=== PATIENT | female | born 1945 | race Caucasian/White ===

== ENCOUNTER 2018-12-14 07:03 | Day surgery (SDC) | payer MEDICARE, SELFPAY ==
--- NOTE | 2018-12-14 | BUN_PTH ---
PATIENT: TREY CALVERT LOC[place] [facility] [place][id number] AGE/SX: 73/F ROOM: RE12/14/[address]: Dr. Marcelo Ragland DPM : 1945 BED: DIS: 12/14/2018 SPEC #: [id number] RECD: 12/14/18 14:23 STATUS: RACQUEL YIN #: [id number] TONY: 12/14/18 00:[address]: Marcelo Ragland DEPT: SURGICAL PATHOLOGY RECD BY: Temo Dickinson ENTERED: 12/14/18 14:23 SP TYPE: BUNION OTHR DR: Dr. Marcelo Borges MD Tissues: Bony tissue, NOS Procedures: Decalcification bone/plaque Surgery Specimen Level IV HEADER OPERATION: Bunionectomy/amputation second toe, left PRE-OP DIAGNOSIS: Hallux valgus bunion, second digit hammertoe TISSUE SUBMITTED: Bunion from great toe and second toe MICROSCOPIC DIAGNOSIS Bunion great toe and second toe, amputation second toe and bunionectomy: Pieces of bone and portion of toe with reactive changes, clinically bunion great toe and second toe. SJ:antonella 12/19/18 MICROSCOPIC DESCRIPTION Slides are reviewed. GROSS DESCRIPTION Received in fixative is one container labeled with the patient's name and designated bunion left great toe, second toe of left foot. The specimen consists of a toe received in an almost near L-shaped configuration measuring 3.5 cm in length and approximately 1.5 cm in diameter. Also present in the specimen container are four discoid fragments of bone measuring in aggregate 3.5 x 2.5 x 0.3 cm. Vamp Cut Out Worker sections are submitted in three cassettes after decalcification as follows: 1 - veterans contact representative section of bone free in container, 2 & 3 - longitudinal section of toe. / AM:antonella 12/14/18 TC:5 CPT: 71353, 23558
[2018-12-14 07:25] VITALS: BP 151/75; PULSE 65; RESP 16; TEMP 36.7; O2SAT 95; BMI 36.9
--- NOTE | 2018-12-14 08:40 | RAD_ITS ---
STUDY: X-RAY LEFT FOOT, RIGHT TOE REASON FOR EXAM: Female, 73 years old. Bunionectomy. Amputation of the second toe. TECHNIQUE: 3 coned-down intraoperative view(s) of the toe were obtained. COMPARISON: None. FINDINGS: Intraoperative imaging demonstrates bunionectomy and resection of the second toe. RAD/Toe(s) Min 2 Views IMPRESSION: Intraoperative imaging provided for bunionectomy and resection of the second toe. Electronically Signed: Saad Vaca MD at 13:22 EST , Service support ,
[2018-12-14] MEDS: Bupivacaine Mpf 0.5% 30 ML VIAL (09:32)
--- NOTE | 2018-12-14 09:45 | RAD_ITS ---
STUDY: X-RAY - LEFT FOOT CLINICAL: Female, 73 years old. Status post bunionectomy and resection of the second toe. TECHNIQUE: 2 view(s) of the foot. COMPARISON: None. FINDINGS: There is a plantar calcaneal spur. Normal visualized subtalar, talonavicular, calcaneocuboid, tarsal and tarsometatarsal articulations. Normal metatarsi. The patient is status post bunionectomy. Normal tibial and fibular sesamoid bones. Normal interphalangeal joint of the great toe. Normal phalanges of the great toe. Normal second through fifth metatarsophalangeal joints. Status post resection of the phalanges of the second toe. Soft tissue swelling. RAD/Foot 2 Views IMPRESSION: Postoperative changes secondary to a bunionectomy and resection of the second toe. Electronically Signed: Saad Vaca MD at 11:41 EST , Service support ,
[2018-12-14 09:46] VITALS: BP 147/68; BP 151/75; PULSE 75; RESP 16; TEMP 36.1; O2SAT 95
--- NOTE | 2018-12-14 09:47 | DCINST_ITS ---
Discharge Diet: Light diet - advance as tolerated Discharge Activity: May Not Drive, Use Walker Weight Bearing Status: Partial weight bearing - Ok to put weight only on left heel with use of walker, no weight on toes of the left foot Keep extremity elevated above heart level: Left Leg - Keep foot elevated for at least 50 minutes of every hour using pillows Call your doctor if your incision/area has: Continuous Slow Oozing, Sudden Increased Bleeding, Foul Smelling Discharge Call your doctor if you observe: Fever of 101 or Higher, Shortness of breath, Chest pain, Calf discomfort, Uncontrolled pain Cleanse incision/area with: Do not get Incision Wet, Keep Dressing Clean & Dry Allergies/Adverse Reactions: Allergies meperidine HCl [From Demerol] Allergy (Severe, Verified 12/07/18 10:47) Swelling poison adelaide extract [Poison Adelaide Extract] Allergy (Verified 12/07/18 10:47) Rash atorvastatin calcium [From Lipitor] Adverse Reaction (Verified 12/07/18 10:47) Upset Stomach cefaclor [From Ceclor] Adverse Reaction (Verified 12/07/18 10:47) Other doxycycline Adverse Reaction (Verified 12/07/18 10:47) Upset Stomach hydrocodone Adverse Reaction (Verified 12/07/18 10:47) Upset Stomach Medications to take at Discharge Aspirin E.C. [Ecotrin] 81 mg PO DAILY@0800 09/14/14 Hydrochlorothiazide 25 mg PO DAILY 09/14/14 Lansoprazole [Prevacid] 30 mg PO DAILY 09/14/14 Potassium Chloride [K-Dur] 20 meq PO DAILY 09/14/14 Rosuvastatin Calcium [Crestor] 40 mg PO DAILY 09/14/14 Diltiazem HCl [Diltiazem 24Hr ER] 120 mg PO DAILY 11/16/15 Escitalopram Oxalate [Lexapro] 5 mg PO QHS 11/17/15 Alendronate Sodium [Fosamax] 70 mg PO Q7D@0700 12/14/16 traMADol [Ultram (G)] 50 mg PO DAILY 09/02/17 Pramipexole Di-HCl [Mirapex] 0.5 mg PO BID 12/07/18 Oxycodone HCl/Acetaminophen [Percocet 5/325] 1 tab PO Q6H PRN PRN 3 Days #25 tab 12/14/18 The following prescriptions were given: Oxycodone HCl/Acetaminophen [Percocet 5/325] 1 tab PO Q6H PRN PRN 3 Days #25 tab PRN Reason: Pain Primary Care Physician: Marcelo Borges MD [Primary Care Provider] - Test Results: Test results from this visit will be discussed in further detail at your follow- up appointment, if applicable. Please Follow Up With: Marcelo Ragland DPM When: within 1 week, sooner if needed
--- NOTE | 2018-12-14 09:48 | OP.PCM_ITS ---
Report of Operation Date of Procedure: 12/14/18 Pre-Operative Diagnosis: Hallux valgus and 2nd digit hammer toe, left foot Post-Operative Diagnosis: Same Surgery/Procedure Performed:: Bunionectomy left foot and 2nd toe amputation left foot insurance associate: yes - Dr. Herminio Kaufman Type of Anesthesia:: Local MAC Specimen's removed: Bunion left foot and 2nd toe left foot Estimated Blood Loss (mL): 1mL Description of Procedure: INDICATIONS: This is a 73-year-old female with severe contracture of the toes in the left foot with the second toe the worst, and severe hallux valgus. There is significant hallux valgus bunion and the 2nd toe is severely contracted, hammered and medially deviated overriding the hallux. There is hallux valgus deformity with hallux abutting into the third toe with the second toe dorsally contracted over the hallux. There was instability of the second metatarsophalangeal joint, and osteoarthritis present. The bunion 1st metatarsal head and the dorsal second toe rubs and irritates on the dorsal aspect when she is wearing shoes. We discussed reconstruction versus simple bunionectomy with 2nd toe amputation given the deformity, this was discussed with her in detail. Advise reconstruction would be quite extensive, given the hallux valgus and contracture of the hallux and bunion present as well as severe contracture of the second toe with deviation. She does have a history of peripheral arterial disease. She was sent to Dr. Campoverde and Dr. Saha (sorting grapple operator) for further evaluation. He did an angiogram, he felt the patient would heal from the second toe amputation; however, advised against reconstruction given her vascular disease. We agreed not to proceed forward with reconstruction due to the risks. So the options of monitoring, nonsurgical management versus amputation were discussed with her. She already had tried other extensive conservative management changes in shoegear, padding, offloading, however, symptoms persist. She elected to proceed forward with amputation of the second toe. This was discussed with her in great detail and again the rationale of this was reviewed with her in great detail. All other goals, expectations and possible benefits were reviewed with her. All the risks and potential complications were discussed with her in great detail. She exp ressed understanding and agreement, wanted to proceed forward with surgical intervention of amputation of second toe. The consent form was reviewed with her and she freely signed them. OPERATIVE PROCEDURE: The patient was brought back into the operating room, was placed on to the operating table in supine position. She was carefully secured to the operating table with safety belt around her waist. A well-padded pneumatic tourniquet was applied around her left ankle. A timeout was performed. The patient was properly identified and surgical plan was confirmed. The patient did receive antibiotic prophylaxis, 900 mg of clindamycin intravenous. The patient received MAC anesthesia per the anesthesiologist. A local nerve block was completed to the first and second ray on the left foot using 10 mL of 0.5% bupivacaine plain, after the overlying skin was cleansed with 70% isopropyl alcohol. The left foot was scrubbed, prepped and draped in the usual aseptic fashion. Further attention was directed to the left foot and again there was noted to be severe contracture of the second toe overriding the hallux and rigidly contracted. There was osteoarthritis present to the toe and the foot as well. There was a significant medial eminence to the 1st metatarsal head bunion. There as noted to be significant limited range of motion present, with grinding consistent with hallux rigidus and osteoarthritis. There was dorsal jamming present with crepitus consistent with osteoarthritis hallux limitus/rigidus. A linear longitudinal skin incision was made overlying the dorsal medial 1st MTPJ, medial to the Extensor Hallucis Longus tendon using a 15 scalpel blade. Careful dissection was completed down through the subcutaneous tissue layer, down to the 1st MTPJ capsule, which was incised with a 15 scalpel blade. The 1st MTPJ capsule was partially reflected exposing the dorsal and medial aspect of the 1st metatarsal head. The cartilage was visualized and there were significant degenerative changes to the 1st metatarsal phalangeal joint. There was noted to be a very large medial and dorsal eminence which were resected using a powered sagittal saw. This was resected and sent to pathology as specimen. The site was decompressed which was the goal of this procedure. The site was flushed out with copious amounts of normal saline solution. The joint capsule was reapproximated in neutral position using 3-0 Vicryl, the subcutaneous tissue layer was reapproximated using 3-0 Vicryl, the skin was reapproximated using 4-0 Nylon. Next attention was directed to the second toe where a racket shaped incision was made around the base of the second toe, preserving a flap for closure. This was made down to bone. The second metatarsophalangeal joint and extensor and flexor tendons were incised resecting the toe and disarticulating the toe at the second metatarsophalangeal joint. The toe was passed from the surgical site and sent to pathology for further evaluation. The second metatarsal was visualized, it was noted to be healthy and viable. All remaining tissues appeared to be healthy and viable as well. There was no evidence of infection present. The site was flushed out with copious amounts of normal saline solution. The subcutaneous tissue layer was carefully reapproximated using 3-0 Vicryl and skin was carefully reapproximated using 3-0 Nylon. Intraoperative fluoroscopy confirmed resection of the second toe at the second metatarsophalangeal joint. Image was saved and placed in the patient's chart. The patient tolerated the above procedure well and anesthesia well with no complications. She was transported from the operating room to the recovery room with vital signs stable and in good condition. Postoperative orders were placed, postoperative x-rays were obtained, 3 views left foot, which confirmed resection of the second toe at the second metatarsophalangeal joint and simple bunionectomy. Otherwise, no acute findings were present. She is to remain partial weightbearing to the left foot (only put weight on the heel if needed) with no weight to the forefoot, must use of walker with any ambulation. She was dispensed a surgical shoe to keep the foot protected while in transit and she is to keep the foot elevated. She was dispensed prescription for pain control, Percocet 5mg/325mg (she relates she can take with no adverse reactions and tolerates well) 1 tab by mouth every 6 hours as needed for pain. She is to keep the dressing clean, dry and intact and follow up with me within 1 week or sooner if needed. Grafts/Implants Used: None - Complications None
[2018-12-14 10:00] VITALS: BP 150/70; BP 151/75; PULSE 63; RESP 16; O2SAT 96
[2018-12-14 10:15] VITALS: BP 148/86; BP 151/75; PULSE 65; RESP 16; TEMP 36.1; O2SAT 95
[2018-12-14 11:26] VITALS: BP 146/84; BP 151/75; PULSE 72; RESP 16; TEMP 36.2; O2SAT 95
== END 2018-12-14 11:28 | disposition home or self-care (01) ==
LOC: SDC 07:04 → AC 07:06
PROVIDERS: Family Provider Family Medicine; PCP Family Medicine; Referring Provider Podiatrist; Visit Provider Podiatrist
PROC: (CPT 28292; principal; 2018-12-14 08:15)
DX: M20.12 Hallux valgus (acquired), left foot (principal); M20.42 Other hammer toe(s) (acquired), left foot; M21.612 Bunion of left foot; I73.9 Peripheral vascular disease, unspecified; Z79.899 Other long term (current) drug therapy; Z79.82 Long term (current) use of aspirin; K21.9 Gastro-esophageal reflux disease without esophagitis; Z86.718 Personal history of other venous thrombosis and embolism; F32.9 Major depressive disorder, single episode, unspecified; I10 Essential (primary) hypertension; Z87.891 Personal history of nicotine dependence; G25.81 Restless legs syndrome; E78.2 Mixed hyperlipidemia
CPT/HCPCS: 01480; 28292; 28820; 73620; 73660; 76000; 88305; 88311; J7120; J2405

== ENCOUNTER → 2019-02-19 | Outpatient (CLI) | payer MEDICARE, SELFPAY ==
--- NOTE | 2019-02-19 10:57 | US_ITS ---
STUDY: SUPERFICIAL ULTRASOUND - LEFT UPPER POSTERIOR ARM. REASON FOR EXAM: Female, 74 years old. Palpable abnormality. TECHNIQUE: A superficial ultrasound was performed with real-time and static avila-scale imaging. COMPARISON: None. FINDINGS: The palpable abnormality corresponds to a 1.2 cm x 0.4 cm x 0.5 cm echogenic nodule suggestive of a lipoma. US/Ext Non Vasc Limited/Soft Tiss IMPRESSION: The palpable abnormality corresponds to a 1.2 cm x 0.4 cm x 0.5 cm lipoma. Electronically Signed: Saad Vaca, at 11:21 EDT , Service support ,
== END | disposition home or self-care (01) ==
LOC: OPUS 10:53
PROVIDERS: Family Provider Family Medicine; PCP Family Medicine; Referring Provider Nurse Practitioner Family; Visit Provider Nurse Practitioner Family
DX: D17.22 Benign lipomatous neoplasm of skin and subcutaneous tissue of left arm (principal)
CPT/HCPCS: 76882

== ENCOUNTER → 2019-03-27 | Outpatient (CLI) | payer MEDICARE, SELFPAY | END | disposition home or self-care (01) | PROVIDERS: Family Provider Family Medicine; PCP Family Medicine; Referring Provider Urology; Visit Provider Urology | DX: R30.0 Dysuria (principal) | CPT/HCPCS: 36415; 87086; 87088 ==

== ENCOUNTER → 2019-10-21 17:14 | Outpatient (CLI) | payer MEDICARE, SELFPAY | PROVIDERS: Family Provider Family Medicine; PCP Family Medicine | DX: N39.0 Urinary tract infection, site not specified (principal) | CPT/HCPCS: 87086; 87088 ==

== ENCOUNTER → 2020-07-13 14:00 | Outpatient (CLI) | payer MEDICARE, SELFPAY ==
--- NOTE | 2020-07-09 08:53 | RAD_ITS ---
STUDY: X-RAY CHEST REASON FOR EXAM: Female, 75 years old. PRE OP HIP SURGERY, NO CURRENT CHEST COMPLAINTS TECHNIQUE: PA and lateral views of the chest. COMPARISON: Comparison is made with prior study dated 11/16/2015. FINDINGS: Mild degree of increased markings at the lung bases suggest mild scarring with mild atelectasis. There is no demonstrated pleural abnormality. Normal size heart. Normal mediastinum and jay. Normal visualized pulmonary arteries. There is atherosclerotic calcification of the aortic arch with tortuosity. There are diffuse degenerative changes of the visualized thoracic spine. Healed bilateral humeral neck fractures. There is no demonstrated abnormality of the visualized soft tissue structures of the upper abdomen. RAD/Chest PA and Lateral IMPRESSION: Mild degree of increased markings at the lung bases suggestive of probably atelectasis superimposed on scarring. Electronically Signed: Saad Vaca, at 10:16 EDT , Service support ,
--- NOTE | 2020-07-09 08:55 | EKG12_ITS ---
Test Reason : PRE OP Blood Pressure : / mmHG Vent. Rate : 070 BPM Atrial Rate : 070 BPM P-R Int : 140 ms QRS Dur : 078 ms QT Int : 390 ms P-R-T Axes : 073 057 051 degrees QTc Int : 421 ms Normal sinus rhythm Normal ECG Confirmed by ROSE MARIE CHASE, JENNIFER ([id number]), medical editor ZIYAD CASAS ([id number]) on 07/10/2020 11:36:23 A M Referred By: Rosey Nieto Confirmed By:MORALES TROTTER MD
[2020-07-09 09:13] LABS: Hematocrit 46.4 % (37-47); Hemoglobin 15.1 g/dL (12.0-15.0); Mean Corp Hgb Conc 32.5 g/dL (32-36); Mean Corpuscular Volume 95.3 fL (81-99); Mean Platelet Vol. 9.8 fl (6.2-12.0); Platelet Count 166 K/mm3 (150-450); RBC Distribution Width CV 12.8 % (11.6-14.6); RBC Distribution Width SD 45.1 fl (35.1-43.9); Red Blood Count 4.87 M/mm3 (4.2-5.4); White Blood Count 6.2 K/mm3 (4.4-11.0)
[2020-07-09 09:33] LABS: Anion Gap 3 (5-15); BUN 20 mg/dL (7-18); BUN/Creat Ratio 24.5 RATIO (10-20); Calcium,Total 9.3 mg/dL (8.5-10.1); Chloride 107 mmol/L (98-107); Creatinine, Serum 0.82 mg/dL (0.55-1.02); EST Glomerular Filtration Rate 73 mL/min (>60); Est Glom Filt Rate - Afr Amer 88 mL/min (>60); Glucose 93 mg/dL (74-106); Sodium Level 144 mmol/L (136-145)
== END ==
LOC: PAT 08-20 13:29
PROVIDERS: Anesthesiology; PCP Family Medicine; Referring Provider Physician Assistant; Visit Provider Orthopaedic Surgery
DX: Z01.811 Encounter for preprocedural respiratory examination (principal); Z01.810 Encounter for preprocedural cardiovascular examination; U07.1 COVID-19
CPT/HCPCS: 71046; 80048; 83735; 85027; 87081; 87635; 93005; C9803; U0003

== ENCOUNTER 2020-08-17 13:49 | Observation (INO) | payer MEDICARE, SELFPAY ==
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
[2020-08-17] VITALS (12 sets, daily range): BP systolic 114–152; BP diastolic 47–84; PULSE 59–84; RESP 16–18; TEMP 36.1–36.7; O2SAT 93–100; BMI 36.5
[2020-08-17] MEDS: Lactated Ringers 1,000 ML 100 ML IV (11:56)
[2020-08-17] MEDS: Scopolamine 1mg/72hr Patch 1 PATCH TRANSDERM. (12:17)
[2020-08-17] MEDS: Acetaminophen 500 MG Tablet 1000 MG PO ×2 (12:22→20:09)
[2020-08-17] MEDS: Celecoxib 200 MG Capsule 400 MG PO (12:22)
[2020-08-17] MEDS: Gabapentin 600 MG Tablet PO (12:22)
[2020-08-17 12:36] LABS: Bedside Glucose 124 mg/dL (70-110)
[2020-08-17] MEDS: Cefazolin 2 GM in 0.9% Normal Saline 100 ML IV (13:44)
--- NOTE | 2020-08-17 15:07 | PRO.PCM_ITS ---
Procedure Report Date of Procedure: 08/17/20 Preoperative diagnosis: Right hip primary osteoarthritis Postoperative diagnosis: Same Operation: Right total hip replacement surgery Surgeon: Dr. Steve Delarosa MD Chipper: Gil Metz PA-C Second assistant in nursing Carmen Russ Anesthesia: Spinal Anesthesiologist; Dr. Melendez Complications: None EBL: 250 cc Special medications: IV [Ancef], IV Tranexamic acid wash Indications for surgery : Patient is a 75 -year-old [female] with a long- standing history of right severe hip pain that has failed adequate nonoperative treatment. Due to persistent pain and disability, they decided to proceed with hip replacement surgery. Appropriate informed consent was obtained and signed. Appropriate medical workup was performed preoperatively and patient was deemed safe for surgery by the anesthesia department assistant to the president, physician assistant in nursing, was utilized throughout the entire procedure. They were vital in helping with patient positioning, holding of retractors, exposing the tissues adequately for safe completion of the procedure including cutting of the bone, helping paddock judge appropriate alignment and sizing of the components, implantation of the components, as well as wound closure, bandage application, and safe patient transfer. Without instructor adjunct surgical technician, physician assistant in nursing, surgical time would have been significantly increased, and surgical outcome would have been less optimal. Operative findings: Patient had severe arthritis of the involved hip joint. They underwent a small posterior approach to the hip. We utilized a size [3 press-fit Accolade II stem 127 degree neck angle, a press fit acetabular component size 52 trident cluster, Trident X3 10? hooded polyethylene liner with a 36 mm inner diameter, a Biolox ceramic femoral head size [36] with a +0 neck length. This reproduced there anatomy nicely. Clinically good leg lengths were noted. Good hip stability through range of motion with no undue pistoning. Standard wound closure in layers, followed by savanna, followed by Mepilex dressing Details of procedure: Patient was taken to the operating room and transferred to the operating table. Given appropriate anesthetic agent by that department. Patient was then rolled into a lateral decubitus position with the involved painful hip up in the air. Appropriate timeouts had been performed. Hip had been appropriately marked with my initials. Padded anterior and posterior position was utilized. Axillary roll placed. CRISTELA hose and SCDs on the nonoperative limb utilized throughout the procedure. Operative lower extremity was prepped padded and draped in the usual orthopedic sterile fashion for the procedure. I injected the pain relieving solution in the standard sterile technique of the soft tissues of the hip carefully. Incision was made curving over the tip of the greater trochanter posteriorly. Full thickness skin flaps are raised down on the fascia guido. Fascia guido was opened in length with our incision. Charnley self-retaining hip retractor was carefully placed by the surgeon. Leg was appropriately rotated by the assistant in nursing. Retractor was used to lift the abductors anteriorly to visualize the piriformis tendon and external rotators. Piriformis tendon and external rotators released off the greater trochanter with the Bovie. Tagging suture was placed in each of these separately. We then split the tissue superior to the piriformis tendon through capsule and onto the pelvis. Acetabular labrum was also divided. With traction and manipulation arthritic femoral head was dislocated from the pelvis. Retractors were carefully placed around the femoral neck. Cutting guide was utilized to map out the proposed cut approximately 1 fingerbreadth above the lesser trochanter. This femoral neck cut was carried out with a saw. Arthritic femoral head removed and measured and inspected. Inferior acetabular retractor was placed by the surgeon, held by the assistant in nursing. Bone hook utilized to pull the proximal femur anteriorly. Labrum removed from about the acetabulum a long knife. Tissue removed from the depth of the acetabulum with the Bovie. Arthritic acetabulum was noted. We began reaming with the appropriate sized reamer based on the measurement of the femoral head. Reaming was done with 45? of abduction, 20? of anteversion, reproducing there anatomy. Reaming was done incrementally up to the appropriate size creating a smooth cylindrical acetabulum was done down to healthy bone. Trial acetabular component 1 millimeters smaller than the largest reamer was utilized with the outrigger device. Appropriate abduction and anteversion confirmed as well as size and position of cup. We irrigated with bulb syringe saline. Appropriate acetabular opponent was opened and hammered into position with the outrigger device, with 45? of abduction and 20 degrees of anteversion. We could see through the hole in thrb cup it was adequately down onto the bone in the pelvis. Good stability was noted. Trial liner with a 10? melvin was appropriately positioned. Any anterior and/ or posterior osteophytes removed with an osteotome, rongure. Acetabular retractors removed. A proximal femoral elevator utilized. Held by the assistant in nursing. We used a sharp awl entering down inside the bone of the prox imal femur. Utilized the keith cutting osteotome the proximal lateral greater trochanteric region. The fragment removed. Broaching was then done from the smallest broach, upto the appropriate size. Good stability was confirmed. We then trialed the construct with a standard neck length and appropriate sized femoral head on 127? angle neck. We were happy with the construct. Good stability to flexion, rotation. At this point trials removed. Now placed the appropriate polyethylene acetabular liner into a clean dry previously placed shell. This was hammered into position. Suction device was used to confirm its stability. #3 Accolade 2 stem was hammered into position, seated down to the same position the trial had been. We now again trialed and appropriate neck length decided upon. It was then opened. Now impacted the appropriate sized femoral head, neck construct onto the clean dried trunion. Was noted to be stable. Hip was inspected, and joint was reduced for a final time. Good hip stability and leg lengths noted. This was then irrigated with saline and cleaned. Next the remainder of the pain relieving solution was injected carefully throughout the soft tissues of the hip joint. Closure was carried out with a combination of #1 Vicryl, running #2 strata fix in the fascia guido, followed by mid layer #1 Vicryl with #1 strata fix running. Next running 0 strata fix, followed by skin savanna, Mepilex dressing. We placed CRISTELA hose and SCD on the operative leg. Patient awoken from the anesthetic and transferred back to room bed in recovery room in satisfactory condition. Patient will be observation status for pain management, IV antibiotics, medication for DVT prevention. . Hopeful discharge to home in 1 days Patient was interviewed and examined preoperatively. Her history and physical exam was updated and reviewed. There were no significant changes noted. We will plan Xarelto 10 mg daily for DVT prevention postoperatively. Ancef 2 g IV was given preoperatively. This note was generated with [employer] dictation software. It may contain incorrect words, spelling, and punctuation that were not noted in checking the note before signing.
--- NOTE | 2020-08-17 15:45 | RAD_ITS ---
STUDY: X-RAY - PELVIS AND RIGHT HIP REASON FOR EXAM: Female, 75 years old. Postop. TECHNIQUE: 2 views of the pelvis and hip. COMPARISON: None. FINDINGS: There is a non-specific bowel gas pattern. Normal visualized soft tissue structures. Normal bilateral iliac wings, sacroiliac joints and visualized sacrum. Normal bilateral superior and inferior pubic rami. Normal pubic symphysis. Normal bilateral ischial tuberosities. There are marked degenerative changes of the left hip. There is a right total hip arthroplasty. The prosthetic components are intact and articulate normally with each other. There is no fracture or loosening from the underlying bone. Air is seen surrounding soft tissues with lateral skin clips. RAD/Hip Min 2 Views (Portable) IMPRESSION: Status post left total hip arthroplasty. Electronically Signed: Yosef Murray DO at 16:16 EDT Tel [phone], Service support ,
[2020-08-17] MEDS: Lactated Ringers 1,000 ML 125 ML IV ×2 (15:57→21:57)
[2020-08-17] MEDS: Cefazolin 1 GM/50 ML BAG IV (20:03)
[2020-08-17] MEDS: Escitalopram Oxalate 10 MG Tablet 5 MG PO (21:55)
[2020-08-17] MEDS: Pramipexole Di-HCl 0.5 MG Tablet PO (21:55)
[2020-08-17] MEDS: Rosuvastatin 20 MG Tablet 40 MG PO (21:55)
[2020-08-17] MEDS: Senna/Docusate Sodium 1 Tablet 2 TABLET PO (21:56)
[2020-08-18] MEDS: Cefazolin 1 GM/50 ML BAG IV ×2 (01:44→07:29)
[2020-08-18 01:46] VITALS: BP 147/44; PULSE 84; RESP 20; TEMP 36.9; O2SAT 97
[2020-08-18] MEDS: Acetaminophen 500 MG Tablet 1000 MG PO ×2 (05:22→12:10)
[2020-08-18] MEDS: Rivaroxaban 10 MG Tablet PO (05:23)
[2020-08-18 05:26] VITALS: BP 143/60; PULSE 88; RESP 18; TEMP 36.9; O2SAT 93
[2020-08-18 05:41] LABS: Hematocrit 40.4 % (37-47); Hemoglobin 13.3 g/dL (12.0-15.0); Mean Corp Hgb Conc 32.9 g/dL (32-36); Mean Corpuscular Volume 91.2 fL (81-99); Mean Platelet Vol. 9.3 fl (6.2-12.0); Platelet Count 142 K/mm3 (150-450); RBC Distribution Width CV 12.1 % (11.6-14.6); Red Blood Count 4.43 M/mm3 (4.2-5.4); White Blood Count 12.1 K/mm3 (4.4-11.0)
[2020-08-18 06:00] LABS: Anion Gap 6 (5-15); BUN 16 mg/dL (7-18); BUN/Creat Ratio 19.6 RATIO (10-20); Calcium,Total 8.9 mg/dL (8.5-10.1); Chloride 104 mmol/L (98-107); Creatinine, Serum 0.82 mg/dL (0.55-1.02); EST Glomerular Filtration Rate 73 mL/min (>60); Est Glom Filt Rate - Afr Amer 88 mL/min (>60); Estimated Creatinine Clearance 71.68 ml/min; Glucose 156 mg/dL (74-106); Potassium 3.6 mmol/L (3.5-5.1); Sodium Level 140 mmol/L (136-145)
--- NOTE | 2020-08-18 07:41 | PN.ORTHO_ITS ---
Subjective: Patient sitting at bedside eating breakfast. Patient's pain is very well managed. Patient denies chest pain, shortness of breath, calf pain, nausea vomiting. No other complaints ready for discharge home today. Objective: Dressing is clean dry intact. Negative signs or symptoms of DVT. Vital signs and labs reviewed noted medical record. Patient no respiratory distress, speaking in full sentences. - Physical Exam Vitals/I&O's: Vital Signs Temp Pulse Resp BP Pulse Ox 98.4 F 88 18 143/60 H 93 08/18/20 05:26 08/18/20 05:26 08/18/20 05:26 08/18/20 05:26 08/18/20 05:26 Oxygen Flow Rate (L/min) 6 Oxygen Delivery Method Room Air Weight: 76.6 kg Body Mass Index (BMI) 36.5 Intake and Output for Last 24 Hours 08/16/20 08/17/20 08/18/20 23:59 23:59 23:59 Intake Total 2192.83 / 2662.83 1122.75 / 1122.75 Balance 2192.83 / 2662.83 1122.75 / 1122.75 General: Alert, Oriented x3, Cooperative HEENT: PERRLA Oral: Moist Mucosa Neurological: Cranial nerves II-XII grossly intact Psych/Mental Status: Normal Affect, Alert and oriented to time, place, person, mood and affect Laboratory Results 08/17/20 11:39: POC Glucose 124 H 08/18/20 05:35: WBC 12.1 H, RBC 4.43, Hgb 13.3, Hct 40.4, MCV 91.2, MCH 30.0, MCHC 32.9, RDW Std Deviation 41.0, RDW Coeff of Davidson 12.1, Plt Count 142 L, MPV 9.3 08/18/20 05:35: Sodium 140, Potassium 3.6, Chloride 104, Carbon Dioxide 30.0, Anion Gap 6, BUN 16, Creatinine 0.82, Estim Creat Clear Calc 71.68, Est GFR (MDRD) Af Amer 88, Est GFR (MDRD) Non-Af 73, BUN/Creatinine Ratio 19.6, Glucose 156 H, Calcium 8.9 Current Medications Acetaminophen (Tylenol) 1,000 mg PO Q8H LETA Last Admin: 08/18/20 05:22 Dose: 1,000 mg Documented by: Alendronate Sodium (Fosamax) 70 mg PO Q7D@0700 [facility] Diltiazem HCl (Cardizem Cd) 120 mg PO DAILY [facility] Escitalopram Oxalate (Lexapro) 5 mg PO QHS [facility] Last Admin: 08/17/20 21:55 Dose: 5 mg Documented by: Hydrochlorothiazide (Hctz) 25 mg PO DAILY [facility] Cefazolin Sodium () 1 gm in 50 mls @ 150 mls/hr IV Q6H [facility] Stop: 08/18/20 08:04 Last Admin: 08/18/20 07:29 Dose: 150 mls/hr Documented by: Insulin Human Lispro (Humalog Kwikpen (Bkc)) 1 - 6 unit SC Q4H PRN PRN; Protocol PRN Reason: BG>/= 180, SEE PROTOCOL Morphine Sulfate () 2 - 4 mg IV Q2H PRN PRN PRN Reason: Pain Score 4-10/10 Ondansetron HCl (Zofran) 4 mg IV Q8H PRN PRN PRN Reason: NAUSEA Oxycodone HCl (Oxyir) 5 - 10 mg PO Q4H PRN PRN PRN Reason: Pain Score 4-10/10 Pantoprazole Sodium (Protonix) 40 mg PO DAILY [facility] Potassium Chloride (K-Dur) 20 meq PO DAILY@0800 [facility] Last Admin: 08/18/20 07:37 Dose: 20 meq Documented by: Pramipexole Dihydrochloride (Mirapex) 0.5 mg PO BID [facility] Last Admin: 08/17/20 21:55 Dose: 0.5 mg Documented by: Rivaroxaban (Xarelto) 10 mg PO DAILY@0600 [facility] Last Admin: 08/18/20 05:23 Dose: 10 mg Documented by: Rosuvastatin Calcium (Crestor) 40 mg PO QHS [facility] Last Admin: 08/17/20 21:55 Dose: 40 mg Documented by: Senna/Docusate Sodium (Senokot-S, Velma-Colace) 2 tablet PO BID [facility] Last Admin: 08/17/20 21:56 Dose: 2 tablet Documented by: Sodium Chloride () 10 - 40 ml IV UD PRN PRN Reason: SALINE FLUSH Medical Necessity - Tobacco Use Smoking Status: Former smoker Assessment/Plan Status post right total hip arthroplasty Plan 1. Continue all pain medications as prescribed 2. Continue physical therapy, weight-bear as tolerated with walker. 3. Xarelto 10 mg 1 p.o. x7 days for postop DVT prophylaxis, then patient will be converted to aspirin 81 mg 1 p.o. daily for 23 days 4. Encourage incentive spirometry 5. Continue outpatient therapy at [facility] 6. Follow-up with Dr. Steve Delarosa as scheduled 7. Discharge home today after p.m. therapy
--- NOTE | 2020-08-18 07:52 | PCM.DC.THR ---
Discharge Diet: No Restrictions Discharge Activity: May Not Drive, May Shower, Use Walker May shower in (days): 3 - only if incision is dry and without drainage. Do NOT soak/submerge in tub/pool/garcia/stream/hot tub. May resume sexual activity in: No Restrictions Ice area for (Minutes): 20 - every hour while awake Weight Bearing Status: Weight bearing as tolerated Lifting Restrictions: 20 pounds Elevate: Operative Extremity Call your doctor if your incision/area has: Continuous Slow Oozing, Sudden Increased Bleeding, Increased Pain/ Swelling, Increased Redness, Foul Smelling Discharge Call your doctor if you observe: Fever of 101 or Higher, Inability to urinate, Inability to have a bowel movement, Shortness of breath, Fainting spells, Chest pain, Increased palpitations (irregular heartbeat), Calf discomfort, Uncontrolled pain Change Dressing in (Days):: 0 - Change daily and as needed. Remove Dressing in (days):: 8 Cleanse incision/area with: Soap & Water Allergies/Adverse Reactions: Allergies meperidine HCl [From Demerol] Allergy (Severe, Verified 07/13/20 13:56) Swelling poison adelaide extract [Poison Adelaide Extract] Allergy (Verified 07/13/20 13:56) Rash atorvastatin calcium [From Lipitor] Adverse Reaction (Verified 07/13/20 13:56) Upset Stomach cefaclor [From Ceclor] Adverse Reaction (Verified 08/17/20 11:47) PALPITATIONS, CHEST PRESSURE, SHORT OF BREATH doxycycline Adverse Reaction (Verified 07/13/20 13:56) Upset Stomach hydrocodone Adverse Reaction (Verified 07/13/20 13:56) Upset Stomach Medications to take at Discharge Hydrochlorothiazide 25 mg PO DAILY 09/14/14 Lansoprazole [Prevacid] 30 mg PO DAILY 09/14/14 Potassium Chloride [K-Dur] 20 meq PO DAILY 09/14/14 Rosuvastatin Calcium [Crestor] 40 mg PO QHS 09/14/14 Diltiazem HCl [Diltiazem 24Hr ER] 120 mg PO DAILY 11/16/15 Escitalopram Oxalate [Lexapro] 5 mg PO QHS 11/17/15 Alendronate Sodium [Fosamax] 70 mg PO Q7D@0700 12/14/16 Pramipexole Di-HCl [Mirapex] 0.5 mg PO BID 12/07/18 Celecoxib [Celebrex] 200 mg PO BID 07/13/20 Acetaminophen [Tylenol] 1,000 mg PO Q8H #90 tab 08/18/20 Aspirin E.C. [Ecotrin] 81 mg PO DAILY@0800 30 Days #30 tab 08/18/20 Oxycodone [Oxyir] 5 - 10 mg PO Q4H PRN PRN 7 Days #84 tab 08/18/20 Rivaroxaban [Xarelto] 10 mg PO DAILY@0600 #6 tab 08/18/20 Senna/Docusate Sodium [Senokot-S] 2 tab PO BID tab 08/18/20 The following prescriptions were given: Aspirin E.C. [Ecotrin] 81 mg PO DAILY@0800 30 Days #30 tab Transmission Status: Received by [facility] [place] [address] Oxycodone [Oxyir] 5 - 10 mg PO Q4H PRN PRN 7 Days #84 tab PRN Reason: Pain Score 4-10/10 [facility] [address] Acetaminophen [Tylenol] 1,000 mg PO Q8H #90 tab Transmission Status: Received by [address] Rivaroxaban [Xarelto] 10 mg PO DAILY@0600 #6 tab Transmission Status: Received by [address] Primary Care Physician: Marcelo Borges MD [Primary Care Provider] - Test Results: Test results from this visit will be discussed in further detail at your follow-up appointment, if applicable. Please Follow Up With: Rosey Nieto PA When: as scheduled
[2020-08-18 09:24] VITALS: BP 157/87; PULSE 85; RESP 18; TEMP 37.2; O2SAT 97
[2020-08-18] MEDS: hydroCHLOROthiazide 25 MG Tablet PO (09:59)
[2020-08-18] MEDS: Senna/Docusate Sodium 1 Tablet 2 TABLET PO (09:59)
[2020-08-18] MEDS: dilTIAZem CD 120 MG Capsule PO (09:59)
[2020-08-18] MEDS: Pantoprazole Sodium 40 MG Tablet PO (09:59)
[2020-08-18] MEDS: Pramipexole Di-HCl 0.5 MG Tablet PO (10:00)
[2020-08-18 10:08] VITALS: RESP 18
--- NOTE | 2020-08-18 14:06 | NURSING ---
RN CM Assessment Introduced role of RN CM to patient. Patient is alert, oriented and able to participate in RN CM Assessment. Care providers, pharmacy, and demographics verified. Admit Dx: Rt Total Hip Arthroplasty Re-Admit: No Barriers/Issues: None PCP: Marcelo Borges Specialists: Darrick Delarosa Preferred [facility]acy: [facility] Insurance: MMO [facility] Rx Benefit: Yes LNOK: Burton Hurst LW/HPOA: Patient states has both completed and here with her, attempted to find them in her belongings and unable to at this time. Aware if found and provided, will make a copy to place on file. Living Arrangements: Lives with her in a [place] home, 3 steps to enter home ADL?s: Independent with ambulation and ADLs Transportation: Both patient and drive. will transport upon DC. DME: Nikita RECIO, extended tub bench HHC: None in past/current SNF: None in past/current. Patient states has been to [facility] Rehab unit in past. Goal: Home with outpatient PT, states already established with [facility], first appt scheduled . Denies any RNCM needs or concerns with DC planning at this time. Aware RNCM remains available for any emerging needs. DC PLAN: Home with Outpatient PT. MARK Garcias
[2020-08-18 14:48] VITALS: BP 151/62; PULSE 81; RESP 18; TEMP 37.2; O2SAT 98
--- NOTE | 2020-08-18 14:52 | PHA.DC.MC ---
Pharmacy Service has performed discharge medication reconciliation and counseling for this patient. 1. ASPIRIN 81MG PO DAILY (AFTER FINISHED TAKING XARELTO) 2. ACETAMINOPHEN 1000MG PO Q8H 3. OXYCODONE 5-10MG PO Q4H PRN PAIN 4-08/22 4. SENNA/DOCUSATE 2T PO BID 5. RIVAROXABAN 10MG PO DAILY The patient's discharge medication list was reviewed for discrepancies and discrepancies were resolved. Home Medications Hydrochlorothiazide 25 mg PO DAILY 09/14/14 Lansoprazole [Prevacid] 30 mg PO DAILY 09/14/14 Potassium Chloride [K-Dur] 20 meq PO DAILY 09/14/14 Rosuvastatin Calcium [Crestor] 40 mg PO QHS 09/14/14 Diltiazem HCl [Diltiazem 24Hr ER] 120 mg PO DAILY 11/16/15 Escitalopram Oxalate [Lexapro] 5 mg PO QHS 11/17/15 Alendronate Sodium [Fosamax] 70 mg PO Q7D@0700 12/14/16 Pramipexole Di-HCl [Mirapex] 0.5 mg PO BID 12/07/18 Celecoxib [Celebrex] 200 mg PO BID 07/13/20 Acetaminophen [Tylenol] 1,000 mg PO Q8H #90 tab 08/18/20 Aspirin E.C. [Ecotrin] 81 mg PO DAILY@0800 30 Days #30 tab 08/18/20 Oxycodone [Oxyir] 5 - 10 mg PO Q4H PRN PRN 7 Days #84 tab 08/18/20 Rivaroxaban [Xarelto] 10 mg PO DAILY@0600 #6 tab 08/18/20 Senna/Docusate Sodium [Senokot-S] 2 tab PO BID tab 08/18/20 The patient was counseled on the following discharge medications and changes in medications for homegoing were reviewed. The Reason for Use, instructions for use, and potential side effects were reviewed for all new medications. The patient's questions regarding all of their medications were answered. The patient was able to verbally demonstrate an understanding of their discharge medications.
== END 2020-08-18 16:14 | disposition home or self-care (01) ==
LOC: MS3 20:43 → SDC 08-18 13:56
PROVIDERS: Admitting Provider Orthopaedic Surgery; PCP Family Medicine; Referring Provider Orthopaedic Surgery; Visit Provider Orthopaedic Surgery
PROC: 0SR90JZ Replacement of Right Hip Joint with Synthetic Substitute, Open Approach (ICD-10-PCS; CPT 27130; principal; 2020-08-17 12:35)
DX: M16.11 Unilateral primary osteoarthritis, right hip (principal); Z86.718 Personal history of other venous thrombosis and embolism; E78.00 Pure hypercholesterolemia, unspecified; I25.10 Atherosclerotic heart disease of native coronary artery without angina pectoris; I10 Essential (primary) hypertension; Z79.899 Other long term (current) drug therapy; Z79.82 Long term (current) use of aspirin; Z87.891 Personal history of nicotine dependence; K21.9 Gastro-esophageal reflux disease without esophagitis; F32.9 Major depressive disorder, single episode, unspecified
CPT/HCPCS: 27130; 73502; 80048; 82962; 85027; 96361; 96365; 96366; 97110; 97116; 97162; 97166; 97530; 97535; 99218; 99251; C1776; J7120; G0378; G0379; G0463

== ENCOUNTER → 2020-12-09 06:20 | Outpatient (CLI) | payer MEDICARE, SELFPAY ==
[2020-08-17 17:47] VITALS: BMI 36.5
--- NOTE | 2020-12-09 11:01 | NEURO_ITS ---
NCS and/or EMG Patient Report Ordering Doctor: Marcelo Ragland DATE OF SERVICE: 12/09/20 Joyce Hurst presents for electrodiagnostic testing of the lower limbs. She reports numbness and burning pain in both feet. She reports symptoms are worse following hip replacement in August 2020. Electrodiagnostic findings: Right peroneal motor nerve demonstrates normal distal latency with reduced amplitude and normal conduction velocity. Left peroneal motor nerve demonstrates normal amplitude, distal latency and conducti on velocity. Normal tibial motor response bilaterally. Prolonged sural latency is noted bilaterally. Normal superficial peroneal and plantar responses. Tibial and peroneal F waves are normal. On needle EMG, all muscles tested in the lower limb showed no evidence of denervation with normal motor unit action potentials. Electrodiagnostic impression: This is an abnormal study in the lower limbs. 1. 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 There is no electrodiagnostic evidence for sciatic neuropathy. 3. No electrodiagnostic evidence is noted for lumbosacral radiculopathy. 4. There is no electrodiagnostic evidence noted for tarsal tunnel syndrome. If there are any further questions, please do not hesitate to contact me
== END ==
PROVIDERS: PCP Family Medicine; Referring Provider Podiatrist; Visit Provider Podiatrist
DX: G62.9 Polyneuropathy, unspecified (principal); R20.0 Anesthesia of skin
CPT/HCPCS: 95886; 95912; 95913

== ENCOUNTER → 2020-12-11 07:22 | Outpatient (CLI) | payer MEDICARE, SELFPAY ==
[2020-08-17 17:47] VITALS: BMI 36.5
[2020-12-11 08:31] LABS: Erythrocyte Sedimentation Rate 32 mm/hr (0-30)
[2020-12-11 08:39] LABS: Absolute Lymphocyte Count 1.63 X10^3/uL (0.83-4.51); Absolute Neutrophil Count 4.3 X10^3/uL (2.0-7.7); Basophil# 0.04 X10^3/uL; Basophil% 0.6 % (0-1); Eosinophil# 0.17 X10^3/uL; Eosinophils% 2.6 % (0-5); Hematocrit 49.2 % (37-47); Hemoglobin 15.4 g/dL (12.0-15.0); Lymphocyte # 1.63 X10^3/ul (4.0); Lymphocyte % 24.7 % (19-41); Mean Corp Hgb Conc 31.3 g/dL (32-36); Mean Corpuscular Hgb 28.5 pg (27.0-32.0); Mean Corpuscular Volume 90.9 fL (81-99); Mean Platelet Vol. 10.1 fl (6.2-12.0); Monocyte# 0.42 X10^3/uL; Monocyte% 6.4 % (0-10); NRBC Flagged by Analyzer 0 % (0-5); Neutrophil # 4.32 X10^3/uL (2.7-7.7); Neutrophil % 65.5 % (47-70); Platelet Count 197 K/mm3 (150-450); RBC Distribution Width CV 13.3 % (11.6-14.6); RBC Distribution Width SD 44.5 fl (35.1-43.9); Red Blood Count 5.41 M/mm3 (4.2-5.4); White Blood Count 6.6 K/mm3 (4.4-11.0)
[2020-12-11 08:46] LABS: Hemoglobin A1c 5.7 % (3.8-5.6)
[2020-12-11 08:49] LABS: Vitamin B12 > 2000 pg/mL (211-911); Vitamin D,25 Hydroxy 63.2 ng/mL
[2020-12-11 13:04] LABS: AST(SGOT) 30 U/L (15-37); Alanine Aminotransfer ALT/SGPT 22 U/L (13-56); Albumin, Serum 3.7 g/dL (3.2-5.0); Alkaline Phosphatase 99 U/L (45-117); Anion Gap 5 (5-15); BUN 21 mg/dL (7-18); BUN/Creat Ratio 25.6 RATIO (10-20); CRP 5.22 mg/L (0.0-3.0); Calcium,Total 9.6 mg/dL (8.5-10.1); Chloride 108 mmol/L (98-107); Creatinine, Serum 0.82 mg/dL (0.55-1.02); EST Glomerular Filtration Rate 72 mL/min (>60); Est Glom Filt Rate - Afr Amer 87 mL/min (>60); Globulin 3.8 g/dL (2.2-4.2); Glucose 102 mg/dL (74-106); Potassium 3.9 mmol/L (3.5-5.1); Protein, Total 7.5 g/dL (6.4-8.2); Rheumatoid Factor < 10.0 IU/mL (<15); Sodium Level 141 mmol/L (136-145); Uric Acid 4.4 mg/dL (2.6-6.0)
[2020-12-14 02:03] LABS: ANTINUCLEAR ANTIBODIES DIRECT Negative (Negative)
[2020-12-23 20:16] LABS: VITAMIN B6 3.9 ug/L (2.0-32.8)
--- NOTE | 2021-03-09 17:15 | PCM.DC ---
Discharge Instructions Follow Up Care Test Results: Test results from this visit will be discussed in further detail at your follow-up appointment, if applicable. Discharge Plan Admission Attending Provider: Marcelo Ragland Primary Care Provider: Marcelo Borges Discharge Orders/Prescriptions Prescriptions: No Action diltiazem HCl [Cartia XT] 180 mg capsule,extended release 24hr 180 mg PO DAILY RF: 0 tramadol 50 mg tablet 50 mg PO DAILY RF: 0 csrcyvcr-oychleegf-DG 3.5-10,000-1 mg/mL-unit/mL-% solution 3 drp OTIC DAILY PRNRF: 0 C-pain cream TOPICAL TID PRN (Reason: pain) RF: 0 duloxetine 30 mg capsule,delayed release(DR/EC) 30 mg PO QAM Qty: 30 RF: 1 potassium chloride 20 MEQ tablet 20 meq PO DAILY RF: 0 lansoprazole 30 MG capsule 30 mg PO DAILY RF: 0 hydrochlorothiazide 12.5 MG capsule 25 mg PO DAILY RF: 0 rosuvastatin 20 MG tablet 40 mg PO QHS RF: 0 alendronate 70 MG tablet 70 mg PO Q7D@0700 RF: 0 pramipexole 0.5 MG tablet 0.5 mg PO BID RF: 0 celecoxib 200 MG capsule 200 mg PO BID RF: 0 acetaminophen 500 MG tablet 1,000 mg PO Q8H Qty: 90 RF: 0 aspirin 81 MG tablet 81 mg PO DAILY@0800 30 Days Qty: 30 RF: 0 Referrals: Marcelo Borges MD [Primary Care Provider] -
== END ==
PROVIDERS: PCP Family Medicine; Referring Provider Podiatrist; Visit Provider Podiatrist
DX: G62.9 Polyneuropathy, unspecified (principal)
CPT/HCPCS: 36415; 80053; 82306; 82607; 82746; 83036; 84207; 84550; 85025; 85652; 86038; 86140; 86431

== ENCOUNTER → 2021-02-08 09:42 | Outpatient (CLI) | payer MEDICARE, SELFPAY ==
[2021-02-08 08:59] VITALS: BMI 37.4
[2021-02-08 11:05] LABS: Thyroid Stim Hormone (TSH) 1.47 uIU/mL (0.358-3.74)
[2021-02-09 16:08] LABS: Free Kappa Light Chains 24.9 mg/L (3.3-19.4); Free Lambda Light Chains 32.1 mg/L (5.7-26.3)
== END ==
PROVIDERS: PCP Family Medicine; Referring Provider Psychiatry & Neurology Neurology; Visit Provider Psychiatry & Neurology Neurology
DX: I10 Essential (primary) hypertension (principal); G62.9 Polyneuropathy, unspecified
CPT/HCPCS: 36415; 83883; 84443

== ENCOUNTER → 2021-03-10 09:35 | Outpatient (CLI) | payer MEDICARE, SELFPAY ==
[2021-02-08 08:59] VITALS: BMI 37.4
[2021-03-12 14:08] LABS: Albumin 3.8 g/dL (2.9-4.4); Alpha-1-Globulins 0.3 g/dL (0.0-0.4); Alpha-2-Globulins 0.8 g/dL (0.4-1.0); Gamma Globulin 0.9 g/dL (0.4-1.8); Immunoglobulin A 175 mg/dL (64-422); Immunoglobulin G 830 mg/dL (586-1602); Immunoglobulin M 261 mg/dL (26-217); PROEL- TOTAL PROTEIN 6.9 g/dL (6.0-8.5)
== END ==
PROVIDERS: PCP Family Medicine; Visit Provider Nurse Practitioner Family
DX: G62.9 Polyneuropathy, unspecified (principal)
CPT/HCPCS: 36415; 82784; 84165; 86334; 86335

== ENCOUNTER 2021-06-30 12:26 | Inpatient (IN) | payer MEDICARE, SELFPAY ==
[2021-06-30] VITALS (13 sets, daily range): BP systolic 138–168; BP diastolic 59–104; PULSE 81–108; RESP 18–31; TEMP 36.5–37.6; O2SAT 84–97; BMI 34.0; BMI 34.6
--- NOTE | 2021-06-30 13:01 | CT_ITS ---
STUDY: CTA CHEST REASON FOR EXAM: Female, 76 years old. Pulmonary embolism. Shortness of breath. Covid positive. RADIATION DOSAGE (If Supplied By Facility): CTDIvol = ( 14.92 ) mGy, DLP = ( 416.37 ) mGycm TECHNIQUE: The examination was performed with the intravenous administration of IV 100mL Isovue-370. Post-processing of the angiographic images was performed, with multiplanar reformation and 3D reconstruction. Individualized dose optimization techniques were used for this CT. COMPARISON: Comparison is made with prior chest radiograph done earlier in the day. FINDINGS: There is a 1 cm x 1.2 cm hypodense nodule in the left lobe of the thyroid. Small benign-appearing bilateral axillary lymph nodes. There is a 2.4 cm x 2.3 cm partially calcified and soft tissue mass in the inferior lateral aspect of the right breast. Normal enhancement of the main pulmonary artery and right and left pulmonary arteries. Normal enhancement of the bilateral peripheral pulmonary arteries. There is no demonstrated pulmonary embolism. Normal thoracic aorta and visualized great vessels. There is no demonstrated aortic dissection. There are calcifications of the coronary arteries. There are visualized mediastinal lymph nodes, which are within normal size limits, and with normal morphology. Normal hilar regions. Normal visualized trachea and bronchi. The lungs are well expanded. There or multiple foci of airspace disease involving both upper and lower lobes worse in the lower lobes with a preferential peripheral distribution . This is suggestive of a Covid pneumonitis. Normal pleura. Normal chest wall structures. There are degenerative changes of thoracic spine. Normal visualized upper abdomen. CT/CTA Chest W/WO Contrast IMPRESSION: Multiple bilateral focal areas of airspace disease and a preferential peripheral distribution suggestive of Covid pneumonitis. No evidence of pulmonary embolism. Electronically Signed: Saad Vaca MD at 14:46 EDT , Service support ,
--- NOTE | 2021-06-30 13:01 | EKG12_ITS ---
Test Reason : SOB Blood Pressure : / mmHG Vent. Rate : 091 BPM Atrial Rate : 091 BPM P-R Int : 142 ms QRS Dur : 078 ms QT Int : 364 ms P-R-T Axes : 057 023 051 degrees QTc Int : 447 ms Normal sinus rhythm Normal ECG Confirmed by DELONTE CHASE, SANDRA ([id number]), makeup editor ZIYAD CASAS ([id number]) on 07/05/2021 8:35:10 AM Referred By: ANT Confirmed By:SANDRA MARTEL MD
--- NOTE | 2021-06-30 13:02 | EX.ED.DYSGE1 ---
HPI History of Present Illness Chief Complaint: Shortness of Breath Informant: patient Narrative Narrative: 76-year-old female presents the emergency department with shortness of breath and COVID-19. Patient states that she received her vaccinations in January. She recently traveled to [place] and when she returned home 2 weeks ago she developed a cough. She was seen at urgent care and tested positive for coronavirus. She states that the past 2 weeks she has had continued symptoms of cough shortness of breath loose stools headaches body aches. She states that her breathing has progressively worsened. She has no known lung conditions. She does note a history of hypertension and hyperlipidemia as well as peripheral vascular disease. [facility] Medical History (Updated 06/30/21 @ 14:[address] Aashish Alonzo, ) Arthritis High cholesterol History of blood clots Osteoarthritis Home Medications lansoprazole 30 mg PO DAILY 09/14/14 [History Last Taken 06/29/21] potassium chloride 20 meq PO DAILY 09/14/14 [History Last Taken 06/29/21] alendronate 70 mg PO FR 12/14/16 [History Last Taken 06/25/21] pramipexole 0.5 mg PO BID 12/07/18 [History Last Taken 06/29/21] celecoxib 200 mg PO BID 07/13/20 [History Last Taken 06/29/21] aspirin 81 mg PO DAILY@0800 30 Days #30 tab 08/18/20 [Rx Last Taken 06/29/21] diltiazem HCl 180 mg capsule,extended release 24 hr 180 mg PO DAILY 02/03/21 [History Last Taken 06/29/21] duloxetine 60 mg capsule,delayed release 60 mg PO QHS #90 cap 04/21/21 [Rx Last Taken 06/29/21] hydrochlorothiazide 25 mg PO DAILY 06/30/21 [History Last Taken 06/29/21] rosuvastatin 40 mg PO QHS 06/30/21 [History Last Taken 06/29/21] Allergy/AdvReac Type Severity Reaction Status Date / Time meperidine HCl [From Demerol] Allergy Severe Swelling Verified 06/30/21 12:31 poison adelaide extract Allergy Rash Verified 06/30/21 12:31 [Poison Adelaide Extract] atorvastatin calcium AdvReac Upset Verified 06/30/21 12:31 [From Lipitor] Stomach cefaclor [From Ceclor] AdvReac PALPITATIONS, Verified 06/30/21 12:31 CHEST PRESSURE, SHORT OF BREATH doxycycline AdvReac Upset Verified 06/30/21 12:31 Stomach hydrocodone AdvReac Upset Verified 06/30/21 12:31 Stomach Family History Mother Arthritis CVA (cerebral vascular accident) Father Myocardial infarction Heart disease Hypertension High cholesterol Surgical History History of glufj-smgvc-edgagay bypass History of carotid endarterectomy History of cataract surgery History of extraction of renal calculus History of hip replacement History of knee replacement History of renal stent History of toe surgery Social History Smoking Status: Former smoker Tobacco: How many years used: 40 Electronic Cigarette Use: not used how long ago did patient quit smokin years ago second hand exposure: No alcohol intake: current alcohol intake frequency: holidays/special occasions only substance use type: does not use ROS ROS ED Constitutional Constitutional ED: Denies chills or weight loss Eyes Eyes: Denies change in vision or diplopia ENT ENT ED: Reports rhinorrhea; Denies ear pain or sore throat Cardiovascular Cardiovascular: Denies chest pain, orthopnea, palpitations or racing heartbeat Respiratory/Chest Respiratory/Chest: Reports cough, dyspnea and dyspnea on exertion; Denies orthopnea Gastrointestinal Gastrointestinal: Reports diarrhea; Denies abdominal pain, nausea or vomiting Genitourinary Genitourinary ED: Denies dysuria, hematuria or urinary frequency Musculoskeletal Musculoskeletal: Reports myalgias; Denies arthralgias Integumentary Denies abscess or rash Neurologic Neurologic: Reports headache(s); Denies weakness Psychiatric Psychiatric: Denies anxiety, depression, suicidal ideation or suicidal thoughts Endocrine Endocrinology: Denies polydipsia, polyphagia or polyuria Allergic/Immunologic Allergic/Immunologic ED: Denies mouth swelling, tongue swelling or urticaria EXAM Physical Exam Narrative Exam Narrative: With the patient changing her close in the bed she desaturates into the 70s on room air. Const Vital Signs: 06/30/21 12:27 06/30/21 12:53 08/18/21 12:54 Temperature 97.8 F 97.8 F Temperature Source Temporal Temporal Pulse Rate 108 H 98 Respiratory Rate 22 H 18 Respiratory Effort Short of Breath Respiratory Depth Deep Respiratory Pattern Normal Blood Pressure 164/104 H 146/64 H Blood Pressure Mean 124 91 Pulse Ox 84 93 Oxygen Delivery Method Room Air Nasal Cannula Nasal Cannula Oxygen Flow Rate (L/min) 4 4 06/30/21 13:29 06/30/21 13:30 06/30/21 14:09 Temperature 97.8 F 97.8 F Temperature Source Temporal Temporal Pulse Rate 92 92 89 Respiratory Rate 25 H 25 H 22 H Respiratory Effort Respiratory Depth Respiratory Pattern Blood Pressure 138/60 H 138/60 H 139/59 H Blood Pressure Mean 86 86 85 Pulse Ox 93 93 96 Oxygen Delivery Method Nasal Cannula Nasal Cannula Nasal Cannula Oxygen Flow Rate (L/min) 4 4 4 Positive well nourished and well developed General Appearance ED: well developed HEENT Reports normocephalic, head/scalp atraumatic and moist mucous membranes Eyes PERRL and EOMs intact bilaterally Neck no lymphadenopathy, supple and no JVD Resp normal respiratory effort and clear to auscultation bilaterally Cardio regular rate, regular rhythm and no murmurs GI normal to inspection, nondistended, normoactive bowel sounds and non-tender Palpation: soft Back/Spine no CVA tenderness and normal ROM Extremity normal to inspection General Extremety ED: Negative for edema General Extremity: Negative for edema Neuro oriented x3 and CN's II-XII intact bilaterally Sensorium / Orientation: alert Motor Exam: strength 5/5 throughout Psych mental status grossly normal Mood & Affect: Negative for depressed or tearful Skin no rashes or lesions noted and no wounds MDM MDM MDM Narrative Medical decision making narrative: Patient is requiring 4 L nasal cannula to keep her sats greater than 92. CTA of the chest does not demonstrate any pulmonary embolism. Multiple areas of pneumonitis noted. Potassium low at 3.1. She received 40 mEq p.o. I was able to obtain a copy of her positive Covid test which is placed on the chart. Patient received Decadron. Plan will be admission into the hospital Lab Data Attestation: I reviewed the patient's lab results. Labs: Laboratory Results - last 24 hr 06/30/21 06/30/21 13:24 13:24 WBC 6.8 RBC 4.57 Hgb 13.8 Hct 41.6 MCV 91.0 MCH 30.2 MCHC 33.2 RDW Std Deviation 44.4 H RDW Coeff of Davidson 13.2 Plt Count 197 MPV 9.9 Immature Gran % (Auto) 0.600 Neut % (Auto) 73.7 H Lymph % (Auto) 15.8 L [place] % (Auto) 9.1 Eos % (Auto) 0.7 Baso % (Auto) 0.1 Absolute Neuts (auto) 5.0 Absolute Lymphs (auto) 1.08 Nucleated RBC % 0 Sodium 140 Potassium 3.1 L Chloride 101 Carbon Dioxide 31.0 Anion Gap 8 BUN 15 Creatinine 0.72 Estim Creat Clear Calc 55.91 Est GFR (MDRD) Af Amer 102 Est GFR (MDRD) Non-Af 84 BUN/Creatinine Ratio 20.9 H Glucose 110 H Calcium 9.0 Total Bilirubin 0.70 AST 70 H ALT 37 Alkaline Phosphatase 88 Troponin I High Sens 8 Total Protein 7.2 Albumin 2.5 L Globulin 4.7 H Albumin/Globulin Ratio 0.5 L Radiography Diagnostic Testing: Radiology Impression Chest CTA 06/30/21 13:01 IMPRESSION: Multiple bilateral focal areas of airspace disease and a preferential peripheral distribution suggestive of Covid pneumonitis. No evidence of pulmonary embolism. Electronically Signed: Saad Vaca MD at 14:46 EDT , Service support , Discharge Plan Dx/Rx/DC Orders Clinical Impression: COVID-19, Acute hypoxemic respiratory failure due to COVID-19, Acute hypokalemia Disposition Disposition: Acute Care [facility]
[2021-06-30 13:47] LABS: Absolute Lymphocyte Count 1.08 X10^3/uL (0.83-4.51); Basophil# 0.01 X10^3/uL; Basophil% 0.1 % (0-1); Eosinophil# 0.05 X10^3/uL; Eosinophils% 0.7 % (0-5); Hematocrit 41.6 % (37-47); Hemoglobin 13.8 g/dL (12.0-15.0); Lymphocyte # 1.08 X10^3/ul (0.83-4.51); Lymphocyte % 15.8 % (19-41); Mean Corp Hgb Conc 33.2 g/dL (32-36); Mean Corpuscular Hgb 30.2 pg (27.0-32.0); Mean Platelet Vol. 9.9 fl (6.2-12.0); Monocyte# 0.62 X10^3/uL; Monocyte% 9.1 % (0-10); NRBC Flagged by Analyzer 0 % (0-5); Neutrophil # 5.03 X10^3/uL (2.7-7.7); Neutrophil % 73.7 % (47-70); Platelet Count 197 K/mm3 (150-450); RBC Distribution Width CV 13.2 % (11.6-14.6); RBC Distribution Width SD 44.4 fl (35.1-43.9); Red Blood Count 4.57 M/mm3 (4.2-5.4); White Blood Count 6.8 K/mm3 (4.4-11.0)
[2021-06-30 14:06] LABS: ALB/GLOB Ratio 0.5 RATIO (0.9-2.4); AST(SGOT) 70 U/L (15-37); Alanine Aminotransfer ALT/SGPT 37 U/L (13-56); Albumin, Serum 2.5 g/dL (3.2-5.0); Alkaline Phosphatase 88 U/L (45-117); Anion Gap 8 (5-15); BUN 15 mg/dL (7-18); BUN/Creat Ratio 20.9 RATIO (10-20); Chloride 101 mmol/L (98-107); Creatinine, Serum 0.72 mg/dL (0.55-1.02); EST Glomerular Filtration Rate 84 mL/min (>60); Est Glom Filt Rate - Afr Amer 102 mL/min (>60); Estimated Creatinine Clearance 55.91 ml/min; Globulin 4.7 g/dL (2.2-4.2); Glucose 110 mg/dL (74-106); Potassium 3.1 mmol/L (3.5-5.1); Protein, Total 7.2 g/dL (6.4-8.2); Sodium Level 140 mmol/L (136-145); Troponin-I HS 8 pg/mL (3.0-54.0)
[2021-06-30] MEDS: Potassium Chloride Oral Tablet 20 MEQ 40 MEQ PO (14:47)
--- NOTE | 2021-06-30 15:31 | HP.PCM.HOS_ITS ---
HPI - General General Date of Admission: 06/30/21 Date of Service: 06/30/21 Chief Complaint: Cough, shortness of breath, generalized weakness -2 weeks HPI Narrative TREY CALVERT, is a 76 F who presents the above ongoing for 2 weeks. Patient stated that she was vaccinated and was recently vacationing in [place]. She was not wearing a mask. Her and her daughter also positive for Covid. Her got sick but he is better. She persistently felt unwell. She denied any fevers. She denied any sense of loss of smell of taste. Her vitals in the ED were stable except for patient being on [address] of the chest was suggestive of Covid pneumonitis. Her CBCD was unremarkable. CMP was positive for hypokalemia 3.1 [facility] Medical History Arthritis Former smoker GERD (gastroesophageal reflux disease) High cholesterol History of blood clots Osteoarthritis Home Medications lansoprazole 30 mg PO DAILY 09/14/14 [History Last Taken 06/29/21] potassium chloride 20 meq PO DAILY 09/14/14 [History Last Taken 06/29/21] alendronate 70 mg PO FR 12/14/16 [History Last Taken 06/25/21] pramipexole 0.5 mg PO BID 12/07/18 [History Last Taken 06/29/21] celecoxib 200 mg PO BID 07/13/20 [History Last Taken 06/29/21] aspirin 81 mg PO DAILY@0800 30 Days #30 tab 08/18/20 [Rx Last Taken 06/29/21] diltiazem HCl 180 mg capsule,extended release 24 hr 180 mg PO DAILY 02/03/21 [History Last Taken 06/29/21] duloxetine 60 mg capsule,delayed release 60 mg PO QHS #90 cap 04/21/21 [Rx Last Taken 06/29/21] hydrochlorothiazide 25 mg PO DAILY 06/30/21 [History Last Taken 06/29/21] rosuvastatin 40 mg PO QHS 06/30/21 [History Last Taken 06/29/21] Allergy/AdvReac Type Severity Reaction Status Date / Time meperidine HCl [From Demerol] Allergy Severe Swelling Verified 06/30/21 12:31 poison adelaide extract Allergy Rash Verified 06/30/21 12:31 [Poison Adelaide Extract] atorvastatin calcium AdvReac Upset Verified 06/30/21 12:31 [From Lipitor] Stomach cefaclor [From Ceclor] AdvReac PALPITATIONS, Verified 06/30/21 12:31 CHEST PRESSURE, SHORT OF BREATH doxycycline AdvReac Upset Verified 06/30/21 12:31 Stomach hydrocodone AdvReac Upset Verified 06/30/21 12:31 Stomach Family History Mother Arthritis CVA (cerebral vascular accident) Father Myocardial infarction Heart disease Hypertension High cholesterol Surgical History History of imzjp-emhjb-spagvfw bypass History of carotid endarterectomy History of cataract surgery History of extraction of renal calculus History of hip replacement History of knee replacement History of renal stent History of toe surgery Social History Smoking Status: Former smoker Tobacco: How many years used: 40 Electronic Cigarette Use: not used how long ago did patient quit smokin years ago second hand exposure: No alcohol intake: current alcohol intake frequency: holidays/special occasions only substance use type: does not use ROS ROS Narrative Constitutional: Reports: Malaise, Weakness, Fatigue. Denies: Anorexia, Chills, Fever, Night Sweats, Weight Change Eyes: Denies: Blurred vision, Cataracts, Conjunctivae Inflammation, Pain, Redness, Vision Change HEENT: Denies: Difficulty Hearing, Difficulty Swallowing, Head Aches, Hearing Changes, Sinus Congestion, Sinus Drainage Cardiovascular: Denies: Chest Pain, Orthopnea, Palpitations Respiratory: Admits to: cough, Shortness of breath at rest, Denies: Sputum production Gastrointestinal: Denies: Abdominal Pain, Nausea, Vomiting Genitourinary: Denies: Dysuria Musculoskeletal: Denies: Joint Pain, Joint stiffness, Joint swelling, Joint Tenderness Skin: Denies: Rash, Wounds Neurological: Denies: Numbness, Tingling, Focal weakness Vital Signs Vital Signs Vital Signs: 06/30/21 12:27 06/30/21 12:53 06/30/21 12:54 Temperature 97.8 F 97.8 F Temperature Source Temporal Temporal Pulse Rate 108 H 98 Respiratory Rate 22 H 18 Respiratory Effort Short of Breath Respiratory Depth Deep Respiratory Pattern Normal Blood Pressure 164/104 H 146/64 H Blood Pressure Mean 124 91 Pulse Ox 84 93 Oxygen Delivery Method Room Air Nasal Cannula Nasal Cannula Oxygen Flow Rate (L/min) 4 4 06/30/21 13:29 06/30/21 13:30 06/30/21 14:09 Temperature 97.8 F 97.8 F Temperature Source Temporal Temporal Pulse Rate 92 92 89 Respiratory Rate 25 H 25 H 22 H Respiratory Effort Respiratory Depth Respiratory Pattern Blood Pressure 138/60 H 138/60 H 139/59 H Blood Pressure Mean 86 86 85 Pulse Ox 93 93 96 Oxygen Delivery Method Nasal Cannula Nasal Cannula Nasal Cannula Oxygen Flow Rate (L/min) 4 4 4 Weight Weight: 74 kg Body Mass Index (BMI) 34.0 Physical Exam Narrative Physical exam: General: Alert, Oriented x3, Cooperative, No apparent distress, Well developed HEENT: Atraumatic Oral: Moist Mucosa Neck: Supple Lungs: Clear to auscultation Cardiovascular: HS I+II, regular, no murmurs Abdomen: Bowel Sounds Present, Soft, Non Tender Extremities: No edema Skin: No rashes, No breakdown Neurological: Grossly intact Psych/Mental Status: Appropriate Results Lab / Micro Data Result Diagrams: 06/30/21 13:24 06/30/21 13:24 Labs: Laboratory Results - last 24 hr 06/30/21 13:24: WBC 6.8, RBC 4.57, Hgb 13.8, Hct 41.6, MCV 91.0, MCH 30.2, MCHC 33.2, RDW Std Deviation 44.4 H, RDW Coeff of Davidson 13.2, Plt Count 197, MPV 9.9, Immature Gran % (Auto) 0.600, Neut % (Auto) 73.7 H, Lymph % (Auto) 15.8 L, [place] % (Auto) 9.1, Eos % (Auto) 0.7, Baso % (Auto) 0.1, Absolute Neuts (auto) 5.0, Absolute Lymphs (auto) 1.08, Nucleated RBC % 0 06/30/21 13:24: Sodium 140, Potassium 3.1 L, Chloride 101, Carbon Dioxide 31.0, Anion Gap 8, BUN 15, Creatinine 0.72, Estim Creat Clear Calc 55.91, Est GFR (MDRD) Af Amer 102, Est GFR (MDRD) Non-Af 84, BUN/Creatinine Ratio 20.9 H, Glucose 110 H, Calcium 9.0, Total Bilirubin 0.70, AST 70 H, ALT 37, Alkaline Phosphatase 88, Troponin I High Sens 8, Total Protein 7.2, Albumin 2.5 L, Globulin 4.7 H, Albumin/Globulin Ratio 0.5 L Radiology Impression Chest CTA 06/30/21 13:01 IMPRESSION: Multiple bilateral focal areas of airspace disease and a preferential peripheral distribution suggestive of Covid pneumonitis. No evidence of pulmonary embolism. Electronically Signed: Saad Vaca MD at 14:46 EDT , Service support , Assessment & Plan Assessment/Plan (1) Acute hypokalemia: (2) Hypoxia: PLAN: 1. Acute Covid 19 pneumonia with hypoxia Patient is on 4 L of oxygen Patient had been vaccinated in December Symptoms have been ongoing for about 2 weeks Continue with breathing treatments, po steroids, encourage use of incentive spirometer. Wean off oxygen for SPO2 more than 94% 2. Hypokalemia, potassium was 3.1, replaced, check magnesium level 3. Rest of her chronic medical conditions including hypertension, hyperlipidemia, GERD remained stable Home meds reviewed I discussed and explained in details the various types of CODE STATUS-full code, DNR CCA, DNR CC. Patient chose full code Time spent discussing CODE STATUS 16 minutes Charges/Coding Visit Charges Inpatient E&M: 06051 Init Hosp L3 Procedures Hospitalists Procedures: 37239 Advncd Care Plan 30 Min
[2021-06-30 16:35] LABS: Lactic Acid 1.4 mmol/L (0.4-1.9)
[2021-06-30 16:39] LABS: BNP,B-Type NATRIURETIC PEPTIDE 18.1 pg/mL (0-100)
--- NOTE | 2021-06-30 17:13 | PCS.PANDOC ---
PANDEMIC DOCUMENTATION INITIATED: Date: 06/28/2021 Time: 190
[2021-06-30] MEDS: DULoxetine Hcl 60 MG Capsule PO (22:28)
[2021-06-30] MEDS: Pramipexole Di-HCl 0.5 MG Tablet PO (22:28)
[2021-06-30] MEDS: Atorvastatin Calcium 80 MG Tablet PO (22:28)
[2021-06-30] MEDS: Enoxaparin 30 MG/0.3 ML Syringe SC (22:29)
[2021-06-30] MEDS: Furosemide 20 MG/2 ML VIAL IV (22:45)
[2021-07-01] VITALS (8 sets, daily range): BP systolic 137–152; BP diastolic 72–83; PULSE 72–89; RESP 18; TEMP 36.9–37.3; O2SAT 84–93
[2021-07-01 06:44] LABS: Absolute Lymphocyte Count 1.23 X10^3/uL (0.83-4.51); Absolute Neutrophil Count 5.6 X10^3/uL (2.0-7.7); Basophil# 0.02 X10^3/uL; Basophil% 0.3 % (0-1); Eosinophils% 1.3 % (0-5); Hematocrit 43.4 % (37-47); Hemoglobin 14.4 g/dL (12.0-15.0); Lymphocyte # 1.23 X10^3/ul (0.83-4.51); Lymphocyte % 16.1 % (19-41); Mean Corp Hgb Conc 33.2 g/dL (32-36); Mean Corpuscular Hgb 30.6 pg (27.0-32.0); Mean Corpuscular Volume 92.1 fL (81-99); Mean Platelet Vol. 9.9 fl (6.2-12.0); Monocyte# 0.66 X10^3/uL; Monocyte% 8.6 % (0-10); NRBC Flagged by Analyzer 0 % (0-5); Neutrophil % 73.3 % (47-70); Platelet Count 196 K/mm3 (150-450); RBC Distribution Width CV 13.2 % (11.6-14.6); RBC Distribution Width SD 44.6 fl (35.1-43.9); Red Blood Count 4.71 M/mm3 (4.2-5.4); White Blood Count 7.6 K/mm3 (4.4-11.0)
[2021-07-01 07:12] LABS: ALB/GLOB Ratio 0.5 RATIO (0.9-2.4); AST(SGOT) 69 U/L (15-37); Alanine Aminotransfer ALT/SGPT 42 U/L (13-56); Albumin, Serum 2.6 g/dL (3.2-5.0); Alkaline Phosphatase 92 U/L (45-117); Anion Gap 8 (5-15); BUN 18 mg/dL (7-18); BUN/Creat Ratio 21.4 RATIO (10-20); Calcium,Total 9.3 mg/dL (8.5-10.1); Chloride 99 mmol/L (98-107); Creatinine, Serum 0.84 mg/dL (0.55-1.02); EST Glomerular Filtration Rate 70 mL/min (>60); Est Glom Filt Rate - Afr Amer 84 mL/min (>60); Estimated Creatinine Clearance 67.01 ml/min; Glucose 110 mg/dL (74-106); Potassium 3.2 mmol/L (3.5-5.1); Protein, Total 7.6 g/dL (6.4-8.2); Sodium Level 136 mmol/L (136-145)
[2021-07-01] MEDS: Potassium Chloride Oral Tablet 20 MEQ 60 MEQ PO (08:48)
[2021-07-01] MEDS: Enoxaparin 30 MG/0.3 ML Syringe SC (08:48)
[2021-07-01] MEDS: Pramipexole Di-HCl 0.5 MG Tablet PO (08:49)
[2021-07-01] MEDS: Aspirin E.C. 81 MG Tablet PO (08:49)
[2021-07-01] MEDS: Pantoprazole Sodium 40 MG Tablet PO (08:49)
[2021-07-01] MEDS: hydroCHLOROthiazide 25 MG Tablet PO (08:49)
[2021-07-01] MEDS: dexAMETHasone 4 MG Tablet 6 MG PO (08:49)
[2021-07-01] MEDS: dilTIAZem CD 180 MG Capsule PO (08:50)
--- NOTE | 2021-07-01 12:47 | CHAPLAIN ---
Type of Pastoral Visit ___ Initial Visit ___ Follow-up Visit ___ On-call Visit ___ General Patient Visit ___ Spiritual Assessment ___ Family Conference ___ Bereavement ___ Rapid Response ___ Code Blue ___ Other (describe below) Pastoral Care Referral From ___ Patient ___ Family ___ Nurse ___ Physician ___ Maritime Officer ___ Senior Staff Accountant ___ Other (describe below) Sacrament/Intervention ___ Active listening ___ Anointing ___ Yazdanism ___ Bereavement ___ Communion ___ Mishel exploration ___ ___ Life review ___ Prayer ___ Reconciliation ___ Sacrament of Sick ___ Supportive presence ___ Wedding ___ Other (describe below) Pastoral Comments attempted phone call into isolation room; no answer
--- NOTE | 2021-07-01 15:26 | CASEMGMT ---
OSMEL ANGEL Assessment: Face to Face with patient for initial transition planning/care coordination assessment. RN JEANNE introduced self and role at [facility], pt voices understanding and consents to assessment. Pt is sitting up in bed in no distress on 2L. Pt is A/Ox4 and answers all questions appropriately. Care providers, pharmacy, and demographics verified. Presentation: Pt states COVID +, tired, SOB-84% on room air Admitting dx: Hypoxia, COVID 19 pneumonitis PCP: Katerina Specialists: Rufina; juan ramon Ragland Preferred Pharmacy: [facility] Insurance: [employer] Prescription Benefit: [employer] Living Will/HPOA: Pt has LW/HPOA and is aware that it's on file at [facility]. Pt states her , Burton Hurst, is HPOA. LNOK: Burton Hurst, Living Arrangements: Pt lives with in 1 story home with 3 steps in and states no concerns at home. Pt states is independent with ADL's. Transportation: Pt states drives self and states no transportation concerns. DME/HHC: Pt states has a cane, walker, extended tub bench at home and does qualify for home oxygen 2L w/ exertion. Referral faxed to [facility] and Leonela at [facility] updated on referral/pt discharge today, voices understanding. Pt states no preference on DME company once verbal list provided. Pt has been to [facility] rehab in the past but has not had HHC. Pt states no concerns with going home at time of discharge. Pt is retired. Pt states does not smoke cigarettes or drink ETOH. Pt states no further concerns/needs. CM to follow for any further discharge planning/needs. Advised pt to ask for CM if any further questions/concerns/needs arise, voices understanding. Pt Goal: Home Plan: Home w/ home oxygen [place] OSMEL ANGEL
--- NOTE | 2021-07-01 15:37 | DS.PCM_ITS ---
Providers Date of Admission: 06/30/21 Date of Discharge: 07/01/21 Primary Care Physician: Dr. Marcelo Borges MD Reason For Visit: HYPOXIA/COVID-19 PNEUMONITIS Diagnosis Discharge Diagnosis (1) Acute hypokalemia: Status: Acute Code(s): E87.6 - Hypokalemia (2) COVID-19: Status: Acute Code(s): U07.1 - COVID-19 (3) Acute respiratory failure: Status: Acute Code(s): J96.00 - Acute respiratory failure, unspecified whether with hypoxia or hypercapnia Medications at Discharge Home Medications lansoprazole 30 mg PO DAILY 09/14/14 alendronate 70 mg PO FR 12/14/16 pramipexole 0.5 mg PO BID 12/07/18 aspirin 81 mg PO DAILY@0800 30 Days #30 tab 08/18/20 diltiazem HCl 180 mg capsule,extended release 24 hr 180 mg PO DAILY 02/03/21 duloxetine 60 mg capsule,delayed release 60 mg PO QHS #90 cap 04/21/21 hydrochlorothiazide 25 mg PO DAILY 06/30/21 rosuvastatin 40 mg PO QHS 06/30/21 albuterol sulfate 2.5 mg INHALATION Q4H PRN 14 Days #1 ml 07/01/21 aspirin 81 mg PO DAILY 30 Days #30 cap 07/01/21 dexamethasone 6 mg PO DAILY 8 Days #12 tab 07/01/21 potassium chloride 40 meq PO DAILY #0 tab 07/01/21 Hospital Course Operations None Procedures None Summary of Care Provided Minutes Spent on Discharge: 45 Hospital Course: 76 F who presents the above ongoing for 2 weeks. Patient stated that she was vaccinated and was recently vacationing in [place]. She was not wearing a mask. Her and her daughter also positive for Covid. Her got sick but he is better. She persistently felt unwell. She denied any fevers. She denied any sense of loss of smell of taste. Her vitals in the ED were stable except for patient being on [address] of the chest was suggestive of Covid pneumonitis. Her CBCD was unremarkable. CMP was positive for hypokalemia 3.1 Patient was admitted to the PCU, she was maintained on Decadron, breathing treatments, her potassium was replaced. Patient continued to do well. Her oxygen requirements came down to 2 L. She denied any new complaints. She felt improved. She was discharged to complete 10 days of Decadron. She was asked to complete 20 days of quarantine. She will follow up with her primary care doctor after her quarantine to evaluate for continued oxygen use. Patient was discharged earlier than anticipated. She was discharged on 2 L of oxygen. She was evaluated and qualified for home oxygen. Physical Exam Narrative Physical exam: General: Alert, Oriented x3, Cooperative, No apparent distress, Well developed HEENT: Atraumatic Oral: Moist Mucosa Neck: Supple Lungs: Clear to auscultation Cardiovascular: HS I+II, regular, no murmurs Abdomen: Bowel Sounds Present, Soft, Non Tender Extremities: No edema Skin: No rashes, No breakdown Neurological: Grossly intact Psych/Mental Status: Appropriate Weight / BMI Weight Weight: 74.5 kg Body Mass Index (BMI) 34.6 ABG / Lab / Microbiology Data Result Diagrams: 07/01/21 06:35 07/01/21 06:35 Laboratory: Laboratory Results - last 24 hr 06/30/21 13:24: Lactic Acid 1.4 06/30/21 13:24: B-Natriuretic Peptide 18.1 06/30/21 13:24: Magnesium 2.0 07/01/21 06:35: WBC 7.6, RBC 4.71, Hgb 14.4, Hct 43.4, MCV 92.1, MCH 30.6, MCHC 33.2, RDW Std Deviation 44.6 H, RDW Coeff of Davidson 13.2, Plt Count 196, MPV 9.9, Immature Gran % (Auto) 0.400, Neut % (Auto) 73.3 H, Lymph % (Auto) 16.1 L, [place] % (Auto) 8.6, Eos % (Auto) 1.3, Baso % (Auto) 0.3, Absolute Neuts (auto) 5.6, Absolute Lymphs (auto) 1.23, Nucleated RBC % 0 07/01/21 06:35: Sodium 136, Potassium 3.2 L, Chloride 99, Carbon Dioxide 29.0, Anion Gap 8, BUN 18, Creatinine 0.84, Estim Creat Clear Calc 67.01, Est GFR (MDRD) Af Amer 84, Est GFR (MDRD) Non-Af 70, BUN/Creatinine Ratio 21.4 H, Gluco se 110 H, Calcium 9.3, Total Bilirubin 1.00, AST 69 H, ALT 42, Alkaline Phosphatase 92, Total Protein 7.6, Albumin 2.6 L, Globulin 5.0 H, Albumin/Globulin Ratio 0.5 L D/C Instructions Discharge Diet: Low fat / Low cholesterol and 2000 mg Sodium Diet Meaningful Use Info Meaningful Use Diagnoses (Choose all that apply): None applicable Discharge Plan Admission Admit Date/Time: 06/30/21 15:30 Primary Reason for Your Visit: Acute COVID-19 pneumonia Attending Provider: Niecy Araiza Primary Care Provider: Marcelo Borges Instructions Additional Instructions / Restrictions: You are being discharged with oxygen. Continue to use your oxygen all the time. Continue to use your incentive spirometer. Continue to remain active and eat healthy. Let your doctor know if you develop fever >101.3F or have progressive worsening shortness of breath. Follow-up with your primary care doctor and also with pulmonology to have your continued oxygen use reevaluated. Be careful of going near open flames whilst on oxygen. Complete your Decadron as prescribed. Continue to use your inhaler as needed for shortness of breath. Continue to quarantine for 20 [address] the [address] art of your symptoms. Discharge Orders/Prescriptions Prescriptions: New albuterol sulfate 2.5 mg /3 mL (0.083 %) Solution For Nebulization 2.5 mg inhalation Q4H PRN (Reason: SOB &/OR WHEEZING) 14 Days Qty: 1 RF: 0 dexamethasone 4 mg Tablet 6 mg PO DAILY 8 Days Qty: 12 RF: 0 aspirin 81 mg capsule 81 mg PO DAILY 30 Days Qty: 30 RF: 0 Continued diltiazem HCl [Cartia XT] 180 mg capsule,extended release 24hr 180 mg PO DAILY RF: 0 duloxetine 60 mg capsule,delayed release(DR/EC) 60 mg PO QHS Qty: 90 RF: 1 lansoprazole 30 MG capsule 30 mg PO DAILY RF: 0 alendronate 70 MG tablet 70 mg PO FR RF: 0 pramipexole 0.5 MG tablet 0.5 mg PO BID RF: 0 aspirin 81 MG tablet 81 mg PO DAILY@0800 30 Days Qty: 30 RF: 0 hydrochlorothiazide 25 mg tablet 25 mg PO DAILY RF: 0 rosuvastatin 40 mg tablet 40 mg PO QHS RF: 0 Changed potassium chloride 20 MEQ tablet 40 meq PO DAILY Qty: 0 RF: 0 Discontinued celecoxib 200 MG capsule 200 mg PO BID RF: 0 Referrals / Follow Up: Marcelo Borges MD [Primary Care Provider] - Within 2 Weeks Disposition Disposition (needs filled in before D/C Order can be placed): Home, Self Care Charges/Coding Visit Charges Inpatient E&M: 19132 Disch Hosp
--- NOTE | 2021-07-01 15:44 | PHA.DC.MR ---
Pharmacy Service has performed discharge medication reconciliation for this patient. patient in COVID precautions, did not enter room to preserve PPE. Home Medications lansoprazole 30 mg PO DAILY 09/14/14 alendronate 70 mg PO FR 12/14/16 pramipexole 0.5 mg PO BID 12/07/18 aspirin 81 mg PO DAILY@0800 30 Days #30 tab 08/18/20 diltiazem HCl 180 mg capsule,extended release 24 hr 180 mg PO DAILY 02/03/21 duloxetine 60 mg capsule,delayed release 60 mg PO QHS #90 cap 04/21/21 hydrochlorothiazide 25 mg PO DAILY 06/30/21 rosuvastatin 40 mg PO QHS 06/30/21 albuterol sulfate 2.5 mg INHALATION Q4H PRN 14 Days #1 ml 07/01/21 aspirin 81 mg PO DAILY 30 Days #30 cap 07/01/21 dexamethasone 6 mg PO DAILY 8 Days #12 tab 07/01/21 potassium chloride 40 meq PO DAILY #0 tab 07/01/21 The patient's discharge medication list was reviewed for discrepancies and discrepancies were resolved.
--- NOTE | 2021-07-02 14:32 | CASEMGMT ---
OSMEL ANGEL Discharge Follow-up Phone Call: NELDinesh: Myra Strata: 2 Call Date: 07/02/21 Discharge Date: 07/01/21 Time of Call: 1430 Duration: 3 min Admitting Diagnosis: Covid OSMEL ANGEL completed follow-up phone call after recent hospitalization. Patient states she is doing well. Patient states she has no questions regarding discharge instructions. Patient was able to fill prescriptions without any issues. Patient states her oxygen was delivered without any difficulty. Patient had no further questions or concerns at this time.
== END 2021-07-01 18:02 | disposition home or self-care (01) | DRG 177 ==
LOC: ED 15:45 → PCU 16:22
PROVIDERS: Admitting Provider Internal Medicine; Emergency Provider Emergency Medicine; PCP Family Medicine; Visit Provider Internal Medicine
DX: U07.1 COVID-19 (principal); J12.82 Pneumonia due to coronavirus disease 2019; J96.01 Acute respiratory failure with hypoxia; E87.6 Hypokalemia; I10 Essential (primary) hypertension; E78.00 Pure hypercholesterolemia, unspecified; E78.5 Hyperlipidemia, unspecified; I73.9 Peripheral vascular disease, unspecified; K21.9 Gastro-esophageal reflux disease without esophagitis; M19.90 Unspecified osteoarthritis, unspecified site; Z86.718 Personal history of other venous thrombosis and embolism; Z87.442 Personal history of urinary calculi; Z79.82 Long term (current) use of aspirin; Z79.899 Other long term (current) drug therapy; Z87.891 Personal history of nicotine dependence
CPT/HCPCS: 36415; 71275; 80053; 83605; 83735; 83880; 84484; 85025; 87040; 93005; 99285; Q9967; A4216; J1940

== ENCOUNTER 2021-07-21 10:16 | Inpatient (IN) | payer MEDICARE, SELFPAY ==
[2021-07-21] VITALS (9 sets, daily range): BP systolic 116–132; BP diastolic 48–99; PULSE 68–99; RESP 16–26; TEMP 36.5–37.4; O2SAT 81–98; BMI 55.1; BMI 35.1
--- NOTE | 2021-07-21 10:32 | EKG12_ITS ---
Test Reason : SOB Blood Pressure : / mmHG Vent. Rate : 092 BPM Atrial Rate : 092 BPM P-R Int : 130 ms QRS Dur : 076 ms QT Int : 338 ms P-R-T Axes : 050 033 039 degrees QTc Int : 417 ms Normal sinus rhythm Normal ECG Confirmed by MIRZA CHASE, RERE ([id number]), acquisitions editor ZIYAD CASAS ([id number]) on 07/26/2021 12:54:44 PM Referred By: DEVIN/CARLOTA Confirmed By:RERE BLUE MD
--- NOTE | 2021-07-21 10:35 | ED.VIS.DYS ---
HPI History of Present Illness Chief Complaint: Shortness of Breath Informant: patient and spouse/S.O. Onset/Context/Timing Onset: Month(s) (Covid test + June 22 symptoms started a couple days prior) Context: sudden Timing: Continuous and Waxes and wanes Quality: Positive for Dyspnea on exertion; Negative for Orthopnea and PND Current Severity: Mild Maximum Severity: Severe Worsened by: Exertion (Patient states she gets short of breath walking from the examination room to the nurses station.) Relieved by: Nothing Associated Symptoms cough, rhinorrhea, fever, sore throat and chills; Negative for clear sputum, white sputum, yellow sputum or green sputum Chest Pain: Positive for None Narrative Narrative: Patient presents because pulse ox read 81% today. She had problems with low pulse ox over the past several days. She is Covid positive. She has no known history of asthma or lung problems. She denies history of coronary disease. She denies orthopnea or PND. She denies history of PE or DVT. She denies chest pain of any type including pleuritic. She denies leg pain, swelling discoloration. PE Risk Factors: Negative for Cancer, OCP + Smoking + > 35, Prior DVT or PE, Recent immobilization, Recent surgery and Recent travel Prior similar symptoms: Yes Recent Illness/[facility]ospital[facility]: [facility] Medical History Arthritis Former smoker GERD (gastroesophageal reflux disease) High cholesterol History of blood clots Osteoarthritis Home Medications lansoprazole 30 mg PO DAILY 09/14/14 [History Last Taken 06/29/21] alendronate 70 mg PO FR 12/14/16 [History Last Taken 06/25/21] pramipexole 0.5 mg PO BID 12/07/18 [History Last Taken 06/29/21] aspirin 81 mg PO DAILY@0800 30 Days #30 tab 08/18/20 [Rx Last Taken 06/29/21] diltiazem HCl 180 mg capsule,extended release 24 hr 180 mg PO DAILY 02/03/21 [History Last Taken 06/29/21] duloxetine 60 mg capsule,delayed release 60 mg PO QHS #90 cap 04/21/21 [Rx Last Taken 06/29/21] hydrochlorothiazide 25 mg PO DAILY 06/30/21 [History Last Taken 06/29/21] rosuvastatin 40 mg PO QHS 06/30/21 [History Last Taken 06/29/21] albuterol sulfate 2.5 mg INHALATION Q4H PRN 14 Days #1 ml 07/01/21 [Rx Last Taken Unknown] aspirin 81 mg PO DAILY 30 Days #30 cap 07/01/21 [Rx Last Taken Unknown] dexamethasone 6 mg PO DAILY 8 Days #12 tab 07/01/21 [Rx Last Taken Unknown] potassium chloride 40 meq PO DAILY #0 tab 07/01/21 [Rx Last Taken 06/29/21] Allergy/AdvReac Type Severity Reaction Status Date / Time meperidine HCl [From Demerol] Allergy Severe Swelling Verified 07/21/21 10:20 poison [place]elaide extract Allergy Rash Verified 07/21/21 10:20 [Poison [place] Extract] atorvastatin calcium AdvReac Upset Verified 07/21/21 10:20 [From Lipitor] Stomach cefaclor [From Ceclor] AdvReac PALPITATIONS, Verified 07/21/21 10:20 CHEST PRESSURE, SHORT OF BREATH doxycycline AdvReac Upset Verified 07/21/21 10:20 Stomach hydrocodone AdvReac Upset Verified 07/21/21 10:20 Stomach Family History Mother Arthritis CVA (cerebral vascular accident) Father Myocardial infarction Heart disease Hypertension High cholesterol Surgical History History of [id number]-aibldcd bypass History of carotid endarterectomy History of cataract surgery History of extraction of renal calculus History of hip replacement History of knee replacement History of renal stent History of toe surgery Social History Smoking Status: Former smoker Tobacco: How many years used: 40 Electronic Cigarette Use: not used how long ago did patient quit smokin years ago second hand exposure: No alcohol intake: current alcohol intake frequency: holidays/special occasions only substance use type: does not use ROS ROS ED Constitutional Constitutional ED: Reports fever(s) and sweats; Denies chills or weight loss Eyes Eyes: Denies blurry vision, change in vision or diplopia ENT ENT ED: Reports rhinorrhea and sore throat; Denies ear pain Cardiovascular Cardiovascular: Denies chest pain, orthopnea, palpitations, paroxysmal nocturnal dyspnea or racing heartbeat Respiratory/Chest Respiratory/Chest: Reports cough, dyspnea and dyspnea on exertion; Denies orthopnea, paroxysmal nocturnal dyspnea or sputum Gastrointestinal Gastrointestinal: Reports abdominal pain, diarrhea and nausea; Denies vomiting Genitourinary Genitourinary ED: Denies dysuria, hematuria or urinary frequency Musculoskeletal Musculoskeletal: Reports arthralgias and myalgias; Denies back pain or neck pain Integumentary Denies rash Neurologic Neurologic: Reports headache(s) and weakness; Denies paresthesias Endocrine Endocrinology: Denies polydipsia, polyphagia or polyuria Hematologic/Lymphatic Hematologic/Lymphatic: Denies easy bleeding or easy bruising EXAM Physical Exam Const Vital Signs: 07/21/21 10:17 07/21/21 10:48 07/21/21 11:41 Temperature 99.4 F H 98.2 F Temperature Source Temporal Temporal Pulse Rate 99 89 94 Respiratory Rate 18 26 H 18 Respiratory Effort Short of Breath Labored Accessory Muscle Use Respiratory Depth Normal Respiratory Pattern Tachypnea Tachypnea Blood Pressure 116/99 H 132/84 H Blood Pressure Mean 104 100 Pulse Ox 90 92 81 Oxygen Delivery Method Room Air Room Air Nasal Cannula Oxygen Flow Rate (L/min) 4 Positive well nourished, well developed and obese General Appearance ED: well developed Nutritional Appearance: obese HEENT Reports moist mucous membranes atraumatic and tenderness Eyes PERRL and EOMs intact bilaterally General Eye ED: Negative for pale conjunctiva or scleral icterus Neck no lymphadenopathy, supple, no meningeal signs and no JVD Resp normal respiratory effort and No clear to auscultation bilaterally Auscultation: rales bilateral mid and lower and diminished lung sounds Cardio regular rate, regular rhythm, S1 normal heart sound, S2 normal heart sound and no murmurs GI non-tender, non-distended and no masses Auscultation: normoactive bowel sounds Palpation: soft Back/Spine no CVA tenderness Extremity normal to inspection General Extremety ED: Negative for edema or tenderness General Extremity: Negative for edema Neuro oriented x3, CN's II-XII intact bilaterally and no sensory deficits noted Sensorium / Orientation: alert Motor Exam: strength 5/5 throughout Psych mental status grossly normal Thought Process: normal thought process Skin no wounds Lesions: no lesions Rashes: no rashes MDM MDM MDM Narrative Medical decision making narrative: Clinically patient has pneumonia concerned this is Covid pneumonia. Work-up was initiated. Will have nurse perform ambulatory pulse ox. Since patient has bilateral infiltrates and is 1 month out from diagnosis of Covid need to consider healthcare acquired pneumonia. Blood cultures not obtained since lactate is normal and there is no evidence of endorgan dysfunction. After discussion with Dr. Stephenson, the hospitalist, a CTA was ordered. She asked that I order a troponin and BNP. If CTA is positive for PE patient will be admitted to PCU per hospital protocol otherwise admit to [facility]Sur. Per my review of the CTA there is no evidence of pulmonary embolus. There is significant multi lobar bilateral infiltrates noted. Therefore plan is to admit to MedSurg. Lab Data Attestation: I reviewed the patient's lab results. Labs: Laboratory Results - last 24 hr 07/21/21 07/21/21 07/21/21 11:10 11:10 11:10 WBC 6.4 RBC 4.19 L Hgb 12.9 Hct 38.4 MCV 91.6 MCH 30.8 MCHC 33.6 RDW Std Deviation 47.6 H RDW Coeff of [place] 14.2 Plt Count 112 L MPV 10.7 Immature Gran % (Auto) 0.300 Neut % (Auto) 71.1 H Lymph % (Auto) 19.0 [place] % (Auto) 6.4 Eos % (Auto) 2.7 Baso % (Auto) 0.5 Absolute Neuts (auto) 4.5 Absolute Lymphs (auto) 1.21 Nucleated RBC % 0 Sodium 134 L Potassium 3.5 Chloride 99 Carbon Dioxide 30.0 Anion Gap 5 BUN 12 Creatinine 0.79 Estim Creat Clear Calc 87.39 Est GFR (MDRD) Af Amer 91 Est GFR (MDRD) Non-Af 75 BUN/Creatinine Ratio 15.2 Glucose 98 Lactic Acid 1.5 Calcium 8.9 Total Bilirubin 1.10 H AST 85 H ALT 90 H Alkaline Phosphatase 92 Total Protein 7.2 Albumin 2.3 L Globulin 4.9 H Albumin/Globulin Ratio 0.5 L Radiography Chest X-Ray - ED: 1 View (Single view chest x-ray reveals bilateral interstitial infiltrates consistent with Covid.), Read by ED Physician, Normal, Heart, Bony Structures, Right Infiltrate and Left Infiltrate Diagnostic Testing: Radiology Impression Chest X-Ray 07/21/21 11:00 IMPRESSION: Patchy infiltrates at the lung bases more prominent on the right side. Electronically Signed: Saad Vaca MD at 11:38 EDT , Service support , EKG Initial EKG: Interpretation: Sinus Rhythm (Normal sinus rhythm rate of 92. VA interval 130 ms. QS duration 76 ms. QT interval 338 ms. [place] is normal. EKG is normal.) Critical Care Time Critical Care Time: Yes Critical care time (excluding procedures): 30-74 minutes (26 minutes), Including time spent: (History, physical, documentation, review of prior records), Discussing w/Patient &/or Family/Gettering Operator, Discussing w/Consultants and Arranging Admission or Transfer Discharge Plan Triage Chief Complaint: Shortness of Breath ED Provider: Sergey Cornejo Dx/Rx/DC Orders Clinical Impression: Acute on chronic respiratory failure with hypoxemia, Bilateral pulmonary infiltrates on chest x-ray Prescriptions: No Action diltiazem HCl [Cartia XT] 180 mg capsule,extended release 24hr 180 mg PO DAILY RF: 0 duloxetine 60 mg capsule,delayed release(DR/EC) 60 mg PO QHS Qty: 90 RF: 1 lansoprazole 30 MG capsule 30 mg PO DAILY RF: 0 alendronate 70 MG tablet 70 mg PO FR RF: 0 pramipexole 0.5 MG tablet 0.5 mg PO BID RF: 0 aspirin 81 MG tablet 81 mg PO DAILY@0800 30 Days Qty: 30 RF: 0 hydrochlorothiazide 25 mg tablet 25 mg PO DAILY RF: 0 rosuvastatin 40 mg tablet 40 mg PO QHS RF: 0 albuterol sulfate 2.5 mg /3 mL (0.083 %) Solution For Nebulization 2.5 mg inhalation Q4H PRN (Reason: SOB &/OR WHEEZING) 14 Days Qty: 1 RF: 0 dexamethasone 4 mg Tablet 6 mg PO DAILY 8 Days Qty: 12 RF: 0 potassium chloride 20 MEQ tablet 40 meq PO DAILY Qty: 0 RF: 0 aspirin 81 mg capsule 81 mg PO DAILY 30 Days Qty: 30 RF: 0 Primary Care Provider: Marcelo Borges Referrals: Marcelo Borges MD [Primary Care Provider] - Disposition Disposition: Acute Care Hospital [facility]
[2021-07-21] MEDS: Albuterol 2.5 MG/3 ML VIAL.NEB. INHALATION (10:45)
--- NOTE | 2021-07-21 11:00 | RAD_ITS ---
STUDY: X-RAY CHEST REASON FOR EXAM: 76-year-old female patient with history of cough and shortness of breath. History of colon. TECHNIQUE: Single AP portable view of the chest. COMPARISON: Comparison is made with prior study dated 07/09/2020. FINDINGS: Since prior study, there is evidence of patchy infiltrates at both lung bases more prominent on the right side. There is no demonstrated pleural abnormality. Normal size heart. Normal mediastinum and jay. Normal visualized pulmonary arteries. There is atherosclerotic calcification of the aortic arch with tortuosity. There are diffuse degenerative changes of the visualized thoracic spine. There is degenerative osteoarthritis of the bilateral shoulders. Healed bilateral proximal humeral fractures. There is no demonstrated abnormality of the visualized soft tissue structures of the upper abdomen. RAD/Chest 1 View (Portable) IMPRESSION: Patchy infiltrates at the lung bases more prominent on the right side. Electronically Signed: Saad Vaca MD at 11:38 EDT , Service support ,
[2021-07-21 11:22] LABS: Absolute Lymphocyte Count 1.21 X10^3/uL (0.83-4.51); Absolute Neutrophil Count 4.5 X10^3/uL (2.0-7.7); Basophil# 0.03 X10^3/uL; Basophil% 0.5 % (0-1); Eosinophil# 0.17 X10^3/uL; Eosinophils% 2.7 % (0-5); Hematocrit 38.4 % (37-47); Hemoglobin 12.9 g/dL (12.0-15.0); Lymphocyte # 1.21 X10^3/ul (0.83-4.51); Mean Corp Hgb Conc 33.6 g/dL (32-36); Mean Corpuscular Hgb 30.8 pg (27.0-32.0); Mean Corpuscular Volume 91.6 fL (81-99); Mean Platelet Vol. 10.7 fl (6.2-12.0); Monocyte# 0.41 X10^3/uL; Monocyte% 6.4 % (0-10); NRBC Flagged by Analyzer 0 % (0-5); Neutrophil # 4.54 X10^3/uL (2.7-7.7); Neutrophil % 71.1 % (47-70); Platelet Count 112 K/mm3 (150-450); RBC Distribution Width CV 14.2 % (11.6-14.6); RBC Distribution Width SD 47.6 fl (35.1-43.9); Red Blood Count 4.19 M/mm3 (4.2-5.4); White Blood Count 6.4 K/mm3 (4.4-11.0)
[2021-07-21 11:38] LABS: ALB/GLOB Ratio 0.5 RATIO (0.9-2.4); AST(SGOT) 85 U/L (15-37); Alanine Aminotransfer ALT/SGPT 90 U/L (13-56); Albumin, Serum 2.3 g/dL (3.2-5.0); Alkaline Phosphatase 92 U/L (45-117); Anion Gap 5 (5-15); BUN 12 mg/dL (7-18); BUN/Creat Ratio 15.2 RATIO (10-20); Calcium,Total 8.9 mg/dL (8.5-10.1); Chloride 99 mmol/L (98-107); Creatinine, Serum 0.79 mg/dL (0.55-1.02); EST Glomerular Filtration Rate 75 mL/min (>60); Est Glom Filt Rate - Afr Amer 91 mL/min (>60); Estimated Creatinine Clearance 87.39 ml/min; Globulin 4.9 g/dL (2.2-4.2); Glucose 98 mg/dL (74-106); Potassium 3.5 mmol/L (3.5-5.1); Protein, Total 7.2 g/dL (6.4-8.2); Sodium Level 134 mmol/L (136-145)
[2021-07-21] MEDS: dexAMETHasone 10 MG/ML Vial IV (11:47)
[2021-07-21 11:48] LABS: Lactic Acid 1.5 mmol/L (0.4-1.9)
--- NOTE | 2021-07-21 12:38 | CT_ITS ---
STUDY: CTA CHEST REASON FOR EXAM: Female, 76 years old. Hypoxia. Recent history of Covid. RADIATION DOSAGE (If Supplied By Facility): CTDIvol = ( 11.46 ) mGy, DLP = ( 447.74 ) mGycm TECHNIQUE: The examination was performed with the intravenous administration of IV 100mL Isovue-370. Post-processing of the angiographic images was performed, with multiplanar reformation and 3D reconstruction. Individualized dose optimization techniques were used for this CT. COMPARISON: Comparison is made with prior study 06/30/2021. FINDINGS: Stable 1 cm x 1.2 cm hypodense nodule in the left lobe of the thyroid. Stable small benign-appearing bilateral axillary lymph nodes. Normal enhancement of the main pulmonary artery and right and left pulmonary arteries. Normal enhancement of the bilateral peripheral pulmonary arteries. There is no demonstrated pulmonary embolism. There is atherosclerotic calcification of the aortic arch with tortuosity. There is no demonstrated aortic dissection. There are valvular calcifications. Normal mediastinum. Normal hilar regions. Normal visualized trachea and bronchi. The lungs are well expanded. Since prior study, there has been a minor degree of improved aeration of both lungs. Residual patchy bilateral infiltrates are seen. Normal pleura. Normal chest wall structures. There are degenerative changes of thoracic spine. Normal visualized upper abdomen. CT/CTA Chest W/WO Contrast IMPRESSION: Mild degree of residual bilateral pulmonary infiltrates although there has been a moderate degree of improvement. No evidence of pulmonary embolism. Electronically Signed: Saad Vaca MD at 13:45 EDT , Service support ,
[2021-07-21 14:01] LABS: BNP,B-Type NATRIURETIC PEPTIDE 36.5 pg/mL (0-100)
[2021-07-21 14:02] LABS: Troponin-I HS 14 pg/mL (3.0-54.0)
--- NOTE | 2021-07-21 15:55 | HP.PCM.HOS_ITS ---
[facility] - General General Date of Admission: 07/21/21 Date of Service: 07/21/21 Chief Complaint: Shortness of breath HPI Narrative TREY CALVERT, is a 76 F who presented to the emergency department at [facility] on 07/21/2021 with a chief complaint of progressively worsening shortness of breath. The patient reports that she had Covid that was diagnosed with a positive test on June 222020. She states she had symptoms a couple days prior to that. She had a short hospitalization here from 06/30 to 07/01/2021 at which time she was discharged on 2 L of oxygen via nasal cannula. She has been on 2 L since that point in time. She was discharged with Decadron and has completed that course. She is also completed quarantine of 20 days since that point time. She has been assessing her pulse oximetry at home and it was noted to be 81% on her supplemental oxygen at home. She indicated she had issues with low pulse oximetry over the last couple days that she has been checking this frequently with her recent Covid diagnosis. She has a history of smoking remotely but no history of known lung disease. She denies any current fever, chills, nausea, vomiting, diarrhea, constipation, edema, myalgias, arthralgias, or change in smell or taste. She states she has had symptoms of this previously but those have all resolved at this time. She denies any current chest pain, travel, immobilization or surgeries. The patient indicates that she still fatigued and has considerable weakness but both of these symptoms have improved since her initial diagnosis of COVID-19. She does not have any pleuritic chest pain on exam. Her T-max in the emergency department was 99.4 her blood pressure and respiratory rate were stable although she was mildly tachypneic with a rate of 20. On room air she desatted to 81% and was 94% on 4 L nasal cannula. Again her home requirement has been 2 L. Her CBC was fairly unremarkable other than a mild thrombocytopenia with a platelet count of 112. Her white count is not elevated and she does not have a significant left shift. Her BMP shows mild hyponatremia with a sodium of 135, her LFTs are elevated with an ALT of 90 and an AST of 85. Given the clinical picture I asked that a troponin be assessed and it was normal at 14 and a BNP was 36.5. Her chest x-ray showed bilateral infiltrates consistent with multifocal lobular pneumonia. I did obtain a CTA given her recent Covid history and it shows resolving bilateral pulmonary infiltrates with a moderate degree of improvement and no evidence of PE. She was given antibiotics in the emergency department in the form of Rocephin and azithromycin; given her recent hospitalization I will convert these to vancomycin and Zosyn on admission. At this time I am unclear the exact etiology of her hypoxemia other than Covid but will initially treat her for HCAP given her recent hospitalization. [facility] Medical History Arthritis Former smoker GERD (gastroesophageal reflux disease) High cholesterol History of blood clots Osteoarthritis Home Medications lansoprazole 30 mg PO DAILY 09/14/14 [History Last Taken 07/21/21] alendronate 70 mg PO FR 12/14/16 [History Last Taken 07/16/21] pramipexole 0.5 mg PO BID 12/07/18 [History Last Taken 07/21/21] aspirin 81 mg PO DAILY@0800 30 Days #30 tab 08/18/20 [Rx Last Taken 07/21/21] diltiazem HCl 180 mg capsule,extended release 24 hr 180 mg PO DAILY 02/03/21 [History Last Taken 07/21/21] duloxetine 60 mg capsule,delayed release 60 mg PO QHS #90 cap 04/21/21 [Rx Last Taken 07/20/21] hydrochlorothiazide 25 mg PO DAILY 06/30/21 [History Last Taken 07/21/21] rosuvastatin 40 mg PO QHS 06/30/21 [History Last Taken 07/20/21] albuterol sulfate 2.5 mg INHALATION Q4H PRN 14 Days #1 ml 07/01/21 [Rx Last Taken 07/21/21] dexamethasone 6 mg PO DAILY 8 Days #12 tab 07/01/21 [Rx Last Taken 07/21/21] potassium chloride 40 meq PO DAILY #0 tab 07/01/21 [Rx Last Taken 07/21/21] menthol [Biofreeze (menthol)] 1 applic TOPICAL DAILY 07/21/21 [History Last Taken Unknown] Allergy/AdvReac Type Severity Reaction Status Date / Time meperidine HCl [From Demerol] Allergy Severe Swelling Verified 07/21/21 10:20 poison adelaide extract Allergy Rash Verified 07/21/21 10:20 [Poison Adelaide Extract] atorvastatin calcium AdvReac Upset Verified 07/21/21 10:20 [From Lipitor] Stomach cefaclor [From Ceclor] AdvReac PALPITATIONS, Verified 07/21/21 10:20 CHEST PRESSURE, SHORT OF BREATH doxycycline AdvReac Upset Verified 07/21/21 10:20 Stomach hydrocodone AdvReac Upset Verified 07/21/21 10:20 Stomach Family History Mother Arthritis CVA (cerebral vascular accident) Father Myocardial infarction Heart disease Hypertension High cholesterol Surgical History History of [id number] bypass History of carotid endarterectomy History of cataract surgery History of extraction of renal calculus History of hip replacement History of knee replacement History of renal stent History of toe surgery Social History Smoking Status: Former smoker Tobacco: How many years used: 40 Electronic Cigarette Use: not used how long ago did patient quit smokin years ago second hand exposure: No alcohol intake: current alcohol intake frequency: holidays/special occasions only substance use type: does not use ROS Constitutional Constitutional: Reports fatigue and weakness; Denies anorexia, change in weight, chills, fever(s), malaise, night sweats or other Eyes Eyes: Denies blurry vision, change in eye color, change in vision, discharge from eye(s), double vision, erythema, eye pain, loss of vision or other ENT HEENT: Denies abnormal hearing, dysphagia, ear pain, epistaxis, headache(s), hearing loss, nasal congestion, nasal discharge, post nasal drip, sinus pressure, sore throat or other Cardiovascular Cardiovascular: Reports dyspnea on exertion; Denies chest pain, claudication, edema, lightheadedness, orthopnea, palpitations, paroxysmal nocturnal dyspnea, rapid heart rate, syncope or other Respiratory/Chest Respiratory/Chest: Reports cough, dyspnea, shortness of breath at rest and shortness of breath with exertion; Denies excessive phlegm production, hemoptysis, productive cough, wheezing or other Gastrointestinal Gastrointestinal: Denies abdominal pain, coffee ground emesis, constipation, diarrhea, dyspepsia, hematemesis, hematochezia, loose stools, melena, nausea, vomiting or other Genitourinary Genitourinary: Denies burning urination, difficulty urinating, dysuria, hematuria, nocturia, urinary frequency, urinary hesitancy, urinary incontinence, urinary urgency or other Musculoskeletal Musculoskeletal: Denies arthralgias, back pain, joint pain, joint stiffness, joint swelling, myalgias, neck pain or other Neurologic Neurologic: Denies abnormal gait, abnormal speech, confusion, disequilibrium, dizziness, focal weakness, headache(s), numbness, paresthesias, seizure-like activity, seizures, syncope, tingling, tremor(s) or other Psychiatric Psychiatric: Denies anxiety, depression, homicidal ideation, suicidal ideation or other Endocrine Endocrinology: Denies change in body appearance, cold intolerance, excessive sweating, heat intolerance, polydipsia, polyuria or other Hematologic/Lymphatic Hematologic/Lymphatic: Denies anemia, easy bleeding, easy bruising, lymphadenopathy or other Allergic/Immunologic Allergic/Immunologic: Denies rhinitis, hives, eczemia, asthma or other Vital Signs Vital Signs Vital Signs: 07/21/21 10:17 07/21/21 10:48 07/21/21 11:41 Temperature 99.4 F H 98.2 F Temperature Source Temporal Temporal Pulse Rate 99 89 94 Respiratory Rate 18 26 H 18 Respiratory Effort Short of Breath Labored Accessory Muscle Use Respiratory Depth Normal Respiratory Pattern Tachypnea Tachypnea Blood Pressure 116/99 H 132/84 H Blood Pressure Mean 104 100 Pulse Ox 90 92 81 Oxygen Delivery Method Room Air Room Air Nasal Cannula Oxygen Flow Rate (L/min) 4 07/21/21 14:17 Temperature 99 F Temperature Source Temporal Pulse Rate 75 Respiratory Rate 20 H Respiratory Effort Respiratory Depth Respiratory Pattern Blood Pressure 132/58 H Blood Pressure Mean 82 Pulse Ox 94 Oxygen Delivery Method Nasal Cannula Oxygen Flow Rate (L/min) Weight Weight: 115.666 kg Body Mass Index (BMI) 55.1 Physical Exam Const alert, oriented x3 and no apparent distress Constitutional Narrative: Older white female who appears a bit younger than stated age, sitting up in bed, at bedside, appears comfortable and nontoxic, currently on 4 L nasal cannula General Appearance: cooperative HEENT normocephalic, head/scalp atraumatic, hearing grossly normal bilaterally, moist oral mucous membranes and oropharynx normal HEENT Narrative: Dentures in place, Mallampati 2-3, no thrush noted Mouth: oral and palatal mucosa normal Eyes PERRL, EOMs intact bilaterally and conjunctivae normal Neck no lymphadenopathy, supple, no JVD and no carotid bruits Neck Narrative: Trachea midline, no thyroid enlargement noted Resp normal respiratory effort, no retractions, no use of accessory muscles and clear to auscultation bilaterally Auscultation: Negative for crackles, rales, rhonchi or wheezes Cardio regular rate, regular rhythm, S1 normal heart sound, S2 normal heart sound, no murmurs, no rub, no gallops, no clicks and no JVD GI normal to inspection, nondistended, normoactive bowel sounds, soft to palpation, non-tender and non-distended Extremity no clubbing, cyanosis or edema Peripheral Pulses: Yes pulses 2+ throughout Skin no rashes or lesions noted, no wounds, skin turgor normal, no jaundice, no petechiae and no mottling Neuro oriented x3, CN's II-XII intact bilaterally and moves all extremities Neuro Narrative: Mild generalized weakness proximal greater than distal Sensorium / Orientation: awake, alert, oriented to person and oriented to place Speech: speech normal Psych affect normal Results Medical Records Data Attestation: I reviewed the patient's medical records Lab / Micro Data Result Diagrams: 07/21/21 11:10 07/21/21 11:10 Labs: Laboratory Results - last 24 hr 07/21/21 11:10: WBC 6.4, RBC 4.19 L, Hgb 12.9, Hct 38.4, MCV 91.6, MCH 30.8, MCHC 33.6, RDW Std Deviation 47.6 H, RDW Coeff of Davidson 14.2, Plt Count 112 L, MPV 10.7, Immature Gran % (Auto) 0.300, Neut % (Auto) 71.1 H, Lymph % (Auto) 19.0, Cooper % (Auto) 6.4, Eos % (Auto) 2.7, Baso % (Auto) 0.5, Absolute Neuts (auto) 4.5, Absolute Lymphs (auto) 1.21, Nucleated RBC % 0 07/21/21 11:10: Sodium 134 L, Potassium 3.5, Chloride 99, Carbon Dioxide 30.0, Anion Gap 5, BUN 12, Creatinine 0.79, Estim Creat Clear Calc 87.39, Est GFR (MDRD) Af Amer 91, Est GFR (MDRD) Non-Af 75, BUN/Creatinine Ratio 15.2, Glucose 98, Calcium 8.9, Total Bilirubin 1.10 H, AST 85 H, ALT 90 H, Alkaline Phosphatase 92, Total Protein 7.2, Albumin 2.3 L, Globulin 4.9 H, Albumin/ Globulin Ratio 0.5 L 07/21/21 11:10: Lactic Acid 1.5 07/21/21 11:10: Troponin I High Sens 14 07/21/21 11:10: B-Natriuretic Peptide 36.5 Radiology Impression Chest X-Ray 07/21/21 11:00 IMPRESSION: Patchy infiltrates at the lung bases more prominent on the right side. Electronically Signed: Saad Vaca MD at 11:38 EDT , Service support , Chest CTA 07/21/21 12:38 IMPRESSION: Mild degree of residual bilateral pulmonary infiltrates although there has been a moderate degree of improvement. No evidence of pulmonary embolism. Electronically Signed: Saad Vaca MD at 13:45 EDT , Service support , Assessment & Plan Assessment/Plan (1) Acute on chronic respiratory failure with hypoxemia: (2) Bilateral pulmonary infiltrates on chest x-ray: (3) Transaminitis: PLAN: Acute on chronic hypoxic respiratory failure secondary to recent COVID-19 infection/possible gram-negative/positive pneumonia -We will initiate Vanco and Zosyn with recent hospitalization -CT shows improved infiltrates that when compared to previous CAT scan which suggest resolving Covid -Patient has completed Decadron -COVID-19 PCR is negative -Viral respiratory panel -Check MRSA PCR -Blood cultures are pending -Check sputum culture -CTA is negative for PE -No signs of cardiac compromise contributing to hypoxia -Continue aggressive pulmonary toilet -Incentive spirometer and Acapella -Patient will need pulmonary follow-up as an outpatient -If patient persistently hypoxic may need pulmonary consultation -Patient had been on 2 L at home with nasal cannula after her COVID-19 infection it is possible that she may just need slightly more oxygen at this time until her lungs heal from her viral pneumonia -If no sign of bacterial pneumonia can be found would discontinue antibiotics Transaminitis -Suspect may be related to recent COVID-19 infection -We will trend -If do not improve consider further work-up -Alk phos is within normal limits History of hypertension -Continue diltiazem 180 mg daily -Continue hydrochlorothiazide 25 mg daily Hyperlipidemia -Continue rosuvastatin Osteoporosis -We will hold alendronate -Restart medications on discharge Restless leg syndrome -Continue Requip GERD -Continue PPI History of tobacco abuse -No documentation of COPD -Patient does have as needed albuterol at home--> unclear on when this was prescribed -I do not see that PFTs have ever been done -She quit in 2005 and smoked 1 pack/day -Would recommend outpatient PFTs and follow-up with pulmonary Bilateral carotid artery stenosis -Follows at [facility] for this Depression -Continue Cymbalta DVT prophylaxis -Lovenox 40 mg daily CODE STATUS -Full code Charges/Coding Visit Charges Inpatient E&M: 78032 Init Hosp L3
--- NOTE | 2021-07-21 16:21 | PCM.RX.CS ---
Consult Pharmacy has been consulted to manage selected antiobiotic: Vancomycin Type of Consult: New start Suspected Infection: Pneumonia Labs: Sodium 134 mmol/L (136-145) L 07/21/21 11:10 Potassium 3.5 mmol/L (3.5-5.1) 07/21/21 11:10 Chloride 99 mmol/L (98-107) 07/21/21 11:10 Carbon Dioxide 30.0 mmol/L (21.0-32.0) 07/21/21 11:10 Anion Gap 5 (5-15) 07/21/21 11:10 BUN 12 mg/dL (7-18) 07/21/21 11:10 Creatinine 0.79 mg/dL (0.55-1.02) 07/21/21 11:10 Est GFR (MDRD) Af Amer 91 mL/min (>60) 07/21/21 11:10 Est GFR (MDRD) Non-Af 75 mL/min (>60) 07/21/21 11:10 BUN/Creatinine Ratio 15.2 RATIO (10-20) 07/21/21 11:10 Glucose 98 mg/dL (74-106) 07/21/21 11:10 Pharmacy Plan for Drug Dosing: NEW START IV VANCOMYCIN Consulting Physician: SACHIN Indication: PNEUMONIA Goal Trough: 15-20 MG/DL SrCr: 0.79 MG/DL CrCl: 51.7 ML/MIN (USING ADJ BW OF 54.1 KG) Comments: ER DOSE OF 2000MG GIVEN @ 1159 Vancomycin Dose: WILL START 750MG Q12H PER POLICY AND GET A TROUGH PRIOR TO THE 4TH TOTAL DOSE. Pending Level: 07/23/21 @ 0130 Pharmacy Service will continue to monitor and adjust dosing as required.
--- NOTE | 2021-07-21 18:11 | PCS.PANDOC ---
PANDEMIC DOCUMENTATION INITIATED: Date: 06/28/2021 Time: 190
[2021-07-21] MEDS: Ipratropium/Albuterol Sulfate 3 ML AMPUL.NEB INHALATION (18:37)
[2021-07-21 21:04] LABS: M R Staph aureus DNA By PCR Negative (Negative); Probe Check PASS; Specimen Processing Control PASS
[2021-07-21] MEDS: ROSUVASTATIN CALCIUM 40 MG TABLET PO (21:07)
[2021-07-21] MEDS: Pramipexole Di-HCl 0.5 MG Tablet PO (21:07)
[2021-07-21] MEDS: DULoxetine Hcl 60 MG Capsule PO (21:07)
[2021-07-22 03:20] VITALS: BP 135/48; PULSE 73; RESP 20; TEMP 36.5; O2SAT 93
[2021-07-22 06:55] LABS: Absolute Lymphocyte Count 0.93 X10^3/uL (0.83-4.51); Absolute Neutrophil Count 5.6 X10^3/uL (2.0-7.7); Basophil# 0.01 X10^3/uL; Basophil% 0.1 % (0-1); Hematocrit 39.9 % (37-47); Hemoglobin 12.9 g/dL (12.0-15.0); Lymphocyte # 0.93 X10^3/ul (0.83-4.51); Lymphocyte % 13.9 % (19-41); Mean Corp Hgb Conc 32.3 g/dL (32-36); Mean Corpuscular Hgb 30.5 pg (27.0-32.0); Mean Corpuscular Volume 94.3 fL (81-99); Monocyte# 0.14 X10^3/uL; Monocyte% 2.1 % (0-10); NRBC Flagged by Analyzer 0 % (0-5); Neutrophil # 5.58 X10^3/uL (2.7-7.7); Neutrophil % 83.6 % (47-70); Platelet Count 120 K/mm3 (150-450); RBC Distribution Width CV 14.1 % (11.6-14.6); RBC Distribution Width SD 47.9 fl (35.1-43.9); Red Blood Count 4.23 M/mm3 (4.2-5.4); White Blood Count 6.7 K/mm3 (4.4-11.0)
[2021-07-22 07:09] VITALS: PULSE 72; RESP 18; O2SAT 94
[2021-07-22] MEDS: Ipratropium/Albuterol Sulfate 3 ML AMPUL.NEB INHALATION (07:09)
[2021-07-22 07:21] LABS: ALB/GLOB Ratio 0.4 RATIO (0.9-2.4); AST(SGOT) 61 U/L (15-37); Alanine Aminotransfer ALT/SGPT 83 U/L (13-56); Albumin, Serum 2.1 g/dL (3.2-5.0); Alkaline Phosphatase 92 U/L (45-117); Anion Gap 7 (5-15); BUN 18 mg/dL (7-18); BUN/Creat Ratio 22.5 RATIO (10-20); Calcium,Total 8.5 mg/dL (8.5-10.1); Chloride 104 mmol/L (98-107); EST Glomerular Filtration Rate 74 mL/min (>60); Est Glom Filt Rate - Afr Amer 89 mL/min (>60); Estimated Creatinine Clearance 69.56 ml/min; Glucose 128 mg/dL (74-106); Magnesium 2.1 mg/dL (1.6-2.6); Phosphorus 2.9 mg/dL (2.5-4.9); Potassium 3.3 mmol/L (3.5-5.1); Protein, Total 7.1 g/dL (6.4-8.2); Sodium Level 136 mmol/L (136-145)
[2021-07-22] MEDS: dilTIAZem CD 180 MG Capsule PO (09:47)
[2021-07-22] MEDS: Pramipexole Di-HCl 0.5 MG Tablet PO (09:47)
[2021-07-22] MEDS: Aspirin E.C. 81 MG Tablet PO (09:47)
[2021-07-22] MEDS: Potassium Chloride Oral Tablet 20 MEQ 60 MEQ PO (09:47)
[2021-07-22] MEDS: hydroCHLOROthiazide 25 MG Tablet PO (09:47)
[2021-07-22] MEDS: Enoxaparin 40 MG/0.4 ML Syringe SC (09:48)
[2021-07-22 09:54] VITALS: BP 144/57; PULSE 84; RESP 18; TEMP 36.4; O2SAT 84; O2SAT 87; O2SAT 90; O2SAT 94
--- NOTE | 2021-07-22 10:00 | DS.PCM_ITS ---
Providers Date of Admission: 07/21/21 Primary Care Physician: Dr. Marcelo Borges MD Reason For Visit: HYPOXIA Diagnosis Discharge Diagnosis (1) Acute on chronic respiratory failure with hypoxemia: Status: Chronic Code(s): J96.21 - Acute and chronic respiratory failure with hypoxia (2) Bilateral pulmonary infiltrates on chest x-ray: Status: Acute Code(s): R91.8 - Other nonspecific abnormal finding of lung field (3) Transaminitis: Status: Acute Code(s): R74.01 - Elevation of levels of liver transaminase levels Medications at Discharge Home Medications lansoprazole 30 mg PO DAILY 09/14/14 alendronate 70 mg PO FR 12/14/16 pramipexole 0.5 mg PO BID 12/07/18 aspirin 81 mg PO DAILY@0800 30 Days #30 tab 08/18/20 diltiazem HCl 180 mg capsule,extended release 24 hr 180 mg PO DAILY 02/03/21 duloxetine 60 mg capsule,delayed release 60 mg PO QHS #90 cap 04/21/21 hydrochlorothiazide 25 mg PO DAILY 06/30/21 rosuvastatin 40 mg PO QHS 06/30/21 albuterol sulfate 2.5 mg INHALATION Q4H PRN 14 Days #1 ml 07/01/21 potassium chloride 40 meq PO DAILY #0 tab 07/01/21 Biofreeze (menthol) 1 applic TOPICAL DAILY 07/21/21 Hospital Course Operations None Procedures None Summary of Care Provided Minutes Spent on Discharge: 39 Hospital Course: TREY CALVERT, is a 76 F who presented to the emergency department at [facility] on 07/21/2021 with a chief complaint of progressively worsening shortness of breath. The patient reports that she had Covid that was diagnosed with a positive test on June 222020. She stated she had symptoms a couple days prior to that. She had a short hospitalization here from 06/30 to 07/01/2021 at which time she was discharged on 2 L of oxygen via nasal cannula. She has been on 2 L since that point in time. She was discharged with Decadron and has completed that course. She is also completed quarantine of 20 days since that point time. She has been assessing her pulse oximetry at home and it was noted to be 81% on her supplemental oxygen at home and she was noticing that she had been lower for some time. She indicated she had issues with low pulse oximetry over the last couple days that were more significant and that she has been checking this frequently with her recent Covid diagnosis. She has a history of smoking remotely but no history of known lung disease. She denied any current fever, chills, nausea, vomiting, diarrhea, constipation, edema, myalgias, arthralgias, or change in smell or taste. She stated she has had symptoms of this previously but those have all resolved at this time. She denied any current chest pain, travel, immobilization or surgeries. The patient indicated that she still fatigued and has considerable weakness but both of these symptoms have improved since her initial diagnosis of COVID-19. She does not have any pleuritic chest pain. She was afebrile in the emergency department, her blood pressure and respiratory rate were stable although she was mildly tachypneic with a rate of 20. On room air she desatted to 81% and was 94% on 4 L nasal cannula. Again her home requirement has been 2 L. Her CBC was fairly unremarkable other than a mild thrombocytopenia with a pl atelet count of 112. Her white count is not elevated and she does not have a significant left shift. Her BMP shows mild hyponatremia with a sodium of 135, her LFTs are elevated with an ALT of 90 and an AST of 85. Given the clinical picture I asked that a troponin be assessed and it was normal at 14 and a BNP was 36.5. Her chest x-ray showed bilateral infiltrates consistent with multifocal lobular pneumonia. I did obtain a CTA given her recent Covid history and it shows resolving bilateral pulmonary infiltrates with a moderate degree of improvement and no evidence of PE. She was given antibiotics in the emergency department in the form of Rocephin and azithromycin. We did admit her and initiated antibiotics but the patient persistently had no signs of infection, a CT that showed improving infiltrates, and she was asymptomatic other than hypoxia. She had negative Legionella and strep pneumo urine antigens. A viral PCR was negative as well. I suspect that her oxygen requirements increased during her Covid infection after discharge and that she will require increased amounts of oxygen. She was reevaluated for home O2 and needs 4 L while exerting herself and only 2 L while at rest. She was discharged with a change in home oxygen requirements with a new prescription and instructed to follow-up with her PCP in 1 week. She was also instructed to follow-up with pulmonary as an outpatient. She does have a tobacco history so I suspect that she possibly has some underlying COPD. He was discharged home in stable condition Discharge diagnoses: Acute hypoxic respiratory failure secondary to recent COVID-19 infection Transaminitis Hypertension Hyperlipidemia Osteoporosis Restless leg syndrome GERD History of tobacco abuse Bilateral carotid artery stenosis Depression Physical Exam Const alert, oriented x3 and no apparent distress Constitutional Narrative: Older white female who appears a bit younger than stated age, sitting up in bed, currently on 3 L nasal cannula at rest. Appears comfortable, nontoxic, eating breakfast at this time General Appearance: cooperative, comfortable, well kempt and well developed Exam Limitations: no limitations Nutritional Appearance: obese HEENT normocephalic, head/scalp atraumatic, hearing grossly normal bilaterally, moist oral mucous membranes and oropharynx normal HEENT Narrative: No thrush, dentures in place, Mallampati 2 Eyes PERRL, EOMs intact bilaterally and conjunctivae normal Neck no lymphadenopathy, supple, no JVD and no carotid bruits Neck Narrative: Trachea midline, no thyroid enlargement noted Resp normal respiratory effort, no retractions, no use of accessory muscles and clear to auscultation bilaterally Auscultation: Negative for crackles, rales, rhonchi or wheezes Cardio regular rate, regular rhythm, S1 normal heart sound, S2 normal heart sound, no murmurs, no rub, no gallops, no clicks and no JVD GI normal to inspection, nondistended, normoactive bowel sounds, soft to palpation, non-tender and non-distended Extremity no clubbing, cyanosis or edema Skin no rashes or lesions noted, no wounds, skin turgor normal, no jaundice, no petechiae and no mottling Neuro oriented x3, CN's II-XII intact bilaterally and moves all extremities Neuro Narrative: Mild generalized weakness proximal greater than distal Sensorium / Orientation: awake, alert, oriented to person and oriented to place Speech: speech normal Psych affect normal Weight / BMI Weight Weight: 73.652 kg Body Mass Index (BMI) 35.1 ABG / Lab / Microbiology Data Result Diagrams: 07/22/21 05:56 07/22/21 05:56 Laboratory: Laboratory Results - last 24 hr 07/21/21 11:10: WBC 6.4, RBC 4.19 L, Hgb 12.9, Hct 38.4, MCV 91.6, MCH 30.8, MCHC 33.6, RDW Std Deviation 47.6 H, RDW Coeff of Davidson 14.2, Plt Count 112 L, MPV 10.7, Immature Gran % (Auto) 0.300, Neut % (Auto) 71.1 H, Lymph % (Auto) 19.0, Hopkins % (Auto) 6.4, Eos % (Auto) 2.7, Baso % (Auto) 0.5, Absolute Neuts (auto) 4.5, Absolute Lymphs (auto) 1.21, Nucleated RBC % 0 07/21/21 11:10: Sodium 134 L, Potassium 3.5, Chloride 99, Carbon Dioxide 30.0, Anion Gap 5, BUN 12, Creatinine 0.79, Estim Creat Clear Calc 87.39, Est GFR (MDRD) Af Amer 91, Est GFR (MDRD) Non-Af 75, BUN/Creatinine Ratio 15.2, Glucose 98, Calcium 8.9, Total Bilirubin 1.10 H, AST 85 H, ALT 90 H, Alkaline Phosphatase 92, Total Protein 7.2, Albumin 2.3 L, Globulin 4.9 H, Al bumin/Globulin Ratio 0.5 L 07/21/21 11:10: Lactic Acid 1.5 07/21/21 11:10: Troponin I High Sens 14 07/21/21 11:10: B-Natriuretic Peptide 36.5 07/21/21 13:25: COVID-19 (JORGE) Not Detected 07/21/21 18:33: MRSA (PCR) Negative 07/22/21 05:56: WBC 6.7, RBC 4.23, Hgb 12.9, Hct 39.9, MCV 94.3, MCH 30.5, MCHC 32.3, RDW Std Deviation 47.9 H, RDW Coeff of Davidson 14.1, Plt Count 120 L, MPV 11.0, Immature Gran % (Auto) 0.300, Neut % (Auto) 83.6 H, Lymph % (Auto) 13.9 L, Hopkins % (Auto) 2.1, Eos % (Auto) 0.0, Baso % (Auto) 0.1, Absolute Neuts (auto) 5.6, Absolute Lymphs (auto) 0.93, Nucleated RBC % 0 09/09/21 05:56: Sodium 136, Potassium 3.3 L, Chloride 104, Carbon Dioxide 25.0, Anion Gap 7, BUN 18, Creatinine 0.80, Estim Creat Clear Calc 69.56, Est GFR (MDRD) Af Amer 89, Est GFR (MDRD) Non-Af 74, BUN/Creatinine Ratio 22.5 H, Glucose 128 H, Calcium 8.5, Phosphorus 2.9, Magnesium 2.1, Total Bilirubin 0.70, AST 61 H, ALT 83 H, Alkaline Phosphatase 92, Total Protein 7.1, Albumin 2.1 L, Globulin 5.0 H, Albumin/Globulin Ratio 0.4 L Microbiology: Microbiology 07/21/21 18:34 Mucosa - Nose Respiratory Panel (PCR) - Final Radiography Diagnostic Testing: Radiology Impression Chest X-Ray 07/21/21 11:00 IMPRESSION: Patchy infiltrates at the lung bases more prominent on the right side. Electronically Signed: Saad Vaca MD at 11:38 EDT , Service support , Chest CTA 07/21/21 12:38 IMPRESSION: Mild degree of residual bilateral pulmonary infiltrates although there has been a moderate degree of improvement. No evidence of pulmonary embolism. Electronically Signed: Saad Vaca MD at 13:45 EDT , Service support , D/C Instructions Discharge Diet: Low fat / Low cholesterol Discharge Activity: Return to Normal Activity Meaningful Use Info Meaningful Use Diagnoses (Choose all that apply): None applicable Discharge Plan Admission Admit Date/Time: 07/21/21 14:14 Primary Reason for Your Visit: Shortness of Breath Attending Provider: Magy Stephenson Primary Care Provider: Marcelo Borges Instructions Additional Instructions / Restrictions: 1. Please call and make an appointment with the pulmonology physician listed below in the next 24 to 48 hours 2. Please use oxygen as directed at discharge until instructed otherwise by physician Discharge Orders/Prescriptions Prescriptions: Continued diltiazem HCl [Cartia XT] 180 mg capsule,extended release 24hr 180 mg PO DAILY RF: 0 duloxetine 60 mg capsule,delayed release(DR/EC) 60 mg PO QHS Qty: 90 RF: 1 lansoprazole 30 MG capsule 30 mg PO DAILY RF: 0 alendronate 70 MG tablet 70 mg PO FR RF: 0 pramipexole 0.5 MG tablet 0.5 mg PO BID RF: 0 aspirin 81 MG tablet 81 mg PO DAILY@0800 30 Days Qty: 30 RF: 0 hydrochlorothiazide 25 mg tablet 25 mg PO DAILY RF: 0 rosuvastatin 40 mg tablet 40 mg PO QHS RF: 0 albuterol sulfate 2.5 mg /3 mL (0.083 %) Solution For Nebulization 2.5 mg inhalation Q4H PRN (Reason: SOB &/OR WHEEZING) 14 Days Qty: 1 RF: 0 potassium chloride 20 MEQ tablet 40 meq PO DAILY Qty: 0 RF: 0 Biofreeze (menthol) 4 % Gel 1 applic TOPICAL DAILY RF: 0 Discontinued dexamethasone 4 mg Tablet 6 mg PO DAILY 8 Days Qty: 12 RF: 0 Referrals / Follow Up: Colt Marquez MD [STAFF PHYSICIAN] - 10/26/21 7:45 am (put pt on the wait list cant squeeze her in any sooner) Marcelo Borges MD [Primary Care Provider] - 07/26/21 9:00 am (virtual apt) Disposition Disposition (needs filled in before D/C Order can be placed): Home, Self Care Charges/Coding Visit Charges Inpatient E&M: 83131 Disch Hosp
--- NOTE | 2021-07-22 11:45 | CASEMGMT ---
OSMEL ANGEL chart review: Patient was admitted 06/30-07/01/21 for covid pneumonia. See OSMEL ANGEL assessment from 07/01/21. Patient was discharged to home with home oxygen at 2 lpm through [employer]. Patient returned 07/21 to [facility] ED for SOB and hypoxic on home oxygen. Patient states she had follow-up appt with PCP, wearing oxygen as prescribed, and taking medications as prescribed. Patient discharging home today, patient is now requiring 3 LPM. Updated script received for home oxygen and faxed to [employer]. Patient states she has portable tank at home and will bring tank with him when he picks her up. Disposition Plan: Patient to discharge home with updated oxygen, family support, and follow-up plans in place.
--- NOTE | 2021-07-22 13:15 | PCM.DC ---
Discharge Instructions Diet Discharge Diet: Low fat / Low cholesterol Follow Up Care Test Results: Test results from this visit will be discussed in further detail at your follow-up appointment, if applicable. Discharge Plan Admission Admit Date/Time: 07/21/21 14:14 Primary Reason for Your Visit: Shortness of Breath Attending Provider: Magy Stephenson Primary Care Provider: Marcelo Borges Instructions Additional Instructions / Restrictions: 1. Please call and make an appointment with the pulmonology physician listed below in the next 24 to 48 hours 2. Please use oxygen as directed at discharge until instructed otherwise by physician Discharge Orders/Prescriptions Prescriptions: Continued diltiazem HCl [Cartia XT] 180 mg capsule,extended release 24hr 180 mg PO DAILY RF: 0 duloxetine 60 mg capsule,delayed release(DR/EC) 60 mg PO QHS Qty: 90 RF: 1 lansoprazole 30 MG capsule 30 mg PO DAILY RF: 0 alendronate 70 MG tablet 70 mg PO FR RF: 0 pramipexole 0.5 MG tablet 0.5 mg PO BID RF: 0 aspirin 81 MG tablet 81 mg PO DAILY@0800 30 Days Qty: 30 RF: 0 hydrochlorothiazide 25 mg tablet 25 mg PO DAILY RF: 0 rosuvastatin 40 mg tablet 40 mg PO QHS RF: 0 albuterol sulfate 2.5 mg /3 mL (0.083 %) Solution For Nebulization 2.5 mg inhalation Q4H PRN (Reason: SOB &/OR WHEEZING) 14 Days Qty: 1 RF: 0 potassium chloride 20 MEQ tablet 40 meq PO DAILY Qty: 0 RF: 0 Biofreeze (menthol) 4 % Gel 1 applic TOPICAL DAILY RF: 0 Discontinued dexamethasone 4 mg Tablet 6 mg PO DAILY 8 Days Qty: 12 RF: 0 Referrals / Follow Up: Colt Marquez MD [STAFF PHYSICIAN] - Within 2 Weeks Marcelo Borges MD [Primary Care Provider] - 07/26/21 9:00 am (virtual apt) Disposition Disposition (needs filled in before D/C Order can be placed): Home, Self Care
[2021-07-22 13:20] VITALS: BP 126/56; PULSE 80; RESP 18; TEMP 36.6; O2SAT 94
--- NOTE | 2021-07-23 15:21 | CASEMGMT ---
Pt RN CM Discharge Follow Up Phone Call: LUCRETIA: Kiley Strata: 3 Call Date: 07/23/21 Discharge Date: 07/22/21 Time of Call:1520 Duration:2 min Admitting Dx:hypoxia RN CM completed follow up phone call after recent hospitalization. Pt states she is doing really well. She states she is using her O2 and her nebulizer treatments and they are working for her. Pt states she cannot get into the pulm until October but her PCP will help her wean off of the O2. She has a virtual appt with on the . Pt denies any questions regarding her dc instructions or medications.
== END 2021-07-22 13:44 | disposition home or self-care (01) | DRG 189 ==
LOC: ED 14:21 → MS3 14:45
PROVIDERS: Admitting Provider Internal Medicine; Emergency Provider Emergency Medicine; PCP Family Medicine; Visit Provider Internal Medicine
DX: J96.21 Acute and chronic respiratory failure with hypoxia (principal); E87.1 Hypo-osmolality and hyponatremia; Z68.43 Body mass index [BMI] 50.0-59.9, adult; R91.8 Other nonspecific abnormal finding of lung field; R74.01 Elevation of levels of liver transaminase levels; D69.6 Thrombocytopenia, unspecified; E66.9 Obesity, unspecified; I10 Essential (primary) hypertension; E78.00 Pure hypercholesterolemia, unspecified; E78.5 Hyperlipidemia, unspecified; F32.9 Major depressive disorder, single episode, unspecified; G25.81 Restless legs syndrome; I65.23 Occlusion and stenosis of bilateral carotid arteries; K21.9 Gastro-esophageal reflux disease without esophagitis; M19.90 Unspecified osteoarthritis, unspecified site; M81.0 Age-related osteoporosis without current pathological fracture; Z86.16 Personal history of COVID-19; Z87.01 Personal history of pneumonia (recurrent); Z86.718 Personal history of other venous thrombosis and embolism; Z87.442 Personal history of urinary calculi; Z99.81 Dependence on supplemental oxygen; Z79.82 Long term (current) use of aspirin; Z79.899 Other long term (current) drug therapy; Z87.891 Personal history of nicotine dependence
CPT/HCPCS: 36415; 71045; 71275; 80053; 83605; 83735; 83880; 84100; 84484; 85025; 87040; 87633; 87635; 87641; 93005; 94640; 94667; 94668; 99251; 99285; J7030; J7040; J7050; Q9967; U0005; A4216; G0463; U0003

== ENCOUNTER → 2021-08-10 09:53 | Outpatient (CLI) | payer MEDICARE, SELFPAY ==
[2021-08-12 14:09] LABS: Free Kappa Light Chains 60.2 mg/L (3.3-19.4); Free Lambda Light Chains 87.1 mg/L (5.7-26.3)
[2021-08-12 14:32] LABS: Immunofixation Urine Comment: (.)
== END ==
PROVIDERS: PCP Family Medicine; Referring Provider Nurse Practitioner Family; Visit Provider Nurse Practitioner Family
DX: G62.9 Polyneuropathy, unspecified (principal)
CPT/HCPCS: 36415; 83883; 86335

== ENCOUNTER 2021-09-21 07:27 | Day surgery (SDC) | payer MEDICARE, SELFPAY ==
[2021-09-21] VITALS (7 sets, daily range): BP systolic 106–152; BP diastolic 50–83; PULSE 63–69; RESP 16; TEMP 36.1–36.3; O2SAT 95–98; BMI 34.2
--- NOTE | 2021-09-21 07:58 | HP.PCM_ITS ---
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 Ironer Required: No Is patient in pain?: No Allergies meperidine HCl [From Demerol] Allergy (Severe, Verified 09/15/21 09:00) Swelling poison adelaide extract [Poison Adelaide Extract] Allergy (Verified 09/15/21 09:00) Rash atorvastatin calcium [From Lipitor] Adverse Reaction (Verified 09/15/21 09:00) Upset Stomach cefaclor [From Ceclor] Adverse Reaction (Verified 09/15/21 09:00) PALPITATIONS, CHEST PRESSURE, SHORT OF BREATH doxycycline Adverse Reaction (Verified 09/15/21 09:00) Upset Stomach hydrocodone Adverse Reaction (Verified 09/15/21 09:00) Upset Stomach Medications lansoprazole 30 mg PO DAILY 09/14/14 [History Confirmed 09/15/21] alendronate 70 mg PO FR 12/14/16 [History Confirmed 09/15/21] pramipexole 0.5 mg PO BID 12/07/18 [History Confirmed 09/15/21] aspirin 81 mg PO DAILY@0800 30 Days #30 tab 08/18/20 [Rx Confirmed 09/15/21] diltiazem HCl 180 mg capsule,extended release 24 hr 180 mg PO DAILY 02/03/21 [History Confirmed 09/15/21] hydrochlorothiazide 25 mg PO DAILY 06/30/21 [History Confirmed 09/15/21] rosuvastatin 40 mg PO QHS 06/30/21 [History Confirmed 09/15/21] albuterol sulfate 2.5 mg INHALATION Q4H PRN 14 Days #1 ml 07/01/21 [Rx Confirmed 09/15/21] potassium chloride 40 meq PO DAILY #0 tab 07/01/21 [Rx Confirmed 09/15/21] Biofreeze (menthol) 1 applic TOPICAL DAILY 07/21/21 [History Confirmed 09/15/21] duloxetine 60 mg capsule,delayed release 60 mg PO QHS #90 cap 08/10/21 [Rx Confirmed 09/15/21] Is last menstrual period known: No Post menopausal: Yes Patient : No PFSH Medical History Arthritis Former smoker GERD (gastroesophageal reflux disease) High cholesterol History of blood clots Osteoarthritis Surgical History History of cwldt-opsmn-czfvove bypass History of carotid endarterectomy History of cataract surgery History of extraction of renal calculus History of hip replacement History of knee replacement History of renal stent History of toe surgery Family History Mother Arthritis CVA (cerebral vascular accident) Father Myocardial infarction Heart disease Hypertension High cholesterol Social History Smoking Status: Former smoker Tobacco: How many years used: 40 Electronic Cigarette Use: not used how long ago did patient quit smokin years ago second hand exposure: No alcohol intake: current alcohol intake frequency: holidays/special occasions only substance use type: does not use HPI HPI HPI: TREY CALVERT, is a 76 F who presents to the office today for an update history and physical for a screening colonoscopy. Patient was scheduled in June for a screneing colonoscopy. Patient did develop COVID despite being vaccinated and had to cancel her procedure. Patient notes she was in and out of the hospital multiple times for shortness of breath. She has continued to work with Dr. Callahan to come completely off of oxygen. She only uses oxygen at night time. She only notes shortness of breath walking up an incline. She denies chest pain. She has had multiple previous colonoscopies with no concerns or complications. She denies family history of colon cancer. She denies any change in bowel habits. Patient's previous history per Dr. Campoverde: TREY CALVERT, is a 76 F who presents to the office today for surgical consul tation regarding a screening colonoscopy. The patient is referred by Dr. Marcelo Borges and a written copy my surgical consult recommendations were returned to him. My most recent interaction with her was December 15, 2016 where I performed a right lower extremity arteriogram but because of her aortic bypass graft I did not have access to attempt any intervention. The images were performed to assist with evaluation prior to a toe amputation. On this presentation she is very pleased with herself because she has been off of tobacco now for multiple years. She is very pleased with herself. She has had a history of at least 3 previous colonoscopies. On the first 2 colonoscopies she states polyps were removed. On the most recent one 10 years ago 2010 she did not have any polyps. She denies any family history of colon cancer. She otherwise however is enjoying a very high quality of life. No bright red blood per rectum no melena. She has not had COVID-19. She has received the vaccinations. ROS General General: Yes fatigue; No weight change, appetite, colon cancer, breast cancer or weakness HEENT HEENT: No difficulty swallowing, eye injury, eye surgery, swollen glands or maria antonia rseness Endo Endocrine: No thyroid disease, diabetes mellitus, thyroid cancer, Hair loss, heat intolerance or cold intolerance Skin Skin: No rash or changing moles Musc Musculoskeletal: Yes back problems and arthritis; No rheumatoid arthritis, gout or joint pain Cardio Cardiovascular: Yes high blood pressure; No murmur, pacemaker, heart disease, atrial fibrillation, heart attack, heart stent, palpitations, shortness of breat with exertion or chest pain Psych Psychiatric: No depression, anxiety or hearing voices Resp Respiratory: No shortness of breath, No sleep apnea, No cough, No COPD, No ast hma, No emphysema and No wheezing Gastro Gastrointestinal: No abdominal pain, No nausea or vomiting, No diarrhea, No constipation, No blood in stool, Yes acid reflux, No hemorrhoids, No ulcers, No gallbladder problem and No black,tarry stools Travis Hematologic: Yes blood thinners, No blood disorders, No bleeding, No anemia and No blood clots Neuro Neurologic: No weakness Exam Const General: cooperative, healthy appearing and comfortable [facility] Head: normal to inspection Eyes General: appearance normal, both eyes and all related structures Neck Neck: normal visual inspection Neck mass: No Resp Effort & Inspection: normal respiratory effort Auscultation: clear to auscultation bilaterally Cardio Rate: regular rate Rhythm: regular rhythm GI Inspection: normal to inspection Palpation: soft Auscultation: normal bowel sounds Skin General: no rashes or lesions noted Neuro General: no focal motor deficits and CN's II-XI intact bilaterally Extrem General: normal to inspection Psych Appearance: grossly normal Affect: normal affect COVID (Procedure Consent) Procedure Criteria Procedure Criteria: Yes Elective The surgeon/proceduralist and patient have discussed in detail the risk of exposure to and/or potential harm posed by the COVID-19 virus with having a surgery/procedure at this time versus the risk of delaying the surgery/procedure. It is not possible to know either the risk of delaying the surgery or procedure or chance of getting an infection with perfect accuracy, but a joint decision was made between the patient and the surgeon/proceduralist to proceed at this time with the scheduled surgery/procedure as indicated on the consent form. Assessment and Plan Assessment and Plan (1) Personal history of colonic polyps: Status: Acute Plan - Thelma HO, PAKushC: Dr. Campoverde will plan to perform a colonoscopy with possible biopsy or polypectomy. Procedure details, risks and benefits have been explained. Patient has had the opportunity to ask and have questions answered. Patient verbally understands and agrees with the plan. Patient will hold her aspirin 5 days prior to the procedure. Plan for MAC anesthesia. I have re-examined the patient. There are no clinical changes since date of exam. Eric Campoverde M.D., F.A.C.S.
[2021-09-21] MEDS: Lactated Ringers 1,000 ML 100 ML IV (08:15)
--- NOTE | 2021-09-21 09:22 | OP.COLON_ITS ---
Patient Name: Joyce Hurst Procedure Date: 09/21/2021 8:44 AM Date of : 1945 Age: 76 Procedure: Colonoscopy Indications: High risk colon cancer surveillance: Personal history of colonic polyps Providers: Eric Campoverde MD Medicines: See the Anesthesia note for documentation of the administered medications Patient Profile: Last Colonoscopy: 2010. Complications: No immediate complications. Procedure: Pre-Anesthesia Assessment: - Prior to the procedure, a History and Physical was performed, and patient medications and allergies were reviewed. The patient's tolerance of previous anesthesia was also reviewed. The risks and benefits of the procedure and the sedation options and risks were discussed with the patient. All questions were answered, and informed consent was obtained. Prior Anticoagulants: The patient has taken no previous anticoagulant or antiplatelet agents. ASA Grade Assessment: III - A patient with severe systemic disease. After reviewing the risks and benefits, the patient was deemed in satisfactory condition to undergo the procedure. After I obtained informed consent, the scope was passed under direct vision. Throughout the procedure, the patient's blood pressure, pulse, and oxygen saturations were monitored continuously. The Colonoscope was introduced through the anus and advanced to the cecum, identified by appendiceal orifice and ileocecal valve. The colonoscopy was performed with moderate difficulty due to a tortuous colon. Successful completion of the procedure was aided by applying abdominal pressure. The patient tolerated the procedure well. The quality of the bowel preparation was fair. The ileocecal valve and the appendiceal orifice were photographed. Scope In: 8:55:54 AM Scope Withdrawal Time 0 hours 7 minutes 39 seconds Scope Out: 9:16:41 AM Total Procedure Duration Time 0 hours 20 minutes 47 seconds Findings: The digital rectal exam findings include non-thrombosed external hemorrhoids, non-thrombosed internal hemorrhoids and internal hemorrhoids that prolapse with straining, but spontaneously regress to the resting position (Grade II). Multiple diverticula were found in the sigmoid colon and descending colon. The colon (entire examined portion) was moderately tortuous. Advancing the scope required changing the patient to a supine position and using manual pressure. Impression: - Preparation of the colon was fair. - Non-thrombosed external hemorrhoids, non-thrombosed internal hemorrhoids and internal hemorrhoids that prolapse with straining, but spontaneously regress to the resting position (Grade II) found on digital rectal exam. - Diverticulosis in the sigmoid colon and in the descending colon. - Tortuous colon. - No specimens collected. Recommendation: - Discharge patient to home. - Resume previous diet. - Continue present medications. - Repeat colonoscopy is not recommended due to current age (66 years or older) for screening purposes. Procedure Code(s): --- Professional --- 06484, Colonoscopy, flexible; diagnostic, including collection of specimen(s) by brushing or washing, when performed (separate procedure) Diagnosis Code(s): --- Professional --- Z86.010, Personal history of colonic polyps K64.1, Second degree hemorrhoids K64.4, Residual hemorrhoidal skin tags K57.30, Diverticulosis of large intestine without perforation or abscess without bleeding Q43.8, Other specified congenital malformations of intestine CPT copyright 2017 [employer]. All rights reserved. The codes documented in this report are preliminary and upon air quality manager review may be revised to meet current compliance requirements. Eric Campoverde MD 09/21/2021 9:21:38 AM This report has been signed electronically. Number of Addenda: 0 Note Initiated On: 09/21/2021 8:44 AM
--- NOTE | 2021-09-21 09:23 | OP.CCLET_ITS ---
09/21/2021 Marcelo Borges MD Re : Colonoscopy procedure for Joyce Hurst Dear Dr. Borges This procedure was performed on Tuesday, September 21, 2021. My impressions and recommendations are as follows: Impressions : - Preparation of the colon was fair. - Non-thrombosed external hemorrhoids, non-thrombosed internal hemorrhoids and internal hemorrhoids that prolapse with straining, but spontaneously regress to the resting position (Grade II) found on digital rectal exam. - Diverticulosis in the sigmoid colon and in the descending colon. - Tortuous colon. - No specimens collected. Recommendations : - Discharge patient to home. - Resume previous diet. - Continue present medications. - Repeat colonoscopy is not recommended due to current age (66 years or older) for screening purposes. My findings are described in the full procedure note, which is enclosed. If I can be of further assistance, please feel free to contact me at Doctor phone number(s): Work: . Sincerely, Eric Campoverde MD 09/21/2021 9:21:38 AM This report has been signed electronically.
== END 2021-09-21 10:28 ==
LOC: EN 07:28 → AC 07:30
PROVIDERS: PCP Family Medicine; Referring Provider Family Medicine; Visit Provider Surgery
PROC: 0DJD8ZZ Inspection of Lower Intestinal Tract, Via Natural or Artificial Opening Endoscopic (ICD-10-PCS; CPT 45378; principal; 2021-09-21 08:25)
DX: K57.30 Diverticulosis of large intestine without perforation or abscess without bleeding (principal); K64.1 Second degree hemorrhoids; K64.4 Residual hemorrhoidal skin tags; Z86.010 Personal history of colon polyps; Q43.8 Other specified congenital malformations of intestine; I10 Essential (primary) hypertension; M19.90 Unspecified osteoarthritis, unspecified site; K21.9 Gastro-esophageal reflux disease without esophagitis; E78.00 Pure hypercholesterolemia, unspecified; Z87.442 Personal history of urinary calculi; Z86.718 Personal history of other venous thrombosis and embolism; Z79.82 Long term (current) use of aspirin; Z79.899 Other long term (current) drug therapy; Z87.891 Personal history of nicotine dependence
CPT/HCPCS: 45378; J7120; J2405

== ENCOUNTER 2021-12-07 09:34 | Outpatient (CLI) | payer MEDICARE, SELFPAY ==
[2021-12-09 14:10] LABS: Albumin 3.7 g/dL (2.9-4.4); Alpha-1-Globulins 0.3 g/dL (0.0-0.4); Alpha-2-Globulins 0.9 g/dL (0.4-1.0); Gamma Globulin 1.1 g/dL (0.4-1.8); Immunoglobulin A 178 mg/dL (64-422); Immunoglobulin G 862 mg/dL (586-1602); Immunoglobulin M 311 mg/dL (26-217); PROEL- TOTAL PROTEIN 7.2 g/dL (6.0-8.5)
[2021-12-09 21:44] LABS: Immunofixation Urine Comment: (.)
== END 2021-12-07 23:59 | disposition short-term general hospital (02) ==
LOC: MTLAB 09:36
PROVIDERS: PCP Family Medicine; Referring Provider Nurse Practitioner Family; Visit Provider Nurse Practitioner Family
DX: G62.9 Polyneuropathy, unspecified (principal)
CPT/HCPCS: 36415; 82784; 84165; 86334; 86335

== ENCOUNTER → 2022-10-20 | Outpatient (CLI) | payer MEDICARE, SELFPAY | END | disposition home or self-care (01) | LOC: LAB 11:40 | PROVIDERS: PCP Family Medicine; Visit Provider Psychiatry & Neurology Neurology | DX: G62.9 Polyneuropathy, unspecified (principal) | CPT/HCPCS: 36415; 82784; 84165; 86334; 86335 ==

== ENCOUNTER → 2023-03-28 | Outpatient (CLI) | payer MEDICARE, SELFPAY ==
[2023-03-30 15:09] LABS: Albumin 3.2 g/dL (2.9-4.4); Alpha-1-Globulins 0.3 g/dL (0.0-0.4); Gamma Globulin 1.1 g/dL (0.4-1.8); IMMUNOFIXATION RESULT,S Comment: (.); Immunoglobulin A 193 mg/dL (64-422); Immunoglobulin G 861 mg/dL (586-1602); Immunoglobulin M 267 mg/dL (26-217); PROEL- TOTAL PROTEIN 6.8 g/dL (6.0-8.5)
== END | disposition home or self-care (01) ==
LOC: MTLAB 08:57
PROVIDERS: PCP Family Medicine; Referring Provider Psychiatry & Neurology Neurology; Visit Provider Psychiatry & Neurology Neurology
DX: G62.9 Polyneuropathy, unspecified (principal)
CPT/HCPCS: 36415; 82784; 84165; 86334; 86335

== ENCOUNTER → 2023-09-25 | Outpatient (CLI) | payer MEDICARE, SELFPAY ==
[2023-09-25 11:00] LABS: Hemoglobin A1c 5.4 % (3.8-5.6)
[2023-09-26 15:08] LABS: Albumin 3.7 g/dL (2.9-4.4); Alpha-1-Globulins 0.3 g/dL (0.0-0.4); Alpha-2-Globulins 0.9 g/dL (0.4-1.0); Free Lambda Light Chains 28.6 mg/L (5.7-26.3); Immunoglobulin A 240 mg/dL (64-422); Immunoglobulin G 831 mg/dL (586-1602); Immunoglobulin M 260 mg/dL (26-217); PROEL- TOTAL PROTEIN 7.1 g/dL (6.0-8.5)
== END | disposition home or self-care (01) ==
LOC: MTLAB 08:46
PROVIDERS: PCP Family Medicine; Referring Provider Psychiatry & Neurology Neurology; Visit Provider Psychiatry & Neurology Neurology
DX: G62.9 Polyneuropathy, unspecified (principal); R73.9 Hyperglycemia, unspecified
CPT/HCPCS: 36415; 82784; 83036; 83883; 84165; 86334

== ENCOUNTER 2023-11-09 13:56 | Emergency (ER) | payer MEDICARE, SELFPAY ==
[2023-11-09 13:58] VITALS: BP 154/93; PULSE 79; RESP 14; TEMP 36.8; O2SAT 96; BMI 35.9
--- OUTSIDE RECORDS SUMMARY | 2023-11-09 16:39 | XMS RPT_ITS | CCD ---
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 Name Role Phone Kaelyn Meneses LPN Unavailable Unavailab Kaelyn Cook LPN Unavailable Unavailab atul Acosta MD, Marcelo Soto Primary Care Provider Ellyn CHASE, Marcelo S Unavailable Marcelo Acosta MD Primary Care Provider Ellyn CHASE, Marcelo S Unavailable Karla CHASE, Marcelo A Primary Care Provider Ellyn CHASE, Marcelo S Unavailable Karla CHASE, Marcelo A Primary Care Provider Ellyn CHASE, Marcelo S Unavailable Ellyn CHASE, Marcelo S Unavailable MARCELO ACOSTA Primary Care Unavailable MARCELO ACOSTA Attending Unavailable KARLA, MARCELO A Primary Care Unavailable KARLA, MARCELO A Referring Unavailable LYDEN, KETAN P Attending Unavailable KARLA, MARCELO A Primary Care Unavailable LYDEN, KETAN P Referring Unavailable KARLA, MARCELO A Primary Care Unavailable LYDEN, KETAN P Referring Unavailable KARLA, MARCELO A Primary Care Unavailable KARLA, MARCELO A Primary Care Unavailable MAUREEN WEATHERS Attending Unavailable MAUREEN WEATHERS Referring Unavailable MAUREEN WEATHERS Referring Unavailable KARLA, MARCELO A Primary Care Unavailable KARLA, MARCELO A Primary Care Unavailable TAYLOR CHAVEZ Attending Unavailable TAYLOR CHAVEZ Referring Unavailable KARLA, MARCELO A Primary Care Unavailable TAYLOR CHAVEZ Referring Unavailable KARLA, MARCELO A Primary Care Unavailable MARCELO ACOSTA Referring Unavailable MARCELO ACOSTA Referring Unavailable MARCELO ACOSTA Primary Care Unavailable BRIANNA PATEL Referring Unavailable MARCELO ACOSTA Primary Care Unavailable MARCELO ACOSTA Attending Unavailable MARCELO ACOSTA Referring Unavailable MARCELO ACOSTA Primary Care Unavailable BRIANNA PATEL Attending Unavailable MARCELO ACOSTA Primary Care Unavailable Allergies Allergy Classification Reported Allergen(s) Allergy Type Date of Onset Reaction(s) Facility (20 sources) atorvastatin; Translations: [ATORVASTATIN CALCIUM] Drug Allergy 09-06-2005 Intolerance, GI Upset [facility] Work Phone: (20 sources) Cefaclor; Translations: [CEFACLOR] Drug Allergy 07-12-2005 Other: See Comments [facility] Work Phone: (20 sources) Doxycycline; Translations: [DOXYCYCLINE] Drug Allergy 09-14-2011 GI Upset [facility] Work Phone: (20 sources) Grass pollen; Translations: [GRASS POLLEN] Drug Allergy 10-07-2013 Itching [facility] Work Phone: (20 sources) Meperidine; Translations: [MEPERIDINE (PF)] Drug Allergy 06-29-2007 Swelling [facility] Work Phone: (20 sources) POISON ADELAIDE EXTRACT; Translations: [POISON ADELAIDE] Drug Allergy 07-12-2005 Hives [facility] Work Phone: (20 sources) Lisinopril; Translations: [LISINOPRIL] Drug Allergy 10-03-2022 GI [facility] Work Phone: Medications Current Medications Medication Drug Class(es) Dates Sig (Normalized) Sig (Original) amoxicillin 875 mg / clavulanate 125 mg oral tablet (7 sources) Penicillin-class Antibacterial Start: 12-30-2022 End: 01-06-2023 take 1 tablet by mouth twice daily amoxicillin-clav ulanic acid (AUGMENTIN) 875-125 mg per tablet Indications: Bacterial sinusitis Take 1 tablet by mouth twice daily for 7 days. 14 tablet 0 12/30/2022 01/06/2023 Active Completed/Discontinued Medications Medication Drug Class(es) Dates Sig (Normalized) Sig (Original) albuterol 0.83 mg/ml inhalation solution (20 sources) beta2-Adrenergic Agonist Start: 08-27-2021 albuterol (PROVENTIL) 2.5 mg /3 mL (0.083 %) nebulizer solution Indications: Shortness of breath , Oxygen dependent , Post-COVID syndrome , Pneumonia due to COVID-19 virus , Dyspnea on exertion Use 3 mL via nebulizer every 4 hours as needed for wheezing/shortness of breath. Use over 5-15minutes. 100 mL 2 08/27/2021 Active Problems Active Problems Problem Classification Problem Date Documented Date Episodic/Chronic Deficiency and other anemia (1 source) Increased hemoglobin; Translations: [Other hemoglobinopathies] Chronic Disorders of lipid metabolism (20 sources) Mixed hyperlipidemia; Translations: [Mixed hyperlipidemia] Onset: 09-30-2015 09-30-2015 Chronic Esophageal disorders (20 sources) Gastroesophageal reflux disease without esophagitis; Translations: [Gastro-esophageal reflux disease without esophagitis] Onset: 07-03-2015 07-03-2015 Chronic Essential hypertension (20 sources) Essential hypertension; Translations: [Essential (primary) hypertension] Onset: 02-25-2016 02-25-2016 Chronic Fluid and electrolyte disorders (8 sources) Hypokalemia; Translations: [Hypokalemia] Episodic Gastritis and duodenitis (1 source) Acute gastritis; Translations: [Acute gastritis without bleeding] Episodic Immunizations and screening for infectious disease (2 sources) Vaccination needed; Translations: [Encounter for immunization] Episodic Mood disorders (20 sources) Depressive disorder; Translations: [Depression] Onset: 02-25-2016 02-25-2016 Chronic Occlusion or stenosis of precerebral arteries (20 sources) Bilateral stenosis of carotid arteries; Translations: [Occlusion and stenosis of bilateral carotid arteries] Onset: 12-09-2019 06-17-2020 Chronic Osteoarthritis (20 sources) Degenerative joint disease involving multiple joints; Translations: [Polyosteoarthritis, unspecified] Onset: 11-02-2012 08-26-2016 Chronic Other and unspecified benign neoplasm (20 sources) History of polyp of colon; Translations: [Personal history of colonic polyps] 11-09-2021 Episodic Other bone disease and musculoskeletal deformities (1 source) Other specified disorders of bone density and structure, unspecified site; Translations: [Osteopenia, unspecified location] Onset: 08-30-2023 Episodic Other ear and sense organ disorders (1 source) Acute otitis externa of right ear; Translations: [Unspecified acute noninfective otitis externa, right ear] Episodic Other ear and sense organ disorders (1 source) Otalgia, right ear; Translations: [Otalgia, unspecified] Episodic Other ear and sense organ disorders (1 source) Impacted cerumen in right ear; Translations: [Impacted cerumen, right ear] Episodic Other hereditary and degenerative nervous system conditions (20 sources) Restless legs; Translations: [Restless legs syndrome] Onset: 03-01-2013 03-06-2015 Chronic Other infections; including parasitic (2 sources) Post-viral disorder; 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 Other injuries and conditions due to external causes (1 source) Muscle strain; Translations: [Other injury of unspecified body region, initial encounter] Episodic Other lower respiratory disease (2 sources) Multiple nodules of lung; Translations: [Other nonspecific abnormal finding of lung field] Episodic Other lower respiratory disease (1 source) Other nonspecific abnormal finding of lung field; Translations: [Lung nodules] Onset: 11-07-2023 Episodic Other nervous system disorders (20 sources) Polyneuropathy; Translations: [Polyneuropathy, unspecified] Onset: 12-17-2020 02-09-2021 Chronic Other non-traumatic joint disorders (1 source) Arthralgia of the upper arm; Translations: [Pain in right elbow] Episodic Other nutritional; endocrine; and metabolic disorders (20 sources) Obesity; Translations: [Obesity, unspecified] Onset: 03-17-2014 03-06-2015 Chronic Other nutritional; endocrine; and metabolic disorders (1 source) Hypercalcemia; Translations: [Hypercalcemia] Chronic Other nutritional; endocrine; and metabolic disorders (1 source) Obesity caused by energy imbalance; Translations: [Other obesity due to excess calories] 08-30-2023 Chronic Other screening for suspected conditions (not mental disorders or infectious disease) (2 sources) Encounter for screening mammogram for malignant neoplasm of breast; Translations: [Encounter for screening mammogram for malignant neoplasm of breast] Onset: 10-03-2023 Episodic Other skin disorders (1 source) Inflamed seborrheic keratosis; Translations: [Inflamed seborrheic keratosis] Episodic Other upper respiratory disease (1 source) Pain in throat; Translations: [Pain in throat] Episodic Other upper respiratory infections (1 source) Bacterial sinusitis; Translations: [Chronic sinusitis, unspecified] Chronic Other upper respiratory infections (5 sources) Acute sinusitis; Translations: [Sinusitis] Onset: 04-17-2017 04-17-2017 Episodic Otitis media and related conditions (1 source) Acute right otitis media; Translations: [Otitis media, unspecified, right ear] Episodic Peripheral and visceral atherosclerosis (20 sources) Peripheral vascular disease; Translations: [Peripheral vascular disease, unspecified] Onset: 10-17-2016 09-22-2017 Chronic Respiratory failure; insufficiency; arrest (adult) (20 sources) 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 oxygen therapy; Translations: [Dependence on supplemental oxygen] Onset: 02-23-2022 Chronic Spondylosis; intervertebral disc disorders; other back problems (20 sources) Lumbar arthritis; Translations: [Spondylosis without myelopathy or radiculopathy, lumbar region] Onset: 06-04-2018 06-04-2018 Chronic Unclassified (1 source) APPOINTMENT CANCELLED Past or Other Problems Problem Classification Problem Date Documented Date Episodic/Chronic Calculus of urinary tract (20 sources) Kidney stone; Translations: [Calculus of kidney] Onset: 10-07-2013 12-30-2020 Episodic Diabetes mellitus without complication (20 sources) High hemoglobin A1c level; Translations: [Other abnormal glucose] Onset: 12-30-2020 02-09-2021 Episodic Genitourinary symptoms and ill-defined conditions (20 sources) Proteinuria; Translations: [Proteinuria, unspecified] Onset: 08-18-2016 08-18-2016 Episodic Other acquired deformities (20 sources) Acquired deformity of ankle AND/OR foot; Translations: [Unspecified acquired deformity of unspecified lower leg] Onset: 09-10-2009 08-26-2016 Episodic Other aftercare (20 sources) Drug therapy finding; Translations: [Other intermediate card tender (current) drug therapy] Onset: 03-27-2017 09-22-2017 Episodic Other aftercare (20 sources) Patient encounter status; Translations: [Other intermediate card tender (current) drug therapy] Onset: 06-17-2020 06-17-2020 Episodic Other aftercare (1 source) Other intermediate card tender (current) drug therapy; Translations: [Medication management] Onset: 06-17-2020 Episodic Other bone disease and musculoskeletal deformities (20 sources) Osteopenia; Translations: [Other specified disorders of bone density and structure, unspecified site] Onset: 09-14-2010 09-29-2017 Episodic Other connective tissue disease (20 sources) History of polymyalgia rheumatica; Translations: [Personal history of other diseases of the musculoskeletal system and connective tissue] Onset: 03-21-2011 06-17-2020 Episodic Other hematologic conditions (20 sources) Secondary polycythemia; Translations: [Secondary polycythemia] Onset: 03-14-2012 03-06-2015 Episodic Other hematologic conditions (1 source) Secondary polycythemia; Translations: [Polycythemia, secondary] Onset: 02-28-2023 Episodic Other infections; including parasitic (20 sources) Personal history of other infectious and parasitic diseases; Translations: [History of 2019 novel coronavirus disease (COVID-19)] Onset: 07-22-2020 07-22-2020 Episodic Other skin disorders (20 sources) Nail deformity; Translations: [Other nail disorders] Onset: 02-23-2022 Episodic Residual codes; unclassified (20 sources) Active advance directive (copy within chart) ; Translations: [Other specified health status] Onset: 02-23-2022 Episodic Residual codes; unclassified (20 sources) Active living will ; Translations: [Other specified health status] Onset: 01-08-2023 01-08-2023 Episodic Screening and history of mental health and substance abuse codes (20 sources) Ex-smoker; Translations: [Personal history of nicotine dependence] Onset: 07-07-2006 11-08-2021 Episodic Spondylosis; intervertebral disc disorders; other back problems (20 sources) Chronic low back pain; Translations: [Lumbago with sciatica, left side] Onset: 06-18-2018 12-04-2018 Episodic Urinary tract infections (20 sources) Recurrent urinary tract infection; Translations: [Urinary tract infection, site not specified] Onset: 12-30-2020 12-30-2020 Episodic Viral infection (20 sources) Disease caused by 2019-nCoV; Translations: [COVID-19] Onset: 07-21-2021 07-21-2021 Episodic Results Test Name Value Interpretation Reference Range Facil ity Vital Signs Date Time Vital Sign Value Performing Clinician Faci lity 10-03-2023 16:02-0500 Body height 142.2 cm Taylor Chavez APRN.COMPUTED TOMOGRAPHY TECHNOLOGIST Work Phone: [facility] 10-03-2023 16:02-0500 Body weight 74.21 kg Taylor Chavez APRN.COMPUTED TOMOGRAPHY TECHNOLOGIST Work Phone: [facility] 10-03-2023 16:02-0500 Diastolic blood pressure 76 mm[Hg] Taylor Chavez APRN.COMPUTED TOMOGRAPHY TECHNOLOGIST Work Phone: [facility] 10-03-2023 16:02-0500 Systolic blood pressure 128 mm[Hg] Taylor Chavez APRN.COMPUTED TOMOGRAPHY TECHNOLOGIST Work Phone: [facility] 08-30-2023 09:52-0400 Body weight 73.48 kg Marcelo Acosta MD Work Phone: [facility] 08-30-2023 09:52-0400 Diastolic blood pressure 74 mm[Hg] Marcelo Acosta MD Work Phone: [facility] 08-30-2023 09:52-0400 Heart rate 64 /min Marcelo Acosta MD Work Phone: [facility] 08-30-2023 09:52-0400 Respiratory rate 18 /min Marcelo Acosta MD Work Phone: [facility] 08-30-2023 09:52-0400 Systolic blood pressure 136 mm[Hg] Marcelo Acosta MD Work Phone: [facility] 02-27-2023 09:06-0400 Body height 142 cm Brianna Patel PA-C Work Phone: [facility] 02-27-2023 09:06-0400 Body temperature 98.6 [degF] Brianna Patel PA-C Work Phone: [facility] 02-27-2023 09:06-0400 Body weight 73.03 kg Brianna Patel PA-C Work Phone: [facility] 02-27-2023 09:06-0400 Diastolic blood pressure 70 mm[Hg] Brianna Patel PA-C Work Phone: [facility] 02-27-2023 09:06-0400 Heart rate 74 /min Brianna Patel PA-C Work Phone: [facility] 02-27-2023 09:06-0400 Respiratory rate 18 /min Brianna Patel PA-C Work Phone: [facility] 02-27-2023 09:06-0400 Systolic blood pressure 120 mm[Hg] Brianna Patel PA-C Work Phone: [facility] 12-30-2022 10:50-0500 Body temperature 98.1 [degF] Boy Ronnie SIDE PULLER.COMPUTED TOMOGRAPHY TECHNOLOGIST Work Phone: [facility] 12-30-2022 10:50-0500 Body weight 73.75 kg Boy Trujillo SIDE PULLER.COMPUTED TOMOGRAPHY TECHNOLOGIST Work Phone: [facility] 12-30-2022 10:50-0500 Diastolic blood pressure 70 mm[Hg] Boy Trujillo SIDE PULLER.COMPUTED TOMOGRAPHY TECHNOLOGIST Work Phone: [facility] 12-30-2022 10:50-0500 Heart rate 88 /min Boy Ronnie SIDE PULLER.COMPUTED TOMOGRAPHY TECHNOLOGIST Work Phone: [facility] 12-30-2022 10:50-0500 Respiratory rate 16 /min Boy Trujillo SIDE PULLER.COMPUTED TOMOGRAPHY TECHNOLOGIST Work Phone: [facility] 12-30-2022 10:50-0500 SaO2% (BldA) [Mass fraction] 97 % Boy Trujillo SIDE PULLER.COMPUTED TOMOGRAPHY TECHNOLOGIST Work Phone: [facility] 12-30-2022 10:50-0500 Systolic blood pressure 146 mm[Hg] Boy Ronnie SIDE PULLER.COMPUTED TOMOGRAPHY TECHNOLOGIST Work Phone: [facility] 12-26-2022 14:16-0500 Diastolic blood pressure 62 mm[Hg] Ketan Saha MD Work Phone: [facility] 12-26-2022 14:16-0500 Heart rate 63 /min Ketan Saha MD Work Phone: [facility] 12-26-2022 14:16-0500 Systolic blood pressure 152 mm[Hg] Ketan Saha MD Work Phone: [facility] 11-10-2022 09:02-0500 Body height 144.8 cm Maureen Marco PA-C Work Phone: [facility] 11-10-2022 09:02-0500 Body temperature 97.11 [degF] Maureen Marco PA-C Work Phone: [facility] 11-10-2022 09:02-0500 Body weight 74.39 kg Maureen Marco PA-C Work Phone: [facility] 11-10-2022 09:02-0500 Diastolic blood pressure 74 mm[Hg] Maureen Marco PA-C Work Phone: [facility] 11-10-2022 09:02-0500 Heart rate 74 /min Maureen Marco PA-C Work Phone: [facility] 11-10-2022 09:02-0500 Respiratory rate 16 /min Maureen Marco PA-C Work Phone: [facility] 11-10-2022 09:02-0500 SaO2% (BldA) [Mass fraction] 97 % Maureen Marco PA-C Work Phone: [facility] 11-10-2022 09:02-0500 Systolic blood pressure 142 mm[Hg] Maureen Marco PA-C Work Phone: [facility] 10-31-2022 10:23-0500 Body temperature 100.99 [degF] Radha Jett APRN.COMPUTED TOMOGRAPHY TECHNOLOGIST Work Phone: [facility] 10-31-2022 10:23-0500 Body weight 74.84 kg Radha Jett APRN.COMPUTED TOMOGRAPHY TECHNOLOGIST Work Phone: [facility] 10-31-2022 10:23-0500 Diastolic blood pressure 78 mm[Hg] Radha Jett APRN.COMPUTED TOMOGRAPHY TECHNOLOGIST Work Phone: [facility] 10-31-2022 10:23-0500 Heart rate 97 /min Radha Jett SIDE PULLER.COMPUTED TOMOGRAPHY TECHNOLOGIST Work Phone: [facility] 10-31-2022 10:23-0500 Respiratory rate 16 /min Radha Jett SIDE PULLER.COMPUTED TOMOGRAPHY TECHNOLOGIST Work Phone: [facility] 10-31-2022 10:23-0500 SaO2% (BldA) [Mass fraction] 96 % Radha Jett SIDE PULLER.COMPUTED TOMOGRAPHY TECHNOLOGIST Work Phone: [facility] 10-31-2022 10:23-0500 Systolic blood pressure 140 mm[Hg] Radha Jett SIDE PULLER.COMPUTED TOMOGRAPHY TECHNOLOGIST Work Phone: [facility] 10-10-2022 11:12-0500 Body temperature 98.1 [degF] Orlando Galvan MD Work Phone: [facility] 10-10-2022 11:12-0500 Body weight 74.84 kg Orlando Galvan MD Work Phone: [facility] 10-10-2022 11:12-0500 Diastolic blood pressure 80 mm[Hg] Orlando Galvan MD Work Phone: [facility] 10-10-2022 11:12-0500 Heart rate 88 /min Orlando Galvan MD Work Phone: [facility] 10-10-2022 11:12-0500 Respiratory rate 16 /min Orlando Galvan MD Work Phone: [facility] 10-10-2022 11:12-0500 SaO2% (BldA) [Mass fraction] 96 % Orlando Galvan MD Work Phone: [facility] 10-10-2022 11:12-0500 Systolic blood pressure 144 mm[Hg] Orlando Galvan MD Work Phone: [facility] 10-03-2022 07:53-0500 Body temperature 97.59 [degF] Brianna Patel PA-C Work Phone: [facility] 10-03-2022 07:53-0500 Body weight 74.84 kg Brianna Patel PA-C Work Phone: [facility] 10-03-2022 07:53-0500 Diastolic blood pressure 68 mm[Hg] Brianna HO-C Work Phone: [facility] 10-03-2022 07:53-0500 Heart rate 72 /min Brianna Patel PA-C Work Phone: [facility] 10-03-2022 07:53-0500 Respiratory rate 18 /min Brianna Patel PA-C Work Phone: [facility] 10-03-2022 07:53-0500 Systolic blood pressure 130 mm[Hg] Brianna Patel PA-C Work Phone: [facility] 09-08-2022 10:56-0400 Body height 139.7 cm Radha Zursusan SIDE PULLER.COMPUTED TOMOGRAPHY TECHNOLOGIST Work Phone: [facility] 09-08-2022 10:56-0400 Body weight 76.2 kg Radha Zursusan SIDE PULLER.COMPUTED TOMOGRAPHY TECHNOLOGIST Work Phone: [facility] 09-08-2022 10:56-0400 Diastolic blood pressure 64 mm[Hg] Radha Zurawick SIDE PULLER.COMPUTED TOMOGRAPHY TECHNOLOGIST Work Phone: [facility] 09-08-2022 10:56-0400 Heart rate 79 /min Radha Fozia SIDE PULLER.COMPUTED TOMOGRAPHY TECHNOLOGIST Work Phone: [facility] 09-08-2022 10:56-0400 SaO2% (BldA) [Mass fraction] 96 % Radha Zurawick SIDE PULLER.COMPUTED TOMOGRAPHY TECHNOLOGIST Work Phone: [facility] 09-08-2022 10:56-0400 Systolic blood pressure 154 mm[Hg] Radha Zurawick SIDE PULLER.COMPUTED TOMOGRAPHY TECHNOLOGIST Work Phone: [facility] 05-23-2022 15:38-0400 Body temperature 98.6 [degF] Jodie Shine PA-C Work Phone: [facility] 05-23-2022 15:38-0400 Body weight 76.66 kg Jodie Athy PA-C Work Phone: [facility] 05-23-2022 15:38-0400 Diastolic blood pressure 74 mm[Hg] Jodie Athy PA-C Work Phone: [facility] 05-23-2022 15:38-0400 Heart rate 100 /min Jodie Athy PA-C Work Phone: [facility] 05-23-2022 15:38-0400 Respiratory rate 18 /min Jodie Athy PA-C Work Phone: [facility] 05-23-2022 15:38-0400 SaO2% (BldA) [Mass fraction] 97 % Jodie Athy PA-C Work Phone: [facility] 05-23-2022 15:38-0400 Systolic blood pressure 122 mm[Hg] Jodie Athy PA-C Work Phone: [facility] 04-18-2022 10:21-0400 Body weight 76.39 kg Mitesh Perez MD Work Phone: [facility] 04-18-2022 10:21-0400 Diastolic blood pressure 64 mm[Hg] Mitesh Perez MD Work Phone: [facility] 04-18-2022 10:21-0400 Heart rate 90 /min Mitesh Perez MD Work Phone: [facility] 04-18-2022 10:21-0400 Respiratory rate 16 /min Mitesh Perez MD Work Phone: [facility] 04-18-2022 10:21-0400 SaO2% (BldA) [Mass fraction] 92 % Mitesh Perez MD Work Phone: [facility] 04-18-2022 10:21-0400 Systolic blood pressure 128 mm[Hg] Mitesh Perez MD Work Phone: [facility] 04-09-2022 14:15-0400 Body temperature 98.6 [degF] Boy Trujillo APRN.CNP Work Phone: [facility] 04-09-2022 14:15-0400 Body weight 77.66 kg Boy Trujillo SIDE PULLER.COMPUTED TOMOGRAPHY TECHNOLOGIST Work Phone: [facility] 04-09-2022 14:15-0400 Diastolic blood pressure 66 mm[Hg] Boy Trujillo SIDE PULLER.COMPUTED TOMOGRAPHY TECHNOLOGIST Work Phone: [facility] 04-09-2022 14:15-0400 Heart rate 80 /min Boy Trujillo SIDE PULLER.COMPUTED TOMOGRAPHY TECHNOLOGIST Work Phone: [facility] 04-09-2022 14:15-0400 Respiratory rate 20 /min Boy Trujillo SIDE PULLER.COMPUTED TOMOGRAPHY TECHNOLOGIST Work Phone: [facility] 04-09-2022 14:15-0400 SaO2% (BldA) [Mass fraction] 96 % Boy Trujillo SIDE PULLER.COMPUTED TOMOGRAPHY TECHNOLOGIST Work Phone: [facility] 04-09-2022 14:15-0400 Systolic blood pressure 142 mm[Hg] Boy Trujillo SIDE PULLER.COMPUTED TOMOGRAPHY TECHNOLOGIST Work Phone: [facility] 03-31-2022 10:24-0400 Body temperature 98.4 [degF] Jodie Athy PA-C Work Phone: [facility] 03-31-2022 10:24-0400 Body weight 76.84 kg Jodie Athy PA-C Work Phone: [facility] 03-31-2022 10:24-0400 Diastolic blood pressure 80 mm[Hg] Jodie Athy PA-C Work Phone: [facility] 03-31-2022 10:24-0400 Heart rate 72 /min Jodie Athy PA-C Work Phone: [facility] 03-31-2022 10:24-0400 Respiratory rate 18 /min Jodie Athy PA-C Work Phone: [facility] 03-31-2022 10:24-0400 SaO2% (BldA) [Mass fraction] 97 % Jodie Athy PA-C Work Phone: [facility] 03-31-2022 10:24-0400 Systolic blood pressure 152 mm[Hg] Jodie Shine PA-C Work Phone: [facility] 02-23-2022 11:51-0400 Body height 142 cm Brianna Patel PA-C Work Phone: [facility] 02-23-2022 11:51-0400 Body temperature 98.4 [degF] Brianna Patel PA-C Work Phone: [facility] 02-23-2022 11:51-0400 Body weight 76.2 kg Brianna Patel PA-C Work Phone: [facility] 02-23-2022 11:51-0400 Diastolic blood pressure 80 mm[Hg] Brianna Patel PA-C Work Phone: [facility] 02-23-2022 11:51-0400 Heart rate 76 /min Brianna Patel PA-C Work Phone: [facility] 02-23-2022 11:51-0400 Respiratory rate 18 /min Brianna Patel PA-C Work Phone: [facility] 02-23-2022 11:51-0400 Systolic blood pressure 122 mm[Hg] Brianna Patel PA-C Work Phone: [facility] 04-17-2017 17:03-0400 BMI (Body Mass Index) 35.48 kg/m2 Kaelyn Meneses LPN [facility] Work Phone: 04-17-2017 17:03-0400 Body Temperature 98.9 [degF] Kaelyn Meneses LPN [facility] Work Phone: 04-17-2017 17:03-0400 Body weight 77.02 kg Kaelyn Meneses LPN [facility] [facility] Work Phone: 04-17-2017 17:03-0400 BP Diastolic 80 mm[Hg] Kaelyn Meneses LPN [facility] Work Phone: 04-17-2017 17:03-0400 BP Systolic 142 mm[Hg] Kaelyn Meneses LPN [facility] Work Phone: 04-17-2017 17:03-0400 Height 147.32 cm Kaelyn Meneses LPN [facility] Work Phone: 04-17-2017 17:03-0400 Pulse (Heart Rate) 96 /min Kaelyn Meneses LPN [facility] Work Phone: 04-17-2017 17:03-0400 Pulse Oximetry 95 % Kaelyn Meneses LPN [facility] Work Phone: 04-17-2017 17:03-0400 Respiratory Rate 16 /min Kaelyn Meneses LPN [facility] Work Phone: 04-17-2017 17:03-0400 Weight 77.02 kg Kaelyn Meneses LPN [facility] Work Phone: Encounters Encounter Date Encounter Type Care Provider Facility Start: 11-07-2023 End: 11-07-2023 ambulatory MAUREEN WEATHERS Facility:[facility] Start: 10-13-2023 Refill Brianna Bowling on PA-C Work Phone: [facility] [place] Procedures Date Procedure Procedure Detail Performing Clinician Start: 12-30-2022 ADE A MOLECULAR (POC) Ryanne Tobar APRN.COMPUTED TOMOGRAPHY TECHNOLOGIST Work Phone: Start: 11-03-2022 Ct thorax w/o contra st material Maureen MATOSC Work Phone: Start: 10-26-2022 PFIZER-BIONTECH COVI D-19 BIVALENT BOOSTER VACCINE, AGE 12+ YR Marcelo Acosta MD Work Phone: Start: 09-02-2022 Screening mammograph y bi 2-view breast inc cad Taylor Chavez APRN.COMPUTED TOMOGRAPHY TECHNOLOGIST Work Phone: Start: 04-17-2017 End: 04-17-2017 Documentation of current medications Kaelyn Meneses LPN Plan of Treatment Date Care Activity Detail Author Start: 02-27-2026 DIABETES SCREEN DIABETES SCREEN [facility] Start: 02-27-2026 Diabetes Screening Diabetes Screenin g [facility] Start: 08-25-2025 DIABETES SCREEN DIABETES SCREEN [facility] Start: 02-21-2025 DIABETES SCREEN DIABETES SCREEN [facility] Start: 10-03-2024 BP Controlled (<130/80) BP Con trolled (<130/80) [facility] Start: 08-30-2024 Annual PCP Team Residential Youth Counselor elizabeth Disease Visit Annual PCP Team Chronic Disease Visit [facility] Start: 07-29-2024 DIABETES SCREEN DIABETES SCREEN [facility] Start: 02-28-2024 ANNUAL PCP TEAM FRONT SIGHT ATTACHER ELIZABETH DISEASE VISIT ANNUAL PCP TEAM CHRONIC DISEASE VISIT [facility] Start: 02-28-2024 BP CONTROLLED (<130/80) BP CON TROLLED (<130/80) [facility] Start: 02-16-2024 End: 05-17-2024 CBC W Auto Differential panel - Blood CBC + DIFF Lab Routine Polycythemia, secondary Expected: 02/16/2024, Expires: 05/17/2024 [facility] Work Phone: Immunizations Immunization Date Immunization Notes Care Provider Fa [facility] 07-12-2023 respiratory syncytia l virus (RSV) vaccine, bivalent (ABRYSVO) Marcelo Acosta MD Work Phone: [facility] 07-03-2023 pneumococcal (PCV20) vaccine, 20 valent (PREVNAR 20) Marcelo Acosta MD Work Phone: [facility] 10-26-2022 COVID-19 booster vaccine, age 12+ yr, bivalent (PFIZER-BIONTECH) De Nurse Work Phone: [facility] 08-25-2022 influenza, high-dose , quadrivalent vaccine (FLUZONE HIGH DOSE QUADRIVALENT) Marcelo Acosta MD Work Phone: [facility] 08-25-2022 influenza virus vacc ine, unspecified formulation Marcelo Acosta MD Work Phone: [facility] 03-31-2022 COVID-19 original vaccine, age 12+ yr, monovalent (PFIZER-BIONTECH - JUDGE TOP) Brianna Patel PA-C Work Phone: [facility] 03-31-2022 COVID-19 vaccine, ag e 12+ yr (Responsys-Mister [employer] - [facility]) Brianna Patel PA-C Work Phone: [facility] 03-31-2022 pneumococcal polysaccharide vaccine, 23 valent Brianna Patel PA-C Work Phone: [facility] 08-27-2021 influenza, high-dose , quadrivalent vaccine (FLUZONE HIGH DOSE QUADRIVALENT) Goowy Work Phone: [facility] Work Phone: 12-30-2020 COVID-19 vaccine, ag e 12+ yr (Responsys-[employer] - [facility]) Boxeverleonardo Work Phone: [facility] Work Phone: 08-01-2020 zoster vaccine recombinant Brianna Patel PA-C Work Phone: [facility] 05-26-2020 zoster vaccine recombinant Cedrick R[employer] Lawyerlanie Work Phone: [facility] Work Phone: 04-27-2020 zoster vaccine recombinant Brianna Patel PA-C Work Phone: [facility] 08-27-2019 influenza, high dose seasonal, preservative-free Cedrick [employer] Work Phone: [facility] 09-06-2018 influenza, high dose seasonal, preservative-free Cedrick TestAlwaysFashionke Work Phone: [facility] 07-13-2017 influenza, high dose seasonal, preservative-free Cedrick Testrake Work Phone: [facility] 08-17-2016 influenza virus vacc ine, unspecified formulation Cedrick C-nario Work Phone: [facility] Work Phone: 03-06-2015 pneumococcal conjuga te vaccine, 13 valent Goowy Work Phone: [facility] Work Phone: 08-03-2014 influenza virus vacc ine, whole virus Cedrick Testrake Work Phone: [facility] 08-03-2014 indonesian encephaliti s vaccine MAVIS Patel PA-C Work Phone: [facility] 03-14-2013 pneumococcal polysaccharide vaccine, 23 valent Goowy Work Phone: [facility] 12-20-2011 zoster vaccine, live Cedrick C-nario Work Phone: [facility] 09-14-2010 influenza virus vacc ine, unspecified formulation Goowy Work Phone: [facility] Work Phone: 03-16-2010 pneumococcal polysaccharide vaccine, 23 valent Goowy Work Phone: [facility] 08-28-2009 influenza virus vacc ine, unspecified formulation Goowy Work Phone: [facility] 09-11-2008 influenza virus vacc ine, unspecified formulation Goowy Work Phone: [facility] 10-01-2007 influenza virus vacc ine, unspecified formulation Goowy Work Phone: [facility] Work Phone: 10-04-2006 influenza virus vacc ine, unspecified formulation Goowy Work Phone: [facility] Work Phone: 12-28-2004 tetanus and diphther ia toxoids, adsorbed, preservative free, for adult use (2 Lf of tetanus toxoid and 2 Lf of diphtheria toxoid) [employer]clin Work Phone: [facility] Work Phone: 01-16-1976 typhoid vaccine, unspecified formulation Goowy Work Phone: [facility] Work Phone: 10-21-1964 tetanus and diphther ia toxoids, adsorbed, preservative free, for adult use (2 Lf of tetanus toxoid and 2 Lf of diphtheria toxoid) Goowy Work Phone: [facility] Work Phone: Payers Date Payer Category Payer Medicare MMO MEDICARE MMO MEDADVANTAGE PPO [id number] 2021-Present [phone] [address] [place] [address] PPO [id number] 2021 Medicare MMO MEDICARE MMO MEDADVANTAGE PPO [id number] 2021-Present [phone] [address] [place] [address] PPO [id number] 2021 Unknown [id number] Social History Date Type Detail Facility Start: 07-29-2021 End: 07-06-2022 Tobacco smoking status NHIS Ex-smoker [facility] Work Phone: Start: 1963 End: 08-14-2006 History of tobacco use Current smoker [facility] Work Phone: Start: 1963 End: 08-14-2006 History of tobacco use Cigarette Smoker [facility] Work Phone: Start: 12-20-2021 End: 10-03-2023 Alcohol intake Current drinker of alcohol (finding) [facility] Start: 08-27-2020 End: 01-03-2023 History SDOH Alcohol Frequency 2 [facility] Start: 08-27-2020 End: 01-03-2023 History SDOH Alcohol Std Drinks 98 [facility] Start: 09-10-2009 History SDOH Alcohol Comment rarely [facility] Start: 08-27-2020 End: 01-03-2023 History SDOH Social Connections Phone 5 [facility] Start: 08-27-2020 End: 01-03-2023 History SDOH Social Connections Get Together 1 [facility] Start: 08-27-2020 End: 01-03-2023 History SDOH Social Connections Living 3 [facility] Start: 08-27-2020 History SDOH Physical Activity DPW 7 [facility] Start: 06-13-2020 Education 21 [facility] Start: 07-29-2021 End: 07-06-2022 Tobacco Comment Parents smoked in childhood home. Spouse ex-smoker, did smoke early in marriage. [facility] Start: 1945 Sex Assigned At Female [facility] Start: 02-13-2022 End: 10-10-2022 Exposure to SARS-CoV-2 (event) Not sure [facility] Start: 07-29-2021 End: 08-30-2023 Cigarettes smoked current (pack per day) - Reported 1 [facility] Start: 07-29-2021 End: 07-06-2022 Tobacco use and exposure Smokeless tobacco non-user [facility] Work Phone: Start: 07-02-2022 End: 01-03-2023 History SDOH Alcohol Std Drinks 0 [facility] Start: 07-02-2022 End: 01-03-2023 History SDOH Physical Activity DPW 4 [facility] Start: 07-02-2022 History SDOH Physical Activity MPS 6 [facility] Start: 06-26-2022 End: 07-06-2022 Exposure to SARS-CoV-2 (event) Yes [facility] Start: 01-03-2023 End: 08-30-2023 Social connection and isolation panel [facility] How often do you get together with friends or relatives? Patient refused [facility] Do you belong to any clubs or organizations such as buddhist groups, unions, fraternal or athletic groups, or school groups? No [facility] Are you now , , , , never or living with a partner? [facility] How often to you hav e a drink containing alcohol? Never [facility] Do you feel stress - tense, restless, nervous, or anxious, or unable to sleep at night because your mind is troubled all the time - these days [OSQ] Only a little [facility] (I/We) worried wheth er (my/our) food would run out before (I/we) got money to buy more. Never true [facility] Start: 02-15-2019 Gender identity Identifies as female gender (finding) [facility] Start: 02-15-2019 Sexual orientation Heterosexual (finding) [facility] How often to you hav e a drink containing alcohol? Monthly or less [facility] How hard is it for y ou to pay for the very basics like food, housing, medical care, and heating Not very hard [facility] Do you feel stress - tense, restless, nervous, or anxious, or unable to sleep at night because your mind is troubled all the time - these days [OSQ] Not at all [facility] Clinical Notes 12-04-2018 to 11-07-2023 Telephone Encounter - Marcelo Acosta MD - 10/14/2023 10:53 AM ESTTelephone Encounter - Natalie Bonds MA - 10/14/2023 8:44 AM Tomeka Jarrell RT(R) - 10/03/2023 3:40 PM EST Note Date & Type Note Facility 11-07-2023 Note HNO ID: [id number] Author: Chloe Lewis RT(R) Service: ? Author Type: Transport Specialist Type: Progress Notes Filed: 11/07/2023 2:25 PM Note Text: Radiology Service Progress Note PATIENT NAME: Joyce Hurst DATE OF SERVICE: November 07, 2023 TIME: 2:24 PM PATIENT IDENTITY VERIFICATION COMPLETED USING TWO (2) IDENTIFIERS: Name and Date of confirmed by patient verbally. FALL SCREENING: Has the patient had 2 falls in the last year or 1 fall with injury or currently using an Ambulatory Assistive Device (Walker, Cane, Wheelchair, Crutches, etc.)? No PATIENT GENDER DATA: Female. status: : No status: NO. PATIENT RELEVANT IMPLANT DATA REVIEWED: Yes RADIOLOGY DEPARTMENT: CT; Exam(s) Completed: Chest PERIPHERAL IV DATA: Not applicable SIGNED BY: RT Marivel(R) November 07, 2023 2:24 PM [facility] 10-14-2023 Miscellaneous Notes The following approved medication requests have been transmitted electronically. Requested Prescriptions Signed Prescriptions Disp Refills dilTIAZem CR (TIAZAC, TAZTIA XT) 180 mg 24 hr capsule 90 capsule 1 Sig: Take 1 capsule by mouth once daily. Authorizing Provider: MARCELO ACOSTA lansoprazole (PREVACID) 30 mg capsule 90 capsule 1 Sig: Take 1 capsule by mouth once daily. Authorizing Provider: MARCELO ACOSTA rosuvastatin (CRESTOR) 40 mg tablet 90 tablet 1 Sig: Take 1 tablet by mouth every evening. Authorizing Provider: MARCELO ACOSTA MD Patient has been identified by name and date of : Yes Requested Prescriptions Pending Prescriptions Disp Refills dilTIAZem CR (TIAZAC, TAZTIA XT) 180 mg 24 hr capsule 90 capsule 1 Sig: Take 1 capsule by mouth once daily. lansoprazole (PREVACID) 30 mg capsule 90 capsule 1 Sig: Take 1 capsule by mouth once daily. rosuvastatin (CRESTOR) 40 mg tablet 90 tablet 1 Sig: Take 1 tablet by mouth every evening. RX INSTRUCTIONS: Patient aware RX will be sent to pharmacy. No need to notify patient. Natalie Bonds MA [facility] 08/2023 Nov 02/29/2024 Last refill: 07/2023 documented in this encounter [facility] 10-03-2023 Note HNO ID: [id number] Author: Tomeka Mark RT(Litzy) Service: ? Author Type: Technologist Type: Progress Notes Filed: 10/03/2023 3:36 PM Note Text: Radiology Service Progress Note PATIENT NAME: Joyce Hurst DATE OF SERVICE: October 03, 2023 TIME: 3:36 PM PATIENT IDENTITY VERIFICATION COMPLETED USING TWO (2) IDENTIFIERS: Name and Date of confirmed by patient verbally. FALL SCREENING: Has the patient had 2 falls in the last year or 1 fall with injury or currently using an Ambulatory Assistive Device (Walker, Cane, Wheelchair, Crutches, etc.)? No PATIENT GENDER DATA: Female. status: : No status: NO. PATIENT RELEVANT IMPLANT DATA REVIEWED: Not Applicable RADIOLOGY DEPARTMENT: Mammography PERIPHERAL IV DATA: Not applicable SIGNED BY: NATHANIEL BourneR) October 03, 2023 3:36 PM [facility] 10-03-2023 Note HNO ID: [id number] Author: Taylor Chavez APRN.COMPUTED TOMOGRAPHY TECHNOLOGIST Service: ? Author Type: Nurse Practitioner Type: Progress Notes Filed: 10/03/2023 4:36 PM Note Text: Silverware Assembler offered: Patient declinesDaniel Cook is a 78 year old who presents for an annual gynecologic exam without complaints. Postmenopausal: Yes since age 43 HRT use: Yes, How lon year. Last Pap: 2010 normal History of abnormal pap: No HPV: 2010 negative Last mammogram: today, pending History of abnormal mammogram: Yes further imaging normal. Breast reduction in 2014 , scar tissue right breast being monitoring with mammography Sexually active: No Documentation from previous visit of 08/31/2021 was copied and pasted, documentation has been reviewed and edited as necessary for today's visit. 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) 10/16/2017 Bilateral carotid artery stenosis 12/09/2019 Seeing Vascular: US 12/2019 Rt 20-40%, Lt 60-80% Chronic left-sided low back pain with left-sided sciatica 06/18/2018 COVID-19 virus infection 07/21/202106/2021 DDD (degenerative disc disease), cervical 08/30/2023 Seeing [facility] Degeneration of lumbar or lumbosacral intervertebral disc 04/01/2020 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 oxygen therapy 02/23/2022 See Pulmonary Depression 02/25/2016 Elevated hemoglobin A1c 12/30/2020 Essential hypertension with goal blood pressure less than 140/90 02/25/2016 Ex-smoker 07/07/2006 Started at 18 up to 1 PPD a day quit 2005 Gastroesophageal reflux disease without esophagitis 07/03/2015 Generalized osteoarthrosis, involving multiple sites History of 2019 novel coronavirus disease (COVID-19) 07/22/2020 Positive test 07/21/2020 History of polymyalgia rheumatica 03/21/2011 Kidney stones 10/07/2013 Living will on file at physician's office 01/08/2023 DPA: Burton Hurst (). 2nd- Berta (both daughters) Lumbosacral radiculopathy 04/01/2020 Mixed hyperlipidemia 09/30/2015 Neuropathy 12/17/2020 Lower extremities, NCS/EMG from 12/09/2020 Obesity 03/17/2014 Osteoarthritis of spine with radiculopathy, lumbosacral region 04/01/2020 Osteoarthritis, hand 11/02/2012 Osteopenia 09/14/2010 Personal history of colonic polyps Colon polyps Polycythemia, secondary 03/14/2012 PVD (peripheral vascular disease) (HCC) 10/17/2016 Restless legs 03/01/2013 Right shoulder pain 06/29/2018 Toenail deformity 02/23/[address] Ragland routinely. Unspecified deformity of ankle and foot, acquired 09/10/2009 PAST SURGICAL HISTORY Procedure Laterality Date APPENDECTOMY age 9 ARTHRP ACETBLR/PROX FEM PROSTC AGRFT/ALGRFT Right 08/17/2020 Dr. Steve Delarosa ARTHRP KNE CONDYLEANDPLATU MEDIALANDLAT COMPARTMENTS 03/2013 Knee replacement, total, left ARTL CATHJ/CANNULJ MNTR/TRANSFUSION SPX PRQ 09/07/2006 BALLN ANGIOPLASTY PERC,ILIAC 05/01/2007 ILIAC COLONOSCOPY FLX DX W/COLLJ SPEC WHEN PFRMD 2001 Colonoscopy COLONOSCOPY FLX DX W/COLLJ SPEC WHEN PFRMD 2006 Colonoscopy COLONOSCOPY FLX DX W/COLLJ SPEC WHEN PFRMD 05/13/2011 repeat in 10 yrs. COLONOSCOPY SCREENING 09/21/2021 Dr. Campoverde EGD TRANSORAL BIOPSY SINGLE/MULTIPLE 08/12/2011 ESOPHAGOGASTRODUODENOSCOPY TRANSORAL DIAGNOSTIC 2001 EGD FECAL OCCULT BLOOD TEST 10/11/2017 negative INTRO OF NEEDLE OR INTRACATHETER UPR/LXTR ARTERY 05/02/2007 RIGHT CRYSTAL FINISHER INTRO OF NEEDLE OR INTRACATHETER UPR/LXTR ARTERY 05/02/2007 LEFT CRYSTAL FINISHER INTRO OF NEEDLE OR INTRACATHETER UPR/LXTR ARTERY Right 12/15/2016 sfa INTRODUCTION CATHETER AORTA 05/01/2007 INTRODUCTION CATHETER AORTA 05/02/2007 MAJOR JOINT INJECTION (SHOULDER,HIP,KNEE) Left 02/21/2023 shoulder- Dr. Wilson at [facility] PAST SURGICAL HISTORY OF 07/19/2002 aorto- to left external iliac and to right common femoral artery PAST SURGICAL HISTORY OF 04/2007 Thrombolysis to L Limb of graft, followed by angioplasty and stenting PAST SURGICAL HISTORY OF Right 02/2017 2nd toe amputated d/t hammer toe PAST SURGICAL HISTORY OF Left 12/14/2018 Bunionectomy an 2nd toe amputation PRIM PRQ TRLUML MCHNL THRMBC N-COR N-ICRA 1ST 05/01/2007 REDUCTION OF LARGE BREAST 09/02/2014 SLCTV CATHJ 1ST 2ND ORD THRC/BRCH/CPHLC BRNC 09/07/2006 RIGHT SLCTV CATHJ 1ST 2ND ORD THRC/BRCH/CPHLC BRNC 09/07/2006 LEFT STEREOTACTIC CORE BIOPSY 09/20/2007 LEFT STEREOTACTIC CORE BIOPSY LEFT BREAST TEAEC W/PATCH GRF CAROTID VERTB SUBCLAV NECK INC 09/07/2006 L C (more content not included)... [facility] 10-03-2023 History of Presen t illness Narrative Radiology Service Progress Note PATIENT NAME: Joyce Hurst DATE OF SERVICE: October 03, 2023 TIME: 3:36 PM PATIENT IDENTITY VERIFICATION COMPLETED USING TWO (2) IDENTIFIERS: Name and Date of confirmed by patient verbally. FALL SCREENING: Has the patient had 2 falls in the last year or 1 fall with injury or currently using an Ambulatory Assistive Device (Walker, Cane, Wheelchair, Crutches, etc.)? No PATIENT GENDER DATA: Female. status: : No status: NO. 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 Joyce is a 78 year old who presents for an annual gynecologic exam without complaints. Postmenopausal: Yes since age 43 HRT use: Yes, How lon year. Last Pap: 2010 normal History of abnormal pap: No HPV: 2010 negative Last mammogram: today, pending History of abnormal mammogram: Yes further imaging normal. Breast reduction in 2014 , scar tissue right breast being monitoring with mammography Sexually active: No Documentation from previous visit of 08/31/2021 was copied and pasted, documentation has been reviewed and edited as necessary for today's visit. 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) 10/16/2017 Bilateral carotid artery stenosis 12/09/2019 Seeing Vascular: US 12/2019 Rt 20-40%, Lt 60-80% Chronic left-sided low back pain with left-sided sciatica 06/18/2018 COVID-19 virus infection 07/21/202106/2021 DDD (degenerative disc disease), cervical 08/30/2023 Seeing [facility] Degeneration of lumbar or lumbosacral intervertebral disc 04/01/2020 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 oxygen therapy 02/23/2022 See Pulmonary Depression 02/25/2016 Elevated hemoglobin A1c 12/30/2020 Essential hypertension with goal blood pressure less than 140/90 02/25/2016 Ex-smoker 07/07/2006 Started at 18 up to 1 PPD a day quit 2005 Gastroesophageal reflux disease without esophagitis 07/03/2015 Generalized osteoarthrosis, involving multiple sites History of 2019 novel coronavirus disease (COVID-19) 07/22/2020 Positive test 07/21/2020 History of polymyalgia rheumatica 03/21/2011 Kidney stones 10/07/2013 Living will on file at physician's office 01/08/2023 DPA: Burton Hurst (). 2nd- Maureen and Gabbi (both daughters) Lumbosacral radiculopathy 04/01/2020 Mixed hyperlipidemia 09/30/2015 Neuropathy 12/17/2020 Lower extremities, NCS/EMG from 12/09/2020 Obesity 03/17/2014 Osteoarthritis of spine with radiculopathy, lumbosacral region 04/01/2020 Osteoarthritis, hand 11/02/2012 Osteopenia 09/14/2010 Personal history of colonic polyps Colon polyps Polycythemia, secondary 03/14/2012 PVD (peripheral vascular disease) ([facility]) 10/17/2016 Restless legs 03/01/2013 Right shoulder pain 06/29/2018 Toenail deformity 02/23/[address] Ragland routinely. Unspecified deformity of ankle and foot, acquired 09/10/2009 PAST SURGICAL HISTORY Procedure Laterality Date APPENDECTOMY age 9 ARTHRP ACETBLR/PROX FEM PROSTC AGRFT/ALGRFT Right 08/17/2020 Dr. Steve Delarosa ARTHRP KNE CONDYLE&PLATU MEDIAL&LAT COMPARTMENTS 03/2013 Knee replacement, total, left ARTL CATHJ/CANNULJ MNTR/TRANSFUSION SPX PRQ 09/07/2006 BALLN ANGIOPLASTY PERC,ILIAC 05/01/2007 ILIAC COLONOSCOPY FLX DX W/COLLJ SPEC WHEN PFRMD 2001 Colonoscopy COLONOSCOPY FLX DX W/COLLJ SPEC WHEN PFRMD 2006 Colonoscopy COLONOSCOPY FLX DX W/COLLJ SPEC WHEN PFRMD 05/13/2011 repeat in 10 yrs. COLONOSCOPY SCREENING 09/21/2021 Dr. Campoverde EGD TRANSORAL BIOPSY SINGLE/MULTIPLE 08/12/2011 ESOPHAGOGASTRODUODENOSCOPY TRANSORAL DIAGNOSTIC 2001 EGD FECAL OCCULT BLOOD TEST 10/11/2017 negative INTRO OF NEEDLE OR INTRACATHETER UPR/LXTR ARTERY 05/02/2007 RIGHT CRYSTAL FINISHER INTRO OF NEEDLE OR INTRACATHETER UPR/LXTR ARTERY 05/02/2007 LEFT CRYSTAL FINISHER INTRO OF NEEDLE OR INTRACATHETER UPR/LXTR ARTERY Right 12/15/2016 sfa INTRODUCTION CATHETER AORTA 05/01/2007 INTRODUCTION CATHETER AORTA 05/02/2007 MAJOR JOINT INJECTION (SHOULDER,HIP,KNEE) Left 02/21/2023 shoulder- Dr. Wilson at [facility] PAST SURGICAL HISTORY OF 07/19/2002 aorto- to left external iliac and to right common femoral artery PAST SURGICAL HISTORY OF 04/2007 Thrombolysis to L Limb of graft, followed by angioplasty and stenting PAST SURGICAL HISTORY OF Right 02/2017 2nd toe amputated d/t hammer toe PAST SURGICAL HISTORY OF Left 12/14/2018 Bunionectomy an 2nd toe amputation PRIM PRQ TRLUML MCHNL THRMBC N-COR N-ICRA 1ST 05/01/2007 REDUCTION OF LARGE BREAST 09/02/2014 SLCTV CATHJ 1ST 2ND ORD [facility] 09/07/2006 RIGHT SLCTV CATHJ 1ST 2ND ORD [facility] 09/07/2006 LEFT STEREOTACTIC CORE BIOPSY 09/20/2007 LEFT STEREOTACTIC CORE BIOPSY LEFT BREAST TEAEC W/PATCH GRF CAROTID VERTB SUBCLAV NECK INC 09/07/2006 L CEA TEAEC W/PATCH GRF CAROTID VERTB SUBCLAV NECK INC Endarterectomy, carotid, left TEMPORAL ARTERY BIOSPY 2010 negative TONSILLECTOMY PRIMARY/SECONDARY <AGE 12 Tonsillectomy TRANSCATH STENT INIT VESSEL,PERCUT 05/01/2007 TUBAL LIGATION, FAMILY HISTORY Problem Relation Age of Onset Coronary Artery Disease Mother Hypertension Mother Coronary Artery Disease Father Cancer Father lung ca. Hypertension Sister SOCIAL HISTORY Social History Tobacco Use Smoking status: Former Packs/day: 1.00 Years: 43.00 Additional pack years: 0.00 Total pack years: 43.00 Types: Cigarettes Start date: 1963 Quit date: 08/14/2006 Years since quittin.1 Smokeless tobacco: Never Tobacco comments: Parents smoked in childhood home. Spouse ex-smoker, did smoke early in marriage. Vaping Use Vaping Use: Never used Substance Use Topics Alcohol use: Yes Comment: rarely Drug use: No REVIEW OF SYSTEMS Abdomen: No abdominal pain, nausea, vomiting, diarrhea, or constipation. No bloating, early satiety, indigestion, or increased flatulence. Bladder: No dysuria, gross hematuria, urinary frequency, urinary urgency, or incontinence. Gets up 3-4 times to void during night - drinks in evening and during the night. Breast: No breast lumps, nipple d/c, overlying skin changes, redness or skin retraction Allergies and current medication updated:Yes EXAM: BP 128/76 Ht 4' 8 (1.42m) Wt 163 lb 9.6 oz (74.2kg) BMI 36.70 kg/(m^2). GENERAL: pleasant, female in no apparent distress HEENT: Normocephalic, atraumatic, mucus membranes moist, and no lesions NECK: Supple, full range of motion, no adenopathy, and thyroid normal DERMATOLOGY: Normal, without lesions, non-icteric, and non-hirsute BREAST: soft, non-tender, symmetric, normal nipple-areolar complex, no lymphadenopathy, no nipple discharge. Firm mass right breast 9-12 o'clock - calcified scar tissue being monitored by mammograms. CHEST: Normal inspiratory effort ABDOMEN: soft, non-tender, and no masses PELVIC: external genitalia normal, normal Bartholin's glands, urethra, [place]'s glands, no vulvar lesions, no cervical lesions, physiologic discharge present, normal appearing perineal body and perianal region. + atrophy BIMANUAL: uterus normal size, shape and consistency, no adnexal masses, and non-tender RECTOVAGINAL: deferred. NEURO: alert and oriented x3,exam grossly non-focal EXTREMITIES: normal ASSESSMENT/PLAN: 1) Health maintenance: Pap/HPV screening no longer needed Mammogram ordered Mammogram up to date Nutrition, exercise and routine health maintenance exams reviewed. Calcium/Vitamin D supplementation information provided. Colon cancer screenin - no more recommended by Dr Campoverde. BMD: up to date, yesterday and pending 2) Follow up one year or sooner as needed Taylor Chavez APRN.COMPUTED TOMOGRAPHY TECHNOLOGIST documented in this encounter [facility] 10-02-2023 Miscellaneous Notes See [employer] message. documented in this encounter [facility] 10-02-2023 Note HNO ID: [id number] Author: Shayne Shelby RT(R) Service: ? Author Type: Technologist Type: Progress Notes Filed: 10/02/2023 8:39 AM Note Text: Radiology Service Progress Note PATIENT NAME: Joyce Hurst DATE OF SERVICE: October 02, 2023 TIME: 8:30 AM PATIENT IDENTITY VERIFICATION COMPLETED USING TWO (2) IDENTIFIERS: Name and Date of confirmed by patient verbally. FALL SCREENING: Has the patient had 2 falls in the last year or 1 fall with injury or currently using an Ambulatory Assistive Device (Walker, Cane, Wheelchair, Crutches, etc.)? No PATIENT GENDER DATA: Female. status: : No status: NO. PATIENT RELEVANT IMPLANT DATA REVIEWED: Not Applicable RADIOLOGY DEPARTMENT: Bone Density PERIPHERAL IV DATA: Not applicable SIGNED BY: RT Antoinette(R) October 02, 2023 8:30 AM [facility] 10-02-2023 History of Presen t illness Narrative Radiology Service Progress Note PATIENT NAME: Joyce Hurst DATE OF SERVICE: October 02, 2023 TIME: 8:30 AM PATIENT IDENTITY VERIFICATION COMPLETED USING TWO (2) IDENTIFIERS: Name and Date of confirmed by patient verbally. FALL SCREENING: Has the patient had 2 falls in the last year or 1 fall with injury or currently using an Ambulatory Assistive Device (Walker, Cane, Wheelchair, Crutches, etc.)? No PATIENT GENDER DATA: Female. status: : No status: NO. PATIENT RELEVANT IMPLANT DATA REVIEWED: Not Applicable RADIOLOGY DEPARTMENT: Bone Density PERIPHERAL IV DATA: Not applicable SIGNED BY: RT Antoinette(R) October 02, 2023 8:30 AM documented in this encounter [facility] 08-30-2023 Note HNO ID: [id number] Author: Marcelo Acosta MD Service: ? Author Type: Physician Type: Progress Notes Filed: 08/31/2023 4:04 PM Note Text: Chief Complaint Patient presents with: F/U 6 months HPI Joyce Hurst is a 78 year old female who presents here today for 6 month follow up. Patient with hx of HTN, PVD, carotid stenosis, OA, RLS, neuropathy, GERD, elevated a1c, OA, obesity, and those as below. Patient overall doing well. Denies concerns. Requip helps but not as well as it had been. The cymbalta continues to help manage her depression. Has been seeing [facility] for arm pain which they feel is coming from her neck. Still seeing vascular once a year. Past medical history, appointments, medications, allergies reviewed. 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-sided sciatica 06/18/2018 COVID-19 virus infection 07/21/202106/2021 Degeneration of lumbar or lumbosacral intervertebral disc 04/01/2020 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 oxygen therapy 02/23/2022 See Pulmonary Depression 02/25/2016 Elevated hemoglobin A1c 12/30/2020 Essential hypertension with goal blood pressure less than 140/90 02/25/2016 Ex-smoker 07/07/2006 Started at 18 up to 1 PPD a day quit 2005 Gastroesophageal reflux disease without esophagitis 07/03/2015 Generalized osteoarthrosis, involving multiple sites History of 2019 novel coronavirus disease (COVID-19) 07/22/2020 Positive test 07/21/2020 History of polymyalgia rheumatica 03/21/2011 Kidney stones 10/07/2013 Living will on file at physician's office 01/08/2023 DPA: Burton Hurst (). 2nd- Maureen and Gabbi (both daughters) Lumbosacral radiculopathy 04/01/2020 Mixed hyperlipidemia 09/30/2015 Neuropathy 12/17/2020 Lower extremities, NCS/EMG from 12/09/2020 Obesity 03/17/2014 Osteoarthritis of spine with radiculopathy, lumbosacral region 04/01/2020 Osteoarthritis, hand 11/02/2012 Osteopenia 09/14/2010 Personal history of colonic polyps Colon polyps Polycythemia, secondary 03/14/2012 PVD (peripheral vascular disease) ([facility]) 10/17/2016 Restless legs 03/01/2013 Right shoulder pain 06/29/2018 Unspecified deformity of ankle and foot, acquired 09/10/2009 Previous Surgical History PAST SURGICAL HISTORY Procedure Laterality Date APPENDECTOMY age 9 ARTHRP ACETBLR/PROX FEM PROSTC AGRFT/ALGRFT Right 08/17/2020 Dr. Steve Delarosa ARTHRP KNE CONDYLEANDPLATU MEDIALANDLAT COMPARTMENTS 03/2013 Knee replacement, total, left ARTL CATHJ/CANNULJ MNTR/TRANSFUSION SPX PRQ 09/07/2006 BALLN ANGIOPLASTY PERC,ILIAC 05/01/2007 ILIAC COLONOSCOPY FLX DX W/COLLJ SPEC WHEN PFRMD 2001 Colonoscopy COLONOSCOPY FLX DX W/COLLJ SPEC WHEN PFRMD 2006 Colonoscopy COLONOSCOPY FLX DX W/COLLJ SPEC WHEN PFRMD 05/13/2011 repeat in 10 yrs. COLONOSCOPY SCREENING 09/21/2021 Dr. Campoverde EGD TRANSORAL BIOPSY SINGLE/MULTIPLE 08/12/2011 ESOPHAGOGASTRODUODENOSCOPY TRANSORAL DIAGNOSTIC 2001 EGD FECAL OCCULT BLOOD TEST 10/11/2017 negative INTRO OF NEEDLE OR INTRACATHETER UPR/LXTR ARTERY 05/02/2007 RIGHT CRYSTAL FINISHER INTRO OF NEEDLE OR INTRACATHETER UPR/LXTR ARTERY 05/02/2007 LEFT CRYSTAL FINISHER INTRO OF NEEDLE OR INTRACATHETER UPR/LXTR ARTERY Right 12/15/2016 sfa INTRODUCTION CATHETER AORTA 05/01/2007 INTRODUCTION CATHETER AORTA 05/02/2007 LIG/TRNSXJ FLP TUBE ABDL/VAG APPR UNI/BI Tubal ligation MAJOR JOINT INJECTION (SHOULDER,HIP,KNEE) Left 02/21/2023 shoulder- Dr. Wilson at [facility] PAST SURGICAL HISTORY OF 07/19/2002 aorto- to left external iliac and to right common femoral artery PAST SURGICAL HISTORY OF 04/2007 Thrombolysis to L Limb of graft, followed by angioplasty and stenting PAST SURGICAL HISTORY OF Right 02/2017 2nd toe amputated d/t hammer toe PAST SURGICAL HISTORY OF Left 12/14/2018 Bunionectomy an 2nd toe amputation PRIM [facility] 05/01/2007 REDUCTION OF LARGE BREAST 09/02/2014 SLCTV CATHJ 1ST 2ND ORD [facility]RC/[facility] BR[facility] 09/07/2006 RIGHT SLCTV CATHJ 1ST 2ND ORD [facility]/BR[facility]LC BR[facility] 09/07/2006 LEFT STEREOTACTIC CORE BIOPSY 09/20/2007 LEFT STEREOTACTIC CORE BIOPSY LEFT BREAST TEAEC W/PATCH GRF CAROTID VERTB SUBCLAV NECK INC 09/07/2006 L CEA TEAEC W/PATCH GRF CAROTID VERTB SUBCLAV NECK INC Endarterectomy, carotid, left TEMPORAL ARTERY BIOSPY 2010 negative TONSILLECTOMY PRIMARY/SECONDARY Tonsillectomy TRANSCATH STENT INIT VESSEL,PERCUT 05/01/2007 TUBAL LIGATION, Family History FAMILY HISTORY Problem Relation Age of Onset Coronary Artery Disease Mother Hypertens (more content not included)... [facility] 08-30-2023 Instructions Marcelo Acosta MD - 08/30/2023 10:18 AM EDT Stop taking the Alendronate 70 mg once a week Make sure you are getting calcium much as a tums 600 mg twice a day and vit D 2000 international unit(s) a day. I have increased the pramipexole for the restless legs to 1 mg twice a day. Use up the 0.5 mg tabs by taking two in the morning and one in the evening for a week and then two twice a day till finished., Please get labs and urine test done on or after 02/15/2023 prior to your next visit. documented in this encounter [facility] 08-30-2023 History of Presen t illness Narrative Chief Complaint Patient presents with: F/U 6 months HPI Joyce Hurst is a 78 year old female who presents here today for 6 month follow up. Patient with hx of HTN, PVD, carotid stenosis, OA, RLS, neuropathy, GERD, elevated a1c, OA, obesity, and those as below. Patient overall doing well. Denies concerns. Requip helps but not as well as it had been. The cymbalta continues to help manage her depression. Has been seeing [facility] for arm pain which they feel is coming from her neck. Still seeing vascular once a year. Past medical history, appointments, medications, allergies reviewed. 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-sided sciatica 06/18/2018 COVID-19 virus infection 07/21/202106/2021 Degeneration of lumbar or lumbosacral intervertebral disc 04/01/2020 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 oxygen therapy 02/23/2022 See Pulmonary Depression 02/25/2016 Elevated hemoglobin A1c 12/30/2020 Essential hypertension with goal blood pressure less than 140/90 02/25/2016 Ex-smoker 07/07/2006 Started at 18 up to 1 PPD a day quit 2005 Gastroesophageal reflux disease without esophagitis 07/03/2015 Generalized osteoarthrosis, involving multiple sites History of 2019 novel coronavirus disease (COVID-19) 07/22/2020 Positive test 07/21/2020 History of polymyalgia rheumatica 03/21/2011 Kidney stones 10/07/2013 Living will on file at physician's office 01/08/2023 DPA: Burton Hurst (). 2nd- Maureen and Gabbi (both daughters) Lumbosacral radiculopathy 04/01/2020 Mixed hyperlipidemia 09/30/2015 Neuropathy 12/17/2020 Lower extremities, NCS/EMG from 12/09/2020 Obesity 03/17/2014 Osteoarthritis of spine with radiculopathy, lumbosacral region 04/01/2020 Osteoarthritis, hand 11/02/2012 Osteopenia 09/14/2010 Personal history of colonic polyps Colon polyps Polycythemia, secondary 03/14/2012 PVD (peripheral vascular disease) (HCC) 10/17/2016 Restless legs 03/01/2013 Right shoulder pain 06/29/2018 Unspecified deformity of ankle and foot, acquired 09/10/2009 Previous Surgical History PAST SURGICAL HISTORY Procedure Laterality Date APPENDECTOMY age 9 ARTHRP ACETBLR/PROX FEM PROSTC AGRFT/ALGRFT Right 08/17/2020 Dr. Steve Delarosa ARTHRP KNE CONDYLE&PLATU MEDIAL&LAT COMPARTMENTS 03/2013 Knee replacement, total, left ARTL CATHJ/CANNULJ MNTR/TRANSFUSION SPX PRQ 09/07/2006 BALLN ANGIOPLASTY PERC,ILIAC 05/01/2007 ILIAC COLONOSCOPY FLX DX W/COLLJ SPEC WHEN PFRMD 2001 Colonoscopy COLONOSCOPY FLX DX W/COLLJ SPEC WHEN PFRMD 2006 Colonoscopy COLONOSCOPY FLX DX W/COLLJ SPEC WHEN PFRMD 05/13/2011 repeat in 10 yrs. COLONOSCOPY SCREENING 09/21/2021 Dr. Campoverde EGD TRANSORAL BIOPSY SINGLE/MULTIPLE 08/12/2011 ESOPHAGOGASTRODUODENOSCOPY TRANSORAL DIAGNOSTIC 2001 EGD FECAL OCCULT BLOOD TEST 10/11/2017 negative INTRO OF NEEDLE OR INTRACATHETER UPR/LXTR ARTERY 05/02/2007 RIGHT CRYSTAL FINISHER INTRO OF NEEDLE OR INTRACATHETER UPR/LXTR ARTERY 05/02/2007 LEFT CRYSTAL FINISHER INTRO OF NEEDLE OR INTRACATHETER UPR/LXTR ARTERY Right 12/15/2016 sfa INTRODUCTION CATHETER AORTA 05/01/2007 INTRODUCTION CATHETER AORTA 05/02/2007 LIG/TRNSXJ FLP TUBE ABDL/VAG APPR UNI/BI Tubal ligation MAJOR JOINT INJECTION (SHOULDER,HIP,KNEE) Left 02/21/2023 shoulder- Dr. Wilson at [facility] PAST SURGICAL HISTORY OF 07/19/2002 aorto- to left external iliac and to right common femoral artery PAST SURGICAL HISTORY OF 04/2007 Thrombolysis to L Limb of graft, followed by angioplasty and stenting PAST SURGICAL HISTORY OF Right 02/2017 2nd toe amputated d/t hammer toe PAST SURGICAL HISTORY OF Left 12/14/2018 Bunionectomy an 2nd toe amputation PRIM PRQ TRLUML MCHNL [facility] N-COR N-ICRA 1ST 05/01/2007 REDUCTION OF LARGE BREAST 09/02/2014 SLCTV CATHJ 1ST 2ND ORD THRC/BRCH/CPHLC BRNC 09/07/2006 RIGHT SLCTV CATHJ 1ST 2ND ORD THRC/BRCH/CPHLC BR[facility] 09/07/2006 LEFT STEREOTACTIC CORE BIOPSY 09/20/2007 LEFT STEREOTACTIC CORE BIOPSY LEFT BREAST TEAEC W/PATCH GRF CAROTID VERTB SUBCLAV NECK INC 09/07/2006 L CEA TEAEC W/PATCH GRF CAROTID VERTB SUBCLAV NECK INC Endarterectomy, carotid, left TEMPORAL ARTERY BIOSPY 2010 negative TONSILLECTOMY PRIMARY/SECONDARY <AGE 12 Tonsillectomy TRANSCATH STENT INIT VESSEL,PERCUT 05/01/2007 TUBAL LIGATION, Family History FAMILY HISTORY Problem Relation Age of Onset Coronary Artery Disease Mother Hypertension Mother Coronary Artery Disease Father Cancer Father lung ca. Hypertension Sister Patient Allergies ALLERGIES Allergen Reactions Demerol [Meperidine* Swelling tongue swelled Lisinopril GI Upset Ceclor [Cefaclor] Other: See Comments heart palpitations Doxycycline GI Upset Grass Pollen Itching Lipitor [Atorvastat* Intolerance, GI Upset Nauseated. Like I had the flu all the time Poison [place] Hives Current Medications Current Outpatient Medications on File Prior to Visit Medication Sig pramipexole (MIRAPEX) 0.5 mg tablet Take 1 tablet by mouth twice daily. hydroCHLOROthiazide 25 mg tablet Take 1 tablet by mouth once daily. potassium chloride ER (KLOR-CON) 20 mEq tablet Take 1 tablet by mouth twice daily. lansoprazole (PREVACID) 30 mg capsule Take 1 capsule by mouth once daily. rosuvastatin (CRESTOR) 40 mg tablet Take 1 tablet by mouth every evening. DULoxetine (CYMBALTA) 30 mg capsule Take 1 capsule by mouth once daily. In the AM dilTIAZem CR (TIAZAC, TAZTIA XT) 180 mg 24 hr capsule Take 1 capsule by mouth once daily. alendronate (FOSAMAX) 70 mg tablet Take 1 tablet by mouth one time a week. Take with a full glass of water, on an empty stomach; do NOT lie down for 30minutes. celecoxib (CELEBREX) 200 mg capsule Take 1 capsule by mouth twice daily. DULoxetine (CYMBALTA) 60 mg capsule Take 1 capsule by mouth once daily. In the evening Blood Pressure Test Kit-Large (QUICK RESPONSE BP MONITOR) 1 Each once daily. albuterol (PROVENTIL) 2.5 mg /3 mL (0.083 %) nebulizer solution Use 3 mL via nebulizer every 4 hours as needed for wheezing/shortness of breath. Use over 5-15minutes. albuterol HFA (PROAIR HFA) 90 mcg/actuation inhaler Inhale 2 Puffs as instructed every 4 hours as needed for wheezing/shortness of breath. aspirin, enteric coated (ASPIRIN, ENTERIC COATED) 81 mg EC tablet Take 1 tablet by mouth once daily. No current facility-administered medications on file prior to visit. Social History Social History Tobacco Use Smoking status: Former Packs/day: 1.00 Years: 43.00 Additional pack years: 0.00 Total pack years: 43.00 Types: Cigarettes Start date: 1963 Quit date: 08/14/2006 Years since quittin.0 Smokeless tobacco: Never Tobacco comments: Parents smoked in childhood home. Spouse ex-smoker, did smoke early in marriage. Vaping Use Vaping Use: Never used Substance Use Topics Alcohol use: Yes Comment: rarely Drug use: No Review of Symptoms REVIEW OF SYSTEMS GENERAL: No weight loss, malaise or fevers NECK: Negative for lumps, goiter, pain and significant neck swelling RESPIRATORY: Negative for cough, hemoptysis, increased wheezing, COPD, dyspnea or shortness of breath CARDIOVASCULAR: Negative for chest pain, leg swelling, hypertension, CHF or palpitations GI: No nausea, vomiting, or diarrhea and No heartburn or reflux symptoms : No history of dysuria, blood PSYCH: See HPI ENDOCRINE: Negative for cold or heat intolerance, polyuria, polydipsia and goiter NEURO: No history of headaches, syncope, paralysis, seizures or tremors EXAM: BP 136/74 (BP Site: Right Arm, BP Position: Sitting, BP Cuff Size: Large Adult) Pulse 64 Resp 18 Wt 73.5 kg (162 lb) BMI 36.44 kg/m Last 5 Encounter Wt Readings: Date: Wt: 08/30/2023 73.5 kg (162 lb) 02/27/2023 73 kg (161 lb) 12/30/2022 73.8 kg (162 lb 9.6 oz) 11/10/2022 74.4 kg (164 lb) 10/31/2022 74.8 kg (165 lb) General Appearance: Well appearing, alert, in no acute distress, well-hydrated, well nourished.. Neck: Supple, no adenopathy; thyroid symmetric, normal size, no bruits. Lungs: Lungs clear to auscultation. No wheezing, rhonchi, rales.. Heart: RRR without murmur, gallop, or rubs. No ectopy. Abdomen: Normal abdominal exam, Abdomen soft, non-tender. Bowel sounds normal. No masses, organomegaly. Extremities: edema, skin discoloration, clubbing or capillary refill. Has sever bunions on both feet.. Peripheral Pulses: Normal. Health Maintenance List DTaP,Tdap,Td Vaccine(1 - Tdap) due on 12/29/2004 Covid-19 Vaccine(2022- season) due on 08/28/2023 Annual PCP Team Chronic Disease Visit due on 02/28/2024 BP Controlled (<130/80) due on 02/28/2024 Diabetes Screening due on 02/27/2026 Bone Density Screening Completed Influenza Vaccine Completed Advance Directive Discussion Completed RSV Vaccine Completed Hepatitis C Screening Completed Shingrix Vaccine Completed Pneumococcal Vaccine: 65+ Completed Colorectal Cancer Screening Discontinued Data reviewed Component Latest Ref Rng & Units 02/27/2023 WBC 3.70 - 11.00 k/uL 11.07 (H) RBC 3.90 - 5.20 m/uL 5.45 (H) Hemoglobin 11.5 - 15.5 g/dL 16.3 (H) Hematocrit 36.0 - 46.0 % 49.5 (H) MCV 80.0 - 100.0 fL 90.8 MCH 26.0 - 34.0 pg 29.9 MCHC 30.5 - 36.0 g/dL 32.9 RDW-CV 11.5 - 15.0 % 13.7 Platelet Count 150 - 400 k/uL 153 MPV 9.0 - 12.7 fL 12.5 Neut% % 68.0 Abs Neut (ANC) 1.45 - 7.50 k/uL 7.53 (H) Lymph% % 23.8 Abs Lymph 1.00 - 4.00 k/uL 2.64 [place]% % 5.6 Abs [place] <0.87 k/uL 0.62 Eosin% % 2.0 Abs Eosin <0.46 k/uL 0.22 Baso% % 0.4 Abs Baso <0.11 k/uL 0.04 Immature Gran % % 0.2 IMMATURE GRANS (ABS) <0.10 k/uL <0.03 NRBC /100 WBC 0.0 Absolute nRBC <0.01 k/uL <0.01 DTYPE Auto Color Yellow Yellow Clarity Clear Cloudy (A) Glucose, Urine Trace, Negative Negative Bilirubin, Urine Negative Negative Ketones, Urine Trace, Negative Negative Specific [place], Ur 1.005 - 1.030 1.017 Hemoglobin/Blood,Ur Negative, Trace 3+ (A) pH, Urine 5.0 - 8.0 6.5 Protein, Urine Trace, Negative 1+ (A) Urobilinogen Negative Negative Nitrites Negative Negative Leukest Negative, 25 Hiwot/uL 500 Hiwot/uL (A) WBC, Urine 0-5 /HPF >25 /HPF (A) RBC, Urine 0-3 /HPF >25 /HPF (A) Bacteria None Seen /HPF Many (A) Epithelial Cells /HPF Few Hyaline Cast 0 /LPF 4-10 /LPF (A) Protein, Total 6.3 - 8.0 g/dL 7.3 Albumin 3.9 - 4.9 g/dL 4.1 Calcium 8.5 - 10.2 mg/dL 9.4 Bilirubin, Total 0.2 - 1.3 mg/dL 0.6 Alkaline Phosphatase 34 - 123 U/L 98 AST 13 - 35 U/L 24 ALT 7 - 38 U/L 14 Glucose 74 - 99 mg/dL 119 (H) BUN 7 - 21 mg/dL 21 Creatinine 0.58 - 0.96 mg/dL 0.88 Sodium 136 - 144 mmol/L 139 Potassium 3.7 - 5.1 mmol/L 4.0 Chloride 97 - 105 mmol/L 101 CO2 22 - 30 mmol/L 27 Anion Gap 9 - 18 mmol/L 11 eGFR >=60 mL/min/1.73m 67 Total Cholesterol, Nonfasting <200 mg/dL 186 Triglycerides, Nonfasting <150 mg/dL 109 HDL Cholesterol, Nonfasting >39 mg/dL 67 LDL Cholesterol, Nonfasting <100 mg/dL 97 Non HDL Cholesterol, Nonfasting <130 mg/dL 119 VLDL Cholesterol, Nonfasting <30 mg/dL 22 Total Chol/HDL Ratio, Nonfasting <5.10 mg/dL 2.78 LDL/HDL Ratio, Nonfasting <2.54 mg/dL 1.45 Hemoglobin A1C 4.3 - 5.6 % 5.4 Estimated Average Glucose mg/dL 108 Vitamin B12 232 - 1,245 pg/mL 417 Magnesium 1.7 - 2.3 mg/dL 2.1 A/P ASSESSMENT/PLAN: 1. Essential hypertension with goal blood pressure less than 140/90 - ICD9: 401.9, ICD10: I10 (primary diagnosis) - Controlled - Continue current medications - Recommend home blood pressure monitoring, to bring results to next visit - Encouraged sodium restriction, DASH or Mediterranean diet - Recommend regular aerobic exercise 2. Mixed hyperlipidemia - ICD9: 272.2, ICD10: E78.2 - Controlled - Continue current medications - Counseled on healthy diet and regular exercise 3. Elevated hemoglobin A1c - ICD9: 790.29, ICD10: R73.09 - well controlled with life style changes. 4. Gastroesophageal reflux disease without esophagitis - ICD9: 530.81, ICD10: K21.9 - Continue treatment with Prevacid 30 mg QD 5. Depression, unspecified depression type - ICD9: 311, ICD10: F32.A - controlled with cymbalta. 6. Bilateral carotid artery stenosis - ICD9: 433.10, 433.30, ICD10: I65.23 - management per Vascular 7. Atherosclerosis of [place] artery of both lower extremities with intermittent claudication (HCC) - ICD9: 440.21, ICD10: I70.213 - as per #6 8. PVD (peripheral vascular disease) (HCC) - ICD9: 443.9, ICD10: I73.9 - as per #6 9. Polyneuropathy - ICD9: 356.9, ICD10: G62.9 - stable no changes. 10. Restless legs - ICD9: 333.94, ICD10: G25.81 - will titrate up the Mirapex to 1 mg in AM and 0.5 mg in evening for a week and then 1 mg twice a day. 11. Polycythemia, secondary - ICD9: 289.0, ICD10: D75.1 Check - CBC + DIFF 12. Class 2 obesity due to excess calories without serious comorbidity with body mass index (BMI) of 36.0 to 36.9 in adult - ICD9: 278.00, V85.36, ICD10: E66.09, Z68.36 Stable - Behavioral intervention 13. Osteopenia, unspecified location - ICD9: 733.90, ICD10: M85.80 - Reviewed the need for Calcium and Vitamin D supplements and weight bearing exercise as tolerated - will stop the Fosamax since she has been on it for over 5 years. In Sep 2023 check - DXA-AXIAL SKELETON 14. DDD (degenerative disc disease), cervical - ICD9: 722.4, ICD10: M50.30 - seeing [facility] Requested Prescriptions Signed Prescriptions Disp Refills pramipexole (MIRAPEX) 1 mg tablet 180 tablet 0 Sig: Take 1 tablet by mouth two times a day. F/u 6 months extensive check CMP, lipid, UA, A1c, CBC, B12, Mg prior Patient was asked at end of visit if they had any questions or input regarding the plan of care we had discussed. Marcelo Acosta MD documented in this encounter [facility] 07-31-2023 Miscellaneous Notes Patient phones requesting refills as follows: Requested Prescriptions Pending Prescriptions Disp Refills pramipexole (MIRAPEX) 0.5 mg tablet 180 tablet 1 Sig: Take 1 tablet by mouth twice daily. IVÁN 4/17/23 RR NOV 08/30/23 KELLY Please review and advise. Clay Knox LPN documented in this encounter [facility] 07-24-2023 Miscellaneous Notes Being addressed in another encounter. Mikayla Pruett LPN documented in this encounter [facility] 07-24-2023 Miscellaneous Notes Last refill Cymbalta 30 mg 12/20/22 Qty: 90 with 1 refill Last refill Crestor 04/12/23 Qty: 90 with 1 refill Last refill diltiazem 02/27/23 Qty: 90 with 1 refill IVÁN 02/27/23 NOV 08/30/23 Mikayla Pruett LPN documented in this encounter [facility] 06-21-2023 Miscellaneous Notes Nocturnal Oximetry, RA, 06/16/2023. Recording interval: 8:50:20 High pulse: 94 Low pulse: 52 Highest spO2: 100% Lowest spO2: 84% Time with spO2 < 88%: 0.7 minutes Recommendation: Based on above results, patient is not requiring supplemental oxygen at night. I have received and reviewed the outside records noted above. Maureen Weathers PA-C [facility] [place] documented in this encounter [facility] 05-04-2023 Miscellaneous Notes Rx refilled 05/01/23 Qty: 90 with 1 refill. Sent to [facility] should have refills left. Mikayla Pruett LPN documented in this encounter [facility] 04-28-2023 Miscellaneous Notes Last office visit: 02/27/23 F/u scheduled: 08/30/23 Magy Morton Ma documented in this encounter [facility] 04-12-2023 Miscellaneous Notes Last refill 12/20/22 Qty: 90 with 1 refill IVÁN 02/27/23 NOV 08/30/23 Mikayla Pruett LPN documented in this encounter [facility] 03-31-2023 Note HNO ID: [id number] Author: Natalie Bonds MA Service: ? Author Type: Wood Preserving Plant Laborer Type: Progress Notes Filed: 04/03/2023 3:58 PM Note Text: Scan on 03/28/2023 8:24 AM by External Provider, PA-C: Consultation - Orthopedics Scan on 03/30/2023 9:36 PM by External Provider, PA-C: Miscellaneous Lab Natalie Bonds MA [facility] 03-22-2023 Miscellaneous Notes Patient has been identified by name and date of : Pharmacy phones for refill(s): Requested Prescriptions Pending Prescriptions Disp Refills alendronate (FOSAMAX) 70 mg tablet 12 tablet 3 Sig: Take 1 tablet by mouth one time a week. Take with a full glass of water, on an empty stomach; do NOT lie down for 30minutes. Date of last office visit in primary care: 02/27/2023, has appt 08/30/2023 Last 2 Encounter Wt Readings: Date: Wt: 02/27/2023 73 kg (161 lb) 12/30/2022 73.8 kg (162 lb 9.6 oz) Previous labs/tests for medication: Not applicable Please advise. Thank you. Tiana Shaikh LPN documented in this encounter [facility] 03-14-2023 Miscellaneous Notes Last refills 12/20/22 Qty: x 6 months IVÁN 02/27/23 NOV 08/30/23 Mikayla Pruett LPN documented in this encounter [facility] 02-28-2023 Miscellaneous Notes Pt advised rx was sent to pharm. Mikayla Pruett LPN The following approved medication requests have been transmitted electronically. Requested Prescriptions Signed Prescriptions Disp Refills nitrofurantoin monohydrate and macrocrystal (MACROBID) 100 mg capsule 14 capsule 0 Sig: Take 1 capsule by mouth twice daily with meals for 7 days. Authorizing Provider: BRIANNA PATEL PA-C Patient returned call and given provider's message below with verbalized understanding. Patient reports she is having UTI s/s for 5 days: pain with urination, pressure, urgency, frequency. Asking provider to please send Rx to [facility]. Patient was left message to call office back Maria Esther Medina Ma See if patient having any UTI symptoms? If so will need treated. CBC shows stable elevated Hemoglobin and will continue to monitor. Magnesium, Lipid panel, A1c, B12, electrolytes, liver and kidney functions were all ok. documented in this encounter [facility] 02-27-2023 Note HNO ID: [id number] Author: Brianna Patel PA-C Service: ? Author Type: Physician Cut Out Press Operator Type: Progress Notes Filed: 02/27/2023 9:53 AM Note Text: Medicare Yearly Visit Medical B eligibilty date n/a Date of last exam 02/23/22 PAST MEDICAL HISTORY Diagnosis Date Abnormal mammogram, unspecified 2009 LEFT BREAST LESION biopsy neg Arthritis of knee 03/01/2013 Arthritis, lumbar spine 06/04/2018 Atherosclerosis of [place] arteries of extremity with intermittent claudication (HCC) 10/16/2017 Bilateral carotid artery stenosis 12/09/2019 Seeing Vascular: US 12/2019 Rt 20-40%, Lt 60-80% Chronic left-sided low back pain with left-sided sciatica 06/18/2018 COVID-19 virus infection 07/21/202106/2021 Degeneration of lumbar or lumbosacral intervertebral disc 04/01/2020 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 oxygen therapy 02/23/2022 See Pulmonary Depression 02/25/2016 Elevated hemoglobin A1c 12/30/2020 Essential hypertension with goal blood pressure less than 140/90 02/25/2016 Ex-smoker 07/07/2006 Started at 18 up to 1 PPD a day quit 2005 Gastroesophageal reflux disease without esophagitis 07/03/2015 Generalized osteoarthrosis, involving multiple sites History of 2019 novel coronavirus disease (COVID-19) 07/22/2020 Positive test 07/21/2020 History of polymyalgia rheumatica 03/21/2011 Kidney stones 10/07/2013 Living will on file at physician's office 01/08/2023 DPA: Burton Hurst (). 2nd- Maureen and Gabbi (both daughters) Lumbosacral radiculopathy 04/01/2020 Mixed hyperlipidemia 09/30/2015 Neuropathy 12/17/2020 Lower extremities, NCS/EMG from 12/09/2020 Obesity 03/17/2014 Osteoarthritis of spine with radiculopathy, lumbosacral region 04/01/2020 Osteoarthritis, hand 11/02/2012 Osteopenia 09/14/2010 Personal history of colonic polyps Colon polyps Polycythemia, secondary 03/14/2012 PVD (peripheral vascular disease) (HCC) 10/17/2016 Restless legs 03/01/2013 Right shoulder pain 06/29/2018 Unspecified deformity of ankle and foot, acquired 09/10/2009 PAST SURGICAL HISTORY Procedure Laterality Date APPENDECTOMY age 9 ARTHRP ACETBLR/PROX FEM PROSTC AGRFT/ALGRFT Right 08/17/2020 Dr. Steve Delarosa ARTHRP KNE CONDYLEANDPLATU MEDIALANDLAT COMPARTMENTS 03/2013 Knee replacement, total, left ARTL CATHJ/CANNULJ MNTR/TRANSFUSION SPX PRQ 09/07/2006 BALLN ANGIOPLASTY PERC,ILIAC 05/01/2007 ILIAC COLONOSCOPY FLX DX W/COLLJ SPEC WHEN PFRMD 2001 Colonoscopy COLONOSCOPY FLX DX W/COLLJ SPEC WHEN PFRMD 2006 Colonoscopy COLONOSCOPY FLX DX W/COLLJ SPEC WHEN PFRMD 05/13/2011 repeat in 10 yrs. COLONOSCOPY SCREENING 09/21/2021 Dr. Campoverde EGD TRANSORAL BIOPSY SINGLE/MULTIPLE 08/12/2011 ESOPHAGOGASTRODUODENOSCOPY TRANSORAL DIAGNOSTIC 2001 EGD FECAL OCCULT BLOOD TEST 10/11/2017 negative INTRO OF NEEDLE OR INTRACATHETER UPR/LXTR ARTERY 05/02/2007 RIGHT CRYSTAL FINISHER INTRO OF NEEDLE OR INTRACATHETER UPR/LXTR ARTERY 05/02/2007 LEFT CRYSTAL FINISHER INTRO OF NEEDLE OR INTRACATHETER UPR/LXTR ARTERY Right 12/15/2016 sfa INTRODUCTION CATHETER AORTA 05/01/2007 INTRODUCTION CATHETER AORTA 05/02/2007 LIG/TRNSXJ FLP TUBE ABDL/VAG APPR UNI/BI Tubal ligation MAJOR JOINT INJECTION (SHOULDER,HIP,KNEE) Left 02/21/2023 shoulder- Dr. Wilson at [facility] PAST SURGICAL HISTORY OF 07/19/2002 aorto- to left external iliac and to right common femoral artery PAST SURGICAL HISTORY OF 04/2007 Thrombolysis to L Limb of graft, followed by angioplasty and stenting PAST SURGICAL HISTORY OF Right 02/2017 2nd toe amputated d/t hammer toe PAST SURGICAL HISTORY OF Left 12/14/2018 Bunionectomy an 2nd toe amputation PRIM PRQ TRLUML MCHNL THRMBC N-COR N-ICRA 1ST 05/01/2007 REDUCTION OF LARGE BREAST 09/02/2014 SLCTV CATHJ 1ST 2ND ORD THRC/BRCH/CPHLC BRNCH 09/07/2006 RIGHT SLCTV CATHJ 1ST 2ND ORD THRC/BRCH/CPHLC BRNCH 09/07/2006 LEFT STEREOTACTIC CORE BIOPSY 09/20/2007 LEFT STEREOTACTIC CORE BIOPSY LEFT BREAST TEAEC W/PATCH GRF CAROTID VERTB SUBCLAV NECK INC 09/07/2006 L CEA TEAEC W/PATCH GRF CAROTID VERTB SUBCLAV NECK INC Endarterectomy, carotid, left TEMPORAL ARTERY BIOSPY 2010 negative TONSILLECTOMY PRIMARY/SECONDARY Tonsillectomy TRANSCATH STENT INIT VESSEL,PERCUT 05/01/2007 TUBAL LIGATION, ALLERGIES: Demerol [Meperidine (Pf)], Lisinopril, Ceclor [Cefaclor], Doxycycline, Grass Pollen, Lipitor [Atorvastatin Calcium], and Poison [place] Medications reviewed: Yes FAMILY HISTORY Problem Relation Age of Onset Coronary Artery Disease Mother Hypertension Mother Coronary Artery Disease Father Cancer Father lung ca. Hypertension Sister SOCIAL HISTORY: Social History Tobacco Use Smoking status: Former Packs/day: 1.00 Years: 43.00 Pack years: 43.00 Types: Cigarettes Start date: 1963 Quit date: 08/14/2006 Years since quittin.5 Smokeless tobacco: Never Tobacco comments: Parents smoked in childhood home. Spouse ex-smoker, did smoke e (more content not included)... 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-sided sciatica 06/18/2018 COVID-19 virus infection 07/21/202106/2021 Degeneration of lumbar or lumbosacral intervertebral disc 04/01/2020 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 oxygen therapy 02/23/2022 See Pulmonary Depression 02/25/2016 Elevated hemoglobin A1c 12/30/2020 Essential hypertension with goal blood pressure less than 140/90 02/25/2016 Ex-smoker 07/07/2006 Started at 18 up to 1 PPD a day quit 2005 Gastroesophageal reflux disease without esophagitis 07/03/2015 Generalized osteoarthrosis, involving multiple sites History of 2019 novel coronavirus disease (COVID-19) 07/22/2020 Positive test 07/21/2020 History of polymyalgia rheumatica 03/21/2011 Kidney stones 10/07/2013 Living will on file at physician's office 01/08/2023 DPA: Burton Hurst (). 2nd- Berta (both daughters) Lumbosacral radiculopathy 04/01/2020 Mixed hyperlipidemia 09/30/2015 Neuropathy 12/17/2020 Lower extremities, NCS/EMG from 12/09/2020 Obesity 03/17/2014 Osteoarthritis of spine with radiculopathy, lumbosacral region 04/01/2020 Osteoarthritis, hand 11/02/2012 Osteopenia 09/14/2010 Personal history of colonic polyps Colon polyps Polycythemia, secondary 03/14/2012 PVD (peripheral vascular disease) ([facility]) 10/17/2016 Restless legs 03/01/2013 Right shoulder pain 06/29/2018 Unspecified deformity of ankle and foot, acquired 09/10/2009 PAST SURGICAL HISTORY Procedure Laterality Date APPENDECTOMY age 9 ARTHRP ACETBLR/PROX FEM PROSTC AGRFT/ALGRFT Right 08/17/2020 Dr. Steve Delarosa ARTHRP KNE CONDYLE&PLATU MEDIAL&LAT COMPARTMENTS 03/2013 Knee replacement, total, left ARTL CATHJ/CANNULJ MNTR/TRANSFUSION SPX PRQ 09/07/2006 BALLN ANGIOPLASTY PERC,ILIAC 05/01/2007 ILIAC COLONOSCOPY FLX DX W/COLLJ SPEC WHEN PFRMD 2001 Colonoscopy COLONOSCOPY FLX DX W/COLLJ SPEC WHEN PFRMD 2006 Colonoscopy COLONOSCOPY FLX DX W/COLLJ SPEC WHEN PFRMD 05/13/2011 repeat in 10 yrs. COLONOSCOPY SCREENING 09/21/2021 Dr. Campoverde EGD TRANSORAL BIOPSY SINGLE/MULTIPLE 08/12/2011 ESOPHAGOGASTRODUODENOSCOPY TRANSORAL DIAGNOSTIC 2001 EGD FECAL OCCULT BLOOD TEST 10/11/2017 negative INTRO OF NEEDLE OR INTRACATHETER UPR/LXTR ARTERY 05/02/2007 RIGHT CRYSTAL FINISHER INTRO OF NEEDLE OR INTRACATHETER UPR/LXTR ARTERY 05/02/2007 LEFT CRYSTAL FINISHER INTRO OF NEEDLE OR INTRACATHETER UPR/LXTR ARTERY Right 12/15/2016 sfa INTRODUCTION CATHETER AORTA 05/01/2007 INTRODUCTION CATHETER AORTA 05/02/2007 LIG/TRNSXJ FLP TUBE ABDL/VAG APPR UNI/BI Tubal ligation MAJOR JOINT INJECTION (SHOULDER,HIP,KNEE) Left 02/21/2023 shoulder- Dr. Wilson at [facility] PAST SURGICAL HISTORY OF 07/19/2002 aorto- to left external iliac and to right common femoral artery PAST SURGICAL HISTORY OF 04/2007 Thrombolysis to L Limb of graft, followed by angioplasty and stenting PAST SURGICAL HISTORY OF Right 02/2017 2nd toe amputated d/t hammer toe PAST SURGICAL HISTORY OF Left 12/14/2018 Bunionectomy an 2nd toe amputation PRIM PRQ TRLUML MCHNL THRMBC N-COR N-ICRA 1ST 05/01/2007 REDUCTION OF LARGE BREAST 09/02/2014 SLCTV CATHJ 1ST 2ND ORD THRC/BRCH/CPHLC BRNCH 09/07/2006 RIGHT SLCTV CATHJ 1ST 2ND ORD THRC/BRCH/CPHLC BRNC 09/07/2006 LEFT STEREOTACTIC CORE BIOPSY 09/20/2007 LEFT STEREOTACTIC CORE BIOPSY LEFT BREAST TEAEC W/PATCH GRF CAROTID VERTB SUBCLAV NECK INC 09/07/2006 L CEA TEAEC W/PATCH GRF CAROTID VERTB SUBCLAV NECK INC Endarterectomy, carotid, left TEMPORAL ARTERY BIOSPY 2010 negative TONSILLECTOMY PRIMARY/SECONDARY <AGE 12 Tonsillectomy TRANSCATH STENT INIT VESSEL,PERCUT 05/01/2007 TUBAL LIGATION, ALLERGIES: Demerol [Meperidine (Pf)], Lisinopril, Ceclor [Cefaclor], Doxycycline, Grass Pollen, Lipitor [Atorvastatin Calcium], and Poison [place] Medications reviewed: Yes FAMILY HISTORY Problem Relation Age of Onset Coronary Artery Disease Mother Hypertension Mother Coronary Artery Disease Father Cancer Father lung ca. Hypertension Sister SOCIAL HISTORY: Social History Tobacco Use Smoking status: Former Packs/day: 1.00 Years: 43.00 Pack years: 43.00 Types: Cigarettes Start date: 1963 Quit date: 08/14/2006 Years since quittin.5 Smokeless tobacco: Never Tobacco comments: Parents smoked in childhood home. Spouse ex-smoker, did smoke early in marriage. Vaping Use Vaping Use: Never used Substance Use Topics Alcohol use: Yes Comment: rarely Drug use: No Joyce likes to exercise by walking. She watches her diet for sodium, low fat and low cholesterol most of the time. List of current specialists seen: Neuro Pulm Vascular Ortho Podiatry End of Live Planning discussed including patients advanced directive wishes: Yes I am willing to follow Joyce's advanced directives. PHQ-2 / Depression screen She in the past two weeks denies having felt down, depressed, hopeless, or with little interest or pleasure in doing things. Functional Ability/Safety Screen 1. Was the patient's timed Up and Go test unsteady or longer than 30 seconds? No 2. Does the patient need help with the phone, transportation, shopping,preparing meals, housework, laundry, medications or managing money? No 3. Does your home have rugs in the hallway (Y), lack of grab bars in the bathroom, lack of handrails on the stairs or have poor lighting? No Hearing Evaluation: hard of hearing and wears hearing aids PHYSICAL EXAM BP 120/70 (BP Site: Right Arm, BP Position: Sitting, BP Cuff Size: Large Adult) Pulse 74 Temp 37 C (98.6 F) Resp 18 Ht 142 cm (4' 7.91 ) Wt 73 kg (161 lb) BMI 36.22 kg/m Alert and oriented X 3: YES Body mass index is 36.22 kg/m . Visual acuity: sees Ophthalmology ASSESSMENT/PLAN: 78 year old female The following prevention plan was discussed during the office visit and provided to the patient: See below Brianna Patel PA-C Chief Complaint Patient presents with: Medicare Wellness Exam HPI Joyce Hurst is a 78 year old female who presents here today for extensive exam. Patient with hx of HTN, PVD, carotid stenosis, OA, RLS, neuropathy, GERD, elevated a1c, OA, obesity, and those as below. Patient overall doing well. Denies concerns. Past medical history, appointments, medications, allergies reviewed. 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-sided sciatica 06/18/2018 COVID-19 virus infection 07/21/202106/2021 Degeneration of lumbar or lumbosacral intervertebral disc 04/01/2020 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 oxygen therapy 02/23/2022 See Pulmonary Depression 02/25/2016 Elevated hemoglobin A1c 12/30/2020 Essential hypertension with goal blood pressure less than 140/90 02/25/2016 Ex-smoker 07/07/2006 Started at 18 up to 1 PPD a day quit 2005 Gastroesophageal reflux disease without esophagitis 07/03/2015 Generalized osteoarthrosis, involving multiple sites History of 2019 novel coronavirus disease (COVID-19) 07/22/2020 Positive test 07/21/2020 History of polymyalgia rheumatica 03/21/2011 Kidney stones 10/07/2013 Living will on file at physician's office 01/08/2023 DPA: Burton Hurst (). 2nd- Maureen and Gabbi (both daughters) Lumbosacral radiculopathy 04/01/2020 Mixed hyperlipidemia 09/30/2015 Neuropathy 12/17/2020 Lower extremities, NCS/EMG from 12/09/2020 Obesity 03/17/2014 Osteoarthritis of spine with radiculopathy, lumbosacral region 04/01/2020 Osteoarthritis, hand 11/02/2012 Osteopenia 09/14/2010 Personal history of colonic polyps Colon polyps Polycythemia, secondary 03/14/2012 PVD (peripheral vascular disease) (HCC) 10/17/2016 Restless legs 03/01/2013 Right shoulder pain 06/29/2018 Unspecified deformity of ankle and foot, acquired 09/10/2009 Previous Surgical History PAST SURGICAL HISTORY Procedure Laterality Date APPENDECTOMY age 9 ARTHRP ACETBLR/PROX FEM PROSTC AGRFT/ALGRFT Right 08/17/2020 Dr. Steve Delarosa ARTHRP KNE CONDYLE&PLATU MEDIAL&LAT COMPARTMENTS 03/2013 Knee replacement, total, left ARTL CATHJ/CANNULJ MNTR/TRANSFUSION SPX PRQ 09/07/2006 BALLN ANGIOPLASTY PERC,ILIAC 05/01/2007 ILIAC COLONOSCOPY FLX DX W/COLLJ SPEC WHEN PFRMD 2001 Colonoscopy COLONOSCOPY FLX DX W/COLLJ SPEC WHEN PFRMD 2006 Colonoscopy COLONOSCOPY FLX DX W/COLLJ SPEC WHEN PFRMD 05/13/2011 repeat in 10 yrs. COLONOSCOPY SCREENING 09/21/2021 Dr. Campoverde EGD TRANSORAL BIOPSY SINGLE/MULTIPLE 08/12/2011 ESOPHAGOGASTRODUODENOSCOPY TRANSORAL DIAGNOSTIC 2001 EGD FECAL OCCULT BLOOD TEST 10/11/2017 negative INTRO OF NEEDLE OR INTRACATHETER UPR/LXTR ARTERY 05/02/2007 RIGHT CRYSTAL FINISHER INTRO OF NEEDLE OR INTRACATHETER UPR/LXTR ARTERY 05/02/2007 LEFT CRYSTAL FINISHER INTRO OF NEEDLE OR INTRACATHETER UPR/LXTR ARTERY Right 12/15/2016 sfa INTRODUCTION CATHETER AORTA 05/01/2007 INTRODUCTION CATHETER AORTA 05/02/2007 LIG/TRNSXJ FLP TUBE ABDL/VAG APPR UNI/BI Tubal ligation MAJOR JOINT INJECTION (SHOULDER,HIP,KNEE) Left 02/21/2023 shoulder- Dr. Wilson at [facility] PAST SURGICAL HISTORY OF 07/19/2002 aorto- to left external iliac and to right common femoral artery PAST SURGICAL HISTORY OF 04/2007 Thrombolysis to L Limb of graft, followed by angioplasty and stenting PAST SURGICAL HISTORY OF Right 02/2017 2nd toe amputated d/t hammer toe PAST SURGICAL HISTORY OF Left 12/14/2018 Bunionectomy an 2nd toe amputation PRIM PRQ TRLUML MCHNL THRMBC N-COR N-ICRA 1ST 05/01/2007 REDUCTION OF LARGE BREAST 09/02/2014 SLCTV CATHJ 1ST 2ND ORD THRC/BRCH/CPHLC BRNC 09/07/2006 RIGHT SLCTV CATHJ 1ST 2ND ORD THRC/BRCH/CPHLC BRNCH 09/07/2006 LEFT STEREOTACTIC CORE BIOPSY 09/20/2007 LEFT STEREOTACTIC CORE BIOPSY LEFT BREAST TEAEC W/PATCH GRF CAROTID VERTB SUBCLAV NECK INC 09/07/2006 L CEA TEAEC W/PATCH GRF CAROTID VERTB SUBCLAV NECK INC Endarterectomy, carotid, left TEMPORAL ARTERY BIOSPY 2010 negative TONSILLECTOMY PRIMARY/SECONDARY <AGE 12 Tonsillectomy TRANSCATH STENT INIT VESSEL,PERCUT 05/01/2007 TUBAL LIGATION, Family History FAMILY HISTORY Problem Relation Age of Onset Coronary Artery Disease Mother Hypertension Mother Coronary Artery Disease Father Cancer Father lung ca. Hypertension Sister Patient Allergies ALLERGIES Allergen Reactions Demerol [Meperidine* Swelling tongue swelled Lisinopril GI Upset Ceclor [Cefaclor] Other: See Comments heart palpitations Doxycycline GI Upset Grass Pollen Itching Lipitor [Atorvastat* Intolerance, GI Upset Nauseated. Like I had the flu all the time Poison Adelaide Hives Current Medications Current Outpatient Medications on File Prior to Visit Medication Sig potassium chloride ER (KLOR-CON) 20 mEq tablet Take 1 tablet by mouth twice daily. lansoprazole (PREVACID) 30 mg capsule Take 1 capsule by mouth once daily. pramipexole (MIRAPEX) 0.5 mg tablet Take 1 tablet by mouth twice daily. celecoxib (CELEBREX) 200 mg capsule Take 1 capsule by mouth twice daily. rosuvastatin (CRESTOR) 40 mg tablet Take 1 tablet by mouth every evening. DULoxetine (CYMBALTA) 30 mg capsule Take 1 capsule by mouth once daily. In the AM DULoxetine (CYMBALTA) 60 mg capsule Take 1 capsule by mouth once daily. In the evening dilTIAZem CR (TIAZAC, TAZTIA XT) 180 mg 24 hr capsule Take 1 capsule by mouth once daily. Blood Pressure Test Kit-Large (QUICK RESPONSE BP MONITOR) 1 Each once daily. alendronate (FOSAMAX) 70 mg tablet Take 1 tablet by mouth one time a week. Take with a full glass of water, on an empty stomach; do NOT lie down for 30minutes. albuterol (PROVENTIL) 2.5 mg /3 mL (0.083 %) nebulizer solution Use 3 mL via nebulizer every 4 hours as needed for wheezing/shortness of breath. Use over 5-15minutes. albuterol HFA (PROAIR HFA) 90 mcg/actuation inhaler Inhale 2 Puffs as instructed every 4 hours as needed for wheezing/shortness of breath. aspirin, enteric coated (ASPIRIN, ENTERIC COATED) 81 mg EC tablet Take 1 tablet by mouth once daily. hydroCHLOROthiazide (HYDRODIURIL, ESIDRIX) 25 mg tablet Take 1 tablet by mouth once daily. cyclobenzaprine (FLEXERIL) 5 mg tablet Take 1 tablet by mouth three times daily as needed for muscle spasm. No current facility-administered medications on file prior to visit. Social History Social History Tobacco Use Smoking status: Former Packs/day: 1.00 Years: 43.00 Pack years: 43.00 Types: Cigarettes Start date: 1963 Quit date: 08/14/2006 Years since quittin.5 Smokeless tobacco: Never Tobacco comments: Parents smoked in childhood home. Spouse ex-smoker, did smoke early in marriage. Vaping Use Vaping Use: Never used Substance Use Topics Alcohol use: Yes Comment: rarely Drug use: No Review of Symptoms REVIEW OF SYSTEMS GENERAL: No weight loss, malaise or fevers HEENT: No changes in hearing or vision, no nose bleeds or other nasal problems NECK: Negative for lumps, goiter, pain and significant neck swelling RESPIRATORY: Negative for cough, hemoptysis, wheezing, COPD, dyspnea or shortness of breath CARDIOVASCULAR: Negative for chest pain, leg swelling, CHF or palpitations GI: Negative for abdominal discomfort, blood in stools or black stools, change in bowel habit, heart burn, nausea, vomiting : No history of dysuria, frequency or incontinence MUSCULOSKELETAL: chronic arthritis in multiple joints SKIN: Negative for lesions, rash, and itching PSYCH: Negative for sleep disturbance, mood disorder and recent psychosocial stressors HEMATOLOGY/LYMPHOLOGY: Negative for prolonged bleeding, bruising easily or swollen nodes ENDOCRINE: Negative for cold or heat intolerance, polyuria, polydipsia and goiter NEURO: No history of headaches, syncope, paralysis, seizures or tremors EXAM: BP 120/70 (BP Site: Right Arm, BP Position: Sitting, BP Cuff Size: Large Adult) Pulse 74 Temp 37 C (98.6 F) Resp 18 Ht 142 cm (4' 7.91 ) Wt 73 kg (161 lb) BMI 36.22 kg/m General Appearance: Well appearing, alert, in no acute distress, well-hydrated, well nourished.. Skin: sun damaged skin on chest, arms, legs and face. Skin color, texture, turgor normal, no suspicious rashes or lesions. Head: Normocephalic, no masses, lesions, tenderness or abnormalities. Eyes: Anicteric sclera. Pupils are equally round and reactive to light. Extraocular movements are intact. . Ears: External ears normal, canals clear, TMs pearly judge. Neck: Supple, no adenopathy; thyroid symmetric, normal size,. Bruits noted L>R Lungs: Lungs clear to auscultation. No wheezing, rhonchi, rales.. Heart: RRR without murmur, gallop, or rubs. No ectopy. Abdomen: Normal abdominal exam, Abdomen soft, non-tender. Bowel sounds normal. No masses, organomegaly. Extremities: No deformities, edema, skin discoloration, clubbing or cyanosis. Good capillary refill. . Peripheral Pulses: radial pulses wnl. Diminished dorsalis pedis pulses Neurologic: Gait normal. Reflexes normal and symmetric. Sensation grossly intact.. Health Maintenance List DTAP,TDAP,TD(1 - Tdap) due on 12/29/2004 ADVANCE DIRECTIVE DISCUSSION due on 11/13/2022 BP CONTROLLED (<130/80) due on 02/23/2023 ANNUAL PCP TEAM CHRONIC DISEASE VISIT due on 01/04/2024 DIABETES SCREEN due on 08/25/2025 BONE DENSITY Completed INFLUENZA Completed HEPATITIS C SCREENING Completed SHINGRIX VACCINE Completed COVID-19 VACCINE Completed PNEUMOCOCCAL: 65+ Completed Data reviewed N/a ASSESSMENT/PLAN: 1. Medicare annual wellness visit, subsequent - ICD9: V70.0, ICD10: Z00.00 (primary diagnosis) - Counseled on healthy diet and regular exercise - Calcium intake with supplements or by diet of 1000 mg/day for under 50, 3104-6267 mg/day for 50+ 2. Advance directive in chart - ICD9: V49.89, ICD10: Z78.9 In chart 3. Essential hypertension with goal blood pressure less than 140/90 - ICD9: 401.9, ICD10: I10 - good control - Continue current medication(s) - Recommended regular aerobic exercise. - Recommend home blood pressure monitoring, to bring results in on next visit - Goal of BP <130/80 4. Mixed hyperlipidemia - ICD9: 272.2, ICD10: E78.2 - to be determined upon return of lab results - Encouraged following a low carbohydrate, healthy oil intake diet. - Continue current therapy. 5. Elevated hemoglobin A1c - ICD9: 790.29, ICD10: R73.09 Await labs 6. PVD (peripheral vascular disease) (HCC) - ICD9: 443.9, ICD10: I73.9 Cont with vasc 7. Atherosclerosis of [place] artery of both lower extremities with intermittent claudication (HCC) - ICD9: 440.21, ICD10: I70.213 Cont with vasc 8. Bilateral carotid artery stenosis - ICD9: 433.10, 433.30, ICD10: I65.23 Cont with vasc 9. Depression, unspecified depression type - ICD9: 311, ICD10: F32.A Stable on current medications 10. Class 2 obesity due to excess calories without serious comorbidity with body mass index (BMI) of 36.0 to 36.9 in adult - ICD9: 278.00, V85.36, ICD10: E66.09, Z68.36 Stable - Behavioral intervention 11. Osteoarthritis of spine with radiculopathy, lumbosacral region - ICD9: 721.3, ICD10: M47.27 Cont with ortho 12. Polyneuropathy - ICD9: 356.9, ICD10: G62.9 Cont wth neuro 13. Restless legs - ICD9: 333.94, ICD10: G25.81 Cont with neuro. Brianna Patel PA-C documented in this encounter [facility] 02-06-2023 Miscellaneous Notes The following approved medication requests have been transmitted electronically. Requested Prescriptions Signed Prescriptions Disp Refills potassium chloride ER (KLOR-CON) 20 mEq tablet 180 tablet 3 Sig: Take 1 tablet by mouth twice daily. Authorizing Provider: MARCELO ACOSTA lansoprazole (PREVACID) 30 mg capsule 90 capsule 1 Sig: Take 1 capsule by mouth once daily. Authorizing Provider: MARCELO ACOSTA pramipexole (MIRAPEX) 0.5 mg tablet 180 tablet 1 Sig: Take 1 tablet by mouth twice daily. Authorizing Provider: MARCELO ACOSTA MD Patient has been identified by name and date of : Yes Requested Prescriptions Pending Prescriptions Disp Refills potassium chloride ER (KLOR-CON) 20 mEq tablet 180 tablet 3 Sig: Take 1 tablet by mouth twice daily. lansoprazole (PREVACID) 30 mg capsule 90 capsule 1 Sig: Take 1 capsule by mouth once daily. pramipexole (MIRAPEX) 0.5 mg tablet 180 tablet 1 Sig: Take 1 tablet by mouth twice daily. RX INSTRUCTIONS: Patient aware RX will be sent to pharmacy. No need to notify patient. Natalie Bonds MA Iván: 09/2022 Nov: 02/2023 Last refill: 10/2022 documented in this encounter [facility] 01-05-2023 Note HNO ID: [id number] Author: Maureen Weathers PA-C Service: ? Author Type: Physician Cut Out Press Operator Type: Progress Notes Filed: 01/05/2023 1:42 PM Note Text: Nocturnal Oximetry, RA, 12/28/2022. Recording interval: 07:16:48 High pulse: 104 Low pulse: 68 Highest spO2: 97% Lowest spO2: 82% Time with spO2 < 88%: 19.2 minutes Recommendation: Based on above results, patient is still requiring supplemental oxygen at night. I have received and reviewed the outside records noted above. Maureen Weathers PA-C [facility] [place] [facility] 01-04-2023 Note HNO ID: [id number] Author: Natalie Bonds MA Service: ? Author Type: Wood Preserving Plant Laborer Type: Progress Notes Filed: 01/04/2023 9:33 PM Note Text: Patient came to office to have copies make of her living will/power of disability attorney. Patient did not need to be seen by physician. Natalie Bonds MA [facility] 01-04-2023 History of Presen t illness Narrative Patient came to office to have copies make of her living will/power of disability attorney. Patient did not need to be seen by physician. Natalie Bonds MA documented in this encounter [facility] 12-30-2022 Note HNO ID: [id number] Author: Boy Trujillo APRN.THELMA Service: ? Author Type: Nurse Practitioner Type: Progress Notes Filed: 12/30/2022 11:09 AM Note Text: Subjective HPI HPI Joyce Hurst is a 77 year old female who presents today for CC of sinus pressure, cough, st. This started 1.5 weeks ago/worsening s/s. Has tried otc medication without relief. Symptoms are worsened by nothing. Risk factors remote smoker. .Patient presents with: Sore Throat: Pt reported redness, pain, cough, bilateral ear decreased hearing, x1.5 wks. PAST MEDICAL HISTORY Diagnosis Date Abnormal mammogram, unspecified 2009 LEFT BREAST LESION biopsy neg Arthritis of knee 03/01/2013 Arthritis, lumbar spine 06/04/2018 Atherosclerosis of [place] arteries of extremity with intermittent claudication (HCC) 10/16/2017 Bilateral carotid artery stenosis 12/09/2019 Seeing Vascular: US 12/2019 Rt 20-40%, Lt 60-80% Chronic left-sided low back pain with left-sided sciatica 06/18/2018 COVID-19 virus infection 07/21/202106/2021 Degeneration of lumbar or lumbosacral intervertebral disc 04/01/2020 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 oxygen therapy 02/23/2022 See Pulmonary Depression 02/25/2016 Elevated hemoglobin A1c 12/30/2020 Essential hypertension with goal blood pressure less than 140/90 02/25/2016 Ex-smoker 07/07/2006 Started at 18 up to 1 PPD a day quit 2005 Gastroesophageal reflux disease without esophagitis 07/03/2015 Generalized osteoarthrosis, involving multiple sites History of 2019 novel coronavirus disease (COVID-19) 07/22/2020 Positive test 07/21/2020 History of polymyalgia rheumatica 03/21/2011 Kidney stones 10/07/2013 Lumbosacral radiculopathy 04/01/2020 Mixed hyperlipidemia 09/30/2015 Neuropathy 12/17/2020 Lower extremities, NCS/EMG from 12/09/2020 Obesity 03/17/2014 Osteoarthritis of spine with radiculopathy, lumbosacral region 04/01/2020 Osteoarthritis, hand 11/02/2012 Osteopenia 09/14/2010 Personal history of colonic polyps Colon polyps Polycythemia, secondary 03/14/2012 PVD (peripheral vascular disease) ([facility]) 10/17/2016 Restless legs 03/01/2013 Right shoulder pain 06/29/2018 Unspecified deformity of ankle and foot, acquired 09/10/2009 PAST SURGICAL HISTORY Procedure Laterality Date APPENDECTOMY age 9 ARTHRP ACETBLR/PROX FEM PROSTC AGRFT/ALGRFT Right 08/17/2020 Dr. Steve Delarosa ARTHRP KNE CONDYLEANDPLATU MEDIALANDLAT COMPARTMENTS 03/2013 Knee replacement, total, left ARTL CATHJ/CANNULJ MNTR/TRANSFUSION SPX PRQ 09/07/2006 BALLN ANGIOPLASTY PERC,ILIAC 05/01/2007 ILIAC COLONOSCOPY FLX DX W/COLLJ SPEC WHEN PFRMD 2001 Colonoscopy COLONOSCOPY FLX DX W/COLLJ SPEC WHEN PFRMD 2006 Colonoscopy COLONOSCOPY FLX DX W/COLLJ SPEC WHEN PFRMD 05/13/2011 repeat in 10 yrs. COLONOSCOPY SCREENING 09/21/2021 Dr. Campoverde EGD TRANSORAL BIOPSY SINGLE/MULTIPLE 08/12/2011 ESOPHAGOGASTRODUODENOSCOPY TRANSORAL DIAGNOSTIC 2001 EGD FECAL OCCULT BLOOD TEST 10/11/2017 negative INTRO OF NEEDLE OR INTRACATHETER UPR/LXTR ARTERY 05/02/2007 RIGHT CRYSTAL FINISHER INTRO OF NEEDLE OR INTRACATHETER UPR/LXTR ARTERY 05/02/2007 LEFT CRYSTAL FINISHER INTRO OF NEEDLE OR INTRACATHETER UPR/LXTR ARTERY Right 12/15/2016 s[facility] INTRODUCTION CATHETER AORTA 05/01/2007 INTRODUCTION CATHETER AORTA 05/02/2007 LIG/TRNSXJ FLP TUBE ABDL/VAG APPR UNI/BI Tubal ligation PAST SURGICAL HISTORY OF 07/19/2002 aorto- to left external iliac and to right common femoral artery PAST SURGICAL HISTORY OF 04/2007 Thrombolysis to L Limb of graft, followed by angioplasty and stenting PAST SURGICAL HISTORY OF Right 02/2017 2nd toe amputated d/t hammer toe PAST SURGICAL HISTORY OF Left 12/14/2018 Bunionectomy an 2nd toe amputation PRIM PRQ TRLUML MCHNL THRMBC N-COR N-ICRA 1ST 05/01/2007 REDUCTION OF LARGE BREAST 09/02/2014 SLCTV CATHJ 1ST 2ND ORD THRC/BR[facility] 09/07/2006 RIGHT SLCTV CATHJ 1ST 2ND ORD THRC/BRCH/CPHLC BRNC 09/07/2006 LEFT STEREOTACTIC CORE BIOPSY 09/20/2007 LEFT STEREOTACTIC CORE BIOPSY LEFT BREAST TEAEC W/PATCH GRF CAROTID VERTB SUBCLAV NECK INC 09/07/2006 L CEA TEAEC W/PATCH GRF CAROTID VERTB SUBCLAV NECK INC Endarterectomy, carotid, left TEMPORAL ARTERY BIOSPY 2010 negative TONSILLECTOMY PRIMARY/SECONDARY Tonsillectomy TRANSCATH STENT INIT VESSEL,PERCUT 05/01/2007 TUBAL LIGATION, ALLERGIES Demerol [Meperidine (Pf)], Lisinopril, Ceclor [Cefaclor], Doxycycline, Grass Pollen, Lipitor [Atorvastatin Calcium], and Poison [place] MEDICATIONS celecoxib (CELEBREX) 200 mg capsule Take 1 capsule by mouth twice daily. hydroCHLOROthiazide (HYDRODIURIL, ESIDRIX) 25 mg tablet Take 1 tablet by mouth once daily. rosuvastatin (CRESTOR) 40 mg tablet Take 1 tablet by mouth every evening. pramipexole (MIRAPEX) 0.5 mg tablet Take 1 tablet by mouth twice daily. DULoxetine (CYMBALTA) 30 mg capsule Take 1 capsule by mouth once daily. In the AM potassium chloride ER (K-DUR, KLOR-CON) 20 mEq tabl (more content not included)... [facility] 12-30-2022 History of Presen t illness Narrative Subjective HPI HPI Joyce Hurst is a 77 year old female who presents today for CC of sinus pressure, cough, st. This started 1.5 weeks ago/worsening s/s. Has tried otc medication without relief. Symptoms are worsened by nothing. Risk factors remote smoker. .Patient presents with: Sore Throat: Pt reported redness, pain, cough, bilateral ear decreased hearing, x1.5 wks. PAST MEDICAL HISTORY Diagnosis Date Abnormal mammogram, unspecified 2009 LEFT BREAST LESION biopsy neg Arthritis of knee 03/01/2013 Arthritis, lumbar spine 06/04/2018 Atherosclerosis of [place] arteries of extremity with intermittent claudication (HCC) 10/16/2017 Bilateral carotid artery stenosis 12/09/2019 Seeing Vascular: US 12/2019 Rt 20-40%, Lt 60-80% Chronic left-sided low back pain with left-sided sciatica 06/18/2018 COVID-19 virus infection 07/21/202106/2021 Degeneration of lumbar or lumbosacral intervertebral disc 04/01/2020 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 oxygen therapy 02/23/2022 See Pulmonary Depression 02/25/2016 Elevated hemoglobin A1c 12/30/2020 Essential hypertension with goal blood pressure less than 140/90 02/25/2016 Ex-smoker 07/07/2006 Started at 18 up to 1 PPD a day quit 2005 Gastroesophageal reflux disease without esophagitis 07/03/2015 Generalized osteoarthrosis, involving multiple sites History of 2019 novel coronavirus disease (COVID-19) 07/22/2020 Positive test 07/21/2020 History of polymyalgia rheumatica 03/21/2011 Kidney stones 10/07/2013 Lumbosacral radiculopathy 04/01/2020 Mixed hyperlipidemia 09/30/2015 Neuropathy 12/17/2020 Lower extremities, NCS/EMG from 12/09/2020 Obesity 03/17/2014 Osteoarthritis of spine with radiculopathy, lumbosacral region 04/01/2020 Osteoarthritis, hand 11/02/2012 Osteopenia 09/14/2010 Personal history of colonic polyps Colon polyps Polycythemia, secondary 03/14/2012 PVD (peripheral vascular disease) ([facility]) 10/17/2016 Restless legs 03/01/2013 Right shoulder pain 06/29/2018 Unspecified deformity of ankle and foot, acquired 09/10/2009 PAST SURGICAL HISTORY Procedure Laterality Date APPENDECTOMY age 9 ARTHRP ACETBLR/PROX FEM PROSTC AGRFT/ALGRFT Right 08/17/2020 Dr. Steve Delarosa ARTHRP KNE CONDYLE&PLATU MEDIAL&LAT COMPARTMENTS 03/2013 Knee replacement, total, left ARTL CATHJ/CANNULJ MNTR/TRANSFUSION SPX PRQ 09/07/2006 BALLN ANGIOPLASTY PERC,ILIAC 05/01/2007 ILIAC COLONOSCOPY FLX DX W/COLLJ SPEC WHEN PFRMD 2001 Colonoscopy COLONOSCOPY FLX DX W/COLLJ SPEC WHEN PFRMD 2006 Colonoscopy COLONOSCOPY FLX DX W/COLLJ SPEC WHEN PFRMD 05/13/2011 repeat in 10 yrs. COLONOSCOPY SCREENING 09/21/2021 Dr. Campoverde EGD TRANSORAL BIOPSY SINGLE/MULTIPLE 08/12/2011 ESOPHAGOGASTRODUODENOSCOPY TRANSORAL DIAGNOSTIC 2001 EGD FECAL OCCULT BLOOD TEST 10/11/2017 negative INTRO OF NEEDLE OR INTRACATHETER UPR/LXTR ARTERY 05/02/2007 RIGHT CRYSTAL FINISHER INTRO OF NEEDLE OR INTRACATHETER UPR/LXTR ARTERY 05/02/2007 LEFT CRYSTAL FINISHER INTRO OF NEEDLE OR INTRACATHETER UPR/LXTR ARTERY Right 12/15/2016 sfa INTRODUCTION CATHETER AORTA 05/01/2007 INTRODUCTION CATHETER AORTA 05/02/2007 LIG/TRNSXJ FLP TUBE ABDL/VAG APPR UNI/BI Tubal ligation PAST SURGICAL HISTORY OF 07/19/2002 aorto- to left external iliac and to right common femoral artery PAST SURGICAL HISTORY OF 04/2007 Thrombolysis to L Limb of graft, followed by angioplasty and stenting PAST SURGICAL HISTORY OF Right 02/2017 2nd toe amputated d/t hammer toe PAST SURGICAL HISTORY OF Left 12/14/2018 Bunionectomy an 2nd toe amputation PRIM PRQ TRLUML MCHNL THRMBC N-COR N-ICRA 1ST 05/01/2007 REDUCTION OF LARGE BREAST 09/02/2014 SLCTV CATHJ 1ST 2ND ORD THRC/BRCH/CPHLC BRNCH 09/07/2006 RIGHT SLCTV CATHJ 1ST 2ND ORD THRC/BRCH/CPHLC BRNCH 09/07/2006 LEFT STEREOTACTIC CORE BIOPSY 09/20/2007 LEFT STEREOTACTIC CORE BIOPSY LEFT BREAST TEAEC W/PATCH GRF CAROTID VERTB SUBCLAV NECK INC 09/07/2006 L CEA TEAEC W/PATCH GRF CAROTID VERTB SUBCLAV NECK INC Endarterectomy, carotid, left TEMPORAL ARTERY BIOSPY 2010 negative TONSILLECTOMY PRIMARY/SECONDARY <AGE 12 Tonsillectomy TRANSCATH STENT INIT VESSEL,PERCUT 05/01/2007 TUBAL LIGATION, ALLERGIES Demerol [Meperidine (Pf)], Lisinopril, Ceclor [Cefaclor], Doxycycline, Grass Pollen, Lipitor [Atorvastatin Calcium], and Poison [place] MEDICATIONS celecoxib (CELEBREX) 200 mg capsule Take 1 capsule by mouth twice daily. hydroCHLOROthiazide (HYDRODIURIL, ESIDRIX) 25 mg tablet Take 1 tablet by mouth once daily. rosuvastatin (CRESTOR) 40 mg tablet Take 1 tablet by mouth every evening. pramipexole (MIRAPEX) 0.5 mg tablet Take 1 tablet by mouth twice daily. DULoxetine (CYMBALTA) 30 mg capsule Take 1 capsule by mouth once daily. In the AM potassium chloride ER (K-DUR, KLOR-CON) 20 mEq tablet Take 1 tablet by mouth twice daily. lansoprazole (PREVACID) 30 mg capsule Take 1 capsule by mouth once daily. DULoxetine (CYMBALTA) 60 mg capsule Take 1 capsule by mouth once daily. In the evening dilTIAZem CR (TIAZAC, TAZTIA XT) 180 mg 24 hr capsule Take 1 capsule by mouth once daily. Blood Pressure Test Kit-Large (QUICK RESPONSE BP MONITOR) 1 Each once daily. cyclobenzaprine (FLEXERIL) 5 mg tablet Take 1 tablet by mouth three times daily as needed for muscle spasm. alendronate (FOSAMAX) 70 mg tablet Take 1 tablet by mouth one time a week. Take with a full glass of water, on an empty stomach; do NOT lie down for 30minutes. albuterol (PROVENTIL) 2.5 mg /3 mL (0.083 %) nebulizer solution Use 3 mL via nebulizer every 4 hours as needed for wheezing/shortness of breath. Use over 5-15minutes. albuterol HFA (PROAIR HFA) 90 mcg/actuation inhaler Inhale 2 Puffs as instructed every 4 hours as needed for wheezing/shortness of breath. aspirin, enteric coated (ASPIRIN, ENTERIC COATED) 81 mg EC tablet Take 1 tablet by mouth once daily. FAMILY HISTORY Problem Relation Age of Onset Coronary Artery Disease Mother Hypertension Mother Coronary Artery Disease Father Cancer Father lung ca. Hypertension Sister Social History Tobacco Use Smoking status: Former Packs/day: 1.00 Years: 43.00 Pack years: 43.00 Types: Cigarettes Start date: 1963 Quit date: 08/14/2006 Years since quittin.3 Smokeless tobacco: Never Tobacco comments: Parents smoked in childhood home. Spouse ex-smoker, did smoke early in marriage. Vaping Use Vaping Use: Never used Substance Use Topics Alcohol use: Yes Comment: rarely Drug use: No Review of Systems Constitutional: Negative for fever. HENT: Positive for congestion, ear pain, sinus pain and sore throat. Negative for ear discharge and nosebleeds. Respiratory: Positive for cough. Negative for shortness of breath and wheezing. Cardiovascular: Negative for chest pain. Gastrointestinal: Negative for diarrhea and vomiting. Musculoskeletal: Negative for neck pain. Skin: Negative for itching and rash. Objective Blood pressure 146/70, pulse 88, temperature 36.7 C (98.1 F), temperature source Tympanic, resp. rate 16, weight 73.8 kg (162 lb 9.6 oz), SpO2 97 %. Component Latest Ref Rng & Units 02/21/2022 Protein, Total 6.3 - 8.0 g/dL 7.4 Albumin 3.9 - 4.9 g/dL 4.3 Calcium 8.5 - 10.2 mg/dL 10.3 (H) Bilirubin, Total 0.2 - 1.3 mg/dL 0.4 Alkaline Phosphatase 34 - 123 U/L 94 AST 13 - 35 U/L 23 ALT 7 - 38 U/L 14 Glucose 74 - 99 mg/dL 100 (H) BUN 7 - 21 mg/dL 26 (H) Creatinine 0.58 - 0.96 mg/dL 0.80 Sodium 136 - 144 mmol/L 145 (H) Potassium 3.7 - 5.1 mmol/L 4.3 Chloride 97 - 105 mmol/L 104 CO2 22 - 30 mmol/L 29 Anion Gap 9 - 18 mmol/L 12 eGFR >=60 mL/min/1.73m 76 Physical Exam Constitutional: General: She is not in acute distress. Appearance: She is not toxic-appearing or diaphoretic. HENT: Head: Normocephalic and atraumatic. Right Ear: Hearing, tympanic membrane, ear canal and external ear normal. Left Ear: Hearing, tympanic membrane, ear canal and external ear normal. Nose: Right Sinus: Maxillary sinus tenderness and frontal sinus tenderness present. Left Sinus: Maxillary sinus tenderness and frontal sinus tenderness present. Mouth/Throat: Pharynx: Uvula midline. No pharyngeal swelling, oropharyngeal exudate, posterior oropharyngeal erythema or uvula swelling. Eyes: General: Lids are normal. No scleral icterus. Right eye: No discharge. Left eye: No discharge. Conjunctiva/sclera: Conjunctivae normal. Pupils: Pupils are equal, round, and reactive to light. Neck: Trachea: Trachea normal. Cardiovascular: Rate and Rhythm: Normal rate and regular rhythm. Heart sounds: Normal heart sounds. Pulmonary: Effort: Pulmonary effort is normal. Breath sounds: Rhonchi (scattered, clear with cough.) present. No decreased breath sounds, wheezing or rales. Musculoskeletal: Cervical back: Normal range of motion and neck supple. Lymphadenopathy: Cervical: No cervical adenopathy. Right cervical: No superficial cervical adenopathy. Left cervical: No superficial cervical adenopathy. Skin: Findings: No rash. Neurological: Mental Status: She is alert and oriented to person, place, and time. ASSESSMENT/PLAN: 1. Bacterial sinusitis - ICD9: 473.9, 041.9, ICD10: J32.9, B96.89 (primary diagnosis) - Will begin treatment with as per antibiotic as written, see orders - Supportive care with plenty of fluids, rest, and analgesia prn. - Follow up in 3-5 days if symptoms persist or worsen. - AMOXICILLIN 875 MG-POTASSIUM CLAVULANATE 125 MG TABLET 2. Throat pain - ICD9: 784.1, ICD10: R07.0 Strep negative - STREP A MOLECULAR (POC) Boy Trujillo APRN.COMPUTED TOMOGRAPHY TECHNOLOGIST documented in this encounter [facility] 12-28-2022 Miscellaneous Notes Images from the original note were not included. PA is covered by drug plan Maria Esther Medina Ma Prior Authorization has been completed online at [employer] for Celebrex, will await response. SERRANO- [id number] Please keep encounter open until final decision has been received and documented from insurance company. Maria Esther Medina MA documented in this encounter [facility] 12-26-2022 Note HNO ID: [id number] Author: Ketan Saha MD Service: ? Author Type: Physician Type: Progress Notes Filed: 12/26/2022 2:20 PM Note Text: Here for f/u of recurent LICA stenosis and mild pvd. She has undergone a left carotid endarterectomy with dacron patch angioplasty in 2005. Her ABIs were 74% of normal on the right and 76% on the left. Her left carotid is still 60-79% with some disease in the bulb around 50-99%. The right carotid is 40-59%. [facility] , V[facility] [place] DEPARTMENT OF VASCULAR SURGERY OUTPATIENT VISIT DATE December 26, 2022 OUTPATIENT VISIT TYPE ESTABLISHED SERVICE DATE: 12/26/2022 SERVICE TIME: 1:11 PM PRIMARY CARE PHYSICIAN: Marcelo Acosta MD HISTORY OF PRESENT ILLNESS: Ms. Hurst is a 77 year old female who presents today for a vascular surgery follow-up visit. PAST MEDICAL HISTORY Diagnosis Date Abnormal mammogram, unspecified 2009 LEFT BREAST LESION biopsy neg Arthritis of knee 03/01/2013 Arthritis, lumbar spine 06/04/2018 Atherosclerosis of [place] arteries of extremity with intermittent claudication (HCC) 10/16/2017 Bilateral carotid artery stenosis 12/09/2019 Seeing Vascular: US 12/2019 Rt 20-40%, Lt 60-80% Chronic left-sided low back pain with left-sided sciatica 06/18/2018 COVID-19 virus infection 07/21/202106/2021 Degeneration of lumbar or lumbosacral intervertebral disc 04/01/2020 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 oxygen therapy 02/23/2022 See Pulmonary Depression 02/25/2016 Elevated hemoglobin A1c 12/30/2020 Essential hypertension with goal blood pressure less than 140/90 02/25/2016 Ex-smoker 07/07/2006 Started at 18 up to 1 PPD a day quit 2005 Gastroesophageal reflux disease without esophagitis 07/03/2015 Generalized osteoarthrosis, involving multiple sites History of 2019 novel coronavirus disease (COVID-19) 07/22/2020 Positive test 07/21/2020 History of polymyalgia rheumatica 03/21/2011 Kidney stones 10/07/2013 Lumbosacral radiculopathy 04/01/2020 Mixed hyperlipidemia 09/30/2015 Neuropathy 12/17/2020 Lower extremities, NCS/EMG from 12/09/2020 Obesity 03/17/2014 Osteoarthritis of spine with radiculopathy, lumbosacral region 04/01/2020 Osteoarthritis, hand 11/02/2012 Osteopenia 09/14/2010 Personal history of colonic polyps Colon polyps Polycythemia, secondary 03/14/2012 PVD (peripheral vascular disease) ([facility]) 10/17/2016 Restless legs 03/01/2013 Right shoulder pain 06/29/2018 Unspecified deformity of ankle and foot, acquired 09/10/2009 PAST SURGICAL HISTORY Procedure Laterality Date APPENDECTOMY age 9 ARTHRP ACETBLR/PROX FEM PROSTC AGRFT/ALGRFT Right 08/17/2020 Dr. Steve Delarosa ARTHRP KNE CONDYLEANDPLATU MEDIALANDLAT COMPARTMENTS 03/2013 Knee replacement, total, left ARTL CATHJ/CANNULJ MNTR/TRANSFUSION SPX PRQ 09/07/2006 BALLN ANGIOPLASTY PERC,ILIAC 05/01/2007 ILIAC COLONOSCOPY FLX DX W/COLLJ SPEC WHEN PFRMD 2001 Colonoscopy COLONOSCOPY FLX DX W/COLLJ SPEC WHEN PFRMD 2006 Colonoscopy COLONOSCOPY FLX DX W/COLLJ SPEC WHEN PFRMD 05/13/2011 repeat in 10 yrs. COLONOSCOPY SCREENING 09/21/2021 Dr. Campoverde EGD TRANSORAL BIOPSY SINGLE/MULTIPLE 08/12/2011 ESOPHAGOGASTRODUODENOSCOPY TRANSORAL DIAGNOSTIC 2001 EGD FECAL OCCULT BLOOD TEST 10/11/2017 negative INTRO OF NEEDLE OR INTRACATHETER UPR/LXTR ARTERY 05/02/2007 RIGHT CRYSTAL FINISHER INTRO OF NEEDLE OR INTRACATHETER UPR/LXTR ARTERY 05/02/2007 LEFT CRYSTAL FINISHER INTRO OF NEEDLE OR INTRACATHETER UPR/LXTR ARTERY Right 12/15/2016 sfa INTRODUCTION CATHETER AORTA 05/01/2007 INTRODUCTION CATHETER AORTA 05/02/2007 LIG/TRNSXJ FLP TUBE ABDL/VAG APPR UNI/BI Tubal ligation PAST SURGICAL HISTORY OF 07/19/2002 aorto- to left external iliac and to right common femoral artery PAST SURGICAL HISTORY OF 04/2007 Thrombolysis to L Limb of graft, followed by angioplasty and stenting PAST SURGICAL HISTORY OF Right 02/2017 2nd toe amputated d/t hammer toe PAST SURGICAL HISTORY OF Left 12/14/2018 Bunionectomy an 2nd toe amputation PRIM PRQ TRLUML MCHNL THRMBC N-COR N-ICRA 1ST 05/01/2007 REDUCTION OF LARGE BREAST 09/02/2014 SLCTV CATHJ 1ST 2ND ORD THRC/BR[facility] 09/07/2006 RIGHT SLCTV CATHJ 1ST 2ND ORD THRC/BRCH/CPHLC BRNC 09/07/2006 LEFT STEREOTACTIC CORE BIOPSY 09/20/2007 LEFT STEREOTACTIC CORE BIOPSY LEFT BREAST TEAEC W/PATCH GRF CAROTID VERTB SUBCLAV NECK INC 09/07/2006 L CEA TEAEC W/PATCH GRF CAROTID VERTB SUBCLAV NECK INC Endarterectomy, carotid, left TEMPORAL ARTERY BIOSPY 2010 negative TONSILLECTOMY PRIMARY/SECONDARY Tonsillectomy TRANSCATH STENT INIT VESSEL,PERCUT 05/01/2007 TUBAL LIGATION, SOCIAL HISTORY Social History Tobacco Use Smoking status: Former Packs/day: 1.00 Years: 43.00 Pack years: 43.00 Types: Cigarettes Start date: 1963 Quit date: 08/14/2006 Years since quittin.3 Smokeless tobacco: Never Tobacco comments: Parents smoked in childhood home. Spouse ex-smoker, did smok (more content not included)... [facility] 12-26-2022 Note HNO ID: [id number] Author: Rivka Mitchell Service: ? Author Type: ? Type: Progress Notes Filed: 12/26/2022 2:13 PM Note Text: Summary: NANCY RESEARCH DOCUMENTATION OF INFORMED CONSENT Study TItle: Risk Assessment of Stroke Using Non-Invasive Ultrasonic Backscatter from Carotid Plaque ([facility]) IRB#: [id number] PI: Lashae Francis, PhD Phone#: [phone] COORDINATOR/Research Nurse/Mold Sheet Cleaner: Be Vidal, PhD Pager: [phone] Discussed above research protocol with the subject. (Consent form had been previously mailed to patient and it was reviewed prior to visit). The research purpose, requirements and follow up procedures were reviewed and the importance of follow up compliance was stressed. The risks, benefits, alternatives, privacy, confidentiality and costs were discussed. Subject has read and understands the study procedures and requirements. Subject demonstrated understanding of the research study and their questions were addressed and answered. Subject has AGREED to proceed with trial participation. Copy of the signed consent was provided to the subject. Inclusion and Exclusion Criteria for CEA Group: Inclusion Criteria A patient is eligible for the study if all of the following criteria are met: - Age greater than or equal to 40years - 40% or greater carotid stenosis as determined by duplex ultrasound - Evidence of carotid plaque Exclusion Criteria and Contraindications A patient is not eligible for the study if any one of the following is present: - Prior surgery or intervention involving the carotid artery (including CEA and CHANTELLE) - Non-atherosclerotic vascular disease (e.g. fibromuscular dysplasia or systemic vasculitis) - Unable to provide informed consent - Unable to understand Chinese language. Research Ultrasound performed following standard of care ultrasound. Rivka Mitchell [facility] 12-26-2022 History of Presen t illness Narrative Images from the original note were not included. Here for f/u of recurent LICA stenosis and mild pvd. She has undergone a left carotid endarterectomy with dacron patch angioplasty in 2005. Her ABIs were 74% of normal on the right and 76% on the left. Her left carotid is still 60-79% with some disease in the bulb around 50-99%. The right carotid is 40-59%. [facility] [place] DEPARTMENT OF VASCULAR SURGERY OUTPATIENT VISIT DATE December 26, 2022 OUTPATIENT VISIT TYPE ESTABLISHED SERVICE DATE: 12/26/2022 SERVICE TIME: 1:11 PM PRIMARY CARE PHYSICIAN: Marcelo Acosta MD HISTORY OF PRESENT ILLNESS: Ms. Hurst is a 77 year old female who presents today for a vascular surgery follow-up visit. PAST MEDICAL HISTORY Diagnosis Date Abnormal mammogram, unspecified 2009 LEFT BREAST LESION biopsy neg Arthritis of knee 03/01/2013 Arthritis, lumbar spine 06/04/2018 Atherosclerosis of [place] arteries of extremity with intermittent claudication (HCC) 10/16/2017 Bilateral carotid artery stenosis 12/09/2019 Seeing Vascular: US 12/2019 Rt 20-40%, Lt 60-80% Chronic left-sided low back pain with left-sided sciatica 06/18/2018 COVID-19 virus infection 07/21/202106/2021 Degeneration of lumbar or lumbosacral intervertebral disc 04/01/2020 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 oxygen therapy 02/23/2022 See Pulmonary Depression 02/25/2016 Elevated hemoglobin A1c 12/30/2020 Essential hypertension with goal blood pressure less than 140/90 02/25/2016 Ex-smoker 07/07/2006 Started at 18 up to 1 PPD a day quit 2005 Gastroesophageal reflux disease without esophagitis 07/03/2015 Generalized osteoarthrosis, involving multiple sites History of 2019 novel coronavirus disease (COVID-19) 07/22/2020 Positive test 07/21/2020 History of polymyalgia rheumatica 03/21/2011 Kidney stones 10/07/2013 Lumbosacral radiculopathy 04/01/2020 Mixed hyperlipidemia 09/30/2015 Neuropathy 12/17/2020 Lower extremities, NCS/EMG from 12/09/2020 Obesity 03/17/2014 Osteoarthritis of spine with radiculopathy, lumbosacral region 04/01/2020 Osteoarthritis, hand 11/02/2012 Osteopenia 09/14/2010 Personal history of colonic polyps Colon polyps Polycythemia, secondary 03/14/2012 PVD (peripheral vascular disease) (HCC) 10/17/2016 Restless legs 03/01/2013 Right shoulder pain 06/29/2018 Unspecified deformity of ankle and foot, acquired 09/10/2009 PAST SURGICAL HISTORY Procedure Laterality Date APPENDECTOMY age 9 ARTHRP ACETBLR/PROX FEM PROSTC AGRFT/ALGRFT Right 08/17/2020 Dr. Steve Delarosa ARTHRP KNE CONDYLE&PLATU MEDIAL&LAT COMPARTMENTS 03/2013 Knee replacement, total, left ARTL CATHJ/CANNULJ MNTR/TRANSFUSION SPX PRQ 09/07/2006 BALLN ANGIOPLASTY PERC,ILIAC 05/01/2007 ILIAC COLONOSCOPY FLX DX W/COLLJ SPEC WHEN PFRMD 2001 Colonoscopy COLONOSCOPY FLX DX W/COLLJ SPEC WHEN PFRMD 2006 Colonoscopy COLONOSCOPY FLX DX W/COLLJ SPEC WHEN PFRMD 05/13/2011 repeat in 10 yrs. COLONOSCOPY SCREENING 09/21/2021 Dr. Campoverde EGD TRANSORAL BIOPSY SINGLE/MULTIPLE 08/12/2011 ESOPHAGOGASTRODUODENOSCOPY TRANSORAL DIAGNOSTIC 2001 EGD FECAL OCCULT BLOOD TEST 10/11/2017 negative INTRO OF NEEDLE OR INTRACATHETER UPR/LXTR ARTERY 05/02/2007 RIGHT CRYSTAL FINISHER INTRO OF NEEDLE OR INTRACATHETER UPR/LXTR ARTERY 05/02/2007 LEFT CRYSTAL FINISHER INTRO OF NEEDLE OR INTRACATHETER UPR/LXTR ARTERY Right 12/15/2016 sfa INTRODUCTION CATHETER AORTA 05/01/2007 INTRODUCTION CATHETER AORTA 05/02/2007 LIG/TRNSXJ FLP TUBE ABDL/VAG APPR UNI/BI Tubal ligation PAST SURGICAL HISTORY OF 07/19/2002 aorto- to left external iliac and to right common femoral artery PAST SURGICAL HISTORY OF 04/2007 Thrombolysis to L Limb of graft, followed by angioplasty and stenting PAST SURGICAL HISTORY OF Right 02/2017 2nd toe amputated d/t hammer toe PAST SURGICAL HISTORY OF Left 12/14/2018 Bunionectomy an 2nd toe amputation PRIM PRQ TRLUML MCHNL THRMBC N-COR N-ICRA 1ST 05/01/2007 REDUCTION OF LARGE BREAST 09/02/2014 SLCTV CATHJ 1ST 2ND ORD THRC/BRCH/CPHLC BRNCH 09/07/2006 RIGHT SLCTV CATHJ 1ST 2ND ORD THRC/BRCH/CPHLC BRNCH 09/07/2006 LEFT STEREOTACTIC CORE BIOPSY 09/20/2007 LEFT STEREOTACTIC CORE BIOPSY LEFT BREAST TEAEC W/PATCH GRF CAROTID VERTB SUBCLAV NECK INC 09/07/2006 L CEA TEAEC W/PATCH GRF CAROTID VERTB SUBCLAV NECK INC Endarterectomy, carotid, left TEMPORAL ARTERY BIOSPY 2011 negative TONSILLECTOMY PRIMARY/SECONDARY <AGE 12 Tonsillectomy TRANSCATH STENT INIT VESSEL,PERCUT 05/01/2007 TUBAL LIGATION, SOCIAL HISTORY Social History Tobacco Use Smoking status: Former Packs/day: 1.00 Years: 43.00 Pack years: 43.00 Types: Cigarettes Start date: 1963 Quit date: 08/14/2006 Years since quittin.3 Smokeless tobacco: Never Tobacco comments: Parents smoked in childhood home. Spouse ex-smoker, did smoke early in marriage. Vaping Use Vaping Use: Never used Substance Use Topics Alcohol use: Yes Comment: rarely Drug use: No MEDICATIONS: celecoxib (CELEBREX) 200 mg capsule Take 1 capsule by mouth twice daily. hydroCHLOROthiazide (HYDRODIURIL, ESIDRIX) 25 mg tablet Take 1 tablet by mouth once daily. rosuvastatin (CRESTOR) 40 mg tablet Take 1 tablet by mouth every evening. pramipexole (MIRAPEX) 0.5 mg tablet Take 1 tablet by mouth twice daily. DULoxetine (CYMBALTA) 30 mg capsule Take 1 capsule by mouth once daily. In the AM potassium chloride ER (K-DUR, KLOR-CON) 20 mEq tablet Take 1 tablet by mouth twice daily. lansoprazole (PREVACID) 30 mg capsule Take 1 capsule by mouth once daily. DULoxetine (CYMBALTA) 60 mg capsule Take 1 capsule by mouth once daily. In the evening dilTIAZem CR (TIAZAC, TAZTIA XT) 180 mg 24 hr capsule Take 1 capsule by mouth once daily. Blood Pressure Test Kit-Large (QUICK RESPONSE BP MONITOR) 1 Each once daily. cyclobenzaprine (FLEXERIL) 5 mg tablet Take 1 tablet by mouth three times daily as needed for muscle spasm. alendronate (FOSAMAX) 70 mg tablet Take 1 tablet by mouth one time a week. Take with a full glass of water, on an empty stomach; do NOT lie down for 30minutes. albuterol (PROVENTIL) 2.5 mg /3 mL (0.083 %) nebulizer solution Use 3 mL via nebulizer every 4 hours as needed for wheezing/shortness of breath. Use over 5-15minutes. albuterol HFA (PROAIR HFA) 90 mcg/actuation inhaler Inhale 2 Puffs as instructed every 4 hours as needed for wheezing/shortness of breath. aspirin, enteric coated (ASPIRIN, ENTERIC COATED) 81 mg EC tablet Take 1 tablet by mouth once daily. ALLERGIES: ALLERGIES Allergen Reactions Demerol [Meperidine* Swelling tongue swelled Lisinopril GI Upset Ceclor [Cefaclor] Other: See Comments heart palpitations Doxycycline GI Upset Grass Pollen Itching Lipitor [Atorvastat* Intolerance, GI Upset Nauseated. Like I had the flu all the time Poison Adelaide Hives Diagnostic tests reviewed for today's visit: Most recent imaging JAYLEEN stable R 0.71 L 0.74 carotid stable reimage in one year IMPRESSION and PLAN: This office note has been dictated. STAFF PHYSICIAN: Ketan Saha MD DATE OF SERVICE: December 26, 2022 TIME OF SERVICE: 1:11 PM documented in this encounter [facility] 12-26-2022 Note HNO ID: [id number] Author: Ketan Saha MD Service: Vascular Surgery Author Type: Physician Type: Progress Notes Filed: 12/27/2022 2:16 PM Note Text: NAME: JOYCE HURST [facility] NO: [id number] DATE OF SERVICE: 12/26/2022 DATE OF : 1945 She has had no strokes, ministrokes or amaurosis fugax. She has had no other new events. Her labs and imaging are stable. Impression/Plan: We will plan on rechecking her with a carotid duplex and ABIs again in one year's time. Ketan Saha M.D. SPL/089 Audio #: [id number] Date Dictated: 12/26/2022 14:19:52 Date Typed: 12/27/2022 10:46:16 Date Revised: [facility] 12-22-2022 Miscellaneous Notes Detailed message left for patient re: same. Sumaya Moran LPN Called [employer], the machine was returned with no data. They have attempted to contact the patient to retest and have not been able to reach her. Will attempt again today. Sumaya Moran LPN Result request sent to [facility]. Sumaya Moran LPN Pt calling for results of recent sleep study completed beginning of Nov. Please review and advise. Thank you. Jodee Wilhelm RN documented in this encounter [facility] 12-20-2022 Miscellaneous Notes The following approved medication requests have been transmitted electronically. Requested Prescriptions Signed Prescriptions Disp Refills celecoxib (CELEBREX) 200 mg capsule 180 capsule 1 Sig: Take 1 capsule by mouth twice daily. Authorizing Provider: MARCELO ACOSTA hydroCHLOROthiazide (HYDRODIURIL, ESIDRIX) 25 mg tablet 90 tablet 1 Sig: Take 1 tablet by mouth once daily. Authorizing Provider: MARCELO ACOSTA rosuvastatin (CRESTOR) 40 mg tablet 90 tablet 1 Sig: Take 1 tablet by mouth every evening. Authorizing Provider: MARCELO ACOSTA pramipexole (MIRAPEX) 0.5 mg tablet 180 tablet 1 Sig: Take 1 tablet by mouth twice daily. Authorizing Provider: MARCELO ACOSTA DULoxetine (CYMBALTA) 30 mg capsule 90 capsule 1 Sig: Take 1 capsule by mouth once daily. In the AM Authorizing Provider: MARCELO ACSOTA MD Last office visit: 10/31/22 F/u scheduled: 01/04/23 Magy Morton Ma documented in this encounter [facility] 11-22-2022 Miscellaneous Notes Order for nocturnal oximetry was faxed to [facility] on date of appointment (11/10). Likely DME has not had a unit available to send to patient/patient is on waiting list for next available unit. She could certainly reach out to [facility] to confirm\ wait time. Detailed message left for patient re: same. Sumaya Moran LPN Patient calls office, states she has not received equipment from [facility] to do nocturnal oximetry study. Asking what to do? Was order sent? documented in this encounter [facility] 11-10-2022 Note HNO ID: [id number] Author: Maureen Weathers PA-C Service: ? Author Type: Physician Cut Out Press Operator Type: Progress Notes Filed: 11/10/2022 9:32 AM Note Text: Patient: Joyce Hurst PCP: Marcelo Acosta MD CC: Post Covid syndrome/lung nodules HPI: Joyce Hurst 77 year old female former smoker, 43 pack years (quitting 2005) with PMH significant for bilateral carotid artery stenosis, HTN, GERD, OA, hyperlipidemia, PAD, PVD, and Covid 19 pneumonia requiring hospitalization at [facility] in June 2021. Treated with dexamethasone and discharged home on supplemental oxygen. Today, patient states she is almost back to pre-Covid baseline. I am back to 95%. Occasional non-productive cough. No hemoptysis. Infrequent wheezing. No dyspnea at rest. Exertional dyspnea has not changed. Currently wearing 2 L supplemental oxygen at night. DME: [facility] PAST MEDICAL HISTORY Diagnosis Date Abnormal mammogram, unspecified 2009 LEFT BREAST LESION biopsy neg Arthritis of knee 03/01/2013 Arthritis, lumbar spine 06/04/2018 Atherosclerosis of [place] arteries of extremity with intermittent claudication (HCC) 10/16/2017 Bilateral carotid artery stenosis 12/09/2019 Seeing Vascular: US 12/2019 Rt 20-40%, Lt 60-80% Chronic left-sided low back pain with left-sided sciatica 06/18/2018 COVID-19 virus infection 07/21/202106/2021 Degeneration of lumbar or lumbosacral intervertebral disc 04/01/2020 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 oxygen therapy 02/23/2022 See Pulmonary Depression 02/25/2016 Elevated hemoglobin A1c 12/30/2020 Essential hypertension with goal blood pressure less than 140/90 02/25/2016 Ex-smoker 07/07/2006 Started at 18 up to 1 PPD a day quit 2005 Gastroesophageal reflux disease without esophagitis 07/03/2015 Generalized osteoarthrosis, involving multiple sites History of 2019 novel coronavirus disease (COVID-19) 07/22/2020 Positive test 07/21/2020 History of polymyalgia rheumatica 03/21/2011 Kidney stones 10/07/2013 Lumbosacral radiculopathy 04/01/2020 Mixed hyperlipidemia 09/30/2015 Neuropathy 12/17/2020 Lower extremities, NCS/EMG from 12/09/2020 Obesity 03/17/2014 Osteoarthritis of spine with radiculopathy, lumbosacral region 04/01/2020 Osteoarthritis, hand 11/02/2012 Osteopenia 09/14/2010 Personal history of colonic polyps Colon polyps Polycythemia, secondary 03/14/2012 PVD (peripheral vascular disease) ([facility]) 10/17/2016 Restless legs 03/01/2013 Right shoulder pain 06/29/2018 Unspecified deformity of ankle and foot, acquired 09/10/2009 Allergies: Demerol [Meperidine* Swelling Comment:tongue swelled Lisinopril GI Upset Ceclor [Cefaclor] Other: See Comments Comment:heart palpitations Doxycycline GI Upset Grass Pollen Itching Lipitor [Atorvastat* Intolerance, GI Upset Comment: Nauseated. Like I had the flu all the time Poison Adelaide Hives potassium chloride ER (K-DUR, KLOR-CON) 20 mEq tablet Take 1 tablet by mouth twice daily. lansoprazole (PREVACID) 30 mg capsule Take 1 capsule by mouth once daily. DULoxetine (CYMBALTA) 30 mg capsule Take 1 capsule by mouth once daily. In the AM DULoxetine (CYMBALTA) 60 mg capsule Take 1 capsule by mouth once daily. In the evening dilTIAZem CR (TIAZAC, TAZTIA XT) 180 mg 24 hr capsule Take 1 capsule by mouth once daily. Blood Pressure Test Kit-Large (QUICK RESPONSE BP MONITOR) 1 Each once daily. celecoxib (CELEBREX) 200 mg capsule Take 1 capsule by mouth twice daily. hydroCHLOROthiazide (HYDRODIURIL, ESIDRIX) 25 mg tablet Take 1 tablet by mouth once daily. rosuvastatin (CRESTOR) 40 mg tablet Take 1 tablet by mouth every evening. pramipexole (MIRAPEX) 0.5 mg tablet Take 1 tablet by mouth twice daily. cyclobenzaprine (FLEXERIL) 5 mg tablet Take 1 tablet by mouth three times daily as needed for muscle spasm. alendronate (FOSAMAX) 70 mg tablet Take 1 tablet by mouth one time a week. Take with a full glass of water, on an empty stomach; do NOT lie down for 30minutes. albuterol (PROVENTIL) 2.5 mg /3 mL (0.083 %) nebulizer solution Use 3 mL via nebulizer every 4 hours as needed for wheezing/shortness of breath. Use over 5-15minutes. albuterol HFA (PROAIR HFA) 90 mcg/actuation inhaler Inhale 2 Puffs as instructed every 4 hours as needed for wheezing/shortness of breath. aspirin, enteric coated (ASPIRIN, ENTERIC COATED) 81 mg EC tablet Take 1 tablet by mouth once daily. Social History Tobacco Use Smoking status: Former Packs/day: 1.00 Years: 43.00 Pack years: 43.00 Types: Cigarettes Start date: 1963 Quit date: 08/14/2006 Years since quittin.2 Smokeless tobacco: Never Tobacco comments: Parents smoked in childhood home. Spouse ex-smoker, did smoke early in marriage. Vaping Use Vaping Use: Never used Substance Use Topics Alcohol use: Yes Comment: rarely Drug use: No Family History Problem Relation Age of Onset Coronary Artery Disease Mother Hypertension M (more content not included)... [facility] 11-10-2022 History of Presen t illness Narrative Patient: Joyce Hurst PCP: Marcelo Acosta MD CC: Post Covid syndrome/lung nodules HPI: Joyce Hurst 77 year old female former smoker, 43 pack years (quitting 2005) with PMH significant for bilateral carotid artery stenosis, HTN, GERD, OA, hyperlipidemia, PAD, PVD, and Covid 19 pneumonia requiring hospitalization at [facility] in June 2021. Treated with dexamethasone and discharged home on supplemental oxygen. Today, patient states she is almost back to pre-Covid baseline. I am back to 95%. Occasional non-productive cough. No hemoptysis. Infrequent wheezing. No dyspnea at rest. Exertional dyspnea has not changed. Currently wearing 2 L supplemental oxygen at night. DME: [employer] PAST MEDICAL HISTORY Diagnosis Date Abnormal mammogram, unspecified 2009 LEFT BREAST LESION biopsy neg Arthritis of knee 03/01/2013 Arthritis, lumbar spine 06/04/2018 Atherosclerosis of [place] arteries of extremity with intermittent claudication (HCC) 10/16/2017 Bilateral carotid artery stenosis 12/09/2019 Seeing Vascular: US 12/2019 Rt 20-40%, Lt 60-80% Chronic left-sided low back pain with left-sided sciatica 06/18/2018 COVID-19 virus infection 07/21/202106/2021 Degeneration of lumbar or lumbosacral intervertebral disc 04/01/2020 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 oxygen therapy 02/23/2022 See Pulmonary Depression 02/25/2016 Elevated hemoglobin A1c 12/30/2020 Essential hypertension with goal blood pressure less than 140/90 02/25/2016 Ex-smoker 07/07/2006 Started at 18 up to 1 PPD a day quit 2005 Gastroesophageal reflux disease without esophagitis 07/03/2015 Generalized osteoarthrosis, involving multiple sites History of 2019 novel coronavirus disease (COVID-19) 07/22/2020 Positive test 07/21/2020 History of polymyalgia rheumatica 03/21/2011 Kidney stones 10/07/2013 Lumbosacral radiculopathy 04/01/2020 Mixed hyperlipidemia 09/30/2015 Neuropathy 12/17/2020 Lower extremities, NCS/EMG from 12/09/2020 Obesity 03/17/2014 Osteoarthritis of spine with radiculopathy, lumbosacral region 04/01/2020 Osteoarthritis, hand 11/02/2012 Osteopenia 09/14/2010 Personal history of colonic polyps Colon polyps Polycythemia, secondary 03/14/2012 PVD (peripheral vascular disease) (HCC) 10/17/2016 Restless legs 03/01/2013 Right shoulder pain 06/29/2018 Unspecified deformity of ankle and foot, acquired 09/10/2009 Allergies: Demerol [Meperidine* Swelling Comment:tongue swelled Lisinopril GI Upset Ceclor [Cefaclor] Other: See Comments Comment:heart palpitations Doxycycline GI Upset Grass Pollen Itching Lipitor [Atorvastat* Intolerance, GI Upset Comment: Nauseated. Like I had the flu all the time Poison Adelaide Hives potassium chloride ER (K-DUR, KLOR-CON) 20 mEq tablet Take 1 tablet by mouth twice daily. lansoprazole (PREVACID) 30 mg capsule Take 1 capsule by mouth once daily. DULoxetine (CYMBALTA) 30 mg capsule Take 1 capsule by mouth once daily. In the AM DULoxetine (CYMBALTA) 60 mg capsule Take 1 capsule by mouth once daily. In the evening dilTIAZem CR (TIAZAC, TAZTIA XT) 180 mg 24 hr capsule Take 1 capsule by mouth once daily. Blood Pressure Test Kit-Large (QUICK RESPONSE BP MONITOR) 1 Each once daily. celecoxib (CELEBREX) 200 mg capsule Take 1 capsule by mouth twice daily. hydroCHLOROthiazide (HYDRODIURIL, ESIDRIX) 25 mg tablet Take 1 tablet by mouth once daily. rosuvastatin (CRESTOR) 40 mg tablet Take 1 tablet by mouth every evening. pramipexole (MIRAPEX) 0.5 mg tablet Take 1 tablet by mouth twice daily. cyclobenzaprine (FLEXERIL) 5 mg tablet Take 1 tablet by mouth three times daily as needed for muscle spasm. alendronate (FOSAMAX) 70 mg tablet Take 1 tablet by mouth one time a week. Take with a full glass of water, on an empty stomach; do NOT lie down for 30minutes. albuterol (PROVENTIL) 2.5 mg /3 mL (0.083 %) nebulizer solution Use 3 mL via nebulizer every 4 hours as needed for wheezing/shortness of breath. Use over 5-15minutes. albuterol HFA (PROAIR HFA) 90 mcg/actuation inhaler Inhale 2 Puffs as instructed every 4 hours as needed for wheezing/shortness of breath. aspirin, enteric coated (ASPIRIN, ENTERIC COATED) 81 mg EC tablet Take 1 tablet by mouth once daily. Social History Tobacco Use Smoking status: Former Packs/day: 1.00 Years: 43.00 Pack years: 43.00 Types: Cigarettes Start date: 1963 Quit date: 08/14/2006 Years since quittin.2 Smokeless tobacco: Never Tobacco comments: Parents smoked in childhood home. Spouse ex-smoker, did smoke early in marriage. Vaping Use Vaping Use: Never used Substance Use Topics Alcohol use: Yes Comment: rarely Drug use: No Family History Problem Relation Age of Onset Coronary Artery Disease Mother Hypertension Mother Coronary Artery Disease Father Cancer Father lung ca. Hypertension Sister PAST SURGICAL HISTORY Procedure Laterality Date APPENDECTOMY age 9 ARTHRP ACETBLR/PROX FEM PROSTC AGRFT/ALGRFT Right 08/17/2020 Dr. Steve Delarosa ARTHRP KNE CONDYLE&PLATU MEDIAL&LAT COMPARTMENTS 03/2013 Knee replacement, total, left ARTL CATHJ/CANNULJ MNTR/TRANSFUSION SPX PRQ 09/07/2006 BALLN ANGIOPLASTY PERC,ILIAC 05/01/2007 ILIAC COLONOSCOPY FLX DX W/COLLJ SPEC WHEN PFRMD 2001 Colonoscopy COLONOSCOPY FLX DX W/COLLJ SPEC WHEN PFRMD 2006 Colonoscopy COLONOSCOPY FLX DX W/COLLJ SPEC WHEN PFRMD 05/13/2011 repeat in 10 yrs. COLONOSCOPY SCREENING 09/21/2021 Dr. Campoverde EGD TRANSORAL BIOPSY SINGLE/MULTIPLE 08/12/2011 ESOPHAGOGASTRODUODENOSCOPY TRANSORAL DIAGNOSTIC 2001 EGD FECAL OCCULT BLOOD TEST 10/11/2017 negative INTRO OF NEEDLE OR INTRACATHETER UPR/LXTR ARTERY 05/02/2007 RIGHT CRYSTAL FINISHER INTRO OF NEEDLE OR INTRACATHETER UPR/LXTR ARTERY 05/02/2007 LEFT CRYSTAL FINISHER INTRO OF NEEDLE OR INTRACATHETER UPR/LXTR ARTERY Right 12/15/2016 sfa INTRODUCTION CATHETER AORTA 05/01/2007 INTRODUCTION CATHETER AORTA 05/02/2007 LIG/TRNSXJ FLP TUBE ABDL/VAG APPR UNI/BI Tubal ligation PAST SURGICAL HISTORY OF 07/19/2002 aorto- to left external iliac and to right common femoral artery PAST SURGICAL HISTORY OF 04/2007 Thrombolysis to L Limb of graft, followed by angioplasty and stenting PAST SURGICAL HISTORY OF Right 02/2017 2nd toe amputated d/t hammer toe PAST SURGICAL HISTORY OF Left 12/14/2018 Bunionectomy an 2nd toe amputation PRIM PRQ TRLUML MCHNL THRMBC N-COR N-ICRA 1ST 05/01/2007 REDUCTION OF LARGE BREAST 09/02/2014 SLCTV CATHJ 1ST 2ND ORD THRC/BRCH/CPHLC BRNCH 09/07/2006 RIGHT SLCTV CATHJ 1ST 2ND ORD THRC/BRCH/CPHLC [facility] 09/07/2006 LEFT STEREOTACTIC CORE BIOPSY 09/20/2007 LEFT STEREOTACTIC CORE BIOPSY LEFT BREAST TEAEC W/PATCH GRF CAROTID VERTB SUBCLAV NECK INC 09/07/2006 L CEA TEAEC W/PATCH GRF CAROTID VERTB SUBCLAV NECK INC Endarterectomy, carotid, left TEMPORAL ARTERY BIOSPY 2010 negative TONSILLECTOMY PRIMARY/SECONDARY <AGE 12 Tonsillectomy TRANSCATH STENT INIT VESSEL,PERCUT 05/01/2007 TUBAL LIGATION, I reviewed the past medical history, family history, social history and surgical history with changes noted above and updated in EMR. IMMUNIZATIONS Prevnar - 03/06/2015 Pneumovax - 03/31/2022, 03/14/2013, 03/16/2010 Influenza - 08/25/2022 COVID-19 - 10/26/2022, 03/31/2022, 10/20/2021, 01/20/2021, 12/30/2020 ROS: General: Generally feels well. Appetite good. Eyes, Ears, nose, throat: No post nasal drip, rhinorrhea, purulent nasal discharge, epistaxis. No hoarseness. Vision stable. Cardiac: No angina, edema, orthopnea. Resp: See HPI. GI: No heartburn, dysphagia. No diarrhea. Musculoskeletal: No pain. Neuro: No headache, focal weakness, tremor. Skin: No rash. Otherwise negative. PHYSICAL EXAMINATION: BP 142/74 (BP Site: Right Arm, BP Position: Sitting, BP Cuff Size: Regular Adult) Pulse 74 Temp 36.2 C (97.1 F) (Temporal) Resp 16 Ht 144.8 cm (4' 9 ) Wt 74.4 kg (164 lb) SpO2 97% BMI 35.49 kg/m Gen: No acute distress. Cooperative with examination. HEENT: Normocephalic. Sclera, conjunctiva clear. Oral hygeine and dentition good. Pharynx clear. Resp: No stridor, accessory respiratory muscle use, supra-sternal or intercostal retractions. No wheezes, crackles. CV: Regular rythm. Heart tones normal. Radial pulses normal. Abd: Non distended. MSK: No kyphoscoliosis. Ext: Warm and well perfused. No clubbing, cyanosis, edema. Skin: No rash, ecchymoses. Neuro: Mental status normal. Affect normal. No tremor. DATA: PFT, 08/27/2021 IMPRESSION: Spirometry shows no obstruction. The vital capacity, FEV1 and FEV1/FVC ratio are normal. The diffusing capacity is mildly reduced. The presence of a reduced lung diffusion capacity - that normalizes when measured independent of alveolar volume (kCO) is consistent with a nonparenchymal disorder but does not rule out parenchymal or pulmonary vascular disorder. The diffusing capacity independent of alveolar volume (kCO), is normal. Electronically Signed On 08-27-2021 12:25:19 EDT by Yimi Casey Nocturnal Oximetry, , 01/03/2022 Recording interval: 11:17:20 High pulse: 103 Low pulse: 58 Highest spO2: 97% Lowest spO2: 84% Time with spO2 < 88%: 10.[address] chest, 11/03/2022 IMPRESSION: Numerous bilateral lung nodules measuring up to 4 mm. No definite new nodules seen. Stable borderline enlarged prevascular lymph node. Abdominal findings as described above. Comparison: CT chest on 12/01/2021 RESULT: Limitations: None. Lines, tubes, and devices: None. Lung parenchyma and airways: The central airways are patent. There are numerous bilateral lung nodules. For example, there are nodules in the left lung measuring up to 4 mm, series 6 images 56, 75, 91, 98, 117, 152, and 139. There are nodules in the right lung measuring up to 4 mm, series 6 images 40, 74, 77, 85, 101, 113, 136 and 139. These nodules are better visualized on the current study. No definite new nodules seen. No masses. There are atelectatic changes in the right lower lobe, likely associated with right sided Bochdalek hernia. Pleural space: No pleural effusion. No pleural thickening. Lower neck, lymph nodes, and mediastinum: The imaged thyroid gland is normal. No supraclavicular or axillary lymphadenopathy. There is a stable borderline enlarged prevascular lymph node. No progressive lymphadenopathy. A small hiatal hernia is present. Right-sided Bochdalek hernia as described above. Heart, pericardium, and thoracic vessels: Stable cardiac chambers, thoracic aorta and central pulmonary arteries. There are atherosclerotic calcifications in the thoracic aorta and coronary circulations. No pleural effusion/thickening. Bones and soft tissues: Stable calcified lesion in the right breast. The spine shows degenerative changes with multilevel disc space narrowing. No destructive osseous lesions appreciated. Upper abdomen: Limited study through the upper abdomen demonstrates distended gallbladder, only partially visualized. There appears to be a left renal calculus, only partially visualized. General Merchandise Manager (topogram) images: No additional findings. ASSESSMENT/PLAN: 1. 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 Will check nocturnal oximetry on RA. - OXIMETRY - NOCTURNAL 2. Oxygen dependent - ICD9: V46.2, ICD10: Z99.81 See #1. - OXIMETRY - NOCTURNAL 3. Lung nodules - ICD9: 793.19, ICD10: R91.8 <6 mm nodules stable since 08/2021. Next CT chest in 1 year. Goal is 2 years stability. - CT CHEST WO IVCON Maureen Weathers PA-C documented in this encounter [facility] 11-03-2022 History of Presen t illness Narrative Radiology Service Progress Note PATIENT NAME: Joyce Hurst DATE OF SERVICE: November 03, 2022 TIME: 9:40 AM PATIENT IDENTITY VERIFICATION COMPLETED USING TWO (2) IDENTIFIERS: Name and Date of confirmed by patient verbally. FALL SCREENING: Has the patient had 2 falls in the last year or 1 fall with injury or currently using an Ambulatory Assistive Device (Walker, Cane, Wheelchair, Crutches, etc.)? No PATIENT GENDER DATA: Female. status: : No status: NO. PATIENT RELEVANT IMPLANT DATA REVIEWED: Yes RADIOLOGY DEPARTMENT: CT; Exam(s) Completed: Chest PERIPHERAL IV DATA: Not applicable SIGNED BY: RT Marivel(R) November 03, 2022 9:40 AM documented in this encounter [facility] 10-31-2022 Instructions Radha Jett APRN.CNP - 10/31/2022 10:45 AM EST Drink plenty of fluids Continue tylenol for fever management 3. BLAND DIET If you are experiencing nausea or vomiting, you may want to try to eat some of the following foods. You May Eat: Well-cooked soft cereals Mashed potatoes Plain toast or bread, crackers Soup Plain Spaghetti Rice Macaroni (with cheese) Cottage Cheese Puddings Lowfat yogurts Lowfat Milk Vanilla ice milk Canned fruit (except pineapple) Very ripe bananas Apples without peels Plain meats (chicken, lean beef, turkey, fish-not fried) Cooked Vegetables (avoid gas formers like cabbage, beans and broccoli) Avoid dairy products if you are having diarrhea Do Not Eat: Chocolate Mustard Celery Peppermint Hot dogs Cabbage Pickles Hamburgers Fried foods Pastries Lunch meat Pizza Lettuce Potato chips, etc. Nuts, candies (or other concentrated sweets) Spicy or highly seasoned foods, i.e., Pepper, paprika, chili, tacos, garlic, onions documented in this encounter [facility] 10-31-2022 History of Presen t illness Narrative Chief Complaint Patient presents with: Shortness of Breath Fatigue HPI Joyce Hurst is a 77 year old female who presents here today for Above Complaints.. Patient presents for nausea and vomiting and headache. Patient reports that she last threw up on Monday and has had a headache since. Patient reports that she is staying hydrated, able to eat soup. Tolerating bland diet well. Patient reports that she had sharp abdominal pain on the left side during emesis but this has since resolved. Patient reports normal bowel movements, urinating normally, no abdominal pain currently. Patient noted to be febrile however states that she is improved from how she felt over the weekend. Past medical history, appointments, medications, allergies reviewed. 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-sided sciatica 06/18/2018 COVID-19 virus infection 07/21/202106/2021 Degeneration of lumbar or lumbosacral intervertebral disc 04/01/2020 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 oxygen therapy 02/23/2022 See Pulmonary Depression 02/25/2016 Elevated hemoglobin A1c 12/30/2020 Essential hypertension with goal blood pressure less than 140/90 02/25/2016 Ex-smoker 07/07/2006 Started at 18 up to 1 PPD a day quit 2005 Gastroesophageal reflux disease without esophagitis 07/03/2015 Generalized osteoarthrosis, involving multiple sites History of 2019 novel coronavirus disease (COVID-19) 07/22/2020 Positive test 07/21/2020 History of polymyalgia rheumatica 03/21/2011 Kidney stones 10/07/2013 Lumbosacral radiculopathy 04/01/2020 Mixed hyperlipidemia 09/30/2015 Neuropathy 12/17/2020 Lower extremities, NCS/EMG from 12/09/2020 Obesity 03/17/2014 Osteoarthritis of spine with radiculopathy, lumbosacral region 04/01/2020 Osteoarthritis, hand 11/02/2012 Osteopenia 09/14/2010 Personal history of colonic polyps Colon polyps Polycythemia, secondary 03/14/2012 PVD (peripheral vascular disease) ([facility]) 10/17/2016 Restless legs 03/01/2013 Right shoulder pain 06/29/2018 Unspecified deformity of ankle and foot, acquired 09/10/2009 Previous Surgical History PAST SURGICAL HISTORY Procedure Laterality Date APPENDECTOMY age 9 ARTHRP ACETBLR/PROX FEM PROSTC AGRFT/ALGRFT Right 08/17/2020 Dr. Steve Delarosa ARTHRP KNE CONDYLE&PLATU MEDIAL&LAT COMPARTMENTS 03/2013 Knee replacement, total, left ARTL CATHJ/CANNULJ MNTR/TRANSFUSION SPX PRQ 09/07/2006 BALLN ANGIOPLASTY PERC,ILIAC 05/01/2007 ILIAC COLONOSCOPY FLX DX W/COLLJ SPEC WHEN PFRMD 2001 Colonoscopy COLONOSCOPY FLX DX W/COLLJ SPEC WHEN PFRMD 2006 Colonoscopy COLONOSCOPY FLX DX W/COLLJ SPEC WHEN PFRMD 05/13/2011 repeat in 10 yrs. COLONOSCOPY SCREENING 09/21/2021 Dr. Campoverde EGD TRANSORAL BIOPSY SINGLE/MULTIPLE 08/12/2011 ESOPHAGOGASTRODUODENOSCOPY TRANSORAL DIAGNOSTIC 2001 EGD FECAL OCCULT BLOOD TEST 10/11/2017 negative INTRO OF NEEDLE OR INTRACATHETER UPR/LXTR ARTERY 05/02/2007 RIGHT CRYSTAL FINISHER INTRO OF NEEDLE OR INTRACATHETER UPR/LXTR ARTERY 05/02/2007 LEFT CRYSTAL FINISHER INTRO OF NEEDLE OR INTRACATHETER UPR/LXTR ARTERY Right 12/15/2016 [facility] INTRODUCTION CATHETER AORTA 05/01/2007 INTRODUCTION CATHETER AORTA 05/02/2007 LIG/TRNSXJ FLP TUBE ABDL/VAG APPR UNI/BI Tubal ligation PAST SURGICAL HISTORY OF 07/19/2002 aorto- to left external iliac and to right common femoral artery PAST SURGICAL HISTORY OF 04/2007 Thrombolysis to L Limb of graft, followed by angioplasty and stenting PAST SURGICAL HISTORY OF Right 02/2017 2nd toe amputated d/t hammer toe PAST SURGICAL HISTORY OF Left 12/14/2018 Bunionectomy an 2nd toe amputation PRIM PRQ TRLUML MCHNL THRMBC N-COR N-ICRA 1ST 05/01/2007 REDUCTION OF LARGE BREAST 09/02/2014 SLCTV CATHJ 1ST 2ND ORD THRC/BR[facility] 09/07/2006 RIGHT SLCTV CATHJ 1ST 2ND ORD THRC/BRCH/CP[facility]LC [facility] 09/07/2006 LEFT STEREOTACTIC CORE BIOPSY 09/20/2007 LEFT STEREOTACTIC CORE BIOPSY LEFT BREAST TEAEC W/PATCH GRF CAROTID VERTB SUBCLAV NECK INC 09/07/2006 L CEA TEAEC W/PATCH GRF CAROTID VERTB SUBCLAV NECK INC Endarterectomy, carotid, left TEMPORAL ARTERY BIOSPY 2010 negative TONSILLECTOMY PRIMARY/SECONDARY <AGE 12 Tonsillectomy TRANSCATH STENT INIT VESSEL,PERCUT 05/01/2007 TUBAL LIGATION, Family History FAMILY HISTORY Problem Relation Age of Onset Coronary Artery Disease Mother Hypertension Mother Coronary Artery Disease Father Cancer Father lung ca. Hypertension Sister Patient Allergies ALLERGIES Allergen Reactions Demerol [Meperidine* Swelling tongue swelled Lisinopril GI Upset Ceclor [Cefaclor] Other: See Comments heart palpitations Doxycycline GI Upset Grass Pollen Itching Lipitor [Atorvastat* Intolerance, GI Upset Nauseated. Like I had the flu all the time Poison Adelaide Child Current Medications Current Outpatient Medications on File Prior to Visit Medication Sig potassium chloride ER (K-DUR, KLOR-CON) 20 mEq tablet Take 1 tablet by mouth twice daily. lansoprazole (PREVACID) 30 mg capsule Take 1 capsule by mouth once daily. DULoxetine (CYMBALTA) 30 mg capsule Take 1 capsule by mouth once daily. In the AM DULoxetine (CYMBALTA) 60 mg capsule Take 1 capsule by mouth once daily. In the evening dilTIAZem CR (TIAZAC, TAZTIA XT) 180 mg 24 hr capsule Take 1 capsule by mouth once daily. Blood Pressure Test Kit-Large (QUICK RESPONSE BP MONITOR) 1 Each once daily. celecoxib (CELEBREX) 200 mg capsule Take 1 capsule by mouth twice daily. hydroCHLOROthiazide (HYDRODIURIL, ESIDRIX) 25 mg tablet Take 1 tablet by mouth once daily. rosuvastatin (CRESTOR) 40 mg tablet Take 1 tablet by mouth every evening. pramipexole (MIRAPEX) 0.5 mg tablet Take 1 tablet by mouth twice daily. cyclobenzaprine (FLEXERIL) 5 mg tablet Take 1 tablet by mouth three times daily as needed for muscle spasm. alendronate (FOSAMAX) 70 mg tablet Take 1 tablet by mouth one time a week. Take with a full glass of water, on an empty stomach; do NOT lie down for 30minutes. albuterol (PROVENTIL) 2.5 mg /3 mL (0.083 %) nebulizer solution Use 3 mL via nebulizer every 4 hours as needed for wheezing/shortness of breath. Use over 5-15minutes. albuterol HFA (PROAIR HFA) 90 mcg/actuation inhaler Inhale 2 Puffs as instructed every 4 hours as needed for wheezing/shortness of breath. aspirin, enteric coated (ASPIRIN, ENTERIC COATED) 81 mg EC tablet Take 1 tablet by mouth once daily. No current facility-administered medications on file prior to visit. Social History Social History Tobacco Use Smoking status: Former Packs/day: 1.00 Years: 43.00 Pack years: 43.00 Types: Cigarettes Start date: 1963 Quit date: 08/14/2006 Years since quittin.2 Smokeless tobacco: Never Tobacco comments: Parents smoked in childhood home. Spouse ex-smoker, did smoke early in marriage. Vaping Use Vaping Use: Never used Substance Use Topics Alcohol use: Yes Comment: rarely Drug use: No Review of Symptoms REVIEW OF SYSTEMS SEE HPI EXAM: BP 140/78 Pulse 97 Temp (!) 38.3 C (101 F) Resp 16 Wt 74.8 kg (165 lb) SpO2 96% BMI 38.35 kg/m General Appearance: Well appearing, alert, in no acute distress, well-hydrated, well nourished.. Lungs: Lungs clear to auscultation. No wheezing, rhonchi, rales.. Heart: RRR without murmur, gallop, or rubs. No ectopy. Abdomen: Normal abdominal exam, Abdomen soft, non-tender. Bowel sounds normal. No masses, organomegaly. Health Maintenance List DTAP,TDAP,TD(1 - Tdap) due on 12/29/2004 BP CONTROLLED (<130/80) due on 02/23/2023 ANNUAL PCP TEAM CHRONIC DISEASE VISIT due on 10/03/2023 DIABETES SCREEN due on 08/25/2025 BONE DENSITY Completed INFLUENZA Completed ADVANCE DIRECTIVE DISCUSSION Completed HEPATITIS C SCREENING Completed SHINGRIX VACCINE Completed COVID-19 VACCINE Completed PNEUMOCOCCAL: 65+ Completed ASSESSMENT/PLAN: 1. Acute gastritis without hemorrhage, unspecified gastritis type - ICD9: 535.00, ICD10: K29.00 -Continue use of tylenol for fever management -Continue bland diet and progress as tolerated -Drink plenty of fluids Radha Jett APRN.THELMA documented in this encounter [facility] 10-27-2022 Miscellaneous Notes Reason for call: Ms Hurst called and she would like to schedule an appointment with DR Saha f/u Home and cell number [phone] Diagnosis Atherosclerosis of [place] artery of both lower extremities with intermittent claudication Kind Regards Tamica documented in this encounter [facility] 10-26-2022 Miscellaneous Notes Documented. Natalie Bonds MA done Please place order for COVID. Natalie Bonds MA documented in this encounter [facility] 10-24-2022 Miscellaneous Notes The following approved medication requests have been transmitted electronically. Requested Prescriptions Signed Prescriptions Disp Refills potassium chloride ER (K-DUR, KLOR-CON) 20 mEq tablet 180 tablet 3 Sig: Take 1 tablet by mouth twice daily. Authorizing Provider: MARCELO ACOSTA lansoprazole (PREVACID) 30 mg capsule 90 capsule 1 Sig: Take 1 capsule by mouth once daily. Authorizing Provider: MARCELO ACOSTA MD Patient has been identified by name and date of : Yes Requested Prescriptions Pending Prescriptions Disp Refills potassium chloride ER (K-DUR, KLOR-CON) 20 mEq tablet 180 tablet 3 Sig: Take 1 tablet by mouth twice daily. lansoprazole (PREVACID) 30 mg capsule 90 capsule 1 Sig: Take 1 capsule by mouth once daily. RX INSTRUCTIONS: Patient aware RX will be sent to pharmacy. No need to notify patient. Natalie Bonds MA Iván; 09/2022 Nov: 02/2023 Last refill: 05/2022 documented in this encounter [facility] 10-24-2022 Miscellaneous Notes Patient should have 1 additional refill. Natalie Bonds MA documented in this encounter [facility] 10-10-2022 Nurse Note Ambulatory Ear Lavage Pre-treatment: Ear Canal/Tympanic membrane assessed by LIP Dr. Galvan Treatment: Right ear Equipment and Irrigation solution and Volume used: Single use syringe with single use irrigation tip Return flow appearance: Debris Patient tolerated procedure: yes Post-treatment: Post Irrigation Post-treatment: Ear Canal/Tympanic membrane assessed by LIP Dr. Galvan documented in this encounter [facility] 10-10-2022 History of Presen t illness Narrative Patient presents with: Ear Problem: right ear worse-pressure x 10 days HPI: Feeling ears (R>L) are clogged for 10 days. Positive symptoms: dry Cough, Earache, Rhinorrhea, decreased hearing, Sinus pressure, Negative symptoms: Shortness of breath, Sore throat, Fever, OTC: OTC drops for ear pain. MEDICATIONS: Current Outpatient Medications Medication Sig DULoxetine (CYMBALTA) 30 mg capsule Take 1 capsule by mouth once daily. In the AM DULoxetine (CYMBALTA) 60 mg capsule Take 1 capsule by mouth once daily. In the evening dilTIAZem CR (TIAZAC, TAZTIA XT) 180 mg 24 hr capsule Take 1 capsule by mouth once daily. Blood Pressure Test Kit-Large (QUICK RESPONSE BP MONITOR) 1 Each once daily. celecoxib (CELEBREX) 200 mg capsule Take 1 capsule by mouth twice daily. hydroCHLOROthiazide (HYDRODIURIL, ESIDRIX) 25 mg tablet Take 1 tablet by mouth once daily. rosuvastatin (CRESTOR) 40 mg tablet Take 1 tablet by mouth every evening. pramipexole (MIRAPEX) 0.5 mg tablet Take 1 tablet by mouth twice daily. lansoprazole (PREVACID) 30 mg capsule Take 1 capsule by mouth once daily. potassium chloride ER (K-DUR, KLOR-CON) 20 mEq tablet Take 1 tablet by mouth twice daily. cyclobenzaprine (FLEXERIL) 5 mg tablet Take 1 tablet by mouth three times daily as needed for muscle spasm. alendronate (FOSAMAX) 70 mg tablet Take 1 tablet by mouth one time a week. Take with a full glass of water, on an empty stomach; do NOT lie down for 30minutes. albuterol (PROVENTIL) 2.5 mg /3 mL (0.083 %) nebulizer solution Use 3 mL via nebulizer every 4 hours as needed for wheezing/shortness of breath. Use over 5-15minutes. albuterol HFA (PROAIR HFA) 90 mcg/actuation inhaler Inhale 2 Puffs as instructed every 4 hours as needed for wheezing/shortness of breath. aspirin, enteric coated (ASPIRIN, ENTERIC COATED) 81 mg EC tablet Take 1 tablet by mouth once daily. No current facility-administered medications for this visit. ALLERGIES: ALLERGIES Allergen Reactions Demerol [Meperidine* Swelling tongue swelled Lisinopril GI Upset Ceclor [Cefaclor] Other: See Comments heart palpitations Doxycycline GI Upset Grass Pollen Itching Lipitor [Atorvastat* Intolerance, GI Upset Nauseated. Like I had the flu all the time Poison Adelaide Hives VITALS: BP 144/80 Pulse 88 Temp 36.7 C (98.1 F) Resp 16 Wt 74.8 kg (165 lb) SpO2 96% BMI 38.35 kg/m PHYSICAL EXAM: GEN: Pleasant, in no acute distress. HEENT: PERRL, EOMI, conjunctiva clear Ears: left canal clear. Left otosclerosis but TM without erythema, bulge, or effusion Right canal with moist proximal debris. RTM with erythema and purulent effusion after ear lavage Sinuses: non-tender frontal sinus, tender maxillary sinuses Throat: moist mucous membranes, no erythema, no exudate Neck: supple, no thyromegaly, no lymphadenopathy HEART: regular rate and rhythm, no murmurs LUNGS: clear to auscultation, no wheezes or crackles, no increased WOB ASSESSMENT/PLAN: 1. Acute otitis media, right - ICD9: 382.9, ICD10: H66.91 (primary diagnosis) - AMOXICILLIN 875 MG-POTASSIUM CLAVULANATE 125 MG TABLET 2. Impacted cerumen of right ear - ICD9: 380.4, ICD10: H61.21 Successful staff removal by water lavage. - AMBULATORY EAR LAVAGE/IRRIGATION Orlando Galvan MD documented in this encounter [facility] 10-03-2022 History of Presen t illness Narrative Chief Complaint Patient presents with: Recheck HPI Joyce Hurst is a 77 year old female who presents here today for BP recheck. Patient with hx as below. Has had a couple elevated blood pressures recently. Was started on lisinopril but did not tolerate the medication and so it was stopped. Home readings range from 115-150/70-90. Last 3 Encounter BP Readings: Date: BP: 10/03/2022 130/68 09/08/2022 154/64 08/25/2022 154/69[True BP average[ Past medical history, appointments, medications, allergies reviewed. 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-sided sciatica 06/18/2018 COVID-19 virus infection 07/21/202106/2021 Degeneration of lumbar or lumbosacral intervertebral disc 04/01/2020 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 oxygen therapy 02/23/2022 See Pulmonary Depression 02/25/2016 Elevated hemoglobin A1c 12/30/2020 Essential hypertension with goal blood pressure less than 140/90 02/25/2016 Ex-smoker 07/07/2006 Started at 18 up to 1 PPD a day quit 2005 Gastroesophageal reflux disease without esophagitis 07/03/2015 Generalized osteoarthrosis, involving multiple sites History of 2019 novel coronavirus disease (COVID-19) 07/22/2020 Positive test 07/21/2020 History of polymyalgia rheumatica 03/21/2011 Kidney stones 10/07/2013 Lumbosacral radiculopathy 04/01/2020 Mixed hyperlipidemia 09/30/2015 Neuropathy 12/17/2020 Lower extremities, NCS/EMG from 12/09/2020 Obesity 03/17/2014 Osteoarthritis of spine with radiculopathy, lumbosacral region 04/01/2020 Osteoarthritis, hand 11/02/2012 Osteopenia 09/14/2010 Personal history of colonic polyps Colon polyps Polycythemia, secondary 03/14/2012 PVD (peripheral vascular disease) (HCC) 10/17/2016 Restless legs 03/01/2013 Right shoulder pain 06/29/2018 Unspecified deformity of ankle and foot, acquired 09/10/2009 Previous Surgical History PAST SURGICAL HISTORY Procedure Laterality Date APPENDECTOMY age 9 ARTHRP ACETBLR/PROX FEM PROSTC AGRFT/ALGRFT Right 08/17/2020 Dr. Steve Delarosa ARTHRP KNE CONDYLE&PLATU MEDIAL&LAT COMPARTMENTS 03/2013 Knee replacement, total, left ARTL CATHJ/CANNULJ MNTR/TRANSFUSION SPX PRQ 09/07/2006 BALLN ANGIOPLASTY PERC,ILIAC 05/01/2007 ILIAC COLONOSCOPY FLX DX W/COLLJ SPEC WHEN PFRMD 2001 Colonoscopy COLONOSCOPY FLX DX W/COLLJ SPEC WHEN PFRMD 2006 Colonoscopy COLONOSCOPY FLX DX W/COLLJ SPEC WHEN PFRMD 05/13/2011 repeat in 10 yrs. COLONOSCOPY SCREENING 09/21/2021 Dr. Campoverde EGD TRANSORAL BIOPSY SINGLE/MULTIPLE 08/12/2011 ESOPHAGOGASTRODUODENOSCOPY TRANSORAL DIAGNOSTIC 2001 EGD FECAL OCCULT BLOOD TEST 10/11/2017 negative INTRO OF NEEDLE OR INTRACATHETER UPR/LXTR ARTERY 05/02/2007 RIGHT CRYSTAL FINISHER INTRO OF NEEDLE OR INTRACATHETER UPR/LXTR ARTERY 05/02/2007 LEFT CRYSTAL FINISHER INTRO OF NEEDLE OR INTRACATHETER UPR/LXTR ARTERY Right 12/15/2016 [facility] INTRODUCTION CATHETER AORTA 05/01/2007 INTRODUCTION CATHETER AORTA 05/02/2007 LIG/TRNSXJ FLP TUBE ABDL/VAG APPR UNI/BI Tubal ligation PAST SURGICAL HISTORY OF 07/19/2002 aorto- to left external iliac and to right common femoral artery PAST SURGICAL HISTORY OF 04/2007 Thrombolysis to L Limb of graft, followed by angioplasty and stenting PAST SURGICAL HISTORY OF Right 02/2017 2nd toe amputated d/t hammer toe PAST SURGICAL HISTORY OF Left 12/14/2018 Bunionectomy an 2nd toe amputation PRIM PRQ TRLUML MCHNL THRMBC N-COR N-ICRA 1ST 05/01/2007 REDUCTION OF LARGE BREAST 09/02/2014 SLCTV CATHJ 1ST 2ND ORD THRC/BRCH/[facility]HLC [facility] 09/07/2006 RIGHT SLCTV CATHJ 1ST 2ND ORD THRC/BRCH/[facility]LC [facility] 09/07/2006 LEFT STEREOTACTIC CORE BIOPSY 09/20/2007 LEFT STEREOTACTIC CORE BIOPSY LEFT BREAST TEAEC W/PATCH GRF CAROTID VERTB SUBCLAV NECK INC 09/07/2006 L CEA TEAEC W/PATCH GRF CAROTID VERTB SUBCLAV NECK INC Endarterectomy, carotid, left TEMPORAL ARTERY BIOSPY 2011 negative TONSILLECTOMY PRIMARY/SECONDARY <AGE 12 Tonsillectomy TRANSCATH STENT INIT VESSEL,PERCUT 05/01/2007 TUBAL LIGATION, Family History FAMILY HISTORY Problem Relation Age of Onset Coronary Artery Disease Mother Hypertension Mother Coronary Artery Disease Father Cancer Father lung ca. Hypertension Sister Patient Allergies ALLERGIES Allergen Reactions Demerol [Meperidine* Swelling tongue swelled Lisinopril GI Upset Ceclor [Cefaclor] Other: See Comments heart palpitations Doxycycline GI Upset Grass Pollen Itching Lipitor [Atorvastat* Intolerance, GI Upset Nauseated. Like I had the flu all the time Poison Adelaide Hives Current Medications Current Outpatient Medications on File Prior to Visit Medication Sig DULoxetine (CYMBALTA) 60 mg capsule Take 1 capsule by mouth once daily. In the evening dilTIAZem CR (TIAZAC, TAZTIA XT) 180 mg 24 hr capsule Take 1 capsule by mouth once daily. Blood Pressure Test Kit-Large (QUICK RESPONSE BP MONITOR) 1 Each once daily. celecoxib (CELEBREX) 200 mg capsule Take 1 capsule by mouth twice daily. hydroCHLOROthiazide (HYDRODIURIL, ESIDRIX) 25 mg tablet Take 1 tablet by mouth once daily. rosuvastatin (CRESTOR) 40 mg tablet Take 1 tablet by mouth every evening. pramipexole (MIRAPEX) 0.5 mg tablet Take 1 tablet by mouth twice daily. lansoprazole (PREVACID) 30 mg capsule Take 1 capsule by mouth once daily. potassium chloride ER (K-DUR, KLOR-CON) 20 mEq tablet Take 1 tablet by mouth twice daily. cyclobenzaprine (FLEXERIL) 5 mg tablet Take 1 tablet by mouth three times daily as needed for muscle spasm. DULoxetine (CYMBALTA) 30 mg capsule Take 1 capsule by mouth once daily. In the AM alendronate (FOSAMAX) 70 mg tablet Take 1 tablet by mouth one time a week. Take with a full glass of water, on an empty stomach; do NOT lie down for 30minutes. albuterol (PROVENTIL) 2.5 mg /3 mL (0.083 %) nebulizer solution Use 3 mL via nebulizer every 4 hours as needed for wheezing/shortness of breath. Use over 5-15minutes. albuterol HFA (PROAIR HFA) 90 mcg/actuation inhaler Inhale 2 Puffs as instructed every 4 hours as needed for wheezing/shortness of breath. aspirin, enteric coated (ASPIRIN, ENTERIC COATED) 81 mg EC tablet Take 1 tablet by mouth once daily. lisinopril (ZESTRIL, PRINIVIL) 5 mg tablet Take 1 tablet by mouth once daily. No current facility-administered medications on file prior to visit. Social History Social History Tobacco Use Smoking status: Former Packs/day: 1.00 Years: 43.00 Pack years: 43.00 Types: Cigarettes Start date: 1963 Quit date: 08/14/2006 Years since quittin.1 Smokeless tobacco: Never Tobacco comments: Parents smoked in childhood home. Spouse ex-smoker, did smoke early in marriage. Vaping Use Vaping Use: Never used Substance Use Topics Alcohol use: Yes Comment: rarely Drug use: No Review of Symptoms REVIEW OF SYSTEMS GENERAL: No weight loss, malaise or fevers All other negative or noncontributory EXAM: BP 130/68 (BP Site: Right Arm, BP Position: Sitting, BP Cuff Size: Large Adult) Pulse 72 Temp 36.4 C (97.6 F) Resp 18 Wt 74.8 kg (165 lb) BMI 38.35 kg/m General Appearance: Well appearing, alert, in no acute distress, well-hydrated, well nourished.. Health Maintenance List DTAP,TDAP,TD(1 - Tdap) due on 12/29/2004 BP CONTROLLED (<130/80) due on 02/23/2023 ANNUAL PCP TEAM CHRONIC DISEASE VISIT due on 09/08/2023 DIABETES SCREEN due on 08/25/2025 BONE DENSITY Completed INFLUENZA Completed ADVANCE DIRECTIVE DISCUSSION Completed HEPATITIS C SCREENING Completed SHINGRIX VACCINE Completed COVID-19 VACCINE Completed PNEUMOCOCCAL: 65+ Completed Data reviewed ASSESSMENT/PLAN: 1. Essential hypertension with goal blood pressure less than 140/90 - ICD9: 401.9, ICD10: I10 - fair control - Continue current medication(s) - Recommended regular aerobic exercise. - Recommend home blood pressure monitoring, to bring results in on next visit - today's BP was wnl and majority of home readings have been in acceptable range. We did discuss low dose losartan to see if we can keep BP more consistent but patient elects to work on her diet, focusing on decreasing salt as she tends to add salt to her meals. She will continue to monitor at home and let us know if trending up. Otherwise follow up as scheduled. - Goal of BP <140/90 Brianna Patel PA-C documented in this encounter [facility] 09-23-2022 Miscellaneous Notes The following approved medication requests have been transmitted electronically. Requested Prescriptions Signed Prescriptions Disp Refills DULoxetine (CYMBALTA) 60 mg capsule 90 capsule 1 Sig: Take 1 capsule by mouth once daily. In the evening Authorizing Provider: MARCELO ACOSTA dilTIAZem CR (TIAZAC, TAZTIA XT) 180 mg 24 hr capsule 90 capsule 1 Sig: Take 1 capsule by mouth once daily. Authorizing Provider: MARCELO ACOSTA MD Patient has been identified by name and date of : Yes Requested Prescriptions Pending Prescriptions Disp Refills DULoxetine (CYMBALTA) 60 mg capsule 90 capsule 1 Sig: Take 1 capsule by mouth once daily. In the evening dilTIAZem CR (TIAZAC, TAZTIA XT) 180 mg 24 hr capsule 90 capsule 1 Sig: Take 1 capsule by mouth once daily. RX INSTRUCTIONS: Patient aware RX will be sent to pharmacy. No need to notify patient. Natalie Bonds MA Iván: 08/2022 Nov: 09/2022 & 02/2023 Last refill: 03/2022 documented in this encounter [facility] 09-08-2022 History of Presen t illness Narrative Chief Complaint Patient presents with: Blood Pressure: 2wk follow up BP check HPI Joyce Hurst is a 77 year old female who presents here today for Above Complaints. Joyce is an established patient of Dr. Karla MD. Joyce is a new patient to me today. Concerns today.. HTN -- On HCTZ 25 mg daily. Been on this regimen for years. At recent visit with Dr. Acosta on 08/25, BP was elevated mildly. Here today for 2 week BP check. She states compliant with current blood pressure medication. She does not check BP at home.She agrees to getting BP cuff and to start checking at home. She denies chest pain, shortness of breath, palpitations, dizziness, leg edema, headaches, or vision changes. Last 14 Encounter BP Readings: Date: BP: 09/08/2022 154/64 08/25/2022 154/69[True BP average[ 07/06/2022 146/76 05/23/2022 122/74 04/18/2022 128/64 04/09/2022 142/66 03/31/2022 152/80 02/23/2022 122/80 12/20/2021 166/79 12/13/2021 150/92 12/09/2021 148/64 10/17/2021 146/80 09/19/2021 162/96 09/13/2021 140/92 No other concerns or complaints. Past medical history, appointments, medications, allergies reviewed. 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-sided sciatica 06/18/2018 COVID-19 virus infection 07/21/202106/2021 Degeneration of lumbar or lumbosacral intervertebral disc 04/01/2020 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 oxygen therapy 02/23/2022 See Pulmonary Depression 02/25/2016 Elevated hemoglobin A1c 12/30/2020 Essential hypertension with goal blood pressure less than 140/90 02/25/2016 Ex-smoker 07/07/2006 Started at 18 up to 1 PPD a day quit 2005 Gastroesophageal reflux disease without esophagitis 07/03/2015 Generalized osteoarthrosis, involving multiple sites History of 2019 novel coronavirus disease (COVID-19) 07/22/2020 Positive test 07/21/2020 History of polymyalgia rheumatica 03/21/2011 Kidney stones 10/07/2013 Lumbosacral radiculopathy 04/01/2020 Mixed hyperlipidemia 09/30/2015 Neuropathy 12/17/2020 Lower extremities, NCS/EMG from 12/09/2020 Obesity 03/17/2014 Osteoarthritis of spine with radiculopathy, lumbosacral region 04/01/2020 Osteoarthritis, hand 11/02/2012 Osteopenia 09/14/2010 Personal history of colonic polyps Colon polyps Polycythemia, secondary 03/14/2012 PVD (peripheral vascular disease) ([facility]) 10/17/2016 Restless legs 03/01/2013 Right shoulder pain 06/29/2018 Unspecified deformity of ankle and foot, acquired 09/10/2009 Previous Surgical History PAST SURGICAL HISTORY Procedure Laterality Date APPENDECTOMY age 9 ARTHRP ACETBLR/PROX FEM PROSTC AGRFT/ALGRFT Right 08/17/2020 Dr. Steve Delarosa ARTHRP KNE CONDYLE&PLATU MEDIAL&LAT COMPARTMENTS 03/2013 Knee replacement, total, left ARTL CATHJ/CANNULJ MNTR/TRANSFUSION SPX PRQ 09/07/2006 BALLN ANGIOPLASTY PERC,ILIAC 05/01/2007 ILIAC COLONOSCOPY FLX DX W/COLLJ SPEC WHEN PFRMD 2001 Colonoscopy COLONOSCOPY FLX DX W/COLLJ SPEC WHEN PFRMD 2006 Colonoscopy COLONOSCOPY FLX DX W/COLLJ SPEC WHEN PFRMD 05/13/2011 repeat in 10 yrs. COLONOSCOPY SCREENING 09/21/2021 Dr. Campoverde EGD TRANSORAL BIOPSY SINGLE/MULTIPLE 08/12/2011 ESOPHAGOGASTRODUODENOSCOPY TRANSORAL DIAGNOSTIC 2001 EGD FECAL OCCULT BLOOD TEST 10/11/2017 negative INTRO OF NEEDLE OR INTRACATHETER UPR/LXTR ARTERY 05/02/2007 RIGHT CRYSTAL FINISHER INTRO OF NEEDLE OR INTRACATHETER UPR/LXTR ARTERY 05/02/2007 LEFT CRYSTAL FINISHER INTRO OF NEEDLE OR INTRACATHETER UPR/LXTR ARTERY Right 12/15/2016 sfa INTRODUCTION CATHETER AORTA 05/01/2007 INTRODUCTION CATHETER AORTA 05/02/2007 LIG/TRNSXJ FLP TUBE ABDL/VAG APPR UNI/BI Tubal ligation PAST SURGICAL HISTORY OF 07/19/2002 aorto- to left external iliac and to right common femoral artery PAST SURGICAL HISTORY OF 04/2007 Thrombolysis to L Limb of graft, followed by angioplasty and stenting PAST SURGICAL HISTORY OF Right 02/2017 2nd toe amputated d/t hammer toe PAST SURGICAL HISTORY OF Left 12/14/2018 Bunionectomy an 2nd toe amputation PRIM PRQ TRLUML MCHNL THRMBC N-COR N-ICRA 1ST 05/01/2007 REDUCTION OF LARGE BREAST 09/02/2014 SLCTV CATHJ 1ST 2ND ORD [facility] 09/07/2006 RIGHT SLCTV CATHJ 1ST 2ND ORD [facility] 09/07/2006 LEFT STEREOTACTIC CORE BIOPSY 09/20/2007 LEFT STEREOTACTIC CORE BIOPSY LEFT BREAST TEAEC W/PATCH GRF CAROTID VERTB SUBCLAV NECK INC 09/07/2006 L CEA TEAEC W/PATCH GRF CAROTID VERTB SUBCLAV NECK INC Endarterectomy, carotid, left TEMPORAL ARTERY BIOSPY 2010 negative TONSILLECTOMY PRIMARY/SECONDARY <AGE 12 Tonsillectomy TRANSCATH STENT INIT VESSEL,PERCUT 05/01/2007 TUBAL LIGATION, Family History FAMILY HISTORY Problem Relation Age of Onset Coronary Artery Disease Mother Hypertension Mother Coronary Artery Disease Father Cancer Father lung ca. Hypertension Sister Patient Allergies ALLERGIES Allergen Reactions Demerol [Meperidine* Swelling tongue swelled Ceclor [Cefaclor] Other: See Comments heart palpitations Doxycycline GI Upset Grass Pollen Itching Lipitor [Atorvastat* Intolerance, GI Upset Nauseated. Like I had the flu all the time Poison Adelaide Hives Current Medications Current Outpatient Medications on File Prior to Visit Medication Sig celecoxib (CELEBREX) 200 mg capsule Take 1 capsule by mouth twice daily. hydroCHLOROthiazide (HYDRODIURIL, ESIDRIX) 25 mg tablet Take 1 tablet by mouth once daily. rosuvastatin (CRESTOR) 40 mg tablet Take 1 tablet by mouth every evening. pramipexole (MIRAPEX) 0.5 mg tablet Take 1 tablet by mouth twice daily. lansoprazole (PREVACID) 30 mg capsule Take 1 capsule by mouth once daily. dilTIAZem CR (TIAZAC, TAZTIA XT) 180 mg 24 hr capsule Take 1 capsule by mouth once daily. potassium chloride ER (K-DUR, KLOR-CON) 20 mEq tablet Take 1 tablet by mouth twice daily. cyclobenzaprine (FLEXERIL) 5 mg tablet Take 1 tablet by mouth three times daily as needed for muscle spasm. DULoxetine (CYMBALTA) 60 mg capsule Take 1 capsule by mouth once daily. In the evening DULoxetine (CYMBALTA) 30 mg capsule Take 1 capsule by mouth once daily. In the AM alendronate (FOSAMAX) 70 mg tablet Take 1 tablet by mouth one time a week. Take with a full glass of water, on an empty stomach; do NOT lie down for 30minutes. albuterol (PROVENTIL) 2.5 mg /3 mL (0.083 %) nebulizer solution Use 3 mL via nebulizer every 4 hours as needed for wheezing/shortness of breath. Use over 5-15minutes. albuterol HFA (PROAIR HFA) 90 mcg/actuation inhaler Inhale 2 Puffs as instructed every 4 hours as needed for wheezing/shortness of breath. aspirin, enteric coated (ASPIRIN, ENTERIC COATED) 81 mg EC tablet Take 1 tablet by mouth once daily. No current facility-administered medications on file prior to visit. Social History Social History Tobacco Use Smoking status: Former Packs/day: 1.00 Years: 43.00 Pack years: 43.00 Types: Cigarettes Start date: 1963 Quit date: 08/14/2006 Years since quittin.0 Smokeless tobacco: Never Tobacco comments: Parents smoked in childhood home. Spouse ex-smoker, did smoke early in marriage. Vaping Use Vaping Use: Never used Substance Use Topics Alcohol use: Yes Comment: rarely Drug use: No REVIEW OF SYSTEMS: as above Reviewed relevant PMHx, PSHx, Social Hx, current medications and allergies. Review of Symptoms REVIEW OF SYSTEMS See HPI. All other systems are negative. EXAM: BP 154/64 Pulse 79 Ht 139.7 cm (4' 7 ) Wt 76.2 kg (168 lb) SpO2 96% BMI 39.05 kg/m General Appearance: Well appearing, alert, in no acute distress, well-hydrated, well nourished.. Skin: Skin color, texture, turgor normal, no suspicious rashes or lesions. Head: Normocephalic, no masses, lesions, tenderness or abnormalities. Lungs: Lungs clear to auscultation. No wheezing, rhonchi, rales.. Heart: RRR without murmur, gallop, or rubs. No ectopy. Health Maintenance List DTAP,TDAP,TD(1 - Tdap) due on 09/21/2022 BP CONTROLLED (<130/80) due on 02/23/2023 ANNUAL PCP TEAM CHRONIC DISEASE VISIT due on 08/25/2023 DIABETES SCREEN due on 08/25/2025 BONE DENSITY Completed INFLUENZA Completed ADVANCE DIRECTIVE DISCUSSION Completed HEPATITIS C SCREENING Completed SHINGRIX VACCINE Completed COVID-19 VACCINE Completed PNEUMOCOCCAL: 65+ Completed ASSESSMENT/PLAN: 1. Essential hypertension with goal blood pressure less than 140/90 - ICD9: 401.9, ICD10: I10 - suboptimal control - Continue current medication(s) - Add lisinopril (Zestril/Prinivil) 5 mg daily. - Encouraged dietary sodium restriction/DASH diet - Recommended regular aerobic exercise. - Recommend home blood pressure monitoring, to bring results in on next visit. Gave prescription for BP cuff. - Recheck in 2-4 weeks, sooner should new symptoms or problems arise. - Goal of BP <140/90 - Recommend home or pharmacy blood pressure monitoring - Recommended no refined sugar, low refined starch, healthy oil intake (olive oil), healthy protein (fish) along the lines of the Mediterranean diet. - BLOOD PRESSURE TEST KIT-LARGE CUFF - LISINOPRIL 5 MG TABLET RTO in 2-4 weeks, sooner if needed. Prescription instructions reviewed with patient as applicable. Potential red flag symptoms discussed with the patient. Reviewed appropriate action plan to take if red flag symptoms occur. Patient agreeable to treatment plan. Radha Marcelo APRN.CNP [address] [place] [address] documented in this encounter [facility] 09-02-2022 Miscellaneous Notes September 02, 2022 PID: [id number] Joyce Hurst [id number] [place] [address] Dear Ms. Hurst, We are pleased to inform you that the results of your recent breast imaging exam on 09/02/2022 are normal. Early detection of cancer is very important. We also understand recommendations regarding breast cancer screening are controversial. Please discuss with your primary care provider which strategy is best for you and whether a mammogram is right for you. Your imaging studies and report will be kept on file at [facility] as part of your permanent medical record and are available for your continuing care. Thank you for allowing us to help in meeting your health care needs. Sincerely, Dr. Stokes Interpreting Radiologist [facility] (Normal over 40) documented in this encounter [facility] 08-25-2022 Miscellaneous Notes Patient has been identified by name and date of : Yes Requested Prescriptions Pending Prescriptions Disp Refills celecoxib (CELEBREX) 200 mg capsule 180 capsule 1 Sig: Take 1 capsule by mouth twice daily. RX INSTRUCTIONS: Patient aware RX will be sent to pharmacy. No need to notify patient. Natalie Bonds MA Iván: 08/25/2022 Last refill; 05/2022 documented in this encounter [facility] 07-25-2022 Miscellaneous Notes The following approved medication requests have been transmitted electronically. Requested Prescriptions Signed Prescriptions Disp Refills lansoprazole (PREVACID) 30 mg capsule 90 capsule 1 Sig: Take 1 capsule by mouth once daily. Authorizing Provider: MARCELO ACOSTA MD Patient has been identified by name and date of : Yes Requested Prescriptions Pending Prescriptions Disp Refills lansoprazole (PREVACID) 30 mg capsule 90 capsule 1 Sig: Take 1 capsule by mouth once daily. RX INSTRUCTIONS: Patient aware RX will be sent to pharmacy. No need to notify patient. Natalie Bonds MA Iván: 02/2022 Nov: 08/2022 Last refill: 04/2022. She should have started her last refill. documented in this encounter [facility] 07-06-2022 Miscellaneous Notes Opened in error. Natalie Bonds MA documented in this encounter [facility] 07-01-2022 Miscellaneous Notes Call placed to patient to let know that medication is not routine as she previously requested to have on hand. Detailed message left on secure line that if patient is having trouble with ear pain to contact office and ask to speak to a triage nurse. Charla Torre RN This is not a routine prescription. Brianna Patel PA-C Patient has been identified by name and date of : Yes Patient phones for refill(s): Requested Prescriptions Pending Prescriptions Disp Refills switailr-oogfoajns-igjozssqnhurx e (CORTISPORIN) 3.5-10,000-1 mg/mL-unit/mL-% otic suspension 10 mL 0 Sig: Use 3 Drops in the right ear four times daily for 7 days. Date of last office visit with pcp: 04/18/2022 Future appt: 08/25/2022 Last 2 Encounter Wt Readings: Date: Wt: 05/23/2022 76.7 kg (169 lb) 04/18/2022 76.4 kg (168 lb 6.4 oz) Previous labs/tests for medication: Blood Pressure: BUN (mg/dL) Date Value 02/21/2022 26 07/29/2021 16 Sodium (mmol/L) Date Value 03/24/2022 142 08/04/2021 143 Last 1 Encounter BP Readings: Date: BP: 05/23/2022 122/74 Liver Function: ALT (U/L) Date Value 02/21/2022 14 07/29/2021 28 AST (U/L) Date Value 02/21/2022 23 07/29/2021 32 Please advise. Thank you. Charla Torre RN documented in this encounter [facility] 06-22-2022 Miscellaneous Notes The following approved medication requests have been transmitted electronically. Requested Prescriptions Signed Prescriptions Disp Refills dilTIAZem CR (TIAZAC, TAZTIA XT) 180 mg 24 hr capsule 90 capsule 1 Sig: Take 1 capsule by mouth once daily. Authorizing Provider: MARCELO ACOSTA MD Last office visit: 04/18/22 F/u scheduled: 08/25/22 Magy Morton Ma documented in this encounter [facility] 06-02-2022 Miscellaneous Notes rx request is being addressed in another refill request. Mikayla Pruett LPN documented in this encounter [facility] 06-02-2022 Miscellaneous Notes IVÁN 04/18/22 NOV 08/25/22 Mikayla Pruett LPN documented in this encounter [facility] 05-29-2022 Miscellaneous Notes Left detailed message on a secured voicemail. Lili Siu ----- Message from Ryanne Tobar APRN.COMPUTED TOMOGRAPHY TECHNOLOGIST sent at 05/29/2022 8:19 AM EDT ----- Please advise patient the fungal screen was negative after 5 days. documented in this encounter [facility] 05-23-2022 History of Presen t illness Narrative This note was created using Codexister. Subjective Joyce Hurst is a 77 year old female. HPI Patient presents with right ear pain over the past 3 or 4 days. She states she gets swimmer's ear frequently and had used Cortisporin drops the past couple days but does not seem to be improving. She also put some biqb-nqy-fxxcvpa drops in there. She denies any congestion or cough. No fever. No drainage out of the ear. Denies history of earwax issues. She feels like her hearing might be a little bit muffled. No recent swimming. Review of Systems Constitutional: Negative. HENT: Positive for ear pain. Negative for ear discharge, postnasal drip and sinus pain. Respiratory: Negative for cough, shortness of breath and wheezing. Cardiovascular: Negative. Gastrointestinal: Negative. Genitourinary: Negative. Musculoskeletal: Negative. All other systems reviewed and are negative. PAST MEDICAL HISTORY Diagnosis Date Abnormal mammogram, unspecified 2009 LEFT BREAST LESION biopsy neg Arthritis of knee 03/01/2013 Arthritis, lumbar spine 06/04/2018 Atherosclerosis of [place] arteries of extremity with intermittent claudication (HCC) 10/16/2017 Bilateral carotid artery stenosis 12/09/2019 Seeing Vascular: US 12/2019 Rt 20-40%, Lt 60-80% Chronic left-sided low back pain with left-sided sciatica 06/18/2018 COVID-19 virus infection 07/21/202106/2021 Current use of proton pump inhibitor 03/27/2017 Mg check 09/2017 Degeneration of lumbar or lumbosacral intervertebral disc 04/01/2020 Depression 02/25/2016 Elevated hemoglobin A1c 12/30/2020 Essential hypertension with goal blood pressure less than 140/90 02/25/2016 Ex-smoker 07/07/2006 Started at 18 up to 1 PPD a day quit 2005 Gastroesophageal reflux disease without esophagitis 07/03/2015 Generalized osteoarthrosis, involving multiple sites History of 2019 novel coronavirus disease (COVID-19) 07/22/2020 Positive test 07/21/2020 History of polymyalgia rheumatica 03/21/2011 Kidney stones 10/07/2013 Lumbosacral radiculopathy 04/01/2020 Mixed hyperlipidemia 09/30/2015 Neuropathy 12/17/2020 Lower extremities, NCS/EMG from 12/09/2020 Obesity 03/17/2014 Osteoarthritis of spine with radiculopathy, lumbosacral region 04/01/2020 Osteoarthritis, hand 11/02/2012 Osteopenia 09/14/2010 PAD (peripheral artery disease) ([facility]) Personal history of colonic polyps Colon polyps Polycythemia, secondary 03/14/2012 PVD (peripheral vascular disease) ([facility]) 10/17/2016 Restless legs 03/01/2013 Right shoulder pain 06/29/2018 Unspecified deformity of ankle and foot, acquired 09/10/2009 Current Outpatient Medications Medication Sig Dispense Refill celecoxib (CELEBREX) 200 mg capsule Take 1 capsule by mouth twice daily. 180 capsule 1 potassium chloride ER (K-DUR, KLOR-CON) 20 mEq tablet Take 1 tablet by mouth twice daily. 180 tablet 3 lansoprazole (PREVACID) 30 mg capsule Take 1 capsule by mouth once daily. 90 capsule 1 cyclobenzaprine (FLEXERIL) 5 mg tablet Take 1 tablet by mouth three times daily as needed for muscle spasm. 15 tablet 0 dilTIAZem CR (TIAZAC, TAZTIA XT) 180 mg 24 hr capsule Take 1 capsule by mouth once daily. 90 capsule 1 DULoxetine (CYMBALTA) 60 mg capsule Take 1 capsule by mouth once daily. In the evening 90 capsule 1 DULoxetine (CYMBALTA) 30 mg capsule Take 1 capsule by mouth once daily. In the AM hydroCHLOROthiazide (HYDRODIURIL, ESIDRIX) 25 mg tablet Take 1 tablet by mouth once daily. 90 tablet 1 alendronate (FOSAMAX) 70 mg tablet Take 1 tablet by mouth one time a week. Take with a full glass of water, on an empty stomach; do NOT lie down for 30minutes. 12 tablet 3 rosuvastatin (CRESTOR) 40 mg tablet Take 1 tablet by mouth every evening. 90 tablet 1 pramipexole (MIRAPEX) 0.5 mg tablet Take 1 tablet by mouth twice daily. 180 tablet 1 albuterol HFA (PROAIR HFA) 90 mcg/actuation inhaler Inhale 2 Puffs as instructed every 4 hours as needed for wheezing/shortness of breath. 1 Each 1 aspirin, enteric coated (ADULT LOW DOSE ASPIRIN) 81 mg EC tablet Take 1 tablet by mouth once daily. 0 ofloxacin (FLOXIN) 0.3 % otic solution Use 10 Drops in the right ear once daily for 7 days. 4 mL 0 albuterol (PROVENTIL) 2.5 mg /3 mL (0.083 %) nebulizer solution Use 3 mL via nebulizer every 4 hours as needed for wheezing/shortness of breath. Use over 5-15minutes. 100 mL 2 No current facility-administered medications for this visit. PAST SURGICAL HISTORY Procedure Laterality Date APPENDECTOMY age 9 ARTHRP ACETBLR/PROX FEM PROSTC AGRFT/ALGRFT Right 08/17/2020 Dr. Steve Delarosa ARTHRP KNE CONDYLE&PLATU MEDIAL&LAT COMPARTMENTS 03/2013 Knee replacement, total, left ARTL CATHJ/CANNULJ MNTR/TRANSFUSION SPX PRQ 09/07/2006 BALLN ANGIOPLASTY PERC,ILIAC 05/01/2007 ILIAC COLONOSCOPY FLX DX W/COLLJ SPEC WHEN PFRMD 2001 Colonoscopy COLONOSCOPY FLX DX W/COLLJ SPEC WHEN PFRMD 2006 Colonoscopy COLONOSCOPY FLX DX W/COLLJ SPEC WHEN PFRMD 05/13/2011 repeat in 10 yrs. COLONOSCOPY SCREENING 09/21/2021 Dr. Campoverde EGD TRANSORAL BIOPSY SINGLE/MULTIPLE 08/12/2011 ESOPHAGOGASTRODUODENOSCOPY TRANSORAL DIAGNOSTIC 2001 EGD FECAL OCCULT BLOOD TEST 10/11/2017 negative INTRO OF NEEDLE OR INTRACATHETER UPR/LXTR ARTERY 05/02/2007 RIGHT CRYSTAL FINISHER INTRO OF NEEDLE OR INTRACATHETER UPR/LXTR ARTERY 05/02/2007 LEFT CRYSTAL FINISHER INTRO OF NEEDLE OR INTRACATHETER UPR/LXTR ARTERY Right 12/15/2016 [facility]fa INTRODUCTION CATHETER AORTA 05/01/2007 INTRODUCTION CATHETER AORTA 05/02/2007 LIG/TRNSXJ FLP TUBE ABDL/VAG APPR UNI/BI Tubal ligation PAST SURGICAL HISTORY OF 07/19/2002 aorto- to left external iliac and to right common femoral artery PAST SURGICAL HISTORY OF 04/2007 Thrombolysis to L Limb of graft, followed by angioplasty and stenting PAST SURGICAL HISTORY OF Right 02/2017 2nd toe amputated d/t hammer toe PAST SURGICAL HISTORY OF Left 12/14/2018 Bunionectomy an 2nd toe amputation PRIM PRQ TRLUML MCHNL THRMBC N-COR N-ICRA 1ST 05/01/2007 REDUCTION OF LARGE BREAST 09/02/2014 SLCTV CATHJ 1ST 2ND ORD THRC/BRCH/CPHLC BRNCH 09/07/2006 RIGHT SLCTV CATHJ 1ST 2ND ORD THRC/BRCH/CPHLC [facility] 09/07/2006 LEFT STEREOTACTIC CORE BIOPSY 09/20/2007 LEFT STEREOTACTIC CORE BIOPSY LEFT BREAST TEAEC W/PATCH GRF CAROTID VERTB SUBCLAV NECK INC 09/07/2006 L CEA TEAEC W/PATCH GRF CAROTID VERTB SUBCLAV NECK INC Endarterectomy, carotid, left TEMPORAL ARTERY BIOSPY 2010 negative TONSILLECTOMY PRIMARY/SECONDARY <AGE 12 Tonsillectomy TRANSCATH STENT INIT VESSEL,PERCUT 05/01/2007 TUBAL LIGATION, FAMILY HISTORY Problem Relation Age of Onset Coronary Artery Disease Mother Hypertension Mother Coronary Artery Disease Father Cancer Father lung ca. Hypertension Sister Social History Tobacco Use Smoking status: Former Smoker Packs/day: 1.00 Years: 43.00 Pack years: 43.00 Types: Cigarettes Start date: 1963 Quit date: 08/14/2006 Years since quittin.7 Smokeless tobacco: Never Used Tobacco comment: Parents smoked in childhood home. Spouse ex-smoker, did smoke early in marriage. Vaping Use Vaping Use: Never used Substance Use Topics Alcohol use: Yes Comment: rarely Drug use: No Objective BP 122/74 Pulse 100 Temp 37 C (98.6 F) Resp 18 Wt 76.7 kg (169 lb) SpO2 97% BMI 38.02 kg/m Physical Exam Vitals reviewed. Constitutional: Appearance: Normal appearance. HENT: Head: Normocephalic and atraumatic. Ears: Comments: Patient has erythema and some discharge of the external auditory canal on the right. TM intact and normal. Left ear unremarkable. Nose: Nose normal. Mouth/Throat: Lips: [place]. Mouth: Mucous membranes are dry. Cardiovascular: Rate and Rhythm: Normal rate and regular rhythm. Heart sounds: Normal heart sounds. Pulmonary: Effort: Pulmonary effort is normal. Breath sounds: Normal breath sounds. Musculoskeletal: Cervical back: Neck supple. Skin: General: Skin is warm and dry. Neurological: Mental Status: She is alert. Assessment and Plan ASSESSMENT/PLAN: 1. Acute otitis externa of right ear, unspecified type - ICD9: 380.10, ICD10: H60.501 Patient did fail Cortisporin so I did swab at the ear canal. I we will switch her to ofloxacin and discussed if not improving to follow-up with ENT. - WOUND CULTURE AND GRAM STAIN - FUNGAL SCREEN Jodie Shine PA-C documented in this encounter [facility] 05-13-2022 Miscellaneous Notes The following approved medication requests have been transmitted electronically. Signed Prescriptions Disp Refills celecoxib (CELEBREX) 200 mg capsule 180 capsule 1 Sig: Take 1 capsule by mouth twice daily. CHERI: No Authorizing Provider: MARCELO ACOSTA potassium chloride ER (K-DUR, KLOR-CON) 20 mEq tablet 180 tablet 3 Sig: Take 1 tablet by mouth twice daily. CHERI: No Authorizing Provider: MARCELO ACOSTA MD Patient has been identified by name and date of : Yes Pending Prescriptions Disp Refills CELECOXIB 200 MG CAPSULE 180 capsule 1 Sig: Take 1 capsule by mouth twice daily. CHERI: No POTASSIUM CHLORIDE ER 20 MEQ TABLET,EXTENDED RELEASE(PART/CRYST) 180 tablet 3 Sig: Take 1 tablet by mouth twice daily. CHERI: No RX INSTRUCTIONS: Patient aware RX will be sent to pharmacy. No need to notify patient. Natalie Bonds MA Iván: 02/2022 Nov: 08/2022 Last refill: 02/2022 documented in this encounter [facility] 04-27-2022 Miscellaneous Notes Last refill 01/05/22 Qty: 90 with 1 refill Pt had appointment with Dr Perez 04/18/22 NOV 08/25/22 Mikayla Pruett LPN documented in this encounter [facility] 04-18-2022 History of Presen t illness Narrative Chief Complaint Patient presents with: Pain: right arm-completed prednisone but didn't resolve HPI Joyce Hurst is a 77 year old female who presents here today for Above Complaints.. Patient evaluated at on 04/09 for complaint of right Upper arm pain diagnosed as muscle strain/overuse. Treated with steroid taper x 9 days and advised to follow up with PCP if not improving. Today, patient is complaining of continued pain over her right bicep described as intermittent sharp pain. Up to 06/22, with radiation to her shoulder and wrist occasionally. Started after she was gardening. Patient is right handed. Exacerbated with bending her elbow. Finished her steroid taper without any improvement in symptoms. Is also on Celebrex BID. Not treating with OTC analgesics or ice. Has tried heat which does help temporarily. Denies fall/injury, bruising, swelling, erythema. Past medical history, appointments, medications, allergies reviewed. 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-sided sciatica 06/18/2018 COVID-19 virus infection 07/21/202106/2021 Current use of proton pump inhibitor 03/27/2017 Mg check 09/2017 Degeneration of lumbar or lumbosacral intervertebral disc 04/01/2020 Depression 02/25/2016 Elevated hemoglobin A1c 12/30/2020 Essential hypertension with goal blood pressure less than 140/90 02/25/2016 Ex-smoker 07/07/2006 Started at 18 up to 1 PPD a day quit 2005 Gastroesophageal reflux disease without esophagitis 07/03/2015 Generalized osteoarthrosis, involving multiple sites History of 2019 novel coronavirus disease (COVID-19) 07/22/2020 Positive test 07/21/2020 History of polymyalgia rheumatica 03/21/2011 Kidney stones 10/07/2013 Lumbosacral radiculopathy 04/01/2020 Mixed hyperlipidemia 09/30/2015 Neuropathy 12/17/2020 Lower extremities, NCS/EMG from 12/09/2020 Obesity 03/17/2014 Osteoarthritis of spine with radiculopathy, lumbosacral region 04/01/2020 Osteoarthritis, hand 11/02/2012 Osteopenia 09/14/2010 PAD (peripheral artery disease) ([facility]) Personal history of colonic polyps Colon polyps Polycythemia, secondary 03/14/2012 PVD (peripheral vascular disease) ([facility]) 10/17/2016 Restless legs 03/01/2013 Right shoulder pain 06/29/2018 Unspecified deformity of ankle and foot, acquired 09/10/2009 Previous Surgical History PAST SURGICAL HISTORY Procedure Laterality Date APPENDECTOMY age 9 ARTHRP ACETBLR/PROX FEM PROSTC AGRFT/ALGRFT Right 08/17/2020 Dr. Steve Delarosa ARTHRP KNE CONDYLE&PLATU MEDIAL&LAT COMPARTMENTS 03/2013 Knee replacement, total, left ARTL CATHJ/CANNULJ MNTR/TRANSFUSION SPX PRQ 09/07/2006 BALLN ANGIOPLASTY PERC,ILIAC 05/01/2007 ILIAC COLONOSCOPY FLX DX W/COLLJ SPEC WHEN PFRMD 2001 Colonoscopy COLONOSCOPY FLX DX W/COLLJ SPEC WHEN PFRMD 2006 Colonoscopy COLONOSCOPY FLX DX W/COLLJ SPEC WHEN PFRMD 05/13/2011 repeat in 10 yrs. COLONOSCOPY SCREENING 09/21/2021 Dr. Campoverde EGD TRANSORAL BIOPSY SINGLE/MULTIPLE 08/12/2011 ESOPHAGOGASTRODUODENOSCOPY TRANSORAL DIAGNOSTIC 2001 EGD FECAL OCCULT BLOOD TEST 10/11/2017 negative INTRO OF NEEDLE OR INTRACATHETER UPR/LXTR ARTERY 05/02/2007 RIGHT CRYSTAL FINISHER INTRO OF NEEDLE OR INTRACATHETER UPR/LXTR ARTERY 05/02/2007 LEFT CRYSTAL FINISHER INTRO OF NEEDLE OR INTRACATHETER UPR/LXTR ARTERY Right 12/15/2016 [facility] INTRODUCTION CATHETER AORTA 05/01/2007 INTRODUCTION CATHETER AORTA 05/02/2007 LIG/TRNSXJ FLP TUBE ABDL/VAG APPR UNI/BI Tubal ligation PAST SURGICAL HISTORY OF 07/19/2002 aorto- to left external iliac and to right common femoral artery PAST SURGICAL HISTORY OF 04/2007 Thrombolysis to L Limb of graft, followed by angioplasty and stenting PAST SURGICAL HISTORY OF Right 02/2017 2nd toe amputated d/t hammer toe PAST SURGICAL HISTORY OF Left 12/14/2018 Bunionectomy an 2nd toe amputation PRIM PRQ TRLUML MCHNL THRMBC N-COR N-ICRA 1ST 05/01/2007 REDUCTION OF LARGE BREAST 09/02/2014 SLCTV CATHJ 1ST 2ND ORD THRC/BRCH/CPHLC BRNCH 09/07/2006 RIGHT SLCTV CATHJ 1ST 2ND ORD THRC/BRCH/CPHLC BRNCH 09/07/2006 LEFT STEREOTACTIC CORE BIOPSY 09/20/2007 LEFT STEREOTACTIC CORE BIOPSY LEFT BREAST TEAEC W/PATCH GRF CAROTID VERTB SUBCLAV NECK INC 09/07/2006 L CEA TEAEC W/PATCH GRF CAROTID VERTB SUBCLAV NECK INC Endarterectomy, carotid, left TEMPORAL ARTERY BIOSPY 2010 negative TONSILLECTOMY PRIMARY/SECONDARY <AGE 12 Tonsillectomy TRANSCATH STENT INIT VESSEL,PERCUT 05/01/2007 TUBAL LIGATION, Family History FAMILY HISTORY Problem Relation Age of Onset Coronary Artery Disease Mother Hypertension Mother Coronary Artery Disease Father Cancer Father lung ca. Hypertension Sister Patient Allergies ALLERGIES Allergen Reactions Demerol [Meperidine* Swelling tongue swelled Ceclor [Cefaclor] Other: See Comments heart palpitations Doxycycline GI Upset Grass Pollen Itching Lipitor [Atorvastat* Intolerance, GI Upset Nauseated. Like I had the flu all the time Poison Adelaide Hives Current Medications Current Outpatient Medications on File Prior to Visit Medication Sig dilTIAZem CR (TIAZAC, TAZTIA XT) 180 mg 24 hr capsule Take 1 capsule by mouth once daily. DULoxetine (CYMBALTA) 60 mg capsule Take 1 capsule by mouth once daily. In the evening DULoxetine (CYMBALTA) 30 mg capsule Take 1 capsule by mouth once daily. In the AM hydroCHLOROthiazide (HYDRODIURIL, ESIDRIX) 25 mg tablet Take 1 tablet by mouth once daily. celecoxib (CELEBREX) 200 mg capsule Take 1 capsule by mouth twice daily. potassium chloride ER (K-DUR, KLOR-CON) 20 mEq tablet Take 1 tablet by mouth twice daily. alendronate (FOSAMAX) 70 mg tablet Take 1 tablet by mouth one time a week. Take with a full glass of water, on an empty stomach; do NOT lie down for 30minutes. rosuvastatin (CRESTOR) 40 mg tablet Take 1 tablet by mouth every evening. lansoprazole (PREVACID) 30 mg capsule Take 1 capsule by mouth once daily. pramipexole (MIRAPEX) 0.5 mg tablet Take 1 tablet by mouth twice daily. albuterol HFA (PROAIR HFA) 90 mcg/actuation inhaler Inhale 2 Puffs as instructed every 4 hours as needed for wheezing/shortness of breath. aspirin, enteric coated (ADULT LOW DOSE ASPIRIN) 81 mg EC tablet Take 1 tablet by mouth once daily. predniSONE (DELTASONE) 10 mg tablet Take 4 tabs daily for 3 days, then 2 tabs daily for 3 days, then 1 tab daily for 3 days with food. (Patient not taking: Reported on 04/18/2022 ) cyclobenzaprine (FLEXERIL) 5 mg tablet Take 1 tablet by mouth three times daily as needed for muscle spasm. albuterol (PROVENTIL) 2.5 mg /3 mL (0.083 %) nebulizer solution Use 3 mL via nebulizer every 4 hours as needed for wheezing/shortness of breath. Use over 5-15minutes. No current facility-administered medications on file prior to visit. Social History Social History Tobacco Use Smoking status: Former Smoker Packs/day: 1.00 Years: 43.00 Pack years: 43.00 Types: Cigarettes Start date: 1963 Quit date: 08/14/2006 Years since quittin.6 Smokeless tobacco: Never Used Tobacco comment: Parents smoked in childhood home. Spouse ex-smoker, did smoke early in marriage. Vaping Use Vaping Use: Never used Substance Use Topics Alcohol use: Yes Comment: rarely Drug use: No Review of Symptoms REVIEW OF SYSTEMS See HPI EXAM: BP 128/64 Pulse 90 Resp 16 Wt 76.4 kg (168 lb 6.4 oz) SpO2 92% BMI 37.88 kg/m General Appearance: Well appearing, alert, in no acute distress, well-hydrated, well nourished.. Skin: Skin color, texture, turgor normal, no suspicious rashes or lesions. Musculoskeletal: No joint swelling, deformity, or tenderness. Normal ROM of right arm/bicep. 5/5 strength with flexion/extension at elbow. No deformity with bicep flexion. Health Maintenance List DTAP,TDAP,TD(1 - Tdap) due on 09/21/2022 ANNUAL PCP TEAM CHRONIC DISEASE VISIT due on 02/23/2023 BP CONTROLLED (<130/80) due on 02/23/2023 DIABETES SCREEN due on 02/21/2025 BONE DENSITY Completed INFLUENZA Completed ADVANCE DIRECTIVE DISCUSSION Completed HEPATITIS C SCREENING Completed SHINGRIX VACCINE Completed COVID-19 VACCINE Completed PNEUMOCOCCAL: 65+ Completed ASSESSMENT/PLAN: 1. Upper arm joint pain, right - ICD9: 719.42, ICD10: M25.521 (primary diagnosis) Normal exam today. Seems improved. Discussed likely overuse injury and will give refill on flexeril for PRN use. Advised ice/heat and rest. Cautioned against using ibuprofen/aleve while on Celebrex. F/u PRN. - CYCLOBENZAPRINE 5 MG TABLET Mitesh Perez MD documented in this encounter [facility] 04-09-2022 History of Presen t illness Narrative Subjective HPI HPI Joyce Hurst is a 77 year old female who presents today for CC of right upper arm pain. This started few days ago, started mildly now much worse. Has tried otc medication for relief. Symptoms are worsened by rom of arm. Reports hx of this from time to time. Denies injury. Intermittent tingling of right arm. .Patient presents with: Arm Pain: R upper arm pain x1 day PAST MEDICAL HISTORY Diagnosis Date Abnormal mammogram, unspecified 2009 LEFT BREAST LESION biopsy neg Arthritis of knee 03/01/2013 Arthritis, lumbar spine 06/04/2018 Atherosclerosis of [place] arteries of extremity with intermittent claudication (HCC) 10/16/2017 Bilateral carotid artery stenosis 12/09/2019 Seeing Vascular: US 12/2019 Rt 20-40%, Lt 60-80% Chronic left-sided low back pain with left-sided sciatica 06/18/2018 COVID-19 virus infection 07/21/202106/2021 Current use of proton pump inhibitor 03/27/2017 Mg check 09/2017 Degeneration of lumbar or lumbosacral intervertebral disc 04/01/2020 Depression 02/25/2016 Elevated hemoglobin A1c 12/30/2020 Essential hypertension with goal blood pressure less than 140/90 02/25/2016 Ex-smoker 07/07/2006 Started at 18 up to 1 PPD a day quit 2005 Gastroesophageal reflux disease without esophagitis 07/03/2015 Generalized osteoarthrosis, involving multiple sites History of 2019 novel coronavirus disease (COVID-19) 07/22/2020 Positive test 07/21/2020 History of polymyalgia rheumatica 03/21/2011 Kidney stones 10/07/2013 Lumbosacral radiculopathy 04/01/2020 Mixed hyperlipidemia 09/30/2015 Neuropathy 12/17/2020 Lower extremities, NCS/EMG from 12/09/2020 Obesity 03/17/2014 Osteoarthritis of spine with radiculopathy, lumbosacral region 04/01/2020 Osteoarthritis, hand 11/02/2012 Osteopenia 09/14/2010 PAD (peripheral artery disease) ([facility]) Personal history of colonic polyps Colon polyps Polycythemia, secondary 03/14/2012 PVD (peripheral vascular disease) ([facility]) 10/17/2016 Restless legs 03/01/2013 Right shoulder pain 06/29/2018 Unspecified deformity of ankle and foot, acquired 09/10/2009 PAST SURGICAL HISTORY Procedure Laterality Date APPENDECTOMY age 9 ARTHRP ACETBLR/PROX FEM PROSTC AGRFT/ALGRFT Right 08/17/2020 Dr. Steve Delarosa ARTHRP KNE CONDYLE&PLATU MEDIAL&LAT COMPARTMENTS 03/2013 Knee replacement, total, left ARTL CATHJ/CANNULJ MNTR/TRANSFUSION SPX PRQ 09/07/2006 BALLN ANGIOPLASTY PERC,ILIAC 05/01/2007 ILIAC COLONOSCOPY FLX DX W/COLLJ SPEC WHEN PFRMD 2001 Colonoscopy COLONOSCOPY FLX DX W/COLLJ SPEC WHEN PFRMD 2006 Colonoscopy COLONOSCOPY FLX DX W/COLLJ SPEC WHEN PFRMD 05/13/2011 repeat in 10 yrs. COLONOSCOPY SCREENING 09/21/2021 Dr. Campoverde EGD TRANSORAL BIOPSY SINGLE/MULTIPLE 08/12/2011 ESOPHAGOGASTRODUODENOSCOPY TRANSORAL DIAGNOSTIC 2001 EGD FECAL OCCULT BLOOD TEST 10/11/2017 negative INTRO OF NEEDLE OR INTRACATHETER UPR/LXTR ARTERY 05/02/2007 RIGHT CRYSTAL FINISHER INTRO OF NEEDLE OR INTRACATHETER UPR/LXTR ARTERY 05/02/2007 LEFT CRYSTAL FINISHER INTRO OF NEEDLE OR INTRACATHETER UPR/LXTR ARTERY Right 12/15/2016 sfa INTRODUCTION CATHETER AORTA 05/01/2007 INTRODUCTION CATHETER AORTA 05/02/2007 LIG/TRNSXJ FLP TUBE ABDL/VAG APPR UNI/BI Tubal ligation PAST SURGICAL HISTORY OF 07/19/2002 aorto- to left external iliac and to right common femoral artery PAST SURGICAL HISTORY OF 04/2007 Thrombolysis to L Limb of graft, followed by angioplasty and stenting PAST SURGICAL HISTORY OF Right 02/2017 2nd toe amputated d/t hammer toe PAST SURGICAL HISTORY OF Left 12/14/2018 Bunionectomy an 2nd toe amputation PRIM PRQ TRLUML MCHNL [facility] N-COR N-ICRA 1ST 05/01/2007 REDUCTION OF LARGE BREAST 09/02/2014 SLCTV CATHJ 1ST 2ND ORD [facility] 09/07/2006 RIGHT SLCTV CATHJ 1ST 2ND ORD THR/[facility] 09/07/2006 LEFT STEREOTACTIC CORE BIOPSY 09/20/2007 LEFT STEREOTACTIC CORE BIOPSY LEFT BREAST TEAEC W/PATCH GRF CAROTID VERTB SUBCLAV NECK INC 09/07/2006 L CEA TEAEC W/PATCH GRF CAROTID VERTB SUBCLAV NECK INC Endarterectomy, carotid, left TEMPORAL ARTERY BIOSPY 2010 negative TONSILLECTOMY PRIMARY/SECONDARY <AGE 12 Tonsillectomy TRANSCATH STENT INIT VESSEL,PERCUT 05/01/2007 TUBAL LIGATION, ALLERGIES Demerol [Meperidine (Pf)], Ceclor [Cefaclor], Doxycycline, Grass Pollen, Lipitor [Atorvastatin Calcium], and Poison [place] MEDICATIONS predniSONE (DELTASONE) 10 mg tablet Take 4 tabs daily for 3 days, then 2 tabs daily for 3 days, then 1 tab daily for 3 days with food. dilTIAZem CR (TIAZAC, TAZTIA XT) 180 mg 24 hr capsule Take 1 capsule by mouth once daily. DULoxetine (CYMBALTA) 60 mg capsule Take 1 capsule by mouth once daily. In the evening DULoxetine (CYMBALTA) 30 mg capsule Take 1 capsule by mouth once daily. In the AM hydroCHLOROthiazide (HYDRODIURIL, ESIDRIX) 25 mg tablet Take 1 tablet by mouth once daily. celecoxib (CELEBREX) 200 mg capsule Take 1 capsule by mouth twice daily. potassium chloride ER (K-DUR, KLOR-CON) 20 mEq tablet Take 1 tablet by mouth twice daily. alendronate (FOSAMAX) 70 mg tablet Take 1 tablet by mouth one time a week. Take with a full glass of water, on an empty stomach; do NOT lie down for 30minutes. rosuvastatin (CRESTOR) 40 mg tablet Take 1 tablet by mouth every evening. lansoprazole (PREVACID) 30 mg capsule Take 1 capsule by mouth once daily. pramipexole (MIRAPEX) 0.5 mg tablet Take 1 tablet by mouth twice daily. cyclobenzaprine (FLEXERIL) 5 mg tablet Take 1 tablet by mouth three times daily as needed for muscle spasm. albuterol (PROVENTIL) 2.5 mg /3 mL (0.083 %) nebulizer solution Use 3 mL via nebulizer every 4 hours as needed for wheezing/shortness of breath. Use over 5-15minutes. albuterol HFA (PROAIR HFA) 90 mcg/actuation inhaler Inhale 2 Puffs as instructed every 4 hours as needed for wheezing/shortness of breath. aspirin, enteric coated (ADULT LOW DOSE ASPIRIN) 81 mg EC tablet Take 1 tablet by mouth once daily. FAMILY HISTORY Problem Relation Age of Onset Coronary Artery Disease Mother Hypertension Mother Coronary Artery Disease Father Cancer Father lung ca. Hypertension Sister Social History Tobacco Use Smoking status: Former Smoker Packs/day: 1.00 Years: 43.00 Pack years: 43.00 Types: Cigarettes Start date: 1963 Quit date: 08/14/2006 Years since quittin.6 Smokeless tobacco: Never Used Tobacco comment: Parents smoked in childhood home. Spouse ex-smoker, did smoke early in marriage. Vaping Use Vaping Use: Never used Substance Use Topics Alcohol use: Yes Comment: rarely Drug use: No ROS Objective Blood pressure 142/66, pulse 80, temperature 37 C (98.6 F), resp. rate 20, weight 77.7 kg (171 lb 3.2 oz), SpO2 96 %. Physical Exam Constitutional: General: She is not in acute distress. Appearance: She is not toxic-appearing or diaphoretic. HENT: Head: Normocephalic and atraumatic. Cardiovascular: Pulses: Radial pulses are 2+ on the right side. Pulmonary: Effort: Pulmonary effort is normal. No accessory muscle usage or respiratory distress. Musculoskeletal: Right shoulder: Normal. Right upper arm: Tenderness (anteriorp/posterior) present. No swelling, edema, deformity, lacerations or bony tenderness. Right elbow: Normal. Neurological: Mental Status: She is alert and oriented to person, place, and time. Deep Tendon Reflexes: Reflex Scores: Bicep reflexes are 2+ on the right side and 2+ on the left side. ASSESSMENT/PLAN: 1. Muscle strain - ICD9: 848.9, ICD10: T14.8XXA Suspect overuse tendonitis Will cover with prednisone F/u in 5-7 days for continued s/s. Urgent f/u for severe/worsening s/s. - PREDNISONE 10 MG TABLET Agrees to plan Boy Trujillo APRN.THELMA documented in this encounter [facility] 04-04-2022 Miscellaneous Notes Patient has been identified by name and date of : Yes Pending Prescriptions Disp Refills DILTIAZEM CR 180 MG CAP 90 capsule 1 Sig: Take 1 capsule by mouth once daily. CHERI: No RX INSTRUCTIONS: Patient aware RX will be sent to pharmacy. No need to notify patient. Natalie Bonds MA Iván: 02/2022 Nov: 08/2022 Last refill; 11/2021 90 capsule 1 refills documented in this encounter [facility] 03-31-2022 History of Presen t illness Narrative This note was created using [employer]. Subjective Joyce Hurst is a 77 year old female. HPI Patient presents with cough and congestion over the past 2 weeks. She states the cough has gotten better but she still left with the sinus congestion. She did have COVID in July 2021 and was hospitalized and still uses nocturnal oxygen. She was a smoker for 43 years but quit in 2005. She denies a known history of COPD. No vomiting or diarrhea. No chest pain or shortness of breath. Denies loss of smell or taste. Review of Systems Constitutional: Negative for fatigue and fever. HENT: Positive for congestion, ear pain, sinus pressure, sinus pain and sore throat. Respiratory: Positive for cough. Cardiovascular: Negative. Gastrointestinal: Negative. Genitourinary: Negative. Musculoskeletal: Negative. All other systems reviewed and are negative. PAST MEDICAL HISTORY Diagnosis Date Abnormal mammogram, unspecified 2009 LEFT BREAST LESION biopsy neg Arthritis of knee 03/01/2013 Arthritis, lumbar spine 06/04/2018 Atherosclerosis of [place] arteries of extremity with intermittent claudication (HCC) 10/16/2017 Bilateral carotid artery stenosis 12/09/2019 Seeing Vascular: US 12/2019 Rt 20-40%, Lt 60-80% Chronic left-sided low back pain with left-sided sciatica 06/18/2018 COVID-19 virus infection 07/21/202106/2021 Current use of proton pump inhibitor 03/27/2017 Mg check 09/2017 Degeneration of lumbar or lumbosacral intervertebral disc 04/01/2020 Depression 02/25/2016 Elevated hemoglobin A1c 12/30/2020 Essential hypertension with goal blood pressure less than 140/90 02/25/2016 Ex-smoker 07/07/2006 Started at 18 up to 1 PPD a day quit 2005 Gastroesophageal reflux disease without esophagitis 07/03/2015 Generalized osteoarthrosis, involving multiple sites History of 2019 novel coronavirus disease (COVID-19) 07/22/2020 Positive test 07/21/2020 History of polymyalgia rheumatica 03/21/2011 Kidney stones 10/07/2013 Lumbosacral radiculopathy 04/01/2020 Mixed hyperlipidemia 09/30/2015 Neuropathy 12/17/2020 Lower extremities, NCS/EMG from 12/09/2020 Obesity 03/17/2014 Osteoarthritis of spine with radiculopathy, lumbosacral region 04/01/2020 Osteoarthritis, hand 11/02/2012 Osteopenia 09/14/2010 PAD (peripheral artery disease) ([facility]) Personal history of colonic polyps Colon polyps Polycythemia, secondary 03/14/2012 PVD (peripheral vascular disease) ([facility]) 10/17/2016 Restless legs 03/01/2013 Right shoulder pain 06/29/2018 Unspecified deformity of ankle and foot, acquired 09/10/2009 Current Outpatient Medications Medication Sig Dispense Refill DULoxetine (CYMBALTA) 60 mg capsule Take 1 capsule by mouth once daily. In the evening 90 capsule 1 DULoxetine (CYMBALTA) 30 mg capsule Take 1 capsule by mouth once daily. In the AM hydroCHLOROthiazide (HYDRODIURIL, ESIDRIX) 25 mg tablet Take 1 tablet by mouth once daily. 90 tablet 1 celecoxib (CELEBREX) 200 mg capsule Take 1 capsule by mouth twice daily. 180 capsule 1 potassium chloride ER (K-DUR, KLOR-CON) 20 mEq tablet Take 1 tablet by mouth twice daily. 180 tablet 3 alendronate (FOSAMAX) 70 mg tablet Take 1 tablet by mouth one time a week. Take with a full glass of water, on an empty stomach; do NOT lie down for 30minutes. 12 tablet 3 rosuvastatin (CRESTOR) 40 mg tablet Take 1 tablet by mouth every evening. 90 tablet 1 lansoprazole (PREVACID) 30 mg capsule Take 1 capsule by mouth once daily. 90 capsule 1 pramipexole (MIRAPEX) 0.5 mg tablet Take 1 tablet by mouth twice daily. 180 tablet 1 dilTIAZem CR (TIAZAC, TAZTIA XT) 180 mg 24 hr capsule Take 1 capsule by mouth once daily. 90 capsule 1 albuterol HFA (PROAIR HFA) 90 mcg/actuation inhaler Inhale 2 Puffs as instructed every 4 hours as needed for wheezing/shortness of breath. 1 Each 1 aspirin, enteric coated (ADULT LOW DOSE ASPIRIN) 81 mg EC tablet Take 1 tablet by mouth once daily. 0 amoxicillin-clavulanic acid (AUGMENTIN) 875-125 mg per tablet Take 1 tablet by mouth twice daily for 5 days. 10 tablet 0 cyclobenzaprine (FLEXERIL) 5 mg tablet Take 1 tablet by mouth three times daily as needed for muscle spasm. 15 tablet 0 albuterol (PROVENTIL) 2.5 mg /3 mL (0.083 %) nebulizer solution Use 3 mL via nebulizer every 4 hours as needed for wheezing/shortness of breath. Use over 5-15minutes. 100 mL 2 No current facility-administered medications for this visit. PAST SURGICAL HISTORY Procedure Laterality Date APPENDECTOMY age 9 ARTHRP ACETBLR/PROX FEM PROSTC AGRFT/ALGRFT Right 08/17/2020 Dr. Steve Delarosa ARTHRP KNE CONDYLE&PLATU MEDIAL&LAT COMPARTMENTS 03/2013 Knee replacement, total, left ARTL CATHJ/CANNULJ MNTR/TRANSFUSION SPX PRQ 09/07/2006 BALLN ANGIOPLASTY PERC,ILIAC 05/01/2007 ILIAC COLONOSCOPY FLX DX W/COLLJ SPEC WHEN PFRMD 2001 Colonoscopy COLONOSCOPY FLX DX W/COLLJ SPEC WHEN PFRMD 2006 Colonoscopy COLONOSCOPY FLX DX W/COLLJ SPEC WHEN PFRMD 05/13/2011 repeat in 10 yrs. COLONOSCOPY SCREENING 09/21/2021 Dr. Campoverde EGD TRANSORAL BIOPSY SINGLE/MULTIPLE 08/12/2011 ESOPHAGOGASTRODUODENOSCOPY TRANSORAL DIAGNOSTIC 2001 EGD FECAL OCCULT BLOOD TEST 10/11/2017 negative INTRO OF NEEDLE OR INTRACATHETER UPR/LXTR ARTERY 05/02/2007 RIGHT CRYSTAL FINISHER INTRO OF NEEDLE OR INTRACATHETER UPR/LXTR ARTERY 05/02/2007 LEFT CRYSTAL FINISHER INTRO OF NEEDLE OR INTRACATHETER UPR/LXTR ARTERY Right 12/15/2016 sfa INTRODUCTION CATHETER AORTA 05/01/2007 INTRODUCTION CATHETER AORTA 05/02/2007 LIG/TRNSXJ FLP TUBE ABDL/VAG APPR UNI/BI Tubal ligation PAST SURGICAL HISTORY OF 07/19/2002 aorto- to left external iliac and to right common femoral artery PAST SURGICAL HISTORY OF 04/2007 Thrombolysis to L Limb of graft, followed by angioplasty and stenting PAST SURGICAL HISTORY OF Right 02/2017 2nd toe amputated d/t hammer toe PAST SURGICAL HISTORY OF Left 12/14/2018 Bunionectomy an 2nd toe amputation PRIM PRQ TRLUML MCHNL THRMBC N-COR N-ICRA 1ST 05/01/2007 REDUCTION OF LARGE BREAST 09/02/2014 SLCTV CATHJ 1ST 2ND ORD THRC/BR[facility] 09/07/2006 RIGHT SLCTV CATHJ 1ST 2ND ORD THRC/BRCH/CPHLC BRNC 09/07/2006 LEFT STEREOTACTIC CORE BIOPSY 09/20/2007 LEFT STEREOTACTIC CORE BIOPSY LEFT BREAST TEAEC W/PATCH GRF CAROTID VERTB SUBCLAV NECK INC 09/07/2006 L CEA TEAEC W/PATCH GRF CAROTID VERTB SUBCLAV NECK INC Endarterectomy, carotid, left TEMPORAL ARTERY BIOSPY 2010 negative TONSILLECTOMY PRIMARY/SECONDARY <AGE 12 Tonsillectomy TRANSCATH STENT INIT VESSEL,PERCUT 05/01/2007 TUBAL LIGATION, FAMILY HISTORY Problem Relation Age of Onset Coronary Artery Disease Mother Hypertension Mother Coronary Artery Disease Father Cancer Father lung ca. Hypertension Sister Social History Tobacco Use Smoking status: Former Smoker Packs/day: 1.00 Years: 43.00 Pack years: 43.00 Types: Cigarettes Start date: 1963 Quit date: 08/14/2006 Years since quittin.6 Smokeless tobacco: Never Used Tobacco comment: Parents smoked in childhood home. Spouse ex-smoker, did smoke early in marriage. Vaping Use Vaping Use: Never used Substance Use Topics Alcohol use: Yes Comment: rarely Drug use: No Objective BP 152/80 Pulse 72 Temp 36.9 C (98.4 F) (Tympanic) Resp 18 Wt 76.8 kg (169 lb 6.4 oz) SpO2 97% BMI 38.11 kg/m Physical Exam Vitals reviewed. Constitutional: Appearance: Normal appearance. HENT: Head: Normocephalic and atraumatic. Right Ear: Tympanic membrane, ear canal and external ear normal. Left Ear: Tympanic membrane, ear canal and external ear normal. Nose: Congestion present. Right Sinus: Maxillary sinus tenderness and frontal sinus tenderness present. Left Sinus: Maxillary sinus tenderness and frontal sinus tenderness present. Mouth/Throat: Lips: Pettibone. Mouth: Mucous membranes are moist. Pharynx: Oropharynx is clear. Uvula midline. Cardiovascular: Rate and Rhythm: Normal rate and regular rhythm. Heart sounds: Normal heart sounds. Pulmonary: Effort: Pulmonary effort is normal. Breath sounds: Normal breath sounds. Musculoskeletal: Cervical back: Neck supple. Lymphadenopathy: Cervical: No cervical adenopathy. Skin: General: Skin is warm and dry. Findings: No rash. Neurological: Mental Status: She is alert. Assessment and Plan ASSESSMENT/PLAN: 1. Acute pansinusitis, recurrence not specified - ICD9: 461.8, ICD10: J01.40 - Will begin treatment with Augmentin 875 mg PO BID for 5 days - Supportive care with plenty of fluids, rest, and analgesia prn. - Follow up in 3-5 days if symptoms persist or worsen. - COVID WITH FLUA+B, ROUTINE Jodie Shine PA-C documented in this encounter [facility] 03-25-2022 Miscellaneous Notes Patient was notified Maria Esther Medina Ma Let patient know that her repeat labs are all normal. Brianna Patel PA-C documented in this encounter [facility] 03-15-2022 History of Presen t illness Narrative Scan on 03/14/2022 5:39 PM by External Provider: Consultation - Neurology documented in this encounter [facility] 03-10-2022 Miscellaneous Notes Form will be faxed back informing them that patient does not have the diagnosis of diabetes or neuropathy. Received form for completion from [facility] requesting form completion for Medicare compliance for pt's diabetic shoes. Form on your desk. Mikayla Pruett LPN documented in this encounter [facility] 02-26-2022 Miscellaneous Notes The following approved medication requests have been transmitted electronically. Signed Prescriptions Disp Refills hydroCHLOROthiazide (HYDRODIURIL, ESIDRIX) 25 mg tablet 90 tablet 1 Sig: Take 1 tablet by mouth once daily. CHERI: No Authorizing Provider: MARCELO ACOSTA celecoxib (CELEBREX) 200 mg capsule 180 capsule 1 Sig: Take 1 capsule by mouth twice daily. CHERI: No Authorizing Provider: MARCELO ACOSTA DULoxetine (CYMBALTA) 60 mg capsule 90 capsule 1 Sig: Take 1 capsule by mouth once daily. CHERI: No Authorizing Provider: MARCELO ACOSTA potassium chloride ER (K-DUR, KLOR-CON) 20 mEq tablet 180 tablet 3 Sig: Take 1 tablet by mouth twice daily. CHERI: No Authorizing Provider: MARCELO ACOSTA MD Pt had appt 02/23/22 Pt has appt 08/25/22 Mikayla Pruett LPN documented in this encounter [facility] 02-26-2022 Miscellaneous Notes Patient notified and verbalizes understanding. Left message for pt to contact office. Mikayla Pruett LPN Urine culture shows contamination during collection process. Can we get repeat UA and culture when she is able. I would like to make sure no more blood and/or confirm no infection. Make sure to do best with getting a clean catch. Thanks. Brianna Patel PA-C documented in this encounter [facility] 02-23-2022 Instructions Brianna Patel PA-C - 02/23/2022 12:44 PM EDT Repeat bloodwork in approx 1 month. Follow up routine visit in 6 months. 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-sided sciatica 06/18/2018 COVID-19 virus infection 07/21/202106/2021 Current use of proton pump inhibitor 03/27/2017 Mg check 09/2017 Degeneration of lumbar or lumbosacral intervertebral disc 04/01/2020 Depression 02/25/2016 Elevated hemoglobin A1c 12/30/2020 Essential hypertension with goal blood pressure less than 140/90 02/25/2016 Ex-smoker 07/07/2006 Started at 18 up to 1 PPD a day quit 2006 Gastroesophageal reflux disease without esophagitis 07/03/2015 Generalized osteoarthrosis, involving multiple sites History of 2019 novel coronavirus disease (COVID-19) 07/22/2020 Positive test 07/21/2020 History of polymyalgia rheumatica 03/21/2011 Kidney stones 10/07/2013 Lumbosacral radiculopathy 04/01/2020 Mixed hyperlipidemia 09/30/2015 Neuropathy 12/17/2020 Lower extremities, NCS/EMG from 12/09/2020 Obesity 03/17/2014 Osteoarthritis of spine with radiculopathy, lumbosacral region 04/01/2020 Osteoarthritis, hand 11/02/2012 Osteopenia 09/14/2010 PAD (peripheral artery disease) ([facility]) Personal history of colonic polyps Colon polyps Polycythemia, secondary 03/14/2012 PVD (peripheral vascular disease) ([facility]) 10/17/2016 Restless legs 03/01/2013 Right shoulder pain 06/29/2018 Unspecified deformity of ankle and foot, acquired 09/10/2009 PAST SURGICAL HISTORY Procedure Laterality Date APPENDECTOMY age 9 ARTHRP ACETBLR/PROX FEM PROSTC AGRFT/ALGRFT Right 08/17/2020 Dr. Steve Delarosa ARTHRP KNE CONDYLE&PLATU MEDIAL&LAT COMPARTMENTS -2012 Knee replacement, total, left ARTL CATHJ/CANNULJ MNTR/TRANSFUSION SPX PRQ 09/07/06 BALLN ANGIOPLASTY PERC,ILIAC 05/01/07 ILIAC COLONOSCOPY FLX DX W/COLLJ SPEC WHEN PFRMD 2001 Colonoscopy COLONOSCOPY FLX DX W/COLLJ SPEC WHEN PFRMD 2006 Colonoscopy COLONOSCOPY FLX DX W/COLLJ SPEC WHEN PFRMD 05/13/2011 repeat in 10 yrs. EGD TRANSORAL BIOPSY SINGLE/MULTIPLE 08/12/11 ESOPHAGOGASTRODUODENOSCOPY TRANSORAL DIAGNOSTIC 2001 EGD FECAL OCCULT BLOOD TEST 10/11/2017 negative INTRO OF NEEDLE OR INTRACATHETER UPR/LXTR ARTERY 05/02/07 RIGHT CRYSTAL FINISHER INTRO OF NEEDLE OR INTRACATHETER UPR/LXTR ARTERY 05/02/07 LEFT CRYSTAL FINISHER INTRO OF NEEDLE OR INTRACATHETER UPR/LXTR ARTERY Right 12/15/2016 s[facility] INTRODUCTION CATHETER AORTA 05/01/07 INTRODUCTION CATHETER AORTA 05/02/07 LIG/TRNSXJ FLP TUBE ABDL/VAG APPR UNI/BI Tubal ligation PAST SURGICAL HISTORY OF 07/19/2002 aorto- to left external iliac and to right common femoral artery PAST SURGICAL HISTORY OF 04/2007 Thrombolysis to L Limb of graft, followed by angioplasty and stenting PAST SURGICAL HISTORY OF Right 02/2017 2nd toe amputated d/t hammer toe PAST SURGICAL HISTORY OF Left 12/14/2018 Bunionectomy an 2nd toe amputation PRIM PRQ TRLUML MCHNL THRMBC N-COR N-ICRA 1ST 05/01/07 REDUCTION OF LARGE BREAST 09/02/2014 SLCTV CATHJ 1ST 2ND ORD THRC/BRCH/CPHLC BRNC 09/07/06 RIGHT SLCTV CATHJ 1ST 2ND ORD THRC/BRCH/CPHLC BRNC 09/07/06 LEFT STEREOTACTIC CORE BIOPSY 09/20/07 LEFT STEREOTACTIC CORE BIOPSY LEFT BREAST TEAEC W/PATCH GRF CAROTID VERTB SUBCLAV NECK INC 09/07/06 L CEA TEAEC W/PATCH GRF CAROTID VERTB SUBCLAV NECK INC Endarterectomy, carotid, left TEMPORAL ARTERY BIOSPY 2010 negative TONSILLECTOMY PRIMARY/SECONDARY <AGE 12 Tonsillectomy TRANSCATH STENT INIT VESSEL,PERCUT 05/01/07 TUBAL LIGATION, ALLERGIES: Demerol [Meperidine (Pf)], Ceclor [Cefaclor], Doxycycline, Grass Pollen, Lipitor [Atorvastatin Calcium], and Poison [place]ide Medications reviewed: Yes FAMILY HISTORY Problem Relation Age of Onset Coronary Artery Disease Mother Hypertension Mother Coronary Artery Disease Father Cancer Father lung ca. Hypertension Sister SOCIAL HISTORY: Social History Tobacco Use Smoking status: Former Smoker Packs/day: 1.00 Years: 43.00 Pack years: 43.00 Types: Cigarettes Start date: 1963 Quit date: 08/14/2006 Years since quittin.5 Smokeless tobacco: Never Used Tobacco comment: Parents smoked in childhood home. Spouse ex-smoker, did smoke early in marriage. Vaping Use Vaping Use: Never used Substance Use Topics Alcohol use: Yes Comment: rarely Drug use: No Joyce works out regularly 7 times per week with walking. She watches her diet for sodium, low fat and low cholesterol generally not very much. List of current specialists seen: Neuro- Dr. Finnegan Vascular- Dr. Bartholomew Urology- Dr. Zurdo Weathers CNP Blacksmith Assistant- Dr. King dalton ent Green Building Engineer- Dr. Ragland End of Live Planning discussed including patients advanced directive wishes: Yes I am willing to follow Joyce's advanced directives. PHQ-2 / Depression screen She in the past two weeks denies having felt down, depressed, hopeless or with little interest or pleasure in doing things. Functional Ability/Safety Screen 1. Was the patient's timed Up and Go test unsteady or longer than 30 seconds? No 2. Does the patient need help with the phone, transportation, shopping,preparing meals, housework, laundry, medications or managing money? No 3. Does your home have rugs in the hallway (Y), lack of grab bars in the bathroom, lack of handrails on the stairs or have poor lighting? No Hearing Evaluation: hard of hearing and wears hearing aids PHYSICAL EXAM BP 122/80 (BP Site: Right Arm, BP Position: Sitting, BP Cuff Size: Large Adult) Pulse 76 Temp 36.9 C (98.4 F) Resp 18 Ht 142 cm (4' 7.91 ) Wt 76.2 kg (168 lb) BMI 37.79 kg/m Alert and oriented X 3: YES Body mass index is 37.79 kg/m . Visual acuity: sees ophtho ASSESSMENT/PLAN: 77 year old female The following prevention plan was discussed during the office visit and provided to the patient: See below. Brianna Patel PA-C Chief Complaint Patient presents with: Medicare Wellness Exam HPI Joyce Hurst is a 77 year old female who presents here today for extensive exam. Patient with hx of HTN, HLP, PVD, Neuropathy, GERD, nocturnal oxygen desat, kidney stones, OA, DDD, Osteopenia, and those as below. She denies specific concerns today. Has been working with pulmonary due to continued need for nocturnal oxygen post covid infection. Past medical history, appointments, medications, allergies reviewed. 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-sided sciatica 06/18/2018 COVID-19 virus infection 07/21/202106/2021 Current use of proton pump inhibitor 03/27/2017 Mg check 09/2017 Degeneration of lumbar or lumbosacral intervertebral disc 04/01/2020 Depression 02/25/2016 Elevated hemoglobin A1c 12/30/2020 Essential hypertension with goal blood pressure less than 140/90 02/25/2016 Ex-smoker 07/07/2006 Started at 18 up to 1 PPD a day quit 2005 Gastroesophageal reflux disease without esophagitis 07/03/2015 Generalized osteoarthrosis, involving multiple sites History of 2019 novel coronavirus disease (COVID-19) 07/22/2020 Positive test 07/21/2020 History of polymyalgia rheumatica 03/21/2011 Kidney stones 10/07/2013 Lumbosacral radiculopathy 04/01/2020 Mixed hyperlipidemia 09/30/2015 Neuropathy 12/17/2020 Lower extremities, NCS/EMG from 12/09/2020 Obesity 03/17/2014 Osteoarthritis of spine with radiculopathy, lumbosacral region 04/01/2020 Osteoarthritis, hand 11/02/2012 Osteopenia 09/14/2010 PAD (peripheral artery disease) ([facility]) Personal history of colonic polyps Colon polyps Polycythemia, secondary 03/14/2012 PVD (peripheral vascular disease) ([facility]) 10/17/2016 Restless legs 03/01/2013 Right shoulder pain 06/29/2018 Unspecified deformity of ankle and foot, acquired 09/10/2009 Previous Surgical History PAST SURGICAL HISTORY Procedure Laterality Date APPENDECTOMY age 9 ARTHRP ACETBLR/PROX FEM PROSTC AGRFT/ALGRFT Right 08/17/2020 Dr. Steve Delarosa ARTHRP KNE CONDYLE&PLATU MEDIAL&LAT COMPARTMENTS -2012 Knee replacement, total, left ARTL CATHJ/CANNULJ MNTR/TRANSFUSION SPX PRQ 09/07/06 BALLN ANGIOPLASTY PERC,ILIAC 05/01/07 ILIAC COLONOSCOPY FLX DX W/COLLJ SPEC WHEN PFRMD 2001 Colonoscopy COLONOSCOPY FLX DX W/COLLJ SPEC WHEN PFRMD 2006 Colonoscopy COLONOSCOPY FLX DX W/COLLJ SPEC WHEN PFRMD 05/13/2011 repeat in 10 yrs. EGD TRANSORAL BIOPSY SINGLE/MULTIPLE 08/12/11 ESOPHAGOGASTRODUODENOSCOPY TRANSORAL DIAGNOSTIC 2001 EGD FECAL OCCULT BLOOD TEST 10/11/2017 negative INTRO OF NEEDLE OR INTRACATHETER UPR/LXTR ARTERY 05/02/07 RIGHT CRYSTAL FINISHER INTRO OF NEEDLE OR INTRACATHETER UPR/LXTR ARTERY 05/02/07 LEFT CRYSTAL FINISHER INTRO OF NEEDLE OR INTRACATHETER UPR/LXTR ARTERY Right 12/15/2016 s[facility] INTRODUCTION CATHETER AORTA 05/01/07 INTRODUCTION CATHETER AORTA 05/02/07 LIG/TRNSXJ FLP TUBE ABDL/VAG APPR UNI/BI Tubal ligation PAST SURGICAL HISTORY OF 07/19/2002 aorto- to left external iliac and to right common femoral artery PAST SURGICAL HISTORY OF 04/2007 Thrombolysis to L Limb of graft, followed by angioplasty and stenting PAST SURGICAL HISTORY OF Right 02/2017 2nd toe amputated d/t hammer toe PAST SURGICAL HISTORY OF Left 12/14/2018 Bunionectomy an 2nd toe amputation PRIM PRQ TRLUML MCHNL THRMBC N-COR N-ICRA 1ST 05/01/07 REDUCTION OF LARGE BREAST 09/02/2014 SLCTV CATHJ 1ST 2ND ORD THRC/BRCH/CPHLC BRNC 09/07/06 RIGHT SLCTV CATHJ 1ST 2ND ORD THRC/BRCH/CPHLC BRNC 09/07/06 LEFT STEREOTACTIC CORE BIOPSY 09/20/07 LEFT STEREOTACTIC CORE BIOPSY LEFT BREAST TEAEC W/PATCH GRF CAROTID VERTB SUBCLAV NECK INC 09/07/06 L CEA TEAEC W/PATCH GRF CAROTID VERTB SUBCLAV NECK INC Endarterectomy, carotid, left TEMPORAL ARTERY BIOSPY 2010 negative TONSILLECTOMY PRIMARY/SECONDARY <AGE 12 Tonsillectomy TRANSCATH STENT INIT VESSEL,PERCUT 05/01/07 TUBAL LIGATION, Family History FAMILY HISTORY Problem Relation Age of Onset Coronary Artery Disease Mother Hypertension Mother Coronary Artery Disease Father Cancer Father lung ca. Hypertension Sister Patient Allergies ALLERGIES Allergen Reactions Demerol [Meperidine* Swelling tongue swelled Ceclor [Cefaclor] Other: See Comments heart palpitations Doxycycline GI Upset Grass Pollen Itching Lipitor [Atorvastat* Intolerance, GI Upset Nauseated. Like I had the flu all the time Poison [place] Hives Current Medications Current Outpatient Medications on File Prior to Visit Medication Sig alendronate (FOSAMAX) 70 mg tablet Take 1 tablet by mouth one time a week. Take with a full glass of water, on an empty stomach; do NOT lie down for 30minutes. potassium chloride ER (K-DUR, KLOR-CON) 20 mEq tablet Take 1 tablet by mouth twice daily. rosuvastatin (CRESTOR) 40 mg tablet Take 1 tablet by mouth every evening. DULoxetine (CYMBALTA) 60 mg capsule Take 1 capsule by mouth once daily. lansoprazole (PREVACID) 30 mg capsule Take 1 capsule by mouth once daily. pramipexole (MIRAPEX) 0.5 mg tablet Take 1 tablet by mouth twice daily. celecoxib (CELEBREX) 200 mg capsule Take 1 capsule by mouth twice daily. dilTIAZem CR (TIAZAC, TAZTIA XT) 180 mg 24 hr capsule Take 1 capsule by mouth once daily. hydroCHLOROthiazide (HYDRODIURIL, ESIDRIX) 25 mg tablet Take 1 tablet by mouth once daily. albuterol HFA (PROAIR HFA) 90 mcg/actuation inhaler Inhale 2 Puffs as instructed every 4 hours as needed for wheezing/shortness of breath. aspirin, enteric coated (ADULT LOW DOSE ASPIRIN) 81 mg EC tablet Take 1 tablet by mouth once daily. cyclobenzaprine (FLEXERIL) 5 mg tablet Take 1 tablet by mouth three times daily as needed for muscle spasm. albuterol (PROVENTIL) 2.5 mg /3 mL (0.083 %) nebulizer solution Use 3 mL via nebulizer every 4 hours as needed for wheezing/shortness of breath. Use over 5-15minutes. No current facility-administered medications on file prior to visit. Social History Social History Tobacco Use Smoking status: Former Smoker Packs/day: 1.00 Years: 43.00 Pack years: 43.00 Types: Cigarettes Start date: 1963 Quit date: 08/14/2006 Years since quittin.5 Smokeless tobacco: Never Used Tobacco comment: Parents smoked in childhood home. Spouse ex-smoker, did smoke early in marriage. Vaping Use Vaping Use: Never used Substance Use Topics Alcohol use: Yes Comment: rarely Drug use: No Review of Symptoms REVIEW OF SYSTEMS GENERAL: No weight loss, malaise or fevers HEENT: No changes in hearing or vision, no nose bleeds or other nasal problems NECK: Negative for lumps, goiter, pain and significant neck swelling RESPIRATORY: +shortness of breath that's stable. Negative for cough, hemoptysis, wheezing, COPD, dyspnea CARDIOVASCULAR: Negative for chest pain, leg swelling, CHF or palpitations GI: Negative for abdominal discomfort, blood in stools or black stools, change in bowel habit, heart burn, nausea, vomiting : No history of dysuria, frequency or incontinence MUSCULOSKELETAL: Negative for joint pain or swelling, back pain or muscle pain SKIN: Negative for lesions, rash, and itching PSYCH: Negative for sleep disturbance, mood disorder and recent psychosocial stressors HEMATOLOGY/LYMPHOLOGY: Negative for prolonged bleeding, bruising easily or swollen nodes ENDOCRINE: Negative for cold or heat intolerance, polyuria, polydipsia and goiter NEURO: +n/t in foot. See neuro. No history of headaches, syncope, paralysis, seizures or tremors EXAM: BP 122/80 (BP Site: Right Arm, BP Position: Sitting, BP Cuff Size: Large Adult) Pulse 76 Temp 36.9 C (98.4 F) Resp 18 Ht 142 cm (4' 7.91 ) Wt 76.2 kg (168 lb) BMI 37.79 kg/m General Appearance: Well appearing, alert, in no acute distress, well-hydrated, well nourished.. obese Skin: SK with warty characteristics noted on back. . Head: Normocephalic, no masses, lesions, tenderness or abnormalities. Eyes: Anicteric sclera. Pupils are equally round and reactive to light. Extraocular movements are intact. . Ears: External ears normal, canals clear, TMs pearly judeg. Nose/Sinuses: deferred- mask Oropharynx: deferred- mask. Neck: Supple, no adenopathy; thyroid symmetric, normal size, no bruits. Lungs: Lungs clear to auscultation. No wheezing, rhonchi, rales.. Heart: RRR without murmur, gallop, or rubs. No ectopy. Abdomen: Normal abdominal exam, Abdomen soft, non-tender. Bowel sounds normal. No masses, organomegaly. Extremities: No deformities, edema, skin discoloration, clubbing or cyanosis. Good capillary refill. . Musculoskeletal: No joint swelling, deformity, or tenderness. Peripheral Pulses: Normal. Neurologic: Gait normal. Reflexes normal and symmetric. Sensation grossly intact.. Health Maintenance List BP CONTROLLED (<130/80) Never done ADVANCE DIRECTIVE DISCUSSION Never done DTAP,TDAP,TD(1 - Tdap) due on 09/21/2022 ANNUAL PCP TEAM CHRONIC DISEASE VISIT due on 08/02/2022 DIABETES SCREEN due on 02/21/2025 BONE DENSITY Completed INFLUENZA Completed HEPATITIS C SCREENING Completed PNEUMOVAX AGE 65 AND OVER WITH 5YR LOOKBACK Completed SHINGRIX VACCINE Completed COVID-19 VACCINE Completed MENINGOCOCCAL CONJUGATE Aged Out Data reviewed Component Latest Ref Rng & Units 02/21/2022 WBC 3.70 - 11.00 k/uL 9.61 RBC 3.90 - 5.20 m/uL 5.15 Hemoglobin 11.5 - 15.5 g/dL 15.9 (H) Hematocrit 36.0 - 46.0 % 49.4 (H) MCV 80.0 - 100.0 fL 95.9 MCH 26.0 - 34.0 pg 30.9 MCHC 30.5 - 36.0 g/dL 32.2 RDW-CV 11.5 - 15.0 % 13.7 Platelet Count 150 - 400 k/uL 187 MPV 9.0 - 12.7 fL 11.7 Neut% % 65.8 Abs Neut (ANC) 1.45 - 7.50 k/uL 6.32 Lymph% % 25.5 Abs Lymph 1.00 - 4.00 k/uL 2.45 [place]% % 5.8 Abs [place] <0.87 k/uL 0.56 Eosin% % 2.2 Abs Eosin <0.46 k/uL 0.21 Baso% % 0.4 Abs Baso <0.11 k/uL 0.04 Immature Gran % % 0.3 IMMATURE GRANS (ABS) <0.10 k/uL 0.03 NRBC /100 WBC 0.0 Absolute nRBC <0.01 k/uL <0.01 DTYPE Auto Protein, Total 6.3 - 8.0 g/dL 7.4 Albumin 3.9 - 4.9 g/dL 4.3 Calcium 8.5 - 10.2 mg/dL 10.3 (H) Bilirubin, Total 0.2 - 1.3 mg/dL 0.4 Alkaline Phosphatase 34 - 123 U/L 94 AST 13 - 35 U/L 23 ALT 7 - 38 U/L 14 Glucose 74 - 99 mg/dL 100 (H) BUN 7 - 21 mg/dL 26 (H) Creatinine 0.58 - 0.96 mg/dL 0.80 Sodium 136 - 144 mmol/L 145 (H) Potassium 3.7 - 5.1 mmol/L 4.3 Chloride 97 - 105 mmol/L 104 CO2 22 - 30 mmol/L 29 Anion Gap 9 - 18 mmol/L 12 eGFR >=60 mL/min/1.73m 76 Color Yellow Yellow Clarity Clear Slightly Cloudy (A) Glucose, Urine Negative Negative Bilirubin, Urine Negative Negative Ketones, Urine Negative Negative Specific [place], Ur 1.005 - 1.030 1.018 Hemoglobin/Blood,Ur Negative 1+ (A) pH, Urine 5.0 - 8.0 5.0 Protein, Urine Negative 2+ (A) Urobilinogen Negative 1+ (A) Nitrites Negative Positive (A) Leukest Negative 3+ (A) WBC, Urine 0-5 /HPF >25 /HPF (A) RBC, Urine 0-3 /HPF 3-5 /HPF (A) Bacteria None Seen /HPF Rare (A) Epithelial Cells /HPF Few Total Cholesterol, Nonfasting <200 mg/dL 164 Triglycerides, Nonfasting <150 mg/dL 108 HDL Cholesterol, Nonfasting >39 mg/dL 59 LDL Cholesterol, Nonfasting <100 mg/dL 83 Non HDL Cholesterol, Nonfasting <130 mg/dL 105 VLDL Cholesterol, Nonfasting <30 mg/dL 22 Total Chol/HDL Ratio, Nonfasting <5.10 mg/dL 2.78 LDL/HDL Ratio, Nonfasting <2.54 mg/dL 1.41 Hemoglobin A1C 4.3 - 5.6 % 5.8 (H) Estimated Average Glucose mg/dL 120 Magnesium 1.7 - 2.3 mg/dL 2.0 ASSESSMENT/PLAN: 1. Medicare annual wellness visit, subsequent - ICD9: V70.0, ICD10: Z00.00 (primary diagnosis) - Counseled on healthy diet and regular exercise - Calcium intake with supplements or by diet of 1000 mg/day for under 50, 6846-3033 mg/day for 50+ - Discussed need and benefit for weight loss. BMI 37.79 kg/(m^2) 2. Advance directive in chart - ICD9: V49.89, ICD10: Z78.9 Noted in chart 3. Essential hypertension with goal blood pressure less than 140/90 - ICD9: 401.9, ICD10: I10 - good control - Continue current medication(s) - Recommended regular aerobic exercise. - Recommend home blood pressure monitoring, to bring results in on next visit - Goal of BP <130/80 4. Mixed hyperlipidemia - ICD9: 272.2, ICD10: E78.2 - good control - Encouraged following a low carbohydrate, healthy oil intake diet. - Continue current therapy. 5. Elevated hemoglobin A1c - ICD9: 790.29, ICD10: R73.09 stable 6. 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 oxygen therapy - ICD9: V46.2, ICD10: Z99.81 Continue with pulm 7. Gastroesophageal reflux disease without esophagitis - ICD9: 530.81, ICD10: K21.9 - stable 8. Microscopic hematuria - ICD9: 599.72, ICD10: R31.29 Check for culture today - URINE CULTURE 9. Kidney stones - ICD9: 592.0, ICD10: N20.0 Continue with uro 10. Hypercalcemia - ICD9: 275.42, ICD10: E83.52 Recheck in 1 month - CALCIUM TOTAL BLD - VITAMIN D 25 HYDROXY - PTH INTACT BLD 11. Hypernatremia - ICD9: 276.0, ICD10: E87.0 recheck - SODIUM/NA BLD 12. Elevated hemoglobin (HCC) - ICD9: 282.7, ICD10: D58.2 Recheck in 1 month - CBC + DIFF 13. Toenail deformity - ICD9: 703.9, ICD10: L60.8 Continue with podiatry 14. Ex-smoker - ICD9: V15.82, ICD10: Z87.891 stable 15. Frequent UTI - ICD9: 599.0, ICD10: N39.0 recurrent Continue with urology 16. Bilateral carotid artery stenosis - ICD9: 433.10, 433.30, ICD10: I65.23 Continue with vascular 17. PVD (peripheral vascular disease) (HCC) - ICD9: 443.9, ICD10: I73.9 Continue with vascular 18. Seborrheic keratoses, inflamed - ICD9: 702.11, ICD10: L82.0 Discussed options, risks and benefits of treatments including observation, OTC preps, prescription medication, cryo, and surgery. Patient agreed to proceed with cryotherapy. 3 freeze/thaw cycles with Cry-AC liquid nitrogen spray gun to area as described above. Patient tolerated procedure well. Care instructions given. F/u routine in 6 months. Brianna Patel, PA-C documented in this encounter [facility] 02-18-2022 Miscellaneous Notes Left message of same on pt's identified vm. Also sent message via . Mikayla Pruett LPN Routine labs ordered. Pt comes in for labs today prior to appt 02/23/22. No orders in Epic. Advised pss it does not look like pt is due for labs. Pt had vv with you 08/02/21 and was advised to have medicare exam in 6 months. No labs ordered. Please advise if pt needs labs. Pt aware she will be contacted to let her know if she needs labs or not as Brianna is still with pt's. Per pss pt is agreeable with this. Mikayla Pruett LPN documented in this encounter [facility] 02-09-2022 Miscellaneous Notes Prescription was sent already Patient phones requesting refills as follows: Pending Prescriptions Disp Refills ROSUVASTATIN 40 MG TABLET 90 tablet 1 Sig: Take 1 tablet by mouth every evening. CHERI: No IVÁN 08/02/21 NOV 02/23/22 Please review and advise. Clay Knox LPN documented in this encounter [facility] 02-09-2022 Miscellaneous Notes See other encounter Patient phones requesting refills as follows: Pending Prescriptions Disp Refills ROSUVASTATIN 40 MG TABLET 90 tablet 1 Sig: Take 1 tablet by mouth every evening. CHERI: No IVÁN 08/02/21 NOV 02/23/22 Please review and advise. Clay Knox LPN documented in this encounter [facility] 02-08-2022 Miscellaneous Notes Patient phones requesting refills as follows: Pending Prescriptions Disp Refills POTASSIUM CHLORIDE ER 20 MEQ TABLET,EXTENDED RELEASE(PART/CRYST) 60 tablet 5 Sig: Take 1 tablet by mouth twice daily. CHERI: No IVÁN 08/02/21 02/23/22 Please review and advise. Clay Knox LPN documented in this encounter [facility] 02-08-2022 Miscellaneous Notes Patient phones requesting refills as follows: Pending Prescriptions Disp Refills ALENDRONATE 70 MG TABLET 12 tablet 3 Sig: Take 1 tablet by mouth one time a week. Take with a full glass of water, on an empty stomach; do NOT lie down for 30minutes. CHERI: No POTASSIUM CHLORIDE ER 20 MEQ TABLET,EXTENDED RELEASE(PART/CRYST) 60 tablet 5 Sig: Take 1 tablet by mouth twice daily. CHERI: No IVÁN 08/02/21 02/23/22 Please review and advise. Clay Knox LPN documented in this encounter [facility] 02-01-2022 Miscellaneous Notes [employer] message routed to Maureen Weathers PA-C. I do not think this mychart message was intended for me, ? Cedrick Hector DPM documented in this encounter [facility] documented as of this encounter (statuses as of 02/01/2022) [facility] History of Past illness Narrative* Problem Noted Date Resolved Date Medication management 12/04/2018 12/09/2019 Right shoulder pain 06/29/2018 07/10/2020 Neck pain on right side 06/18/2018 07/10/20 20 Bilateral carotid artery disease 03/27/2017 12/09/2019 Overview: Sees [facility] for [facility] f/u. Routine gynecological examination 03/06/2015 12/09/2019 Overview: [facility]. 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 Routine gynecological examination 03/06/2015 12/09/2019 Overview: [facility]. 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 Routine gynecological examination 03/06/2015 12/09/2019 Overview: [facility]. 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 Routine gynecological examination 03/06/2015 12/09/2019 Overview: [facility]. 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 Routine gynecological examination 03/06/2015 12/09/2019 Overview: [facility]. 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 Routine gynecological examination 03/06/2015 12/09/2019 Overview: [facility]. 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 Routine gynecological examination 03/06/2015 12/09/2019 Overview: [facility]. 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 Routine gynecological examination 03/06/2015 12/09/2019 Overview: [facility]. 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 Routine gynecological examination 03/06/2015 12/09/2019 Overview: [facility]. 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 Routine gynecological examination 03/06/2015 12/09/2019 Overview: [facility]. 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 Routine gynecological examination 03/06/2015 12/09/2019 Overview: [facility]. 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 Routine gynecological examination 03/06/2015 12/09/2019 Overview: [facility]. 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 Routine gynecological examination 03/06/2015 12/09/2019 Overview: [facility]. 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 Routine gynecological examination 03/06/2015 12/09/2019 Overview: [facility]. 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 Routine gynecological examination 03/06/2015 12/09/2019 Overview: [facility]. 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 Routine gynecological examination 03/06/2015 12/09/2019 Overview: [facility]. 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 Routine gynecological examination 03/06/2015 12/09/2019 Overview: [facility]. 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 Routine gynecological examination 03/06/2015 12/09/2019 Overview: [facility]. 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 Routine gynecological examination 03/06/2015 12/09/2019 Overview: [facility]. 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 Routine gynecological examination 03/06/2015 12/09/2019 Overview: [facility]. 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 Routine gynecological examination 03/06/2015 12/09/2019 Overview: [facility]. 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 Routine gynecological examination 03/06/2015 12/09/2019 Overview: [facility]. 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 Routine gynecological examination 03/06/2015 12/09/2019 Overview: [facility]. 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 Routine gynecological examination 03/06/2015 12/09/2019 Overview: [facility]. 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 Routine gynecological examination 03/06/2015 12/09/2019 Overview: [facility]. 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 Routine gynecological examination 03/06/2015 12/09/2019 Overview: [facility]. 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 Routine gynecological examination 03/06/2015 12/09/2019 Overview: [facility]. 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 Routine gynecological examination 03/06/2015 12/09/2019 Overview: [facility]. 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 Routine gynecological examination 03/06/2015 12/09/2019 Overview: [facility]. 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 Routine gynecological examination 03/06/2015 12/09/2019 Overview: [facility]. 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 Routine gynecological examination 03/06/2015 12/09/2019 Overview: [facility]. 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 Routine gynecological examination 03/06/2015 12/09/2019 Overview: [facility]. 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 Routine gynecological examination 03/06/2015 12/09/2019 Overview: [facility]. 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 Routine gynecological examination 03/06/2015 12/09/2019 Overview: [facility]. 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 Routine gynecological examination 03/06/2015 12/09/2019 Overview: [facility]. 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 Routine gynecological examination 03/06/2015 12/09/2019 Overview: [facility]. 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 Routine gynecological examination 03/06/2015 12/09/2019 Overview: [facility]. 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 Routine gynecological examination 03/06/2015 12/09/2019 Overview: [facility]. 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 Routine gynecological examination 03/06/2015 12/09/2019 Overview: [facility]. 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 Routine gynecological examination 03/06/2015 12/09/2019 Overview: [facility]. 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 Routine gynecological examination 03/06/2015 12/09/2019 Overview: [facility]. 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 Routine gynecological examination 03/06/2015 12/09/2019 Overview: [facility]. 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 Routine gynecological examination 03/06/2015 12/09/2019 Overview: [facility]. 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 Routine gynecological examination 03/06/2015 12/09/2019 Overview: [facility]. 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 Routine gynecological examination 03/06/2015 12/09/2019 Overview: [facility]. 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 Routine gynecological examination 03/06/2015 12/09/2019 Overview: [facility]. 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 Routine gynecological examination 03/06/2015 12/09/2019 Overview: [facility]. 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 Routine gynecological examination 03/06/2015 12/09/2019 Overview: [facility]. 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 Routine gynecological examination 03/06/2015 12/09/2019 Overview: [facility]. 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 Routine gynecological examination 03/06/2015 12/09/2019 Overview: [facility]. 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 Routine gynecological examination 03/06/2015 12/09/2019 Overview: [facility]. 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 Routine gynecological examination 03/06/2015 12/09/2019 Overview: [facility]. 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 [facility] examination 03/06/2015 12/09/2019 Overview: [facility]. 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 Routine gynecological examination 03/06/2015 12/09/2019 Overview: [facility]. 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 Routine gynecological examination 03/06/2015 12/09/2019 Overview: [facility]. 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 Routine gynecological examination 03/06/2015 12/09/2019 Overview: [facility]. 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 Routine gynecological examination 03/06/2015 12/09/2019 Overview: [facility]. 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 Routine gynecological examination 03/06/2015 12/09/2019 Overview: [facility]. 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 Routine gynecological examination 03/06/2015 12/09/2019 Overview: [facility]. 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 Routine gynecological examination 03/06/2015 12/09/2019 Overview: [facility]. Colon cancer screening 03/06/201512/09 Abdominal pain, unspecified site 07/08/2011 10/03/2012 Rectal bleeding 05/09/2011 10/03/2012 Old disruption of anterior cruciate ligament 9 10/03/2012 History of colonic polyps Overview: Colon polyps documented as of this encounter (statuses as of 06/21/2023) [facility] History of Past illness Narrative* Problem Noted Date Diagnosed Date Resolved Date Medication management 12/04/20182019 Right shoulder pain 06/29/2018 07/10/20 20 Neck pain on right side 06/18/201806/14 Bilateral carotid artery disease 03/27/2017 12/09/2019 Overview: Sees [facility] f[facility]u. Routine gynecological examination 03/06/2015 12/09/2019 Overview: [facility]. Colon cancer screening 03/06/201512/09 Abdominal pain, unspecified site 07/08/2011 10/03/2012 Rectal bleeding 05/09/2011 10/03/2012 Old disruption of anterior cruciate ligament 9 10/03/2012 History of colonic polyps Overview: Colon polyps documented as of this encounter (statuses as of 07/24/2023) [facility] History of Past illness Narrative* Problem Noted Date Diagnosed Date Resolved Date Medication management 12/04/20182019 Right shoulder pain 06/29/2018 07/10/20 20 Neck pain on right side 06/18/201806/14 Bilateral carotid artery disease 03/27/2017 12/09/2019 Overview: Sees [facility] f[facility]u. Routine gynecological examination 03/06/2015 12/09/2019 Overview: [facility]. Colon cancer screening 03/06/201512/09 Abdominal pain, unspecified site 07/08/2011 10/03/2012 Rectal bleeding 05/09/2011 10/03/2012 Old disruption of anterior cruciate ligament 9 10/03/2012 History of colonic polyps Overview: Colon polyps documented as of this encounter (statuses as of 07/24/2023) [facility] History of Past illness Narrative* Problem Noted Date Diagnosed Date Resolved Date Medication management 12/04/20182019 Right shoulder pain 06/29/2018 07/10/20 20 Neck pain on right side 06/18/201806/14 Bilateral carotid artery disease 03/27/2017 12/09/2019 Overview: Sees [facility] f[facility]u. Routine gynecological examination 03/06/2015 12/09/2019 Overview: [facility]. Colon cancer screening 03/06/201512/09 Abdominal pain, unspecified site 07/08/2011 10/03/2012 Rectal bleeding 05/09/2011 10/03/2012 Old disruption of anterior cruciate ligament 9 10/03/2012 History of colonic polyps Overview: Colon polyps documented as of this encounter (statuses as of 08/01/2023) [facility] History of Past illness Narrative* Problem Noted Date Diagnosed Date Resolved Date Medication management 12/04/20182019 Right shoulder pain 06/29/2018 07/10/20 20 Neck pain on right side 06/18/201806/14 Bilateral carotid artery disease 03/27/2017 12/09/2019 Overview: Sees [facility] f[facility]u. Routine gynecological examination 03/06/2015 12/09/2019 Overview: [facility]. Colon cancer screening 03/06/201512/09 Abdominal pain, unspecified site 07/08/2011 10/03/2012 Rectal bleeding 05/09/2011 10/03/2012 Old disruption of anterior cruciate ligament 9 10/03/2012 History of colonic polyps Overview: Colon polyps documented as of this encounter (statuses as of 08/31/2023) [facility] History of Past illness Narrative* Problem Noted Date Diagnosed Date Resolved Date Medication management 12/04/20182019 Right shoulder pain 06/29/2018 07/10/20 20 Neck pain on right side 06/18/201806/14 Bilateral carotid artery disease 03/27/2017 12/09/2019 Overview: [facility]es [facility] f[facility]u. Routine gynecological examination 03/06/2015 12/09/2019 Overview: [facility]. Colon cancer screening 03/06/201512/09 Abdominal pain, unspecified site 07/08/2011 10/03/2012 Rectal bleeding 05/09/2011 10/03/2012 Old disruption of anterior cruciate ligament 9 10/03/2012 History of colonic polyps Overview: Colon polyps documented as of this encounter (statuses as of 09/17/2023) [facility] History of Past illness Narrative* Problem Noted Date Diagnosed Date Resolved Date Medication management 12/04/20182019 Right shoulder pain 06/29/2018 07/10/20 20 Neck pain on right side 06/18/201806/14 Bilateral carotid artery disease 03/27/2017 12/09/2019 Overview: Sees [facility] f[facility]u. Routine gynecological examination 03/06/2015 12/09/2019 Overview: [facility]. Colon cancer screening 03/06/201512/09 Abdominal pain, unspecified site 07/08/2011 10/03/2012 Rectal bleeding 05/09/2011 10/03/2012 Old disruption of anterior cruciate ligament 9 10/03/2012 History of colonic polyps Overview: Colon polyps documented as of this encounter (statuses as of 10/03/2023) [facility] History of Past illness Narrative* Problem Noted Date Diagnosed Date Resolved Date Medication management 12/04/20182019 Right shoulder pain 06/29/2018 07/10/20 20 Neck pain on right side 06/18/201806/14 Bilateral carotid artery disease 03/27/2017 12/09/2019 Overview: See [facility] f[facility]. Routine gynecological examination 03/06/2015 12/09/2019 Overview: [facility]. Colon cancer screening 03/06/201512/09 Abdominal pain, unspecified site 07/08/2011 10/03/2012 Rectal bleeding 05/09/2011 10/03/2012 Old disruption of anterior cruciate ligament 9 10/03/2012 History of colonic polyps Overview: Colon polyps documented as of this encounter (statuses as of 10/03/2023) [facility] History of Past illness Narrative* Problem Noted Date Diagnosed Date Resolved Date Medication management 12/04/20182019 Right shoulder pain 06/29/2018 07/10/20 20 Neck pain on right side 06/18/201806/14 Bilateral carotid artery disease 03/27/2017 12/09/2019 Overview: [facility]. Routine gynecological examination 03/06/2015 12/09/2019 Overview: [facility]. Colon cancer screening 03/06/201512/09 Abdominal pain, unspecified site 07/08/2011 10/03/2012 Rectal bleeding 05/09/2011 10/03/2012 Old disruption of anterior cruciate ligament 9 10/03/2012 History of colonic polyps Overview: Colon polyps documented as of this encounter (statuses as of 10/04/2023) [address]22-2019 History of Past illness Narrative* Problem Noted Date Diagnosed Date Resolved Date Medication management 12/04/20182019 Right shoulder pain 06/29/2018 07/10/20 20 Neck pain on right side 06/18/201806/14 Bilateral carotid artery disease 03/27/2017 12/09/2019 Overview: [facility] f[facility]. Routine gynecological examination 03/06/2015 12/09/2019 Overview: [facility]. Colon cancer screening 03/06/201512/09 Abdominal pain, unspecified site 07/08/2011 10/03/2012 Rectal bleeding 05/09/2011 10/03/2012 Old disruption of anterior cruciate ligament 9 10/03/2012 History of colonic polyps Overview: Colon polyps documented as of this encounter (statuses as of 10/04/2023) [facility] History of Past illness Narrative* Problem Noted Date Diagnosed Date Resolved Date Medication management 12/04/20182019 Right shoulder pain 06/29/2018 07/10/20 20 Neck pain on right side 06/18/201806/14 Bilateral carotid artery disease 03/27/2017 [facility]09[facility]ine gynecological examination 03/06/2015 12/09/2019 Overview: [facility]. Colon cancer screening 03/06/201512/09 Abdominal pain, unspecified site 07/08/2011 10/03/2012 Rectal bleeding 05/09/2011 10/03/2012 Old disruption of anterior cruciate ligament 9 10/03/2012 History of colonic polyps Overview: Colon polyps documented as of this encounter (statuses as of 10/14/2023) [facility] Osteopenia, unspecified location Hypokalemia [facility]opotassemia [facility] Hypokalemia Hypopotassemia [facility] Diagnosis Mixed hyperlipidemia- Primary Essential hypertension with goal blood pressure less than 140/90 Elevated hemoglobin A1c Other abnormal blood chemistry Current use of proton pump inhibitor Encounter for long-term (current) use of other medications [facility] Diagnosis Medicare annual wellness visit, subsequent- Primary Routine general medical examination at a health care facility Advance directive in chart Other specified conditions influencing health status Essential hypertension with goal blood pressure less than 140/90 Mixed hyperlipidemia Elevated hemoglobin A1c Other abnormal blood chemistry 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 oxygen therapy Gastroesophageal reflux disease without esophagitis Esophageal reflux Microscopic hematuria Kidney stones Calculus of kidney Hypercalcemia Hypernatremia Hyperosmolality and/or hypernatremia Elevated hemoglobin (HCC) Other hemoglobinopathies Toenail deformity Unspecified disease of nail Ex-smoker Personal history of tobacco use, presenting hazards to health Frequent UTI Urinary tract infection, site not specified Bilateral carotid artery stenosis Occlusion and stenosis of carotid artery without mention of cerebral infarction PVD (peripheral vascular disease) (HCC) Peripheral vascular disease, unspecified Seborrheic keratoses, inflamed Inflamed seborrheic keratosis [facility] Diagnosis Microscopic hematuria- Primary [facility] Diagnosis Essential hypertension Unspecified essential hypertension Hypokalemia Hypopotassemia [facility] Diagnosis Acute pansinusitis, recurrence not specified- Primary [facility] Diagnosis Muscle strain- Primary Unspecified site of sprain and strain [facility] Diagnosis Upper arm joint pain, right- Primary [facility] Diagnosis Hypokalemia Hypopotassemia [facility] Diagnosis Acute otitis externa of right ear, unspecified type- Primary [facility] Diagnosis Essential hypertension Unspecified essential hypertension [facility] Diagnosis Otalgia, right [facility] Diagnosis Encounter for screening mammogram for breast cancer [facility] Diagnosis Essential hypertension with goal blood pressure less than 140/90- Primary [facility] Diagnosis Essential hypertension with goal blood pressure less than 140/90- Primary [facility] Diagnosis Acute otitis media, right- Primary Unspecified otitis media Impacted cerumen of right ear Impacted cerumen [facility] Diagnosis Hypokalemia Hypopotassemia [facility]* Diagnosis Need for vaccination- Primary Need for prophylactic vaccination and inoculation against unspecified single disease [facility] Diagnosis Need for COVID-19 vaccine- Primary [facility] Diagnosis Acute gastritis without hemorrhage, unspecified gastritis type- Primary [facility] Diagnosis Atherosclerosis of [place] artery of both lower extremities with intermittent claudication (HCC)- Primary Atherosclerosis of [place] arteries of the extremities with intermittent claudication Bilateral carotid artery stenosis Occlusion and stenosis of carotid artery without mention of cerebral infarction [facility] Diagnosis Post-COVID syndrome- Primary Oxygen dependent Dependence on supplemental oxygen Lung nodules Other nonspecific abnormal finding of lung field [facility] Diagnosis Essential hypertension Unspecified essential hypertension [facility] Diagnosis Atherosclerosis of [place] artery of both lower extremities with intermittent claudication (HCC)- Primary Atherosclerosis of [place] arteries of the extremities with intermittent claudication Bilateral carotid artery stenosis Occlusion and stenosis of carotid artery without mention of cerebral infarction [facility] Diagnosis Bacterial sinusitis- Primary Unspecified sinusitis (chronic) Throat pain [facility] Diagnosis APPOINTMENT CANCELLED- Primary [facility] Diagnosis Medicare annual wellness visit, subsequent- Primary Routine general medical examination at a health care facility Advance directive in chart Other specified conditions influencing health status Essential hypertension with goal blood pressure less than 140/90 Mixed hyperlipidemia Elevated hemoglobin A1c Other abnormal blood chemistry PVD (peripheral vascular disease) (HCC) Peripheral vascular disease, unspecified Atherosclerosis of [place] artery of both lower extremities with intermittent claudication (HCC) Atherosclerosis of [place] arteries of the extremities with intermittent claudication Bilateral carotid artery stenosis Occlusion and stenosis of carotid artery without mention of cerebral infarction Depression, unspecified depression type Class 2 obesity due to excess calories without serious comorbidity with body mass index (BMI) of 36.0 to 36.9 in adult Osteoarthritis of spine with radiculopathy, lumbosacral region Polyneuropathy Unspecified hereditary and idiopathic peripheral neuropathy Restless legs Restless legs syndrome (RLS) [facility] Diagnosis Polycythemia, secondary [facility] Diagnosis Essential hypertension Unspecified essential hypertension [facility] Diagnosis Osteopenia, unspecified location documented in this encounter [facility]* Diagnosis Hypokalemia Hypopotassemia documented [facility] this [facility] Diagnosis Post-COVID syndrome- Primary [facility] Diagnosis Essential hypertension with goal blood pressure less than 140/90- Primary Mixed hyperlipidemia Elevated hemoglobin A1c Other abnormal blood chemistry Gastroesophageal reflux disease without esophagitis Esophageal reflux Depression, unspecified depression type Bilateral carotid artery stenosis Occlusion and stenosis of carotid artery without mention of cerebral infarction Atherosclerosis of [place] artery of both lower extremities with intermittent claudication (HCC) Atherosclerosis of [place] arteries of the extremities with intermittent claudication PVD (peripheral vascular disease) (HCC) Peripheral vascular disease, unspecified Polyneuropathy Unspecified hereditary and idiopathic peripheral neuropathy Restless legs Restless legs syndrome (RLS) Polycythemia, secondary Class 2 obesity due to excess calories without serious comorbidity with body mass index (BMI) of 36.0 to 36.9 in adult Osteopenia, unspecified location DDD (degenerative disc disease), cervical Degeneration of cervical intervertebral disc Medication management Encounter for long-term (current) use of other medications [facility] this [facility] Diagnosis Lung nodules Other nonspecific abnormal finding of lung field [facility] Diagnosis Osteopenia, unspecified location Encounter for gynecological examination (general) (routine) without abnormal findings- Primary [facility] Diagnosis Encounter for routine gynecologic examination in Medicare patient- Primary Screening mammogram for breast cancer [facility] Diagnosis Encounter for screening mammogram for malignant neoplasm of breast Other screening mammogram documented in this encounter [facility] for referral (narrative)* Diagnostic Procedure Only (Routine) - Closed Specialty Diagnoses / Procedures Referred By Ryan del real Referred To Contact [facility] Diagnoses Encounter for screening mammogram for breast cancer Procedures GYPSY SCREENING SCREENING MAMMOGRAPHY BI 2-VIEW BREAST INC Taylor Baez APRN.COMPUTED TOMOGRAPHY TECHNOLOGIST [address] [place] [address] [facility] [address] [place] [address] Referral ID Status Reason Start Date Expiration Date V isits Requested Visits Authorized [id number] Closed Auto-Generate d Referral 08/31/2021 09/30/2022 1 1 [facility] for referral (narrative)* Outpatient Procedure (Routine) - Authorized Specialty Diagnoses / Procedures Referred By Contac t Referred To Contact [facility] Diagnoses Atherosclerosis of [place] artery of both lower extremities with intermittent claudication (HCC) Bilateral carotid artery stenosis Procedures PVR ANK/TORO/TOE [facility] NON-INVAS PHYSIOLOGIC STD EXTREMITY ART 2 LEVEL Ketan Saha MD [address] [place] [address] [facility] [address] [address] Referral ID Status Reason Start Date Expiration Date Visits Requested Visits Authorized [id number] Authorized Auto-Generat ed Referral 2 10/31/2023 1 1 * Outpatient Procedure (Routine) - Authorized Specialty Diagnoses / Procedures Referred By Contac t Referred To Contact [facility] Diagnoses Atherosclerosis of [place] artery of both lower extremities with intermittent claudication (HCC) Bilateral carotid artery stenosis Procedures US CAROTID ARTERIES [facility] DUPLEX SCAN EXTRACRANIAL ART COMPL BI STUDY Ketan Saha MD [address] [place] [address] [address] Referral ID Status Reason Start Date Expiration Date Visits Requested Visits Authorized [id number] Authorized Auto-Generat ed Referral 2 10/31/2023 1 1 [facility] for referral (narrative)* Diagnostic Procedure Only (Routine) - Pending Review Specialty Diagnoses / Procedures Referred By Ryan del real Referred To Contact [facility] Diagnoses Encounter for routine gynecologic examination in Medicare patient Screening mammogram for breast cancer Procedures GYPSY SCREENING SCREENING MAMMOGRAPHY BI 2-VIEW BREAST INC Taylor Baez APRN.CNP [address] [place] [place] [address] [facility] [address] [place] [address] Referral ID Status Reason Start Date Expiration Date Visits Requested Visits Authorized [id number] Pending Review Auto-Generat ed Referral 3 11/01/2024 1 1 [facility] for visit Narrative* Diagnostic Procedure Only (Routine) - Closed Specialty Diagnoses / Procedures Referred By Ryan del real Referred To Contact [facility] Diagnoses Encounter for screening mammogram for breast cancer Procedures GYPSY SCREENING SCREENING MAMMOGRAPHY BI 2-VIEW BREAST INC Taylor Baez APRN.COMPUTED TOMOGRAPHY TECHNOLOGIST [address] [place] [place] [address] [facility] [address] [place] [address] Referral ID Status Reason Start Date Expiration Date V isits Requested Visits Authorized [id number] Closed Auto-Generate d Referral 08/31/2021 09/30/2022 1 1 [facility] for visit Narrative* Diagnostic Procedure Only (Routine) - Closed Specialty Diagnoses / Procedures Referred By Ryan del real Referred To Contact [facility] Diagnoses Encounter for screening mammogram for malignant neoplasm of breast Procedures GYPSY SCREENING SCREENING MAMMOGRAPHY BI 2-VIEW BREAST INC Taylor Baez APRN.COMPUTED TOMOGRAPHY TECHNOLOGIST [address] [place] [place] [address] [facility] [address] [place] [address] Referral ID Status Reason Start Date Expiration Date V isits Requested Visits Authorized [id number] Closed Auto-Generate d Referral 08/16/2023 09/14/2024 1 1 [facility] Summary Purpose Family History No Family History Records FoundNo Family History Records Found Advance Directives No Advanced Directives Records FoundDocuments on File Type Date Recorded 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 Directive(s) 03/11/2011 5:01 PM Documents on File Type Date Recorded 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(s) 03/11/2011 5:01 PM Documents on File Type Date Recorded 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(s) 01/11/2023 2:05 PM Advance Directive(s) 03/11/2011 5:01 PM Documents on File Type Date Recorded 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 Directive(s) 01/11/2023 2:05 PM Advance Directive(s) 03/11/2011 5:01 PM Health Concerns Infection Onset Date Last Indicated Resolved Time COVID-19 Rule-Out 03/31/2022 03/31/2022 Reason for Referral Specialty Diagnoses / Procedures Referred By Ryan del real Referred To Contact CT [facility] Diagnoses Lung nodules Procedures CT CHEST WO IVCON DIAGNOSTIC COMPUTED TOMOGRAPHY THORAX W/O Maureen Mccracken PA-C [address] [place] [address] Ct [facility] Referral ID Status Reason Start Date Expiration Date Visits Requested Visits Authorized [id number] Pending Review Auto-Generat ed Referral 3 12/10/2023 1 1 Specialty Diagnoses / Procedures Referred By Ryan del real Referred To Contact CT IMAGING Diagnoses Lung nodules Procedures CT CHEST WO IVCON DIAGNOSTIC COMPUTED TOMOGRAPHY THORAX W/O Maureen Mccracken PA-C [address] [place] [address] Ct Imaging [id number] Referral ID Status Reason Start Date Expiration Date V isits Requested Visits Authorized [id number] Closed Auto-Generate d Referral 10/18/2022 12/02/2022 1 1 Additional Source Comments INFORMATION SOURCE (unrecogn ized section and content) DATE CREATED AUTHOR AUTHOR'S ORGANIZ ATION 11/09/2023 [facility] Source Comments (unrecognize d section and content) In the event this informatio n is protected by the Federal Confidentiality of Alcohol and Drug Abuse Patient Records regulations: The Federal rules restrict any use of the information to criminally investigate or prosecute any alcohol or drug abuse patient.[facility] HospitalIn the event this information is protected by the Federal Confidentiality of Alcohol and Drug Abuse Patient Records regulations: The Federal rules restrict any use of the information to criminally investigate or prosecute any alcohol or drug abuse patient.[facility] HospitalIn the event this information is protected by the Federal Confidentiality of Alcohol and Drug Abuse Patient Records regulations: The Federal rules restrict any use of the information to criminally investigate or prosecute any alcohol or drug abuse patient.[facility] HospitalIn the event this information is protected by the Federal Confidentiality of Alcohol and Drug Abuse Patient Records regulations: The Federal rules restrict any use of the information to criminally investigate or prosecute any alcohol or drug abuse patient.[facility] HospitalIn the event this information is protected by the Federal Confidentiality of Alcohol and Drug Abuse Patient Records regulations: The Federal rules restrict any use of the information to criminally investigate or prosecute any alcohol or drug abuse patient.[facility] HospitalIn the event this information is protected by the Federal Confidentiality of Alcohol and Drug Abuse Patient Records regulations: The Federal rules restrict any use of the information to criminally investigate or prosecute any alcohol or drug abuse patient.[facility] HospitalIn the event this information is protected by the Federal Confidentiality of Alcohol and Drug Abuse Patient Records regulations: The Federal rules restrict any use of the information to criminally investigate or prosecute any alcohol or drug abuse patient.[facility] HospitalIn the event this information is protected by the Federal Confidentiality of Alcohol and Drug Abuse Patient Records regulations: The Federal rules restrict any use of the information to criminally investigate or prosecute any alcohol or drug abuse patient.[facility] HospitalIn the event this information is protected by the Federal Confidentiality of Alcohol and Drug Abuse Patient Records regulations: The Federal rules restrict any use of the information to criminally investigate or prosecute any alcohol or drug abuse patient.[facility] HospitalIn the event this information is protected by the Federal Confidentiality of Alcohol and Drug Abuse Patient Records regulations: The Federal rules restrict any use of the information to criminally investigate or prosecute any alcohol or drug abuse patient.[facility] HospitalIn the event this information is protected by the Federal Confidentiality of Alcohol and Drug Abuse Patient Records regulations: The Federal rules restrict any use of the information to criminally investigate or prosecute any alcohol or drug abuse patient.[facility] HospitalIn the event this information is protected by the Federal Confidentiality of Alcohol and Drug Abuse Patient Records regulations: The Federal rules restrict any use of the information to criminally investigate or prosecute any alcohol or drug abuse patient.[facility] HospitalIn the event this information is protected by the Federal Confidentiality of Alcohol and Drug Abuse Patient Records regulations: The Federal rules restrict any use of the information to criminally investigate or prosecute any alcohol or drug abuse patient.[facility] HospitalIn the event this information is protected by the Federal Confidentiality of Alcohol and Drug Abuse Patient Records regulations: The Federal rules restrict any use of the information to criminally investigate or prosecute any alcohol or drug abuse patient.[facility] HospitalIn the event this information is protected by the Federal Confidentiality of Alcohol and Drug Abuse Patient Records regulations: The Federal rules restrict any use of the information to criminally investigate or prosecute any alcohol or drug abuse patient.[facility] HospitalIn the event this information is protected by the Federal Confidentiality of Alcohol and Drug Abuse Patient Records regulations: The Federal rules restrict any use of the information to criminally investigate or prosecute any alcohol or drug abuse patient.[facility] HospitalIn the event this information is protected by the Federal Confidentiality of Alcohol and Drug Abuse Patient Records regulations: The Federal rules restrict any use of the information to criminally investigate or prosecute any alcohol or drug abuse patient.[facility] HospitalIn the event this information is protected by the Federal Confidentiality of Alcohol and Drug Abuse Patient Records regulations: The Federal rules restrict any use of the information to criminally investigate or prosecute any alcohol or drug abuse patient.[facility] HospitalIn the event this information is protected by the Federal Confidentiality of Alcohol and Drug Abuse Patient Records regulations: The Federal rules restrict any use of the information to criminally investigate or prosecute any alcohol or drug abuse patient.[facility] HospitalIn the event this information is protected by the Federal Confidentiality of Alcohol and Drug Abuse Patient Records regulations: The Federal rules restrict any use of the information to criminally investigate or prosecute any alcohol or drug abuse patient.[facility] HospitalIn the event this information is protected by the Federal Confidentiality of Alcohol and Drug Abuse Patient Records regulations: The Federal rules restrict any use of the information to criminally investigate or prosecute any alcohol or drug abuse patient.[facility] HospitalIn the event this information is protected by the Federal Confidentiality of Alcohol and Drug Abuse Patient Records regulations: The Federal rules restrict any use of the information to criminally investigate or prosecute any alcohol or drug abuse patient.[facility] HospitalIn the event this information is protected by the Federal Confidentiality of Alcohol and Drug Abuse Patient Records regulations: The Federal rules restrict any use of the information to criminally investigate or prosecute any alcohol or drug abuse patient.[facility] HospitalIn the event this information is protected by the Federal Confidentiality of Alcohol and Drug Abuse Patient Records regulations: The Federal rules restrict any use of the information to criminally investigate or prosecute any alcohol or drug abuse patient.[facility] HospitalIn the event this information is protected by the Federal Confidentiality of Alcohol and Drug Abuse Patient Records regulations: The Federal rules restrict any use of the information to criminally investigate or prosecute any alcohol or drug abuse patient.[facility] HospitalIn the event this information is protected by the Federal Confidentiality of Alcohol and Drug Abuse Patient Records regulations: The Federal rules restrict any use of the information to criminally investigate or prosecute any alcohol or drug abuse patient.[facility] HospitalIn the event this information is protected by the Federal Confidentiality of Alcohol and Drug Abuse Patient Records regulations: The Federal rules restrict any use of the information to criminally investigate or prosecute any alcohol or drug abuse patient.[facility] HospitalIn the event this information is protected by the Federal Confidentiality of Alcohol and Drug Abuse Patient Records regulations: The Federal rules restrict any use of the information to criminally investigate or prosecute any alcohol or drug abuse patient.[facility] HospitalIn the event this information is protected by the Federal Confidentiality of Alcohol and Drug Abuse Patient Records regulations: The Federal rules restrict any use of the information to criminally investigate or prosecute any alcohol or drug abuse patient.[facility] HospitalIn the event this information is protected by the Federal Confidentiality of Alcohol and Drug Abuse Patient Records regulations: The Federal rules restrict any use of the information to criminally investigate or prosecute any alcohol or drug abuse patient.[facility] HospitalIn the event this information is protected by the Federal Confidentiality of Alcohol and Drug Abuse Patient Records regulations: The Federal rules restrict any use of the information to criminally investigate or prosecute any alcohol or drug abuse patient.[facility] HospitalIn the event this information is protected by the Federal Confidentiality of Alcohol and Drug Abuse Patient Records regulations: The Federal rules restrict any use of the information to criminally investigate or prosecute any alcohol or drug abuse patient.[facility] HospitalIn the event this information is protected by the Federal Confidentiality of Alcohol and Drug Abuse Patient Records regulations: The Federal rules restrict any use of the information to criminally investigate or prosecute any alcohol or drug abuse patient.[facility] HospitalIn the event this information is protected by the Federal Confidentiality of Alcohol and Drug Abuse Patient Records regulations: The Federal rules restrict any use of the information to criminally investigate or prosecute any alcohol or drug abuse patient.[facility] HospitalIn the event this information is protected by the Federal Confidentiality of Alcohol and Drug Abuse Patient Records regulations: The Federal rules restrict any use of the information to criminally investigate or prosecute any alcohol or drug abuse patient.[facility] HospitalIn the event this information is protected by the Federal Confidentiality of Alcohol and Drug Abuse Patient Records regulations: The Federal rules restrict any use of the information to criminally investigate or prosecute any alcohol or drug abuse patient.[facility] HospitalIn the event this information is protected by the Federal Confidentiality of Alcohol and Drug Abuse Patient Records regulations: The Federal rules restrict any use of the information to criminally investigate or prosecute any alcohol or drug abuse patient.[facility] HospitalIn the event this information is protected by the Federal Confidentiality of Alcohol and Drug Abuse Patient Records regulations: The Federal rules restrict any use of the information to criminally investigate or prosecute any alcohol or drug abuse patient.[facility] HospitalIn the event this information is protected by the Federal Confidentiality of Alcohol and Drug Abuse Patient Records regulations: The Federal rules restrict any use of the information to criminally investigate or prosecute any alcohol or drug abuse patient.[facility] HospitalIn the event this information is protected by the Federal Confidentiality of Alcohol and Drug Abuse Patient Records regulations: The Federal rules restrict any use of the information to criminally investigate or prosecute any alcohol or drug abuse patient.[facility] HospitalIn the event this information is protected by the Federal Confidentiality of Alcohol and Drug Abuse Patient Records regulations: The Federal rules restrict any use of the information to criminally investigate or prosecute any alcohol or drug abuse patient.[facility] HospitalIn the event this information is protected by the Federal Confidentiality of Alcohol and Drug Abuse Patient Records regulations: The Federal rules restrict any use of the information to criminally investigate or prosecute any alcohol or drug abuse patient.[facility] HospitalIn the event this information is protected by the Federal Confidentiality of Alcohol and Drug Abuse Patient Records regulations: The Federal rules restrict any use of the information to criminally investigate or prosecute any alcohol or drug abuse patient.[facility] HospitalIn the event this information is protected by the Federal Confidentiality of Alcohol and Drug Abuse Patient Records regulations: The Federal rules restrict any use of the information to criminally investigate or prosecute any alcohol or drug abuse patient.[facility] HospitalIn the event this information is protected by the Federal Confidentiality of Alcohol and Drug Abuse Patient Records regulations: The Federal rules restrict any use of the information to criminally investigate or prosecute any alcohol or drug abuse patient.[facility] HospitalIn the event this information is protected by the Federal Confidentiality of Alcohol and Drug Abuse Patient Records regulations: The Federal rules restrict any use of the information to criminally investigate or prosecute any alcohol or drug abuse patient.[facility] HospitalIn the event this information is protected by the Federal Confidentiality of Alcohol and Drug Abuse Patient Records regulations: The Federal rules restrict any use of the information to criminally investigate or prosecute any alcohol or drug abuse patient.[facility] HospitalIn the event this information is protected by the Federal Confidentiality of Alcohol and Drug Abuse Patient Records regulations: The Federal rules restrict any use of the information to criminally investigate or prosecute any alcohol or drug abuse patient.[facility] HospitalIn the event this information is protected by the Federal Confidentiality of Alcohol and Drug Abuse Patient Records regulations: The Federal rules restrict any use of the information to criminally investigate or prosecute any alcohol or drug abuse patient.[facility] HospitalIn the event this information is protected by the Federal Confidentiality of Alcohol and Drug Abuse Patient Records regulations: The Federal rules restrict any use of the information to criminally investigate or prosecute any alcohol or drug abuse patient.[facility] HospitalIn the event this information is protected by the Federal Confidentiality of Alcohol and Drug Abuse Patient Records regulations: The Federal rules restrict any use of the information to criminally investigate or prosecute any alcohol or drug abuse patient.[facility] HospitalIn the event this information is protected by the Federal Confidentiality of Alcohol and Drug Abuse Patient Records regulations: The Federal rules restrict any use of the information to criminally investigate or prosecute any alcohol or drug abuse patient.[facility] HospitalIn the event this information is protected by the Federal Confidentiality of Alcohol and Drug Abuse Patient Records regulations: The Federal rules restrict any use of the information to criminally investigate or prosecute any alcohol or drug abuse patient.[facility] HospitalIn the event this information is protected by the Federal Confidentiality of Alcohol and Drug Abuse Patient Records regulations: The Federal rules restrict any use of the information to criminally investigate or prosecute any alcohol or drug abuse patient.[facility] HospitalIn the event this information is protected by the Federal Confidentiality of Alcohol and Drug Abuse Patient Records regulations: The Federal rules restrict any use of the information to criminally investigate or prosecute any alcohol or drug abuse patient.[facility] HospitalIn the event this information is protected by the Federal Confidentiality of Alcohol and Drug Abuse Patient Records regulations: The Federal rules restrict any use of the information to criminally investigate or prosecute any alcohol or drug abuse patient.[facility] HospitalIn the event this information is protected by the Federal Confidentiality of Alcohol and Drug Abuse Patient Records regulations: The Federal rules restrict any use of the information to criminally investigate or prosecute any alcohol or drug abuse patient.[facility] HospitalIn the event this information is protected by the Federal Confidentiality of Alcohol and Drug Abuse Patient Records regulations: The Federal rules restrict any use of the information to criminally investigate or prosecute any alcohol or drug abuse patient.[facility] HospitalIn the event this information is protected by the Federal Confidentiality of Alcohol and Drug Abuse Patient Records regulations: The Federal rules restrict any use of the information to criminally investigate or prosecute any alcohol or drug abuse patient.[facility] HospitalIn the event this information is protected by the Federal Confidentiality of Alcohol and Drug Abuse Patient Records regulations: The Federal rules restrict any use of the information to criminally investigate or prosecute any alcohol or drug abuse patient.[facility] HospitalIn the event this information is protected by the Federal Confidentiality of Alcohol and Drug Abuse Patient Records regulations: The Federal rules restrict any use of the information to criminally investigate or prosecute any alcohol or drug abuse patient.[facility] HospitalIn the event this information is protected by the Federal Confidentiality of Alcohol and Drug Abuse Patient Records regulations: The Federal rules restrict any use of the information to criminally investigate or prosecute any alcohol or drug abuse patient.[facility] HospitalIn the event this information is protected by the Federal Confidentiality of Alcohol and Drug Abuse Patient Records regulations: The Federal rules restrict any use of the information to criminally investigate or prosecute any alcohol or drug abuse patient.[facility] HospitalIn the event this information is protected by the Federal Confidentiality of Alcohol and Drug Abuse Patient Records regulations: The Federal rules restrict any use of the information to criminally investigate or prosecute any alcohol or drug abuse patient.[facility] HospitalIn the event this information is protected by the Federal Confidentiality of Alcohol and Drug Abuse Patient Records regulations: The Federal rules restrict any use of the information to criminally investigate or prosecute any alcohol or drug abuse patient.[facility] HospitalIn the event this information is protected by the Federal Confidentiality of Alcohol and Drug Abuse Patient Records regulations: The Federal rules restrict any use of the information to criminally investigate or prosecute any alcohol or drug abuse patient.[facility] HospitalIn the event this information is protected by the Federal Confidentiality of Alcohol and Drug Abuse Patient Records regulations: The Federal rules restrict any use of the information to criminally investigate or prosecute any alcohol or drug abuse patient.[facility] HospitalIn the event this information is protected by the Federal Confidentiality of Alcohol and Drug Abuse Patient Records regulations: The Federal rules restrict any use of the information to criminally investigate or prosecute any alcohol or drug abuse patient.[facility] HospitalIn the event this information is protected by the Federal Confidentiality of Alcohol and Drug Abuse Patient Records regulations: The Federal rules restrict any use of the information to criminally investigate or prosecute any alcohol or drug abuse patient.[facility] HospitalIn the event this information is protected by the Federal Confidentiality of Alcohol and Drug Abuse Patient Records regulations: The Federal rules restrict any use of the information to criminally investigate or prosecute any alcohol or drug abuse patient.[facility] HospitalIn the event this information is protected by the Federal Confidentiality of Alcohol and Drug Abuse Patient Records regulations: The Federal rules restrict any use of the information to criminally investigate or prosecute any alcohol or drug abuse patient.[facility] HospitalIn the event this information is protected by the Federal Confidentiality of Alcohol and Drug Abuse Patient Records regulations: The Federal rules restrict any use of the information to criminally investigate or prosecute any alcohol or drug abuse patient.[facility] Reason for Visit (unrecogniz ed section and content) Reason Onset Date Comments Refill Request 02/08/2022 Reason Comments Lab Orders Reason Comments Medicare Wellness Exam Reason Onset Date Comments Refill Request 02/25/2022 Reason Comments form completion Reason Comments outside neurology Reason Comments Cough cough, sinus, conges tion and ESTRADA x 2 weeks Reason Onset Date Comments Refill Request 04/03/2022 Reason Comments Arm Pain R upper arm pain x1 day Reason Comments Pain right arm-completed prednisone but didn't resolve Reason Onset Date Comments Refill Request 04/26/2022 Reason Onset Date Comments Refill Request 05/13/2022 Reason Comments Ear Pain right x 1 week Reason Onset Date Comments Refill Request 06/01/2022 Reason Onset Date Comments Refill Request 06/22/2022 Reason Onset Date Comments Refill Request 07/01/2022 Reason Comments Refill Request Reason Onset Date Comments Refill Request 07/25/2022 Reason Onset Date Comments Refill Request 08/25/2022 Reason Comments Blood Pressure 2wk follow up BP hilda ck Reason Onset Date Comments Refill Request 09/22/2022 Reason Comments Recheck Reason Comments Ear Problem right ear worse-pres sure x 10 days Reason Onset Date Comments Refill Request 10/22/2022 Reason Comments Imm/Inj Reason Comments Appointment Reason Comments Shortness of Breath Fatigue Reason Comments Established Patient Reason Comments Patient Question Reason Onset Date Comments Refill Request 12/20/2022 Reason Comments Established Patient Reason Comments Insurance Authorization Celebrex Reason Comments Sore Throat Pt reported redness, pain, cough, bilateral ear decreased hearing, x1.5 wks. Reason Onset Date Comments Refill Request 02/05/2023 Reason Onset Date Comments Refill Request 03/13/2023 Reason Onset Date Comments Refill Request 03/22/2023 Reason Onset Date Comments Refill Request 04/11/2023 Reason Onset Date Comments Refill Request 04/27/2023 Reason Onset Date Comments Refill Request 05/03/2023 Reason Onset Date Comments Refill Request 07/23/2023 Reason Onset Date Comments Refill Request 07/30/2023 Reason Comments F/U 6 months Reason Comments Radiology CT Specialty Diagnoses / Procedures Referred By Ryan t Referred To Contact CT IMAGING Diagnoses Lung nodules Procedures CT CHEST WO IVCON DIAGNOSTIC COMPUTED TOMOGRAPHY THORAX W/O CNTRST Maureen Weathers PA-C [address] [place] [address] Ct Imaging [place] [address] Referral ID Status Reason Start Date Expiration Date V isits Requested Visits Authorized [id number] Closed Auto-Generate d Referral 10/18/2022 12/02/2022 1 1 Reason Comments Well Woman Reason Onset Date Comments Refill Request 10/13/2023 Care Teams (unrecognized sec tion and content) D[employer] Relationship Specialty Start Date End Date Marcelo Acosta MD [address] [place], [place] [id number] PCP - General Family Practice 03/06/15 Marcelo Ragland MD [address] [place] [address] Physician Orthotics & Prosthetics 10/22/18 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 [employer] 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 Cl[employer] Relationship Specialty Start Date End Date Marcelo Acosta MD [address] [place] [address] PCP - General Family Practice 03/06/15 Marcelo Ragland MD [address] [place] [address] Physician Orthotics & Prosthetics 10/22/18 Dye Range Operator Cloth Relationship Specialty Start Date End Date Marcelo Acosta MD [address] [place] [address] PCP - General Family Practice 03/06/15 Marcelo Ragland MD [address] [place] [phone] Physician Orthotics & Prosthetics 10/22/18 Dye Range Operator Cloth Relationship Specialty Start Date End Date Marcelo Acosta MD [address] [place] [address] PCP - General Family Practice 03/06/15 Marcelo Ragland MD [address] [place] [address] Physician Orthotics & Prosthetics 10/22/18 Dye Range Operator Cloth Relationship Specialty Start Date End Date Marcelo Acosta MD [address] [place] [address] PCP - General Family Practice 03/06/15 Marcelo Ragland MD [address] [place] [address] Physician Orthotics & Prosthetics 10/22/18 Dye Range Operator Cloth Relationship Specialty Start Date End Date Marcelo Acosta MD [address] [place] [address] PCP - General Family Practice 03/06/15 Marcelo Ragland MD [address] [place] [address] Physician Orthotics & Prosthetics 10/22/18 Dye Range Operator Cloth Relationship Specialty Start Date End Date Marcelo Acosta MD [address] [place] [address] PCP - General Family Practice 03/06/15 Marcelo Ragland MD [address] [place] [address] Physician Orthotics & Prosthetics 10/22/18 Dye Range Operator Cloth Relationship Specialty Start Date End Date Marcelo Acosta MD [address] [place] [address] PCP - General Family Practice 03/06/15 Marcelo Ragland MD [address] [place] [phone] Physician Orthotics & Prosthetics 10/22/18 Dye Range Operator Cloth Relationship Specialty Start Date End Date Marcelo Acosta MD [address] [place] [address] PCP - General Family Practice 03/06/15 Marcelo Ragland MD [address] [place] [address] Physician Orthotics & Prosthetics 10/22/18 Dye Range Operator Cloth Relationship Specialty Start Date End Date Marcelo Acosta MD [address] [place] [address] PCP - General Family Practice 03/06/15 Marcelo Ragland MD [address] [place] [address] Physician Orthotics & Prosthetics 10/22/18 Dye Range Operator Cloth Relationship Specialty Start Date End Date Marcelo Acosta MD [address] [place] [address] PCP - General Family Practice 03/06/15 Marcelo Ragland MD [address] [place] [address] Physician Orthotics & Prosthetics 10/22/18 Dye Range Operator Cloth Relationship Specialty Start Date End Date Marcelo Acosta MD [address] [place] [address] PCP - General Family Practice 03/06/15 Marcelo Ragland MD [address] [place] [address] Physician Orthotics & Prosthetics 10/22/18 Dye Range Operator Cloth Relationship Specialty Start Date End Date Marcelo Acosta MD [address] [place] [address] PCP - General Family Practice 03/06/15 Marcelo Ragland MD [address] [place] [address] Physician Orthotics & Prosthetics 10/22/18 Dye Range Operator Cloth Relationship Specialty Start Date End Date Marcelo Acosta MD [address] [place] [address] PCP - General Family Practice 03/06/15 Marcelo Ragland MD [address] [place] [address] Physician Orthotics & Prosthetics 10/22/18 Dye Range Operator Cloth Relationship Specialty Start Date End Date Marcelo Acosta MD [address] [place] [address] PCP - General Family Practice 03/06/15 Marcelo Ragland MD [address] [place] [address] Physician Orthotics & Prosthetics 10/22/18 Dye Range Operator Cloth Relationship Specialty Start Date End Date Marcelo Acosta MD [address] [place] [address] PCP - General Family Medicine 03/06/15 Marcelo Ragland MD [address] [place] [address] Physician Orthotics & Prosthetics 10/22/18 Dye Range Operator Cloth Relationship Specialty Start Date End Date Marcelo Acosta MD [address] [place] [address] PCP - General Family Medicine 03/06/15 Marcelo Ragland MD [address] [place] [address] Physician Orthotics & Prosthetics 10/22/18 Dye Range Operator Cloth Relationship Specialty Start Date End Date Marcelo Acosta MD [address] [place] [address] PCP - General Family Medicine 03/06/15 Marcelo Ragland MD [address] [place] [address] Physician Orthotics & Prosthetics 10/22/18 Dye Range Operator Cloth Relationship Specialty Start Date End Date Marcelo Acosta MD [address] [place] [address] PCP - General Family Medicine 03/06/15 Marcelo Ragland MD [address] [place] [address] Physician Orthotics & Prosthetics 10/22/18 Dye Range Operator Cloth Relationship Specialty Start Date End Date Marcelo Acosta MD [address] [place] [address] PCP - General Family Medicine 03/06/15 Marcelo Ragland MD [address] [place] [address] Physician Orthotics & Prosthetics 10/22/18 Dye Range Operator Cloth Relationship Specialty Start Date End Date Marcelo Acosta MD [address] [place] [address] PCP - General Family Medicine 03/06/15 Marcelo Ragland MD [address] [place] [address] Physician Orthotics & Prosthetics 10/22/18 Dye Range Operator Cloth Relationship Specialty Start Date End Date Marcelo Acosta MD [address] [place] [address] PCP - General Family Medicine 03/06/15 Marcelo Ragland MD [address] [place] [address] Physician Orthotics & Prosthetics 10/22/18 Dye Range Operator Cloth Relationship Specialty Start Date End Date Macrelo Acosta MD [address] [place] [address] PCP - General Family Medicine 03/06/15 Marcelo Ragland MD [address] [place] [address] Physician Orthotics & Prosthetics 10/22/18 Dye Range Operator Cloth Relationship Specialty Start Date End Date Marcelo Acosta MD [address] [place] [address] PCP - General Family Medicine 03/06/15 Marcelo Ragland MD [address] [address] Physician Orthotics & Prosthetics 10/22/18 Dye Range Operator Cloth Relationship Specialty Start Date End Date Marcelo Acosta MD [address] [place] [address] PCP - General Family Medicine 03/06/15 Marcelo Ragland MD [address] [place] [address] Physician Orthotics & Prosthetics 10/22/18 Dye Range Operator Cloth Relationship Specialty Start Date End Date Marcelo Acosta MD [address] [place] [address] PCP - General Family Medicine 03/06/15 Marcelo Ragland MD [address] [place] [address] Physician Orthotics & Prosthetics 10/22/18 Dye Range Operator Cloth Relationship Specialty Start Date End Date Marcelo Acosta MD [address] [place] [address] PCP - General Family Medicine 03/06/15 Marcelo Ragland MD [address] [place] [address] Physician Orthotics & Prosthetics 10/22/18 Dye Range Operator Cloth Relationship Specialty Start Date End Date Marcelo Acosta MD [address] [place] [address] PCP - General Family Medicine 03/06/15 Marcelo Ragland MD [address] [place] [address] Physician Orthotics & Prosthetics 10/22/18 Dye Range Operator Cloth Relationship Specialty Start Date End Date Marcelo Acosta MD [address] [place] [address] PCP - General Family Medicine 03/06/15 Marcelo Ragland MD [address] [place] [address] Physician Orthotics & Prosthetics 10/22/18 Dye Range Operator Cloth Relationship Specialty Start Date End Date Marcelo Acosta MD [address] [place] [address] PCP - General Family Medicine 03/06/15 Marcelo Ragland MD [address] [address] Physician Orthotics & Prosthetics 10/22/18 Dye Range Operator Cloth Relationship Specialty Start Date End Date Marcelo Acosta MD [address] [place] [address] PCP - General Family Medicine 03/06/15 Marcelo Ragland MD [address] [facility] [place] [address] Physician Orthotics & Prosthetics 10/22/18 Dye Range Operator Cloth Relationship Specialty Start Date End Date Marcelo Acosta MD [address] [place] [address] PCP - General Family Medicine 03/06/15 Marcelo Ragland MD [address] [facility] [place] [address] Physician Orthotics & Prosthetics 10/22/18 Dye Range Operator Cloth Relationship Specialty Start Date End Date Marcelo Acosta MD [address] [place] [address] PCP - General Family Medicine 03/06/15 Marcelo Ragland MD [address] [place] [address] Physician Orthotics & Prosthetics 10/22/18 Dye Range Operator Cloth Relationship Specialty Start Date End Date Marcelo Acosta MD [address] [place] [address] PCP - General Family Medicine 03/06/15 Marcelo Ragland MD [address] [place] [address] Physician Orthotics & Prosthetics 10/22/18 Dye Range Operator Cloth Relationship Specialty Start Date End Date Marcelo Acosta MD [address] [place] [address] PCP - General Family Medicine 03/06/15 Marcelo Ragland MD [address] [place] [address] Physician Orthotics & Prosthetics 10/22/18 Dye Range Operator Cloth Relationship Specialty Start Date End Date Marcelo Acosta MD [address] [place] [address] PCP - General Family Medicine 03/06/15 Marcelo Ragland MD [address] [place] [place] [address] Physician Orthotics & Prosthetics 10/22/18 Dye Range Operator Cloth Relationship Specialty Start Date End Date Marcelo Acosta MD [address] [place] [place] [address] PCP - General Family Medicine 03/06/15 Marcelo Ragland MD [address] [place] [place] [address] Physician Orthotics & Prosthetics 10/22/18 Dye Range Operator Cloth Relationship Specialty Start Date End Date Marcelo Acosta MD [address] [place] [place] [address] PCP - General Family Medicine 03/06/15 Marcelo Ragland MD [address] [place] [place] [address] Physician Orthotics & Prosthetics 10/22/18 Dye Range Operator Cloth Relationship Specialty Start Date End Date Marcelo Acosta MD [address] [place] [place] [address] PCP - General Family Medicine 03/06/15 Marcelo Ragland MD [address] [place] [address] Physician Orthotics & Prosthetics 10/22/18 Dye Range Operator Cloth Relationship Specialty Start Date End Date Marcelo Acosta MD [address] [place], [place] [address] PCP - General Family Medicine 03/06/15 Marcelo Ragland MD [address] [place] [address] Physician Orthotics & Prosthetics 10/22/18 Dye Range Operator Cloth Relationship Specialty Start Date End Date Marcelo Acosta MD [address] [place] [address] PCP - General Family Medicine 03/06/15 Marcelo Ragland MD [address] [place] [address] Physician Orthotics & Prosthetics 10/22/18 Dye Range Operator Cloth Relationship Specialty Start Date End Date Marcelo Acosta MD [address] [place] [address] PCP - General Family Medicine 03/06/15 Marcelo Ragland MD [address] [place] [address] Physician Orthotics & Prosthetics 10/22/18 Dye Range Operator Cloth Relationship Specialty Start Date End Date Marcelo Acosta MD [address] [place] [address] PCP - General Family Medicine 03/06/15 Marcelo Ragland MD [address] [place] [address] Physician Orthotics & Prosthetics 10/22/18 Dye Range Operator Cloth Relationship Specialty Start Date End Date Marcelo Acosta MD [address] [place], [place] [address] PCP - General Family Medicine 03/06/15 Marcelo Ragland MD [address] [place], [place] [address] Physician Orthotics & Prosthetics 10/22/18 Dye Range Operator Cloth Relationship Specialty Start Date End Date Marcelo Acosta MD [address] [place], [place] [address]951 PCP - General Family Medicine 03/06/15 Marcelo Ragland MD [address] [place], [place] [address] Physician Orthotics & Prosthetics 10/22/18 Dye Range Operator Cloth Relationship Specialty Start Date End Date Marcelo Acosta MD [address] [place], [place] [address] PCP - General Family Medicine 03/06/15 Marcelo Ragland MD [address] [place], [place] [address] Physician Orthotics & Prosthetics 10/22/18 FOR RECORDS PERTAINING TO PATIENTS WHO ARE OR HAVE BEEN ENROLLED IN A CHEMICAL DEPENDENCY/SUBSTANCEABUSE PROGRAM, SOME INFORMATION MAY BE OMITTED. This clinical summary was aggregated from multiple sources. Caution should be exercised in using it in the provision of clinical care. This summary normalizes information from multiple sources, and as a consequence, information in this document may materially change the coding, format and clinical context of patient data. In addition, data may be omitted in some cases. CLINICAL DECISIONS SHOULD BE BASED ON THE PRIMARY CLINICAL RECORDS. [facility] [email or web address] [email or web address]. provides no warranty or guarantee of the accuracy or completeness of information in this document.
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
== END 2023-11-09 17:32 | disposition home or self-care (01) ==
PROVIDERS: Emergency Provider Emergency Medicine; PCP Family Medicine; Visit Provider Emergency Medicine
DX: M25.512 Pain in left shoulder (principal); Z87.891 Personal history of nicotine dependence; V58.0XXA Driver of pick-up truck or van injured in noncollision transport accident in nontraffic accident, initial encounter; W22.10XA Striking against or struck by unspecified automobile airbag, initial encounter; Y92.89 Other specified places as the place of occurrence of the external cause; K21.9 Gastro-esophageal reflux disease without esophagitis; Z79.899 Other long term (current) drug therapy; E78.00 Pure hypercholesterolemia, unspecified; I10 Essential (primary) hypertension; G25.81 Restless legs syndrome; Z79.82 Long term (current) use of aspirin; Z96.649 Presence of unspecified artificial hip joint; Z96.659 Presence of unspecified artificial knee joint; S80.811A Abrasion, right lower leg, initial encounter
CPT/HCPCS: 73030; 99282

== ENCOUNTER → 2024-01-22 | Outpatient (CLI) | payer MEDICARE, SELFPAY ==
[2024-01-22 11:14] LABS: Hemoglobin A1c 5.5 % (3.8-5.6)
== END | disposition home or self-care (01) ==
PROVIDERS: PCP Family Medicine; Referring Provider Psychiatry & Neurology Neurology; Visit Provider Psychiatry & Neurology Neurology
DX: R73.9 Hyperglycemia, unspecified (principal)
CPT/HCPCS: 36415; 83036

== ENCOUNTER → 2024-07-08 | Outpatient (CLI) | payer MEDICARE, SELFPAY ==
--- NOTE | 2024-07-08 10:15 | MRI_ITS ---
EXAM: MR LUMBAR SPINE WITHOUT INTRAVENOUS CONTRAST CLINICAL INDICATION: Low back Pain radiates down R leg, sharp TECHNIQUE: Multiplanar and multisequence MR images of the lumbar spine without intravenous contrast. COMPARISON: No relevant prior studies available. FINDINGS: VERTEBRAE: Mild anterior listhesis of L5 on S1. SPINAL CORD: Normal. Normal position and signal intensity of the conus medullaris. SOFT TISSUES: Bilateral renal cysts. Right hydronephrosis. DISCS/SPINAL CANAL/NEURAL FORAMINA: L1-L2: Prominent disc space narrowing associated with Modic type II endplate changes moderate facet arthropathy. No disc herniation. Vertebral body osteophytosis causes mild spinal stenosis and moderate bilateral neural foraminal narrowing. L2-L3: Prominent disc space narrowing and facet arthropathy. Broad-based disc protrusion causes moderate to severe spinal stenosis and moderate right and severe left neural foraminal narrowing. L3-L4: Prominent disc space narrowing, bony hypertrophy and Modic type III endplate changes. Prominent facet arthropathy. Severe spinal stenosis related to the bony hypertrophy. Marked left and moderate right neural foraminal narrowing. L4-L5: Prominent disc space narrowing with Modic type II endplate changes. Disc protrusion, ligamentous hypertrophy and facet arthropathy results in severe spinal and neural foraminal stenoses. L5-S1: Prominent disc space narrowing associated with Modic type II endplate changes. There is central disc protrusion, ligamentous hypertrophy and facet arthropathy resulting in mild spinal stenosis and moderate to severe neural foraminal narrowing. MRI/Spine Lumbar (Routine) IMPRESSION: Extensive degenerative disc and facet joint disease resulting in significant multilevel spinal and neural foraminal stenoses. Electronically Signed: Bronson Henley MD at 16:44 EDT ,
== END | disposition home or self-care (01) ==
PROVIDERS: PCP Family Medicine; Referring Provider Orthopaedic Surgery Orthopaedic Surgery of the Spine; Visit Provider Orthopaedic Surgery Orthopaedic Surgery of the Spine
DX: M54.16 Radiculopathy, lumbar region (principal)
CPT/HCPCS: 72148

== ENCOUNTER → 2024-08-09 | Outpatient (CLI) | payer MEDICARE, SELFPAY ==
--- NOTE | 2024-08-09 11:09 | VDLE_ITS ---
Reason For Study: Pain, Swelling BLE RIGHT LEFT GSV is normal. GSV is normal. CFV is compressible, spontaneous, phasic, CFV is compressible, spontaneous, phasic, competent and demonstrates normal competent, and demonstrates normal augmentation. augmentation. FV is compressible, spontaneous, phasic, FV is compressible, spontaneous, phasic, competent and demonstrates normal competent and demonstrates normal augmentation. augmentation. POP V is compressible, spontaneous, phasic, POP V is compressible, spontaneous, phasic, competent and demonstrates normal competent and demonstrates normal augmentation. augmentation. T/P Trunk is compressible. T/P Trunk is compressible. PTV is compressible. PTV is compressible. RT PerV is compressible. LT PerV is compressible. Procedure This is a venous duplex using B-mode, color flow and spectral Doppler. Exam performed in department. A preliminary report was called and/or faxed to Dr. Ragland. VL/Venous Duplex US - Morales Extrem Interpretation Summary Deep veins of the lower extremities are bilaterally patent and compressible seg mentally. There is no evidence of deep vein thrombosis on either side. Valvular competence appears in tact within the proximal deep venous systems bilaterally. The great saphenous veins appear bila terally patent and compressible segmentally. Ordering Physician: Marcelo Ragland Referring Physician: Marcelo Borges Performed By: Erica Joyner, ELIU, RVT
== END | disposition home or self-care (01) ==
LOC: CVS 11:01
PROVIDERS: PCP Family Medicine; Referring Provider Podiatrist; Visit Provider Podiatrist
DX: M79.662 Pain in left lower leg (principal); M79.661 Pain in right lower leg
CPT/HCPCS: 93970

== ENCOUNTER 2024-08-28 13:04 | Inpatient (IN) | payer MEDICARE, SELFPAY ==
[2024-08-20 16:51] LABS: Absolute Lymphocyte Count 2.39 X10^3/uL (0.83-4.51); Absolute Neutrophil Count 5.1 X10^3/uL (2.0-7.7); Basophil# 0.04 X10^3/uL; Basophil% 0.5 % (0-1); Eosinophil# 0.17 X10^3/uL; Hematocrit 47.1 % (37-47); Hemoglobin 15.6 g/dL (12.0-15.0); Lymphocyte # 2.39 X10^3/ul (0.83-4.51); Lymphocyte % 28.5 % (19-41); Mean Corp Hgb Conc 33.1 g/dL (32-36); Mean Corpuscular Hgb 30.5 pg (27.0-32.0); Mean Corpuscular Volume 92.2 fL (81-99); Mean Platelet Vol. 10.3 fl (6.2-12.0); Monocyte# 0.68 X10^3/uL; Monocyte% 8.1 % (0-10); NRBC Flagged by Analyzer 0 % (0-5); Neutrophil # 5.08 X10^3/uL (2.7-7.7); Neutrophil % 60.7 % (47-70); Platelet Count 164 K/mm3 (150-450); RBC Distribution Width CV 13.2 % (11.6-14.6); RBC Distribution Width SD 45.1 fl (35.1-43.9); Red Blood Count 5.11 M/mm3 (4.2-5.4); White Blood Count 8.4 K/mm3 (4.4-11.0)
[2024-08-20 17:17] LABS: Anion Gap 11 (5-15); BUN 25 mg/dL (7-18); BUN/Creat Ratio 28.4 RATIO (10-20); Calcium,Total 10.5 mg/dL (8.5-10.1); Chloride 102 mmol/L (98-107); Creatinine, Serum 0.88 mg/dL (0.55-1.02); EST Glomerular Filtration Rate 66 mL/min (>60); Est Glom Filt Rate - Afr Amer 80 mL/min (>60); Glucose 97 mg/dL (74-106); Potassium 3.2 mmol/L (3.5-5.1); Sodium Level 141 mmol/L (136-145)
[2024-08-20 17:18] LABS: Magnesium 1.9 mg/dL (1.6-2.6)
[2024-08-20 18:07] LABS: HIV - WCH Non-Reactive (Nonreactive); Hepatitis B Surface Antibody Non-Reactive; Hepatitis C Antibody Non-Reactive (Nonreactive)
[2024-08-22 08:13] LABS: Hepatitis A AB, Total Negative (Negative)
[2024-08-28] VITALS (20 sets, daily range): BP systolic 113–154; BP diastolic 42–62; PULSE 68–99; RESP 14–18; TEMP 36.1–36.9; O2SAT 92–100; BMI 33.1
--- OUTSIDE RECORDS SUMMARY | 2024-08-28 05:35 | XMS RPT_ITS | CCD ---
Author Organization [facility] Inform ion Partnership [facility] Care Team Providers Care Internal Control Consultant Name Role Phone Kaelyn Meneses LPN Unavailable Unavailab Kaelyn Cook LPN Unavailable Unavailab atul Acosta MD, Marcelo Soto Primary Care Provider Ellyn CHASE, Marcelo S Unavailable Marcelo Acosta MD Primary Care Provider Ellyn CHASE, Marcelo S Unavailable Karla CHASE, Marcelo A Primary Care Provider Ellyn CHASE, Marcelo S Unavailable Karla CHASE, Marcelo A Primary Care Provider [phone] Ellyn CHASE, Marcelo S Unavailable Ellyn CHASE, Marcelo S Unavailable Marcelo Acosta MD Primary Care Provider Karla CHASE, Marcelo Soto Primary Care Provider [phone] Ellyn CHASE, Marcelo S Unavailable MAUREEN WEATHERS Referring Unavailable MARCELO ACOSTA A Primary Care Unavailable MARCELO ACOSTA A Primary Care Unavailable DEISY ACOSTAREY A Primary Care Unavailable BRIANNA PATEL Referring Unavailable MAUREEN WEATHERS Attending Unavailable DEISY ACOSTAREY A Primary Care Unavailable MARCELO ACOSTA Attending Unavailable DEISY ACOSTAREY A Primary Care Unavailable SELF Referring Unavailable KARLA, MARCELO A Primary Care Unavailable BRIANNA PATEL Referring Unavailable BRIANNA PATEL Attending Unavailable MARCELO ACOSTA A Primary Care Unavailable DEISY ACOSTAREY A Primary Care Unavailable RMAEZ LANIER Referring Unavailable KARLA, MARCELO A Primary Care Unavailable KETAN BACA Attending Unavailable MAUREEN WEATHERS Referring Unavailable KARLA, MARCELO A Primary Care Unavailable KARLA, MARCELO A Primary Care Unavailable SELF Referring Unavailable KETAN SAHA Attending Unavailable KARLA, MARCELO A Primary Care Unavailable BRIANNA PATEL Referring Unavailable KARLA, MARCELO A Primary Care Unavailable SELF Referring Unavailable KARLA, MARCELO A Primary Care Unavailable SELF Referring Unavailable KARLA, MARCELO A Referring Unavailable KARLA, MARCELO A Primary Care Unavailable KARLA, MARCELO A Primary Care Unavailable BRIANNA PATEL Attending Unavailable KARLA, MARCELO A Primary Care Unavailable KARLA, MARCELO A Attending Unavailable BRIANNA PATEL Referring Unavailable KARLA, MARCELO A Referring Unavailable KARLA, MARCELO A Primary Care Unavailable BRIANNA PATEL Attending Unavailable KARLA, MARCELO A Primary Care Unavailable TAYLOR MAHMOOD Referring Unavailable MAHMOOD, AMY Attending Unavailable KARLA, MARCELO A Primary Care Unavailable MAHMOOD, TAYLOR Referring Unavailable KARLA, MARCELO A Primary Care Unavailable KARLA, MARCELO A Primary Care Unavailable BRIANNA PATEL Attending Unavailable BRIANNA PATEL Referring Unavailable KARLA, MARCELO A Primary Care Unavailable KARLA, MARCELO A Primary Care Unavailable BRIANNA PATEL Referring Unavailable KARLA, MARCELO A Primary Care Unavailable KARLA, MARCELO A Primary Care Unavailable MARCELO MCKEON Referring Unavailable KARLA, MARCELO A Primary Care Unavailable BRIANNA PATEL Attending Unavailable KARLA, MARCELO A Primary Care Unavailable BRIANNA PATEL Referring Unavailable KARLA, MARCELO A Primary Care Unavailable BRIANNA PATEL Attending Unavailable KARLA, MARCELO A Referring Unavailable KARLA, MARCELO A Primary Care Unavailable KARLA, MARCELO A Primary Care Unavailable BRIANNA PATEL Attending Unavailable Allergies Allergy Classification Reported Allergen(s) Allergy Type Date of Onset Reaction(s) Facility Angiotensin Converting Enzyme (OLYA) Inhibitors (3 sources) Lisinopril Drug Allergy 2 GI Upset [facility] Cephalosporins (antibiotic) (3 sources) Cefaclor Drug Allergy 5 Other: See Comments [facility] Work Phone: Doxycycline (3 sources) Doxycycline Drug Allergy 1 GI Upset [facility] HMG-CoA Reductase Inhibitors (statins) (3 sources) atorvastatin Drug Allergy 5 Intolerance, GI Upset [facility] Opioid Agonists (3 sources) Meperidine Drug Allergy 7 Swelling [facility] POISON ADELAIDE EXTRACT (3 sources) POISON ADELAIDE EXTRACT Drug Allergy 5 Hives [facility] Pollen (3 sources) Grass pollen Substance Allergy 3 Itching [facility] (20 sources) atorvastatin; Translations: [ATORVASTATIN CALCIUM] Drug Allergy 5 Intolerance, GI Upset [facility] Work Phone: (20 sources) Cefaclor; Translations: [CEFACLOR] Drug Allergy 5 Other: See Comments [facility] Work Phone: (20 sources) Doxycycline; Translations: [DOXYCYCLINE] Drug Allergy 1 GI Upset [facility] Work Phone: (20 sources) Grass pollen; Translations: [GRASS POLLEN] Drug Allergy 3 Itching [facility] Work Phone: (20 sources) Meperidine; Translations: [MEPERIDINE (PF)] Drug Allergy 7 Swelling [facility] Work Phone: (20 sources) POISON ADELAIDE EXTRACT; Translations: [POISON ADELAIDE] Drug Allergy 5 Hives [facility] Work Phone: (20 sources) Lisinopril; Translations: [LISINOPRIL] Drug Allergy 2 GI Upset [facility] Work Phone: Medications Current Medications Medication Drug [...] over 5-15minutes. 100 mL 2 08/27/2021 Active Start: 07-16-2021 take 2 puff(s) by in halation every four hours as needed for wheezing albuterol HFA (PROAIR HFA) 90 mcg/actuation inhaler Inhale 2 Puffs as instructed every 4 hours as needed for wheezing/shortness of breath. 1 Each 1 07/16/2021 Active Comment on above: Inhale 2 Puffs as in structed every 4 hours as needed for wheezing/shortness of breath. Use 3 mL via nebuliz er every 4 hours as needed for wheezing/shortness of breath. Use over 5-15minutes. amoxicillin 875 mg / clavulanate 125 mg oral tablet (7 sources) Penicillin-class Antibacterial Start: 12-30-19 End: 01-06-20 take 1 tablet by mouth twice daily amoxicillin-clavu lanic acid (AUGMENTIN) 875-125 mg per tablet Indications: Bacterial sinusitis Take 1 tablet by mouth twice daily for 7 days. 14 tablet 0 12/30/2022 01/06/2023 Active Start: 10-10-2022 End: 10-17-2022 take 1 tablet by mouth twice daily amoxicillin-clavulanic acid (AUGMENTIN) 875-125 mg per tablet Indications: Acute otitis media, right Take 1 tablet by mouth twice daily for 7 days. 14 tablet 0 10/10/2022 10/17/2022 Active Start: 03-31-2022 End: 04-05-2022 take 1 tablet by mouth twice daily amoxicillin-clavulanic acid (AUGMENTIN) 875-125 mg per tablet Take 1 tablet by mouth twice daily for 5 days. 10 tablet 0 03/31/2022 04/05/2022 Active Start: 04-17-2017 End: 04-27-2017 AMOXICILLIN-POT CLAVULANATE 875-125 MG TABS Take 1 tab every 12 hours AMOXICILLIN-POT CLAVULANATE [id number] Ashkan HO Comment on above: Take 1 tablet by [facility] twice daily for 5 days. Take 1 tablet by [facility] twice daily for 7 days. aspirin 81 mg delayed release oral tablet (20 sources) Platelet Aggregation Inhibitor, Nonsteroidal Anti-inflammatory Drug Start: 5 take 1 tablet by mouth once daily aspirin, enteric coated (ASPIRIN, ENTERIC COATED) 81 mg EC tablet Take 1 tablet by mouth once daily. 0 03/06/2015 Active Comment on above: Take 1 tablet by [facility] once daily. Blood Pressure Test Kit-Large (QUICK RESPONSE BP MONITOR) (20 sources) Start: 2 Blood Pressure Test Kit-Large (QUICK RESPONSE BP MONITOR) Indications: Essential hypertension with goal blood pressure less than 140/90 1 Each once daily. 1 Each 09/08/2022 Active Start: 09-08-2022 Blood Pressure Test Kit-Large (QUICK RESPONSE BP MONITOR) Indications: Essential hypertension with goal blood pressure less than 140/90 1 Each once daily. 1 Each 0 09/08/2022 Active Comment on above: 1 Each once daily. cefadroxil 500 mg oral capsule (10 sources) Cephalosporin Antibacterial Start: 4 End: 4 take 1 capsule by mouth twice daily cefADROxil (DURICEF) 500 mg capsule Take 1 capsule by mouth two times a day for 7 days. 14 capsule 08/15/2024 08/22/2024 Active celecoxib 200 mg oral capsule (20 sources) Nonsteroidal Anti-inflammatory Drug Start: 4 End: 4 take 1 capsule by mouth twice daily celecoxib (CELEBREX) 200 mg capsule Take 1 capsule by mouth two times a day. 180 capsule 1 08/13/2024 Active Start: 11-23-2021 End: 03-13-2023 take 1 capsule by mouth twice daily celecoxib (CELEBREX) 200 mg capsule Take 1 capsule by mouth twice daily. 180 capsule 1 03/14/2023 Active Comment on above: Take 1 capsule by [facility] twice daily. Take 1 capsule by [facility] two times a day. chlorthalidone 50 mg oral tablet (8 sources) Thiazide-like Diuretic Start: 4 take 1 tablet by mouth once daily chlorthalidone (HYGROTON) 50 mg tablet Take 1 tablet by mouth once daily. 30 tablet 3 08/21/2024 Active Start: 08-13-2024 End: 08-21-2024 take 1 tablet by mouth once daily chlorthalidone (HYGROTON) 25 mg tablet Take 1 tablet by mouth once daily. 30 tablet 1 08/13/2024 08/21/2024 Discontinued 24 hr dilTIAZem hydrochloride 180 mg extended release oral capsule (20 sources) Calcium Channel Preeti Start: 03-18-2024 take 1 capsule by mouth once daily dilTIAZem CR (TIAZAC, TAZTIA XT) 180 mg 24 hr capsule Take 1 capsule by mouth once daily. 90 capsule 1 03/18/2024 Active Start: 11-16-2021 End: 03-15-2024 take 1 capsule by mouth once daily dilTIAZem CR (TIAZAC, TAZTIA XT) 180 mg 24 hr capsule Take 1 capsule by mouth once daily. 90 capsule 1 01/15/2024 03/15/2024 Discontinued Comment on above: Take 1 capsule by mo uth once daily. DULoxetine 30 mg delayed release oral capsule (20 sources) Serotonin and Norepinephrine Reuptake Inhibitor Start: take 1 capsule by mouth once daily in the evening DULoxetine (CYMBALTA) 60 mg capsule Take 1 capsule by mouth once daily. In the evening 90 capsule 1 11/03/2023 Active Start: 10-03-2022 End: 06-18-2024 take 1 capsule by mouth once daily in the morning DULoxetine (CYMBALTA) 30 mg capsule Take 1 capsule by mouth once daily. In the AM 90 capsule 1 06/19/2024 Active Start: 01-05-2022 End: 02-27-2023 take 1 capsule by mouth once daily in the evening DULoxetine (CYMBALTA) 60 mg capsule Take 1 capsule by mouth once daily. In the evening 90 capsule 1 02/27/2023 Active Comment on above: Take 1 capsule by mo uth once daily. Take 1 capsule by mo ut once daily. In the evening Take 1 capsule by mo uth once daily. In the AM lansoprazole 30 mg delayed release oral capsule (20 sources) Proton Pump Inhibitor Start: 3 End: take 1 capsule by mouth once daily lansoprazole (PREVACID) 30 mg capsule Take 1 capsule by mouth once daily. 90 capsule 1 01/15/2024 Active Start: 10-24-2022 End: 04-27-2023 take 1 capsule by mouth once daily lansoprazole (PREVACID) 30 mg capsule Take 1 capsule by mouth once daily. 90 capsule 1 10/24/2022 02/05/2023 Discontinued Start: 01-05-2022 End: 10-22-2022 take 1 capsule by mouth once daily lansoprazole (PREVACID) 30 mg capsule Take 1 capsule by mouth once daily. 90 capsule 1 07/25/2022 10/22/2022 Discontinued Start: 04-17-2017 PREVACID SOLUT AB TBDP as directed LANSOPRAZOLE TBDP [id number] Kaelyn Meneses LPN Start: 04-17-2017 PREVACID SOLUT AB TBDP as directed LANSOPRAZOLE TBDP [id number] Kaelyn Meneses LPN Comment on above: Take 1 capsule by mo [facility] once daily. lisinopril 5 mg oral tablet (6 sources) Angiotensin Converting Enzyme Inhibitor Start: 2 End: 2 take 1 tablet by mouth once daily lisinopril (ZESTRIL, PRINIVIL) 5 mg tablet Indications: Essential hypertension with goal blood pressure less than 140/90 Take 1 tablet by mouth once daily. 30 tablet 2 09/08/2022 10/03/2022 Discontinued Start: 04-17-2017 LISINOPRIL TAB S as directed LISINOPRIL TABS [id number] Kaelyn Meneses LPN Comment on above: Take 1 tablet by [facility] once daily. methylPREDNISolone (2 sources) Corticosteroid Start : 01-28 End: 02-03 methylPREDNISolone (MEDROL, MELISSA,) 4 mg Dose-Pack Indications: Sciatica, right side Follow dosing instructions, take with food. 21 tablet 0 01/29/2024 02/04/2024 Active Comment on above: Follow dosing instru ctions, take with food. nitrofurantoin, macrocrystals 25 mg / nitrofurantoin, monohydrate 75 mg oral capsule (3 sources) Nitrofuran Antibacterial Start : 02-25 End: 03-04 take 1 capsule by mouth twice daily at mealtime nitrofurantoin monohydrate and macrocrystal (MACROBID) 100 mg capsule Take 1 capsule by mouth two times a day with meals for 7 days. 14 capsule 0 02/26/2024 03/04/2024 Active Start: 02-28-2023 End: 03-07-2023 take 1 capsule by mouth twice daily at mealtime nitrofurantoin monohydrate and macrocrystal (MACROBID) 100 mg capsule Take 1 capsule by mouth twice daily with meals for 7 days. 14 capsule 0 02/28/2023 03/07/2023 Active Comment on above: Take 1 capsule by mo [facility] twice daily with meals for 7 days. Take 1 capsule by [facility] two times a day with meals for 7 days. ofloxacin 3 mg/ml otic solution (2 sources) Quinolone Antimicrobial Start: 05-23-20 End: 05-30-20 ofloxacin (FLOXIN) 0.3 % otic solution Use 10 Drops in the right ear once daily for 7 days. 4 mL 0 05/23/2022 05/30/2022 Active Comment on above: Use 10 Drops in the right ear once daily for 7 days. microencapsulated potassium chloride 20 meq extended release oral tablet (20 sources) Start: 05-01-20 End: 03-18-20 take 1 tablet by mouth twice daily potassium chloride ER (KLOR-CON) 20 mEq tablet Indications: Hypokalemia Take 1 tablet by mouth two times a day. 180 tablet 3 03/18/2024 Active Start: 10-24-2022 End: 04-27-2023 take 1 tablet by mouth twice daily potassium chloride ER (K-DUR, KLOR-CON) 20 mEq tablet Indications: Hypokalemia Take 1 tablet by mouth twice daily. 180 tablet 3 10/24/2022 02/05/2023 Discontinued Start: 10-25-2021 End: 10-22-2022 take 1 tablet by mouth twice daily potassium chloride ER (K-DUR, KLOR-CON) 20 mEq tablet Indications: Hypokalemia Take 1 tablet by mouth twice daily. 180 tablet 3 05/13/2022 10/22/2022 Discontinued Comment on above: Take 1 tablet by [facility] twice daily. pramipexole dihydrochloride 1 mg oral tablet (20 sources) Nonergot Dopamine Agonist Start: take 1 tablet by mouth twice daily pramipexole (MIRAPEX) 1 mg tablet Take 1 tablet by mouth two times a day. 180 tablet 1 03/18/2024 Active Start: 11-03-2023 End: 03-15-2024 take 1 tablet by mouth twice daily pramipexole (MIRAPEX) 1 mg tablet Take 1 tablet by mouth two times a day. 180 tablet 1 11/03/2023 03/15/2024 Discontinued Start: 08-30-2023 take 1 tablet by [facility] twice daily pramipexole (MIRAPEX) 1 mg tablet Take 1 tablet by mouth two times a day. 180 tablet 0 08/30/2023 Active Start: 01-05-2022 End: 08-30-2023 take 1 tablet by mouth twice daily pramipexole (MIRAPEX) 0.5 mg tablet Take 1 tablet by mouth twice daily. 180 tablet 1 08/25/2022 12/20/2022 Discontinued Comment on above: Take 1 tablet by [facility] twice daily. Take 1 tablet by [facility] two times a day. predniSONE 10 mg oral tablet (5 sources) Start: 04-12-2024 End: 04-21-2024 predniSONE (DELTASONE) 10 mg tablet Take 4 tabs daily for 3 days, then 2 tabs daily for 3 days, then 1 tab daily for 3 days with food. 21 tablet 0 04/12/2024 04/21/2024 Active Start: 04-09-2022 End: 04-18-2022 predniSONE (DELTASONE) 10 mg tablet Indications: Muscle strain Take 4 tabs daily for 3 days, then 2 tabs daily for 3 days, then 1 tab daily for 3 days with food. 21 tablet 0 04/09/2022 04/18/2022 Discontinued Comment on above: Take 4 tabs daily fo r 3 days, then 2 tabs daily for 3 days, then 1 tab daily for 3 days with food. rosuvastatin calcium 40 mg oral tablet (20 sources) HMG-CoA Reductase Inhibitor Start: 2 End: take 1 tablet by mouth once daily in the evening rosuvastatin (CRESTOR) 40 mg tablet Take 1 tablet by mouth every evening. 90 tablet 1 06/19/2024 Active Start: 11-16-2021 take 1 tablet by [facility] once daily in the evening rosuvastatin (CRESTOR) 40 mg tablet Take 1 tablet by mouth every evening. 90 tablet 1 11/16/2021 Active Comment on above: Take 1 tablet by [facility] every evening. Completed/Discontinued Medications Medication Drug Class(es) Dates Sig (Normalized) Sig (Original) alendronic acid 70 mg oral tablet (20 sources) Bisphosphonate Start: 08-23-20 End: 08-30-20 take 1 tablet by mouth every week alendronate (FOSAMAX) 70 mg tablet Indications: Osteopenia, unspecified location Take 1 tablet by mouth one time a week. Take with a full glass of water, on an empty stomach; do NOT lie down for 30minutes. 12 tablet 3 02/09/2022 03/22/2023 Discontinued Comment on above: Take 1 tablet by [facility] one time a week. Take with a full glass of water, on an empty stomach; do NOT lie down for 30minutes. cyclobenzaprine hydrochloride 5 mg oral tablet (20 sources) Muscle Relaxant Start: 09-19-20 End: 02-28-20 take 1 tablet by mouth three times daily as needed for muscle spasms cyclobenzaprine (FLEXERIL) 5 mg tablet Indications: Upper arm joint pain, right Take 1 tablet by mouth three times daily as needed for muscle spasm. 15 tablet 0 04/18/2022 02/27/2023 Discontinued Comment on above: Take 1 tablet by [facility] times daily as needed for muscle spasm. FUROSEMIDE TABS (2 sources) Loop Diuretic Start: 04-17-20 LASIX TABS as directed FUROSEMIDE TABS [id number] Kaelyn Meneses LPN gabapentin 100 mg oral capsule (12 sources) Anti-epileptic Agent Start: 09-25-20 End: 04-11-20 gabapentin (NEURONTIN) 100 mg capsule TWICE A DAY 0 09/25/2023 04/11/2024 Discontinued (Side Effects) Comment on above: TWICE A DAY hydroCHLOROthiazide 25 mg oral tablet (20 sources) Thiazide Diuretic Start: 01-08-20 End: 08-13-20 take 1 tablet by mouth once daily hydroCHLOROthiazide 25 mg tablet Indications: Essential hypertension Take 1 tablet by mouth once daily. 90 tablet 1 03/18/2024 08/13/2024 Discontinued (Changing Therapy/Dosage Form) Start: 11-16-2021 End: 07-30-2023 take 1 tablet by mouth once daily hydroCHLOROthiazide 25 mg tablet Indications: Essential hypertension Take 1 tablet by mouth once daily. 90 tablet 1 07/31/2023 Active Comment on above: Take 1 tablet by [facility] once daily. 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] Onset: 04-11-2024 04-11-2024 Chronic Deficiency and other anemia (1 source) Increased [...] 02-25-2016 02-25-2016 Chronic Fluid and electrolyte disorders (10 sources) Hypokalemia; Translations: [Hypokalemia] Episodic Gastritis and duodenitis (1 source) Acute gastritis; Translations: [Acute gastritis without bleeding] Episodic Genitourinary symptoms and ill-defined conditions (20 sources) Proteinuria; Translations: [Proteinuria, unspecified] Onset: 08-18-2016 08-18-2016 Episodic Immunizations and screening for infectious disease [...] colon; Translations: [Personal history of colonic polyps] Resolved: 12-09-2019 11-09-2021 Episodic Other connective tissue disease (1 source) Muscle pain; Translations: [Myalgia, unspecified site] 04-11-2024 Episodic Other ear and sense organ disorders [...] legs syndrome] Onset: 03-01-2013 03-06-2015 Chronic Other hereditary and degenerative nervous system conditions (1 source) Impaired cognition; Translations: [Mild cognitive impairment, so stated] 12-14-2023 Chronic Other hereditary and degenerative nervous system conditions (1 source) Mild cognitive impairment, so stated; Translations: [Cognitive impairment, mild, so stated] Onset: 11-21-2023 Chronic Other infections; including parasitic (2 sources) Post-viral disorder; 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 Other injuries and conditions due to external causes (1 source) Muscle strain; Translations: [Other injury of unspecified body region, initial encounter] Episodic Other lower respiratory disease (2 sources) Multiple nodules of lung; Translations: [Other nonspecific abnormal finding of lung field] Episodic Other nervous system disorders (20 sources) Polyneuropathy; Translations: [Polyneuropathy, unspecified] Onset: 12-17-2020 02-09-2021 Chronic Other nervous system disorders (1 source) Polyneuropathy, unspecified; Translations: [Polyneuropathy] Onset: 02-09-2021 Chronic Other non-traumatic joint disorders (1 source) Arthralgia of the upper arm; Translations: [Pain in right elbow] Episodic Other non-traumatic joint disorders (3 sources) Pain in left knee; Translations: [Pain in joint, lower leg] Onset: 07-29-2024 07-29-2024 Episodic Other nutritional; endocrine; and metabolic disorders (20 sources) Obesity; Translations: [Obesity, unspecified] Onset: 03-17-2014 03-06-2015 Chronic Other nutritional; endocrine; and metabolic disorders (1 source) Hypercalcemia; Translations: [Hypercalcemia] Chronic Other nutritional; endocrine; and metabolic disorders (1 source) Obesity caused by energy imbalance; Translations: [Other obesity due to excess calories] 08-30-2023 Chronic Other nutritional; endocrine; and metabolic disorders (20 sources) Severe obesity; Translations: [Morbid (severe) obesity due to excess calories] Onset: 03-17-2014 02-29-2024 Chronic Other skin disorders (1 source) Inflamed seborrheic [...] vascular disease, unspecified] Onset: 10-17-2016 09-22-2017 Chronic Residual codes; unclassified (8 sources) Bilateral lower limb edema; Translations: [Localized edema] Onset: 08-13-2024 08-13-2024 Episodic Residual codes; unclassified (1 source) Localized edema; Translations: [Bilateral leg edema] Onset: 08-13-2024 Episodic Respiratory failure; insufficiency; arrest (adult) (20 sources) 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 oxygen therapy; Translations: [Dependence on supplemental oxygen] Onset: 02-23-2022 Chronic Spondylosis; intervertebral disc disorders; other back problems (20 sources) Lumbar arthritis; Translations: [Spondylosis without myelopathy or radiculopathy, lumbar region] Onset: 06-04-2018 06-04-2018 Chronic Thyroid disorders (1 source) Subclinical hypothyroidism; Translations: [Other specified hypothyroidism] 08-13-2024 Chronic Unclassified (1 source) APPOINTMENT CANCELLED Unclassified (1 source) Post-COVID syndrome; Translations: [Post-COVID syndrome] Onset: 11-22-2023 Urinary tract infections (20 sources) Recurrent urinary tract infection; Translations: [Urinary tract infection, site not specified] Onset: 12-30-2020 12-30-2020 Episodic Past or Other Problems Problem Classification Problem Date Documented Da te Episodic/Chronic Abdominal pain (20 sources) Abdominal pain; Translations: [Unspecified abdominal pain] Onset: 07-08-2011 Resolved: 10-03-2012 10-03-2012 Episodic Calculus of urinary tract (20 sources) Kidney stone; Translations: [Calculus of kidney] Onset: 10-07-2013 12-30-2020 Episodic Diabetes mellitus without complication (20 sources) High hemoglobin A1c level; Translations: [Other abnormal glucose] Onset: 12-30-2020 02-09-2021 Episodic Gastrointestinal hemorrhage (20 sources) Rectal hemorrhage; Translations: [Hemorrhage of anus and rectum] Onset: 05-09-2011 Resolved: 10-03-2012 10-03-2012 Episodic Joint disorders and dislocations; trauma-related (20 sources) 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; Translations: [Chronic instability of knee, unspecified knee] Onset: 02-25-2009 Resolved: 10-03-2012 10-03-2012 Chronic Other acquired deformities (20 sources) Acquired deformity of ankle AND/OR foot; Translations: [Unspecified acquired deformity of unspecified lower leg] Onset: 09-10-2009 08-26-2016 Episodic Other aftercare (20 sources) Drug therapy finding; Translations: [Other care home (current) drug therapy] Onset: 03-27-2017 09-22-2017 Episodic Other aftercare (20 sources) Patient encounter status; Translations: [Other extermination supervisor (current) drug therapy] Onset: 03-06-2015 Resolved: 12-09-2019 06-17-2020 Episodic Other aftercare (1 source) Other care home (current) drug therapy; Translations: [Medication management] Onset: 06-17-2020 Episodic Other bone disease and musculoskeletal deformities (20 sources) Osteopenia; Translations: [Other specified disorders of bone density and structure, unspecified site] Onset: 09-14-2010 09-29-2017 Episodic Other bone disease and musculoskeletal deformities (1 source) Other specified disorders of bone density and structure, unspecified site; Translations: [Osteopenia, unspecified location] Onset: 08-30-2023 Episodic Other circulatory disease (20 sources) Disorder of carotid artery; Translations: [Disorder of arteries and arterioles, unspecified] Onset: 03-27-2017 Resolved: 12-09-2019 12-09-2019 Chronic Other connective tissue disease (20 sources) History of polymyalgia rheumatica; Translations: [Personal history of other diseases of the musculoskeletal system and connective tissue] Onset: 03-21-2011 06-17-2020 Episodic Other connective tissue disease (1 source) Personal history of other diseases of the musculoskeletal system and connective tissue; Translations: [History of polymyalgia rheumatica] Onset: 06-17-2020 Episodic Other connective tissue disease (1 source) Myalgia, unspecified site; Translations: [Myalgia] Onset: 04-11-2024 Episodic Other hematologic conditions (20 sources) Secondary polycythemia; Translations: [Secondary polycythemia] Onset: 03-14-2012 03-06-2015 Episodic Other hematologic conditions (1 source) Secondary polycythemia; Translations: [Polycythemia, secondary] Onset: 02-28-2023 Episodic Other infections; including parasitic (20 sources) Personal history of other infectious and parasitic diseases; Translations: [History of 2019 novel coronavirus disease (COVID-19)] Onset: 07-22-2020 07-22-2020 Episodic Other lower respiratory disease (1 source) Other nonspecific abnormal finding of lung field; Translations: [Lung nodules] Onset: 11-07-2023 Episodic Other non-traumatic joint disorders (20 sources) Pain in right shoulder; Translations: [Pain in joint, shoulder region] Onset: 06-29-2018 Resolved: 07-10-2020 07-10-2020 Episodic Other screening for suspected conditions (not mental disorders or infectious disease) (2 sources) Encounter for screening mammogram for malignant neoplasm of breast; Translations: [Encounter for screening mammogram for malignant neoplasm of breast] Onset: 10-03-2023 Episodic Other skin disorders (20 sources) Nail deformity; Translations: [Other nail disorders] Onset: 02-23-2022 Episodic Residual codes; unclassified (20 sources) Active advance directive (copy within chart) ; Translations: [Other specified health status] Onset: 02-23-2022 Episodic Residual codes; unclassified (20 sources) Active living will ; Translations: [Other specified health status] Onset: 01-08-2023 01-08-2023 Episodic Residual codes; unclassified (20 sources) Memory impairment; Translations: [Other amnesia] Onset: 02-29-2024 02-29-2024 Episodic Residual codes; unclassified (1 source) Other amnesia; Translations: [Memory change] Onset: 11-21-2023 Episodic Screening and history of mental health and substance abuse codes (20 sources) Ex-smoker; Translations: [Personal history of nicotine dependence] Onset: 07-07-2006 11-08-2021 Episodic Spondylosis; intervertebral disc disorders; other back problems (20 sources) Chronic low back pain; Translations: [Lumbago with sciatica, left side] Onset: 06-18-2018 Resolved: 07-10-2020 12-04-2018 Episodic Viral infection (20 sources) Disease caused by 2019-nCoV; Translations: [COVID-19] Onset: 07-21-2021 07-21-2021 Episodic Results Test Name Value Interpretation Reference Range Facility CNOVon 08-27-2024 CNOV Normal [facility] CNPNon 08-27-2024 CNPN Normal [facility] CNPNon 08-26-2024 CNPN Normal [facility] Bacteria Ur Culton 4 Bacteria identified Cx Nom (U) Abnormal [facility] Comment on above: Performed By: #### 6 30-4 ####[facility] [id number] [place] [address] [place] CNOVon 08-21-2024 CNOV Normal [facility] CNPNon 08-20-2024 CNPN Normal [facility] CNPNon 08-15-2024 CNPN Normal [facility] Bacteria Ur Culton 4 Bacteria identified Cx Nom (U) Abnormal [facility] Comment on above: Performed By: #### 6 30-4 ####[facility] [id number] [place] [address] [place] Basic metabolic 2000 panelon 08-13-2024 Anion gap [Moles/Vol] 13 mmol/L Normal 8-15 [facility] Comment on above: Order Comment: Speci men Type: BLOOD SPECIMENOrdering Facility: [facility] Address: [address] [place] [address] Performed By: #### 3 024-7, 75852-5, 3016-3 ####[facility] [id number] [place] [address] [place] Calcium [Mass/Vol] 10.0 mg/dL Normal 8.5-10.2 [facility] Comment on above: Order Comment: Speci men Type: BLOOD SPECIMENOrdering Facility: [facility] Address: [address] [place] [address] Performed By: #### 3 024-7, 06518-2, 6-3 ####[facility] [id number] [place] [address] [place] Chloride [Moles/Vol] 104 mmol/L Normal 98-107 [facility] Comment on above: Order Comment: Speci men Type: BLOOD SPECIMENOrdering Facility: [facility] Address: [address] [place] [address] Performed By: #### 3 024-7, 14833-4, 3015-3 ####[facility] [id number] [place] [address] [place] CO2 [Moles/Vol] 24 mmol/L Normal 22-30 [facility] Comment on above: Order Comment: Speci men Type: BLOOD SPECIMENOrdering Facility: [facility] Address: [address] [place] [address] Performed By: #### 3 024-7, 74393-8, 3015-3 ####[facility] [id number] [place] [address] [place] Creatinine [Mass/Vol] 0.79 mg/dL Normal 0.58-0.96 [facility] Comment on above: Order Comment: Speci men Type: BLOOD SPECIMENOrdering Facility: [facility] Address: [address] [place] [address] Performed By: #### 3 024-7, 03477-5, 3015-3 ####[facility] [id number] [place] [address] [place] Creatinine and Glomerular filtration rate.predicted panel (S/P/Bld) 76 mL/min/1.73m??? Normal >=60 [facility] Comment on above: Order Comment: Aparna ayala Type: BLOOD SPECIMENOrdering Facility: [facility] Address: [address] [place] [address] Result Comment: Mary mated Glomerular Filtration Rate (eGFR) is calculated using the 2020 CKD-EPI creatinine equation. This equation utilizes serum creatinine, sex, and age as parameters. The creatinine assay has traceable calibration to isotope dilution-mass spectrometry. Refer to KDIGO guidelines for clinical interpretation. In patients with unstable renal function, e.g. those with acute kidney injury, the eGFR may not accurately reflect actual GFR. Performed By: #### 3 024-7, 89814-0, 3015-3 ####[facility] [id number] [place] [address] [place] Glucose [Mass/Vol] 105 mg/dL High 74-99 [facility] Comment on above: Order Comment: Aparna ayala Type: BLOOD SPECIMENOrdering Facility: [facility] Address: [address] [place] [address] Result Comment: The [place] [employer] (ADA) provides guidance for cutoff values for fasting glucose and random glucose. The ADA defines fasting as no caloric intake for at least 8 hours. Fasting plasma glucose results between 100 to 125 mg/dL indicate increased risk for diabetes (prediabetes).Fasting plasma glucose results greater than or equal to 126 mg/dL meet the criteria for diagnosis of diabetes. In the absence of unequivocal hyperglycemia, results should be confirmed by repeat testing. In a patient with classic symptoms of hyperglycemia or hyperglycemic crisis, random plasma glucose results greater than or equal to 200 mg/dL meet the criteria for diagnosis of diabetes.Reference: Standards of Medical Care in Diabetes 2016, [place] [employer]. Diabetes Care. 2016.39(Suppl 1). Performed By: #### 3 024-7, 94665-0, 3015-3 ####[facility] [id number] [place] [address] [place] Potassium [Moles/Vol] 4.3 mmol/L Normal 3.7-5.1 [facility] Comment on above: Order Comment: Speci men Type: BLOOD SPECIMENOrdering Facility: [facility] Address: [address] [place] [address] Performed By: #### 3 024-7, 06030-1, 3 ####[facility] [id number] [place] [address] [place] Sodium [Moles/Vol] 141 mmol/L Normal 136-144 [facility] Comment on above: Order Comment: Speci men Type: BLOOD SPECIMENOrdering Facility: [facility] Address: [address] [place] [address] Performed By: #### 3 024-7, 94071-8, 3 ####[facility] [id number] [place] [address] [place] Urea nitrogen [Mass/Vol] 14 mg/dL Normal 7-21 [facility] Comment on above: Order Comment: Speci men Type: BLOOD SPECIMENOrdering Facility: [facility] Address: [address] [place] [address] Performed By: #### 3 024-7, 07821-8, 3 ####[facility] [id number] [place] [address] [place] CNOVon 08-13-2024 CNOV Normal [facility] CNPNon 08-13-2024 CNPN Normal [facility] T4 Free SerPl-mCncon 024 Free T4 [Mass/Vol] 0.8 ng/dL Low 0.9-1.7 [facility] Comment on above: Order Comment: Speci men Type: BLOOD SPECIMENOrdering Facility: [facility] Address: [address] [place] [address] Performed By: #### 3 024-7, 97584-8, 3 ####[facility] [id number] [place] [address] [place] TSH SerPl-aCncon 08-13-2024 TSH Qn 1.020 m[IU]/L Normal 0.270-4.200 [facility] Comment on above: Order Comment: Speci men Type: BLOOD SPECIMENOrdering Facility: [facility] Address: [address] [place] [address] Performed By: #### 3 024-7, 58903-3, 3016-3 ####[facility] [id number] [place] [address] [place] Urinalysis complete panel (U )on 08-13-2024 BACTERIA UL >9821 High Negative [facility] Comment on above: Order Comment: Speci men Type: URINE SPECIMENOrdering Facility: [facility] Address: [address] [place] [address] Performed By: #### 2 4356-8 ####[facility] [id number] [place] [address] [place] Bilirubin Ql (U) Negative Normal Negative [facility] Comment on above: Order Comment: Speci men Type: URINE SPECIMENOrdering Facility: [facility] Address: [address] [place] [address] Performed By: #### 2 4356-8 ####[facility] [id number] [place] [address] [place] Clarity (Unsp spec) Cloudy Abnormal Clear [facility] Comment on above: Order Comment: Speci men Type: URINE SPECIMENOrdering Facility: [facility] Address: [address] [place] [address] Performed By: #### 2 4356-8 ####[facility] [id number] [place] [address] [place] Color (U) Yellow Normal Yellow [facility] Comment on above: Order Comment: Speci men Type: URINE SPECIMENOrdering Facility: [facility] Address: [address] [place] [address] Performed By: #### 2 4356-8 ####[facility] [id number] [place] [address] [place] Epithelial cells LM.HPF (Urine sed) [#/Area] None Seen Normal [facility] Comment on above: Order Comment: Speci men Type: URINE SPECIMENOrdering Facility: [facility] Address: [address] [place] [address] Performed By: #### 2 4356-8 ####[facility] [id number] [place] [address] [place] Glucose Test strip (U) [Mass/Vol] Negative Normal Negative [facility] Comment on above: Order Comment: Speci men Type: URINE SPECIMENOrdering Facility: [facility] Address: [address] [place] [address] Performed By: #### 2 4356-8 ####[facility] [id number] [place] [address] [place] Hemoglobin Ql (U) Negative Normal Negative [facility] Comment on above: Order Comment: Speci men Type: URINE SPECIMENOrdering Facility: [facility] Address: [address] [place] [address] Performed By: #### 2 4356-8 ####[facility] [id number] [place] [address] [place] Hyaline casts (Urine sed) [#/Area] 0 /[LPF] Normal 0 /LPF [facility] Comment on above: Order Comment: Speci men Type: URINE SPECIMENOrdering Facility: [facility] Address: [address] [place] [address] Performed By: #### 2 4356-8 ####[facility] [id number] [place] [address] [place] Ketones Ql (U) Negative Normal Negative [facility] Comment on above: Order Comment: Speci men Type: URINE SPECIMENOrdering Facility: [facility] Address: [address] [place] [address] Performed By: #### 2 4356-8 ####[facility] [id number] [place] [address] [place] Leukocyte esterase Test strip Ql (U) 2+ Abnormal Negative [facility] Comment on above: Order Comment: Speci men Type: URINE SPECIMENOrdering Facility: [facility] Address: [address] [place] [address] Performed By: #### 2 4356-8 ####[facility] [id number] [place] [address] [place] Nitrite Ql (U) Positive Abnormal Negative [facility] Comment on above: Order Comment: Speci men Type: URINE SPECIMENOrdering Facility: [facility] Address: [address] [place] [address] Performed By: #### 2 4356-8 ####[facility] [id number] [place] [address] [place] pH (U) 6.5 [pH] Normal <8.5 [facility] Comment on above: Order Comment: Speci men Type: URINE SPECIMENOrdering Facility: [facility] Address: [address] [place] [address] Performed By: #### 2 4356-8 ####[facility] [id number] [place] [address] [place] Protein (U) [Mass/Vol] Trace Abnormal Negative [facility] Comment on above: Order Comment: Speci men Type: URINE SPECIMENOrdering Facility: [facility] Address: [address] [place] [address] Performed By: #### 2 4356-8 ####[facility] [id number] [place] [address] [place] RBC LM.HPF (Urine sed) [#/Area] 3-5 /HPF Abnormal 0-2 /HPF [facility] Comment on above: Order Comment: Speci men Type: URINE SPECIMENOrdering Facility: [facility] Address: [address] [place] [address] Performed By: #### 2 4356-8 ####[facility]IA [id number] [place] [address] [place] Specific gravity (U) [Rel density] 1.017 Normal 1.005-1.030 [facility] Comment on above: Order Comment: Speci men Type: URINE SPECIMENOrdering Facility: [facility] Address: [address] [place] [address] Performed By: #### 2 4356-8 ####[facility]IA [id number] [place] [address] [place] Urobilinogen Ql (U) 1.0 EU/dL Normal 0.2-1.0 EU/dL [facility] Comment on above: Order Comment: Speci men Type: URINE SPECIMENOrdering Facility: [facility] Address: [address] [place] [address] Performed By: #### 2 4356-8 ####[facility]IA [id number] [place] [address] [place] WBC LM.HPF (Urine sed) [#/Area] /[HPF] Abnormal 0-5 /HPF [facility] Comment on above: Order Comment: Speci men Type: URINE SPECIMENOrdering Facility: [facility] Address: [address] [place] [address] Performed By: #### 2 4356-8 ####[facility] [id number] [place] [address] [place] Bacteria identified Cx Nom ( U)Ordered By: Tanesha Lieberman on 08-08-2024 Interpretation and review of laboratory results Abnormal [facility] This test was developed and its performance characteristics determined by the [facility] [place] ([facility]). It has not been cleared or approved by the FDA. -[facility] is regulated under CLIA as qualified to perform high-complexity testing. This test is used for clinical purposes. It should not be regarded as investigational or for research. [facility] CNPNon 08-08-2024 CNPN Normal [facility] URINE CULTUREOrdered By: Tanesha Lieberman on 08-08-2024 Bacteria identified Cx Nom (U) >=100,000 CFU/ml Escherichia coli Abnormal [facility] ECG COMPLETEon 08-07-2024 Atrial Rate 69 BPM [facility] Calculated P [place] 55 degrees [facility] Calculated R [place] 27 degrees [facility] Calculated T [place] 33 degrees [facility] P-R Interval 118 ms [facility] QRS Duration 70 ms [facility] QT Interval 412 ms [facility] QTC Calculation (Bazett) 441 ms [facility] Ventricular Rate 69 BPM [facility] NORMAL SINUS RHYTHM NORMAL ECG Confirmed by MD CRANDALL QARAB ([id number]) on 08/07/2024 11:53:41 AM [facility] NAME : JOYCE CALVERT PID : [id number] : 1945 Gender : Female Race : ORD : [id number] Procedure Date : Aug 06 2024 10:02:35 Edit Date : Aug 07 2024 11:58:58 Diagnosis: NORMAL SINUS RHYTHM NORMAL ECG Confirmed by MD CRANDALL QARAB ([id number]) on 08/07/2024 11:53:41 AM Test Reason : Z01.818 Pre-op exam Location : 185 : [facility] Overread By : MD CRANDALL QARAB Edited By : MD CRANDALL QARAB Referred By : BRIANNA PATEL Acquired by : Josh SALAZAR LPN, HEART AND VASCULAR [facility] Bacteria Ur Culton Bacteria identified Cx Nom (U) Abnormal [facility] Comment on above: Performed By: #### 6 30-4 ####[facility] [id number] [place] [address] [place] CBC W Auto Differential pane l (Bld)on 08-06-2024 Basophils (Bld) [#/Vol] 0.04 10*3/uL [facility] Basophils/100 WBC (Bld) 0.4 % [facility] Differential cell count method Nom (Bld) Auto [facility] Eosinophils (Bld) [#/Vol] 0.13 10*3/uL [facility] Eosinophils/100 WBC (Bld) 1.4 % [facility] Erythrocyte distribution width (RBC) [Ratio] 13.5 % 11.5 - 15.0 % [facility] Hematocrit (Bld) [Volume fraction] 48.0 % High 36.0 - 46.0 % [facility] Hemoglobin (Bld) [Mass/Vol] 15.9 g/dL High 11.5 - 15.5 g/dL [facility] Immature granulocytes (Bld) [#/Vol] 0.03 10*3/uL [facility] Immature granulocytes/100 WBC (Bld) 0.3 % [facility] Interpretation and review of laboratory results Abnormal [facility] Lymphocytes (Bld) [#/Vol] 1.91 10*3/uL [facility] Lymphocytes/100 WBC (Bld) 20.7 % [facility] MCH (RBC) [Entitic mass] 31.7 pg 26.0 - 34.0 pg [facility] MCHC (RBC) [Mass/Vol] 33.1 g/dL 30.5 - 36.0 g/dL [facility] MCV (RBC) [Entitic vol] 95.8 fL 80.0 - 100.0 fL [facility] Monocytes (Bld) [#/Vol] 0.69 10*3/uL [facility] Monocytes/100 WBC (Bld) 7.5 % [facility] Neutrophils (Bld) [#/Vol] 6.42 10*3/uL [facility] Neutrophils/100 WBC (Bld) 69.7 % [facility] Nucleated RBC (Bld) [#/Vol] [facility] Nucleated RBC/100 WBC (Bld) [Ratio] 0.0 % /100 WBC [facility] Platelet mean volume (Bld) [Entitic vol] 11.6 fL 9.0 - 12.7 fL [facility] Platelets (Bld) [#/Vol] 149 10*3/uL Low [facility] RBC (Bld) [#/Vol] 5.01 10*6/uL 3.90 - 5.2 0 m/uL [facility] WBC (Bld) [#/Vol] 9.22 10*3/uL [facility] Basophils (Bld) [#/Vol] 0.04 10*3/uL Normal <0.11 [facility] Comment on above: Order Comment: Speci men Type: BLOOD SPECIMENOrdering Facility: [facility] Address: [address] [place] [address] Performed By: #### 5 7021-8 ####[facility] [id number] [place] [address] [place] Basophils/100 WBC (Bld) 0.4 % Normal [facility] Comment on above: Order Comment: Speci men Type: BLOOD SPECIMENOrdering Facility: [facility] Address: [address] [place] [address] Performed By: #### 5 7021-8 ####[facility]CL[facility] [id number] [place] [address] [place] Differential cell count method Nom (Bld) Auto Normal [facility] Comment on above: Order Comment: Speci men Type: BLOOD SPECIMENOrdering Facility: [facility] Address: [address] [place] [address] Performed By: #### 5 7021-8 ####[facility]CL[facility] [id number] [place] [address] [place] Eosinophils (Bld) [#/Vol] 0.13 10*3/uL Normal <0.46 [facility] Comment on above: Order Comment: Speci men Type: BLOOD SPECIMENOrdering Facility: [facility] Address: [address] [place] [address] Performed By: #### 5 7021-8 ####[facility]CL[facility] [id number] [place] [address] [place] Eosinophils/100 WBC (Bld) 1.4 % Normal [facility] Comment on above: Order Comment: Speci men Type: BLOOD SPECIMENOrdering Facility: [facility] Address: [address] [place] [address] Performed By: #### 5 7021-8 ####[facility]IA [id number] [place] [address] [place] Erythrocyte distribution width (RBC) [Ratio] 13.5 % Normal 11.5-15.0 [facility] Comment on above: Order Comment: Speci men Type: BLOOD SPECIMENOrdering Facility: [facility] Address: [address] [place] [address] Performed By: #### 5 7021-8 ####[facility] [id number] [place] [address] [place] Hematocrit (Bld) [Volume fraction] 48.0 % High 36.0-46.0 [facility] Comment on above: Order Comment: Speci men Type: BLOOD SPECIMENOrdering Facility: [facility] Address: [address] [place] [address] Performed By: #### 5 7021-8 ####[facility] [id number] [place] [address] [place] Hemoglobin (Bld) [Mass/Vol] 15.9 g/dL High 11.5-15.5 [facility] Comment on above: Order Comment: Speci men Type: BLOOD SPECIMENOrdering Facility: [facility] Address: [address] [place] [address] Performed By: #### 5 7021-8 ####[facility]IA [id number] [place] [address] [place] Immature granulocytes (Bld) [#/Vol] 0.03 10*3/uL Normal <0.10 [facility] Comment on above: Order Comment: Speci men Type: BLOOD SPECIMENOrdering Facility: [facility] Address: [address] [place] [address] Performed By: #### 5 7021-8 ####[facility] [id number] [place] [address] [place] Immature granulocytes/100 WBC (Bld) 0.3 % Normal [facility] Comment on above: Order Comment: Speci men Type: BLOOD SPECIMENOrdering Facility: [facility] Address: [address] [place] [address] Performed By: #### 5 7021-8 ####[facility]IA [id number] [place] [address] [place] Lymphocytes (Bld) [#/Vol] 1.91 10*3/uL Normal 1.00-4.00 [facility] Comment on above: Order Comment: Speci men Type: BLOOD SPECIMENOrdering Facility: [facility] Address: [address] [place] [address] Performed By: #### 5 7021-8 ####[facility] [id number] [place] [address] [place] Lymphocytes/100 WBC (Bld) 20.7 % Normal [facility] Comment on above: Order Comment: Speci men Type: BLOOD SPECIMENOrdering Facility: [facility] Address: [address] [place] [address] Performed By: #### 5 7021-8 ####[facility] [id number] [place] [address] [place] MCH (RBC) [Entitic mass] 31.7 pg Normal 26.0-34.0 [facility] Comment on above: Order Comment: Speci men Type: BLOOD SPECIMENOrdering Facility: [facility] Address: [address] [place] [address] Performed By: #### 5 7021-8 ####[facility] [id number] [place] [address] [place] MCHC (RBC) [Mass/Vol] 33.1 g/dL Normal 30.5-36.0 [facility] Comment on above: Order Comment: Speci men Type: BLOOD SPECIMENOrdering Facility: [facility] Address: [address] [place] [address] Performed By: #### 5 7021-8 ####[facility] LABCLIA [id number] [place] [address] [place] MCV (RBC) [Entitic vol] 95.8 fL Normal 80.0-100.0 [facility] Comment on above: Order Comment: Speci men Type: BLOOD SPECIMENOrdering Facility: [facility] Address: [address] [place] [address] Performed By: #### 5 7021-8 ####[facility] LABIA [id number] [place] [address] [place] Monocytes (Bld) [#/Vol] 0.69 10*3/uL Normal <0.87 [facility] Comment on above: Order Comment: Speci men Type: BLOOD SPECIMENOrdering Facility: [facility] Address: [address] [place] [address] Performed By: #### 5 7021-8 ####[facility] LABIA [id number] [place] [address] [place] Monocytes/100 WBC (Bld) 7.5 % Normal [facility] Comment on above: Order Comment: Speci men Type: BLOOD SPECIMENOrdering Facility: [facility] Address: [address] [place] [address] Performed By: #### 5 7021-8 ####[facility] LABIA [id number] [place] [address] [place] Neutrophils (Bld) [#/Vol] 6.42 10*3/uL Normal 1.45-7.50 [facility] Comment on above: Order Comment: Speci men Type: BLOOD SPECIMENOrdering Facility: [facility] Address: [address] [place], [place] [address] Performed By: #### 5 7021-8 ####[facility] LABCLIA [id number] [place] [address] [place] Neutrophils/100 WBC (Bld) 69.7 % Normal [facility] Comment on above: Order Comment: Speci men Type: BLOOD SPECIMENOrdering Facility: [facility] Address: [address] [place] [address] Performed By: #### 5 7021-8 ####[facility] LABCLIA [id number] [place] [address] [place] Nucleated RBC (Bld) [#/Vol] 10*3/uL Normal <0.01 [facility] Comment on above: Order Comment: Speci men Type: BLOOD SPECIMENOrdering Facility: [facility] Address: [address] [place] [address] Performed By: #### 5 7021-8 ####[facility] LABIA [id number] [place] [address] [place] Nucleated RBC/100 WBC (Bld) [Ratio] 0.0 /100 WBC Normal [facility] Comment on above: Order Comment: Speci men Type: BLOOD SPECIMENOrdering Facility: [facility] Address: [address] [place] [address] Performed By: #### 5 7021-8 ####[facility] LABIA [id number] [place] [address] [place] Platelet mean volume (Bld) [Entitic vol] 11.6 fL Normal 9.0-12.7 [facility] Comment on above: Order Comment: Speci men Type: BLOOD SPECIMENOrdering Facility: [facility] Address: [address] [place] [address] Performed By: #### 5 7021-8 ####[facility] LABIA [id number] [id number] [address] [place] Platelets (Bld) [#/Vol] 149 10*3/uL Low 150-400 [facility] Comment on above: Order Comment: Speci men Type: BLOOD SPECIMENOrdering Facility: [facility] Address: [address] [place] [address] Performed By: #### 5 7021-8 ####[facility] LABCLIA [id number] [place] [address] [place] RBC (Bld) [#/Vol] 5.01 10*6/uL Normal 3.90-5.20 [facility] Comment on above: Order Comment: Speci men Type: BLOOD SPECIMENOrdering Facility: [facility] Address: [address] [place] [address] Performed By: #### 5 7021-8 ####[facility] LABCLIA [id number] [address] [place] WBC (Bld) [#/Vol] 9.22 10*3/uL Normal 3.70-11.00 [facility] Comment on above: Order Comment: Speci men Type: BLOOD SPECIMENOrdering Facility: [facility] Address: [address] [place] [address] Performed By: #### 5 7021-8 ####[facility] LABCLIA [id number] [place] [address] [place] CNOVon 08-06-2024 CNOV Normal [facility] Comprehensive metabolic 2000 panelon 08-06-2024 Albumin [Mass/Vol] 3.9 g/dL 3.9 - 4.9 g/dL [facility] ALP [Catalytic activity/Vol] 91 U/L 34 - 123 U/L [facility] ALT [Catalytic activity/Vol] 17 U/L 7 - 38 U/L [facility] Anion gap [Moles/Vol] 14 mmol/L 8 - 15 mmol/L [facility] AST [Catalytic activity/Vol] 35 U/L 13 - 35 U/L [facility] Bilirubin [Mass/Vol] 0.5 mg/dL 0.2 - 1 .3 mg/dL [facility] Calcium [Mass/Vol] 10.2 mg/dL 8.5 - 10. 2 mg/dL [facility] Chloride [Moles/Vol] 105 mmol/L 98 - 10 7 mmol/L [facility] CO2 [Moles/Vol] 22 mmol/L 22 - 30 mmol/L [facility] Creatinine [Mass/Vol] 0.86 mg/dL 0.58 - 0.96 mg/dL [facility] GFR/1.73 sq M.predicted among non-blacks MDRD (S/P/Bld) [Vol rate/Area] 69 mL/min/{1.73_m2} - PINF [facility] Comment on above: Estimated Glomerular Filtration Rate (eGFR) is calculated using the 2020 CKD-EPI creatinine equation. This equation utilizes serum creatinine, sex, and age as parameters. The creatinine assay has traceable calibration to isotope dilution-mass spectrometry. Refer to KDIGO guidelines for clinical interpretation. In patients with unstable renal function, e.g. those with acute kidney injury, the eGFR may not accurately reflect actual GFR. Glucose [Mass/Vol] 117 mg/dL High 74 - 99 mg/dL [facility] Comment on above: The [place] Diabete s Association (ADA) provides guidance for cutoff values for fasting glucose and random glucose. The ADA defines fasting as no caloric intake for at least 8 hours. Fasting plasma glucose results between 100 to 125 mg/dL indicate increased risk for diabetes (prediabetes). Fasting plasma glucose results greater than or equal to 126 mg/dL meet the criteria for diagnosis of diabetes. In the absence of unequivocal hyperglycemia, results should be confirmed by repeat testing. In a patient with classic symptoms of hyperglycemia or hyperglycemic crisis, random plasma glucose results greater than or equal to 200 mg/dL meet the criteria for diagnosis of diabetes. Reference: Standards of Medical Care in Diabetes 2016, [place] Diabetes Association. Diabetes Care. 2016.39(Suppl 1). Interpretation and review of laboratory results Abnormal [facility] Potassium [Moles/Vol] 4.4 mmol/L 3.7 - 5.1 mmol/L [facility] Protein [Mass/Vol] 6.8 g/dL 6.3 - 8.0 g/dL [facility] Sodium [Moles/Vol] 141 mmol/L 136 - 144 mmol/L [facility] Urea nitrogen [Mass/Vol] 23 mg/dL High 7 - 21 mg/dL [facility] Albumin [Mass/Vol] 3.9 g/dL Normal 3.9-4.9 [facility] Comment on above: Order Comment: Speci men Type: BLOOD SPECIMENOrdering Facility: [facility] Address: [address] [place] [address] Performed By: #### 2 4323-8 ####[facility] LABCLIA [id number] [place] [address] [place] ALP [Catalytic activity/Vol] 91 U/L Normal 34-123 [facility] Comment on above: Order Comment: Speci men Type: BLOOD SPECIMENOrdering Facility: [facility] Address: [address] [place] [address] Performed By: #### 2 4323-8 ####[facility] LABCLIA [id number] [place] [address] [place] ALT [Catalytic activity/Vol] 17 U/L Normal 7-38 [facility] Comment on above: Order Comment: Speci men Type: BLOOD SPECIMENOrdering Facility: [facility] Address: [address] [place] [address] Performed By: #### 2 4323-8 ####[facility] LABCLIA [id number] [place] [address] [place] Anion gap [Moles/Vol] 14 mmol/L Normal 8-15 [facility] Comment on above: Order Comment: Speci men Type: BLOOD SPECIMENOrdering Facility: [facility] Address: [address] [place] [address] Performed By: #### 2 4323-8 ####[facility] LABCLIA [id number] [place] [address] [place] AST [Catalytic activity/Vol] 35 U/L Normal 13-35 [facility] Comment on above: Order Comment: Speci men Type: BLOOD SPECIMENOrdering Facility: [facility] Address: [address] [place] [id number] Performed By: #### 2 4323-8 ####[facility] LABCLIA [id number] [place] [address] [place] Bilirubin [Mass/Vol] 0.5 mg/dL Normal 0.2-1.3 [facility] Comment on above: Order Comment: Speci men Type: BLOOD SPECIMENOrdering Facility: [facility] Address: [address] [place] [address] Performed By: #### 2 4323-8 ####[facility] LABCLIA [id number] [place] [address] [place] Calcium [Mass/Vol] 10.2 mg/dL Normal 8.5-10.2 [facility] Comment on above: Order Comment: Speci men Type: BLOOD SPECIMENOrdering Facility: [facility] Address: [address] [place] [address] Performed By: #### 2 4323-8 ####[facility] LABCLIA [id number] [place] [address] [place] Chloride [Moles/Vol] 105 mmol/L Normal 98-107 [facility] Comment on above: Order Comment: Speci men Type: BLOOD SPECIMENOrdering Facility: [facility] Address: [address] [place] [address] Performed By: #### 2 4323-8 ####[facility] LABCLIA [id number] [place] [id number] [place] CO2 [Moles/Vol] 22 mmol/L Normal 22-30 [facility] Comment on above: Order Comment: Speci men Type: BLOOD SPECIMENOrdering Facility: [facility] Address: [address] [place], [place] [address] Performed By: #### 2 4323-8 ####[facility] LABCLIA [id number] [place] [address] [place] Creatinine [Mass/Vol] 0.86 mg/dL Normal 0.58-0.96 [facility] Comment on above: Order Comment: Aparna ayala Type: BLOOD SPECIMENOrdering Facility: [facility] Address: [address] [place] [address] Performed By: #### 2 4323-8 ####[facility] LABCLIA [id number] [address] [facility] Creatinine and Glomerular filtration rate.predicted panel (S/P/Bld) 69 mL/min/1.73m??? Normal >=60 [facility] Comment on above: Order Comment: Aparna ayala Type: BLOOD SPECIMENOrdering Facility: [facility] Address: [address] [place] [address] Result Comment: Mary mated Glomerular Filtration Rate (eGFR) is calculated using the 2020 CKD-EPI creatinine equation. This equation utilizes serum creatinine, sex, and age as parameters. The creatinine assay has traceable calibration to isotope dilution-mass spectrometry. Refer to KDIGO guidelines for clinical interpretation. In patients with unstable renal function, e.g. those with acute kidney injury, the eGFR may not accurately reflect actual GFR. Performed By: #### 2 4323-8 ####[facility] LABCLIA [id number] [place] [address] [place] Glucose [Mass/Vol] 117 mg/dL High 74-99 [facility] Comment on above: Order Comment: Aparna ayala Type: BLOOD SPECIMENOrdering Facility: [facility] Address: [address] [place] [address] Result Comment: The [place] Diabetes Association (ADA) provides guidance for cutoff values for fasting glucose and random glucose. The ADA defines fasting as no caloric intake for at least 8 hours. Fasting plasma glucose results between 100 to 125 mg/dL indicate increased risk for diabetes (prediabetes).Fasting plasma glucose results greater than or equal to 126 mg/dL meet the criteria for diagnosis of diabetes. In the absence of unequivocal hyperglycemia, results should be confirmed by repeat testing. In a patient with classic symptoms of hyperglycemia or hyperglycemic crisis, random plasma glucose results greater than or equal to 200 mg/dL meet the criteria for diagnosis of diabetes.Reference: Standards of Medical Care in Diabetes 2016, [place] Diabetes [employer]. Diabetes Care. 2016.39(Suppl 1). Performed By: #### 2 4323-8 ####[facility] LABCLIA [id number] [place] [address] [place] Potassium [Moles/Vol] 4.4 mmol/L Normal 3.7-5.1 [facility] Comment on above: Order Comment: Speci men Type: BLOOD SPECIMENOrdering Facility: [facility] Address: [address] [place] [address] Performed By: #### 2 4323-8 ####[facility] LABCLIA [id number] [place] [address] [place] Protein [Mass/Vol] 6.8 g/dL Normal 6.3-8.0 [facility] Comment on above: Order Comment: Speci men Type: BLOOD SPECIMENOrdering Facility: [facility] Address: [address] [place] [address] Performed By: #### 2 4323-8 ####[facility] LABCLIA [id number] [place] [address] [place] Sodium [Moles/Vol] 141 mmol/L Normal 136-144 [facility] Comment on above: Order Comment: Speci men Type: BLOOD SPECIMENOrdering Facility: [facility] Address: [address] [place] [address] Performed By: #### 2 4323-8 ####[facility] LABCLIA [id number] [place] [id number] [place] Urea nitrogen [Mass/Vol] 23 mg/dL High 7-21 [facility] Comment on above: Order Comment: Speci men Type: BLOOD SPECIMENOrdering Facility: [facility] Address: [address] [place] [address] Performed By: #### 2 4323-8 ####[facility] LABCLIA [id number] [place] [address] [place] ECG COMPLETEon 08-06-2024 ECG COMPLETE Normal [facility] HbA1c (Bld)on 08-06-2024 Average glucose Estimated from glycated hemoglobin (Bld) [Mass/Vol] 108 mg/dL [facility] Comment on above: eAG: (Estimated aver age glucose) is a calculated value from HgbA1c and is canvas products sales representative of the average blood glucose level in the last 2-3 month period. HbA1c (Bld) [Mass fraction] 5.4 % 4.3 - 5.6 % [facility] Comment on above: [place] Diabetes As sociation guidelines indicate that patients with HgbA1c in the range 5.7-6.4% are at increased risk for development of diabetes, and intervention by lifestyle modification may be beneficial. HgbA1c greater or equal to 6.5% is considered diagnostic of diabetes. [facility] Average glucose Estimated from glycated hemoglobin (Bld) [Mass/Vol] 108 mg/dL Normal [facility] Comment on above: Order Comment: Specadarsh men Type: BLOOD SPECIMENOrdering Facility: [facility] Address: [address] [place] [address] Result Comment: eAG: (Estimated average glucose) is a calculated value from HgbA1c and is canvas products sales representative of the average blood glucose level in the last 2-3 month period. Performed By: #### 5 5454-3 ####[facility] [id number] [place] [address] [place] [address] [facility] HbA1c (Bld) [Mass fraction] 5.4 % Normal 4.3-5.6 [facility] Comment on above: Order Comment: Aparna ayala Type: BLOOD SPECIMENOrdering Facility: [facility] Address: [address] [place] [address] Result Comment: [place] Diabetes Association guidelines indicate that patients with HgbA1c in the range 5.7-6.4% are at increased risk for development of diabetes, and intervention by lifestyle modification may be beneficial. HgbA1c greater or equal to 6.5% is considered diagnostic of diabetes. Performed By: #### 5 5454-3 ####[facility] LABCLIA [id number] [place] [place] [address] [place] Urinalysis complete panel (U )on 08-06-2024 Bacteria uL uL High Negative uL [facility] Bilirubin Ql (U) Negative Negative [facility] Clarity (Unsp spec) Cloudy Abnormal Clear [facility] Color (U) Dark Yellow Abnormal Yellow [facility] Epithelial cells LM.HPF (Urine sed) [#/Area] Moderate /HPF [facility] Glucose Test strip (U) [Mass/Vol] Negative Negative [facility] Hemoglobin Ql (U) Trace Abnormal Negative [facility] Hyaline casts (Urine sed) [#/Area] 4-10 /LPF Abnormal 0 /LPF [facility] Interpretation and review of laboratory results Abnormal [facility] Ketones Ql (U) Trace Abnormal Negative [facility] Leukocyte esterase Test strip Ql (U) 3+ Abnormal Negative [facility] Nitrite Ql (U) Positive Abnormal Negative [facility] pH (U) 6.0 [pH] NINF - 8.5 [facility] Protein (U) [Mass/Vol] 1+ Abnormal Negative [facility] RBC LM.HPF (Urine sed) [#/Area] 11-20 /HPF Abnormal 0-2 /HPF [facility] Specific gravity (U) [Rel density] 1.022 1.005 - 1.030 [facility] Urobilinogen Ql (U) 1.0 EU/dL 0.2-1.0 EU/dL [facility] WBC LM.HPF (Urine sed) [#/Area] /[HPF] Abnormal 0-5 /HPF [facility] Result rechecked This test was developed and its performance characteristics determined by [facility]'s [facility] Pathology and Laboratory Medicine [place] ([facility]). It has not been cleared or approved by the FDA. -[facility] is regulated under CLIA as qualified to perform high-complexity testing. This test is used for clinical purposes. It should not be regarded as investigational or for research. [facility] BACTERIA UL >9821 High Negative [facility] Comment on above: Order Comment: Speci men Type: URINE SPECIMENOrdering Facility: [facility] Address: [address] [place] [address] Performed By: #### 2 4356-8 ####[facility] LABCLIA [id number] [place] [address] [place] Bilirubin Ql (U) Negative Normal Negative [facility] Comment on above: Order Comment: Speci men Type: URINE SPECIMENOrdering Facility: [facility] Address: [address] [place] [address] Performed By: #### 2 4356-8 ####[facility] LABCLIA [id number] [place] [address] [place] Clarity (Unsp spec) Cloudy Abnormal Clear [facility] Comment on above: Order Comment: Speci men Type: URINE SPECIMENOrdering Facility: [facility] Address: [address] [place] [address] Performed By: #### 2 4356-8 ####[facility] LABIA [id number] [place] [address] [place] [address] [facility] Color (U) Dark Yellow Abnormal Yellow [facility] Comment on above: Order Comment: Speci men Type: URINE SPECIMENOrdering Facility: [facility] Address: [address] [place] [address] Performed By: #### 2 4356-8 ####[facility] LABIA [id number] [place] [address] [place] Epithelial cells LM.HPF (Urine sed) [#/Area] Moderate Normal [facility] Comment on above: Order Comment: Speci men Type: URINE SPECIMENOrdering Facility: [facility] Address: [address] [place] [address] Performed By: #### 2 4356-8 ####[facility] LABIA [id number] [place] [address] [place] Glucose Test strip (U) [Mass/Vol] Negative Normal Negative [facility] Comment on above: Order Comment: Speci men Type: URINE SPECIMENOrdering Facility: [facility] Address: [address] [place] [address] Performed By: #### 2 4356-8 ####[facility]CL[facility] [id number] [place] [address] [place] Hemoglobin Ql (U) Trace Abnormal Negative [facility] Comment on above: Order Comment: Speci men Type: URINE SPECIMENOrdering Facility: [facility] Address: [address] [place] [address] Performed By: #### 2 4356-8 ####[facility]CL[facility] [id number] [place] [address] [place] Hyaline casts (Urine sed) [#/Area] 4-10 /LPF Abnormal 0 /LPF [facility] Comment on above: Order Comment: Speci men Type: URINE SPECIMENOrdering Facility: [facility] Address: [address] [place] [address] Performed By: #### 2 4356-8 ####[facility]CL[facility] [id number] [place] [address] [place] Ketones Ql (U) Trace Abnormal Negative [facility] Comment on above: Order Comment: Speci men Type: URINE SPECIMENOrdering Facility: [facility] Address: [address] [place] [address] Performed By: #### 2 4356-8 ####[facility] LABCLIA [id number] [place] [address] [place] Leukocyte esterase Test strip Ql (U) 3+ Abnormal Negative [facility] Comment on above: Order Comment: Speci men Type: URINE SPECIMENOrdering Facility: [facility] Address: [address] [place] [address] Performed By: #### 2 4356-8 ####[facility]CL[facility] [id number] [place] [address] [place] Nitrite Ql (U) Positive Abnormal Negative [facility] Comment on above: Order Comment: Speci men Type: URINE SPECIMENOrdering Facility: [facility] Address: [address] [place] [address] Performed By: #### 2 4356-8 ####[facility]CL[facility] [id number] [place] [address] [place] pH (U) 6.0 [pH] Normal <8.5 [facility] Comment on above: Order Comment: Speci men Type: URINE SPECIMENOrdering Facility: [facility] Address: [address] [place] [address] Performed By: #### 2 4356-8 ####[facility] LABIA [id number] [place] [address] [place] Protein (U) [Mass/Vol] 1+ Abnormal Negative [facility] Comment on above: Order Comment: Speci men Type: URINE SPECIMENOrdering Facility: [facility] Address: [address] [place] [address] Performed By: #### 2 4356-8 ####[facility]CL[facility] [id number] [place] [address] [place] RBC LM.HPF (Urine sed) [#/Area] 11-20 /HPF Abnormal 0-2 /HPF [facility] Comment on above: Order Comment: Speci men Type: URINE SPECIMENOrdering Facility: [facility] Address: [address] [place] [address] Performed By: #### 2 4356-8 ####[facility] LABCLIA [id number] [place] [address] [place] Specific gravity (U) [Rel density] 1.022 Normal 1.005-1.030 [facility] Comment on above: Order Comment: Speci men Type: URINE SPECIMENOrdering Facility: [facility] Address: [address] [place] [address] Performed By: #### 2 4356-8 ####[facility] LABCL[facility] [id number] [place] [address] [place] Urobilinogen Ql (U) 1.0 EU/dL Normal 0.2-1.0 EU/dL Cl [facility] Comment on above: Order Comment: Speci men Type: URINE SPECIMENOrdering Facility: [facility] Address: [address] [place] [address] Performed By: #### 2 4356-8 ####[facility] LABIA [id number] [place] [address] [place] WBC LM.HPF (Urine sed) [#/Area] /[HPF] Abnormal 0-5 /HPF [facility] Comment on above: Order Comment: Speci men Type: URINE SPECIMENOrdering Facility: [facility] Address: [address] [place] [address] Performed By: #### 2 4356-8 ####[facility] LABIA [id number] [place] [address] [place] CNOVon 07-29-2024 CNOV Normal [facility] CNPNon 07-29-2024 CNPN Normal [facility] XR KNEE 4V AP/PA BOTH+LAT/ME R LTon 07-29-2024 XR KNEE 4V AP/PA BOTH+LAT/BECCA LT Normal [facility] XR Knee - left 4 Viewson IMPRESSION: LEFT total knee arthroplasty without complication. [employer]: MELISSA Transcribe Date/Time: Jul 29 2024 10:37A Dictated by : AYLA ACE DO This examination was interpreted and the report reviewed and electronically signed by: AYLA ACE DO on Jul 29 2024 10:38AM [facility] DIVISION OF RADIOLOGY * * *Final Report* * * DATE OF EXAM: Jul 29 2024 10:33AM WOX 5202 - XR KNEE 4V AP/PA BOTH+LAT/BECCA LT / PROCEDURE REASON: Acute pain of left knee * * * * Physician Interpretation * * * * EXAMINATION: XR KNEE 4V AP/PA BOTH+LAT/BECCA LT PATIENT/TECHNOLOGIST PROVIDED HISTORY: Left anterior knee pain x 2 months without injury. CLINICAL INFORMATION: 79 years old Female with Acute pain of left knee TECHNIQUE: XR KNEE 4V AP/PA BOTH+LAT/BECCA LT Laterality: LEFT Number of different views (projections): 4 COMPARISON: None. RESULT: Status post LEFT total knee arthroplasty with patellar resurfacing in satisfactory alignment and position. No periprosthetic lucency or fracture. DIVISION OF RADIOLOGY Provider, [facility] [place] - 07/29/2024 * * *Final Report* * * DATE OF EXAM: Jul 29 2024 10:33AM WOX 5202 - XR KNEE 4V AP/PA BOTH+LAT/BECCA LT / PROCEDURE REASON: Acute pain of left knee * * * * Physician Interpretation * * * * EXAMINATION: XR KNEE 4V AP/PA BOTH+LAT/BECCA LT PATIENT/TECHNOLOGIST PROVIDED HISTORY: Left anterior knee pain x 2 months without injury. CLINICAL INFORMATION: 79 years old Female with Acute pain of left knee TECHNIQUE: XR KNEE 4V AP/PA BOTH+LAT/BECCA LT Laterality: LEFT Number of different views (projections): 4 COMPARISON: None. RESULT: Status post LEFT total knee arthroplasty with patellar resurfacing in satisfactory alignment and position. No periprosthetic lucency or fracture. IMPRESSION IMPRESSION: LEFT total knee arthroplasty without complication. [employer]: MELISSA Transcribe Date/Time: Jul 29 2024 10:37A Dictated by : AYLA ACE DO This examination was interpreted and the report reviewed and electronically signed by: AYLA ACE DO on Jul 29 2024 10:38AM EST [facility] Radiology Study observation (narrative) [facility] XR Knee - left 4 ViewsOrdere d By: Cc Provider on 07-29-2024 [facility] CNPNon 07-22-2024 CNPN Normal [facility] [id number] 04-19-2024 [id number] Normal [facility] CNTHERAPYon 04-18-2024 CNTHERAPY Normal [facility] THERAPY NTon 04-18-2024 THERAPY NT Normal [facility] Bacteria Ur Culton Bacteria identified Cx Nom (U) Normal [facility] Comment on above: Performed By: #### 6 30-4 ####[facility] [id number] [place] [id number] [place] CNPNon 04-12-2024 CNPN Normal [facility] MJ BY IFA WITH REFLEXon Nuclear Ab Ql (S) Negative Normal Negative [facility] Comment on above: Order Comment: Speci men Type: BLOOD SPECIMENOrdering Facility: [facility] Address: [address] [place] [address] Result Comment: Anti -nuclear antibody test is used as an aid in diagnosis of systemic autoimmune diseases. Where positive and clinically warranted, follow-up using disease-specific testing is recommended. Low positive titers are not uncommon with advanced age, certain chronic infections, and malignancies among others.Test methodology: Indirect fluorescence immunoassay (IFA) using HEp-2 cells. Performed By: #### A NAIFR ####[facility] [id number] [place] [address] [place] C-REACTIVE PROTEINon 024 CRP [Mass/Vol] 0.8 mg/dL NINF - 0.9 mg/dL [facility] CNOVon 04-11-2024 CNOV Normal [facility] CRP SerPl-mCncon 04-11-2024 CRP [Mass/Vol] 0.8 mg/dL Normal <0.9 [facility] Comment on above: Order Comment: Speci men Type: BLOOD SPECIMENOrdering Facility: [facility] Address: [address] [place] [address] Performed By: #### 1 157-5, 1988-03 ####[facility] [id number] [place] [address] [place] ESR Westergren method (Bld) [Velocity]on 04-11-2024 ESR (Bld) [Velocity] 25 mm/h High [facility] Interpretation and review of laboratory results Abnormal [facility] ESR (Bld) [Velocity] 25 mm/h High 0-20 [facility] Comment on above: Order Comment: Speci men Type: BLOOD SPECIMENOrdering Facility: [facility] Address: [address] [place] [address] Performed By: #### 4 537-7 ####[facility] [id number] [place] [address] [place] No Panel Informationon 04-11 Interpretation and review of laboratory results Normal [facility] RHEUMATOID FACTORon 04-11-20 Rheumatoid factor Qn NINF [facility] Rheumatoid fact SerPl-aCncon 04-11-2024 Rheumatoid factor Qn [IU]/mL Normal <16 [facility] Comment on above: Order Comment: Speci men Type: BLOOD SPECIMENOrdering Facility: [facility] Address: [address] [place] [address] Performed By: #### 1 1572-5, 1988-03 ####[facility] [id number] [place] [address] [place] CNOVon 03-14-2024 CNOV Normal [facility] CNOVon 02-29-2024 CNOV Normal [facility] CNPNon 02-26-2024 CNPN Normal [facility] Bacteria Ur Culton Bacteria identified Cx Nom (U) Abnormal [facility] Comment on above: Performed By: #### 6 30-4 ####[facility] [id number] [place] [address] [place] CBC W Auto Differential pane l (Bld)on 02-23-2024 Basophils (Bld) [#/Vol] 0.03 10*3/uL Normal <0.11 [facility] Comment on above: Order Comment: Speci men Type: BLOOD SPECIMENOrdering Facility: [facility] Address: [address] [place] [address] Performed By: #### 5 7021-8 ####[facility] [id number] [place] [address] [place] Basophils/100 WBC (Bld) 0.5 % Normal [facility] Comment on above: Order Comment: Speci men Type: BLOOD SPECIMENOrdering Facility: [facility] Address: [address] [place] [address] Performed By: #### 5 7021-8 ####[facility] [id number] [place] [address] [place] Differential cell count method Nom (Bld) Auto Normal [facility] Comment on above: Order Comment: Speci men Type: BLOOD SPECIMENOrdering Facility: [facility] Address: [address] [place] [address] Performed By: #### 5 7021-8 ####[facility] [id number] [place] [address] [place] Eosinophils (Bld) [#/Vol] 0.22 10*3/uL Normal <0.46 [facility] Comment on above: Order Comment: Speci men Type: BLOOD SPECIMENOrdering Facility: [facility] Address: [address] [place] [address] Performed By: #### 5 7021-8 ####[facility] [id number] [place] [address] [place] Eosinophils/100 WBC (Bld) 3.4 % Normal [facility] Comment on above: Order Comment: Speci men Type: BLOOD SPECIMENOrdering Facility: [facility] Address: [address] [place] [address] Performed By: #### 5 7021-8 ####[facility] [id number] [place] [address] [place] Erythrocyte distribution width (RBC) [Ratio] 13.8 % Normal 11.5-15.0 [facility] Comment on above: Order Comment: Speci men Type: BLOOD SPECIMENOrdering Facility: [facility] Address: [address] [place] [address] Performed By: #### 5 7021-8 ####[facility] [id number] [place] [address] [place] Hematocrit (Bld) [Volume fraction] 47.9 % High 36.0-46.0 [facility] Comment on above: Order Comment: Speci men Type: BLOOD SPECIMENOrdering Facility: [facility] Address: [address] [place] [address] Performed By: #### 5 7021-8 ####[facility] [id number] [place] [address] [place] Hemoglobin (Bld) [Mass/Vol] 15.6 g/dL High 11.5-15.5 [facility] Comment on above: Order Comment: Speci men Type: BLOOD SPECIMENOrdering Facility: [facility] Address: [address] [place] [address] Performed By: #### 5 7021-8 ####[facility] [id number] [place] [address] [place] Immature granulocytes (Bld) [#/Vol] 10*3/uL Normal <0.10 [facility] Comment on above: Order Comment: Speci men Type: BLOOD SPECIMENOrdering Facility: [facility] Address: [address] [place] [address] Performed By: #### 5 7021-8 ####[facility] [id number] [place] [address] [place] Immature granulocytes/100 WBC (Bld) 0.3 % Normal [facility] Comment on above: Order Comment: Speci men Type: BLOOD SPECIMENOrdering Facility: [facility] Address: [address] [place] [address] Performed By: #### 5 7021-8 ####[facility] [id number] [place] [address] [place] Lymphocytes (Bld) [#/Vol] 1.52 10*3/uL Normal 1.00-4.00 [facility] Comment on above: Order Comment: Speci men Type: BLOOD SPECIMENOrdering Facility: [facility] Address: [address] [place] [address] Performed By: #### 5 7021-8 ####[facility] [id number] [place] [address] [place] Lymphocytes/100 WBC (Bld) 23.4 % Normal [facility] Comment on above: Order Comment: Speci men Type: BLOOD SPECIMENOrdering Facility: [facility] Address: [address] [place] [address] Performed By: #### 5 7021-8 ####[facility] [id number] [place] [address] [place] MCH (RBC) [Entitic mass] 31.4 pg Normal 26.0-34.0 [facility] Comment on above: Order Comment: Speci men Type: BLOOD SPECIMENOrdering Facility: [facility] Address: [address] [place] [address] Performed By: #### 5 7021-8 ####[facility] [id number] [place] [address] [place] MCHC (RBC) [Mass/Vol] 32.6 g/dL Normal 30.5-36.0 [facility] Comment on above: Order Comment: Speci men Type: BLOOD SPECIMENOrdering Facility: [facility] Address: [address] [place] [address] Performed By: #### 5 7021-8 ####[facility] [id number] [place] [address] [place] MCV (RBC) [Entitic vol] 96.4 fL Normal 80.0-100.0 [facility] Comment on above: Order Comment: Speci men Type: BLOOD SPECIMENOrdering Facility: [facility] Address: [address] [place] [address] Performed By: #### 5 7021-8 ####[facility] [id number] [place] [address] [place] Monocytes (Bld) [#/Vol] 0.42 10*3/uL Normal <0.87 [facility] Comment on above: Order Comment: Speci men Type: BLOOD SPECIMENOrdering Facility: [facility] Address: [address] [place] [address] Performed By: #### 5 7021-8 ####[facility] [id number] [place] [address] [place] Monocytes/100 WBC (Bld) 6.5 % Normal [facility] Comment on above: Order Comment: Speci men Type: BLOOD SPECIMENOrdering Facility: [facility] Address: [address] [place] [address] Performed By: #### 5 7021-8 ####[facility] [id number] [place] [address] [place] Neutrophils (Bld) [#/Vol] 4.28 10*3/uL Normal 1.45-7.50 [facility] Comment on above: Order Comment: Speci men Type: BLOOD SPECIMENOrdering Facility: [facility] Address: [address] [place] [address] Performed By: #### 5 7021-8 ####[facility] [id number] [place] [address] [place] Neutrophils/100 WBC (Bld) 65.9 % Normal [facility] Comment on above: Order Comment: Speci men Type: BLOOD SPECIMENOrdering Facility: [facility] Address: [address] [place] [address] Performed By: #### 5 7021-8 ####[facility] [id number] [place] [address] [place] Nucleated RBC (Bld) [#/Vol] 10*3/uL Normal <0.01 [facility] Comment on above: Order Comment: Speci men Type: BLOOD SPECIMENOrdering Facility: [facility] Address: [address] [place] [address] Performed By: #### 5 7021-8 ####[facility] [id number] [place] [address] [place] Nucleated RBC/100 WBC (Bld) [Ratio] 0.0 /100 WBC Normal [facility] Comment on above: Order Comment: Speci men Type: BLOOD SPECIMENOrdering Facility: [facility] Address: [address] [place] [address] Performed By: #### 5 7021-8 ####[facility] [id number] [place] [address] [place] Platelet mean volume (Bld) [Entitic vol] 12.6 fL Normal 9.0-12.7 [facility] Comment on above: Order Comment: Speci men Type: BLOOD SPECIMENOrdering Facility: [facility] Address: [address] [place] [address] Performed By: #### 5 7021-8 ####[facility] [id number] [place] [address] [place] Platelets (Bld) [#/Vol] 212 10*3/uL Normal 150-400 [facility] Comment on above: Order Comment: Speci men Type: BLOOD SPECIMENOrdering Facility: [facility] Address: [address] [place] [address] Performed By: #### 5 7021-8 ####[facility] [id number] [place] [address] [place] RBC (Bld) [#/Vol] 4.97 10*6/uL Normal 3.90-5.20 [facility] Comment on above: Order Comment: Speci men Type: BLOOD SPECIMENOrdering Facility: [facility] Address: [address] [place] [address] Performed By: #### 5 7021-8 ####[facility] [id number] [address] [address] [place] WBC (Bld) [#/Vol] 6.49 10*3/uL Normal 3.70-11.00 [facility] Comment on above: Order Comment: Speci men Type: BLOOD SPECIMENOrdering Facility: [facility] Address: [address] [place] [address] Performed By: #### 5 7021-8 ####[facility] [id number] [place] [address] [place] [address] [facility] Comprehensive metabolic 2000 panelon 02-23-2024 Albumin [Mass/Vol] 3.9 g/dL Normal 3.9-4.9 [facility] Comment on above: Order Comment: Speci men Type: BLOOD SPECIMENOrdering Facility: [facility] Address: [address] [place] [address] Performed By: #### 2 4323-8, LIPNF, , 2132-07 ####[facility] [id number] [place] [address] [place] ALP [Catalytic activity/Vol] 93 U/L Normal 34-123 [facility] Comment on above: Order Comment: Speci men Type: BLOOD SPECIMENOrdering Facility: [facility] Address: [address] [place] [address] Performed By: #### 2 4323-8, LIPNF, , 2132-07 ####[facility] [id number] [place] [address] [place] ALT [Catalytic activity/Vol] 23 U/L Normal 7-38 [facility] Comment on above: Order Comment: Speci men Type: BLOOD SPECIMENOrdering Facility: [facility] Address: [address] [place] [address] Performed By: #### 2 4323-8, LIPNF, , 2132-07 ####[facility] [id number] [address] [address] [place] Anion gap [Moles/Vol] 17 mmol/L Normal 9-18 [facility] Comment on above: Order Comment: Speci men Type: BLOOD SPECIMENOrdering Facility: [facility] Address: [address] [place] [address] Performed By: #### 2 4323-8, LIPNF, , 2132-07 ####[facility] [id number] [place] [id number] [place] AST [Catalytic activity/Vol] 42 U/L High 13-35 [facility] Comment on above: Order Comment: Speci men Type: BLOOD SPECIMENOrdering Facility: [facility] Address: [address] [place] [address] Performed By: #### 2 4323-8, LIPNF, , 2132-07 ####[facility] [id number] [place] [id number] [place] Bilirubin [Mass/Vol] 0.6 mg/dL Normal 0.2-1.3 [facility] Comment on above: Order Comment: Speci men Type: BLOOD SPECIMENOrdering Facility: [facility] Address: [address] [place] [address] Performed By: #### 2 4323-8, LIPNF, , 2132-07 ####[facility] [id number] [address] [address] [place] Calcium [Mass/Vol] 10.2 mg/dL Normal 8.5-10.2 [facility] Comment on above: Order Comment: Speci men Type: BLOOD SPECIMENOrdering Facility: [facility] Address: [address] [place] [address] Performed By: #### 2 4323-8, LIPNF, , 2132-07 ####[facility] [id number] [place] [id number] [place] Chloride [Moles/Vol] 106 mmol/L High 97-105 [facility] Comment on above: Order Comment: Speci men Type: BLOOD SPECIMENOrdering Facility: [facility] Address: [address] [place] [address] Performed By: #### 2 4323-8, LIPNF, , 2132-07 ####[facility] [id number] [place] [address] [place] CO2 [Moles/Vol] 22 mmol/L Normal 22-30 [facility] Comment on above: Order Comment: Speci men Type: BLOOD SPECIMENOrdering Facility: [facility] Address: [address] [place] [address] Performed By: #### 2 4323-8, LIPNF, , 2132-07 ####[facility] [id number] [place] [address] [place] Creatinine [Mass/Vol] 0.76 mg/dL Normal 0.58-0.96 [facility] Comment on above: Order Comment: Speci men Type: BLOOD SPECIMENOrdering Facility: [facility] Address: [address] [place] [address] Performed By: #### 2 4323-8, LIPNF, , 2132-07 ####[facility] [id number] [place] [address] [place] Creatinine and Glomerular filtration rate.predicted panel (S/P/Bld) 80 mL/min/1.73m??? Normal >=60 [facility] Comment on above: Order Comment: Speci men Type: BLOOD SPECIMENOrdering Facility: [facility] Address: [address] [place] [address] Result Comment: Mary mated Glomerular Filtration Rate (eGFR) is calculated using the 2020 CKD-EPI creatinine equation. This equation utilizes serum creatinine, sex, and age as parameters. The creatinine assay has traceable calibration to isotope dilution-mass spectrometry. Refer to KDIGO guidelines for clinical interpretation. In patients with unstable renal function, e.g. those with acute kidney injury, the eGFR may not accurately reflect actual GFR. Performed By: #### 2 4323-8, LIPBERYL, , 2132-07 ####[facility] [id number] [address] [address] [place] Glucose [Mass/Vol] 85 mg/dL Normal 74-99 [facility] Comment on above: Order Comment: Specadarsh ayala Type: BLOOD SPECIMENOrdering Facility: [facility] Address: [address] [place] [address] Result Comment: The [place] Diabetes Association (ADA) provides guidance for cutoff values for fasting glucose and random glucose. The ADA defines fasting as no caloric intake for at least 8 hours. Fasting plasma glucose results between 100 to 125 mg/dL indicate increased risk for diabetes (prediabetes).Fasting plasma glucose results greater than or equal to 126 mg/dL meet the criteria for diagnosis of diabetes. In the absence of unequivocal hyperglycemia, results should be confirmed by repeat testing. In a patient with classic symptoms of hyperglycemia or hyperglycemic crisis, random plasma glucose results greater than or equal to 200 mg/dL meet the criteria for diagnosis of diabetes.Reference: Standards of Medical Care in Diabetes 2016, [place] [employer] Association. Diabetes Care. 2016.39(Suppl 1). Performed By: #### 2 4323-8, LIPNF, , 2132-07 ####[facility] [id number] [address] [address] [place] Potassium [Moles/Vol] 4.3 mmol/L Normal 3.7-5.1 [facility] Comment on above: Order Comment: Sanchezi men Type: BLOOD SPECIMENOrdering Facility: [facility] Address: [address] [place] [address] Performed By: #### 2 4323-8, LIPNF, , 2132-07 ####[facility] [id number] [address] [address] [place] Protein [Mass/Vol] 7.2 g/dL Normal 6.3-8.0 [facility] Comment on above: Order Comment: Speci men Type: BLOOD SPECIMENOrdering Facility: [facility] Address: [address] [place] [address] Performed By: #### 2 4323-8, LIPNF, , 2132-07 ####[facility] [id number] [place] [address] [place] Sodium [Moles/Vol] 145 mmol/L High 136-144 [facility] Comment on above: Order Comment: Speci men Type: BLOOD SPECIMENOrdering Facility: [facility] Address: [address] [place] [address] Performed By: #### 2 4323-8, LIPNF, , 2132-07 ####[facility] [id number] [place] [address] [place] Urea nitrogen [Mass/Vol] 14 mg/dL Normal 7-21 [facility] Comment on above: Order Comment: Speci men Type: BLOOD SPECIMENOrdering Facility: [facility] Address: [address] [place] [address] Performed By: #### 2 4323-8, LIPNF, , 2132-07 ####[facility] [id number] [place] [id number] [place] HbA1c (Bld)on 02-23-2024 Average glucose Estimated from glycated hemoglobin (Bld) [Mass/Vol] 114 mg/dL Normal [facility] Comment on above: Order Comment: Speci men Type: BLOOD SPECIMENOrdering Facility: [facility] Address: [address] [place] [address] Result Comment: eAG: (Estimated average glucose) is a calculated value from HgbA1c and is canvas products sales representative of the average blood glucose level in the last 2-3 month period. Performed By: #### 5 5454-3 ####[facility] [id number] [place] [address] [place] HbA1c (Bld) [Mass fraction] 5.6 % Normal 4.3-5.6 [facility] Comment on above: Order Comment: Aparna ayala Type: BLOOD SPECIMENOrdering Facility: [facility] Address: [address] [place] [address] Result Comment: [place] Diabetes Association guidelines indicate that patients with HgbA1c in the range 5.7-6.4% are at increased risk for development of diabetes, and intervention by lifestyle modification may be beneficial. HgbA1c greater or equal to 6.5% is considered diagnostic of diabetes. Performed By: #### 5 5454-3 ####[facility] [id number] [address] [place] LIPID PANEL, NONFASTINGon Cholesterol [Mass/Vol] 172 mg/dL Normal <200 [facility] Comment on above: Order Comment: Aparna ayala Type: BLOOD SPECIMENOrdering Facility: [facility] Address: [address] [place] [address] Result Comment: <200 mg/dL, Desirable 200-239 mg/dL, Borderline high>239 mg/dL, High Performed By: #### 2 4323-8, LIPNF, 65657-5, 2132-9 ####[facility] [id number] [address] [place] HDL CHOLESTEROL, NF 54 mg/dL Normal >39 [facility] Comment on above: Order Comment: Aparna ayala Type: BLOOD SPECIMENOrdering Facility: [facility] Address: [address] [place] [address] Result Comment: 40-5 9 mg/dL, Acceptable>59 mg/dL, High: Negative risk factor for coronary heart disease<40 mg/dL, Low: Positive risk factor for coronary heart disease Performed By: #### 2 4323-8, LIPNF, , 2132-07 ####[facility] [id number] [place] [address] [place] LDL CHOLESTEROL, NF 86 mg/dL Normal <100 [facility] Comment on above: Order Comment: Speci men Type: BLOOD SPECIMENOrdering Facility: [facility] Address: [address] [place] [address] Result Comment: <100 mg/dL, Optimal 100-129 mg/dL, Near optimal/above optimal 130-159 mg/dL, Borderline high 160-189 mg/dL, High>189 mg/dL, Very highSecondary prevention optimal LDL Cholesterol levels are recommended to be < 70 mg/dL Performed By: #### 2 4323-8, LIPNF, , 2132-07 ####[facility] [id number] [address] [place] LDL/HDL RATIO, NF 1.59 mg/dL Normal <2.54 [facility] Comment on above: Order Comment: Speci men Type: BLOOD SPECIMENOrdering Facility: [facility] Address: [address] [place] [address] Result Comment: Refe rence:1. National Cholesterol Education Program ATP III Guideline At-A-Glance Quick Desk Reference: National Heart, Lung, and Blood Rock View. National Institutes of Health. 2001: NIH Publication No. 01-3305.2. An International Atherosclerosis Society position paper: global recommendations for the management of dyslipidemia: executive summary, Atherosclerosis. 2014: 232(2):410-413. Performed By: #### 2 4323-8, LIPNF, , 2132-07 ####[facility] [id number] [place] [address] [place] NON HDL CHOL, NF 118 mg/dL Normal <130 [facility] Comment on above: Order Comment: Speci men Type: BLOOD SPECIMENOrdering Facility: [facility] Address: [address] [place] [address] Result Comment: <130 mg/dL, Optimal 130-159 mg/dL, Near optimal/above optimal 160-189 mg/dL, Borderline high 190-219 mg/dL, High>219 mg/dL, Very highSecondary prevention optimal non HDL Cholesterol levels are recommended to be <100 mg/dL Performed By: #### 2 4323-8, LIPNF, , 2132-07 ####[facility] [id number] [place] [address] [place] T CHOL/HDL RATIO NF 3.19 mg/dL Normal <5.10 [facility] Comment on above: Order Comment: Speci men Type: BLOOD SPECIMENOrdering Facility: [facility] Address: [address] [place] [address] Performed By: #### 2 4323-8, LIPNF, , 2132-07 ####[facility] [id number] [place] [address] [place] TRIGLYCERIDES, NF 160 mg/dL High <150 [facility] Comment on above: Order Comment: Speci men Type: BLOOD SPECIMENOrdering Facility: [facility] Address: [address] [place] [address] Result Comment: <150 mg/dL, Normal 150-199 mg/dL, Borderline high 200-499 mg/dL, High>499 mg/dL, Very high Performed By: #### 2 4323-8, LIPNF, , 2132-07 ####[facility] [id number] [place] [id number] [place] VLDL CHOLESTEROL, NF 32 mg/dL High <30 [facility] Comment on above: Order Comment: Speci men Type: BLOOD SPECIMENOrdering Facility: [facility] Address: [address] [place] [address] Performed By: #### 2 4323-8, LIPNF, , 2132-07 ####[facility] [id number] [place] [address] [place] Magnesium SerPl-mCncon 02-22 Magnesium [Mass/Vol] 2.0 mg/dL Normal 1.7-2.3 [facility] Comment on above: Order Comment: Speci men Type: BLOOD SPECIMENOrdering Facility: [facility] Address: [address] [place] [address] Performed By: #### 2 4323-8, LIPNF, 34640-4, 2131-9 ####[facility]IA [id number] [place] [address] [place] Urinalysis complete panel (U )on 02-23-2024 BACTERIA UL >9821 High Negative [facility] Comment on above: Order Comment: Speci men Type: URINE SPECIMENOrdering Facility: [facility] Address: [address] [place] [address] Performed By: #### 2 4356-8 ####[facility] [id number] [place] [address] [place] Bilirubin Ql (U) Negative Normal Negative [facility] Comment on above: Order Comment: Speci men Type: URINE SPECIMENOrdering Facility: [facility] Address: [address] [place] [address] Performed By: #### 2 4356-8 ####[facility]IA [id number] [place] [address] [place] Clarity (Unsp spec) Clear Normal Clear [facility] Comment on above: Order Comment: Speci men Type: URINE SPECIMENOrdering Facility: [facility] Address: [address] [place] [address] Performed By: #### 2 4356-8 ####[facility]IA [id number] [place] [address] [place] Color (U) Yellow Normal Yellow [facility] Comment on above: Order Comment: Speci men Type: URINE SPECIMENOrdering Facility: [facility] Address: [address] [place] [address] Performed By: #### 2 4356-8 ####[facility] [id number] [place] [address] [place] Epithelial cells LM.HPF (Urine sed) [#/Area] None Seen Normal [facility] Comment on above: Order Comment: Speci men Type: URINE SPECIMENOrdering Facility: [facility] Address: [address] [place] [address] Performed By: #### 2 4356-8 ####[facility] [id number] [place] [address] [place] Glucose Test strip (U) [Mass/Vol] Negative Normal Negative [facility] Comment on above: Order Comment: Speci men Type: URINE SPECIMENOrdering Facility: [facility] Address: [address] [place] [address] Performed By: #### 2 4356-8 ####[facility] [id number] [place] [address] [place] Hemoglobin Ql (U) Negative Normal Negative [facility] Comment on above: Order Comment: Speci men Type: URINE SPECIMENOrdering Facility: [facility] Address: [address] [place] [address] Performed By: #### 2 4356-8 ####[facility] [id number] [place] [address] [place] Hyaline casts (Urine sed) [#/Area] 1-3 /LPF Abnormal 0 /LPF [facility] Comment on above: Order Comment: Speci men Type: URINE SPECIMENOrdering Facility: [facility] Address: [address] [place] [address] Performed By: #### 2 4356-8 ####[facility] [id number] [place] [address] [place] Ketones Ql (U) Negative Normal Negative [facility] Comment on above: Order Comment: Speci men Type: URINE SPECIMENOrdering Facility: [facility] Address: [address] [place] [address] Performed By: #### 2 4356-8 ####[facility] [id number] [place] [address] [place] Leukocyte esterase Test strip Ql (U) 2+ Abnormal Negative [facility] Comment on above: Order Comment: Speci men Type: URINE SPECIMENOrdering Facility: [facility] Address: [address] [place] [address] Performed By: #### 2 4356-8 ####[facility] [id number] [place] [address] [place] Nitrite Ql (U) Positive Abnormal Negative [facility] Comment on above: Order Comment: Speci men Type: URINE SPECIMENOrdering Facility: [facility] Address: [address] [place] [address] Performed By: #### 2 4356-8 ####[facility] [id number] [place] [address] [place] pH (U) 6.0 [pH] Normal <8.5 [facility] Comment on above: Order Comment: Speci men Type: URINE SPECIMENOrdering Facility: [facility] Address: [address] [place] [address] Performed By: #### 2 4356-8 ####[facility] [id number] [place] [address] [place] Protein (U) [Mass/Vol] 1+ Abnormal Negative [facility] Comment on above: Order Comment: Speci men Type: URINE SPECIMENOrdering Facility: [facility] Address: [address] [place] [address] Performed By: #### 2 4356-8 ####[facility]IA [id number] [place] [address] [place] RBC LM.HPF (Urine sed) [#/Area] 3-5 /HPF Abnormal 0-2 /HPF [facility] Comment on above: Order Comment: Speci men Type: URINE SPECIMENOrdering Facility: [facility] Address: [address] [place] [address] Performed By: #### 2 4356-8 ####[facility] [id number] [place] [address] [place] Specific gravity (U) [Rel density] 1.015 Normal 1.005-1.030 [facility] Comment on above: Order Comment: Speci men Type: URINE SPECIMENOrdering Facility: [facility] Address: [address] [place] [address] Performed By: #### 2 4356-8 ####[facility] [id number] [place] [address] [place] Urobilinogen Ql (U) 1.0 EU/dL Normal 0.2-1.0 EU/dL Cl [facility] Comment on above: Order Comment: Speci men Type: URINE SPECIMENOrdering Facility: [facility] Address: [address] [place] [address] Performed By: #### 2 4356-8 ####[facility]IA [id number] [place] [address] [place] WBC LM.HPF (Urine sed) [#/Area] /[HPF] Abnormal 0-5 /HPF [facility] Comment on above: Order Comment: Speci men Type: URINE SPECIMENOrdering Facility: [facility] Address: [address] [place] [address] Performed By: #### 2 4356-8 ####[facility] LABIA [id number] [place] [address] [place] Vit B12 SerPl-mCncon 024 Cobalamin (Vitamin B12) [Mass/Vol] pg/mL High 232-1245 [facility] Comment on above: Order Comment: Speci men Type: BLOOD SPECIMENOrdering Facility: [facility] Address: [address] [place] [address] Performed By: #### 2 4323-8, LIPNF, 39559-9, 2132-9 ####[facility] [id number] [place] [address] [place] CNPNon 01-31-2024 CNPN Normal [facility] CNOVon 01-29-2024 CNOV Normal [facility] CNNURSEon 12-25-2023 CNNURSE Normal [facility] CNOVon 12-25-2023 CNOV Normal [facility] PVR ANK/TORO/TOE [facility] on 12-25-2023 PVR ANK/TORO/TOE [facility] Normal [facility] US CAROTID ARTERIES URIEL [facility]AS LABon 12-25-2023 US CAROTID ARTERIES [facility] Normal [facility] CNPNon 12-14-2023 CNPN Normal [facility] MRI 3D POST PROCESSINGon MRI 3D POST PROCESSING Normal [facility] MRI BRAIN WO IVCONon 024 MRI BRAIN WO IVCON Normal [facility] No Panel Informationon 12-14 [facility] CNPNon 11-23-2023 CNPN Normal [facility] Bacteria Ur Culton 4 Bacteria identified Cx Nom (U) Abnormal [facility] Comment on above: Performed By: #### 6 30-4 ####[facility] [id number] [place] [address] [place] CNOVon 11-22-2023 CNOV Normal [facility] CNOV Normal [facility] Bacteria Ur Culton 4 Bacteria identified Cx Nom (U) Abnormal [facility] Comment on above: Performed By: #### 6 30-4 ####[facility] [id number] [place] [address] [place] CBC W Auto Differential pane l (Bld)on 11-21-2023 Basophils (Bld) [#/Vol] 0.03 10*3/uL Normal <0.11 [facility] Comment on above: Order Comment: Speci men Type: BLOOD SPECIMENOrdering Facility: [facility] Address: [address] [place] [address] Performed By: #### 5 7021-8 ####[facility]CL[facility] [id number] [place] [address] [place] Basophils/100 WBC (Bld) 0.3 % Normal [facility] Comment on above: Order Comment: Speci men Type: BLOOD SPECIMENOrdering Facility: [facility] Address: [address] [place] [address] Performed By: #### 5 7021-8 ####[facility]CL[facility] [id number] [place] [address] [place] Differential cell count method Nom (Bld) Auto Normal [facility] Comment on above: Order Comment: Speci men Type: BLOOD SPECIMENOrdering Facility: [facility] Address: [address] [place] [address] Performed By: #### 5 7021-8 ####[facility]CL[facility] [id number] [place] [address] [place] Eosinophils (Bld) [#/Vol] 0.16 10*3/uL Normal <0.46 [facility] Comment on above: Order Comment: Speci men Type: BLOOD SPECIMENOrdering Facility: [facility] Address: [address] [place] [address] Performed By: #### 5 7021-8 ####[facility]CL[facility] [id number] [place] [address] [place] Eosinophils/100 WBC (Bld) 1.7 % Normal [facility] Comment on above: Order Comment: Speci men Type: BLOOD SPECIMENOrdering Facility: [facility] Address: [address] [place] [address] Performed By: #### 5 7021-8 ####[facility]IA [id number] [place] [address] [place] Erythrocyte distribution width (RBC) [Ratio] 13.8 % Normal 11.5-15.0 [facility] Comment on above: Order Comment: Speci men Type: BLOOD SPECIMENOrdering Facility: [facility] Address: [address] [place] [address] Performed By: #### 5 7021-8 ####[facility]IA [id number] [place] [address] [place] Hematocrit (Bld) [Volume fraction] 47.7 % High 36.0-46.0 [facility] Comment on above: Order Comment: Speci men Type: BLOOD SPECIMENOrdering Facility: [facility] Address: [address] [place] [address] Performed By: #### 5 7021-8 ####[facility]IA [id number] [place] [address] [place] Hemoglobin (Bld) [Mass/Vol] 15.6 g/dL High 11.5-15.5 [facility] Comment on above: Order Comment: Speci men Type: BLOOD SPECIMENOrdering Facility: [facility] Address: [address] [place] [address] Performed By: #### 5 7021-8 ####[facility]IA [id number] [place] [address] [place] Immature granulocytes (Bld) [#/Vol] 0.03 10*3/uL Normal <0.10 [facility] Comment on above: Order Comment: Speci men Type: BLOOD SPECIMENOrdering Facility: [facility] Address: [address] [place] [address] Performed By: #### 5 7021-8 ####[facility]CL[facility] [id number] [place] [address] [place] Immature granulocytes/100 WBC (Bld) 0.3 % Normal [facility] Comment on above: Order Comment: Speci men Type: BLOOD SPECIMENOrdering Facility: [facility] Address: [address] [place] [address] Performed By: #### 5 7021-8 ####[facility]CL[facility] [id number] [place] [address] [place] Lymphocytes (Bld) [#/Vol] 2.02 10*3/uL Normal 1.00-4.00 [facility] Comment on above: Order Comment: Speci men Type: BLOOD SPECIMENOrdering Facility: [facility] Address: [address] [place] [address] Performed By: #### 5 7021-8 ####[facility]CL[facility] [id number] [place] [address] [place] Lymphocytes/100 WBC (Bld) 22.0 % Normal [facility] Comment on above: Order Comment: Speci men Type: BLOOD SPECIMENOrdering Facility: [facility] Address: [address] [place] [address] Performed By: #### 5 7021-8 ####[facility]CL[facility] [id number] [place] [address] [place] MCH (RBC) [Entitic mass] 31.4 pg Normal 26.0-34.0 [facility] Comment on above: Order Comment: Speci men Type: BLOOD SPECIMENOrdering Facility: [facility] Address: [address] [place] [address] Performed By: #### 5 7021-8 ####[facility]CL[facility] [id number] [place] [address] [place] MCHC (RBC) [Mass/Vol] 32.7 g/dL Normal 30.5-36.0 [facility] Comment on above: Order Comment: Speci men Type: BLOOD SPECIMENOrdering Facility: [facility] Address: [address] [place] [address] Performed By: #### 5 7021-8 ####[facility] LABIA [id number] [place] [address] [place] MCV (RBC) [Entitic vol] 96.0 fL Normal 80.0-100.0 [facility] Comment on above: Order Comment: Speci men Type: BLOOD SPECIMENOrdering Facility: [facility] Address: [address] [place] [address] Performed By: #### 5 7021-8 ####[facility]IA [id number] [place] [address] [place] Monocytes (Bld) [#/Vol] 0.65 10*3/uL Normal <0.87 [facility] Comment on above: Order Comment: Speci men Type: BLOOD SPECIMENOrdering Facility: [facility] Address: [address] [place] [address] Performed By: #### 5 7021-8 ####[facility] [id number] [place] [address] [place] Monocytes/100 WBC (Bld) 7.1 % Normal [facility] Comment on above: Order Comment: Speci men Type: BLOOD SPECIMENOrdering Facility: [facility] Address: [address] [place] [address] Performed By: #### 5 7021-8 ####[facility]IA [id number] [place] [address] [place] Neutrophils (Bld) [#/Vol] 6.31 10*3/uL Normal 1.45-7.50 [facility] Comment on above: Order Comment: Speci men Type: BLOOD SPECIMENOrdering Facility: [facility] Address: [address] [place] [address] Performed By: #### 5 7021-8 ####[facility] [id number] [place] [address] [place] Neutrophils/100 WBC (Bld) 68.6 % Normal [facility] Comment on above: Order Comment: Speci men Type: BLOOD SPECIMENOrdering Facility: [facility] Address: [address] [place] [address] Performed By: #### 5 7021-8 ####[facility] [id number] [place] [address] [place] Nucleated RBC (Bld) [#/Vol] 10*3/uL Normal <0.01 [facility] Comment on above: Order Comment: Speci men Type: BLOOD SPECIMENOrdering Facility: [facility] Address: [address] [place] [address] Performed By: #### 5 7021-8 ####[facility] [id number] [place] [address] [place] Nucleated RBC/100 WBC (Bld) [Ratio] 0.0 /100 WBC Normal [facility] Comment on above: Order Comment: Speci men Type: BLOOD SPECIMENOrdering Facility: [facility] Address: [address] [place] [address] Performed By: #### 5 7021-8 ####[facility] [id number] [place] [address] [place] Platelet mean volume (Bld) [Entitic vol] 11.6 fL Normal 9.0-12.7 [facility] Comment on above: Order Comment: Speci men Type: BLOOD SPECIMENOrdering Facility: [facility] Address: [address] [place] [address] Performed By: #### 5 7021-8 ####[facility] [id number] [place] [address] [place] Platelets (Bld) [#/Vol] 188 10*3/uL Normal 150-400 [facility] Comment on above: Order Comment: Speci men Type: BLOOD SPECIMENOrdering Facility: [facility] Address: [address] [place] [address] Performed By: #### 5 7021-8 ####[facility] [id number] [address] [address] [place] RBC (Bld) [#/Vol] 4.97 10*6/uL Normal 3.90-5.20 [facility] Comment on above: Order Comment: Speci men Type: BLOOD SPECIMENOrdering Facility: [facility] Address: [address] [place] [address] Performed By: #### 5 7021-8 ####[facility] [id number] [place] [address] [place] WBC (Bld) [#/Vol] 9.20 10*3/uL Normal 3.70-11.00 [facility] Comment on above: Order Comment: Speci men Type: BLOOD SPECIMENOrdering Facility: [facility] Address: [address] [place] [address] Performed By: #### 5 7021-8 ####[facility] [id number] [place] [id number] [place] CNOVon 11-21-2023 CNOV Normal [facility] Comprehensive metabolic 2000 panelon 11-21-2023 Albumin [Mass/Vol] 3.8 g/dL Low 3.9-4.9 [facility] Comment on above: Order Comment: Speci men Type: BLOOD SPECIMENOrdering Facility: [facility] Address: [address] [place] [address] Performed By: #### 2 4323-8, 3016-3, 2132-9, 3024-7 ####[facility] [id number] [place] [id number] [place] ALP [Catalytic activity/Vol] 88 U/L Normal 34-123 [facility] Comment on above: Order Comment: Speci men Type: BLOOD SPECIMENOrdering Facility: [facility] Address: [address] [place] [address] Performed By: #### 2 4323-8, 3015-3, 2132-07, 3024-05 ####[facility] [id number] [address] [address] [place] ALT [Catalytic activity/Vol] 24 U/L Normal 7-38 [facility] Comment on above: Order Comment: Speci men Type: BLOOD SPECIMENOrdering Facility: [facility] Address: [address] [place] [address] Performed By: #### 2 4323-8, 3015-3, 2132-07, 3024-05 ####[facility] [id number] [place] [address] [place] Anion gap [Moles/Vol] 17 mmol/L Normal 9-18 [facility] Comment on above: Order Comment: Speci men Type: BLOOD SPECIMENOrdering Facility: [facility] Address: [address] [place] [address] Performed By: #### 2 4323-8, 3, 2132-07, 3024-05 ####[facility] [id number] [place] [id number] [place] AST [Catalytic activity/Vol] 36 U/L High 13-35 [facility] Comment on above: Order Comment: Speci men Type: BLOOD SPECIMENOrdering Facility: [facility] Address: [address] [place] [address] Performed By: #### 2 4323-8, 3015-3, 2132-07, 3024-05 ####[facility] [id number] [address] [address] [place] Bilirubin [Mass/Vol] 0.5 mg/dL Normal 0.2-1.3 [facility] Comment on above: Order Comment: Speci men Type: BLOOD SPECIMENOrdering Facility: [facility] Address: [address] [place] [id number] Performed By: #### 2 4323-8, 3015-3, 2132-07, 3024-05 ####[facility] [id number] [address] [address] [place] Calcium [Mass/Vol] 10.4 mg/dL High 8.5-10.2 [facility] Comment on above: Order Comment: Speci men Type: BLOOD SPECIMENOrdering Facility: [facility] Address: [address] [place] [address] Performed By: #### 2 4323-8, 3015-3, 2132-07, 3024-05 ####[facility] [id number] [place] [id number] [place] Chloride [Moles/Vol] 106 mmol/L High 97-105 [facility] Comment on above: Order Comment: Speci men Type: BLOOD SPECIMENOrdering Facility: [facility] Address: [address] [place] [address] Performed By: #### 2 4323-8, 3015-3, 2132-07, 3024-05 ####[facility]IA [id number] [address] [address] [place] CO2 [Moles/Vol] 22 mmol/L Normal 22-30 [facility] Comment on above: Order Comment: Speci men Type: BLOOD SPECIMENOrdering Facility: [facility] Address: [address] [place] [id number] Performed By: #### 2 4323-8, 3015-3, 2132-07, 3024-05 ####[facility] [id number] [address] [address] [place] Creatinine [Mass/Vol] 0.83 mg/dL Normal 0.58-0.96 [facility] Comment on above: Order Comment: Speci men Type: BLOOD SPECIMENOrdering Facility: [facility] Address: [address] [place] [address] Performed By: #### 2 4323-8, 3016-3, 2131-9, 3024-7 ####[facility] [id number] [place] [address] [place] Creatinine and Glomerular filtration rate.predicted panel (S/P/Bld) 72 mL/min/1.73m??? Normal >=60 [facility] Comment on above: Order Comment: Aparna jamie Type: BLOOD SPECIMENOrdering Facility: [facility] Address: [address] [place] [address] Result Comment: Mary mated Glomerular Filtration Rate (eGFR) is calculated using the 2020 CKD-EPI creatinine equation. This equation utilizes serum creatinine, sex, and age as parameters. The creatinine assay has traceable calibration to isotope dilution-mass spectrometry. Refer to KDIGO guidelines for clinical interpretation. In patients with unstable renal function, e.g. those with acute kidney injury, the eGFR may not accurately reflect actual GFR. Performed By: #### 2 4323-8, 3016-3, 2131-9, 3024-7 ####[facility] [id number] [place] [id number] [place] Glucose [Mass/Vol] 104 mg/dL High 74-99 [facility] Comment on above: Order Comment: Aparna ayala Type: BLOOD SPECIMENOrdering Facility: [facility] Address: [address] [place] [address] Result Comment: The [place] [employer] (ADA) provides guidance for cutoff values for fasting glucose and random glucose. The ADA defines fasting as no caloric intake for at least 8 hours. Fasting plasma glucose results between 100 to 125 mg/dL indicate increased risk for diabetes (prediabetes).Fasting plasma glucose results greater than or equal to 126 mg/dL meet the criteria for diagnosis of diabetes. In the absence of unequivocal hyperglycemia, results should be confirmed by repeat testing. In a patient with classic symptoms of hyperglycemia or hyperglycemic crisis, random plasma glucose results greater than or equal to 200 mg/dL meet the criteria for diagnosis of diabetes.Reference: Standards of Medical Care in Diabetes 2016, [place] [employer]. Diabetes Care. 2016.39(Suppl 1). Performed By: #### 2 4323-8, 6-3, 2132-07, 7 ####[facility]CLIA [id number] [address] [address] [place] Potassium [Moles/Vol] 3.8 mmol/L Normal 3.7-5.1 [facility] Comment on above: Order Comment: Speci men Type: BLOOD SPECIMENOrdering Facility: [facility] Address: [address] [place] [address] Performed By: #### 2 4323-8, 3015-3, 2132-07, 3024-05 ####[facility] LABIA [id number] [address] [address] [place] Protein [Mass/Vol] 6.6 g/dL Normal 6.3-8.0 [facility] Comment on above: Order Comment: Speci men Type: BLOOD SPECIMENOrdering Facility: [facility] Address: [address] [place] [address] Performed By: #### 2 4323-8, 3, 2132-07, 3024-05 ####[facility] LABIA [id number] [address] [address] [place] Sodium [Moles/Vol] 145 mmol/L High 136-144 [facility] Comment on above: Order Comment: Speci men Type: BLOOD SPECIMENOrdering Facility: [facility] Address: [address] [place] [id number] Performed By: #### 2 4323-8, 3, 2132-07, 3024-05 ####[facility] [id number] [address] [address] [place] Urea nitrogen [Mass/Vol] 23 mg/dL High 7-21 [facility] Comment on above: Order Comment: Speci men Type: BLOOD SPECIMENOrdering Facility: [facility] Address: [address] [place] [address] Performed By: #### 2 4323-8, 3015-3, 2132-07, 3024-05 ####[facility]CL[facility] [id number] [place] [address] [place] Reagin and Treponema pallidu m IgG and IgM [Interp]on 11-21-2023 T. pallidum IgG+IgM IA Ql (S) Non-Reactive Normal Nonreactive [facility] Comment on above: Order Comment: Speci men Type: BLOOD SPECIMENOrdering Facility: [facility] Address: [address] [place] [address] Performed By: #### 7 3752-8 ####[facility]CL[facility] [id number] [place] [address] [place] Reagin+T pallidum IgG+IgM Se rPl-Impon 11-21-2023 Reagin and Treponema pallidum IgG and IgM [Interp] Cannot exclude recent Treponemal infection if specimen collected within 7-10 days after appearance of suspect lesions or 2-3 weeks after an exposure. Clinical correlation is required. Normal [facility] Comment on above: Order Comment: Speci men Type: BLOOD SPECIMENOrdering Facility: [facility] Address: [address] [place] [address] Performed By: #### 7 3752-8 ####[facility]CL[facility] [id number] [place] [address] [place] T4 Free SerPl-mCncon 024 Free T4 [Mass/Vol] 0.8 ng/dL Low 0.9-1.7 [facility] Comment on above: Order Comment: Speci men Type: BLOOD SPECIMENOrdering Facility: [facility] Address: [address] [place] [address] Performed By: #### 2 4323-8, 3015-3, 2132-07, 3024-05 ####[facility] [id number] [place] [address] [place] TSH SerPl-aCncon 11-21-2023 TSH Qn 0.624 m[IU]/L Normal 0.270-4.200 [facility] Comment on above: Order Comment: Speci men Type: BLOOD SPECIMENOrdering Facility: [facility] Address: [address] [place] [address] Performed By: #### 2 4323-8, 3016-3, 2132-9, 3024-7 ####[facility] LABIA [id number] [place] [address] [place] Urinalysis complete panel (U )on 11-21-2023 BACTERIA UL >9821 High Negative [facility] Comment on above: Order Comment: Speci men Type: URINE SPECIMENOrdering Facility: [facility] Address: [address] [place] [address] Performed By: #### 2 4356-8 ####[facility]IA [id number] [place] [address] [place] Bilirubin Ql (U) Negative Normal Negative [facility] Comment on above: Order Comment: Speci men Type: URINE SPECIMENOrdering Facility: [facility] Address: [address] [place] [address] Performed By: #### 2 4356-8 ####[facility]IA [id number] [place] [address] [place] Clarity (Unsp spec) Cloudy Abnormal Clear [facility] Comment on above: Order Comment: Speci men Type: URINE SPECIMENOrdering Facility: [facility] Address: [address] [place] [address] Performed By: #### 2 4356-8 ####[facility]IA [id number] [place] [address] [place] Color (U) Yellow Normal Yellow [facility] Comment on above: Order Comment: Speci men Type: URINE SPECIMENOrdering Facility: [facility] Address: [address] [place] [address] Performed By: #### 2 4356-8 ####[facility] [id number] [place] [address] [place] Epithelial cells LM.HPF (Urine sed) [#/Area] None Seen Normal [facility] Comment on above: Order Comment: Speci men Type: URINE SPECIMENOrdering Facility: [facility] Address: [address] [place] [address] Performed By: #### 2 4356-8 ####[facility] [id number] [address] [place] [facility] Glucose Test strip (U) [Mass/Vol] Negative Normal Negative [facility] Comment on above: Order Comment: Speci men Type: URINE SPECIMENOrdering Facility: [facility] Address: [address] [place] [address] Performed By: #### 2 4356-8 ####[facility] [id number] [place] [address] [place] Hemoglobin Ql (U) 2+ Abnormal Negative [facility] Comment on above: Order Comment: Speci men Type: URINE SPECIMENOrdering Facility: [facility] Address: [address] [place] [address] Performed By: #### 2 4356-8 ####[facility] [id number] [place] [address] [place] Hyaline casts (Urine sed) [#/Area] 1-3 /LPF Abnormal 0 /LPF [facility] Comment on above: Order Comment: Speci men Type: URINE SPECIMENOrdering Facility: [facility] Address: [address] [place] [address] Performed By: #### 2 4356-8 ####[facility]CL[facility] [id number] [id number] [address] [place] Ketones Ql (U) Trace Abnormal Negative [facility] Comment on above: Order Comment: Speci men Type: URINE SPECIMENOrdering Facility: [facility] Address: [address] [place] [address] Performed By: #### 2 4356-8 ####[facility] [id number] [place] [address] [place] Leukocyte esterase Test strip Ql (U) 3+ Abnormal Negative [facility] Comment on above: Order Comment: Speci men Type: URINE SPECIMENOrdering Facility: [facility] Address: [address] [place] [address] Performed By: #### 2 4356-8 ####[facility] [id number] [place] [address] [place] Nitrite Ql (U) Negative Normal Negative [facility] Comment on above: Order Comment: Speci men Type: URINE SPECIMENOrdering Facility: [facility] Address: [address] [place] [address] Performed By: #### 2 4356-8 ####[facility]CL[facility] [id number] [place] [address] [place] pH (U) 6.0 [pH] Normal <8.5 [facility] Comment on above: Order Comment: Speci men Type: URINE SPECIMENOrdering Facility: [facility] Address: [address] [place] [address] Performed By: #### 2 4356-8 ####[facility]CL[facility] [id number] [place] [address] [place] Protein (U) [Mass/Vol] 2+ Abnormal Negative [facility] Comment on above: Order Comment: Speci men Type: URINE SPECIMENOrdering Facility: [facility] Address: [address] [place] [address] Performed By: #### 2 4356-8 ####[facility]CL[facility] [id number] [place] [address] [place] RBC LM.HPF (Urine sed) [#/Area] 3-5 /HPF Abnormal 0-2 /HPF [facility] Comment on above: Order Comment: Speci men Type: URINE SPECIMENOrdering Facility: [facility] Address: [address] [place] [address] Performed By: #### 2 4356-8 ####[facility]IA [id number] [place] [address] [place] Specific gravity (U) [Rel density] 1.020 Normal 1.005-1.030 [facility] Comment on above: Order Comment: Speci men Type: URINE SPECIMENOrdering Facility: [facility] Address: [address] [place] [address] Performed By: #### 2 4356-8 ####[facility]IA [id number] [place] [address] [place] Urobilinogen Ql (U) 0.2 EU/dL Normal 0.2-1.0 EU/dL Cl [facility] Comment on above: Order Comment: Speci men Type: URINE SPECIMENOrdering Facility: [facility] Address: [address] [place] [address] Performed By: #### 2 4356-8 ####[facility]IA [id number] [place] [address] [place] WBC LM.HPF (Urine sed) [#/Area] /[HPF] Abnormal 0-5 /HPF [facility] Comment on above: Order Comment: Speci men Type: URINE SPECIMENOrdering Facility: [facility] Address: [address] [place] [address] Performed By: #### 2 4356-8 ####[facility]IA [id number] [place] [address] [place] Vit [facility]12 [facility] Cobalamin (Vitamin B12) [Mass/Vol] 965 pg/mL Normal 232-1245 [facility] Comment on above: Order Comment: Speci men Type: BLOOD SPECIMENOrdering Facility: [facility] Address: [address] [place] [id number] Performed By: #### 2 4323-8, 3016-3, 2132-9, 3024-7 ####[facility]CL[facility] [id number] [id number] [id number] [place] CT CHEST WO IVCONon 11-07-[address] CHE[facility] WO IVCON [facility] CNPNon 10-30-2023 CNPN Normal [facility] CNPNon 10-09-2023 CNPN Normal [facility] MG Breast Screeningon 2022 IMPRESSION: BENIGN FINDING There is no mammographic evidence of malignancy. A 1 year screening mammogram is recommended. Bren Villanueva M.D., ch/helen:10/04/2023 15:24:20 [employer] E[employer] Developer(s): Tomeka Mark [facility] letter sent: Normal over 40 Mammogram BI-RADS: 2 Benign finding Multiple national specialty organizations have released breast cancer screening guidelines for women at average risk for developing breast cancer - guidelines that are based on both evidence and opinion, yet differ on when to start and how often to screen for breast cancer. With representation from Breast Imaging, Internal Medicine, Women's Health, Family Medicine, and Medical/Surgical Oncology, the [facility] has carefully reviewed the data and reached the following consensus: 1) All women should engage in shared decision-making with their providers to decide when to start and how often to screen; 2) All women should have the opportunity to start screening mammography at age 40; 3) For women ages 45-55, we recommend annual screening mammograms; 4) For women ages 55 and over, we support both the transition from an annual to a biennial interval if this aligns more with patient's values and preferences, or continuation with annual screening; 5) All women should discuss with their providers when to stop screening mammograms. [employer] Coreroom: Helen Transcribe Date/Time: Oct 03 2023 3:44P Dictated by: BREN VILLANUEVA MD This examination was interpreted and the report reviewed and electronically signed by: BREN VILLANUEVA MD on Oct 04 2023 3:24PM [facility] DIVISION OF RADIOLOGY * * *Final Report* * * DATE OF EXAM: Oct 03 2023 3:56PM [facility] SCREENING / PROCEDURE REASON: Encounter for screening mammogram for malignant neoplasm of breast * * * * Physician Interpretation * * * * RESULT: #[id number] - GYPSY SCREENING BILATERAL DIGITAL SCREENING MAMMOGRAM WITH CAD: 10/03/2023 HISTORY: Encounter For Screening Mammogram For Malignant Neoplasm Of Breast / Screening Mammogram-Patient reports NO symptoms. /priors available for comparison. RESULT: TECHNIQUE: The study was acquired using full field digital technology and interpreted from soft copy. Current study was also evaluated with a Computer Aided Detection (CAD). Comparison is made to exams dated: 09/02/2022 mammogram, 08/31/2021 mammogram, 08/27/2020 mammogram - [facility], 08/21/2019 mammogram - [facility], and 08/17/2018 mammogram - [facility]. The breasts are almost entirely fatty. There are benign post operative findings in both breasts. No significant masses, calcifications, or other findings are seen in either breast. There has been no significant interval change. DIVISION OF RADIOLOGY Provider, [facility] - 10/04/2023 * * *Final Report* * * DATE OF EXAM: Oct 03 2023 3:56PM [facility] SCREENING / PROCEDURE REASON: Encounter for screening mammogram for malignant neoplasm of breast * * * * Physician Interpretation * * * * RESULT: #[id number] - GYPSY SCREENING BILATERAL DIGITAL SCREENING MAMMOGRAM WITH CAD: 10/03/2023 HISTORY: Encounter For Screening Mammogram For Malignant Neoplasm Of Breast / Screening Mammogram-Patient reports NO symptoms. /priors available for comparison. RESULT: TECHNIQUE: The study was acquired using full field digital technology and interpreted from soft copy. Current study was also evaluated with a Computer Aided Detection (CAD). Comparison is made to exams dated: 09/02/2022 mammogram, 08/31/2021 mammogram, 08/27/2020 mammogram - [facility], 08/21/2019 mammogram - [facility], and 08/17/2018 mammogram - [facility]. The breasts are almost entirely fatty. There are benign post operative findings in both breasts. No significant masses, calcifications, or other findings are seen in either breast. There has been no significant interval change. IMPRESSION IMPRESSION: BENIGN FINDING There is no mammographic evidence of malignancy. A 1 year screening mammogram is recommended. Bren Villanueva M.D., ch/helen:10/04/2023 15:24:20 [employer] E[employer] Developer(s): Tomeka Mark, [facility] letter sent: Normal over 40 Mammogram BI-RADS: 2 Benign finding Multiple national specialty organizations have released breast cancer screening guidelines for women at average risk for developing breast cancer - guidelines that are based on both evidence and opinion, yet differ on when to start and how often to screen for breast cancer. With representation from Breast Imaging, Internal Medicine, Women's [facility], Family Medicine, and Medical/Surgical Oncology, the [facility] has carefully reviewed the data and reached the following consensus: 1) All women should engage in shared decision-making with their providers to decide when to start and how often to screen; 2) All women should have the opportunity to start screening mammography at age 40; 3) For women ages 45-55, we recommend annual screening mammograms; 4) For women ages 55 and over, we support both the transition from an annual to a biennial interval if this aligns more with patient's values and preferences, or continuation with annual screening; 5) All women should discuss with their providers when to stop screening mammograms. [employer] Coreroom: Helen Transcribe Date/Time: Oct 03 2023 3:44P Dictated by: BREN VILLANUEVA MD This examination was interpreted and the report reviewed and electronically signed by: BREN VILLANUEVA MD on Oct 04 2023 3:24PM EST [facility] MG Breast ScreeningOrdered B y: [facility] Provider on 10-04-2023 [facility] CNOVon 10-03-2023 CNOV Normal [facility] GYPSY SCREENINGon 10-03-2023 GYPSY SCREENING Normal [facility] MG Breast Screeningon 2022 Radiology Study observation (narrative) [facility] BD DXA - AXIAL SKELETONon BD DXA - AXIAL SKELETON Normal [facility] CNPNon 08-31-2023 CNPN Normal [facility] CBC W Auto Differential pane l (Bld)on 08-30-2023 Basophils (Bld) [#/Vol] 0.04 10*3/uL <0.11 k/uL [facility] Basophils/100 WBC (Bld) 0.4 % [facility] Differential cell count method Nom (Bld) Auto [facility] Eosinophils (Bld) [#/Vol] 0.17 10*3/uL <0.46 k/uL [facility] Eosinophils/100 WBC (Bld) 1.8 % [facility] Erythrocyte distribution width (RBC) [Ratio] 13.5 % 11.5 - 15.0 % [facility] Hematocrit (Bld) [Volume fraction] 48.9 % High 36.0 - 46.0 % [facility] Hemoglobin (Bld) [Mass/Vol] 16.1 g/dL High 11.5 - 15.5 g/dL [facility] Immature granulocytes (Bld) [#/Vol] 0.03 10*3/uL <0.10 k/uL [facility] Immature granulocytes/100 WBC (Bld) 0.3 % [facility] Lymphocytes (Bld) [#/Vol] 2.16 10*3/uL 1.00 - 4.00 k/uL [facility] Lymphocytes/100 WBC (Bld) 23.4 % [facility] MCH (RBC) [Entitic mass] 31.3 pg 26.0 - 34.0 pg [facility] MCHC (RBC) [Mass/Vol] 32.9 g/dL 30.5 - 36.0 g/dL [facility] MCV (RBC) [Entitic vol] 95.0 fL 80.0 - 100.0 fL [facility] Monocytes (Bld) [#/Vol] 0.58 10*3/uL <0.87 k/uL [facility] Monocytes/100 WBC (Bld) 6.3 % [facility] Neutrophils (Bld) [#/Vol] 6.27 10*3/uL 1.45 - 7.50 k/uL [facility] Neutrophils/100 WBC (Bld) 67.8 % [facility] Nucleated RBC (Bld) [#/Vol] <0.01 k/uL [facility] Nucleated RBC/100 WBC (Bld) [Ratio] 0.0 /100 WBC [facility] Platelet mean volume (Bld) [Entitic vol] 13.0 fL High 9.0 - 12.7 fL [facility] Platelets (Bld) [#/Vol] 174 10*3/uL 150 - 400 k/uL [facility] RBC (Bld) [#/Vol] 5.15 10*6/uL 3.90 - 5.2 0 m/uL [facility] WBC (Bld) [#/Vol] 9.25 10*3/uL 3.70 - 11. 00 k/uL [facility] Basophils (Bld) [#/Vol] 0.04 10*3/uL Normal <0.11 [facility] Comment on above: Order Comment: Speci men Type: BLOOD SPECIMENOrdering Facility: [facility] Address: [address] [place] [address] Performed By: #### 5 7021-8 ####[facility]CL[facility] [id number] [place] [address] [place] Basophils/100 WBC (Bld) 0.4 % Normal [facility] Comment on above: Order Comment: Speci men Type: BLOOD SPECIMENOrdering Facility: [facility] Address: [address] [place] [address] Performed By: #### 5 7021-8 ####[facility]CL[facility] [id number] [place] [address] [place] Differential cell count method Nom (Bld) Auto Normal [facility] Comment on above: Order Comment: Speci men Type: BLOOD SPECIMENOrdering Facility: [facility] Address: [address] [place] [address] Performed By: #### 5 7021-8 ####[facility]IA [id number] [place] [address] [place] Eosinophils (Bld) [#/Vol] 0.17 10*3/uL Normal <0.46 [facility] Comment on above: Order Comment: Speci men Type: BLOOD SPECIMENOrdering Facility: [facility] Address: [address] [place] [address] Performed By: #### 5 7021-8 ####[facility]CL[facility] [id number] [place] [address] [place] Eosinophils/100 WBC (Bld) 1.8 % Normal [facility] Comment on above: Order Comment: Speci men Type: BLOOD SPECIMENOrdering Facility: [facility] Address: [address] [place] [address] Performed By: #### 5 7021-8 ####[facility]CL[facility] [id number] [place] [address] [place] Erythrocyte distribution width (RBC) [Ratio] 13.5 % Normal 11.5-15.0 [facility] Comment on above: Order Comment: Speci men Type: BLOOD SPECIMENOrdering Facility: [facility] Address: [address] [place] [address] Performed By: #### 5 7021-8 ####[facility]IA [id number] [place] [address] [place] Hematocrit (Bld) [Volume fraction] 48.9 % High 36.0-46.0 [facility] Comment on above: Order Comment: Speci men Type: BLOOD SPECIMENOrdering Facility: [facility] Address: [address] [place] [address] Performed By: #### 5 7021-8 ####[facility]IA [id number] [place] [address] [place] Hemoglobin (Bld) [Mass/Vol] 16.1 g/dL High 11.5-15.5 [facility] Comment on above: Order Comment: Speci men Type: BLOOD SPECIMENOrdering Facility: [facility] Address: [address] [place] [address] Performed By: #### 5 7021-8 ####[facility]IA [id number] [id number] [address] [place] Immature granulocytes (Bld) [#/Vol] 0.03 10*3/uL Normal <0.10 [facility] Comment on above: Order Comment: Speci men Type: BLOOD SPECIMENOrdering Facility: [facility] Address: [address] [place] [address] Performed By: #### 5 7021-8 ####[facility]CL[facility] [id number] [place] [address] [place] Immature granulocytes/100 WBC (Bld) 0.3 % Normal [facility] Comment on above: Order Comment: Speci men Type: BLOOD SPECIMENOrdering Facility: [facility] Address: [address] [place] [address] Performed By: #### 5 7021-8 ####[facility]CLIA [id number] [place] [address] [place] Lymphocytes (Bld) [#/Vol] 2.16 10*3/uL Normal 1.00-4.00 [facility] Comment on above: Order Comment: Speci men Type: BLOOD SPECIMENOrdering Facility: [facility] Address: [address] [place] [address] Performed By: #### 5 7021-8 ####[facility]CL[facility] [id number] [place] [address] [place] Lymphocytes/100 WBC (Bld) 23.4 % Normal [facility] Comment on above: Order Comment: Speci men Type: BLOOD SPECIMENOrdering Facility: [facility] Address: [address] [place] [address] Performed By: #### 5 7021-8 ####[facility]CL[facility] [id number] [place] [address] [place] MCH (RBC) [Entitic mass] 31.3 pg Normal 26.0-34.0 [facility] Comment on above: Order Comment: Speci men Type: BLOOD SPECIMENOrdering Facility: [facility] Address: [address] [place] [address] Performed By: #### 5 7021-8 ####[facility]CL[facility] [id number] [place] [address] [place] MCHC (RBC) [Mass/Vol] 32.9 g/dL Normal 30.5-36.0 [facility] Comment on above: Order Comment: Speci men Type: BLOOD SPECIMENOrdering Facility: [facility] Address: [address] [place] [address] Performed By: #### 5 7021-8 ####[facility]CL[facility] [id number] [place] [address] [place] MCV (RBC) [Entitic vol] 95.0 fL Normal 80.0-100.0 [facility] Comment on above: Order Comment: Speci men Type: BLOOD SPECIMENOrdering Facility: [facility] Address: [address] [place] [address] Performed By: #### 5 7021-8 ####[facility]CL[facility] [id number] [place] [address] [place] Monocytes (Bld) [#/Vol] 0.58 10*3/uL Normal <0.87 [facility] Comment on above: Order Comment: Speci men Type: BLOOD SPECIMENOrdering Facility: [facility] Address: [address] [place] [address] Performed By: #### 5 7021-8 ####[facility] LABCLIA [id number] [place] [address] [place] Monocytes/100 WBC (Bld) 6.3 % Normal [facility] Comment on above: Order Comment: Speci men Type: BLOOD SPECIMENOrdering Facility: [facility] Address: [address] [place] [address] Performed By: #### 5 7021-8 ####[facility] LABCLIA [id number] [place] [address] [place] Neutrophils (Bld) [#/Vol] 6.27 10*3/uL Normal 1.45-7.50 [facility] Comment on above: Order Comment: Speci men Type: BLOOD SPECIMENOrdering Facility: [facility] Address: [address] [place] [address] Performed By: #### 5 7021-8 ####[facility] LABCLIA [id number] [place] [address] [place] Neutrophils/100 WBC (Bld) 67.8 % Normal [facility] Comment on above: Order Comment: Speci men Type: BLOOD SPECIMENOrdering Facility: [facility] Address: [address] [place] [address] Performed By: #### 5 7021-8 ####[facility] LABCLIA [id number] [place] [address] [place] Nucleated RBC (Bld) [#/Vol] 10*3/uL Normal <0.01 [facility] Comment on above: Order Comment: Speci men Type: BLOOD SPECIMENOrdering Facility: [facility] Address: [address] [place] [address] Performed By: #### 5 7021-8 ####[facility] LABCLIA [id number] [place] [address] [place] Nucleated RBC/100 WBC (Bld) [Ratio] 0.0 /100 WBC Normal [facility] Comment on above: Order Comment: Speci men Type: BLOOD SPECIMENOrdering Facility: [facility] Address: [address] [place] [address] Performed By: #### 5 7021-8 ####[facility] LABCLIA [id number] [place] [address] [place] Platelet mean volume (Bld) [Entitic vol] 13.0 fL High 9.0-12.7 [facility] Comment on above: Order Comment: Speci men Type: BLOOD SPECIMENOrdering Facility: [facility] Address: [address] [place] [id number] Performed By: #### 5 7021-8 ####[facility] LABCLIA [id number] [place] [id number] [place] Platelets (Bld) [#/Vol] 174 10*3/uL Normal 150-400 [facility] Comment on above: Order Comment: Speci men Type: BLOOD SPECIMENOrdering Facility: [facility] Address: [address] [place] [address] Performed By: #### 5 7021-8 ####[facility] LABIA [id number] [place] [address] [place] RBC (Bld) [#/Vol] 5.15 10*6/uL Normal 3.90-5.20 [facility] Comment on above: Order Comment: Speci men Type: BLOOD SPECIMENOrdering Facility: [facility] Address: [address] [place] [address] Performed By: #### 5 7021-8 ####[facility] LABIA [id number] [place] [id number] [place] WBC (Bld) [#/Vol] 9.25 10*3/uL Normal 3.70-11.00 [facility] Comment on above: Order Comment: Speci men Type: BLOOD SPECIMENOrdering Facility: [facility] Address: [address] [place] [address] Performed By: #### 5 7021-8 ####[facility] LABIA [id number] [place] [id number] [place] CNOVon 08-30-2023 CNOV Normal [facility] STREP A MOLECULAR (POC)on Procedural Control Valid [facility] Strep A (POCT) Negative Negative [facility] CT CHEST WO IVCONon 11-03-20 [facility] GYPSY SCREENINGon 09-02-2022 [facility] [id number] 08-10-2020 COVID-19 Int Normal [facility] ([place]) Comment on above: Order Comment: Alisia simpson @[phone] [facility] Result Comment: Nega tive results do not preclude SARS-CoV-2 infection and should not be used as the sole basis for patient management decisions. Negative results must be combined with clinical observations, patient history, and epidemiological information. There is a risk of false negative values resulting from improperly collected, transported, or handled specimens. There is a risk of false negative values due to the presence of sequence variants in the pathogen targets of the assay, procedural errors, amplification inhibitors in specimens, or inadequate numbers of organisms for amplification. [employer] SARS-CoV-2 Assay is a Real-Time reverse-transcriptase polymerase chain reaction (RT-PCR) based qualitative in vitro diagnostic test intended for the qualitative detection of nucleic acid from the SARS-CoV-2 in nasopharyngeal swab specimens collected from individuals suspected of COVID-19 by their healthcare provider. Testing is limited to laboratories certified under the Clinical Laboratory Improvement Amendments of 1988 (CLIA), 42 U.S.C. ?263a, to perform moderate and high complexity tests. COVID-19 Int Performed By: #### C OVD19 #### [address] [address] COVID-19 Result Negative Normal Negative [facility] ([place]) Comment on above: Order Comment: Facelestine simpson @[phone] [facility] Performed By: #### C OVD19 #### [address] [address] Date of Onset 20200810 [facility] ([place]) Comment on above: Order Comment: Fax r esult @[phone] [facility] Performed By: #### C OVD19 #### [address] [address] Employed in Healthcare No Normal [facility] ([place] Comment on above: Order Comment: Fax r esult @[phone] [facility] Performed By: #### C OVD19 #### [address] [address] First Test Unknown Normal [facility] ([place] Comment on above: Order Comment: Fax r esult @[phone] [facility] Performed By: #### C OVD19 #### [place] [address] Hospitalized No [facility] ([place]) Comment on above: Order Comment: Fax r esult @[phone] [facility] Performed By: #### C OVD19 #### [place] [id number] ICU No [facility] ([place] Comment on above: Order Comment: Fax r esult @[phone] [facility] Performed By: #### C OVD19 #### [place] [address] Not [facility] ([place] Comment on above: Order Comment: Fax r esult @[phone] [facility] Performed By: #### C OVD19 #### [place] [address] Resides in Congregate Care Setting No [facility] [place] Comment on above: Order Comment: Fax r esult @[phone] [facility] Performed By: #### C OVD19 #### [place] [address] Symptomatic as Defined by CDC No [facility] ([place] Comment on above: Order Comment: Fax r esult @[phone] [facility] Performed By: #### C OVD19 #### [place] [address] Office Visit: UC: sinus infe ction/coughon 04-17-2017 Documentation of current medications (procedure) Done Invalid Interpretation Code [facility] Work Phone: Fall risk assessment No [facility] Work Phone: Tobacco smoking status NHIS Never smoker [facility] Work Phone: Tobacco use CPHS Never smoker Invalid Interpretation Code [facility] Work Phone: Vital Signs Date Time Vital Sign Value Performing Clinician Facility 08-21-2024 08:52-0400 Diastolic blood pressure 78 mm[Hg] Briannajase Patel PA-C Work Phone: [facility] Comment on above: average with machine 08-21-2024 08:52-0400 Heart rate 68 /min Briannajase Patel PA-C Work Phone: [facility] 08-21-2024 08:52-0400 Systolic blood pressure 158 mm[Hg] Briannadinesh Patel PA-C Work Phone: [facility] Comment on above: average with machine 08-21-2024 08:35-0400 Body mass index (BMI) [Ratio] 33.03 kg/m2 Briannajase Patel PA-C Work Phone: [facility] 08-21-2024 08:35-0400 Body temperature 97.2 [degF] Briannajase Patel PA-C Work Phone: [facility] 08-21-2024 08:35-0400 Body weight 68.49 kg Briannajase Patel PA-C Work Phone: [facility] 08-21-2024 08:35-0400 Respiratory rate 18 /min Briannajase Patel PA-C Work Phone: [facility] 08-21-2024 08:35-0400 SaO2% (BldA) [Mass fraction] 95 % Briannajase Patel PA-C Work Phone: [facility] 08-13-2024 10:06-0400 Diastolic blood pressure 68 mm[Hg] Marcelo Acosta MD Work Phone: [facility] 08-13-2024 10:06-0400 Systolic blood pressure 148 mm[Hg] Marcelo Acosta MD Work Phone: [facility] 08-13-2024 09:52-0400 Body mass index (BMI) [Ratio] 33.25 kg/m2 Marcelo Acosta MD Work Phone: [facility] 08-13-2024 09:52-0400 Body weight 68.95 kg Marcelo Acosta MD Work Phone: [facility] 08-13-2024 09:52-0400 Heart rate 76 /min Marcelo Acosta MD Work Phone: [facility] 08-13-2024 09:52-0400 Respiratory rate 18 /min Marcelo Acosta MD Work Phone: [facility] 08-06-2024 10:19-0400 Diastolic blood pressure 72 mm[Hg] Brianna Patel PA-C Work Phone: [facility] Comment on above: recheck with machine 08-06-2024 10:19-0400 Heart rate 55 /min Brianna Patel PA-C Work Phone: [facility] 08-06-2024 10:19-0400 Systolic blood pressure 133 mm[Hg] Brianna Patel PA-C Work Phone: [facility] Comment on above: recheck with machine 08-06-2024 09:28-0400 Body mass index (BMI) [Ratio] 33.69 kg/m2 Brianna Patel PA-C Work Phone: [facility] 08-06-2024 09:28-0400 Body temperature 97.2 [degF] Brianna Patel PA-C Work Phone: [facility] 08-06-2024 09:28-0400 Body weight 69.85 kg Brianna Patel PA-C Work Phone: [facility] 08-06-2024 09:28-0400 Respiratory rate 18 /min Brianna Patel PA-C Work Phone: [facility] 08-06-2024 09:28-0400 SaO2% (BldA) [Mass fraction] 97 % Brianna Patel PA-C Work Phone: [facility] 07-29-2024 10:03-0400 Body mass index (BMI) [Ratio] 33.71 kg/m2 Marcelo Mckeon APRN.TSA SCREENER Work Phone: [facility] 07-29-2024 10:03-0400 Body temperature 98.2 [degF] Marcelo Mckeon APRN.TSA SCREENER Work Phone: [facility] 07-29-2024 10:03-0400 Body weight 69.9 kg Marcelo [facility] LINUX SYSTEMS ENGINEER.TSA SCREENER Work Phone: [facility] 07-29-2024 10:03-0400 Diastolic blood pressure 72 mm[Hg] [facility] LINUX SYSTEMS ENGINEER.TSA SCREENER Work Phone: [facility] 07-29-2024 10:03-0400 Heart rate 70 /min Marcelo [place] LINUX SYSTEMS ENGINEER.TSA SCREENER Work Phone: [facility] 07-29-2024 10:03-0400 Respiratory rate 16 /min [facility] LINUX SYSTEMS ENGINEER.TSA SCREENER Work Phone: [facility] 07-29-2024 10:03-0400 SaO2% (BldA) [Mass fraction] 95 % Marcelo [facility] LINUX SYSTEMS ENGINEER.TSA SCREENER Work Phone: [facility] 07-29-2024 10:03-0400 Systolic blood pressure 124 mm[Hg] [facility] LINUX SYSTEMS ENGINEER.TSA SCREENER Work Phone: [facility] 04-11-2024 11:34-0400 Body mass index (BMI) [Ratio] 33.91 kg/m2 Brianna Patel PA-C Work Phone: [facility] 04-11-2024 11:34-0400 Body temperature 99 [degF] Brianna Patel PA-C Work Phone: [facility] 04-11-2024 11:34-0400 Body weight 70.31 kg Brianna Patel PA-C Work Phone: [facility] 04-11-2024 11:34-0400 Diastolic blood pressure 77 mm[Hg] Brianna Patel PA-C Work Phone: [facility] 04-11-2024 11:34-0400 Heart rate 87 /min Brianna Patel PA-C Work Phone: [facility] 04-11-2024 11:34-0400 Respiratory rate 18 /min Brianna Patel PA-C Work Phone: [facility] 04-11-2024 11:34-0400 SaO2% (BldA) [Mass fraction] 95 % Brianna Patel PA-C Work Phone: [facility] 04-11-2024 11:34-0400 Systolic blood pressure 144 mm[Hg] Brianna Patel PA-C Work Phone: [facility] 03-14-2024 10:01-0400 Diastolic blood pressure 68 mm[Hg] Brianna Patel PA-C Work Phone: [facility] 03-14-2024 10:01-0400 Systolic blood pressure 138 mm[Hg] Brianna Patel PA-C Work Phone: [facility] 03-14-2024 09:48-0400 Body mass index (BMI) [Ratio] 35 kg/m2 Brianna Patel PA-C Work Phone: [facility] 03-14-2024 09:48-0400 Body temperature 98.71 [degF] Brianna Patel PA-C Work Phone: [facility] 03-14-2024 09:48-0400 Body weight 72.58 kg Brianna Patel PA-C Work Phone: [facility] 03-14-2024 09:48-0400 Heart rate 68 /min Brianna Patel PA-C Work Phone: [facility] 03-14-2024 09:48-0400 Respiratory rate 24 /min Brainna Patel PA-C Work Phone: [facility] 03-14-2024 09:48-0400 SaO2% (BldA) [Mass fraction] 94 % Brianna Patel PA-C Work Phone: [facility] 02-29-2024 11:41-0400 Diastolic blood pressure 60 mm[Hg] Brianna Patel PA-C Work Phone: [facility] 02-29-2024 11:41-0400 Systolic blood pressure 170 mm[Hg] Brianna Patel PA-C Work Phone: [facility] 02-29-2024 11:40-0400 Heart rate 50 /min Brianna Patel PA-C Work Phone: [facility] 02-29-2024 10:27-0400 Body height 144 cm Brianna Patel PA-C Work Phone: [facility] 02-29-2024 10:27-0400 Body weight 73.03 kg Brianna Patel PA-C Work Phone: [facility] 02-29-2024 10:27-0400 Respiratory rate 18 /min Brianna Patel PA-C Work Phone: [facility] 02-29-2024 10:27-0400 SaO2% (BldA) [Mass fraction] 95 % Brianna Patel PA-C Work Phone: [facility] 01-29-2024 12:58-0400 Body temperature 97.5 [degF] Thelma Santana LINUX SYSTEMS ENGINEER.TSA SCREENER Work Phone: [facility] 01-29-2024 12:58-0400 Body weight 74.2 kg Thelma Santana LINUX SYSTEMS ENGINEER.TSA SCREENER Work Phone: [facility] 01-29-2024 12:58-0400 Diastolic blood pressure 82 mm[Hg] Thelma Santana LINUX SYSTEMS ENGINEER.TSA SCREENER Work Phone: [facility] 01-29-2024 12:58-0400 Heart rate 60 /min Thelma Santana LINUX SYSTEMS ENGINEER.TSA SCREENER Work Phone: [facility] 01-29-2024 12:58-0400 Respiratory rate 16 /min Thelma Santana LINUX SYSTEMS ENGINEER.TSA SCREENER Work Phone: [facility] 01-29-2024 12:58-0400 SaO2% (BldA) [Mass fraction] 95 % Thelma Santana LINUX SYSTEMS ENGINEER.TSA SCREENER Work Phone: [facility] 01-29-2024 12:58-0400 Systolic blood pressure 144 mm[Hg] Thelma Santana LINUX SYSTEMS ENGINEER.TSA SCREENER Work Phone: [facility] 12-25-2023 10:48-0500 Diastolic blood pressure 60 mm[Hg] Ketan Saha MD Work Phone: [facility] 12-25-2023 10:48-0500 Heart rate 58 /min Ketan Saha MD Work Phone: [facility] 12-25-2023 10:48-0500 Systolic blood pressure 167 mm[Hg] Ketan Saha MD Work Phone: [facility] 10-03-2023 16:02-0500 Body height 142.2 cm Taylor Mahmood APRN.TSA SCREENER Work Phone: [facility] 10-03-2023 16:02-0500 Body weight 74.21 kg Taylor Mahmood APRN.TSA SCREENER Work Phone: [facility] 10-03-2023 16:02-0500 Diastolic blood pressure 76 mm[Hg] Taylor Mahmood APRN.TSA SCREENER Work Phone: [facility] 10-03-2023 16:02-0500 Systolic blood pressure 128 mm[Hg] Taylor Mahmood APRN.TSA SCREENER Work Phone: [facility] 08-30-2023 09:52-0400 Body weight 73.48 kg Marcelo Acosta MD Work Phone: [facility] 08-30-2023 09:52-0400 Diastolic blood pressure 74 mm[Hg] Marcelo Acosta MD Work Phone: [facility] 08-30-2023 09:52-0400 Heart rate 64 /min Marcelo Acosta MD Work Phone: [facility] 08-30-2023 09:52-0400 Respiratory rate 18 /min Marcelo Acosta MD Work Phone: [facility] 08-30-2023 09:52-0400 Systolic blood pressure 136 mm[Hg] Marcelo Acosta MD Work Phone: [facility] 02-27-2023 09:06-0400 Body height 142 cm Brianna Patel PA-C Work Phone: [facility] 02-27-2023 09:06-0400 Body temperature 98.6 [degF] Brianna Patel PA-C Work Phone: [facility] 02-27-2023 09:06-0400 Body weight 73.03 kg Brianna Patel PA-C Work Phone: [facility] 02-27-2023 09:06-0400 Diastolic blood pressure 70 mm[Hg] Brianna Patel PA-C Work Phone: [facility] 02-27-2023 09:06-0400 Heart rate 74 /min Brianna Patel PA-C Work Phone: [facility] 02-27-2023 09:06-0400 Respiratory rate 18 /min Brianna Patel PA-C Work Phone: [facility] 02-27-2023 09:06-0400 Systolic blood pressure 120 mm[Hg] Brianna Patel PA-C Work Phone: [facility] 12-30-2022 10:50-0500 Body temperature 98.1 [degF] Boy Ronnie LINUX SYSTEMS ENGINEER.TSA SCREENER Work Phone: [facility] 12-30-2022 10:50-0500 Body weight 73.75 kg Boy Trujillo LINUX SYSTEMS ENGINEER.TSA SCREENER Work Phone: [facility] 12-30-2022 10:50-0500 Diastolic blood pressure 70 mm[Hg] Boy Trujillo LINUX SYSTEMS ENGINEER.TSA SCREENER Work Phone: [facility] 12-30-2022 10:50-0500 Heart rate 88 /min Boy Ronnie LINUX SYSTEMS ENGINEER.TSA SCREENER Work Phone: [facility] 12-30-2022 10:50-0500 Respiratory rate 16 /min Boy Ronnie LINUX SYSTEMS ENGINEER.TSA SCREENER Work Phone: [facility] 12-30-2022 10:50-0500 SaO2% (BldA) [Mass fraction] 97 % Boy Ronnie LINUX SYSTEMS ENGINEER.TSA SCREENER Work Phone: [facility] 12-30-2022 10:50-0500 Systolic blood pressure 146 mm[Hg] Boy King GISSELLE Work Phone: [facility] 12-26-2022 14:16-0500 Diastolic blood pressure 62 mm[Hg] Ketan Saha MD Work Phone: [facility] 12-26-2022 14:16-0500 Heart rate 63 /min Ketan Saha MD Work Phone: [facility] 12-26-2022 14:16-0500 Systolic blood pressure 152 mm[Hg] Ketan Saha MD Work Phone: [facility] 11-10-2022 09:02-0500 Body height 144.8 cm Maureen Marco PA-C Work Phone: [facility] 11-10-2022 09:02-0500 Body temperature 97.11 [degF] Maureen Marco PA-C Work Phone: [facility] 11-10-2022 09:02-0500 Body weight 74.39 kg Maureen Marco PA-C Work Phone: [facility] 11-10-2022 09:02-0500 Diastolic blood pressure 74 mm[Hg] Maureen Marco PA-C Work Phone: [facility] 11-10-2022 09:02-0500 Heart rate 74 /min Maureen Marco PA-C Work Phone: [facility] 11-10-2022 09:02-0500 Respiratory rate 16 /min Maureen Marco PA-C Work Phone: [facility] 11-10-2022 09:02-0500 SaO2% (BldA) [Mass fraction] 97 % Maureen Marco PA-C Work Phone: [facility] 11-10-2022 09:02-0500 Systolic blood pressure 142 mm[Hg] Maureen Marco PA-C Work Phone: [facility] 10-31-2022 10:23-0500 Body temperature 100.99 [degF] Radha Jett LINUX SYSTEMS ENGINEER.TSA SCREENER Work Phone: [facility] 10-31-2022 10:23-0500 Body weight 74.84 kg Radha Jett LINUX SYSTEMS ENGINEER.TSA SCREENER Work Phone: [facility] 10-31-2022 10:23-0500 Diastolic blood pressure 78 mm[Hg] Radha Jett LINUX SYSTEMS ENGINEER.TSA SCREENER Work Phone: [facility] 10-31-2022 10:23-0500 Heart rate 97 /min Radha Jett LINUX SYSTEMS ENGINEER.TSA SCREENER Work Phone: [facility] 10-31-2022 10:23-0500 Respiratory rate 16 /min Radha Jett LINUX SYSTEMS ENGINEER.TSA SCREENER Work Phone: [facility] 10-31-2022 10:23-0500 SaO2% (BldA) [Mass fraction] 96 % Radha Jett LINUX SYSTEMS ENGINEER.TSA SCREENER Work Phone: [facility] 10-31-2022 10:23-0500 Systolic blood pressure 140 mm[Hg] Radha Jett LINUX SYSTEMS ENGINEER.TSA SCREENER Work Phone: [facility] 10-10-2022 11:12-0500 Body temperature 98.1 [degF] Orlando Galvan MD Work Phone: [facility] 10-10-2022 11:12-0500 Body weight 74.84 kg Orlando Galvan MD Work Phone: [facility] 10-10-2022 11:12-0500 Diastolic blood pressure 80 mm[Hg] Orlando Galvan MD Work Phone: [facility] 10-10-2022 11:12-0500 Heart rate 88 /min Orlando Galvan MD Work Phone: [facility] 10-10-2022 11:12-0500 Respiratory rate 16 /min Orlando Galvan MD Work Phone: [facility] 10-10-2022 11:12-0500 SaO2% (BldA) [Mass fraction] 96 % Orlando Galvan MD Work Phone: [facility] 10-10-2022 11:12-0500 Systolic blood pressure 144 mm[Hg] Orlando Galvan MD Work Phone: [facility] 10-03-2022 07:53-0500 Body temperature 97.59 [degF] Brianna Patel PA-C Work Phone: [facility] 10-03-2022 07:53-0500 Body weight 74.84 kg Brianna Patel PA-C Work Phone: [facility] 10-03-2022 07:53-0500 Diastolic blood pressure 68 mm[Hg] Brianna Patel PA-C Work Phone: [facility] 10-03-2022 07:53-0500 Heart rate 72 /min Brianna Patel PA-C Work Phone: [facility] 10-03-2022 07:53-0500 Respiratory rate 18 /min Brianna Patel PA-C Work Phone: [facility] 10-03-2022 07:53-0500 Systolic blood pressure 130 mm[Hg] Brianna Patel PA-C Work Phone: [facility] 09-08-2022 10:56-0400 Body height 139.7 cm Radha Zurawick LINUX SYSTEMS ENGINEER.TSA SCREENER Work Phone: [facility] 09-08-2022 10:56-0400 Body weight 76.2 kg Radha Zurawick LINUX SYSTEMS ENGINEER.TSA SCREENER Work Phone: [facility] 09-08-2022 10:56-0400 Diastolic blood pressure 64 mm[Hg] Radha Zurawick LINUX SYSTEMS ENGINEER.TSA SCREENER Work Phone: [facility] 09-08-2022 10:56-0400 Heart rate 79 /min Radha Zurawick LINUX SYSTEMS ENGINEER.TSA SCREENER Work Phone: [facility] 09-08-2022 10:56-0400 SaO2% (BldA) [Mass fraction] 96 % Radha Zurawick LINUX SYSTEMS ENGINEER.TSA SCREENER Work Phone: [facility] 09-08-2022 10:56-0400 Systolic blood pressure 154 mm[Hg] Radha Marcelo LINUX SYSTEMS ENGINEER.TSA SCREENER Work Phone: [facility] 05-23-2022 15:38-0400 Body temperature 98.6 [degF] Jodie Athy PA-C Work Phone: [facility] 05-23-2022 15:38-0400 Body weight 76.66 kg Jodie Athy PA-C Work Phone: [facility] 05-23-2022 15:38-0400 Diastolic blood pressure 74 mm[Hg] Jodie Athy PA-C Work Phone: [facility] 05-23-2022 15:38-0400 Heart rate 100 /min Jodie Athy PA-C Work Phone: [facility] 05-23-2022 15:38-0400 Respiratory rate 18 /min Jodie Athy PA-C Work Phone: [facility] 05-23-2022 15:38-0400 SaO2% (BldA) [Mass fraction] 97 % Jodie Athy PA-C Work Phone: [facility] 05-23-2022 15:38-0400 Systolic blood pressure 122 mm[Hg] Jodie Athy PA-C Work Phone: [facility] 04-18-2022 10:21-0400 Body weight 76.39 kg Mitesh Perez MD Work Phone: [facility] 04-18-2022 10:21-0400 Diastolic blood pressure 64 mm[Hg] Mitesh Perez MD Work Phone: [facility] 04-18-2022 10:21-0400 Heart rate 90 /min Mitesh Perez MD Work Phone: [facility] 04-18-2022 10:21-0400 Respiratory rate 16 /min Mitesh Perez MD Work Phone: [facility] 04-18-2022 10:21-0400 SaO2% (BldA) [Mass fraction] 92 % Mitesh Perez MD Work Phone: [facility] 04-18-2022 10:21-0400 Systolic blood pressure 128 mm[Hg] Mitesh Perez MD Work Phone: [facility] 04-09-2022 14:15-0400 Body temperature 98.6 [degF] Boy Ronnie LINUX SYSTEMS ENGINEER.TSA SCREENER Work Phone: [facility] 04-09-2022 14:15-0400 Body weight 77.66 kg Boy Ronnie LINUX SYSTEMS ENGINEER.TSA SCREENER Work Phone: [facility] 04-09-2022 14:15-0400 Diastolic blood pressure 66 mm[Hg] Boy Ronnie LINUX SYSTEMS ENGINEER.TSA SCREENER Work Phone: [facility] 04-09-2022 14:15-0400 Heart rate 80 /min Boy Ronnie LINUX SYSTEMS ENGINEER.TSA SCREENER Work Phone: [facility] 04-09-2022 14:15-0400 Respiratory rate 20 /min Boy Ronnie LINUX SYSTEMS ENGINEER.TSA SCREENER Work Phone: [facility] 04-09-2022 14:15-0400 SaO2% (BldA) [Mass fraction] 96 % Boy Ronnie LINUX SYSTEMS ENGINEER.TSA SCREENER Work Phone: [facility] 04-09-2022 14:15-0400 Systolic blood pressure 142 mm[Hg] Boy Ronnie LINUX SYSTEMS ENGINEER.TSA SCREENER Work Phone: [facility] 03-31-2022 10:24-0400 Body temperature 98.4 [degF] Jodie Athy PA-C Work Phone: [facility] 03-31-2022 10:24-0400 Body weight 76.84 kg Jodie Athy PA-C Work Phone: [facility] 03-31-2022 10:24-0400 Diastolic blood pressure 80 mm[Hg] Jodie Athy PA-C Work Phone: [facility] 03-31-2022 10:24-0400 Heart rate 72 /min Jodie Athy PA-C Work Phone: [facility] 03-31-2022 10:24-0400 Respiratory rate 18 /min Jodie Athy PA-C Work Phone: [facility] 03-31-2022 10:24-0400 SaO2% (BldA) [Mass fraction] 97 % Jodie Athy PA-C Work Phone: [facility] 03-31-2022 10:24-0400 Systolic blood pressure 152 mm[Hg] Jodie Athy PA-C Work Phone: [facility] 02-23-2022 11:51-0400 Body height 142 cm Brianna Patel PA-C Work Phone: [facility] 02-23-2022 11:51-0400 Body temperature 98.4 [degF] Brianna Patel PA-C Work Phone: [facility] 02-23-2022 11:51-0400 Body weight 76.2 kg Brianna Patel PA-C Work Phone: [facility] 02-23-2022 11:51-0400 Diastolic blood pressure 80 mm[Hg] Brianna Patel PA-C Work Phone: [facility] 02-23-2022 11:51-0400 Heart rate 76 /min Brianna Patel PA-C Work Phone: [facility] 02-23-2022 11:51-0400 Respiratory rate 18 /min Brianna Patel PA-C Work Phone: [facility] 02-23-2022 11:51-0400 Systolic blood pressure 122 mm[Hg] Brianna Patel PA-C Work Phone: [facility] 04-17-2017 17:03-0400 BMI (Body Mass Index) 35.48 kg/m2 Kaelyn Meneses LPN [facility] Work Phone: 04-17-2017 17:03-0400 Body Temperature 98.9 [degF] Kaelyn Meneses LPN [facility] Work Phone: 04-17-2017 17:03-0400 Body weight 77.02 kg Kaelyn Meneses LPN [facility] Work Phone: 04-17-2017 17:03-0400 BP Diastolic 80 mm[Hg] Kaelyn Meneses LPN [facility] Work Phone: 04-17-2017 17:03-0400 BP Systolic 142 mm[Hg] Kaelyn Meneses LPN [facility] Work Phone: 04-17-2017 17:03-0400 Height 147.32 cm Kaelyn Meneses LPN [facility] Work Phone: 04-17-2017 17:03-0400 Pulse (Heart Rate) 96 /min Kaelyn Meneses LPN [facility] Work Phone: 04-17-2017 17:03-0400 Pulse Oximetry 95 % Kaelyn Mensees LPN [facility] Work Phone: 04-17-2017 17:03-0400 Respiratory Rate 16 /min Kaelyn Meneses LPN [facility] Work Phone: 04-17-2017 17:03-0400 Weight 77.02 kg Kaelyn Meneses LPN [facility] Work Phone: Encounters Encounter Date Encounter Type Care Provider Facility Start: 08-27-2024 End: 08-27-2024 ambulatory BRIANNA PATEL Facility:[facility] Start: 08-21-2024 End: 08-21-2024 ambulatory BRIANNA PATEL Facility:[facility] Start: 08-21-2024 End: 08-21-2024 Patient encounter procedure Brianna Patel PA-C Work Phone: [facility] [place] Comment on above: Essential hypertensi on with goal blood pressure less than 140/90 (Primary Dx); Recurrent UTI (urinary tract infection) Start: 08-20-2024 End: 08-21-2024 Telephone encounter Ketan Saha MD Work Phone: Vascular Surg Dept Comment on above: Patient Question Forms/letter Start: 08-15-2024 End: 08-15-2024 Telephone encounter Radha Jett APRN.CNP Work Phone: [facility] [place] Comment on above: Results Start: 08-13-2024 End: 08-14-2024 Telephone encounter Marcelo Acosta MD Work Phone: [facility] [place] Comment on above: Results Start: 08-13-2024 End: 08-13-2024 ambulatory MARCELO ACOSTA Facility:[facility] Start: 08-13-2024 End: 08-13-2024 Patient encounter procedure Marcelo Acosta MD Work Phone: [facility] [place] Comment on above: Essential hypertensi on with goal blood pressure less than 140/90 (Primary Dx); Bilateral leg edema Start: 08-12-2024 End: 08-12-2024 Chart abstracting Marcelo Acosta MD Work Phone: [facility] [place] Comment on above: Outside Imaging Start: 08-08-2024 End: 08-08-2024 Telephone encounter Brianna Patel PA-C Work Phone: [facility] [place] Comment on above: Results Start: 08-06-2024 Encounter for other preprocedural examination MAUREENESTHER WEATHERS [facility] Start: 08-06-2024 End: 08-06-2024 ambulatory MARCELO ACOSTA Facility:[facility] Start: 08-06-2024 End: 08-06-2024 Patient encounter procedure Brianna Patel PA-C Work Phone: [facility] [place] Comment on above: Pre-op exam (Primary Dx); DDD (degenerative disc disease), lumbar; Lumbosacral radiculopathy; Essential hypertension with goal blood pressure less than 140/90; PVD (peripheral vascular disease) (HCC); Elevated hemoglobin A1c; Class 2 severe obesity due to excess calories with serious comorbidity and body mass index (BMI) of 35.0 to 35.9 in adult (HCC); 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 oxygen therapy; 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) Start: 08-06-2024 End: 08-06-2024 Preprocedural examination done Brianna Patel PA-C Work Phone: [facility] Start: 07-29-2024 End: 07-29-2024 Telephone encounter Marcelo Mckeon APRN.TSA SCREENER Work Phone: [facility] Comment on above: Results Start: 07-29-2024 End: 07-29-2024 Subsequent hospital visit by physician Xr [facility] [place] Work Phone: Radiology Comment on above: Acute pain of left k nee [M25.562] Start: 07-29-2024 End: 07-29-2024 ambulatory MARCELO ACOSTA Facility:[facility] Start: 07-29-2024 End: 07-29-2024 Office outpatient visit 15 minutes Marcelo Mckeon APRN.TSA SCREENER Work Phone: [facility] Comment on above: Acute pain of left k nee (Primary Dx) Start: 07-22-2024 End: 07-29-2024 Telephone encounter Marcelo Acosta MD Work Phone: [facility] [place] Comment on above: CARD New Patient Con sult Patient Update (Pre surgical clearance) Start: 07-19-2024 End: 07-19-2024 Chart abstracting Marcelo Acosta MD Work Phone: [facility] [place] Comment on above: Outside Ortho Start: 07-10-2024 End: 07-10-2024 Chart abstracting Marcelo Acosta MD Work Phone: [facility] [place] Comment on above: Outside Imaging Start: 06-18-2024 Refill Marcelo mao MD Work Phone: [facility] [place] Comment on above: Refill Request Start: 05-10-2024 Refill Brianna reynolds PA-C Work Phone: [facility] [place] Comment on above: Refill Request Start: 04-18-2024 End: 04-18-2024 ambulatory Ketan Dalton [facility] Physical Therapy Comment on above: Degeneration of lumb ar intervertebral disc (Primary Dx); Degeneration of lumbosacral intervertebral disc; Radiculopathy of lumbosacral region Start: 04-17-2024 ambulatory Brianna MATOSC Work Phone: [facility] [place] Comment on above: Prednisone Start: 04-12-2024 Telephone encounter Brianna glaser PA-C Work Phone: [facility] [place] Comment on above: Results Start: 04-11-2024 End: 04-11-2024 ambulatory MARCELO ACOSTA Facility:[facility] Start: 04-11-2024 End: 04-11-2024 Patient encounter procedure Brianna Patel PA-C Work Phone: [facility] [place] Comment on above: History of polymyalg ia rheumatica (Primary Dx); Myalgia Start: 03-15-2024 Refill Marcelo mao MD Work Phone: [facility] [place] Comment on above: Refill Request Start: 03-14-2024 End: 03-14-2024 ambulatory MARCELO ACOSTA Facility:[facility] Start: 03-14-2024 End: 03-14-2024 Patient encounter procedure Brianna Patel PA-C Work Phone: [facility] [place] Comment on above: Essential hypertensi on with goal blood pressure less than 140/90 (Primary Dx) Start: 02-29-2024 End: 02-29-2024 ambulatory MARCELO ACOSTA Facility:[facility] Start: 02-29-2024 End: 02-29-2024 Patient encounter procedure Brianna Patel PA-C Work Phone: [facility] [place] Comment on above: Medicare annual well ness visit, subsequent (Primary Dx); Advance directive in chart; Essential hypertension with goal blood pressure less than 140/90; Mixed hyperlipidemia; Elevated hemoglobin A1c; Gastroesophageal reflux disease without esophagitis; Degeneration of lumbar or lumbosacral intervertebral disc; Memory deficit; 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); Polyneuropathy; Restless legs; PVD (peripheral vascular disease) (HCC); Depression, unspecified depression type; Class 2 severe obesity due to excess calories with serious comorbidity and body mass index (BMI) of 35.0 to 35.9 in adult (HCC) Start: 02-26-2024 Telephone encounter Brianna glaser PA-C Work Phone: [facility] Comment on above: Results Start: 02-23-2024 End: 02-23-2024 ambulatory MARCELO ACOSTA Facility:[facility] Start: 01-31-2024 Telephone encounter Marcelo Acosta MD Work Phone: [facility] Comment on above: Release Of Medical R ecords Start: 01-29-2024 End: 01-29-2024 ambulatory MARCELO ACOSTA Facility:[facility] Start: 01-29-2024 End: 01-29-2024 Patient encounter procedure Thelma Santana APRN.CNP Work Phone: [facility] Comment on above: Sciatica, right side (Primary Dx) Start: 01-15-2024 Refill Marcelo mao MD Work Phone: [facility] Comment on above: Refill Request Start: 12-25-2023 Nursing evaluation o f patient and report Be Vidal Research Coordinator [employer] Comment on above: Research subject (Pr imary Dx) Start: 12-25-2023 Patient entered into trial Be Vidal Research Coordinator [facility] Start: 12-25-2023 End: 12-25-2023 Patient encounter procedure Ketan Saha MD Work Phone: Vascular Surg Dept Comment on above: Bilateral carotid ar shukri stenosis (Primary Dx); Mixed hyperlipidemia; PVD (peripheral vascular disease) ([facility]); 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) Start: 12-25-2023 End: 12-25-2023 ambulatory MARCELO ACOSTA Facility:[facility] Start: 12-14-2023 End: 12-14-2023 ambulatory MARCELO ACOSTA Facility:[facility] Start: 12-14-2023 End: 12-14-2023 Subsequent hospital visit by physician Mri Radio [facility] (I-Stat/1.5t) Work Phone: Radiology Comment on above: Cognitive impairment , mild, so stated [G31.84] Start: 11-22-2023 End: 11-22-2023 ambulatory MARCELO ACOSTA Facility:[facility] Start: 11-22-2023 End: 11-22-2023 ambulatory MAUREEN WEATHERS Facility:[facility] Start: 11-21-2023 End: 11-21-2023 ambulatory MARCELO Charles KARLA Facility:[facility] Start: 11-21-2023 End: 11-21-2023 ambulatory MARCELO ACOSTA Facility:[facility] Start: 11-10-2023 Chart abstracting Marcelo mallory MD Work Phone: [facility] [place] Comment on above: ER Discharge Summary (Imaging/) Start: 11-07-2023 End: 11-07-2023 ambulatory MAUREEN WEATHERS Facility:[facility] Start: 10-13-2023 Refill Brianna Bowling on PA-C Work Phone: [facility] [place] Comment on above: Refill Request Start: 10-03-2023 End: 10-03-2023 Patient encounter procedure Taylor Mahmood APRN.TSA SCREENER Work Phone: OB/Gynecology Comment on above: Encounter for routin e gynecologic examination in Medicare patient (Primary Dx); Screening mammogram for breast cancer Start: 10-03-2023 End: 10-03-2023 Patient encounter status Taylor Mahmood APRN.TSA SCREENER Work Phone: [facility] Work Phone: Start: 10-03-2023 End: 10-03-2023 ambulatory TAYLOR MAHMOOD Facility:[facility] Start: 10-03-2023 Encounter for gynecological examination (general) (routine) without abnormal findings TAYLOR MAHMOOD [facility] Start: 10-03-2023 End: 10-03-2023 Subsequent hospital visit by physician Screen Mammo [facility] Comment on above: Encounter for screen ing mammogram for malignant neoplasm of breast [Z12.31] Start: 10-02-2023 End: 10-02-2023 ambulatory Marcelo Acosta MD Work Phone: Family [facility] [place] Comment on above: New medicine Start: 10-02-2023 End: 10-02-2023 Subsequent hospital visit by physician Bone Density [facility] Work Phone: Radiology Comment on above: Osteopenia, unspecif ied location [M85.80] Start: 08-30-2023 End: 08-30-2023 ambulatory MARCELO ACOSTA Facility:[facility] Start: 08-30-2023 End: 08-30-2023 Patient encounter procedure Marcelo Acosta MD Work Phone: [facility] [place] Comment on above: Essential hypertensi on with goal blood pressure less than 140/90 (Primary Dx); Mixed hyperlipidemia; Elevated hemoglobin A1c; Gastroesophageal reflux disease without esophagitis; Depression, unspecified depression type; Bilateral carotid artery stenosis; 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); PVD (peripheral vascular disease) (HCC); Polyneuropathy; Restless legs; Polycythemia, secondary; Class 2 obesity due to excess calories without serious comorbidity with body mass index (BMI) of 36.0 to 36.9 in adult; Osteopenia, unspecified location; DDD (degenerative disc disease), cervical; Medication management Start: 08-16-2023 Telephone encounter Taylor valencia APRN.CNP Work Phone: Family [facility] [place] Comment on above: Orders Start: 07-30-2023 Refill Marcelo mao MD Work Phone: Family [facility] [place] Comment on above: Refill Request Start: 07-23-2023 Refill Briannajase Bowling on PA-C Work Phone: [facility] [place] Comment on above: Refill Request Start: 06-21-2023 ambulatory Maureen Calixto PA-C Work Phone: Pulmonary Medicine Comment on above: oxygen Start: 06-21-2023 E-mail encounter fro m caregiver Maureen Weathers PA-C Work Phone: [place] [facility] Start: 05-03-2023 Refill Brianna Bowling on PA-C Work Phone: [facility] [place] Comment on above: Refill Request Start: 04-27-2023 Refill Marcelo mao MD Work Phone: [facility] [place] Comment on above: Refill Request Start: 04-11-2023 Refill Marcelo mao MD Work Phone: [facility] [place] Comment on above: Refill Request Start: 03-22-2023 Refill Brianna reynolds PA-C Work Phone: [facility] [place] Comment on above: Refill Request Start: 03-13-2023 Refill Marcelo mao MD Work Phone: [facility] [place] Comment on above: Refill Request Start: 02-28-2023 Telephone encounter Marcelo Acosta MD Work Phone: [facility] [place] Comment on above: Results Start: 02-27-2023 End: 02-27-2023 Patient encounter procedure Brianna MATOSC Work Phone: [facility] [place] Comment on above: Medicare annual well ness visit, subsequent (Primary Dx); Advance directive in chart; Essential hypertension with goal blood pressure less than 140/90; Mixed hyperlipidemia; Elevated hemoglobin A1c; PVD (peripheral vascular disease) (HCC); 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); Bilateral carotid artery stenosis; Depression, unspecified depression type; Class 2 obesity due to excess calories without serious comorbidity with body mass index (BMI) of 36.0 to 36.9 in adult; Osteoarthritis of spine with radiculopathy, lumbosacral region; Polyneuropathy; Restless legs Start: 02-05-2023 Refill Marcelo mao MD Work Phone: [facility] [place] Comment on above: Refill Request Start: 01-18-2023 ambulatory Marcelo mao MD Work Phone: [facility] [place] Comment on above: Celecoxib Start: 01-16-2023 ambulatory Maureen Calixto PA-C Work Phone: Pulmonary Medicine Comment on above: Sleep test Start: 01-04-2023 End: 01-04-2023 Patient encounter procedure Marcelo Acosta MD Work Phone: [facility] [place] Comment on above: APPOINTMENT CANCELLE D (Primary Dx) Start: 12-30-2022 End: 12-30-2022 Patient encounter procedure Boy Trujillo APRN.TSA SCREENER Work Phone: [facility] Comment on above: Bacterial sinusitis (Primary Dx); Throat pain Start: 12-28-2022 Telephone encounter Marcelo Acosta MD Work Phone: [facility] [place] Comment on above: Insurance Authorizat ion ([employer] ) Start: 12-26-2022 End: 12-26-2022 Patient encounter procedure Ketan Saha MD Work Phone: Vascular Surg Dept Comment on above: Atherosclerosis of n ative artery of both lower extremities with intermittent claudication (HCC) (Primary Dx); Bilateral carotid artery stenosis Start: 12-20-2022 Refill Brianna Bowling on PA-C Work Phone: [facility] [place] Comment on above: Refill Request Results Start: 11-22-2022 Telephone encounter Maureen Weathers PA-C Work Phone: Pulmonary Medicine Comment on above: Patient Question Start: 11-10-2022 End: 11-10-2022 Patient encounter procedure Maureen Weathers PA-C Work Phone: Pulmonary Medicine Comment on above: Post-COVID syndrome (Primary Dx); Oxygen dependent; Lung nodules Start: 11-03-2022 End: 11-03-2022 Subsequent hospital visit by physician Ct [facility] (I-Stat) Work Phone: Cat Scan Comment on above: Lung nodules [R91.8] Start: 10-31-2022 End: 10-31-2022 Patient encounter procedure Radha Jett APRN.TSA SCREENER Work Phone: [facility] [place] Comment on above: Acute gastritis with out hemorrhage, unspecified gastritis type (Primary Dx) Atherosclerosis of n ative artery of both lower extremities with intermittent claudication (HCC) (Primary Dx); Bilateral carotid artery stenosis Start: 10-27-2022 Telephone encounter Marcelo Acosta MD Work Phone: NOC Comment on above: Appointment Start: 10-26-2022 Telephone encounter Natalie Vamshi HUANG [facility] [place] Comment on above: Imm/Inj Start: 10-26-2022 End: 10-26-2022 Nursing evaluation of patient and report Mi Nurse Work Phone: [facility] [place] Comment on above: Need for COVID-19 va ccine (Primary Dx) Start: 10-22-2022 Refill Brianna reynolds PA-C Work Phone: [facility] [place] Comment on above: Refill Request Start: 10-10-2022 End: 10-10-2022 Patient encounter procedure Orlando Galvan MD Work Phone: [facility] Comment on above: Acute otitis media, right (Primary Dx); Impacted cerumen of right ear Start: 10-03-2022 End: 10-03-2022 Patient encounter procedure Brianna MATOSC Work Phone: [facility] [place] Comment on above: Essential hypertensi on with goal blood pressure less than 140/90 (Primary Dx) Start: 09-22-2022 Refill Marcelo mao MD Work Phone: [facility] [place] Comment on above: Refill Request Start: 09-15-2022 ambulatory Radha Adryan k LINUX SYSTEMS ENGINEER.TSA SCREENER Work Phone: [facility] [place] Comment on above: Lisinipril Start: 09-08-2022 End: 09-08-2022 Patient encounter procedure Radha Mracelo LINUX SYSTEMS ENGINEER.TSA SCREENER Work Phone: [facility] [place] Comment on above: Essential hypertensi on with goal blood pressure less than 140/90 (Primary Dx) Start: 09-02-2022 Documentation procedure Mammog josie Coordinator [facility] Start: 09-02-2022 Letter encounter Mammography Coordinator [facility] Start: 09-02-2022 End: 09-02-2022 Subsequent hospital visit by physician Screen Mammo [facility] Comment on above: Encounter for screen ing mammogram for breast cancer [Z12.31] Start: 08-25-2022 Refill Marcelo mao MD Work Phone: [facility] [place] Comment on above: Refill Request Start: 07-25-2022 Refill Biranna Bowling on PA-C Work Phone: [facility] [place] Comment on above: Refill Request Start: 07-06-2022 Telephone encounter Nataliejase Bonds MA [facility] [place] Comment on above: Refill Request Start: 07-01-2022 Refill Marcelo mao MD Work Phone: [facility] [place] Comment on above: Refill Request Start: 06-22-2022 Refill Brianna Bowling on PA-C Work Phone: [facility] [place] Comment on above: Refill Request Start: 06-01-2022 Refill Brianna Bowling on PA-C Work Phone: [facility] [place] Comment on above: Refill Request Start: 05-29-2022 Telephone encounter Ryanne Reyes APRN.TSA SCREENER Work Phone: [facility] Comment on above: Results Start: 05-23-2022 End: 05-23-2022 Patient encounter procedure Jodie Shine PA-C Work Phone: [facility] Comment on above: Acute otitis externa of right ear, unspecified type (Primary Dx) Start: 05-13-2022 Refill Marcelo mao MD Work Phone: [facility] [place] Comment on above: Refill Request Start: 04-26-2022 Refill Brianna Bowling on PA-C Work Phone: [facility] [place] Comment on above: Refill Request Start: 04-18-2022 End: 04-18-2022 Patient encounter procedure Mitesh Perez MD Work Phone: [facility] [place] Comment on above: Upper arm joint pain , right (Primary Dx) Start: 04-09-2022 End: 04-09-2022 Patient encounter procedure Boy Trujillo APRN.TSA SCREENER Work Phone: [facility] Comment on above: Muscle strain (Prima ry Dx) Start: 04-03-2022 Refill Brianna Bowling on PA-C Work Phone: [facility] [place] Comment on above: Refill Request Start: 03-31-2022 End: 03-31-2022 Patient encounter procedure Jodie Litzy Athmarshall PA-C Work Phone: [facility] Comment on above: Acute pansinusitis, recurrence not specified (Primary Dx) Start: 03-25-2022 Telephone encounter Brianna glaser PA-C Work Phone: [facility] [place] Comment on above: Results Start: 03-15-2022 Chart abstracting Marcelo mallory MD Work Phone: [facility] [place] Comment on above: outside neurology Start: 03-10-2022 Telephone encounter Marcelo Acosta MD Work Phone: [facility] [place] Comment on above: form completion Start: 03-01-2022 ambulatory Brianna Bowling on PA-C Work Phone: [facility] [place] Comment on above: Urine sample Start: 02-25-2022 Telephone encounter Briannajase glaser PA-C Work Phone: [facility] [place] Comment on above: Results Refill Request Start: 02-23-2022 End: 02-23-2022 Patient encounter procedure Brianna Patel PA-C Work Phone: [facility] [place] Comment on above: Medicare annual well [facility] visit, subsequent (Primary Dx); Advance directive in chart; Essential hypertension with goal blood pressure less than 140/90; Mixed hyperlipidemia; Elevated hemoglobin A1c; 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 oxygen therapy; Gastroesophageal reflux disease without esophagitis; Microscopic hematuria; Kidney stones; Hypercalcemia; Hypernatremia; Elevated hemoglobin (HCC); Toenail deformity; Ex-smoker; Frequent UTI; Bilateral carotid artery stenosis; PVD (peripheral vascular disease) (HCC); Seborrheic keratoses, inflamed Start: 02-18-2022 Telephone encounter Brianna glaser PA-C Work Phone: [facility] [place] Comment on above: Lab Orders Start: 02-08-2022 Refill Brianna Bowling on PA-C Work Phone: [facility] [place] Comment on above: Refill Request Start: 02-01-2022 ambulatory Maureen Calixto PA-C Work Phone: Pulmonary Medicine Comment on above: Oxygen at night Start: 02-01-2022 Telephone encounter Cedrick Blount Work Phone: Podiatry Comment on above: Results Start: 12-30-2020 Patient encounter procedure Cedrick Hector Work Phone: [facility] Work Phone: Start: 03-06-2015 End: 12-09-2019 Patient encounter status Brianna MATOSC Work Phone: [facility] Procedures Date Procedure Procedure Detail Performing Clinician Start: 08-06-2024 Ecg routine ecg w/le ast 12 lds i&r only Brianna MATOSC Work Phone: Start: 07-29-2024 Radiologic exam knee complete 4/more views Marcelo Mckeon APRN.TSA SCREENER Work Phone: Start: 12-14-2023 Mri brain brain stem w/o contrast material Brianna MATOSC Work Phone: Start: 12-14-2023 3d rendering w/interp&postproc diff work station Brianna Patel PA-C Work Phone: Start: 12-30-2022 STREP A MOLECULAR (POC) Ryanne Tobar APRN.TSA SCREENER Work Phone: Start: 11-03-2022 Ct thorax w/o contra st material Maureen MATOSC Work Phone: Start: 10-26-2022 PFIZER-[employer]sp[employer] COVI D-19 BIVALENT BOOSTER VACCINE, AGE 12+ YR Marcelo Acosta MD Work Phone: Start: 09-02-2022 Screening mammograph y bi 2-view breast inc cad Taylor Mahmood APRN.TSA SCREENER Work Phone: Start: 04-17-2017 End: 04-17-2017 Documentation of current medications Kaelyn Meneses LPN Plan of Treatment Date Care Activity Detail Author Start: 08-13-2027 [facility] [place] Start: 08-06-2027 Diabetes Screening Diabetes Screening [facility] Start: 02-22-2027 Diabetes Screening Diabetes Screening [facility] Start: 11-21-2026 Diabetes Screening Diabetes Screening [facility] Start: 02-27-2026 DIABETES SCREEN DIABETES SCREEN [facility] Start: 02-27-2026 Diabetes Screening Diabetes Screening [facility] Start: 08-25-2025 DIABETES SCREEN DIABETES SCREEN [facility] Start: 08-21-2025 Annual PCP Team Chronic Disease Visit Annual PCP Team Chronic Disease Visit [facility] Start: 08-13-2025 Annual PCP Team Chronic Disease Visit Annual PCP Team Chronic Disease Visit [facility] Start: 08-06-2025 Annual PCP Team Chronic Disease Visit Annual PCP Team Chronic Disease Visit [facility] Start: 07-29-2025 BP Controlled (<130/80) BP Controlled (<130/80) [facility] Start: 04-11-2025 Annual PCP Team Chronic Disease Visit Annual PCP Team Chronic Disease Visit [facility] Start: 03-14-2025 Annual PCP Team Chronic Disease Visit Annual PCP Team Chronic Disease Visit [facility] Start: 02-28-2025 Annual PCP Team Chronic Disease Visit Annual PCP Team Chronic Disease Visit [facility] Start: 02-28-2025 Urine microalbumin profile DTaP,Tdap,Td Vaccine (1 - Tdap) [facility] Comment on above: Postponed from 12/29/2004 (Declined at t his time) Start: 02-21-2025 DIABETES SCREEN DIABETES SCREEN [facility] Start: 11-22-2024 BP Controlled (<130/80) BP Controlled (<130/80) [facility] Start: 11-21-2024 Annual PCP Team Chronic Disease Visit Annual PCP Team Chronic Disease Visit [facility] Start: 11-17-2024 Covid-19 Vaccine () Covid-19 Vaccine () [facility] Start: 10-03-2024 BP Controlled (<130/80) BP Controlled (<130/80) [facility] Start: 09-17-2024 End: 09-17-2024 Patient encounter procedure 09/17/2024 9:20 AM EST Office Visit [facility] [address] [place] [address] Marcelo Acosta MD [address] [place] [address] 6 month follow up [facility] Comment on above: 6 month follow up Start: 09-13-2024 Covid-19 Vaccine () Covid-19 Vaccine () [facility] Start: 09-13-2024 End: 12-13-2024 Thyrotropin [Units/volume] in Serum or Plasma THYROID STIMULATING HORMONE Lab Routine Subclinical hypothyroidism Expected: 09/13/2024, Expires: 12/13/2024 [facility] Work Phone: Comment on above: Expected: 09/13/2024, Expires: Start: 09-13-2024 End: 12-13-2024 Thyroxine (T4) free [Mass/volume] in Serum or Plasma T4 FREE/FREE THYROXINE Lab Routine Subclinical hypothyroidism Expected: 09/13/2024, Expires: 12/13/2024 [facility] Comment on above: Expected: 09/13/2024, Expires: Start: 09-13-2024 End: 12-13-2024 Triiodothyronine (T3) Free [Mass/volume] in Serum or Plasma T3, FREE Lab Routine Subclinical hypothyroidism Expected: 09/13/2024, Expires: 12/13/2024 [facility] Comment on above: Expected: 09/13/2024, Expires: Start: 09-13-2024 End: 09-13-2024 ambulatory 09/13/2024 9:30 AM EDT Results Only [facility] Draw Station [address] [place] [address] THYROID STIMULATING HORMONE [TSH] [facility] Station Comment on above: THYROID STIMULATING HORMONE [TSH] Start: 08-30-2024 Annual PCP Team Chronic Disease Visit Annual PCP Team Chronic Disease Visit [facility] Start: 08-27-2024 End: 08-27-2024 Patient encounter procedure 08/27/2024 8:40 AM EDT Office Visit [facility] [address] [facility] [place], [place] [address] Brianna Patel PA-C [address] [place] [address] bp recheck [facility] Comment on above: bp recheck Start: 08-22-2024 End: 11-21-2024 Bacteria identified in Urine by Culture URINE CULTURE Microbiology Routine Urinary tract infection with hematuria, site unspecified Expected: 08/22/2024, Expires: 11/21/2024 [facility] Work Phone: Comment on above: Expected: 08/22/2024, Expires: Start: 08-22-2024 End: 11-21-2024 Urinalysis complete panel - Urine URINALYSIS, WITH MICROSCOPIC Lab Routine Urinary tract infection with hematuria, site unspecified Expected: 08/22/2024, Expires: 11/21/2024 [facility] Comment on above: Expected: 08/22/2024, Expires: Start: 08-21-2024 End: 11-20-2024 Bacteria identified in Urine by Culture [facility] Work Phone: Comment on above: Expected: 08/21/2024, Expires: Start: 08-21-2024 End: 08-21-2024 Patient encounter procedure 08/21/2024 8:40 AM EDT Office Visit [facility] [address] [facility] [place] [address] Brianna Patel PA-C [address] [facility] [place], [place] [address] follow up [facility] [place] Comment on above: follow up Start: 08-13-2024 End: 11-12-2024 Basic metabolic 2000 panel - Serum or Plasma [facility] Work Phone: Comment on above: Expected: 08/13/2024, Expires: Start: 08-13-2024 End: 11-12-2024 Thyrotropin [Units/volume] in Serum or Plasma [facility] Comment on above: Expected: 08/13/2024, Expires: Start: 08-13-2024 End: 11-12-2024 Thyroxine (T4) free [Mass/volume] in Serum or Plasma [facility] Comment on above: Expected: 08/13/2024, Expires: 4 Start: 08-13-2024 End: 08-13-2024 Patient encounter procedure 08/13/2024 10:00 AM EDT Office Visit [facility] [address] [place] [address] Marceol Acosta MD [address] [place] [address] Femur swelling [facility] Comment on above: Femur swelling Start: 08-06-2024 End: 08-06-2024 Patient encounter procedure 08/06/2024 9:40 AM EDT Office Visit [facility] [place] [address] [place] [address] Brianna Patel PA-C [address] [place] [address] pre op clearance back surgery late Oct per Dr Emmanuel [facility] Comment on above: pre op clearance back surgery late Oct p er Dr Emmanuel Start: 07-29-2024 DIABETES SCREEN DIABETES SCREEN [facility] Start: 07-14-2024 Influenza vaccination Influenza Vaccine (#1) [facility] Start: 06-07-2024 End: 06-07-2024 Patient encounter procedure 06/07/2024 9:00 AM EDT Office Visit Rheumatology [address] [place] [address] Maureen Muñoz [place] [address] [place] [address] History of polymyalgia rheumatica [Z87.39]; Myalgia [M79.10] Rhe[facility]ology Comment on above: History of polymyalgia rheumatica [Z87.3 9]; Myalgia [M79.10] Start: 04-18-2024 End: 04-18-2024 ambulatory 04/18/2024 11:30 AM EDT OT/PT/Speech Visit [facility] [address] [place] [address] Ketan Baca PT Right leg pain [facility] Comment on above: Right leg pain Start: 04-11-2024 End: 07-11-2024 MJ BY IFA WITH REFLEX [facility] Work Phone: Comment on above: Expected: 04/11/2024, Expires: Start: 03-11-2024 End: 06-10-2024 Bacteria identified in Urine by Culture URINE CULTURE Microbiology Routine Dysuria Expected: 03/11/2024, Expires: 06/10/2024 [facility] Work Phone: Comment on above: Expected: 03/11/2024, Expires: 4 Start: 02-28-2024 ANNUAL PCP TEAM CHRONIC DISEASE VISIT ANNUAL PCP TEAM CHRONIC DISEASE VISIT [facility] Start: 02-28-2024 BP CONTROLLED (<130/80) BP CONTROLLED (<130/80) [facility] Start: 02-16-2024 End: 05-17-2024 CBC W Auto Differential panel - Blood CBC + DIFF Lab Routine Polycythemia, secondary Expected: 02/16/2024, Expires: 05/17/2024 [facility] Work Phone: Comment on above: Expected: 02/16/2024, Expires: 4 Start: 02-16-2024 End: 05-17-2024 Cobalamin (Vitamin B12) [Mass/volume] in Serum or Plasma VITAMIN B12 BLOOD Lab Routine Gastroesophageal reflux disease without esophagitis Medication management Expected: 02/16/2024, Expires: 05/17/2024 [facility] Work Phone: Comment on above: Expected: 02/16/2024, Expires: 4 Start: 02-16-2024 End: 05-17-2024 Comprehensive metabolic 2000 panel - Serum or Plasma COMP METABOLIC PANEL Lab Routine Essential hypertension with goal blood pressure less than 140/90 Mixed hyperlipidemia Expected: 02/16/2024, Expires: 05/17/2024 [facility] Work Phone: Comment on above: Expected: 02/16/2024, Expires: Start: 02-16-2024 End: 05-17-2024 Hemoglobin A1c in Blood HGB A1C Lab Routine Elevated hemoglobin A1c Expected: 02/16/2024, Expires: 05/17/2024 [facility] Work Phone: Comment on above: Expected: 02/16/2024, Expires: Start: 02-16-2024 End: 05-17-2024 LIPID PANEL, NONFASTING LIPID PANEL, NONFASTING Lab Routine Essential hypertension with goal blood pressure less than 140/90 Mixed hyperlipidemia Bilateral carotid artery stenosis 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) PVD (peripheral vascular disease) (HCC) Expected: 02/16/2024, Expires: 05/17/2024 [facility] Work Phone: Comment on above: Expected: 02/16/2024, Expires: Start: 02-16-2024 End: 05-17-2024 Magnesium [Mass/volume] in Serum or Plasma MAGNESIUM BLD Lab Routine Gastroesophageal reflux disease without esophagitis Medication management Expected: 02/16/2024, Expires: 05/17/2024 [facility] Work Phone: Comment on above: Expected: 02/16/2024, Expires: Start: 02-16-2024 End: 05-17-2024 Urinalysis complete panel - Urine URINALYSIS, WITH MICROSCOPIC Lab Routine Essential hypertension with goal blood pressure less than 140/90 Mixed hyperlipidemia Expected: 02/16/2024, Expires: 05/17/2024 [facility] Work Phone: Comment on above: Expected: 02/16/2024, Expires: Start: 01-04-2024 ANNUAL PCP TEAM CHRONIC DISEASE VISIT ANNUAL PCP TEAM CHRONIC DISEASE VISIT [facility] Start: 11-13-2023 Advance Directive Discussion Advance Directive Discussion [facility] Start: 11-04-2023 End: 12-10-2023 Ct thorax w/o contrast material CT CHEST WO IVCON Radiology Routine Lung nodules Expected: 11/04/2023, Expires: 12/10/2023 [facility] Work Phone: Comment on above: Expected: 11/04/2023, Expires: Start: 10-31-2023 ANNUAL PCP TEAM CHRONIC DISEASE VISIT ANNUAL PCP TEAM CHRONIC DISEASE VISIT [facility] Start: 10-03-2023 ANNUAL PCP TEAM CHRONIC DISEASE VISIT ANNUAL PCP TEAM CHRONIC DISEASE VISIT [facility] Start: 09-30-2023 End: 09-28-2024 DXA-AXIAL SKELETON DXA-AXIAL SKELETON Radiology Routine Osteopenia, unspecified location Expected: 09/30/2023, Expires: 09/28/2024 [facility] Work Phone: Comment on above: Expected: 09/30/2023, Expires: Start: 09-08-2023 ANNUAL PCP TEAM CHRONIC DISEASE VISIT ANNUAL PCP TEAM CHRONIC DISEASE VISIT [facility] Start: 08-28-2023 Covid-19 Vaccine () Covid-19 Vaccine () [facility] Start: 08-25-2023 ANNUAL PCP TEAM CHRONIC DISEASE VISIT ANNUAL PCP TEAM CHRONIC DISEASE VISIT [facility] Start: 07-14-2023 Influenza vaccination [facility] Start: 07-06-2023 ANNUAL PCP TEAM CHRONIC DISEASE VISIT ANNUAL PCP TEAM CHRONIC DISEASE VISIT [facility] Start: 05-23-2023 BP CONTROLLED (<130/80) BP CONTROLLED (<130/80) [facility] Start: 04-18-2023 ANNUAL PCP TEAM CHRONIC DISEASE VISIT ANNUAL PCP TEAM CHRONIC DISEASE VISIT [facility] Start: 04-18-2023 BP CONTROLLED (<130/80) BP CONTROLLED (<130/80) [facility] Start: 02-24-2023 COVID-19 VACCINE (7 - Pfizer series) COVID-19 VACCINE (7 - Pfizer series) [facility] Start: 02-23-2023 ANNUAL PCP TEAM CHRONIC DISEASE VISIT ANNUAL PCP TEAM CHRONIC DISEASE VISIT [facility] Start: 02-23-2023 BP CONTROLLED (<130/80) BP CONTROLLED (<130/80) [facility] Start: 11-13-2022 ADVANCE DIRECTIVE DISCUSSION ADVANCE DIRECTIVE DISCUSSION [facility] Start: 09-21-2022 Urine microalbumin profile DTAP,TDAP,TD (1 - Tdap) [facility] Comment on above: Postponed from 12/29/2004 (Insurance Cov erage) Start: 08-02-2022 ANNUAL PCP TEAM CHRONIC DISEASE VISIT ANNUAL PCP TEAM CHRONIC DISEASE VISIT [facility] Start: 07-14-2022 Influenza vaccination INFLUENZA (#1) [facility] Start: 05-23-2022 End: 07-23-2022 Bacteria identified in Wound by Culture [facility] Work Phone: Comment on above: Expected: 05/23/2022, Expires: 2 Start: 05-23-2022 End: 07-23-2022 Fungus identified in Unspecified specimen by Culture [facility] Work Phone: Comment on above: Expected: 05/23/2022, Expires: 2 Start: 03-31-2022 End: 04-14-2022 Influenza virus A and B RNA and SARS-CoV-2 (COVID-19) N gene panel - Respiratory specimen by JORGE with probe detection [facility] Work Phone: Comment on above: Expected: 03/31/2022, Expires: 2 Start: 03-25-2022 End: 05-25-2022 Calcium [Mass/volume] in Serum or Plasma CALCIUM TOTAL BLD Lab Routine Hypercalcemia Expected: 03/25/2022, Expires: 05/25/2022 [facility] Work Phone: Comment on above: Expected: 03/25/2022, Expires: 2 Start: 03-25-2022 End: 05-25-2022 CBC W Auto Differential panel - Blood CBC + DIFF Lab Routine Elevated hemoglobin (HCC) Expected: 03/25/2022, Expires: 05/25/2022 [facility] Work Phone: Comment on above: Expected: 03/25/2022, Expires: 2 Start: 03-25-2022 End: 05-25-2022 PTH INTACT BLD PTH INTACT BLD Lab Routine Hypercalcemia Expected: 03/25/2022, Expires: 05/25/2022 [facility] Work Phone: Comment on above: Expected: 03/25/2022, Expires: 2 Start: 03-25-2022 End: 05-25-2022 Sodium [Moles/volume] in Serum or Plasma SODIUM/NA BLD Lab Routine Hypernatremia Expected: 03/25/2022, Expires: 05/25/2022 [facility] Work Phone: Comment on above: Expected: 03/25/2022, Expires: 2 Start: 03-25-2022 End: 05-25-2022 VITAMIN D 25 HYDROXY VITAMIN D 25 HYDROXY Lab Routine Hypercalcemia Expected: 03/25/2022, Expires: 05/25/2022 [facility] Work Phone: Comment on above: Expected: 03/25/2022, Expires: 2 Start: 02-25-2022 End: 04-27-2022 Bacteria identified in Urine by Culture URINE CULTURE Microbiology Routine Microscopic hematuria Expected: 02/25/2022, Expires: 04/27/2022 [facility] Work Phone: Comment on above: Expected: 02/25/2022, Expires: 2 Start: 02-25-2022 End: 04-27-2022 Urinalysis complete panel - Urine URINALYSIS, WITH MICROSCOPIC Lab Routine Microscopic hematuria Expected: 02/25/2022, Expires: 04/27/2022 [facility] Work Phone: Comment on above: Expected: 02/25/2022, Expires: 2 Start: 02-18-2022 End: 04-20-2022 CBC W Auto Differential panel - Blood CBC + DIFF Lab Routine Essential hypertension with goal blood pressure less than 140/90 Elevated hemoglobin A1c Expected: 02/18/2022, Expires: 04/20/2022 [facility] Work Phone: Comment on above: Expected: 02/18/2022, Expires: 2 Start: 02-18-2022 End: 04-20-2022 Comprehensive metabolic 2000 panel - Serum or Plasma COMP METABOLIC PANEL Lab Routine Essential hypertension with goal blood pressure less than 140/90 Elevated hemoglobin A1c Expected: 02/18/2022, Expires: 04/20/2022 [facility] Work Phone: Comment on above: Expected: 02/18/2022, Expires: 2 Start: 02-18-2022 End: 04-20-2022 Hemoglobin A1c/Hemoglobin.total in Blood HGB A1C Lab Routine Elevated hemoglobin A1c Expected: 02/18/2022, Expires: 04/20/2022 [facility] Work Phone: Comment on above: Expected: 02/18/2022, Expires: 2 Start: 02-18-2022 End: 04-20-2022 LIPID PANEL, NONFASTING LIPID PANEL, NONFASTING Lab Routine Mixed hyperlipidemia Expected: 02/18/2022, Expires: 04/20/2022 [facility] Work Phone: Comment on above: Expected: 02/18/2022, Expires: 2 Start: 02-18-2022 End: 04-20-2022 Magnesium [Mass/volume] in Serum or Plasma MAGNESIUM BLD Lab Routine Current use of proton pump inhibitor Expected: 02/18/2022, Expires: 04/20/2022 [facility] Work Phone: Comment on above: Expected: 02/18/2022, Expires: 2 Start: 02-18-2022 End: 04-20-2022 Urinalysis complete panel - Urine URINALYSIS, WITH MICROSCOPIC Lab Routine Essential hypertension with goal blood pressure less than 140/90 Elevated hemoglobin A1c Expected: 02/18/2022, Expires: 04/20/2022 [facility] Work Phone: Comment on above: Expected: 02/18/2022, Expires: 2 Start: 11-13-2021 ADVANCE DIRECTIVE DISCUSSION ADVANCE DIRECTIVE DISCUSSION [facility] Start: 07-21-2020 SHINGRIX VACCINE (3 of 3) SHINGRIX VACCINE (3 of 3) [facility] Start: 04-17-2017 End: 04-17-2017 Appointment [facility] Work Phone: Start: 12-29-2004 Urine microalbumin profile [facility] Start: 1963 Anxiety Screening Anxiety Screening [facility] Start: 1963 BP CONTROLLED (<130/80) BP CONTROLLED (<130/80) [facility] Bacteria identified in Urine by Culture URINE CULTURE Microbiology Routine Microscopic hematuria 02/23/2022 1:22 PM EDT [facility] Work Phone: DXA-AXIAL SKELETON DXA-AXIAL SKE LETON Radiology Routine Osteopenia, unspecified location 10/02/2023 4:33 PM EST [facility] Work Phone: ECG COMPLETE ECG COMPLETE ECG 08/06/2024 10:02 AM EDT [facility] End: 11-01-2024 GYPSY SCREENING GYPSY SCREENING Radiology Routine Encounter for routine gynecologic examination in Medicare patient Screening mammogram for breast cancer 1 Occurrences starting 10/03/2023 until 11/01/2024 [facility] Work Phone: Comment on above: 1 Occurrences starting 10/03/2023 until 11/01/2024 GYPSY SCREENING GYPSY SCREENING [facility] diology Routine Encounter for screening mammogram for malignant neoplasm of breast 10/03/2023 3:56 PM EST [facility] Work Phone: OXIMETRY - NOCTURNAL OXIMETRY - NOCTURNAL Procedures Routine Post-COVID syndrome Oxygen dependent Ordered: 11/10/2022 [facility] Work Phone: Comment on above: Ordered: 11/10/2022 End: 10-31-2023 PVR ANK/TORO/TOE [facility] PVR ANK/TORO/TOE [facility] Vascular Lab Routine 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) Bilateral carotid artery stenosis 1 Occurrences starting 10/31/2022 until 10/31/2023 [facility] Work Phone: Comment on above: 1 Occurrences starting 10/31/2022 until 10/31/2023 Removal impacted cer umen irrigation/lvg unilat AMBULATORY EAR LAVAGE/IRRIGATION Procedures Routine Impacted cerumen of right ear Ordered: 10/10/2022 [facility] Work Phone: Comment on above: Ordered: 10/10/2022 End: 10-31-2023 US CAROTID ARTERIES [facility] US CAROTID ARTERIES [facility] Vascular Lab Routine 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) Bilateral carotid artery stenosis 1 Occurrences starting 10/31/2022 until 10/31/2023 [facility] Work Phone: Comment on above: 1 Occurrences starting 10/31/2022 until 10/31/2023 [facility] Immunizations Immunization Date Immunization Notes Care Provider Fa [facility] 07-18-2024 influenza, high dose seasonal, preservative-free Marcelo Acosta MD Work Phone: [facility] 05-13-2024 COVID-19 vaccine, ag e 12+ yr, 2022- season (PFIZER-NeXeptionNTInspireMD) Marcelo Acosta MD Work Phone: [facility] 07-12-2023 respiratory syncytia l virus (RSV) vaccine, bivalent (ABRYSVO) Marcelo Acosta MD Work Phone: [facility] 07-03-2023 influenza (aIIV4) vaccine, age 65+ yr, quadrivalent, PF (FLUAD QUAD) Mri (I-Stat/1.5t) Work Phone: [facility] Work Phone: 07-03-2023 pneumococcal (PCV20) vaccine, 20 valent (PREVNAR 20) Marcelo Acosta MD Work Phone: [facility] 07-03-2023 influenza virus vacc ine, unspecified formulation Marcelo Acosta MD Work Phone: [facility] 10-26-2022 COVID-19 booster vaccine, age 12+ yr, bivalent (PFIZER-BIONTECH) Mi Nurse Work Phone: [facility] 08-25-2022 influenza, high-dose , quadrivalent vaccine (FLUZONE HIGH DOSE QUADRIVALENT) Marcelo Acosta MD Work Phone: [facility] 08-25-2022 influenza virus vacc ine, unspecified formulation Marcelo Acosta MD Work Phone: [facility] 03-31-2022 COVID-19 original vaccine, age 12+ yr, monovalent (PFIZER-BIONTECH - JUDGE TOP) Brianna Patel PA-C Work Phone: [facility] 03-31-2022 COVID-19 vaccine, ag e 12+ yr (PFIZER-BIONTECH - PURPLE TOP) Brianna Patel PA-C Work Phone: [facility] 03-31-2022 pneumococcal polysaccharide vaccine, 23 valent Brianna Patel PA-C Work Phone: [facility] 08-27-2021 influenza, high-dose , quadrivalent vaccine (FLUZONE HIGH DOSE QUADRIVALENT) Cedrick Hector Work Phone: [facility] Work Phone: 12-30-2020 COVID-19 vaccine, ag e 12+ yr (PFIZER-BIONTECH - PURPLE TOP) Cedrick Hector Work Phone: [facility] Work Phone: 08-01-2020 zoster vaccine recombinant Brianna Patel PA-C Work Phone: [facility] 05-26-2020 zoster vaccine recombinant Cedrick Hector Work Phone: [facility] Work Phone: 04-27-2020 zoster vaccine recombinant Brianna Patel PA-C Work Phone: [facility] 08-27-2019 influenza, high dose seasonal, preservative-free Cedrick Testrake Work Phone: [facility] 09-06-2018 influenza, high dose seasonal, preservative-free Cedrick Testrake Work Phone: [facility] 07-13-2017 influenza, high dose seasonal, preservative-free Cedrick Testrake Work Phone: [facility] 08-17-2016 influenza virus vacc ine, unspecified formulation Cedrick [employer] + Sailleonardo Work Phone: [facility] Work Phone: 03-06-2015 pneumococcal conjuga te vaccine, 13 valent Cedrick [employer] Work Phone: [facility] Work Phone: 08-03-2014 influenza virus vacc ine, whole virus Cedrick [employer] Work Phone: [facility] 08-03-2014 kenyan encephaliti s vaccine SC Brianna Patel PA-C Work Phone: [facility] 03-14-2013 pneumococcal polysaccharide vaccine, 23 valent Cedrick Testrake Work Phone: [facility] 12-20-2011 zoster vaccine, live Cedrick [employer] Work Phone: [facility] 09-14-2010 influenza virus vacc ine, unspecified formulation Cedrick [employer]Porter [employer] Sailleonardo Work Phone: [facility] Work Phone: 03-16-2010 pneumococcal polysaccharide vaccine, 23 valent Cedrick Testrake Work Phone: [facility] 08-28-2009 influenza virus vacc ine, unspecified formulation Cedrick Testlanie Work Phone: [facility] 09-11-2008 influenza virus vacc ine, unspecified formulation Cedrick Testraleonardo Work Phone: [facility] 10-01-2007 influenza virus vacc ine, unspecified formulation Cedrick Testrake Work Phone: [facility] Work Phone: 10-04-2006 influenza virus vacc ine, unspecified formulation [facility] Work Phone: [facility] Work Phone: 12-28-2004 tetanus and diphther ia toxoids, adsorbed, preservative free, for adult use (2 Lf of tetanus toxoid and 2 Lf of diphtheria toxoid) [facility] Work Phone: [facility] Work Phone: 01-16-1976 typhoid vaccine, unspecified formulation [facility] Work Phone: [facility] Work Phone: 10-21-1964 tetanus and diphther ia toxoids, adsorbed, preservative free, for adult use (2 Lf of tetanus toxoid and 2 Lf of diphtheria toxoid) [facility] Work Phone: [facility] Work Phone: Payers Date Payer Category Payer Medicare MMO MEDICARE MMO MED[employer]ANT[employer] PPO [id number] 2021-Present [phone] [address] [place] [address] PPO [id number] 2021 Medicare MMO [employer] PPO [id number] 2021-Present [phone] [address] [place] [address] PPO [id number] 2021 Unknown [id number] Social History Date Type Detail Facility Start: 07-29-2021 End: 07-29-2024 Tobacco smoking status NHIS Ex-smoker [facility] Work Phone: Start: 1963 End: 08-14-2006 History of tobacco use Current smoker [facility] Work Phone: Start: 1963 End: 08-14-2006 History of tobacco use Cigarette Smoker [facility] Work Phone: Start: 12-20-2021 End: 08-21-2024 Alcohol intake Current drinker of alcohol (finding) [facility] Start: 08-27-2020 End: 01-03-2023 History SDOH Alcohol Frequency 2 [facility] Start: 08-27-2020 End: 01-03-2023 History SDOH Alcohol Std Drinks 98 [facility] Start: 09-10-2009 History SDOH Alcohol Comment rarely [facility] Start: 08-27-2020 End: 01-03-2023 History SDOH Social Connections Phone 5 [facility] Start: 08-27-2020 End: 01-03-2023 History SDOH Social Connections Get Together 1 [facility] Start: 08-27-2020 End: 01-03-2023 History SDOH Social Connections Living 3 [facility] Start: 08-27-2020 History SDOH Physical Activity DPW 7 [facility] Start: 06-13-2020 Education 21 [facility] Start: 07-29-2021 End: 07-06-2022 Tobacco Comment Parents smoked in childhood home. Spouse ex-smoker, did smoke early in marriage. [facility] Start: 1945 Sex Assigned At Female [facility] Start: 02-13-2022 End: 10-10-2022 Exposure to SARS-CoV-2 (event) Not sure [facility] Start: 07-29-2021 End: 08-30-2023 Cigarettes smoked current (pack per day) - Reported 1 [facility] Start: 07-29-2021 End: 07-29-2024 Tobacco use and exposure Smokeless tobacco non-user [facility] Work Phone: Start: 07-02-2022 End: 01-03-2023 History SDOH Alcohol Std Drinks 0 [facility] Start: 07-02-2022 End: 01-03-2023 History SDOH Physical Activity DPW 4 [facility] Start: 07-02-2022 History SDOH Physical Activity MPS 6 [facility] Start: 06-26-2022 End: 07-06-2022 Exposure to SARS-CoV-2 (event) Yes [facility] Start: 01-03-2023 End: 08-30-2023 Social connection and isolation panel [facility] How often do you get together with friends or relatives? Patient refused [facility] Do you belong to any clubs or organizations such as adventist groups, unions, fraternal or athletic groups, or school groups? No [facility] Are you now , , , , never or living with a partner? [facility] How often to you hav e a drink containing alcohol? Never [facility] Do you feel stress - tense, restless, nervous, or anxious, or unable to sleep at night because your mind is troubled all the time - these days [OSQ] Only a little [facility] (I/We) worried wheth er (my/our) food would run out before (I/we) got money to buy more. Never true [facility] Start: 02-15-2019 Gender identity Identifies as female gender (finding) [facility] Start: 02-15-2019 Sexual orientation Heterosexual (finding) [facility] How often to you hav e a drink containing alcohol? Monthly or less [facility] How hard is it for y ou to pay for the very basics like food, housing, medical care, and heating Not very hard [facility] Do you feel stress - tense, restless, nervous, or anxious, or unable to sleep at night because your mind is troubled all the time - these days [OSQ] Not at all [facility] How many standard dr inks containing alcohol do you have on a typical day? 3 or 4 [facility] Do you feel stress - tense, restless, nervous, or anxious, or unable to sleep at night because your mind is troubled all the time - these days [OSQ] To some extent [facility] (I/We) worried wheth er (my/our) food would run out before (I/we) got money to buy more. Sometimes true [facility] Clinical Notes 12-04-2018 to 08-27-2024 Brianna Patel PA-C - 08/21/2024 9:09 AM EDTPatient InstructionsTelephone Encounter - Rhina Salazar LPN - 08/21/2024 8:28 AM Marcelo Dooley MD - 08/13/2024 9:50 AM EDT Note Date & Type Note [facility] 08-27-2024 Note [facility] 08-21-2024 Note [facility] 08-21-2024 History of Present illness Narrative Chief Complaint Patient presents with: Recheck HPI Joyce Calvert is a 79 year old female who presents here today for recheck BP. Patient saw PCP on 08/13 and her HCTZ was switched to chlorthalidone. She states she is doing okay on it. Not checking bp at home Finished atb for UTI today. States her surgery is now scheduled for 08/28 Past medical history, appointments, medications, allergies reviewed. Previous Medical History PAST MEDICAL HISTORY Diagnosis Date Abnormal mammogram, unspecified 2009 LEFT BREAST LESION biopsy neg Arthritis of knee 03/01/2013 Arthritis, lumbar spine 06/04/2018 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) 10/16/2017 Bilateral carotid artery stenosis 12/09/2019 Seeing Vascular: US 12/2019 Rt 20-40%, Lt 60-80% Bilateral leg edema 08/13/2024 Chronic left-sided low back pain with left-sided sciatica 06/18/2018 COVID-19 virus infection 07/21/202106/2021 DDD (degenerative disc disease), cervical 08/30/2023 [facility] Degeneration of lumbar or lumbosacral intervertebral disc [...] file at physician's office 01/08/2023 DPA: Burton Calvert (). 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 Wilson at [facility] PAST SURGICAL HISTORY OF 07/19/2002 aorto- to [...] 09/02/2014 SLCTV CATHJ 1ST 2ND ORD [facility] 09/07/2006 RIGHT SLCTV CATHJ 1ST 2ND ORD [facility] 09/07/2006 LEFT STEREOTACTIC CORE BIOPSY 09/20/2007 LEFT [...] mg capsule Take 1 capsule by mouth two times a day. DULoxetine (CYMBALTA) 30 mg capsule Take 1 capsule by mouth once daily. In the AM rosuvastatin (CRESTOR) 40 mg tablet Take 1 tablet by mouth every evening. pramipexole (MIRAPEX) 1 mg tablet Take 1 tablet by mouth two times a day. dilTIAZem CR (TIAZAC, TAZTIA XT) 180 mg 24 hr capsule Take 1 capsule by mouth once daily. potassium chloride ER (KLOR-CON) 20 mEq tablet Take 1 tablet by mouth two times a day. lansoprazole (PREVACID) 30 mg capsule Take 1 [...] Take 1 tablet by mouth once daily. cefADROxil (DURICEF) 500 mg capsule Take 1 capsule by mouth two times a day for 7 days. (Patient not taking: Reported on 08/21/2024) No current facility-administered medications on file prior to visit. Social History Social History Tobacco Use Smoking status: Former Current packs/day: 0.00 Average packs/day: 1 pack/day for 43.6 years (43.6 ttl pk-yrs) Types: Cigarettes Start date: 1963 Quit date: 08/14/2006 Years since quittin.0 Smokeless tobacco: Never Tobacco comments: Parents smoked in childhood home. Spouse ex-smoker, did smoke early in marriage. Vaping Use Vaping status: Never Used Substance Use Topics Alcohol use: Yes Comment: rarely Drug use: No Review of Symptoms REVIEW OF SYSTEMS See hpi EXAM: BP 158/78 (BP Site: Right Arm, BP Position: Sitting, BP Cuff Size: Regular Adult) Pulse 68 Temp 36.2 C (97.2 F) Resp 18 Wt 68.5 kg (151 lb) SpO2 95% BMI 33.03 kg/m General Appearance: Well appearing, alert, in no acute distress, well-hydrated, well nourished.. Health Maintenance List Anxiety Screening Never done BP Controlled (<130/80) due on 02/23/2023 DTaP,Tdap,Td Vaccine(1 - Tdap) due on 02/28/2025 Annual PCP Team Chronic Disease Visit due on 08/21/2025 Diabetes Screening due on 08/13/2027 Bone Density Screening Completed Influenza Vaccine Completed Advance Directive Discussion Completed RSV Vaccine Completed Shingrix Vaccine Completed Covid-19 Vaccine Completed Pneumococcal Vaccine: 65+ Completed Colorectal Cancer Screening Discontinued Data reviewed ASSESSMENT/PLAN: 1. Essential hypertension with goal blood pressure less than 140/90 - ICD9: 401.9, ICD10: I10 (primary diagnosis) - Uncontrolled - Increase chlorthalidone to 50mg - Recommend home blood pressure monitoring, to bring results to next visit - Encouraged sodium restriction, DASH or Mediterranean diet - Recommend regular aerobic exercise - Follow up in 1 week for hypertension visit 2. Recurrent UTI (urinary tract infection) - ICD9: 599.0, ICD10: N39.0 recurrent - Send urine for culture - URINE CULTURE Brianna Patel PA-C documented in this encounter [facility] 08-21-2024 Instructions Brianna Patel PA-C - 08/21/2024 9:04 AM EDT Increase Chlorthalidone to 50mg daily. Monitor bp at home Follow up on 08/27 for BP check documented in this encounter [facility] 08-21-2024 Telephone encounter Note Forms were faxed 08/08/24 got confirmation that fax was received. Refaxed forms to new number provided below. Rhina Salazar LPN' [facility] 08-21-2024 Miscellaneous Notes Forms were faxed 08/08/24 got confirmation that fax was received. Refaxed forms to new number provided below. Rhina Salaazr LPN' Rebekah with [facility] calls to request labs,EKG, and pre-op forms be faxed to [phone]. Labs/EKG faxed. Appt on 08/06/2024 with Brianna Patel. Pre-op forms not found. Please fax to [phone] when available. Charla Torre RN documented in this encounter [facility] 08-20-2024 Telephone encounter Note Returned call to Mrs. Calvert to let her know that per Dr. Saha, she is fine to move forward with back surgery. Nicol Latham [employer] [facility] Work Phone: 08-20-2024 Miscellaneous Notes Returned call to Mrs. Calvert to let her know that per Dr. Saha, she is fine to move forward with back surgery. Nicol Latham [employer] Ms. Calvert's doctor is recommending back surgery for her in the near future. She would like to know if there would be any risk to her vascular issues by moving forward with back surgery? Nicol Latham [employer] documented in this encounter [facility] 08-20-2024 Telephone encounter Note Rebekah with [facility] calls to request labs,EKG, and pre-op forms be faxed to [phone]. Labs/EKG faxed. Appt on 08/06/2024 with Brianna Patel. Pre-op forms not found. Please fax to [phone] when available. Charla Torre RN [facility] 08-20-2024 Telephone encounter Note Ms. Calvert's doctor is recommending back surgery for her in the near future. She would like to know if there would be any risk to her vascular issues by moving forward with back surgery? Nicol Latham [employer] [facility] 08-15-2024 Telephone encounter Note Pt notified and verbalized understanding Lorraine Snyder MA [facility] 08-15-2024 Miscellaneous Notes Pt notified and verbalized understanding Lorraine Snyder MA Please let patient know her urine continues to show active infection. I have sent in another round of antibiotics. documented in this encounter [facility] 08-15-2024 Telephone encounter Note Please let patient know her urine continues to show active infection. I have sent in another round of antibiotics. [facility] 08-15-2024 Telephone encounter Note Opened in error. [facility] 08-15-2024 Miscellaneous Notes Opened in error. documented in this encounter [facility] 08-14-2024 Telephone encounter Note Pt returned call. Give results below and scheduled lab appointment for 1 month on 09/13/24 [facility] Work Phone: 08-14-2024 Miscellaneous Notes Pt returned call. Give results below and scheduled lab appointment for 1 month on 09/13/24 Left message for patient to contact office. Natalie Bonds MA Let patient know electrolyte panel and kidney functions were ok. TSH lab was ok for the Free T4 thyroid hormone level was slightly low. Would like to repeat labs in a month. Orders placed. documented in this encounter [facility] 08-14-2024 Telephone encounter Note Left message for patient to contact office. Natalie Bonds MA [facility] 08-13-2024 Telephone encounter Note Let patient know electrolyte panel and kidney functions were ok. TSH lab was ok for the Free T4 thyroid hormone level was slightly low. Would like to repeat labs in a month. Orders placed. [facility] 08-13-2024 Note [facility] 08-13-2024 History of Present illness Narrative Chief Complaint Patient presents with: Edema HPI Joyce Calvert is a 79 year old female who presents here today for Acute onset of foot swelling Patient indicated that she saw Dr. Ragland for her feet and her feet were swollen. He recommended an US to rule out DVT. US was normal. He instructed patient to get into PCP. Patient has not seen swelling in her legs. The swelling does seem to get worse as the day goes on. Does not improve over night or if does it is minimal. No shortness of breath, orthopnea or chest pain. Past medical history, appointments, medications, allergies reviewed. Previous Medical History PAST MEDICAL HISTORY Diagnosis Date Abnormal mammogram, unspecified 2009 LEFT BREAST LESION biopsy neg Arthritis of knee 03/01/2013 Arthritis, lumbar spine 06/04/2018 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) 10/16/2017 Bilateral carotid artery stenosis 12/09/2019 Seeing Vascular: US 12/2019 Rt 20-40%, Lt 60-80% Chronic left-sided low back pain with left-sided sciatica 06/18/2018 COVID-19 virus infection 07/21/202106/2021 DDD (degenerative disc disease), cervical 08/30/2023 [facility] Degeneration of lumbar or lumbosacral intervertebral disc [...] file at physician's office 01/08/2023 DPA: Burton Calvert (). 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 Wilson at [facility] PAST SURGICAL HISTORY OF 07/19/2002 aorto- to [...] 09/02/2014 SLCTV CATHJ 1ST 2ND ORD [facility] 09/07/2006 RIGHT SLCTV CATHJ 1ST 2ND ORD [facility] 09/07/2006 LEFT STEREOTACTIC CORE BIOPSY 09/20/2007 [...] on File Prior to Visit Medication Sig cefADROxil (DURICEF) 500 mg capsule Take 1 capsule by mouth two times a day for 7 days. DULoxetine (CYMBALTA) 30 mg capsule Take 1 capsule by mouth once daily. In the AM rosuvastatin (CRESTOR) 40 mg tablet Take 1 tablet by mouth every evening. celecoxib (CELEBREX) 200 mg capsule Take 1 capsule by mouth two times a day. pramipexole (MIRAPEX) 1 mg tablet Take 1 tablet by mouth two times a day. dilTIAZem CR (TIAZAC, TAZTIA XT) 180 mg 24 hr capsule Take 1 capsule by mouth once daily. potassium chloride ER (KLOR-CON) 20 mEq tablet Take 1 tablet by mouth two times a day. hydroCHLOROthiazide 25 mg tablet Take 1 tablet by mouth once daily. lansoprazole (PREVACID) 30 [...] Social History Tobacco Use Smoking status: Former Current packs/day: 0.00 Average packs/day: 1 pack/day for 43.6 years (43.6 ttl pk-yrs) Types: Cigarettes Start date: 1963 Quit date: 08/14/2006 Years since quittin.0 Smokeless tobacco: Never Tobacco comments: Parents smoked in childhood home. Spouse ex-smoker, did smoke early in marriage. Vaping Use Vaping status: Never Used Substance Use Topics Alcohol use: Yes Comment: rarely Drug use: No Review of Symptoms REVIEW OF SYSTEMS See HPI EXAM: BP 158/80 (BP Site: Right Arm, BP Position: Sitting, BP Cuff Size: Regular Adult) Pulse 76 Resp 18 Wt 68.9 kg (152 lb) BMI 33.25 kg/m BP 148/68 Pulse 76 Resp 18 Wt 68.9 kg (152 lb) BMI 33.25 kg/m General Appearance: Well appearing, alert, in no acute distress, well-hydrated, well nourished.. Neck: Supple, no adenopathy; thyroid symmetric, normal size, no bruits. Lungs: Lungs clear to auscultation. No wheezing, rhonchi, rales.. Heart: RRR without murmur, gallop, or rubs. No ectopy. Abdomen: Normal abdominal exam, Abdomen soft, non-tender. Bowel sounds normal. No masses, organomegaly. Extremities: No deformities, skin discoloration, clubbing or cyanosis. Good capillary refill. There is 1+ pitting edema in the right foot to mid tib. There is less pitting edema on the left in the foot to mid tib. . Peripheral Pulses: Normal. Health Maintenance List Anxiety Screening Never done BP Controlled (<130/80) due on 02/23/2023 DTaP,Tdap,Td Vaccine(1 - Tdap) due on 02/28/2025 Annual PCP Team Chronic Disease Visit due on 08/06/2025 Diabetes Screening due on 08/06/2027 Bone Density Screening Completed Influenza Vaccine Completed Advance Directive Discussion Completed RSV Vaccine Completed Shingrix Vaccine Completed Covid-19 Vaccine Completed Pneumococcal Vaccine: 65+ Completed Colorectal Cancer Screening Discontinued Data reviewed A/P ASSESSMENT/PLAN: 1. Essential hypertension with goal blood pressure less than 140/90 - ICD9: 401.9, ICD10: I10 (primary diagnosis) - Uncontrolled - Continue current medications - Stop hydrochlorothiazide and start chlorthalidone 25 mg a day. - Recommend home blood pressure monitoring, to bring results to next visit - Encouraged sodium restriction, DASH or Mediterranean diet - Recommend regular aerobic exercise 2. Bilateral leg edema - ICD9: 782.3, ICD10: R60.0 - as above. - check BMP. And Thyroid studies. - advised on reduced salt intake, elevated her feet and wearing support socks. Requested Prescriptions Signed Prescriptions Disp Refills chlorthalidone (HYGROTON) 25 mg tablet 30 tablet 1 Sig: Take 1 tablet by mouth once daily. celecoxib (CELEBREX) 200 mg capsule 180 capsule 1 Sig: Take 1 capsule by mouth two times a day. F/u at her routine 09/17/2024 to re-eval leg swelling and HTN. Marcelo Acosta MD documented in this encounter [facility] 08-12-2024 Note HNO ID: [id number] Author: RHINA SALAZAR LPN Service: ? Author Type: LICENSED NURSE Type: Progress Notes Filed: 08/12/2024 06:51 Note Text: Scan on 08/09/2024 1:26 PM by ProviderHenrique PA-C: Ultrasound [facility] 08-12-2024 History of Present illness Narrative Scan on 08/09/2024 1:26 PM by ProviderHenrique PA-C: Ultrasound documented in this encounter [facility] 08-08-2024 Telephone encounter Note Patient notified of results and provider's instructions. Patient verbalizes understanding. Rhina Salazar LPN [facility] 08-08-2024 Miscellaneous Notes Patient notified of results and provider's instructions. Patient verbalizes understanding. Rhina Salazar LPN Let patient know that her labs are stable. Urine shows infection. Will start treatment and recheck in 2 weeks. Brianna Patel PA-C documented in this encounter [facility] 08-08-2024 Telephone encounter Note Let patient know that her labs are stable. Urine shows infection. Will start treatment and recheck in 2 weeks. Brianna Patel PA-C [facility] 08-06-2024 Note [facility] 08-06-2024 History of Present illness Narrative Chief Complaint Patient presents with: Pre-Op Exam HPI Joyce Calvert is a 79 year old female who presents here today for Preop exam. Patient reports she will be having a lumbar fusion of L3-L4 and L4-L5 with decompression sometime in August. This is not scheduled yet. She has hx of HTN, hyperlipidemia, PVD, GERD, elevated A1c, carotid stenosis s/p endarterectomy in 2005. She follows with Vascular, pulm, and neuro. No recent chest pain, increasing shortness of breath, or new headaches. No pmh of CAD or AK. Past medical history, appointments, medications, allergies reviewed. Previous Medical History PAST MEDICAL HISTORY Diagnosis Date Abnormal mammogram, unspecified 2009 LEFT BREAST LESION biopsy neg Arthritis of knee 03/01/2013 Arthritis, lumbar spine 06/04/2018 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) 10/16/2017 Bilateral carotid artery stenosis 12/09/2019 Seeing Vascular: US 12/2019 Rt 20-40%, Lt 60-80% Chronic left-sided low back pain with left-sided sciatica 06/18/2018 COVID-19 virus infection 07/21/202106/2021 DDD (degenerative disc disease), cervical 08/30/2023 [facility] Degeneration of lumbar or lumbosacral intervertebral disc [...] file at physician's office 01/08/2023 DPA: Burton Calvert (). 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 Wilson at [facility] PAST SURGICAL HISTORY OF 07/19/2002 aorto- to [...] Prior to Visit Medication Sig DULoxetine (CYMBALTA) 30 mg capsule Take 1 capsule by mouth once daily. In the AM rosuvastatin (CRESTOR) 40 mg tablet Take 1 tablet by mouth every evening. celecoxib (CELEBREX) 200 mg capsule Take 1 capsule by mouth two times a day. pramipexole (MIRAPEX) 1 mg tablet Take 1 tablet by mouth two times a day. dilTIAZem CR (TIAZAC, TAZTIA XT) 180 mg 24 hr capsule Take 1 capsule by mouth once daily. potassium chloride ER (KLOR-CON) 20 mEq tablet Take 1 tablet by mouth two times a day. hydroCHLOROthiazide 25 mg tablet Take 1 tablet by mouth once daily. lansoprazole (PREVACID) 30 [...] Social History Tobacco Use Smoking status: Former Current packs/day: 0.00 Average packs/day: 1 pack/day for 43.6 years (43.6 ttl pk-yrs) Types: Cigarettes Start date: 1963 Quit date: 08/14/2006 Years since quittin.9 Smokeless tobacco: Never Tobacco comments: Parents smoked in childhood home. Spouse ex-smoker, did smoke early in marriage. Vaping Use Vaping status: Never Used Substance Use Topics Alcohol use: Yes Comment: [...] No history of dysuria, frequency or incontinence HEMATOLOGY/LYMPHOLOGY: Negative for prolonged bleeding, bruising easily or swollen nodes ENDOCRINE: Negative for cold or heat intolerance, polyuria, polydipsia and goiter NEURO: No history of headaches, syncope, paralysis, seizures or tremors EXAM: BP 145/69 (BP Site: Right Arm, BP Position: Sitting, BP Cuff Size: Large Adult) Pulse 70 Temp 36.2 C (97.2 F) Resp 18 Wt 69.9 kg (154 lb) SpO2 97% BMI 33.69 kg/m BP 133/72 (BP Site: Right Arm, BP Position: Sitting, BP Cuff Size: Large Adult) Pulse (!) 55 Temp 36.2 C (97.2 F) Resp 18 Wt 69.9 kg (154 lb) SpO2 97% BMI 33.69 kg/m General Appearance: Well appearing, alert, in no acute distress, well-hydrated, well nourished.. Eyes: Anicteric sclera. Pupils are equally round and reactive to light. Extraocular movements are intact. . Ears: External ears normal, canals clear, TMs pearly judge. Nose/Sinuses: Nares normal, septum midline, mucosa normal, no drainage or sinus tenderness. Oropharynx: Lips, mucosa, and tongue normal, teeth and gums normal, oropharynx normal. Neck: Supple, no adenopathy; thyroid symmetric, normal size, no bruits. Lungs: Lungs clear to auscultation. No wheezing, rhonchi, rales.. Heart: RRR without murmur, gallop, or rubs. No ectopy. Abdomen: Normal abdominal exam, Abdomen soft, non-tender. Bowel sounds normal. No masses, organomegaly. Extremities: No deformities, edema, skin discoloration, clubbing or cyanosis. Good capillary refill. . Peripheral Pulses: Normal. Neurologic: Gait normal. Reflexes normal and symmetric. Sensation grossly intact.. Health Maintenance List Anxiety Screening Never done DTaP,Tdap,Td Vaccine(1 - Tdap) due on 02/28/2025 Annual PCP Team Chronic Disease Visit due on 04/11/2025 BP Controlled (<130/80) due on 07/29/2025 Diabetes Screening due on 02/22/2027 Bone Density Screening Completed Influenza Vaccine Completed Advance Directive Discussion Completed RSV Vaccine Completed Shingrix Vaccine Completed Covid-19 Vaccine Completed Pneumococcal Vaccine: 65+ Completed Colorectal Cancer Screening Discontinued Data reviewed ECG: NSR Latest Ref Rng 08/06/2024 WBC 3.70 - 11.00 k/uL 9.22 RBC 3.90 - 5.20 m/uL 5.01 Hemoglobin 11.5 - 15.5 g/dL 15.9 (H) Hematocrit 36.0 - 46.0 % 48.0 (H) MCV 80.0 - 100.0 fL 95.8 MCH 26.0 - 34.0 pg 31.7 MCHC 30.5 - 36.0 g/dL 33.1 RDW-CV 11.5 - 15.0 % 13.5 Platelet Count 150 - 400 k/uL 149 (L) MPV 9.0 - 12.7 fL 11.6 Neut% % 69.7 Abs Neut (ANC) 1.45 - 7.50 k/uL 6.42 Lymph% % 20.7 Abs Lymph 1.00 - 4.00 k/uL 1.91 [place]% % 7.5 Abs [place] <0.87 k/uL 0.69 Eosin% % 1.4 Abs Eosin <0.46 k/uL 0.13 Baso% % 0.4 Abs Baso <0.11 k/uL 0.04 Immature Gran % % 0.3 IMMATURE GRANS (ABS) <0.10 k/uL 0.03 NRBC /100 WBC 0.0 Absolute nRBC <0.01 k/uL <0.01 DTYPE Auto Color Yellow Dark Yellow ! Clarity Clear Cloudy ! Glucose, Urine Negative Negative Bilirubin, Urine Negative Negative Ketones, Urine Negative Trace ! Specific [place], Ur 1.005 - 1.030 1.022 Hemoglobin/Blood,Ur Negative Trace ! pH, Urine <8.5 6.0 Protein, Urine Negative 1+ ! Urobilinogen 0.2-1.0 EU/dL 1.0 EU/dL Nitrites Negative Positive ! Leukest Negative 3+ ! WBC, Urine 0-5 /HPF >20 /HPF ! RBC, Urine 0-2 /HPF 11-20 /HPF ! Bacteria uL Negative uL >9,821 (H) Epithelial Cells /HPF Moderate Hyaline Cast 0 /LPF 4-10 /LPF ! Protein, Total 6.3 - 8.0 g/dL 6.8 Albumin 3.9 - 4.9 g/dL 3.9 Calcium 8.5 - 10.2 mg/dL 10.2 Bilirubin, Total 0.2 - 1.3 mg/dL 0.5 Alkaline Phosphatase 34 - 123 U/L 91 AST 13 - 35 U/L 35 ALT 7 - 38 U/L 17 Glucose 74 - 99 mg/dL 117 (H) BUN 7 - 21 mg/dL 23 (H) Creatinine 0.58 - 0.96 mg/dL 0.86 Sodium 136 - 144 mmol/L 141 Potassium 3.7 - 5.1 mmol/L 4.4 Chloride 98 - 107 mmol/L 105 CO2 22 - 30 mmol/L 22 Anion Gap 8 - 15 mmol/L 14 eGFR >=60 mL/min/1.73m 69 Hemoglobin A1C 4.3 - 5.6 % 5.4 Estimated Average Glucose mg/dL 108 Culture >=100,000 CFU/ml Escherichia coli ! Legend: (H) High (L) Low ! Abnormal ASSESSMENT/PLAN: 1. Pre-op exam - ICD9: V72.84, ICD10: Z01.818 (primary diagnosis) This is a moderate cardiac risk surgery based on the ACC/AHA classification of surgical procedures. Based on Sachin's cardiac risk index patient has a less than 0.4% risk of complication. Patient has a functional capacity of >4 METS which implies low Cardiovascular risk from surgery and does not require further cardiac testing. ECG wnl Labs wnl Urine shows infection. Will treat and repeat in 2 weeks. Patient is cleared to undergo lumbar Fusion and decompression from medical Standpoint. However, patient should also receive clearance from her fire prevention research engineer and vascular surgeon if surgeon requests. - ECG COMPLETE - URINE CULTURE - URINALYSIS, WITH MICROSCOPIC - COMPLETE BLOOD COUNT AND DIFFERENTIAL - COMPREHENSIVE METABOLIC PANEL 2. DDD (degenerative disc disease), lumbar - ICD9: 722.52, ICD10: M51.36 As above 3. Lumbosacral radiculopathy - ICD9: 724.4, ICD10: M54.17 As above 4. Essential hypertension with goal blood pressure less than 140/90 - ICD9: 401.9, ICD10: I10 - Controlled - Continue current medications - Recommend home blood pressure monitoring, to bring results to next visit - Encouraged sodium restriction, DASH or Mediterranean diet - Recommend regular aerobic exercise - URINALYSIS, WITH MICROSCOPIC - COMPLETE BLOOD COUNT AND DIFFERENTIAL - COMPREHENSIVE METABOLIC PANEL 5. PVD (peripheral vascular disease) (HCC) - ICD9: 443.9, ICD10: I73.9 No new issues 6. Elevated hemoglobin A1c - ICD9: 790.29, ICD10: R73.09 - HEMOGLOBIN A1C 7. Class 2 severe obesity due to excess calories with serious comorbidity and body mass index (BMI) of 35.0 to 35.9 in adult (HCC) - ICD9: 278.01, V85.35, ICD10: E66.01, Z68.35 Stable 8. 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 oxygen therapy - ICD9: V46.2, ICD10: Z99.81 Cont with pulm 9. 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 Lorraine Haji MA [facility] 07-29-2024 Miscellaneous Notes Patient notified of results. Lorraine Haji MA Please inform patient that knee x-ray is normal. Follow-up with orthopedics as discussed. Marcelo Mckeon APRN.CNP documented in this encounter [facility] 07-29-2024 Telephone encounter Note Please inform patient that knee x-ray is normal. Follow-up with orthopedics as discussed. Marcelo Mckeon APRN.CNP [facility] Work Phone: 07-29-2024 History of Present illness Narrative Radiology Service Progress Note PATIENT NAME: Joyce Calvert DATE OF SERVICE: July 29, 2024 TIME: 10:17 AM PATIENT IDENTITY VERIFICATION COMPLETED USING TWO (2) IDENTIFIERS: Name and Date of confirmed by patient verbally. FALL SCREENING: Has the patient had 2 falls in the last year or 1 fall with injury or currently using an Ambulatory Assistive Device (Walker, Cane, Wheelchair, Crutches, etc.)? No PATIENT GENDER DATA: Female. status: : No status: NO. PATIENT RELEVANT IMPLANT DATA REVIEWED: Yes PATIENT PRESENTS WITH AN IMPLANTABLE OR ATTACHED ROPE RIDER: No RADIOLOGY DEPARTMENT: General X-ray: Exam(s) Completed: Lower Extremity X-Ray(s): Knee, AP / Lat / Tunne / Merchant Left and Wt. Bearing PERIPHERAL IV DATA: Not applicable SIGNED BY: RT Marcio(R) July 29, 2024 10:17 AM documented in this encounter [facility] 07-29-2024 Note [facility] 07-29-2024 Note [facility] 07-29-2024 History of Present illness Narrative Subjective HPI Nontoxic-appearing female presents urgent care chief complaint left knee pain. Duration of symptoms 2 months. Associated symptoms left knee pain. Presents today due to persistent pain. Does not feel like it is worsening. Does not feel like it is improving. Has used a heating pad this has not helped. History of knee replacement. No known injuries. No current weakness numbness or tingling. Past medical history prescription medications allergies reviewed. .Patient presents with: Knee Pain: left x 2 months PAST MEDICAL HISTORY Diagnosis Date Abnormal mammogram, unspecified 2009 LEFT BREAST LESION biopsy neg Arthritis of knee 03/01/2013 Arthritis, lumbar spine 06/04/2018 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) 10/16/2017 Bilateral carotid artery stenosis 12/09/2019 Seeing Vascular: US 12/2019 Rt 20-40%, Lt 60-80% Chronic left-sided low back pain with left-sided sciatica 06/18/2018 COVID-19 virus infection 07/21/202106/2021 DDD (degenerative disc disease), cervical 08/30/2023 [facility] Degeneration of lumbar or lumbosacral intervertebral disc [...] file at physician's office 01/08/2023 DPA: Burton Calvert (). 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 Wilson at [facility] PAST SURGICAL HISTORY OF 07/19/2002 aorto- to [...] Lipitor [Atorvastatin Calcium], and Poison [place] MEDICATIONS DULoxetine (CYMBALTA) 30 mg capsule Take 1 capsule by mouth once daily. In the AM rosuvastatin (CRESTOR) 40 mg tablet Take 1 tablet by mouth every evening. celecoxib (CELEBREX) 200 mg capsule Take 1 capsule by mouth two times a day. pramipexole (MIRAPEX) 1 mg tablet Take 1 tablet by mouth two times a day. dilTIAZem CR (TIAZAC, TAZTIA XT) 180 mg 24 hr capsule Take 1 capsule by mouth once daily. potassium chloride ER (KLOR-CON) 20 mEq tablet Take 1 tablet by mouth two times a day. hydroCHLOROthiazide 25 mg tablet Take 1 tablet by mouth once daily. lansoprazole (PREVACID) 30 [...] Social History Tobacco Use Smoking status: Former Current packs/day: 0.00 Average packs/day: 1 pack/day for 43.6 years (43.6 ttl pk-yrs) Types: Cigarettes Start date: 1963 Quit date: 08/14/2006 Years since quittin.9 Smokeless tobacco: Never Tobacco comments: Parents smoked in childhood home. Spouse ex-smoker, did smoke early in marriage. Vaping Use Vaping status: Never Used Substance Use Topics Alcohol use: Yes Comment: rarely Drug use: No BP 124/72 Pulse 70 Temp 36.8 C (98.2 F) Resp 16 Wt 69.9 kg (154 lb 1.6 oz) SpO2 95% BMI 33.71 kg/m Review of Systems Constitutional: Negative for chills, fever and malaise/fatigue. HENT: Negative for congestion, ear discharge, ear pain, sinus pain and sore throat. Eyes: Negative for blurred vision, pain, discharge and redness. Respiratory: Negative for cough, hemoptysis, sputum production, shortness of breath, wheezing and stridor. Cardiovascular: Negative for chest pain. Gastrointestinal: Negative for abdominal pain, diarrhea, nausea and vomiting. Musculoskeletal: Positive for joint pain. Negative for falls and myalgias. Skin: Negative for itching and rash. Neurological: Negative for dizziness and headaches. Objective Physical Exam Constitutional: General: She is not in acute distress. Appearance: She is not toxic-appearing. HENT: Head: Normocephalic. Nose: Nose normal. Eyes: Pupils: Pupils are equal, round, and reactive to light. Cardiovascular: Rate and Rhythm: Normal rate. Pulmonary: Effort: Pulmonary effort is normal. No respiratory distress. Musculoskeletal: Cervical back: Normal range of motion. Left upper leg: Normal. Left knee: No swelling, deformity, effusion, erythema, ecchymosis or bony tenderness. Normal range of motion. Tenderness present. No medial joint line, lateral joint line or patellar tendon tenderness. Left lower leg: Normal. Skin: General: Skin is warm and dry. Neurological: General: No focal deficit present. Mental Status: She is alert. ASSESSMENT/PLAN: 1. Acute pain of left knee - ICD9: 719.46, ICD10: M25.562 - XR KNEE GENERAL 4V AP BOTH/PA BOTH/LAT/MERC LEFT IMPRESSION: LEFT total knee arthroplasty without complication. Diagnosed with acute left knee pain. No acute findings noted on x-ray. Will follow-up with orthopedic surgeon as discussed. Patient was educated on supportive therapies. Patient will follow up with primary care provider as needed. Patient was instructed to immediately proceed to emergency room for any new, worsening, or symptoms lasting longer than anticipated. The patient's clinical presentation is otherwise unremarkable at this time. Based on exam and clinical finding, the patient is stable for discharge. Plan of care was discussed with patient. Patient verbalizes understanding and agrees to plan of care. This note was generated using [employer] software. It may contain errors in wording, punctuation, or spelling. Marcelo Mckeon APRN.THELMA documented in this encounter [facility] 07-22-2024 Telephone encounter Note Pt called and is notified of providers message and instructions. Pt voices understanding. Thelma Stockton RN [facility] 07-22-2024 Miscellaneous Notes Pt called and is notified of providers message and instructions. Pt voices understanding. Thelma Stockton RN Images from the original note were not included. Let patient know per Dr. Emmanuel's Office note he only mentions getting clearance from her PCP, vascular provider and her fire prevention research engineer. No mention of needing to see cardiology. See last three lines from Dr. Emmanuel's office note below. Pt called in and reports she has to have a cardiology consult before her back surgery. She states she needs a referral from her PCP as she doesn't have a Mechatronics Engineer. Pt states they are looking at the end of August for her back surgery. Pt saw Brianna HO on 04/11/24 and will see her on 08/06/24 for her pre-op clearance. I was asking if provider would put in consult for Pt or if she would need to come in for an appointment to have this done. Please call and advise. documented in this encounter [facility] 07-22-2024 Telephone encounter Note Images from the original note were not included. Let patient know per Dr. Emmanuel's Office note he only mentions getting clearance from her PCP, vascular provider and her fire prevention research engineer. No mention of needing to see cardiology. See last three lines from Dr. Emmanuel's office note below. [facility] 07-22-2024 Telephone encounter Note Pt called in and reports she has to have a cardiology consult before her back surgery. She states she needs a referral from her PCP as she doesn't have a Mechatronics Engineer. Pt states they are looking at the end of August for her back surgery. Pt saw Brianna Patel PA on 04/11/24 and will see her on 08/06/24 for her pre-op clearance. I was asking if provider would put in consult for Pt or if she would need to come in for an appointment to have this done. Please call and advise. [facility] 07-22-2024 Telephone encounter Note Left message with [facility] for clearance request and operative information to be faxed to our office. Sumaya Moran LPN [facility] 07-22-2024 Miscellaneous Notes Left message with [facility] for clearance request and operative information to be faxed to our office. Sumaya Moran LPN Patient phoned to reports Dr Obregon will be requesting presurgical clearnace for her upcoming surgery. Maureen Mccartney MA documented in this encounter [facility] 07-22-2024 Telephone encounter Note Patient phoned to reports Dr Obregon will be requesting presurgical clearnace for her upcoming surgery. Maureen Mccartney MA [facility] 07-19-2024 Note HNO ID: [id number] Author: RHINA SALAZAR LPN Service: ? Author Type: LICENSED NURSE Type: Progress Notes Filed: 07/19/2024 09:04 Note Text: Scan on 07/19/2024 8:41 AM by ProviderHenrique PA-C: Consultation - Orthopedics [facility] 07-19-2024 History of Present illness Narrative Scan on 07/19/2024 8:41 AM by Henrique Thornton PA-C: Consultation - Orthopedics documented in this encounter [facility] 07-10-2024 Note HNO ID: [id number] Author: RHINA SALAZAR LPN Service: ? Author Type: LICENSED NURSE Type: Progress Notes Filed: 07/10/2024 07:53 Note Text: Scan on 07/09/2024 4:52 PM by ProviderHenrique PA-C: MRI [facility] 07-10-2024 History of Present illness Narrative Scan on 07/09/2024 4:52 PM by Henrique Thornton PA-C: MRI documented in this encounter [facility] 06-19-2024 Telephone encounter Note Request is being addressed in another refill encounter. Rhina Salazar LPN [facility] 06-19-2024 Miscellaneous Notes Request is being addressed in another refill encounter. Rhina Salazar LPN documented in this encounter [facility] 06-19-2024 Telephone encounter Note Prescription Refill Information The patient has been identified by name and date of : Yes Caregiver verified no other encounters exist for this prescription request: Yes Caregiver confirmed with patient/requestor that no other refills are due, in the near future, with this provider at this time: Yes The last office visit in the department: 04/11/24 Does the patient have a future office visit with this provider/department: Yes Requested Prescriptions Pending Prescriptions Disp Refills DULoxetine (CYMBALTA) 30 mg capsule 90 capsule 1 Sig: Take 1 capsule by mouth once daily. In the AM rosuvastatin (CRESTOR) 40 mg tablet 90 tablet 1 Sig: Take 1 tablet by mouth every evening. Rhina Salazar LPN June 19, 2024 7:16 AM [facility] 06-19-2024 Miscellaneous Notes Prescription Refill Information The patient has been identified by name and date of : Yes Caregiver verified no other encounters exist for this prescription request: Yes Caregiver confirmed with patient/requestor that no other refills are due, in the near future, with this provider at this time: Yes The last office visit in the department: 04/11/24 Does the patient have a future office visit with this provider/department: Yes Requested Prescriptions Pending Prescriptions Disp Refills DULoxetine (CYMBALTA) 30 mg capsule 90 capsule 1 Sig: Take 1 capsule by mouth once daily. In the AM rosuvastatin (CRESTOR) 40 mg tablet 90 tablet 1 Sig: Take 1 tablet by mouth every evening. Rhina Salazar LPN June 19, 2024 7:16 AM documented in this encounter [facility] 05-10-2024 Telephone encounter Note The following approved medication requests have been transmitted electronically. Requested Prescriptions Signed Prescriptions Disp Refills celecoxib (CELEBREX) 200 mg capsule 180 capsule 1 Sig: Take 1 capsule by mouth two times a day. Authorizing Provider: MARCELO ACOSTA MD [facility] 05-10-2024 Miscellaneous Notes The following approved medication requests have been transmitted electronically. Requested Prescriptions Signed Prescriptions Disp Refills celecoxib (CELEBREX) 200 mg capsule 180 capsule 1 Sig: Take 1 capsule by mouth two times a day. Authorizing Provider: MARCELO ACOSTA MD Patient MyChart message requesting the following refill Refill(s) Requested: Requested Prescriptions Pending Prescriptions Disp Refills celecoxib (CELEBREX) 200 mg capsule 180 capsule 1 Sig: Take 1 capsule by mouth two times a day. ALLERGIES Allergen Reactions Demerol [Meperidine* Swelling tongue swelled Lisinopril GI Upset Ceclor [Cefaclor] Other: See Comments heart palpitations Doxycycline GI Upset Grass Pollen Itching Lipitor [Atorvastat* Intolerance, GI Upset Nauseated. Like I had the flu all the time Poison [facility] (home) [phone] (cell) Last Office Visit Date: 04/11/2024 Last Distance Health Visit: Visit date not found Future Appointment: 09/17/2024 The patients preferred pharmacy has been captured for this encounter? yes Request is for script(s) to be escript to pharmacy. Tory Martinez LPN documented in this encounter [facility] 05-10-2024 Telephone encounter Note Patient MyChart message requesting the following refill Refill(s) Requested: Requested Prescriptions Pending Prescriptions Disp Refills celecoxib (CELEBREX) 200 mg capsule 180 capsule 1 Sig: Take 1 capsule by mouth two times a day. ALLERGIES Allergen Reactions Demerol [Meperidine* Swelling tongue swelled Lisinopril GI Upset Ceclor [Cefaclor] Other: See Comments heart palpitations Doxycycline GI Upset Grass Pollen Itching Lipitor [Atorvastat* Intolerance, GI Upset Nauseated. Like I had the flu all the time Poison [facility] (home) [phone] (cell) Last Office Visit Date: 04/11/2024 Last Distance Health Visit: Visit date not found Future Appointment: 09/17/2024 The patients preferred pharmacy has been captured for this encounter? yes Request is for script(s) to be escript to pharmacy. Tory Martinez LPN [facility] 04-19-2024 Note [facility] 04-19-2024 History of Present illness Narrative Images from the original note were not included. Episode Visit Count: 1 Therapist That Will Accept/Oversee The Plan Of Care: Ketan Baca Start of Care Date: 04/18/24 Onset Date: 11/13/23 Plan of Care Certification Date: 04/18/24 Next Certification Due Date: 07/19/24 Patient Identified by Name and Date of : Yes RE[facility]AB[facility]ORTS THERAPY PHYSICAL THERAPY EVALUATION PLAN OF CARE: Assessment: Joyce Calvert presents with chief complaint of LBP with L sided sciatica that interferes with rising from a chair, standing, walking, bending, heavy exertion, lifting, physical activities . She presents with impairments in ADL's, overall function, strength, and symptom management. PROMIS (Patient-Reported Outcomes Measurement Information System) scores were reviewed and identified as within normal limits. Prognosis for therapy is Good due to: current objective clinical presentation, positive past response to therapy, good support system/ coping skills . She will benefit from skilled therapy services to meet the goals established for this plan of care as noted below. Classification Pain Mechanism Classification: Nociceptive Low Back Pain Classification: Functional Optimization Goals for Episode of Care: created on 04/18/24 through 06/19/24 Independent in home exercises. Patient will decrease pain to 0/10 with functional activities to allow patient to improve standing tolerance for ADLs. Stand / Walk as needed for ADLs and self care without pain/symptoms. Sleep through night without pain/symptoms. Maintain proper sitting posture throughout session Patient will increase strength of trunk/core to 4/5 to allow for improve ability to complete ADLs. Planned Interventions, Frequency, and Duration: Current Frequency: 1x/week Duration: 8 weeks Total Number of Visits Planned: 8 Planned Treatment Interventions: Therapeutic exercise (78141), Neuromuscular re-education (61835), Manual therapy (23116), Therapeutic activities (90104), Self-nursing home management (07741), Patient/Family/Caregiver Education, Body Mechanics Training PLAN FOR NEXT VISIT: Continue flexion bias, traction f radicular symptoms and neutral spine strengthening Patient demonstrates good understanding of plan of care and treatment. The above goals and plan of care were discussed and agreed upon by patient/family. SUBJECTIVE: Patient reports sciatic symptoms down LLE for months now Functional Limitations: rising from a chair, standing, walking, bending, heavy exertion, lifting, physical activities Prior Level of Function: Independent without limitations Pain: Pain Pain Level: 0 (8/10 at worst, today no pain) Pain Location: Low Back/Lumbar Spine - Left, Leg - Left Description: Shooting Frequency: Intermittent PROMIS Scales 04/17/2024 04/08/2020 04/06/2020 Higher is Better Phys Func - Score 40 (mild dysfunction) 39 (moderate dysfunction) Phys Func - Percentile 16 14 Self-Eff Symptom - Score 48 (Average) Self-Eff Symptom - Percentile 42 T-scores: mean of general population = 50. 5 points is clinically meaningfully difference Percentiles provide an indication of how the patient's score ranks in relation to the general population. Higher percentile rankings indicate better function/quality of life. 50th percentile is the average of the general population and indicates half of respondents had a worse score. OBJECTIVE MEASURES WITH LEVEL OF FUNCTION: Lumbar Spine AROM Lumbar Flexion: Normal Lumbar Extension: Moderate limitation Lumbar R Side-Bend: Normal Lumbar L Side-Bend: Normal Lumbar R Rotation: Minimal limitation Lumbar L Rotation: Minimal limitation Repeated Test Movements - Lumbar RFIL - Symptoms During: decreases RFIL - Symptoms After: better ( That feels really good ) LE Strength Trunk Strength: 3+/5 R LE Strength: 4+/5 L LE Strength: 4+/5 Special Tests - Hip and Spine Hip and Spine Special Tests: SLR Test SLR Test: Left Positive, Right Positive Education: Education Learning/educational needs: Home exercise program, Plan of Care, Changes in Plan of Care, Body Mechanics TREATMENT: PT Treatment Interventions: Therapeutic Exercise Evaluation Therapeutic Exercise: 1: *SKC 3x30 sec/side 2: *DKC 3x30 sec 3: *PPT 3x10, 5 sec holds 4: Discussed her self prescribed exercises, what to continue and what to cease Skilled Intervention: Patient was educated in proper exercise technique and purpose for exercises. Skilled judgment was used in selection of appropriate interventions. Provided written instruction for home exercise program to facilitate proper performance and compliance. Correct performance of therapeutic exercises was facilitated with verbal, visual, and tactile cuing. Billing * Evaluation Low Complexity: 1 Unit Therapeutic Exercise Treatment Minutes: 10 Skilled Treatment Time Minutes (timed and untimed codes): 40 Total Session Time (minutes): 40 Session Start Time : 1135 Session Stop Time : 1215 Physical Therapy Evaluation Ketan Baca PT Program_ID:[id number] Access Code: [email or web address] URL: [email or web address] Date: 04-18-2024 Prepared By: Ketan Baca Program Notes Exercises - Hooklying Single Knee to Chest - 1 x daily - 7 x weekly - 3 sets - 3 reps - Supine Double Knee to Chest - 1 x daily - 7 x weekly - 3 sets - 3 reps - Supine Posterior Pelvic Tilt - 1 x daily - 7 x weekly - 3 sets - 10 reps documented in this encounter [facility] 04-12-2024 Telephone encounter Note Patient was notified Maria Esther Medina MA [facility] 04-12-2024 Miscellaneous Notes Patient was notified Maria Esther Medina MA Let patient know that her one inflammatory marker was just mildly elevated. I will put her on prednisone taper. I'm still waiting on one lab result documented in this encounter [facility] 04-12-2024 Telephone encounter Note Let patient know that her one inflammatory marker was just mildly elevated. I will put her on prednisone taper. I'm still waiting on one lab result [facility] 04-11-2024 Instructions Brianna Patel PA-C - 04/11/2024 12:07 PM EDT Labs today Set up with rheumatology I am deferring care to Pain management for you sciatica symptoms. Please contact Dr. Lanier For memory and Restless leg/twitching symptom- please contact Dr. Finnegan's office for further evaluation. documented in this encounter [facility] 04-11-2024 Note [facility] 04-11-2024 History of Present illness Narrative Chief Complaint Patient presents with: Pain: Pain in legs, arms, shoulders, history of polyneuropathy, sciatica X 2 days HPI Joyce Calvert is a 79 year old female who presents here today for Above Complaints.. Patient with hx of Neuropathy, RLS, and chronic back pain with sciatica. She has recently seen pain management who is having her start Physical Therapy. She feels like something more is going on. She reports hx of PMR but has not seen specialist for this in years. She states she has pain in her hips and shoulders. Upper arms. thighs Past medical history, appointments, medications, allergies reviewed. Previous Medical History PAST MEDICAL HISTORY Diagnosis Date Abnormal mammogram, unspecified 2009 LEFT BREAST LESION biopsy neg Arthritis of knee 03/01/2013 Arthritis, lumbar spine 06/04/2018 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) 10/16/2017 Bilateral carotid artery stenosis 12/09/2019 Seeing Vascular: US 12/2019 Rt 20-40%, Lt 60-80% Chronic left-sided low back pain with left-sided sciatica 06/18/2018 COVID-19 virus infection 07/21/202106/2021 DDD (degenerative disc disease), cervical 08/30/2023 [facility] Degeneration of lumbar or lumbosacral intervertebral disc [...] file at physician's office 01/08/2023 DPA: Burton Calvert (). 2nd- Maureen and Gabbi (both daughters) [...] NEEDLE OR INTRACATHETER UPR/LXTR ARTERY 05/02/2007 RIGHT PARQUET FLOOR L[employer]'S HELPER INTRO OF NEEDLE OR INTRACATHETER UPR/LXTR ARTERY 05/02/2007 LEFT PARQUET F[employer]S HELPER INTRO OF NEEDLE OR INTRACATHETER UPR/LXTR ARTERY Right 12/15/2016 [facility] INTRODUCTION CATHETER AORTA 05/01/2007 INTRODUCTION CATHETER AORTA 05/02/2007 MAJOR JOINT INJECTION (SHOULDER,HIP,KNEE) Left 02/21/2023 shoulder- Dr. Wilson at [facility] PAST SURGICAL HISTORY OF 07/19/2002 aorto- to [...] Prior to Visit Medication Sig pramipexole (MIRAPEX) 1 mg tablet Take 1 tablet by mouth two times a day. dilTIAZem CR (TIAZAC, TAZTIA XT) 180 mg 24 hr capsule Take 1 capsule by mouth once daily. potassium chloride ER (KLOR-CON) 20 mEq tablet Take 1 tablet by mouth two times a day. hydroCHLOROthiazide 25 mg tablet Take 1 tablet by mouth once daily. celecoxib (CELEBREX) 200 mg capsule Take 1 capsule by mouth two times a day. lansoprazole (PREVACID) 30 mg capsule Take 1 capsule by mouth once daily. DULoxetine (CYMBALTA) 60 mg capsule Take 1 capsule by mouth once daily. In the evening rosuvastatin (CRESTOR) 40 mg tablet Take 1 tablet by mouth every evening. DULoxetine (CYMBALTA) 30 mg capsule Take 1 capsule by mouth once daily. In the AM Blood Pressure Test Kit-Large (QUICK RESPONSE BP [...] Take 1 tablet by mouth once daily. gabapentin (NEURONTIN) 100 mg capsule TWICE A DAY (Patient not taking: Reported on 02/29/2024) No current facility-administered medications on file prior to visit. Social History Social History Tobacco Use Smoking status: Former Packs/day: 1.00 Years: 43.00 Additional pack years: 0.00 Total pack years: 43.00 Types: Cigarettes Start date: 1963 Quit date: 08/14/2006 Years since quittin.6 Smokeless tobacco: Never Tobacco comments: Parents smoked in childhood home. Spouse ex-smoker, did smoke early in marriage. Vaping Use Vaping Use: Never used Substance Use Topics Alcohol use: Yes Comment: rarely Drug use: No Review of Symptoms REVIEW OF SYSTEMS See hpi EXAM: BP 144/77 (BP Site: Right Arm, BP Position: Sitting, BP Cuff Size: Large Adult) Pulse 87 Temp 37.2 C (99 F) Resp 18 Wt 70.3 kg (155 lb) SpO2 95% BMI 33.91 kg/m General Appearance: Well appearing, alert, in no acute distress, well-hydrated, well nourished.. Health Maintenance List BP Controlled (<130/80) due on 02/23/2023 Covid-19 Vaccine( season) due on 08/28/2023 DTaP,Tdap,Td Vaccine(1 - Tdap) due on 02/28/2025 Annual PCP Team Chronic Disease Visit due on 03/14/2025 Diabetes Screening due on 02/22/2027 Bone Density Screening Completed Influenza Vaccine Completed Advance Directive Discussion Completed RSV Vaccine Completed Shingrix Vaccine Completed Pneumococcal Vaccine: 65+ Completed Colorectal Cancer Screening Discontinued Data reviewed ASSESSMENT/PLAN: 1. History of polymyalgia rheumatica - ICD9: V13.59, ICD10: Z87.39 (primary diagnosis) Will check labs and set up with rheumatology for evaluation If inflammatory markers are elevated, will consider prednisone - MJ BY IFA WITH REFLEX - RHEUMATOID FACTOR - SEDIMENTATION RATE, WESTERGREN - C-REACTIVE PROTEIN - CONSULT TO RHEUM/IMMUN DISEASE 2. Myalgia - ICD9: 729.1, ICD10: M79.10 As above. - MJ BY IFA WITH REFLEX - RHEUMATOID FACTOR - SEDIMENTATION RATE, WESTERGREN - C-REACTIVE PROTEIN - CONSULT TO RHEUM/IMMUN DISEASE For recurring sciatica pain I have asked to reach out to pain management. For twitching and RLS, I have asked patient to reach out to neuro. Brianna Patel PA-C documented in this encounter [facility] 03-18-2024 Telephone encounter Note Patient has been identified by name and date of : Yes Patient phones for refill(s): Requested Prescriptions Pending Prescriptions Disp Refills pramipexole (MIRAPEX) 1 mg tablet 180 tablet 1 Sig: Take 1 tablet by mouth two times a day. dilTIAZem CR (TIAZAC, TAZTIA XT) 180 mg 24 hr capsule 90 capsule 1 Sig: Take 1 capsule by mouth once daily. potassium chloride ER (KLOR-CON) 20 mEq tablet 180 tablet 3 Sig: Take 1 tablet by mouth two times a day. hydroCHLOROthiazide 25 mg tablet 90 tablet 1 Sig: Take 1 tablet by mouth once daily. Date of last office visit in primary care: 03/14/2024 Date of next office visit in primary care: 09/17/24 Please advise. Thank you. Erica Spring MA. [facility] 03-18-2024 Miscellaneous Notes Patient has been identified by name and date of : Yes Patient phones for refill(s): Requested Prescriptions Pending Prescriptions Disp Refills pramipexole (MIRAPEX) 1 mg tablet 180 tablet 1 Sig: Take 1 tablet by mouth two times a day. dilTIAZem CR (TIAZAC, TAZTIA XT) 180 mg 24 hr capsule 90 capsule 1 Sig: Take 1 capsule by mouth once daily. potassium chloride ER (KLOR-CON) 20 mEq tablet 180 tablet 3 Sig: Take 1 tablet by mouth two times a day. hydroCHLOROthiazide 25 mg tablet 90 tablet 1 Sig: Take 1 tablet by mouth once daily. Date of last office visit in primary care: 03/14/2024 Date of next office visit in primary care: 09/17/24 Please advise. Thank you. Erica Spring MA. documented in this encounter [facility] 03-14-2024 Note [facility] 03-14-2024 History of Present illness Narrative Chief Complaint Patient presents with: Blood Pressure Check HPI Joyce Calvert is a 79 year old female who presents here today for Above Complaints.. Patient had elevated BP reading at last visit. Home readings for the past couple weeks has been 130-140/50-60 No other concerns today. Past medical history, appointments, medications, allergies reviewed. Previous Medical History PAST MEDICAL HISTORY Diagnosis Date Abnormal mammogram, unspecified 2009 LEFT BREAST LESION biopsy neg Arthritis of knee 03/01/2013 Arthritis, lumbar spine 06/04/2018 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) 10/16/2017 Bilateral carotid artery stenosis 12/09/2019 Seeing Vascular: US 12/2019 Rt 20-40%, Lt 60-80% Chronic left-sided low back pain with left-sided sciatica 06/18/2018 COVID-19 virus infection 07/21/202106/2021 DDD (degenerative disc disease), cervical 08/30/2023 [facility] Degeneration of lumbar or lumbosacral intervertebral disc [...] file at physician's office 01/08/2023 DPA: Burton Calvert (). 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 Wilson at [facility] PAST SURGICAL HISTORY OF 07/19/2002 aorto- to [...] 09/02/2014 SLCTV CATHJ 1ST 2ND ORD [facility] 09/07/2006 RIGHT SLCTV CATHJ 1ST 2ND ORD [...] mg capsule Take 1 capsule by mouth two times a day. dilTIAZem CR (TIAZAC, TAZTIA XT) 180 mg 24 hr capsule Take 1 capsule by mouth once daily. lansoprazole (PREVACID) 30 mg capsule Take 1 capsule by mouth once daily. hydroCHLOROthiazide 25 mg tablet Take 1 tablet by mouth once daily. pramipexole (MIRAPEX) 1 mg tablet Take 1 tablet by mouth two times a day. DULoxetine (CYMBALTA) 60 mg capsule Take 1 capsule by mouth once daily. In the evening rosuvastatin (CRESTOR) 40 mg tablet Take 1 tablet by mouth every evening. potassium chloride ER (KLOR-CON) 20 mEq tablet Take 1 tablet by mouth twice daily. DULoxetine (CYMBALTA) 30 mg capsule Take 1 capsule by mouth once daily. In the AM Blood Pressure Test Kit-Large (QUICK RESPONSE BP [...] Take 1 tablet by mouth once daily. gabapentin (NEURONTIN) 100 mg capsule TWICE A DAY (Patient not taking: Reported on 02/29/2024) No current facility-administered medications on file prior [...] Review of Symptoms REVIEW OF SYSTEMS See hpi EXAM: BP 149/74 (BP Site: Right Arm, BP Position: Sitting, BP Cuff Size: Regular Adult) Pulse 68 Temp 37.1 C (98.7 F) (Right Tympanic) Resp 24 Wt 72.6 kg (160 lb) SpO2 94% BMI 35.00 kg/m BP 138/68 Pulse 68 Temp 37.1 C (98.7 F) (Right Tympanic) Resp 24 Wt 72.6 kg (160 lb) SpO2 94% BMI 35.00 kg/m General Appearance: Well appearing, alert, in no acute distress, well-hydrated, well nourished..obese Health Maintenance List BP Controlled (<130/80) due on 02/23/2023 Covid-19 Vaccine(2022- season) due on 08/28/2023 DTaP,Tdap,Td Vaccine(1 - Tdap) due on 02/28/2025 Annual PCP Team Chronic Disease Visit due on 02/28/2025 Diabetes Screening due on 02/22/2027 Bone Density Screening Completed Influenza Vaccine Completed Advance Directive Discussion Completed RSV Vaccine Completed Shingrix Vaccine Completed Pneumococcal Vaccine: 65+ Completed Colorectal Cancer Screening Discontinued Data reviewed ASSESSMENT/PLAN: 1. Essential hypertension with goal blood pressure less than 140/90 - ICD9: 401.9, ICD10: I10 - Improving control - Continue current medications - Recommend home blood pressure monitoring, to bring results to next visit - Encouraged sodium restriction, DASH or Mediterranean diet - Recommend regular aerobic exercise Brianna Patel PA-C documented in this encounter [facility] 02-29-2024 Instructions Brianna Patel PA-C - 02/29/2024 10:52 AM EDT Please contact your pain specialist to see if they will treat your Sciatic pain. Get the [employer] gladys on your phone and create an account. You will save more that way on most medications. Or you can just use the card I gave you to get Celebrex. Repeat Urine around 03/11/2024 WHAT YOU CAN DO TO PREVENT FALLS Many falls can be prevented. By making some changes, you can lower your chances of falling. Four things YOU can do to prevent falls for you* and your caregiver 1. Begin a regular exercise program Exercise is one of the most important ways to lower your chances of falling. It makes you stronger and helps you feel better. Exercises that improve balance and coordination (like Eduar Chi) are the most helpful. Lack of exercise leads to weakness and increases your chances of falling. Ask your doctor or health care provider about the best type of exercise program for you. 2. Have your health care provider review your medicines Have your doctor or pharmacist review all the medicines you take, even iyec-zxf-clawawl medicines. As you get older, the way medicines work in your body can change. Some medicines, or combinations of medicines, can make you sleepy or dizzy and can cause you to fall. 3. Have your vision checked Have your eyes checked by an eye doctor at least once a year. You may be wearing the wrong glasses or have a condition like glaucoma or cataracts that limits your vision. Poor vision can increase your chances of falling. 4. Make your home safer About half of all falls happen at home. To make your home safer: Remove things you can trip over (like papers, books, clothes, and shoes) from stairs and places where you walk. Remove small throw rugs or use double-sided tape to keep the rugs from slipping. Keep items you use often in cabinets you can reach easily without using a step stool. Have grab bars put in next to your toilet and in the tub or shower. Use non-slip mats in the bathtub and on shower floors. Improve the lighting in your home. As you get older, you need brighter lights to see well. Hang light-weight curtains or shades to reduce glare. Have handrails and lights put in on all staircases. Wear shoes both inside and outside the house. Avoid going barefoot or wearing slippers. For more information, contact: Centers for Disease Control and Prevention www.cdc.gov/injury * This information may not apply if you have certain medical conditions. documented in this encounter [facility] 02-29-2024 Note [facility] 02-29-2024 History of Present illness Narrative Images from the original note were not included. Joyce Calvert is a 79 year old female here for a Medicare wellness visit. Medicare Health Risk Assessment General Health Good Exercise: Minutes/Day Stays active and walks daily Exercise: Days/Week 3x/week average. Goal is daily Alcohol: Daily Use seldom Alcohol: Drinks/Day no Alcohol: 6 or more drinks no Feel off balance no Concerns: Teeth/Dentures no Concerns: Sexual function no Troubled by feelings no Frequency: Eating healthy diet yes ADLs requiring help no Safety precautions in home/vehicle yes Smoke, vape, chews tobacco no Difficulty hearing yes Difficulty seeing no Current Providers Specialists: I have reviewed specialist-related care of the patient in the medical record. Medical/Family history review Reviewed and updated problem list, medical/surgical/family/social history, medications, and allergies. Opioid use review Opioid Medications (last 90 days) No data to display Depression screening Depression Screening PHQ-2 Score PHQ-9 Score 01/03/2023 0 2 Depression screening tool completed and reviewed. Based on score and interview, patient is already diagnosed with depression. Screening tool discussed with patient, and I recommended no further intervention at this time. Cognitive screening Patient with known memory deficits and working with neurology. Cognitive screening reviewed and recommended referral for further evaluation (score 0-2)- seeing neuro. Functional Observation Was the patient's Timed Up & Go test unsteady or ? 12 seconds? No Advance Care Planning Surrogate decision maker and/or advance care plan documented Measurements BP 142/84 Pulse 70 Resp 18 Ht 4' 8.693 (1.44m) Wt 161 lb (73.0kg) SpO2 95% BMI 35.22 kg/(m^2). Vision Screening: Follows with optometry/ophthalmology Assessment/Plan Medicare annual wellness visit, subsequent (Z00.00) - Counseled on healthy diet and regular exercise - Fall avoidance information provided - Personalized prevention plan provided Chief Complaint Patient presents with: Medicare Wellness Exam HPI Joyce Calvert is a 79 year old female who presents here today for extensive exam. Patient with HTN, hyperlipidemia, PVD, GERD, frequent UTIs, elevated A1c, DDD, OA, depression, memory deficit, and those as below. Patient having continued sciatica pain. Seen EC. Was given round of medrol pack. Last 10 Encounter BP Readings: Date: BP: 02/29/2024 142/84 01/29/2024 144/82 12/25/2023 167/60 11/22/2023 122/72 11/22/2023 104/60 11/21/2023 136/80 10/03/2023 128/76 08/30/2023 136/74 02/27/2023 120/70 12/30/2022 146/70 Past medical history, appointments, medications, allergies reviewed. Previous Medical History PAST MEDICAL HISTORY Diagnosis Date Abnormal mammogram, unspecified 2009 LEFT BREAST LESION biopsy neg Arthritis of knee 03/01/2013 Arthritis, lumbar spine 06/04/2018 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) 10/16/2017 Bilateral carotid artery stenosis 12/09/2019 Seeing Vascular: US 12/2019 Rt 20-40%, Lt 60-80% Chronic left-sided low back pain with left-sided sciatica 06/18/2018 COVID-19 virus infection 07/21/202106/2021 DDD (degenerative disc disease), cervical 08/30/2023 [facility] Degeneration of lumbar or lumbosacral intervertebral disc [...] file at physician's office 01/08/2023 DPA: Burton Calvert (). 2nd- Maureen and Gabbi (both daughters) [...] NEEDLE OR INTRACATHETER UPR/LXTR ARTERY 05/02/2007 RIGHT [employer]QUET FLO[employer] LAY[employer]'S HELPER INTRO OF NEEDLE OR INTRACATHETER UPR/LXTR ARTERY 05/02/2007 LEFT PARQUET FLOOR LAYER'S HELPER INTRO OF NEEDLE OR INTRACATHETER UPR/LXTR ARTERY Right 12/15/2016 [facility] INTRODUCTION CATHETER AORTA 05/01/2007 INTRODUCTION CATHETER AORTA 05/02/2007 MAJOR JOINT INJECTION (SHOULDER,HIP,KNEE) Left 02/21/2023 shoulder- Dr. Wilson at [facility] PAST SURGICAL HISTORY OF 07/19/2002 aorto- to [...] RIGHT SLCTV CATHJ 1ST 2ND ORD [facility]RC/[facility] 09/07/2006 LEFT STEREOTACTIC CORE BIOPSY 09/20/2007 [...] on File Prior to Visit Medication Sig nitrofurantoin monohydrate and macrocrystal (MACROBID) 100 mg capsule Take 1 capsule by mouth two times a day with meals for 7 days. dilTIAZem CR (TIAZAC, TAZTIA XT) 180 mg 24 hr capsule Take 1 capsule by mouth once daily. lansoprazole (PREVACID) 30 mg capsule Take 1 capsule by mouth once daily. celecoxib (CELEBREX) 200 mg capsule Take 1 capsule by mouth two times a day. hydroCHLOROthiazide 25 mg tablet Take 1 tablet by mouth once daily. pramipexole (MIRAPEX) 1 mg tablet Take 1 tablet by mouth two times a day. DULoxetine (CYMBALTA) 60 mg capsule Take 1 capsule by mouth once daily. In the evening rosuvastatin (CRESTOR) 40 mg tablet Take 1 tablet by mouth every evening. potassium chloride ER (KLOR-CON) 20 mEq tablet Take 1 tablet by mouth twice daily. DULoxetine (CYMBALTA) 30 mg capsule Take 1 capsule by mouth once daily. In the AM Blood Pressure Test Kit-Large (QUICK RESPONSE BP [...] Take 1 tablet by mouth once daily. gabapentin (NEURONTIN) 100 mg capsule TWICE A DAY (Patient not taking: Reported on 02/29/2024) No current facility-administered medications on file prior [...] palpitations GI: No nausea, vomiting, or diarrhea MUSCULOSKELETAL: Negative for joint pain or swelling, back pain or muscle pain HEMATOLOGY/LYMPHOLOGY: Negative for prolonged bleeding, bruising easily or swollen nodes ENDOCRINE: Negative for cold or heat intolerance, polyuria, polydipsia and goiter NEURO: No history of headaches, syncope, paralysis, seizures or tremors EXAM: BP 142/84 Pulse 70 Resp 18 Ht 144 cm (4' 8.69 ) Wt 73 kg (161 lb) SpO2 95% BMI 35.22 kg/m General Appearance: Well appearing, alert, in no acute distress, well-hydrated, well nourished. and Obese. Skin: exam declined- patient sees derm. Head: Normocephalic, no masses, lesions, tenderness or abnormalities. Neck: Supple, no adenopathy; thyroid symmetric, normal size, no bruits. Lungs: Lungs clear to auscultation. No wheezing, rhonchi, rales.. Heart: RRR without murmur, gallop, or rubs. No ectopy. Abdomen: Normal abdominal exam, Abdomen soft, non-tender. Bowel sounds normal. No masses, organomegaly. Extremities: No deformities, edema, skin discoloration, clubbing or cyanosis. Good capillary refill. . Peripheral Pulses: decreased . Neurologic: Gait normal. Reflexes normal and symmetric. Sensation grossly intact.. Health Maintenance List DTaP,Tdap,Td Vaccine(1 - Tdap) due on 12/29/2004 BP Controlled (<130/80) due on 02/23/2023 Covid-19 Vaccine(2022- season) due on 08/28/2023 Advance Directive Discussion due on 11/13/2023 Annual PCP Team Chronic Disease Visit due on 02/28/2025 Diabetes Screening due on 02/22/2027 Bone Density Screening Completed Influenza Vaccine Completed RSV Vaccine Completed Shingrix Vaccine Completed Pneumococcal Vaccine: 65+ Completed Colorectal Cancer Screening Discontinued Data reviewed Latest Ref Rng 02/23/2024 WBC 3.70 - 11.00 k/uL 6.49 RBC 3.90 - 5.20 m/uL 4.97 Hemoglobin 11.5 - 15.5 g/dL 15.6 (H) Hematocrit 36.0 - 46.0 % 47.9 (H) MCV 80.0 - 100.0 fL 96.4 MCH 26.0 - 34.0 pg 31.4 MCHC 30.5 - 36.0 g/dL 32.6 RDW-CV 11.5 - 15.0 % 13.8 Platelet Count 150 - 400 k/uL 212 MPV 9.0 - 12.7 fL 12.6 Neut% % 65.9 Abs Neut (ANC) 1.45 - 7.50 k/uL 4.28 Lymph% % 23.4 Abs Lymph 1.00 - 4.00 k/uL 1.52 [place]% % 6.5 Abs [place] <0.87 k/uL 0.42 Eosin% % 3.4 Abs Eosin <0.46 k/uL 0.22 Baso% % 0.5 Abs Baso <0.11 k/uL 0.03 Immature Gran % % 0.3 IMMATURE GRANS (ABS) <0.10 k/uL <0.03 NRBC /100 WBC 0.0 Absolute nRBC <0.01 k/uL <0.01 DTYPE Auto Color Yellow Yellow Clarity Clear Clear Glucose, Urine Negative Negative Bilirubin, Urine Negative Negative Ketones, Urine Negative Negative Specific [place], Ur 1.005 - 1.030 1.015 Hemoglobin/Blood,Ur Negative Negative pH, Urine <8.5 6.0 Protein, Urine Negative 1+ ! Urobilinogen 0.2-1.0 EU/dL 1.0 EU/dL Nitrites Negative Positive ! Leukest Negative 2+ ! WBC, Urine 0-5 /HPF >20 /HPF ! RBC, Urine 0-2 /HPF 3-5 /HPF ! Bacteria uL Negative uL >9,821 (H) Epithelial Cells /HPF None Seen Hyaline Cast 0 /LPF 1-3 /LPF ! Protein, Total 6.3 - 8.0 g/dL 7.2 Albumin 3.9 - 4.9 g/dL 3.9 Calcium 8.5 - 10.2 mg/dL 10.2 Bilirubin, Total 0.2 - 1.3 mg/dL 0.6 Alkaline Phosphatase 34 - 123 U/L 93 AST 13 - 35 U/L 42 (H) ALT 7 - 38 U/L 23 Glucose 74 - 99 mg/dL 85 BUN 7 - 21 mg/dL 14 Creatinine 0.58 - 0.96 mg/dL 0.76 Sodium 136 - 144 mmol/L 145 (H) Potassium 3.7 - 5.1 mmol/L 4.3 Chloride 97 - 105 mmol/L 106 (H) CO2 22 - 30 mmol/L 22 Anion Gap 9 - 18 mmol/L 17 eGFR >=60 mL/min/1.73m 80 Total Cholesterol, Nonfasting <200 mg/dL 172 Triglycerides, Nonfasting <150 mg/dL 160 (H) HDL Cholesterol, Nonfasting >39 mg/dL 54 LDL Cholesterol, Nonfasting <100 mg/dL 86 Non HDL Cholesterol, Nonfasting <130 mg/dL 118 VLDL Cholesterol, Nonfasting <30 mg/dL 32 (H) Total Chol/HDL Ratio, Nonfasting <5.10 mg/dL 3.19 LDL/HDL Ratio, Nonfasting <2.54 mg/dL 1.59 Hemoglobin A1C 4.3 - 5.6 % 5.6 Estimated Average Glucose mg/dL 114 Vitamin B12 232 - 1,245 pg/mL >2,000 (H) Magnesium 1.7 - 2.3 mg/dL 2.0 ASSESSMENT/PLAN: 1. Medicare annual wellness visit, subsequent - ICD9: V70.0, ICD10: Z00.00 (primary diagnosis) - Counseled on healthy diet and regular exercise - Discussed need and benefit for weight loss. BMI 35.22 kg/(m^2) 2. Advance directive in chart - ICD9: V49.89, ICD10: Z78.9 Up to date 3. Essential hypertension with goal blood pressure less than 140/90 - ICD9: 401.9, ICD10: I10 - Uncontrolled - Continue current medications - patient to monitor at home and if seeing readings over 160/90 she is to call me. Otherwise will re-eval in 2 weeks. - Recommend home blood pressure monitoring, to bring results to next visit - Encouraged sodium restriction, DASH or Mediterranean diet - Recommend regular aerobic exercise - Discussed need for and benefit of weight loss. BMI 35.22 kg/(m^2) - Follow up in 2 weeks for hypertension visit Discussed possible red flags and when to seek medical attention. 4. Mixed hyperlipidemia - ICD9: 272.2, ICD10: E78.2 - Controlled - Continue current medications - Counseled on healthy diet and regular exercise 5. Elevated hemoglobin A1c - ICD9: 790.29, ICD10: R73.09 nomal 6. Gastroesophageal reflux disease without esophagitis - ICD9: 530.81, ICD10: K21.9 stable 7. Degeneration of lumbar or lumbosacral intervertebral disc - ICD9: 722.52, ICD10: M51.37 Contine with pain management 8. Memory deficit - ICD9: 780.93, ICD10: R41.3 Will need to continue with neuro. 9. 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 Cont with vascular 10. Polyneuropathy - ICD9: 356.9, ICD10: G62.9 Stable Cont with neuro 11. Restless legs - ICD9: 333.94, ICD10: G25.81 Stable, continue with neuro 12. PVD (peripheral vascular disease) (HCC) - ICD9: 443.9, ICD10: I73.9 Cont with vasc stable 13. Depression, unspecified depression type - ICD9: 311, ICD10: F32.A Stable. Brianna Patel PA-C I spent a total of 50 minutes on the date of the service which included preparing to see the patient, [id number] patient care, completing clinical documentation, obtaining and/or reviewing separately obtained history, performing a medically appropriate examination, counseling and educating the patient/family/caregiver, ordering medications, tests, or procedures, and communicating results to the patient/family/caregiver. documented in this encounter [facility] 02-27-2024 Miscellaneous Notes Patient notified and voiced understanding. Natalie Bonds MA Left message to call office. 02/27/2024 9:11 AM. Yuliet Carey LPN Left message for patient to contact office. Natalie Bonds MA Urine shows infection again. Will send in atb. Needs repeated in 2 weeks. documented in this encounter [facility] 01-31-2024 Miscellaneous Notes Pt called for copies of MRIs from 12-14-23. Ask to have these mailed to her. Done. Coretta Melgar LPN documented in this encounter [facility] 01-29-2024 Note [facility] 01-29-2024 History of Present illness Narrative SUBJECTIVE: Joyce Calvert is a 79 year old female. Who presents today with sciatica pain for a week. She has pain in the R hip down the back of the leg into the toes. She feels a buzzing feeling. She has no weakness and no new falls. She has no fevers. She has no rash. She has had sciatica in the past. However it was so long ago she does not remember the treatment. She has a normal steady gait and no problems walking. She is using bio [employer]. 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 2nd- Maureen and Gabbi (both daughters) Lumbosacral radiculopathy 04/01/2020 Mixed hyperlipidemia 09/30/2015 Neuropathy 12/17/2020 Lower extremities, NCS/EMG from 12/09/2020 Obesity 03/17/2014 Osteoarthritis of spine with radiculopathy, lumbosacral region 04/01/2020 Osteoarthritis, hand 11/02/2012 Osteopenia 09/14/2010 Personal history of colonic polyps Colon polyps Polycythemia, secondary 03/14/2012 PVD (peripheral vascular disease) ([facility]) 10/17/2016 Restless legs 03/01/2013 Right shoulder pain 06/29/2018 Toenail deformity 02/23/[address] Ragland routinely. Unspecified deformity of ankle and foot, acquired 09/10/2009 FAMILY HISTORY Problem Relation Age of Onset Coronary Artery Disease Mother Hypertension Mother Coronary Artery Disease Father Cancer Father lung ca. Hypertension Sister Social History Tobacco Use Smoking status: Former Packs/day: 1.00 Years: 43.00 Additional pack years: 0.00 Total pack years: 43.00 Types: Cigarettes Start date: 1963 Quit date: 08/14/2006 Years since quittin.4 Smokeless tobacco: Never Tobacco comments: Parents smoked in childhood home. Spouse ex-smoker, did smoke early in marriage. Vaping Use Vaping Use: Never used Substance Use Topics Alcohol use: Yes Comment: rarely Drug use: No ALLERGIES Allergen Reactions Demerol [Meperidine* Swelling tongue swelled Lisinopril GI Upset Ceclor [Cefaclor] Other: See Comments heart palpitations Doxycycline GI Upset Grass Pollen Itching Lipitor [Atorvastat* Intolerance, GI Upset Nauseated. Like I had the flu all the time Poison Adelaide Hives Current Outpatient Medications Medication Sig Dispense Refill dilTIAZem CR (TIAZAC, TAZTIA XT) 180 mg 24 hr capsule Take 1 capsule by mouth once daily. 90 capsule 1 lansoprazole (PREVACID) 30 mg capsule Take 1 capsule by mouth once daily. 90 capsule 1 celecoxib (CELEBREX) 200 mg capsule Take 1 capsule by mouth two times a day. 180 capsule 1 hydroCHLOROthiazide 25 mg tablet Take 1 tablet by mouth once daily. 90 tablet 1 gabapentin (NEURONTIN) 100 mg capsule TWICE A DAY pramipexole (MIRAPEX) 1 mg tablet Take 1 tablet by mouth two times a day. 180 tablet 1 DULoxetine (CYMBALTA) 60 mg capsule Take 1 capsule by mouth once daily. In the evening 90 capsule 1 rosuvastatin (CRESTOR) 40 mg tablet Take 1 tablet by mouth every evening. 90 tablet 1 potassium chloride ER (KLOR-CON) 20 mEq tablet Take 1 tablet by mouth twice daily. 180 tablet 3 DULoxetine (CYMBALTA) 30 mg capsule Take 1 capsule by mouth once daily. In the AM 90 capsule 1 Blood Pressure Test Kit-Large (QUICK RESPONSE BP MONITOR) 1 Each once daily. 1 Each 0 albuterol (PROVENTIL) 2.5 mg /3 mL (0.083 %) nebulizer solution Use 3 mL via nebulizer every 4 hours as needed for wheezing/shortness of breath. Use over 5-15minutes. 100 mL 2 albuterol HFA (PROAIR HFA) 90 mcg/actuation inhaler Inhale 2 Puffs as instructed every 4 hours as needed for wheezing/shortness of breath. 1 Each 1 aspirin, enteric coated (ASPIRIN, ENTERIC COATED) 81 mg EC tablet Take 1 tablet by mouth once daily. 0 No current facility-administered medications for this visit. OBJECTIVE: BP 144/82 Pulse 60 Temp 36.4 C (97.5 F) Resp 16 Wt 74.2 kg (163 lb 9.3 oz) SpO2 95% BMI 35.40 kg/m ROS all other systems reviewed and are negative Physical Exam Constitutional: Well developed, well nourished, NAD, A&O X3. ENT: Head is atraumatic, airway patent, mucosal membranes moist. Cardiac: Heart tone normal rate and rhythm Respiratory: Breath sounds clear : no CVA tenderness MS: no swelling, tenderness or deformity in upper or lower extremities, no midline tenderness in cervical, thoracic or lumbar spine positive sij tenderness no lag on forward flexion patient able to toe walk heel walk has a normal steady gait decree sensation on the right compared to the left Neuro: strength and coordination intact. CN II-XII grossly intact, Skin: warm and dry with out rash, lesion or ecchymosis on exposed skin Psych: alert appropriate, speech clear MDM It was a pleasure to take care of Joyce Calvert today. For her sciatica pain she will be treated with a steroid Dosepak. If she develops any weakness in her lower extremities or bowel or bladder loss of control she will go to the emergency department. She will follow-up with her family physician. Patient has verbalized understanding of plan of care and is agreeable Patient will follow up with family physician. They may return to the Urgent Care or go to the ER for worsening symptoms or concerns. Patient verbalized understanding of plan of care and is in agreement. ASSESSMENT/PLAN: 1. Sciatica, right side - ICD9: 724.3, ICD10: M54.31 - METHYLPREDNISOLONE 4 MG TABLETS IN A DOSE PACK Thelma Santana APRN.TSA SCREENER documented in this encounter [facility] 01-15-2024 Miscellaneous Notes The following approved medication requests [...] identified by name and date of : Yes, Provider Dr Acosta Date 01/15/24 Time 12:56 pm Patient phones for refill(s): Requested Prescriptions Pending Prescriptions Disp Refills dilTIAZem CR (TIAZAC, TAZTIA XT) 180 mg 24 hr capsule 90 capsule 1 Sig: Take 1 capsule by mouth once daily. lansoprazole (PREVACID) 30 mg capsule 90 capsule 1 Sig: Take 1 capsule by mouth once daily. Date of last office visit in primary care: 11/21/2023 Date of next office visit in primary care: 02/29/2024 Please advise. Thank you. Rhina Salazar LPN. documented in this encounter [facility] 12-25-2023 Note [facility] 12-25-2023 History of Present illness Narrative Summary: RESEARCH Follow-up Research Ultrasound Study [place]le: Risk Assessment of Stroke Using Non-Invasive Ultrasonic Backscatter from Carotid Plaque (RUNUP) IRB#: [id number] PI: Lashae Francis, PhD Phone#: [phone] COORDINATOR/Research Nurse/Acquisition Specialist: Be Vidal, PhD or Padmini Lim or [phone] Pager: [phone] Subject remains willing to participate in the study: NO Inclusion and Exclusion Criteria for CEA Group: [...] provide informed consent - Unable to understand Swedish language. Research Ultrasound performed following standard of care ultrasound. Sobia Katz documented in this encounter [facility] 12-25-2023 History of Present illness Narrative Images from the original note were not included. Here for f/u of recurent LICA stenosis and mild pvd. She has undergone a left carotid endarterectomy with dacron patch angioplasty in 2005. Her ABIs were 71% of normal on the right and 71% on the left. Her left carotid is still 60-79% with some disease in the bulb around 50-99%. The right carotid is 40-59% Heart , Vascular and Thoracic [place] DEPARTMENT OF VASCULAR SURGERY OUTPATIENT VISIT DATE December 25, 2023 OUTPATIENT VISIT TYPE ESTABLISHED SERVICE DATE: 12/25/2023 SERVICE TIME: 11:23 AM PRIMARY CARE PHYSICIAN: Marcelo Acosta MD HISTORY OF PRESENT ILLNESS: Ms. Calvert is a 78 year old female who presents today for a vascular surgery follow-up visit. 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 Wilson at [facility] PAST SURGICAL HISTORY OF 07/19/2002 aorto- to [...] Yes Comment: rarely Drug use: No MEDICATIONS: gabapentin (NEURONTIN) 100 mg capsule TWICE A DAY pramipexole (MIRAPEX) 1 mg tablet Take 1 tablet by mouth two times a day. DULoxetine (CYMBALTA) 60 mg capsule Take 1 capsule by mouth once daily. In the evening dilTIAZem CR (TIAZAC, TAZTIA XT) 180 mg 24 hr capsule Take 1 capsule by mouth once daily. lansoprazole (PREVACID) 30 mg capsule Take 1 capsule by mouth once daily. rosuvastatin (CRESTOR) 40 mg tablet Take 1 tablet by mouth every evening. hydroCHLOROthiazide 25 mg tablet Take 1 tablet by mouth once daily. potassium chloride ER (KLOR-CON) 20 mEq tablet Take 1 tablet by mouth twice daily. DULoxetine (CYMBALTA) 30 mg capsule Take 1 capsule by mouth once daily. In the AM celecoxib (CELEBREX) 200 mg capsule Take 1 capsule by mouth twice daily. albuterol (PROVENTIL) 2.5 mg /3 mL [...] Take 1 tablet by mouth once daily. Blood Pressure Test Kit-Large (QUICK RESPONSE BP MONITOR) 1 Each once daily. ALLERGIES: ALLERGIES Allergen Reactions Demerol [Meperidine* Swelling tongue swelled Lisinopril GI Upset Ceclor [Cefaclor] Other: See Comments heart palpitations Doxycycline GI Upset Grass Pollen Itching Lipitor [Atorvastat* Intolerance, GI Upset Nauseated. Like I had the flu all the time Poison Adelaide Hives Diagnostic tests reviewed for today's visit: Most recent imaging Irregular cardiac rhythm noted. Technically difficult exam due to patient's body habitus and heavy respirations. Compared to prior study of 12/26/2022, no significant change. RIGHT SIDE Common carotid artery: Plaque visualized without evidence of hemodynamically significant stenosis. Internal carotid artery: 40-59% stenosis. Tortuous vessel . Vertebral artery: Patent and antegrade flow noted. Innominate artery: Plaque visualized without evidence of hemodynamically significant stenosis. Subclavian artery: Plaque visualized without evidence of hemodynamically significant stenosis. LEFT SIDE Common carotid artery: 50-99% stenosis at distal patch. Endarterectomy patch at distal measuring 1.06 cm. Internal carotid artery: 60-79% stenosis. Elevated velocities and turbulent flow likely overestimated due to more proximal stenosis. External carotid artery: Turbulent flow noted, likely due to more proximal stenosis. Vertebral artery: Patent and antegrade flow noted. Subclavian artery: Turbulent flow noted, cannot rule out more proximal subclavian artery stenosis. May wish other means of evaluation. Resting right ankle brachial index: 0.71 Abnormal ankle brachial index at rest diagnostic of peripheral artery disease. Right ankle: Mild disease at rest. LEFT SIDE Resting left ankle brachial index: 0.70 IMPRESSION and PLAN: She has had no strokes mini strokes or amaurosis fugax she is otherwise stable. She has no ulcers. And have her back in 1 years time to see our nurse practitioners with a carotid duplex and ABIs. STAFF PHYSICIAN: Ketan Saha MD DATE OF SERVICE: December 25, 2023 TIME OF SERVICE: 11:23 AM documented in this encounter [facility] 12-25-2023 Note [facility] 12-14-2023 History of Present illness Narrative Radiology Service Progress Note PATIENT NAME: Joyce Calvert DATE OF SERVICE: December 14, 2023 TIME: 8:23 AM PATIENT IDENTITY VERIFICATION COMPLETED USING TWO (2) IDENTIFIERS: Name and Date of confirmed by patient verbally. FALL SCREENING: Has the patient had 2 falls in the last year or 1 fall with injury or currently using an Ambulatory Assistive Device (Walker, Cane, Wheelchair, Crutches, etc.)? No PATIENT GENDER DATA: Female. status: : No status: NO. PATIENT RELEVANT IMPLANT DATA REVIEWED: Yes PATIENT PRESENTS WITH AN IMPLANTABLE OR ATTACHED ROPE RIDER: No RADIOLOGY DEPARTMENT: MR; Exam(s) Completed: Head: Routine Brain PERIPHERAL IV DATA: Not applicable SIGNED BY: RT Tom(R) December 14, 2023 8:23 AM documented in this encounter [facility] 12-14-2023 Note [facility] 11-22-2023 Note [facility] 11-22-2023 Note [facility] 11-22-2023 Note [facility] 11-21-2023 Note [facility] 11-10-2023 Note [facility] 11-10-2023 History of Present illness Narrative Scan on 11/10/2023 1:40 AM by ProviderHenrique PA-C: Consultation - Emergency Medicine Scan on 11/09/2023 5:19 PM by ProviderHenrique PA-C: X-ray documented in this encounter [facility] 11-07-2023 Note [facility] 10-14-2023 Miscellaneous Notes The following approved [...] need to notify patient. Natalie Bonds MA Iván 08/2023 Nov 02/29/2024 Last refill: 07/2023 documented in this encounter [facility] 10-03-2023 History of Present illness Narrative Radiology Service Progress Note PATIENT NAME: Joyce Calvert DATE OF SERVICE: October 03, 2023 TIME: [...] 2023 3:36 PM documented in this encounter [facility] 10-03-2023 Note [facility] 10-03-2023 Note [facility] 10-03-2023 History of Present illness Narrative Refund Clerk offered: Patient declines. 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 2nd- Maureen and Gabbi (both daughters) [...] NEEDLE OR INTRACATHETER UPR/LXTR ARTERY 05/02/2007 RIGHT PARQUET FLOOR LAYER'S HELPER INTRO OF NEEDLE OR INTRACATHETER UPR/LXTR ARTERY 05/02/2007 LEFT PARQUET FLOOR LAYER'S HELPER INTRO OF NEEDLE OR INTRACATHETER UPR/LXTR ARTERY Right 12/15/2016 [facility] INTRODUCTION CATHETER AORTA 05/01/2007 INTRODUCTION CATHETER AORTA 05/02/2007 MAJOR JOINT INJECTION (SHOULDER,HIP,KNEE) Left 02/21/2023 shoulder- Dr. Wilson at [facility] PAST SURGICAL HISTORY OF 07/19/2002 aorto- to [...] PRIMARY/SECONDARY <AGE 12 Tonsillectomy TRANSCATH STENT INIT VESSEL,GUILLERMOUT 05/01/2007 TUBAL LIGATION, FAMILY HISTORY Problem Relation [...] external genitalia normal, normal Bartholin's glands, urethra, Foristell's glands, no vulvar lesions, no cervical lesions, [...] one year or sooner as needed Taylor Mahmood APRN.TSA SCREENER documented in this encounter [facility] 10-02-2023 Miscellaneous Notes See Purkinje message. documented in this encounter [facility] 10-02-2023 History of Present illness Narrative Radiology Service Progress Note PATIENT NAME: Joyce Calvert DATE OF SERVICE: October 02, 2023 TIME: [...] 2023 8:30 AM documented in this encounter [facility] 10-02-2023 Note [facility] 08-30-2023 Instructions Marcelo Acosta MD - [...] your next visit. documented in this encounter [facility] 08-30-2023 Note [facility] 08-30-2023 History of Present illness Narrative Chief Complaint Patient presents with: F/U 6 months HPI Joyce Calvert is a 78 year old female who presents here today for 6 month follow up. Patient with hx of HTN, PVD, carotid stenosis, OA, RLS, neuropathy, GERD, elevated a1c, OA, obesity, and those as below. Patient overall doing well. Denies concerns. Requip helps but not as well as it had been. The cymbalta continues to help manage her depression. Has been seeing [facility] for arm pain which they feel is coming from her neck. Still seeing vascular once a year. Past medical history, appointments, medications, allergies reviewed. 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 2nd- Maureen and Gabbi (both daughters) Lumbosacral radiculopathy 04/01/2020 Mixed hyperlipidemia 09/30/2015 Neuropathy 12/17/2020 Lower extremities, NCS/EMG from 12/09/2020 Obesity 03/17/2014 Osteoarthritis of spine with radiculopathy, lumbosacral region 04/01/2020 Osteoarthritis, hand 11/02/2012 Osteopenia 09/14/2010 Personal history of colonic polyps Colon polyps Polycythemia, secondary 03/14/2012 PVD (peripheral vascular disease) ([facility]) 10/17/2016 Restless legs 03/01/2013 Right shoulder pain [...] NEEDLE OR INTRACATHETER UPR/LXTR ARTERY 05/02/2007 RIGHT PARQUET FLOOR LAYER'S HELPER INTRO OF NEEDLE OR INTRACATHETER UPR/LXTR ARTERY 05/02/2007 LEFT PARQUET FLOOR LAYER'S HELPER INTRO OF NEEDLE OR INTRACATHETER UPR/LXTR ARTERY Right 12/15/2016 [facility] INTRODUCTION CATHETER AORTA 05/01/2007 INTRODUCTION CATHETER AORTA 05/02/2007 LIG/TRNSXJ FLP TUBE ABDL/VAG APPR UNI/BI Tubal ligation MAJOR JOINT INJECTION (SHOULDER,HIP,KNEE) Left 02/21/2023 shoulder- Dr. Wilson at [facility] PAST SURGICAL HISTORY OF 07/19/2002 aorto- to [...] Vaccine(1 - Tdap) due on 12/29/2004 Covid-19 Vaccine( season) due on 08/28/2023 Annual PCP Team [...] Abs Lymph 1.00 - 4.00 k/uL 2.64 [place]% % 5.6 Abs [place] <0.87 k/uL 0.62 Eosin% % 2.0 Abs Eosin <0.46 k/uL 0.22 Baso% % 0.4 Abs Baso <0.11 k/uL 0.04 Immature Gran % % 0.2 IMMATURE GRANS (ABS) <0.10 k/uL <0.03 NRBC /100 WBC 0.0 Absolute nRBC <0.01 k/uL <0.01 DTYPE Auto Color Yellow Yellow Clarity Clear Cloudy (A) Glucose, Urine Trace, Negative Negative Bilirubin, Urine Negative Negative Ketones, Urine Trace, Negative Negative Specific [place], Ur 1.005 - 1.030 1.017 Hemoglobin/Blood,Ur Negative, [...] - management per Vascular 7. Atherosclerosis of muscogee artery of both lower extremities with intermittent [...] - ICD9: 722.4, ICD10: M50.30 - seeing [facility] Ortho Requested Prescriptions Signed Prescriptions Disp Refills [...] Marcelo Acosta MD documented in this encounter [facility] 08-17-2023 Telephone encounter Note 1st call attempt, left vm [facility] 08-17-2023 Miscellaneous Notes 1st call attempt, left vm Please call patient and assist with scheduling. Maureen Marrero RN Order filed. Taylor Mahmood APRN.THELMA Patient verified by name and . She would like to have a mammogram screening order placed so she can schedule her annual appt and mammogram appt for the same day. Please review and advise. María Suresh documented in this encounter [facility] 08-16-2023 Telephone encounter Note Please call patient and assist with scheduling. Maureen Marrero RN [facility] 08-16-2023 Telephone encounter Note Order filed. Taylor Mahmood APRN.THELMA [facility] Work Phone: 08-16-2023 Telephone encounter Note Patient verified by name and . She would like to have a mammogram screening order placed so she can schedule her annual appt and mammogram appt for the same day. Please review and advise. María Suresh [facility] 07-31-2023 Miscellaneous Notes Patient phones requesting refills as follows: Requested Prescriptions Pending Prescriptions Disp Refills pramipexole (MIRAPEX) 0.5 mg tablet 180 tablet 1 Sig: Take 1 tablet by mouth twice daily. IVÁN 02/27/23 RR NOV 08/30/23 KELLY Please review and advise. Clay Knox AEROSPACE ENGINEER documented in this encounter [facility] 07-24-2023 Miscellaneous Notes Being addressed in another encounter. Rhina Salazar LPN documented in this encounter [facility] 07-24-2023 Miscellaneous Notes Last refill Cymbalta 30 mg 12/20/22 Qty: 90 with 1 refill Last refill Crestor 04/12/23 Qty: 90 with 1 refill Last refill diltiazem 02/27/23 Qty: 90 with 1 refill IVÁN 02/27/23 NOV 08/30/23 Rhina Salazar LPN documented in this encounter [facility] 06-21-2023 Miscellaneous Notes Nocturnal Oximetry, RA, 06/16/2023. Recording interval: 8:50:20 High pulse: 94 Low pulse: 52 Highest spO2: 100% Lowest spO2: 84% Time with spO2 < 88%: 0.7 minutes Recommendation: Based on above results, patient is not requiring supplemental oxygen at night. I have received and reviewed the outside records noted above. Maureen Weathers PA-C [facility] [place] documented in this encounter [facility] 05-04-2023 Miscellaneous Notes Rx refilled 05/01/23 Qty: 90 with 1 refill. Sent to [facility] should have refills left. Rhina Salazar AEROSPACE ENGINEER documented in this encounter [facility] 04-28-2023 Miscellaneous Notes Last office visit: 02/27/23 F/u scheduled: 08/30/23 Magy Morton Ma documented in this encounter [facility] 04-12-2023 Miscellaneous Notes Last refill 12/20/22 Qty: 90 with 1 refill IVÁN 02/27/23 NOV 08/30/23 Rhina Salazar LPN documented in this encounter [facility] 03-22-2023 Miscellaneous Notes Patient has been identified [...] Tiana Shaikh LPN documented in this encounter [facility] 03-14-2023 Miscellaneous Notes Last refills 12/20/22 Qty: x 6 months IVÁN 02/27/23 08/30/23 Rhina Salazar LPN documented in this encounter [facility] 02-28-2023 Miscellaneous Notes Pt advised rx was sent to pharm. Rhina Salazar LPN The following approved medication requests have [...] were all ok. 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 2nd- Berta (both daughters) Lumbosacral radiculopathy 04/01/2020 Mixed hyperlipidemia 09/30/2015 Neuropathy 12/17/2020 Lower extremities, NCS/EMG from 12/09/2020 Obesity 03/17/2014 Osteoarthritis of spine with radiculopathy, lumbosacral region 04/01/2020 Osteoarthritis, hand 11/02/2012 Osteopenia 09/14/2010 Personal history of colonic polyps Colon polyps Polycythemia, secondary 03/14/2012 PVD (peripheral vascular disease) ([facility]) 10/17/2016 Restless legs 03/01/2013 Right shoulder pain [...] NEEDLE OR INTRACATHETER UPR/LXTR ARTERY 05/02/2007 RIGHT PARQUET FLOOR LAYER'S HELPER INTRO OF NEEDLE OR INTRACATHETER UPR/LXTR ARTERY 05/02/2007 LEFT PARQUET FLOOR LAYER'S HELPER INTRO OF NEEDLE OR INTRACATHETER UPR/LXTR ARTERY Right 12/15/2016 sfa INTRODUCTION CATHETER AORTA 05/01/2007 INTRODUCTION CATHETER AORTA 05/02/2007 LIG/TRNSXJ FLP TUBE ABDL/VAG APPR UNI/BI Tubal ligation MAJOR JOINT INJECTION (SHOULDER,HIP,KNEE) Left 02/21/2023 shoulder- Dr. 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 2nd- Maureen and Gabbi (both daughters) [...] NEEDLE OR INTRACATHETER UPR/LXTR ARTERY 05/02/2007 RIGHT PARQUET FLOOR LAYER'S HELPER INTRO OF NEEDLE OR INTRACATHETER UPR/LXTR ARTERY 05/02/2007 LEFT PARQUET FLOOR LAYER'S HELPER INTRO OF NEEDLE OR INTRACATHETER UPR/LXTR ARTERY Right 12/15/2016 sfa INTRODUCTION CATHETER AORTA 05/01/2007 INTRODUCTION CATHETER AORTA 05/02/2007 LIG/TRNSXJ FLP TUBE ABDL/VAG APPR UNI/BI Tubal ligation MAJOR JOINT INJECTION (SHOULDER,HIP,KNEE) Left 02/21/2023 shoulder- Dr. Wilson at [facility] PAST SURGICAL HISTORY OF 07/19/2002 aorto- to [...] diet of 1000 mg/day for under 50, [id number] mg/day for 50+ 2. Advance directive in [...] I73.9 Cont with vasc 7. 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 Patient did not need to be seen by physician. 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) [...] Polycythemia, secondary 03/14/2012 PVD (peripheral vascular disease) ([facility]) 10/17/2016 Restless legs 03/01/2013 Right shoulder pain [...] NEEDLE OR INTRACATHETER UPR/LXTR ARTERY 05/02/2007 RIGHT PARQUET FLOOR LAYER'S HELPER INTRO OF NEEDLE OR INTRACATHETER UPR/LXTR ARTERY 05/02/2007 LEFT PARQUET FLOOR LAYER'S HELPER INTRO OF NEEDLE OR INTRACATHETER UPR/LXTR ARTERY [...] 09/02/2014 SLCTV CATHJ 1ST 2ND ORD [facility]RC/[facility] 09/07/2006 RIGHT SLCTV CATHJ 1ST 2ND ORD [facility]RC/[facility]LC [facility] 09/07/2006 LEFT STEREOTACTIC CORE BIOPSY 09/20/2007 [...] - STREP A MOLECULAR (POC) Boy Trujillo APRN.CNP documented in this encounter [facility] 12-28-2022 Miscellaneous Notes Images from the original note were not included. PA is covered by drug plan Maria Esther Medina Ma Prior Authorization has been completed online at [employer] for Celebrex, will await response. SERRANO- [id number] Please keep encounter open until final decision has been received and documented from insurance company. Maria Esther Medina MA documented in this encounter [facility] 12-26-2022 History of Present illness Narrative Images from the original note [...] is 40-59%. Heart , Vascular and Thoracic [place] DEPARTMENT OF VASCULAR SURGERY OUTPATIENT VISIT DATE December 26, 2022 OUTPATIENT VISIT TYPE ESTABLISHED SERVICE DATE: 12/26/2022 SERVICE TIME: 1:11 PM PRIMARY CARE PHYSICIAN: Marcelo Acosta MD HISTORY OF PRESENT ILLNESS: Ms. Calvert is a 77 year old female who presents today for a vascular surgery follow-up visit. 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 Sumaya Moran RIKI Called [employer], the machine was returned with no data. They have attempted to contact the patient to retest and have not been able to reach her. Will attempt again today. Sumaya Moran AEROSPACE ENGINEER Result request sent to [employer]. Sumaya Moran RIKI Pt calling for results of recent sleep study completed beginning of Nov. Please review and advise. Thank you. Jodee Wilhelm, RN documented in this encounter [facility] 12-20-2022 Miscellaneous Notes The following approved medication [...] daily. In the AM Authorizing Provider: MARCELO ACOSTA MD Last office visit: 10/31/22 F/u scheduled: 01/04/23 Magy Morton Ma documented in this encounter [facility] 11-22-2022 Miscellaneous Notes Order for nocturnal oximetry was faxed to [facility] on date of appointment (11/10). Likely DME has not had a unit available to send to patient/patient is on waiting list for next available unit. She could certainly reach out to [facility] to confirm\ wait time. Detailed message left for patient re: same. Sumaya Moran LPN Patient calls office, states she has not received equipment from [facility] to do nocturnal oximetry study. Asking what to do? Was order sent? documented in this encounter [facility] 11-10-2022 History of Present illness Narrative Patient: Joyce Calvert PCP: Marcelo Acosta MD CC: Post Covid syndrome/lung nodules HPI: Joyce Calvert 77 year old female former smoker, 43 pack years (quitting 2006) with PMH significant for bilateral carotid artery stenosis, HTN, GERD, OA, hyperlipidemia, PAD, PVD, and Covid 19 pneumonia requiring hospitalization at [facility] in June 2021. 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 IMMUNIZATIONS Prevnar - 03/06/2015 Pneumovax 23 - 03/31/2022, 03/14/2013, 03/16/2010 Influenza - 08/25/2022 [...] 12:25:19 EDT by Yimi Casey Nocturnal Oximetry, RA, 01/03/2022 Recording interval: 11:17:20 High pulse: 103 [...] a left renal calculus, only partially visualized. Cafeteria Counter Attendant (topogram) images: No additional findings. ASSESSMENT/PLAN: 1. [...] Maureen Weathers PA-C documented in this encounter [facility] 11-03-2022 History of Present illness Narrative Radiology Service Progress Note PATIENT NAME: Joyce Calvert DATE OF SERVICE: November 03, 2022 TIME: [...] 2022 9:40 AM documented in this encounter [facility] 10-31-2022 Instructions Radha Jett APRN.TSA SCREENER - 10/31/2022 10:45 AM EST Drink plenty [...] tacos, garlic, onions documented in this encounter [facility] 10-31-2022 History of Present illness Narrative Chief Complaint Patient presents with: Shortness of Breath Fatigue HPI Joyce Calvert is a 77 year old female who [...] 03/01/2013 Arthritis, lumbar spine 06/04/2018 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 Steve Dealrosa ARTHRP KNE CONDYLE&PLATU MEDIAL&LAT COMPARTMENTS 03/2013 Knee [...] NEEDLE OR INTRACATHETER UPR/LXTR ARTERY 05/02/2007 RIGHT PARQUET FLOOR LAYER'S HELPER INTRO OF NEEDLE OR INTRACATHETER UPR/LXTR ARTERY 05/02/2007 LEFT PARQUET FLOOR LAYER'S HELPER INTRO OF NEEDLE OR INTRACATHETER UPR/LXTR ARTERY [...] tolerated -Drink plenty of fluids Radha Jett APRN.TSA SCREENER documented in this encounter [facility] 10-27-2022 Miscellaneous Notes Reason for call: Ms Calvert called and she would like to schedule an appointment with DR Saha f/u Home and cell number [phone] Diagnosis 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 Kind Regards Tamica documented in this encounter [facility] 10-26-2022 Miscellaneous Notes Documented. Natalie Bonds MA done Please place order for COVID. Natalie Bonds MA documented in this encounter [facility] 10-24-2022 Miscellaneous Notes The following approved medication [...] Last refill: 05/2022 documented in this encounter [facility] 10-24-2022 Miscellaneous Notes Patient should have 1 additional refill. Natalie Bonds MA documented in this encounter [facility] 10-10-2022 Nurse Note Ambulatory Ear Lavage Pre-treatment: Ear Canal/Tympanic membrane assessed by VINOD Galvan Treatment: Right ear Equipment and Irrigation solution and Volume used: Single use syringe with single use irrigation tip Return flow appearance: Debris Patient tolerated procedure: yes Post-treatment: Post Irrigation Post-treatment: Ear Canal/Tympanic membrane assessed by VINOD Galvan documented in this encounter [facility] 10-10-2022 History of Present illness Narrative Patient presents with: Ear Problem: [...] Orlando Galvan MD documented in this encounter [facility] 10-03-2022 History of Present illness Narrative Chief Complaint Patient presents with: Recheck HPI Joyce Calvert is a 77 year old female who [...] 03/01/2013 Arthritis, lumbar spine 06/04/2018 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 Radha Marcelo APRN.CNP [address] [place] [address] documented in this encounter [facility] 09-02-2022 Miscellaneous Notes September 02, 2022 PID: [id number] Joyce Calvert [address] [place] [address] Dear Ms. Calvert, We are pleased to inform you that [...] report will be kept on file at [facility] as part of your permanent medical record and are available for your continuing care. Thank you for allowing us to help in meeting your health care needs. Sincerely, Dr. Stokes Interpreting Radiologist [facility] (Normal over 40) documented in this encounter [facility] 08-25-2022 Miscellaneous Notes Patient has been identified by name and date of : Yes Requested Prescriptions Pending Prescriptions Disp Refills celecoxib (CELEBREX) 200 mg capsule 180 capsule 1 Sig: Take 1 capsule by mouth twice daily. RX INSTRUCTIONS: Patient aware RX will be sent to pharmacy. No need to notify patient. Natalie Bonds MA Iván: 08/25/2022 Last refill; 05/2022 documented in this encounter [facility] 07-25-2022 Miscellaneous Notes The following approved medication [...] her last refill. documented in this encounter [facility] 07-06-2022 Miscellaneous Notes Opened in error. Natalie Bonds MA documented in this encounter [facility] 07-01-2022 Miscellaneous Notes Call placed to patient [...] refill(s): Requested Prescriptions Pending Prescriptions Disp Refills keyaichv-kbnkcewqy-yxhlkfahsprnsn (CORTISPORIN) 3.5-10,000-1 mg/mL-unit/mL-% otic suspension 10 mL [...] Charla Torre RN documented in this encounter [facility] 06-22-2022 Miscellaneous Notes The following approved medication requests have been transmitted electronically. Requested Prescriptions Signed Prescriptions Disp Refills dilTIAZem CR (TIAZAC, TAZTIA XT) 180 mg 24 hr capsule 90 capsule 1 Sig: Take 1 capsule by mouth once daily. Authorizing Provider: MARCELO ACOSTA MD Last office visit: 04/18/22 F/u scheduled: 08/25/22 Magy Morton Ma documented in this encounter [facility] 06-02-2022 Miscellaneous Notes rx request is being addressed in another refill request. Rhina Salazar LPN documented in this encounter [facility] 06-02-2022 Miscellaneous Notes IVÁN 04/18/22 NOV 08/25/22 Rhina Salazar LPN documented in this encounter [facility] 05-29-2022 Miscellaneous Notes Left detailed message on a secured voicemail. Lili Siu ----- Message from Ryanne Tobar APRN.TSA SCREENER sent at 05/29/2022 8:19 AM EDT ----- Please advise patient the fungal screen was negative after 5 days. documented in this encounter [facility] 05-23-2022 History of Present illness Narrative This note was created using [employer]. Subjective Joyce Calvert is a 77 year old female. HPI Patient presents with right ear pain over the past 3 or 4 days. She states she gets swimmer's ear frequently and had used Cortisporin drops the past couple days but does not seem to be improving. She also put some wcge-xuc-ekkjadq drops in there. 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) [...] 11/02/2012 Osteopenia 09/14/2010 PAD (peripheral artery disease) ([facility]) Personal history of colonic polyps Colon polyps Polycythemia, secondary 03/14/2012 PVD (peripheral vascular disease) ([facility]) 10/17/2016 Restless legs 03/01/2013 Right shoulder pain [...] NEEDLE OR INTRACATHETER UPR/LXTR ARTERY 05/02/2007 RIGHT PARQUET FLOOR LAYER'S HELPER INTRO OF NEEDLE OR INTRACATHETER UPR/LXTR ARTERY 05/02/2007 LEFT PARQUET FLOOR LAYER'S HELPER INTRO OF NEEDLE OR INTRACATHETER UPR/LXTR ARTERY [...] PRIMARY/SECONDARY <AGE 12 Tonsillectomy TRANSCATH STENT INIT VESSEL,CHRISTIANO 05/01/2007 TUBAL LIGATION, FAMILY HISTORY Problem Relation [...] ear unremarkable. Nose: Nose normal. Mouth/Throat: Lips: [place]. Mouth: Mucous membranes are dry. Cardiovascular: Rate [...] Jodie Shine PA-C documented in this encounter [facility] 05-13-2022 Miscellaneous Notes The following approved medication [...] Last refill: 02/2022 documented in this encounter [facility] 04-27-2022 Miscellaneous Notes Last refill 01/05/22 Qty: 90 with 1 refill Pt had appointment with Dr Perez 04/18/22 NOV 08/25/22 Rhina Salazar LPN documented in this encounter [facility] 04-18-2022 History of Present illness Narrative Chief Complaint Patient presents with: Pain: right arm-completed prednisone but didn't resolve HPI Joyce Calvert is a 77 year old female who [...] 03/01/2013 Arthritis, lumbar spine 06/04/2018 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) [...] 11/02/2012 Osteopenia 09/14/2010 PAD (peripheral artery disease) ([facility]) Personal history of colonic polyps Colon polyps Polycythemia, secondary 03/14/2012 PVD (peripheral vascular disease) ([facility]) 10/17/2016 Restless legs 03/01/2013 Right shoulder pain [...] NEEDLE OR INTRACATHETER UPR/LXTR ARTERY 05/02/2007 RIGHT PARQUET FLOOR LAYER'S HELPER INTRO OF NEEDLE OR INTRACATHETER UPR/LXTR ARTERY 05/02/2007 LEFT PARQUET FLOOR LAYER'S HELPER INTRO OF NEEDLE OR INTRACATHETER UPR/LXTR ARTERY [...] PRIMARY/SECONDARY <AGE 12 Tonsillectomy TRANSCATH STENT INIT VESSEL,GUILLERMOUT 05/01/2007 TUBAL LIGATION, Family History FAMILY HISTORY [...] Mitesh Perez MD documented in this encounter [facility] 04-09-2022 History of Present illness Narrative Subjective HPI HPI Joyce Calvert is a 77 year old female who [...] 03/01/2013 Arthritis, lumbar spine 06/04/2018 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) [...] 11/02/2012 Osteopenia 09/14/2010 PAD (peripheral artery disease) (HCC) Personal history of colonic polyps Colon polyps Polycythemia, secondary 03/14/2012 PVD (peripheral vascular disease) ([facility]) 10/17/2016 Restless legs 03/01/2013 Right shoulder pain [...] NEEDLE OR INTRACATHETER UPR/LXTR ARTERY 05/02/2007 RIGHT PARQUET FLOOR LAYER'S HELPER INTRO OF NEEDLE OR INTRACATHETER UPR/LXTR ARTERY 05/02/2007 LEFT PARQUET FLOOR LAYER'S HELPER INTRO OF NEEDLE OR INTRACATHETER UPR/LXTR ARTERY [...] Boy Trujillo APRN.THELMA documented in this encounter [facility] 04-04-2022 Miscellaneous Notes Patient has been identified [...] capsule 1 refills documented in this encounter [facility] 03-31-2022 History of Present illness Narrative This note was created using [email or web address]. Subjective Joyce Calvert is a 77 year old female. 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 Mouth/Throat: Lips: [place]. Mouth: Mucous membranes are moist. Pharynx: Oropharynx [...] Jodie Shine PA-C documented in this encounter [facility] 03-25-2022 Miscellaneous Notes Patient was notified Maria Esther Medina Ma Let patient know that her repeat labs are all normal. Brianna Patel PA-C documented in this encounter [facility] 03-15-2022 History of Present illness Narrative Scan on 03/14/2022 5:39 PM by External Provider: Consultation - Neurology documented in this encounter [facility] 03-10-2022 Miscellaneous Notes Form will be faxed back informing them that patient does not have the diagnosis of diabetes or neuropathy. Received form for completion from [facility] requesting form completion for Medicare compliance for pt's diabetic shoes. Form on your desk. Rhina Salazar LPN documented in this encounter [facility] 02-26-2022 Miscellaneous Notes The following approved medication [...] had appt 02/23/22 Pt has appt 08/25/22 Rhina Salazar LPN documented in this encounter [facility] 02-26-2022 Miscellaneous Notes Patient notified and verbalizes understanding. Left message for pt to contact office. Rhina Salazar LPN Urine culture shows contamination during collection process. Can we get repeat UA and culture when she is able. I would like to make sure no more blood and/or confirm no infection. Make sure to do best with getting a clean catch. Thanks. Brianna Patel PA-C documented in this encounter [facility] 02-23-2022 Instructions Brianna Patel PA-C - 02/23/2022 12:44 PM EDT Repeat bloodwork in approx 1 month. Follow up routine visit in 6 months. documented in this encounter [facility] 02-23-2022 History of Present illness Narrative Medicare Yearly Visit Medical B eligibilty date unable to find Date of last exam 12/30/2020 PAST MEDICAL HISTORY Diagnosis Date Abnormal mammogram, unspecified 2009 LEFT BREAST LESION biopsy neg Arthritis of knee 03/01/2013 Arthritis, lumbar spine 06/04/2018 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) [...] 11/02/2012 Osteopenia 09/14/2010 PAD (peripheral artery disease) ([facility]) Personal history of colonic polyps Colon polyps Polycythemia, secondary 03/14/2012 PVD (peripheral vascular disease) ([facility]) 10/17/2016 Restless legs 03/01/2013 Right shoulder pain 06/29/2018 Unspecified deformity of ankle and foot, acquired 09/10/2009 PAST SURGICAL HISTORY Procedure Laterality Date APPENDECTOMY age 9 ARTHRP ACETBLR/PROX FEM PROSTC AGRFT/ALGRFT Right 08/17/2020 Dr. Steve Delarosa ARTHRP KNE CONDYLE&PLATU MEDIAL&LAT COMPARTMENTS 5-2012 Knee replacement, total, left ARTL CATHJ/CANNULJ MNTR/TRANSFUSION [...] NEEDLE OR INTRACATHETER UPR/LXTR ARTERY 05/02/07 RIGHT [employer]S HELPER INTRO OF NEEDLE OR INTRACATHETER UPR/LXTR ARTERY 05/02/07 LEFT [employer]S HELPER INTRO OF NEEDLE OR INTRACATHETER UPR/LXTR ARTERY [...] 09/02/2014 [facility]CTV CATHJ 1ST 2ND ORD [facility] 09/07/06 RIGHT SLCTV CATHJ 1ST 2ND ORD [...] [facility]- Dr. Bartholomew [facility]- Dr. Zurdo Gutierrez- Joanne Weathers [facility] Tire Maintenance Technician- Dr. King dalton ent Manager Respiratory Care- Dr. Ragland End of Live Planning discussed [...] and provided to the patient: See below. Brianan Patel PA-C Chief Complaint Patient presents with: Medicare Wellness Exam HPI Joyce Calvert is a 77 year old female who [...] 03/01/2013 Arthritis, lumbar spine 06/04/2018 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) [...] 11/02/2012 Osteopenia 09/14/2010 PAD (peripheral artery disease) ([facility]) Personal history of colonic polyps Colon polyps Polycythemia, secondary 03/14/2012 PVD (peripheral vascular disease) ([facility]) 10/17/2016 Restless legs 03/01/2013 Right shoulder pain [...] NEEDLE OR INTRACATHETER UPR/LXTR ARTERY 05/02/07 RIGHT [employer]S HELPER INTRO OF NEEDLE OR INTRACATHETER UPR/LXTR ARTERY 05/02/07 LEFT [employer]S HELPER INTRO OF NEEDLE OR INTRACATHETER UPR/LXTR ARTERY [...] 09/02/2014 [facility]CTV CATHJ 1ST 2ND ORD [facility] 09/07/06 RIGHT SLCTV CATHJ 1ST 2ND ORD [facility] 09/07/06 LEFT STEREOTACTIC CORE BIOPSY 09/20/07 LEFT [...] ears normal, canals clear, TMs pearly judge. Nose/Sinuses: deferred- mask Oropharynx: deferred- mask. Neck: [...] Abs Lymph 1.00 - 4.00 k/uL 2.45 [place]% % 5.8 Abs [place] <0.87 k/uL 0.56 Eosin% % 2.2 Abs [...] Negative Negative Ketones, Urine Negative Negative Specific [place], Ur 1.005 - 1.030 1.018 Hemoglobin/Blood,Ur Negative [...] diet of 1000 mg/day for under 50, 2858-0059 mg/day for 50+ - Discussed need and [...] proceed with cryotherapy. 3 freeze/thaw cycles with [facility] liquid nitrogen spray gun to area as described above. Patient tolerated procedure well. Care instructions given. F/u routine in 6 months. Brianna Patel PA-C documented in this encounter [facility] 02-18-2022 Miscellaneous Notes Left message of same on pt's identified vm. Also sent message via . Rhina Salazar LPN Routine labs ordered. Pt comes in [...] Per pss pt is agreeable with this. Rhina Salazar LPN documented in this encounter [facility] 02-09-2022 Miscellaneous Notes Prescription was sent already Patient phones requesting refills as follows: Pending Prescriptions Disp Refills ROSUVASTATIN 40 MG TABLET 90 tablet 1 Sig: Take 1 tablet by mouth every evening. CHERI: No IVÁN 08/02/21 NOV 02/23/22 Please review and advise. Clay Knox LPN documented in this encounter [facility] 02-09-2022 Miscellaneous Notes See other encounter Patient phones requesting refills as follows: Pending Prescriptions Disp Refills ROSUVASTATIN 40 MG TABLET 90 tablet 1 Sig: Take 1 tablet by mouth every evening. CHERI: No IVÁN 08/02/21 NOV 02/23/22 Please review and advise. Clay Knox LPN documented in this encounter [facility] 02-08-2022 Miscellaneous Notes Patient phones requesting refills as follows: Pending Prescriptions Disp Refills POTASSIUM CHLORIDE ER 20 MEQ TABLET,EXTENDED RELEASE(PART/CRYST) 60 tablet 5 Sig: Take 1 tablet by mouth twice daily. CHERI: No IVÁN 08/02/21 NOV 02/23/22 Please review and advise. Clay Knox LPN documented in this encounter [facility] 02-08-2022 Miscellaneous Notes Patient phones requesting refills [...] mouth twice daily. CHERI: No IVÁN 08/02/21 NOV 02/23/22 Please review and advise. Clay Knox LPN documented in this encounter [facility] 02-01-2022 Miscellaneous Notes [facility] message routed to Maureen Weathers PA-C. I do not think this [place] message was intended for me, ? Cedrick Hector DPM documented in this encounter [facility] 12-04-2018 History of Past i llness Narrative Problem Noted Date Resolved Date Medication management 12/04/2018 12/09/2019 Right shoulder pain 06/29/2018 07/10/2020 Neck pain on right side 06/18/2018 07/10/20 20 Bilateral carotid artery disease 03/27/2017 12/09/2019 Overview: Sees [facility] f/u. Routine gynecological examination 03/06/2015 12/09/2019 Overview: [facility]. 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 Routine gynecological examination 03/06/2015 12/09/2019 Overview: [facility]. 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 Routine gynecological examination 03/06/2015 12/09/2019 Overview: [facility]. 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 Routine gynecological examination 03/06/2015 12/09/2019 Overview: [facility]. 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 Routine gynecological examination 03/06/2015 12/09/2019 Overview: Sees [facility]. 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 Routine gynecological examination 03/06/2015 12/09/2019 Overview: [facility]. 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 Routine gynecological examination 03/06/2015 12/09/2019 Overview: [facility]. 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 Routine gynecological examination 03/06/2015 12/09/2019 Overview: [facility]. 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 Routine gynecological examination 03/06/2015 12/09/2019 Overview: [facility]. 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 Routine gynecological examination 03/06/2015 12/09/2019 Overview: [facility]. 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 Routine gynecological examination 03/06/2015 12/09/2019 Overview: [facility]. 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 Routine gynecological examination 03/06/2015 12/09/2019 Overview: [facility]. 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 Routine gynecological examination 03/06/2015 12/09/2019 Overview: [facility]. 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 Routine gynecological examination 03/06/2015 12/09/2019 Overview: [facility]. 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 Routine gynecological examination 03/06/2015 12/09/2019 Overview: [facility]. 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 Routine gynecological examination 03/06/2015 12/09/2019 Overview: [facility]. 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 Routine gynecological examination 03/06/2015 12/09/2019 Overview: [facility]. 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 Routine gynecological examination 03/06/2015 12/09/2019 Overview: [facility]. 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 Routine gynecological examination 03/06/2015 12/09/2019 Overview: [facility]. 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 Routine gynecological examination 03/06/2015 12/09/2019 Overview: [facility]. 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 Routine gynecological examination 03/06/2015 12/09/2019 Overview: [facility]. 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 Routine gynecological examination 03/06/2015 12/09/2019 Overview: [facility]. 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 Routine gynecological examination 03/06/2015 12/09/2019 Overview: [facility]. 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 Routine gynecological examination 03/06/2015 12/09/2019 Overview: [facility]. 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 Routine gynecological examination 03/06/2015 12/09/2019 Overview: [facility]. 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 Routine gynecological examination 03/06/2015 12/09/2019 Overview: [facility]. 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 Routine gynecological examination 03/06/2015 12/09/2019 Overview: [facility]. 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 Routine gynecological examination 03/06/2015 12/09/2019 Overview: [facility]. 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 Routine gynecological examination 03/06/2015 12/09/2019 Overview: [facility]. 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 Routine gynecological examination 03/06/2015 12/09/2019 Overview: [facility]. 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 Routine gynecological examination 03/06/2015 12/09/2019 Overview: [facility]. 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 Routine gynecological examination 03/06/2015 12/09/2019 Overview: [facility]. 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 Routine gynecological examination 03/06/2015 12/09/2019 Overview: [facility]. 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 Routine gynecological examination 03/06/2015 12/09/2019 Overview: [facility]. 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 Routine gynecological examination 03/06/2015 12/09/2019 Overview: [facility]. 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 Routine gynecological examination 03/06/2015 12/09/2019 Overview: [facility]. 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 Routine gynecological examination 03/06/2015 12/09/2019 Overview: [facility]. 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 Routine gynecological examination 03/06/2015 12/09/2019 Overview: [facility]. 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 Routine gynecological examination 03/06/2015 12/09/2019 Overview: [facility]. 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 Routine gynecological examination 03/06/2015 12/09/2019 Overview: [facility]. 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 Routine gynecological examination 03/06/2015 12/09/2019 Overview: [facility]. 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 Routine gynecological examination 03/06/2015 12/09/2019 Overview: [facility]. 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 Routine gynecological examination 03/06/2015 12/09/2019 Overview: [facility]. 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 Routine gynecological examination 03/06/2015 12/09/2019 Overview: [facility]. 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 Routine gynecological examination 03/06/2015 12/09/2019 Overview: [facility]. 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 Routine gynecological examination 03/06/2015 12/09/2019 Overview: [facility]. 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 Routine gynecological examination 03/06/2015 12/09/2019 Overview: [facility]. 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 Routine gynecological examination 03/06/2015 12/09/2019 Overview: [facility]. 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 Routine gynecological examination 03/06/2015 12/09/2019 Overview: [facility]. 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 Routine gynecological examination 03/06/2015 12/09/2019 Overview: [facility]. 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 Routine gynecological examination 03/06/2015 12/09/2019 Overview: [facility]. 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 Routine gynecological examination 03/06/2015 12/09/2019 Overview: [facility]. 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 Routine gynecological examination 03/06/2015 12/09/2019 Overview: [facility]. 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 Routine gynecological examination 03/06/2015 12/09/2019 Overview: [facility]. 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 Routine gynecological examination 03/06/2015 12/09/2019 Overview: [facility]. 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 Routine gynecological examination 03/06/2015 12/09/2019 Overview: [facility]. 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 Routine gynecological examination 03/06/2015 12/09/2019 Overview: [facility]. 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 Routine gynecological examination 03/06/2015 12/09/2019 Overview: [facility]. 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 Routine gynecological examination 03/06/2015 12/09/2019 Overview: [facility]. 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 Routine gynecological examination 03/06/2015 12/09/2019 Overview: [facility]. 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 Routine gynecological examination 03/06/2015 12/09/2019 Overview: [facility]. Colon cancer screening 03/06/201512/09 Abdominal pain, unspecified site 07/08/2011 10/03/2012 Rectal bleeding 05/09/2011 10/03/2012 Old disruption of anterior cruciate ligament 9 10/03/2012 History of colonic polyps Overview: Colon polyps documented as of this encounter (statuses as of 06/21/2023) [facility] History of Past illness Narrative* Problem Noted Date Diagnosed Date Resolved Date Medication management 12/04/20182019 Right shoulder pain 06/29/2018 07/10/20 20 Neck pain on right side 06/18/201806/14 Bilateral carotid artery disease 03/27/2017 12/09/2019 Overview: Sees [facility] main for [facility] f/u. Routine gynecological examination 03/06/2015 12/09/2019 Overview: [facility]. Colon cancer screening 03/06/201512/09 Abdominal pain, unspecified site 07/08/2011 10/03/2012 Rectal bleeding 05/09/2011 10/03/2012 Old disruption of anterior cruciate ligament 9 10/03/2012 History of colonic polyps Overview: Colon polyps documented as of this encounter (statuses as of 07/24/2023) [facility] History of Past illness Narrative* Problem Noted Date Diagnosed Date Resolved Date Medication management 12/04/20182019 Right shoulder pain 06/29/2018 07/10/20 20 Neck pain on right side 06/18/201806/14 Bilateral carotid artery disease 03/27/2017 12/09/2019 Overview: Sees [facility] main for [facility] f/u. Routine gynecological examination 03/06/2015 12/09/2019 Overview: [facility]. Colon cancer screening 03/06/201512/09 Abdominal pain, unspecified site 07/08/2011 10/03/2012 Rectal bleeding 05/09/2011 10/03/2012 Old disruption of anterior cruciate ligament 9 10/03/2012 History of colonic polyps Overview: Colon polyps documented as of this encounter (statuses as of 07/24/2023) [facility] History of Past illness Narrative* Problem Noted Date Diagnosed Date Resolved Date Medication management 12/04/20182019 Right shoulder pain 06/29/2018 07/10/20 20 Neck pain on right side 06/18/201806/14 Bilateral carotid artery disease 03/27/2017 12/09/2019 Overview: Sees [facility] main for [facility] f/u. Routine gynecological examination 03/06/2015 12/09/2019 Overview: [facility]. Colon cancer screening 03/06/201512/09 Abdominal pain, unspecified site 07/08/2011 10/03/2012 Rectal bleeding 05/09/2011 10/03/2012 Old disruption of anterior cruciate ligament 9 10/03/2012 History of colonic polyps Overview: Colon polyps documented as of this encounter (statuses as of 08/01/2023) [facility] History of Past illness Narrative* Problem Noted Date Diagnosed Date Resolved Date Medication management 12/04/20182019 Right shoulder pain 06/29/2018 07/10/20 20 Neck pain on right side 06/18/201806/14 Bilateral carotid artery disease 03/27/2017 12/09/2019 Overview: Sees [facility] main for [facility] f/u. Routine gynecological examination 03/06/2015 12/09/2019 Overview: [facility]. Colon cancer screening 03/06/201512/09 Abdominal pain, unspecified site 07/08/2011 10/03/2012 Rectal bleeding 05/09/2011 10/03/2012 Old disruption of anterior cruciate ligament 9 10/03/2012 History of colonic polyps Overview: Colon polyps documented as of this encounter (statuses as of 08/31/2023) [facility] History of Past illness Narrative* Problem Noted Date Diagnosed Date Resolved Date Medication management 12/04/20182019 Right shoulder pain 06/29/2018 07/10/20 20 Neck pain on right side 06/18/201806/14 Bilateral carotid artery disease 03/27/2017 12/09/2019 Overview: Sees [facility] main for [facility] f/u. Routine gynecological examination 03/06/2015 12/09/2019 Overview: [facility]. Colon cancer screening 03/06/201512/09 Abdominal pain, unspecified site 07/08/2011 10/03/2012 Rectal bleeding 05/09/2011 10/03/2012 Old disruption of anterior cruciate ligament 9 10/03/2012 History of colonic polyps Overview: Colon polyps documented as of this encounter (statuses as of 09/17/2023) [facility] History of Past illness Narrative* Problem Noted Date Diagnosed Date Resolved Date Medication management 12/04/20182019 Right shoulder pain 06/29/2018 07/10/20 20 Neck pain on right side 06/18/201806/14 Bilateral carotid artery disease 03/27/2017 12/09/2019 Overview: Sees [facility] main for [facility] f/u. Routine gynecological examination 03/06/2015 12/09/2019 Overview: [facility]. Colon cancer screening 03/06/201512/09 Abdominal pain, unspecified site 07/08/2011 10/03/2012 Rectal bleeding 05/09/2011 10/03/2012 Old disruption of anterior cruciate ligament 9 10/03/2012 History of colonic polyps Overview: Colon polyps documented as of this encounter (statuses as of 10/03/2023) [facility] History of Past illness Narrative* Problem Noted Date Diagnosed Date Resolved Date Medication management 12/04/20182019 Right shoulder pain 06/29/2018 07/10/20 20 Neck pain on right side 06/18/201806/14 Bilateral carotid artery disease 03/27/2017 12/09/2019 Overview: See [facility] for [facility] f/u. Routine gynecological examination 03/06/2015 12/09/2019 Overview: [facility]. Colon cancer screening 03/06/201512/09 Abdominal pain, unspecified site 07/08/2011 10/03/2012 Rectal bleeding 05/09/2011 10/03/2012 Old disruption of anterior cruciate ligament 9 10/03/2012 History of colonic polyps Overview: Colon polyps documented as of this encounter (statuses as of 10/03/2023) [facility] History of Past illness Narrative* Problem Noted Date Diagnosed Date Resolved Date Medication management 12/04/20182019 Right shoulder pain 06/29/2018 07/10/20 20 Neck pain on right side 06/18/201806/14 Bilateral carotid artery disease 03/27/2017 12/09/2019 Overview: Sees [facility] main for [facility] f/u. Routine gynecological examination 03/06/2015 12/09/2019 Overview: [facility]. Colon cancer screening 03/06/201512/09 Abdominal pain, unspecified site 07/08/2011 10/03/2012 Rectal bleeding 05/09/2011 10/03/2012 Old disruption of anterior cruciate ligament 9 10/03/2012 History of colonic polyps Overview: Colon polyps documented as of this encounter (statuses as of 10/04/2023) [facility] History of Past illness Narrative* Problem Noted Date Diagnosed Date Resolved Date Medication management 12/04/20182019 Right shoulder pain 06/29/2018 07/10/20 20 Neck pain on right side 06/18/201806/14 Bilateral carotid artery disease 03/27/2017 12/09/2019 Overview: Sees [facility] main for [facility] f/u. Routine gynecological examination 03/06/2015 12/09/2019 Overview: [facility]. Colon cancer screening 03/06/201512/09 Abdominal pain, unspecified site 07/08/2011 10/03/2012 Rectal bleeding 05/09/2011 10/03/2012 Old disruption of anterior cruciate ligament 9 10/03/2012 History of colonic polyps Overview: Colon polyps documented as of this encounter (statuses as of 10/04/2023) [facility] History of Past illness Narrative* Problem Noted Date Diagnosed Date Resolved Date Medication management 12/04/20182019 Right shoulder pain 06/29/2018 07/10/20 20 Neck pain on right side 06/18/201806/14 Bilateral carotid artery disease 03/27/2017 12/09/2019 Overview: Sees [facility] main for [facility] f/u. Routine gynecological examination 03/06/2015 12/09/2019 Overview: [facility]. 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 Routine gynecological examination 03/06/2015 12/09/2019 Overview: [facility]. 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 Routine gynecological examination 03/06/2015 12/09/2019 Overview: [facility]. 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 Routine gynecological examination 03/06/2015 12/09/2019 Overview: [facility]. Colon cancer screening 03/06/201512/09 Abdominal pain, unspecified site 07/08/2011 10/03/2012 Rectal bleeding 05/09/2011 10/03/2012 Old disruption of anterior cruciate ligament 9 10/03/2012 History of colonic polyps Overview: Colon polyps documented as of this encounter (statuses as of 12/25/2023) [facility] History of Past illness Narrative* Problem Noted Date Diagnosed Date Resolved Date Medication management 12/04/20182019 Right shoulder pain 06/29/2018 07/10/20 20 Neck pain on right side 06/18/201806/14 Bilateral carotid artery disease 03/27/2017 12/09/2019 Overview: Sees [facility] main for [facility] f/u. Routine gynecological examination 03/06/2015 12/09/2019 Overview: [facility]. Colon cancer screening 03/06/201512/09 Abdominal pain, unspecified site 07/08/2011 10/03/2012 Rectal bleeding 05/09/2011 10/03/2012 Old disruption of anterior cruciate ligament 9 10/03/2012 History of colonic polyps Overview: Colon polyps documented as of this encounter (statuses as of 12/25/2023) [facility] History of Past illness Narrative* Problem Noted Date Diagnosed Date Resolved Date Medication management 12/04/20182019 Right shoulder pain 06/29/2018 07/10/20 20 Neck pain on right side 06/18/201806/14 Bilateral carotid artery disease 03/27/2017 12/09/2019 Overview: Sees [facility] main for [facility] f/u. Routine gynecological examination 03/06/2015 12/09/2019 Overview: [facility]. Colon cancer screening 03/06/201512/09 Abdominal pain, unspecified site 07/08/2011 10/03/2012 Rectal bleeding 05/09/2011 10/03/2012 Old disruption of anterior cruciate ligament 9 10/03/2012 History of colonic polyps Overview: Colon polyps documented as of this encounter (statuses as of 01/16/2024) [facility] History of Past illness Narrative* Problem Noted Date Diagnosed Date Resolved Date Medication management 12/04/20182019 Right shoulder pain 06/29/2018 07/10/20 20 Neck pain on right side 06/18/201806/14 Bilateral carotid artery disease 03/27/2017 12/09/2019 Overview: Sees [facility] main for [facility] f/u. Routine gynecological examination 03/06/2015 12/09/2019 Overview: [facility]. Colon cancer screening 03/06/201512/09 Abdominal pain, unspecified site 07/08/2011 10/03/2012 Rectal bleeding 05/09/2011 10/03/2012 Old disruption of anterior cruciate ligament 9 10/03/2012 History of colonic polyps Overview: Colon polyps documented as of this encounter (statuses as of 01/29/2024) [facility] History of Past illness Narrative* Problem Noted Date Diagnosed Date Resolved Date Medication management 12/04/20182019 Right shoulder pain 06/29/2018 07/10/20 20 Neck pain on right side 06/18/201806/14 Bilateral carotid artery disease 03/27/2017 12/09/2019 Overview: Sees [facility] main for [facility] f/u. Routine gynecological examination 03/06/2015 12/09/2019 Overview: [facility]. Colon cancer screening 03/06/201512/09 Abdominal pain, unspecified site 07/08/2011 10/03/2012 Rectal bleeding 05/09/2011 10/03/2012 Old disruption of anterior cruciate ligament 9 10/03/2012 History of colonic polyps Overview: Colon polyps documented as of this encounter (statuses as of 01/31/2024) [facility] History of Past illness Narrative* Problem Noted Date Diagnosed Date Resolved Date Medication management 12/04/20182019 Right shoulder pain 06/29/2018 07/10/20 20 Neck pain on right side 06/18/201806/14 Bilateral carotid artery disease 03/27/2017 12/09/2019 Overview: See [facility] main for [facility] f/u. Routine gynecological examination 03/06/2015 12/09/2019 Overview: [facility]. Colon cancer screening 03/06/201512/09 Abdominal pain, unspecified site 07/08/2011 10/03/2012 Rectal bleeding 05/09/2011 10/03/2012 Old disruption of anterior cruciate ligament 9 10/03/2012 History of colonic polyps Overview: Colon polyps documented as of this encounter (statuses as of 02/28/2024) [facility] History of Past illness Narrative* Problem Noted Date Diagnosed Date Resolved Date Medication management 12/04/20182019 Right shoulder pain 06/29/2018 07/10/20 20 Neck pain on right side 06/18/201806/14 Bilateral carotid artery disease 03/27/2017 12/09/2019 Overview: [facility] main for US f/u. Routine gynecological examination 03/06/2015 12/09/2019 Overview: [facility]. Colon cancer screening 03/06/201512/09 Abdominal pain, unspecified site 07/08/2011 10/03/2012 Rectal bleeding 05/09/2011 10/03/2012 Old disruption of anterior cruciate ligament 9 10/03/2012 History of colonic polyps Overview: Colon polyps documented as of this encounter (statuses as of 03/01/2024) [facility] Osteopenia, unspecified location Hypokalemia Hypopotassemia [facility] Diagnosis Hypokalemia Hypopotassemia [facility] Diagnosis Mixed hyperlipidemia- Primary Essential hypertension with goal blood pressure less than 140/90 Elevated hemoglobin A1c Other abnormal blood chemistry Current use of proton pump inhibitor Encounter for long-term (current) use of other medications [facility] Medicare annual wellness visit, subsequent- [...] Inflamed seborrheic keratosis [facility] Diagnosis Microscopic hematuria- Primary [facility] Diagnosis Essential hypertension Unspecified essential hypertension Hypokalemia [facility]assemia [facility] Diagnosis Acute pansinusitis, recurrence not specified- Primary [facility]* Diagnosis Muscle strain- Primary Unspecified site of sprain and strain [facility] Diagnosis Upper arm joint pain, right- Primary [facility] Diagnosis Hypokalemia Hypopotassemia [facility]* Diagnosis Acute otitis externa of right ear, unspecified type- Primary [facility] Diagnosis Essential hypertension Unspecified essential hypertension [facility] Diagnosis Otalgia, right [facility] Diagnosis Encounter for screening mammogram for breast cancer [facility] Diagnosis Essential hypertension with goal blood pressure less than 140/90- Primary [facility] Diagnosis Essential hypertension with goal blood pressure less than 140/90- Primary [facility] Diagnosis Acute otitis media, right- Primary Unspecified otitis media Impacted cerumen of right ear Impacted cerumen [facility] Diagnosis Hypokalemia Hypopotassemia [facility] Diagnosis Need for vaccination- Primary Need for prophylactic vaccination and inoculation against unspecified single disease [facility] Diagnosis Need for COVID-19 vaccine- Primary [facility] Diagnosis Acute gastritis without hemorrhage, unspecified gastritis type- Primary [facility] Diagnosis 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)- Primary Atherosclerosis of [place] arteries of the extremities with intermittent claudication Bilateral carotid artery stenosis Occlusion and stenosis of carotid artery without mention of cerebral infarction [facility] Diagnosis Post-COVID syndrome- Primary Oxygen dependent Dependence on supplemental oxygen Lung nodules Other nonspecific abnormal finding of lung field [facility] Essential hypertension Unspecified essential [facility] 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)- Primary Atherosclerosis of [place] arteries of the extremities with intermittent claudication Bilateral carotid artery stenosis Occlusion and stenosis of carotid artery without mention of cerebral infarction [facility] Diagnosis Bacterial sinusitis- Primary Unspecified sinusitis (chronic) Throat pain [facility] Diagnosis APPOINTMENT CANCELLED- Primary [facility] Diagnosis Medicare annual wellness visit, subsequent- Primary Routine general medical examination at a health care facility Advance directive in chart Other specified conditions influencing health status Essential hypertension with goal blood pressure less than 140/90 Mixed hyperlipidemia Elevated hemoglobin A1c Other abnormal blood chemistry PVD (peripheral vascular disease) (HCC) Peripheral vascular disease, unspecified 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) Atherosclerosis of [place] arteries of the extremities with intermittent claudication [...] legs syndrome (RLS) [facility] Diagnosis Polycythemia, secondary [facility] Diagnosis Essential hypertension Unspecified essential hypertension [facility] Diagnosis Osteopenia, unspecified location [facility] Diagnosis Hypokalemia Hypopotassemia [facility] Diagnosis Post-COVID syndrome- Primary [facility] Diagnosis Essential hypertension with goal blood pressure less than 140/90- Primary Mixed hyperlipidemia Elevated hemoglobin A1c Other abnormal blood chemistry Gastroesophageal reflux disease without esophagitis Esophageal reflux Depression, unspecified depression type Bilateral carotid artery stenosis Occlusion and stenosis of carotid artery without mention of cerebral infarction 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) Atherosclerosis of [place] arteries of the extremities with intermittent claudication [...] of other medications [facility] Diagnosis Lung nodules Other nonspecific abnormal finding of lung field [facility] Diagnosis Osteopenia, unspecified location Encounter for gynecological examination (general) (routine) without abnormal findings- Primary [facility] Diagnosis Encounter for routine gynecologic examination in Medicare patient- Primary Screening mammogram for breast cancer [facility] Diagnosis Encounter for screening mammogram for malignant neoplasm of breast Other screening mammogram [facility] Diagnosis Cognitive impairment, mild, so stated Mild cognitive impairment, so stated [facility]* Diagnosis 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 documented [facility] this [facility]* Diagnosis Bilateral carotid artery stenosis- Primary Occlusion and stenosis of carotid artery without mention of cerebral infarction Mixed hyperlipidemia PVD (peripheral vascular disease) (HCC) Peripheral vascular disease, unspecified 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) Atherosclerosis of muscogee arteries of the extremities with intermittent claudication [facility]* Diagnosis Sciatica, right side- Primary documented in this [facility]* Diagnosis Dysuria- Primary [facility]* Diagnosis Medicare annual wellness visit, subsequent- Primary Routine general medical examination at a health care facility Advance directive in chart Other specified conditions influencing health status Essential hypertension with goal blood pressure less than 140/90 Mixed hyperlipidemia Elevated hemoglobin A1c Other abnormal blood chemistry Gastroesophageal reflux disease without esophagitis Esophageal reflux Degeneration of lumbar or lumbosacral intervertebral disc Memory deficit Memory loss 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) Atherosclerosis of muscogee arteries of the extremities with intermittent claudication Polyneuropathy Unspecified hereditary and idiopathic peripheral neuropathy Restless legs Restless legs syndrome (RLS) PVD (peripheral vascular disease) (HCC) Peripheral vascular disease, unspecified Depression, unspecified depression type Class 2 severe obesity due to excess calories with serious comorbidity and body mass index (BMI) of 35.0 to 35.9 in adult ([facility]) [facility]* Diagnosis Essential hypertension with goal blood pressure less than 140/90- Primary documented in this encounter [facility]* Diagnosis Hypokalemia Hypopotassemia Essential hypertension Unspecified essential hypertension documented [facility]* Diagnosis Hypokalemia Hypopotassemia Essential hypertension Unspecified essential hypertension [facility] Diagnosis Encounter for screening mammogram for malignant neoplasm of breast- Primary Other screening mammogram Encounter for screening mammogram for malignant neoplasm of breast Other screening mammogram [facility] Diagnosis History of polymyalgia rheumatica- Primary Personal history of other musculoskeletal disorders Myalgia Mylagia and myositis, unspecified documented [facility] this [facility]* Diagnosis Degeneration of lumbar intervertebral disc- Primary Degeneration of lumbar or lumbosacral intervertebral disc Degeneration of lumbosacral intervertebral disc Degeneration of lumbar or lumbosacral intervertebral disc Radiculopathy of lumbosacral region Thoracic or lumbosacral neuritis or radiculitis, unspecified [facility] Diagnosis Acute pain of left knee- Primary Acute pain of left knee [facility] Diagnosis Acute pain of left knee documented [facility] this [facility]* Diagnosis Pre-op exam- Primary Preoperative examination, unspecified DDD (degenerative disc disease), lumbar Degeneration of lumbar or lumbosacral intervertebral disc Lumbosacral radiculopathy Thoracic or lumbosacral neuritis or radiculitis, unspecified Essential hypertension with goal blood pressure less than 140/90 PVD (peripheral vascular disease) ([facility]) Peripheral vascular disease, unspecified Elevated hemoglobin A1c Other abnormal blood chemistry Class 2 severe obesity due to excess calories with serious comorbidity and body mass index (BMI) of 35.0 to 35.9 in adult ([facility]) 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 oxygen therapy 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 ([facility]) Atherosclerosis of muscogee arteries of the extremities with intermittent claudication documented in this encounter [facility]* Diagnosis Urinary tract infection with hematuria, site unspecified- Primary documented in this encounter [facility]* Diagnosis Essential hypertension with goal blood pressure less than 140/90- Primary Bilateral leg edema Edema documented in this encounter [facility] note* Diagnosis Subclinical hypothyroidism- Primary Other specified acquired hypothyroidism documented in this encounter [facility] note* Diagnosis Urinary tract infection with hematuria, site unspecified- Primary documented in this encounter [facility] note* Diagnosis Essential hypertension with goal blood pressure less than 140/90- Primary Recurrent UTI (urinary tract infection) Urinary tract infection, site not specified documented in this encounter [facility] for referral (narrative)* Diagnostic Procedure Only (Routine) - Closed Specialty Diagnoses / Procedures Referred By Ryan del real Referred To Contact [facility] Diagnoses Encounter for screening mammogram for breast cancer Procedures GYPSY SCREENING SCREENING MAMMOGRAPHY BI 2-VIEW BREAST INC Taylor Baze APRN.THELMA [address] [place] [address] [facility] [address] [place] [address] Referral ID Status Reason Start Date Expiration Date V isits Requested Visits Authorized [id number] Closed Auto-Generate d Referral 08/31/2021 09/30/2022 1 1 [facility] for referral (narrative)* Outpatient Procedure (Routine) - Authorized Specialty Diagnoses / Procedures Referred By Ryan del real Referred To Contact [facility] Diagnoses 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) Bilateral carotid artery stenosis Procedures PVR ANK/TORO/TOE [facility] NON-INVAS PHYSIOLOGIC STD EXTREMITY ART 2 LEVEL Ketan Saha MD [address] [place] [address] [facility] [place] [address] [place] [address] Referral ID Status Reason Start Date Expiration Date Visits Requested Visits Authorized [id number] Authorized Auto-Generat ed Referral 2 10/31/2023 1 1 * Outpatient Procedure (Routine) - Authorized Specialty Diagnoses / Procedures Referred By Ryan t Referred To Contact [facility] Diagnoses 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) Bilateral carotid artery stenosis Procedures US CAROTID ARTERIES [facility] DUPLEX SCAN EXTRACRANIAL ART COMPL BI STUDY Ketan Saha MD [address] [place] [address] [facility] [place] [address] [place] [address] Referral ID Status Reason Start Date Expiration Date Visits Requested Visits Authorized [id number] Authorized Auto-Generat ed Referral 10/31/2023 1 1 [facility] for referral (narrative)* Diagnostic Procedure Only (Routine) - Pending Review Specialty Diagnoses / Procedures Referred By Ryan t Referred To Contact [facility] Diagnoses Encounter for routine gynecologic examination in Medicare patient Screening mammogram for breast cancer Procedures GYPSY SCREENING SCREENING MAMMOGRAPHY BI 2-VIEW BREAST INC Taylor Baez APRN.TSA SCREENER [address] [place] [address] [facility] [address] [place] [phone] Referral ID Status Reason Start Date Expiration Date Visits Requested Visits Authorized [id number] Pending Review Auto-Generat ed Referral 11/01/2024 1 1 [facility] for referral (narrative)* Diagnostic Procedure Only (Routine) - Closed Specialty Diagnoses / Procedures Referred By Ryan t Referred To Contact [facility] Diagnoses Encounter for screening mammogram for malignant neoplasm of breast Procedures GYPSY SCREENING SCREENING MAMMOGRAPHY BI 2-VIEW BREAST INC Taylor Baez APRN.CNP [address] [place] [address] [facility] [address] [place] [phone] Referral ID Status Reason Start Date Expiration Date V isits Requested Visits Authorized [id number] Closed Auto-Generate d Referral 08/16/2023 09/14/2024 1 1 [facility] for referral (narrative)* Diagnostic Procedure Only (Urgent) - Closed Specialty Diagnoses / Procedures Referred By Contac t Referred To Contact XR IMAGING Diagnoses Acute pain of left knee Procedures XR KNEE GENERAL 4V AP BOTH/PA BOTH/LAT/MERC LEFT RADIOLOGIC EXAM KNEE COMPLETE 4/MORE VIEWS Marcelo Mckeon APRN.TSA SCREENER [address] [place] [address] [place] [address] Referral ID Status Reason Start Date Expiration Date V isits Requested Visits Authorized [id number] Closed Auto-Generate d Referral 07/29/2024 08/28/2025 1 1 [facility] for referral (narrative)* Diagnostic Procedure Only (Urgent) - Closed Specialty Diagnoses / Procedures Referred By Contac t Referred To Contact XR IMAGING Diagnoses Acute pain of left knee Procedures XR KNEE GENERAL 4V AP BOTH/PA BOTH/LAT/MERC LEFT RADIOLOGIC EXAM KNEE COMPLETE 4/MORE VIEWS Marcelo Mckeon APRN.TSA SCREENER [address] [place] [address] [place] [address] Referral ID Status Reason Start Date Expiration Date V isits Requested Visits Authorized [id number] Closed Auto-Generate d Referral 07/29/2024 08/28/2025 1 1 [facility] for referral (narrative)* Outpatient Procedure (Routine) - New Request Specialty Diagnoses / Procedures Referred By Contac t Referred To [facility] Diagnoses Pre-op exam Procedures ECG COMPLETE ECG ROUTINE ECG W/LEAST 12 LDS W/I&R Brianna Patel PA-C [address] [place] [address] [facility] [place] [address] [facility] [place] [address] Referral ID Status Reason Start Date Expiration Date Visits Requested Visits Authorized [id number] New Request Auto-Generat ed Referral 08/06/2024 08/06/2025 1 1 [facility] for visit Narrative* Diagnostic Procedure Only (Routine) - Closed Specialty Diagnoses / Procedures Referred By Contac t Referred To Contact [facility] Diagnoses Encounter for screening mammogram for breast cancer Procedures GYPSY SCREENING SCREENING MAMMOGRAPHY BI 2-VIEW BREAST INC CAD Taylor Mahmood, LINUX SYSTEMS ENGINEER.TSA SCREENER [address] [place] [address] [facility] [address] [place] [address] Referral ID Status Reason Start Date Expiration Date V isits Requested Visits Authorized [id number] Closed Auto-Generate d Referral 08/31/2021 09/30/2022 1 1 [facility] for visit Narrative* Diagnostic Procedure Only (Routine) - Closed Specialty Diagnoses / Procedures Referred By Contac t Referred To Contact [facility] Diagnoses Encounter for screening mammogram for malignant neoplasm of breast Procedures GYPSY SCREENING SCREENING MAMMOGRAPHY BI 2-VIEW BREAST INC CAD Taylor Mahmood, LINUX SYSTEMS ENGINEER.TSA SCREENER [address] [place] [place] [address] [facility] [address] [place] [address] Referral ID Status Reason Start Date Expiration Date V isits Requested Visits Authorized [id number] Closed Auto-Generate d Referral 08/16/2023 09/14/2024 1 1 [facility] for visit Narrative* Diagnostic Procedure Only (Urgent) - Closed Specialty Diagnoses / Procedures Referred By Contac t Referred To Contact XR IMAGING Diagnoses Acute pain of left knee Procedures XR KNEE GENERAL 4V AP BOTH/PA BOTH/LAT/MERC LEFT RADIOLOGIC EXAM KNEE COMPLETE 4/MORE VIEWS Marcelo Mckeon, LINUX SYSTEMS ENGINEER.TSA SCREENER [address] [place] [address] [place] [address] Referral ID Status Reason Start Date Expiration Date V isits Requested Visits Authorized [id number] Closed Auto-Generate d Referral 07/29/2024 08/28/2025 1 1 [facility] Summary Purpose Family History No Family History Records FoundNo Family History Records Found Advance Directives No Advanced Directives Records FoundDocuments on File Type Date Recorded 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 Advance Directive(s) 03/11/2011 5:01 PM Documents on File Type Date Recorded 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 Advance Directive(s) 03/11/2011 5:01 PM Documents on File Type Date Recorded 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 Advance Directive(s) 01/11/2023 2:05 PM Advance Directive(s) 03/11/2011 5:01 PM Documents on File Type Date Recorded 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 Advance Directive(s) 01/11/2023 2:05 PM Advance Directive(s) 03/11/2011 5:01 PM Health Concerns Infection Onset Date Last Indicated Resolved Time COVID-19 Rule-Out 03/31/2022 03/31/2022 Reason for Referral Specialty Diagnoses / Procedures Referred By Contac t Referred To Contact CT IMAGING Diagnoses Lung nodules Procedures CT CHEST WO IVCON DIAGNOSTIC COMPUTED TOMOGRAPHY THORAX W/O CNTTRACIT Maureen Weathers PA-C [address] [place] [address] Ct Imaging Referral ID Status Reason Start Date Expiration Date Visits Requested Visits Authorized [id number] Pending Review Auto-Generat ed Referral 12/10/2023 1 1 Specialty Diagnoses / Procedures Referred By Contac t Referred To Contact CT IMAGING Diagnoses Lung nodules Procedures CT CHEST WO IVCON DIAGNOSTIC COMPUTED TOMOGRAPHY THORAX W/O CNTTRACIT Maureen Weathers PA-C [address] [place] [address] [place] [address] Referral ID Status Reason Start Date Expiration Date V isits Requested Visits Authorized [id number] Closed Auto-Generate d Referral 10/18/2022 12/02/2022 1 1 Specialty Diagnoses / Procedures Referred By Contac t Referred To Contact MR IMAGING Diagnoses Cognitive impairment, mild, so stated Procedures MRI BRAIN WO IVCON MRI BRAIN BRAIN STEM W/O CONTRAST MATERIAL Brianna Patel PA-C [address] [place] [address] [place] [address] Referral ID Status Reason Start Date Expiration Date V isits Requested Visits Authorized [id number] Closed Auto-Generate d Referral 11/21/2023 12/20/2024 1 1 Specialty Diagnoses / Procedures Referred By Ryan t Referred To Contact Rheumatology Diagnoses History of polymyalgia rheumatica Myalgia Procedures CONSULT TO RHEUM/IMMUN DISEASE OFFICE/OUTPATIENT NEW HIGH MDM 60 MINUTES Brianna Patel PA-C [address] [place] [address] Referral ID Status Reason Start Date Expiration Date Visits Requested Visits Authorized [id number] Authorized PCP Requested Referral 04/11/2024 04/11/2025 1 1 Additional Source Comments INFORMATION SOURCE (unrecogn ized section and content) DATE CREATED AUTHOR 09/24/2020 [facility] ([place]) DATE CREATED AUTHOR AUTHOR'S ORGANIZ ATION 08/27/2024 [facility] Source Comments (unrecognize d section and content) In the event this informatio n is protected by the Federal Confidentiality of Alcohol and Drug Abuse Patient Records regulations: The Federal rules restrict any use of the information to criminally investigate or prosecute any alcohol or drug abuse patient.[facility] the event this information is protected by the Federal Confidentiality of Alcohol and Drug Abuse Patient Records regulations: The Federal rules restrict any use of the information to criminally investigate or prosecute any alcohol or drug abuse patient.[facility] the event this information is protected by the Federal Confidentiality of Alcohol and Drug Abuse Patient Records regulations: The Federal rules restrict any use of the information to criminally investigate or prosecute any alcohol or drug abuse patient.[facility] the event this information is protected by the Federal Confidentiality of Alcohol and Drug Abuse Patient Records regulations: The Federal rules restrict any use of the information to criminally investigate or prosecute any alcohol or drug abuse patient.[facility] the event this information is protected by the Federal Confidentiality of Alcohol and Drug Abuse Patient Records regulations: The Federal rules restrict any use of the information to criminally investigate or prosecute any alcohol or drug abuse patient.[facility] the event this information is protected by the Federal Confidentiality of Alcohol and Drug Abuse Patient Records regulations: The Federal rules restrict any use of the information to criminally investigate or prosecute any alcohol or drug abuse patient.[facility] the event this information is protected by the Federal Confidentiality of Alcohol and Drug Abuse Patient Records regulations: The Federal rules restrict any use of the information to criminally investigate or prosecute any alcohol or drug abuse patient.[facility] the event this information is protected by the Federal Confidentiality of Alcohol and Drug Abuse Patient Records regulations: The Federal rules restrict any use of the information to criminally investigate or prosecute any alcohol or drug abuse patient.[facility] the event this information is protected by the Federal Confidentiality of Alcohol and Drug Abuse Patient Records regulations: The Federal rules restrict any use of the information to criminally investigate or prosecute any alcohol or drug abuse patient.[facility] the event this information is protected by the Federal Confidentiality of Alcohol and Drug Abuse Patient Records regulations: The Federal rules restrict any use of the information to criminally investigate or prosecute any alcohol or drug abuse patient.[facility] the event this information is protected by the Federal Confidentiality of Alcohol and Drug Abuse Patient Records regulations: The Federal rules restrict any use of the information to criminally investigate or prosecute any alcohol or drug abuse patient.[facility] the event this information is protected by the Federal Confidentiality of Alcohol and Drug Abuse Patient Records regulations: The Federal rules restrict any use of the information to criminally investigate or prosecute any alcohol or drug abuse patient.[facility] the event this information is protected by the Federal Confidentiality of Alcohol and Drug Abuse Patient Records regulations: The Federal rules restrict any use of the information to criminally investigate or prosecute any alcohol or drug abuse patient.[facility] the event this information is protected by the Federal Confidentiality of Alcohol and Drug Abuse Patient Records regulations: The Federal rules restrict any use of the information to criminally investigate or prosecute any alcohol or drug abuse patient.[facility] the event this information is protected by the Federal Confidentiality of Alcohol and Drug Abuse Patient Records regulations: The Federal rules restrict any use of the information to criminally investigate or prosecute any alcohol or drug abuse patient.[facility] the event this information is protected by the Federal Confidentiality of Alcohol and Drug Abuse Patient Records regulations: The Federal rules restrict any use of the information to criminally investigate or prosecute any alcohol or drug abuse patient.[facility] the event this information is protected by the Federal Confidentiality of Alcohol and Drug Abuse Patient Records regulations: The Federal rules restrict any use of the information to criminally investigate or prosecute any alcohol or drug abuse patient.[facility] the event this information is protected by the Federal Confidentiality of Alcohol and Drug Abuse Patient Records regulations: The Federal rules restrict any use of the information to criminally investigate or prosecute any alcohol or drug abuse patient.[facility] the event this information is protected by the Federal Confidentiality of Alcohol and Drug Abuse Patient Records regulations: The Federal rules restrict any use of the information to criminally investigate or prosecute any alcohol or drug abuse patient.[facility] the event this information is protected by the Federal Confidentiality of Alcohol and Drug Abuse Patient Records regulations: The Federal rules restrict any use of the information to criminally investigate or prosecute any alcohol or drug abuse patient.[facility] the event this information is protected by the Federal Confidentiality of Alcohol and Drug Abuse Patient Records regulations: The Federal rules restrict any use of the information to criminally investigate or prosecute any alcohol or drug abuse patient.[facility] the event this information is protected by the Federal Confidentiality of Alcohol and Drug Abuse Patient Records regulations: The Federal rules restrict any use of the information to criminally investigate or prosecute any alcohol or drug abuse patient.[facility] the event this information is protected by the Federal Confidentiality of Alcohol and Drug Abuse Patient Records regulations: The Federal rules restrict any use of the information to criminally investigate or prosecute any alcohol or drug abuse patient.[facility] the event this information is protected by the Federal Confidentiality of Alcohol and Drug Abuse Patient Records regulations: The Federal rules restrict any use of the information to criminally investigate or prosecute any alcohol or drug abuse patient.[facility] the event this information is protected by the Federal Confidentiality of Alcohol and Drug Abuse Patient Records regulations: The Federal rules restrict any use of the information to criminally investigate or prosecute any alcohol or drug abuse patient.[facility] the event this information is protected by the Federal Confidentiality of Alcohol and Drug Abuse Patient Records regulations: The Federal rules restrict any use of the information to criminally investigate or prosecute any alcohol or drug abuse patient.[facility] the event this information is protected by the Federal Confidentiality of Alcohol and Drug Abuse Patient Records regulations: The Federal rules restrict any use of the information to criminally investigate or prosecute any alcohol or drug abuse patient.[facility] the event this information is protected by the Federal Confidentiality of Alcohol and Drug Abuse Patient Records regulations: The Federal rules restrict any use of the information to criminally investigate or prosecute any alcohol or drug abuse patient.[facility] the event this information is protected by the Federal Confidentiality of Alcohol and Drug Abuse Patient Records regulations: The Federal rules restrict any use of the information to criminally investigate or prosecute any alcohol or drug abuse patient.[facility] the event this information is protected by the Federal Confidentiality of Alcohol and Drug Abuse Patient Records regulations: The Federal rules restrict any use of the information to criminally investigate or prosecute any alcohol or drug abuse patient.[facility] the event this information is protected by the Federal Confidentiality of Alcohol and Drug Abuse Patient Records regulations: The Federal rules restrict any use of the information to criminally investigate or prosecute any alcohol or drug abuse patient.[facility] the event this information is protected by the Federal Confidentiality of Alcohol and Drug Abuse Patient Records regulations: The Federal rules restrict any use of the information to criminally investigate or prosecute any alcohol or drug abuse patient.[facility] TroyIn the event this information is protected by the Federal Confidentiality of Alcohol and Drug Abuse Patient Records regulations: The Federal rules restrict any use of the information to criminally investigate or prosecute any alcohol or drug abuse patient.[facility] TroyIn the event this information is protected by the Federal Confidentiality of Alcohol and Drug Abuse Patient Records regulations: The Federal rules restrict any use of the information to criminally investigate or prosecute any alcohol or drug abuse patient.[facility] TroyIn the event this information is protected by the Federal Confidentiality of Alcohol and Drug Abuse Patient Records regulations: The Federal rules restrict any use of the information to criminally investigate or prosecute any alcohol or drug abuse patient.[facility] TroyIn the event this information is protected by the Federal Confidentiality of Alcohol and Drug Abuse Patient Records regulations: The Federal rules restrict any use of the information to criminally investigate or prosecute any alcohol or drug abuse patient.[facility] TroyIn the event this information is protected by the Federal Confidentiality of Alcohol and Drug Abuse Patient Records regulations: The Federal rules restrict any use of the information to criminally investigate or prosecute any alcohol or drug abuse patient.[facility] TroyIn the event this information is protected by the Federal Confidentiality of Alcohol and Drug Abuse Patient Records regulations: The Federal rules restrict any use of the information to criminally investigate or prosecute any alcohol or drug abuse patient.[facility] TroyIn the event this information is protected by the Federal Confidentiality of Alcohol and Drug Abuse Patient Records regulations: The Federal rules restrict any use of the information to criminally investigate or prosecute any alcohol or drug abuse patient.[facility] TroyIn the event this information is protected by the Federal Confidentiality of Alcohol and Drug Abuse Patient Records regulations: The Federal rules restrict any use of the information to criminally investigate or prosecute any alcohol or drug abuse patient.[facility] TroyIn the event this information is protected by the Federal Confidentiality of Alcohol and Drug Abuse Patient Records regulations: The Federal rules restrict any use of the information to criminally investigate or prosecute any alcohol or drug abuse patient.[facility] TroyIn the event this information is protected by the Federal Confidentiality of Alcohol and Drug Abuse Patient Records regulations: The Federal rules restrict any use of the information to criminally investigate or prosecute any alcohol or drug abuse patient.[facility] TroyIn the event this information is protected by the Federal Confidentiality of Alcohol and Drug Abuse Patient Records regulations: The Federal rules restrict any use of the information to criminally investigate or prosecute any alcohol or drug abuse patient.[facility] TroyIn the event this information is protected by the Federal Confidentiality of Alcohol and Drug Abuse Patient Records regulations: The Federal rules restrict any use of the information to criminally investigate or prosecute any alcohol or drug abuse patient.[facility] TroyIn the event this information is protected by the Federal Confidentiality of Alcohol and Drug Abuse Patient Records regulations: The Federal rules restrict any use of the information to criminally investigate or prosecute any alcohol or drug abuse patient.[facility] TroyIn the event this information is protected by the Federal Confidentiality of Alcohol and Drug Abuse Patient Records regulations: The Federal rules restrict any use of the information to criminally investigate or prosecute any alcohol or drug abuse patient.[facility] TroyIn the event this information is protected by the Federal Confidentiality of Alcohol and Drug Abuse Patient Records regulations: The Federal rules restrict any use of the information to criminally investigate or prosecute any alcohol or drug abuse patient.[facility] TroyIn the event this information is protected by the Federal Confidentiality of Alcohol and Drug Abuse Patient Records regulations: The Federal rules restrict any use of the information to criminally investigate or prosecute any alcohol or drug abuse patient.[facility] TroyIn the event this information is protected by the Federal Confidentiality of Alcohol and Drug Abuse Patient Records regulations: The Federal rules restrict any use of the information to criminally investigate or prosecute any alcohol or drug abuse patient.[facility] TroyIn the event this information is protected by the Federal Confidentiality of Alcohol and Drug Abuse Patient Records regulations: The Federal rules restrict any use of the information to criminally investigate or prosecute any alcohol or drug abuse patient.[facility] TroyIn the event this information is protected by the Federal Confidentiality of Alcohol and Drug Abuse Patient Records regulations: The Federal rules restrict any use of the information to criminally investigate or prosecute any alcohol or drug abuse patient.[facility] TroyIn the event this information is protected by the Federal Confidentiality of Alcohol and Drug Abuse Patient Records regulations: The Federal rules restrict any use of the information to criminally investigate or prosecute any alcohol or drug abuse patient.[facility] TroyIn the event this information is protected by the Federal Confidentiality of Alcohol and Drug Abuse Patient Records regulations: The Federal rules restrict any use of the information to criminally investigate or prosecute any alcohol or drug abuse patient.[facility] TroyIn the event this information is protected by the Federal Confidentiality of Alcohol and Drug Abuse Patient Records regulations: The Federal rules restrict any use of the information to criminally investigate or prosecute any alcohol or drug abuse patient.[facility] TroyIn the event this information is protected by the Federal Confidentiality of Alcohol and Drug Abuse Patient Records regulations: The Federal rules restrict any use of the information to criminally investigate or prosecute any alcohol or drug abuse patient.[facility] TroyIn the event this information is protected by the Federal Confidentiality of Alcohol and Drug Abuse Patient Records regulations: The Federal rules restrict any use of the information to criminally investigate or prosecute any alcohol or drug abuse patient.[facility] TroyIn the event this information is protected by the Federal Confidentiality of Alcohol and Drug Abuse Patient Records regulations: The Federal rules restrict any use of the information to criminally investigate or prosecute any alcohol or drug abuse patient.[facility] TroyIn the event this information is protected by the Federal Confidentiality of Alcohol and Drug Abuse Patient Records regulations: The Federal rules restrict any use of the information to criminally investigate or prosecute any alcohol or drug abuse patient.[facility] TroyIn the event this information is protected by the Federal Confidentiality of Alcohol and Drug Abuse Patient Records regulations: The Federal rules restrict any use of the information to criminally investigate or prosecute any alcohol or drug abuse patient.[facility] TroyIn the event this information is protected by the Federal Confidentiality of Alcohol and Drug Abuse Patient Records regulations: The Federal rules restrict any use of the information to criminally investigate or prosecute any alcohol or drug abuse patient.[facility] TroyIn the event this information is protected by the Federal Confidentiality of Alcohol and Drug Abuse Patient Records regulations: The Federal rules restrict any use of the information to criminally investigate or prosecute any alcohol or drug abuse patient.[facility] TroyIn the event this information is protected by the Federal Confidentiality of Alcohol and Drug Abuse Patient Records regulations: The Federal rules restrict any use of the information to criminally investigate or prosecute any alcohol or drug abuse patient.[facility] TroyIn the event this information is protected by the Federal Confidentiality of Alcohol and Drug Abuse Patient Records regulations: The Federal rules restrict any use of the information to criminally investigate or prosecute any alcohol or drug abuse patient.[facility] TroyIn the event this information is protected by the Federal Confidentiality of Alcohol and Drug Abuse Patient Records regulations: The Federal rules restrict any use of the information to criminally investigate or prosecute any alcohol or drug abuse patient.[facility] TroyIn the event this information is protected by the Federal Confidentiality of Alcohol and Drug Abuse Patient Records regulations: The Federal rules restrict any use of the information to criminally investigate or prosecute any alcohol or drug abuse patient.[facility] TroyIn the event this information is protected by the Federal Confidentiality of Alcohol and Drug Abuse Patient Records regulations: The Federal rules restrict any use of the information to criminally investigate or prosecute any alcohol or drug abuse patient.[facility] TroyIn the event this information is protected by the Federal Confidentiality of Alcohol and Drug Abuse Patient Records regulations: The Federal rules restrict any use of the information to criminally investigate or prosecute any alcohol or drug abuse patient.[facility] TroyIn the event this information is protected by the Federal Confidentiality of Alcohol and Drug Abuse Patient Records regulations: The Federal rules restrict any use of the information to criminally investigate or prosecute any alcohol or drug abuse patient.[facility] TroyIn the event this information is protected by the Federal Confidentiality of Alcohol and Drug Abuse Patient Records regulations: The Federal rules restrict any use of the information to criminally investigate or prosecute any alcohol or drug abuse patient.[facility] TroyIn the event this information is protected by the Federal Confidentiality of Alcohol and Drug Abuse Patient Records regulations: The Federal rules restrict any use of the information to criminally investigate or prosecute any alcohol or drug abuse patient.[facility] TroyIn the event this information is protected by the Federal Confidentiality of Alcohol and Drug Abuse Patient Records regulations: The Federal rules restrict any use of the information to criminally investigate or prosecute any alcohol or drug abuse patient.[facility] TroyIn the event this information is protected by the Federal Confidentiality of Alcohol and Drug Abuse Patient Records regulations: The Federal rules restrict any use of the information to criminally investigate or prosecute any alcohol or drug abuse patient.[facility] TroyIn the event this information is protected by the Federal Confidentiality of Alcohol and Drug Abuse Patient Records regulations: The Federal rules restrict any use of the information to criminally investigate or prosecute any alcohol or drug abuse patient.[facility] TroyIn the event this information is protected by the Federal Confidentiality of Alcohol and Drug Abuse Patient Records regulations: The Federal rules restrict any use of the information to criminally investigate or prosecute any alcohol or drug abuse patient.[facility] TroyIn the event this information is protected by the Federal Confidentiality of Alcohol and Drug Abuse Patient Records regulations: The Federal rules restrict any use of the information to criminally investigate or prosecute any alcohol or drug abuse patient.[facility] TroyIn the event this information is protected by the Federal Confidentiality of Alcohol and Drug Abuse Patient Records regulations: The Federal rules restrict any use of the information to criminally investigate or prosecute any alcohol or drug abuse patient.[facility] TroyIn the event this information is protected by the Federal Confidentiality of Alcohol and Drug Abuse Patient Records regulations: The Federal rules restrict any use of the information to criminally investigate or prosecute any alcohol or drug abuse patient.[facility] TroyIn the event this information is protected by the Federal Confidentiality of Alcohol and Drug Abuse Patient Records regulations: The Federal rules restrict any use of the information to criminally investigate or prosecute any alcohol or drug abuse patient.[facility] TroyIn the event this information is protected by the Federal Confidentiality of Alcohol and Drug Abuse Patient Records regulations: The Federal rules restrict any use of the information to criminally investigate or prosecute any alcohol or drug abuse patient.[facility] TroyIn the event this information is protected by the Federal Confidentiality of Alcohol and Drug Abuse Patient Records regulations: The Federal rules restrict any use of the information to criminally investigate or prosecute any alcohol or drug abuse patient.[facility] TroyIn the event this information is protected by the Federal Confidentiality of Alcohol and Drug Abuse Patient Records regulations: The Federal rules restrict any use of the information to criminally investigate or prosecute any alcohol or drug abuse patient.[facility] TroyIn the event this information is protected by the Federal Confidentiality of Alcohol and Drug Abuse Patient Records regulations: The Federal rules restrict any use of the information to criminally investigate or prosecute any alcohol or drug abuse patient.[facility] TroyIn the event this information is protected by the Federal Confidentiality of Alcohol and Drug Abuse Patient Records regulations: The Federal rules restrict any use of the information to criminally investigate or prosecute any alcohol or drug abuse patient.[facility] TroyIn the event this information is protected by the Federal Confidentiality of Alcohol and Drug Abuse Patient Records regulations: The Federal rules restrict any use of the information to criminally investigate or prosecute any alcohol or drug abuse patient.[facility] TroyIn the event this information is protected by the Federal Confidentiality of Alcohol and Drug Abuse Patient Records regulations: The Federal rules restrict any use of the information to criminally investigate or prosecute any alcohol or drug abuse patient.[facility] TroyIn the event this information is protected by the Federal Confidentiality of Alcohol and Drug Abuse Patient Records regulations: The Federal rules restrict any use of the information to criminally investigate or prosecute any alcohol or drug abuse patient.[facility] TroyIn the event this information is protected by the Federal Confidentiality of Alcohol and Drug Abuse Patient Records regulations: The Federal rules restrict any use of the information to criminally investigate or prosecute any alcohol or drug abuse patient.[facility] TroyIn the event this information is protected by the Federal Confidentiality of Alcohol and Drug Abuse Patient Records regulations: The Federal rules restrict any use of the information to criminally investigate or prosecute any alcohol or drug abuse patient.[facility] TroyIn the event this information is protected by the Federal Confidentiality of Alcohol and Drug Abuse Patient Records regulations: The Federal rules restrict any use of the information to criminally investigate or prosecute any alcohol or drug abuse patient.[facility] TroyIn the event this information is protected by the Federal Confidentiality of Alcohol and Drug Abuse Patient Records regulations: The Federal rules restrict any use of the information to criminally investigate or prosecute any alcohol or drug abuse patient.[facility] TroyIn the event this information is protected by the Federal Confidentiality of Alcohol and Drug Abuse Patient Records regulations: The Federal rules restrict any use of the information to criminally investigate or prosecute any alcohol or drug abuse patient.[facility] TroyIn the event this information is protected by the Federal Confidentiality of Alcohol and Drug Abuse Patient Records regulations: The Federal rules restrict any use of the information to criminally investigate or prosecute any alcohol or drug abuse patient.[facility] TroyIn the event this information is protected by the Federal Confidentiality of Alcohol and Drug Abuse Patient Records regulations: The Federal rules restrict any use of the information to criminally investigate or prosecute any alcohol or drug abuse patient.[facility] TroyIn the event this information is protected by the Federal Confidentiality of Alcohol and Drug Abuse Patient Records regulations: The Federal rules restrict any use of the information to criminally investigate or prosecute any alcohol or drug abuse patient.[facility] TroyIn the event this information is protected by the Federal Confidentiality of Alcohol and Drug Abuse Patient Records regulations: The Federal rules restrict any use of the information to criminally investigate or prosecute any alcohol or drug abuse patient.[facility] TroyIn the event this information is protected by the Federal Confidentiality of Alcohol and Drug Abuse Patient Records regulations: The Federal rules restrict any use of the information to criminally investigate or prosecute any alcohol or drug abuse patient.[facility] TroyIn the event this information is protected by the Federal Confidentiality of Alcohol and Drug Abuse Patient Records regulations: The Federal rules restrict any use of the information to criminally investigate or prosecute any alcohol or drug abuse patient.[facility] TroyIn the event this information is protected by the Federal Confidentiality of Alcohol and Drug Abuse Patient Records regulations: The Federal rules restrict any use of the information to criminally investigate or prosecute any alcohol or drug abuse patient.[facility] TroyIn the event this information is protected by the Federal Confidentiality of Alcohol and Drug Abuse Patient Records regulations: The Federal rules restrict any use of the information to criminally investigate or prosecute any alcohol or drug abuse patient.[facility] TroyIn the event this information is protected by the Federal Confidentiality of Alcohol and Drug Abuse Patient Records regulations: The Federal rules restrict any use of the information to criminally investigate or prosecute any alcohol or drug abuse patient.[facility] TroyIn the event this information is protected by the Federal Confidentiality of Alcohol and Drug Abuse Patient Records regulations: The Federal rules restrict any use of the information to criminally investigate or prosecute any alcohol or drug abuse patient.[facility] TroyIn the event this information is protected by the Federal Confidentiality of Alcohol and Drug Abuse Patient Records regulations: The Federal rules restrict any use of the information to criminally investigate or prosecute any alcohol or drug abuse patient.[facility] TroyIn the event this information is protected by the Federal Confidentiality of Alcohol and Drug Abuse Patient Records regulations: The Federal rules restrict any use of the information to criminally investigate or prosecute any alcohol or drug abuse patient.[facility] TroyIn the event this information is protected by the Federal Confidentiality of Alcohol and Drug Abuse Patient Records regulations: The Federal rules restrict any use of the information to criminally investigate or prosecute any alcohol or drug abuse patient.[facility] TroyIn the event this information is protected by the Federal Confidentiality of Alcohol and Drug Abuse Patient Records regulations: The Federal rules restrict any use of the information to criminally investigate or prosecute any alcohol or drug abuse patient.[facility] TroyIn the event this information is protected by the Federal Confidentiality of Alcohol and Drug Abuse Patient Records regulations: The Federal rules restrict any use of the information to criminally investigate or prosecute any alcohol or drug abuse patient.[facility] TroyIn the event this information is protected by the Federal Confidentiality of Alcohol and Drug Abuse Patient Records regulations: The Federal rules restrict any use of the information to criminally investigate or prosecute any alcohol or drug abuse patient.[facility] TroyIn the event this information is protected by the Federal Confidentiality of Alcohol and Drug Abuse Patient Records regulations: The Federal rules restrict any use of the information to criminally investigate or prosecute any alcohol or drug abuse patient.[facility] TroyIn the event this information is protected by the Federal Confidentiality of Alcohol and Drug Abuse Patient Records regulations: The Federal rules restrict any use of the information to criminally investigate or prosecute any alcohol or drug abuse patient.[facility] Reason for Visit (unrecogniz ed section and content) Reason Comments Results Reason Onset Date Comments Refill Request 02/08/2022 [...] CT Specialty Diagnoses / Procedures Referred By Contac t Referred To Contact CT IMAGING Diagnoses Lung nodules Procedures CT CHEST WO IVCON DIAGNOSTIC COMPUTED TOMOGRAPHY THORAX W/O Maureen Mccracken PA-C [address] [place] [address] [place] [address] Referral ID Status Reason Start Date Expiration Date V isits Requested Visits Authorized [id number] Closed Auto-Generate d Referral 10/18/2022 12/02/2022 1 1 Reason Comments Well Woman Reason Onset Date Comments Refill Request 10/13/2023 Reason Comments ER Discharge Summary Imaging Specialty Diagnoses / Procedures Referred By Contac t Referred To Contact MR IMAGING Diagnoses Cognitive impairment, mild, so stated Procedures MRI BRAIN WO IVCON MRI BRAIN BRAIN STEM W/O CONTRAST MATERIAL Brianna Patel PA-C [address] [place] [address] [place] [address] Referral ID Status Reason Start Date Expiration Date V isits Requested Visits Authorized [id number] Closed Auto-Generate d Referral 11/21/2023 12/20/2024 1 1 Reason Onset Date Comments Refill Request 01/15/2024 Reason Comments Right Hip Pain migrating into leg x 1 week Reason Comments Release Of Medical Records Reason Comments Blood Pressure Check Reason Onset Date Comments Refill Request 03/15/2024 Reason Comments Orders Reason Comments Pain Pain in legs, arms, shoulders, history of polyneuropathy, sciatica X 2 days Reason Comments PT Eval Specialty Diagnoses / Procedures Referred By Contac t Referred To Contact Physical Therapy / PHYSICAL THERAPY Diagnoses Right leg pain Procedures NEW RS PT ORTH MSK Ramez Lanier MD [address] [place] [address] Ketan Baca PT Referral ID Status Reason Start Date Expiration Date V isits Requested Visits Authorized [id number] Authorized 11/13/2023 11/12/2024 99 99 Reason Onset Date Comments Refill Request 05/10/2024 Reason Onset Date Comments Refill Request 06/18/2024 Reason Comments Outside Imaging Reason Comments Outside Ortho Reason Comments CARD New Patient Consult Reason Comments Patient Update Pre surgical clearan ce Reason Comments Knee Pain left x 2 months Reason Comments Pre-Op Exam Reason Comments Edema Reason Comments Forms/letter Care Teams (unrecognized sec tion and content) Internal Control Consultant Relationship Specialty Start Date End Date Marcelo Acosta MD [address] [place], [place] [id number] PCP - General Family Practice 03/06/15 Marcelo Ragland MD [address] [place] [address] Physician Orthotics & Prosthetics 10/22/18 Internal Control Consultant Relationship Specialty Start Date End Date Marcelo Acosta MD [address] [place] [address] PCP - General Family Practice 03/06/15 Marcelo Ragland MD [address] [place] [address] Physician Orthotics & Prosthetics 10/22/18 Internal Control Consultant Relationship Specialty Start Date End Date Marcelo Acosta MD [address] [place] [address] PCP - General Family Practice 03/06/15 Marcelo Ragland MD [address] [place] [address] Physician Orthotics & Prosthetics 10/22/18 Internal Control Consultant Relationship Specialty Start Date End Date Marcelo Acosta MD [address] [place] [address] PCP - General Family Practice 03/06/15 Marcelo Ragland MD [address] [place] [address] Physician Orthotics & Prosthetics 10/22/18 Internal Control Consultant Relationship Specialty Start Date End Date Marcelo Acosta MD [address] [place] [address] PCP - General Family Practice 03/06/15 Marcelo Ragland MD [address] [place] [address] Physician Orthotics & Prosthetics 10/22/18 Internal Control Consultant Relationship Specialty Start Date End Date Marcelo Acosta MD [address] [place] [address] PCP - General Family Practice 03/06/15 Marcelo Ragland MD [address] [place] [address] Physician Orthotics & Prosthetics 10/22/18 Internal Control Consultant Relationship Specialty Start Date End Date Marcelo Acosta MD [address] [place] [address] PCP - General Family Practice 03/06/15 Marcelo Ragland MD [address] [place] [address] Physician Orthotics & Prosthetics 10/22/18 Internal Control Consultant Relationship Specialty Start Date End Date Marcelo Acosta MD [address] [place] [address] PCP - General Family Practice 03/06/15 Marcelo Ragland MD [address] [place] [address] Physician Orthotics & Prosthetics 10/22/18 Internal Control Consultant Relationship Specialty Start Date End Date Marcelo Acosta MD [address] [place] [address] PCP - General Family Practice 03/06/15 Marcelo Ragland MD [address] [place] [address] Physician Orthotics & Prosthetics 10/22/18 Internal Control Consultant Relationship Specialty Start Date End Date Marcelo Acosta MD [address] [place] [address] PCP - General Family Practice 03/06/15 Marcelo Ragland MD [address] [place] [address] Physician Orthotics & Prosthetics 10/22/18 Internal Control Consultant Relationship Specialty Start Date End Date Marcelo Acosta MD [address] [place] [address] PCP - General Family Practice 03/06/15 Marcelo Ragland MD [address] [place] [address] Physician Orthotics & Prosthetics 10/22/18 Internal Control Consultant Relationship Specialty Start Date End Date Marcelo Acosta MD [address] [place] [address] PCP - General Family Practice 03/06/15 Marcelo Ragland MD [address] [place] [address] Physician Orthotics & Prosthetics 10/22/18 Internal Control Consultant Relationship Specialty Start Date End Date Marcelo Acosta MD [address] [place] [address] PCP - General Family Practice 03/06/15 Marcelo Ragland MD [address] [place] [address] Physician Orthotics & Prosthetics 10/22/18 Internal Control Consultant Relationship Specialty Start Date End Date Marcelo Acosta MD [address] [place] [address] PCP - General Family Practice 03/06/15 Marcelo Ragland MD [address] [place] [address] Physician Orthotics & Prosthetics 10/22/18 Internal Control Consultant Relationship Specialty Start Date End Date Marcelo Acosta MD [address] [place] [address] PCP - General Family Practice 03/06/15 Marcelo Ragland MD [address] [place] [address] Physician Orthotics & Prosthetics 10/22/18 Internal Control Consultant Relationship Specialty Start Date End Date Marcelo Acosta MD [address] [place] [address] PCP - General Family Practice 03/06/15 Marcelo Ragland MD [address] [place] [address] Physician Orthotics & Prosthetics 10/22/18 Internal Control Consultant Relationship Specialty Start Date End Date Marcelo Acosta MD [address] [place] [address] PCP - General Family Medicine 03/06/15 Marcelo Ragland MD [address] [place] [address] Physician Orthotics & Prosthetics 10/22/18 Internal Control Consultant Relationship Specialty Start Date End Date Marcelo Acosta MD [address] [place] [address] PCP - General Family Medicine 03/06/15 Marcelo Ragland MD [address] [place] [address] Physician Orthotics & Prosthetics 10/22/18 Internal Control Consultant Relationship Specialty Start Date End Date Marcelo Acosta MD [address] [place] [address] PCP - General Family Medicine 03/06/15 Marcelo Ragland MD [address] [place] [address] Physician Orthotics & Prosthetics 10/22/18 Internal Control Consultant Relationship Specialty Start Date End Date Marcelo Acosta MD [address] [place] [address] PCP - General Family Medicine 03/06/15 Marcelo Ragland MD [address] [place] [phone] Physician Orthotics & Prosthetics 10/22/18 Internal Control Consultant Relationship Specialty Start Date End Date Marcelo Acosta MD [address] [place] [address] PCP - General Family Medicine 03/06/15 Marcelo Ragland MD [address] [place] [address] Physician Orthotics & Prosthetics 10/22/18 Internal Control Consultant Relationship Specialty Start Date End Date Marcelo Acosta MD [address] [place] [address] PCP - General Family Medicine 03/06/15 Marcelo Ragland MD [address] [place] [address] Physician Orthotics & Prosthetics 10/22/18 Internal Control Consultant Relationship Specialty Start Date End Date Marcelo Acosta MD [address] [place] [address] PCP - General Family Medicine 03/06/15 Marcelo Ragland MD [address] [place] [phone] Physician Orthotics & Prosthetics 10/22/18 Internal Control Consultant Relationship Specialty Start Date End Date Marcelo Acosta MD [address] [place] [address] PCP - General Family Medicine 03/06/15 Marcelo Ragland MD [address] [place] [address] Physician Orthotics & Prosthetics 10/22/18 Internal Control Consultant Relationship Specialty Start Date End Date Marcelo Acosta MD [address] [place] [address] PCP - General Family Medicine 03/06/15 Marcelo Ragland MD [address] [place] [address] Physician Orthotics & Prosthetics 10/22/18 Internal Control Consultant Relationship Specialty Start Date End Date Marcelo Acosta MD [address] [place] [address] PCP - General Family Medicine 03/06/15 Marcelo Ragland MD [address] [place] [address] Physician Orthotics & Prosthetics 10/22/18 Internal Control Consultant Relationship Specialty Start Date End Date Marcelo Acosta MD [address] [place] [address] PCP - General Family Medicine 03/06/15 Marcelo Ragland MD [address] [place] [address] Physician Orthotics & Prosthetics 10/22/18 Internal Control Consultant Relationship Specialty Start Date End Date Marcelo Acosta MD [address] [place] [address] PCP - General Family Medicine 03/06/15 Marcelo Ragland MD [address] [place] [address] Physician Orthotics & Prosthetics 10/22/18 Internal Control Consultant Relationship Specialty Start Date End Date Marcelo Acosta MD [address] [place] [address] PCP - General Family Medicine 03/06/15 Marcelo Ragland MD [address] [place] [address] Physician Orthotics & Prosthetics 10/22/18 Internal Control Consultant Relationship Specialty Start Date End Date Marcelo Acosta MD [address] [place] [address] PCP - General Family Medicine 03/06/15 Marcelo Ragland MD [address] [place] [address] Physician Orthotics & Prosthetics 10/22/18 Internal Control Consultant Relationship Specialty Start Date End Date Marcelo Acosta MD [address] [place] [address] PCP - General Family Medicine 03/06/15 Marcelo Ragland MD [address] [place] [address] Physician Orthotics & Prosthetics 10/22/18 Internal Control Consultant Relationship Specialty Start Date End Date Marcelo Acosta MD [address] [place] [address] PCP - General Family Medicine 03/06/15 Marcelo Ragland MD [address] [place] [address] Physician Orthotics & Prosthetics 10/22/18 Internal Control Consultant Relationship Specialty Start Date End Date Marcelo Acosta MD [address] [place] [address] PCP - General Family Medicine 03/06/15 Marcelo Ragland MD [address] [facility] [place] [address] Physician Orthotics & Prosthetics 10/22/18 Internal Control Consultant Relationship Specialty Start Date End Date Marcelo Acosta MD [address] [place] [address] PCP - General Family Medicine 03/06/15 Marcelo Ragland MD [address] [place] [address] Physician Orthotics & Prosthetics 10/22/18 Internal Control Consultant Relationship Specialty Start Date End Date Marcelo Acosta MD [address] [place] [address] PCP - General Family Medicine 03/06/15 Marcelo Ragland MD [address] [place] [address] Physician Orthotics & Prosthetics 10/22/18 Internal Control Consultant Relationship Specialty Start Date End Date Marcelo Acosta MD [address] [facility] [place] [address] PCP - General Family Medicine 03/06/15 Marcelo Ragland MD [address] [facility] [place] [address] Physician Orthotics & Prosthetics 10/22/18 Internal Control Consultant Relationship Specialty Start Date End Date Marcelo Acosta MD [address] [facility] [place] [address] PCP - General Family Medicine 03/06/15 Marcelo Ragland MD [address] [facility] [place] [address] Physician Orthotics & Prosthetics 10/22/18 Internal Control Consultant Relationship Specialty Start Date End Date Marcelo Acosta MD [address] [facility] [place] [address] PCP - General Family Medicine 03/06/15 Marcelo Ragland MD [address] [facility] [place] [address] Physician Orthotics & Prosthetics 10/22/18 Internal Control Consultant Relationship Specialty Start Date End Date Marcelo Acosta MD [address] [facility] [place] [address] PCP - General Family Medicine 03/06/15 Marcelo Ragland MD [address] [facility] [place] [address] Physician Orthotics & Prosthetics 10/22/18 Internal Control Consultant Relationship Specialty Start Date End Date Marcelo Acosta MD [address] [facility] [place] [address] PCP - General Family Medicine 03/06/15 Marcelo Ragland MD [address] [place], [place] [address] Physician Orthotics & Prosthetics 10/22/18 Internal Control Consultant Relationship Specialty Start Date End Date Marcelo Acosta MD [address] [place] [address] PCP - General Family Medicine 03/06/15 Marcelo aRgland MD [address] [place] [address] Physician Orthotics & Prosthetics 10/22/18 Internal Control Consultant Relationship Specialty Start Date End Date Marcelo Acosta MD [address] [place] [address] PCP - General Family Medicine 03/06/15 Marcelo Ragland MD [address] [place] [address] Physician Orthotics & Prosthetics 10/22/18 Internal Control Consultant Relationship Specialty Start Date End Date Marcelo Acosta MD [address] [place] [address] PCP - General Family Medicine 03/06/15 Marcelo Ragland MD [address] [place] [address] Physician Orthotics & Prosthetics 10/22/18 Internal Control Consultant Relationship Specialty Start Date End Date Marcelo Acosta MD [address] [place] [address] PCP - General Family Medicine 03/06/15 Marcelo Ragland MD [address] [facility], [place] [address] Physician Orthotics & Prosthetics 10/22/18 Internal Control Consultant Relationship Specialty Start Date End Date Marcelo Acosta MD [address] [facility] [place] [address] PCP - General Family Medicine 03/06/15 Marcelo Ragland MD [address] [facility], [place] [address] Physician Orthotics & Prosthetics 10/22/18 Internal Control Consultant Relationship Specialty Start Date End Date Marcelo Acosta MD [address] [facility] [place] [address] PCP - General Family Medicine 03/06/15 Marcelo Ragland MD [address] [facility], [place] [address] Physician Orthotics & Prosthetics 10/22/18 Internal Control Consultant Relationship Specialty Start Date End Date Marcelo Acosta MD [address] [facility] [place] [address] PCP - General Family Medicine 03/06/15 Marcelo Ragland MD [address] [facility] [address] Physician Orthotics & Prosthetics 10/22/18 Internal Control Consultant Relationship Specialty Start Date End Date Marcelo Acosta MD [address] [facility] [place] [address] PCP - General Family Medicine 03/06/15 Marcelo Ragland MD [address] [place] [address] Physician Orthotics & Prosthetics 10/22/18 Internal Control Consultant Relationship Specialty Start Date End Date Marcelo Acosta MD [address] [place] [address] PCP - General Family Medicine 03/06/15 Marcelo Ragland MD [address] [facility] [address] Physician Orthotics & Prosthetics 10/22/18 Internal Control Consultant Relationship Specialty Start Date End Date Marcelo Acosta MD [address] [facility] [address] PCP - General Family Medicine 03/06/15 Marcelo Ragland MD [address] [facility] [address] Physician Orthotics & Prosthetics 10/22/18 Internal Control Consultant Relationship Specialty Start Date End Date Marcelo Acosta MD [address] [facility] [address] PCP - General Family Medicine 03/06/15 Marcelo Ragland MD [address] [facility] [place] [address] Physician Orthotics & Prosthetics 10/22/18 Internal Control Consultant Relationship Specialty Start Date End Date Marcelo Acosat MD [address] [facility] [address] PCP - General Family Medicine 03/06/15 Marcelo Ragland MD [address] [place] [address] Physician Orthotics & Prosthetics 10/22/18 Internal Control Consultant Relationship Specialty Start Date End Date Marcelo Acosta MD [address] [place] [address] PCP - General Family Medicine 03/06/15 Marcelo Ragland MD [address] [place] [address] Physician Orthotics & Prosthetics 10/22/18 Internal Control Consultant Relationship Specialty Start Date End Date Marcelo Acosta MD [address] [place] [address] PCP - General Family Medicine 03/06/15 Marcelo Ragland MD [address] [place] [address] Physician Orthotics & Prosthetics 10/22/18 Internal Control Consultant Relationship Specialty Start Date End Date Marcelo Acosta MD [address] [place] [address] PCP - General Family Medicine 03/06/15 Marcelo Ragland MD [address] [place] [address] Physician Orthotics & Prosthetics 10/22/18 Internal Control Consultant Relationship Specialty Start Date End Date Marcelo Acosta MD [address] [place] [address] PCP - General Family Medicine 03/06/15 Marcelo Ragland MD [address] [place], [place] [address] Physician Orthotics & Prosthetics 10/22/18 Internal Control Consultant Relationship Specialty Start Date End Date Marcelo Acosta MD [address] [facility] [place] [address] PCP - General Family Medicine 03/06/15 Marcelo Ragland MD [address] [place] [address] Physician Orthotics & Prosthetics 10/22/18 Internal Control Consultant Relationship Specialty Start Date End Date Marcelo Acosta MD [address] [place] [address] PCP - General Family Medicine 03/06/15 Marcelo Ragland MD [address] [place] [address] Physician Orthotics & Prosthetics 10/22/18 Internal Control Consultant Relationship Specialty Start Date End Date Marcelo Acosta MD [address] [place] [address] PCP - General Family Medicine 03/06/15 Marcelo Ragland MD [address] [place] [address] Physician Orthotics & Prosthetics 10/22/18 Internal Control Consultant Relationship Specialty Start Date End Date Marcelo Acosta MD [address] [place], [place] [phone] PCP - General Family Medicine 03/06/15 Marcelo Ragland MD [address] [place] [address] Physician Orthotics & Prosthetics 10/22/18 Internal Control Consultant Relationship Specialty Start Date End Date Marcelo Acosta MD [address] [place] [address] PCP - General Family Medicine 03/06/15 Marcelo Ragland MD [address] [place] [address] Physician Orthotics & Prosthetics 10/22/18 Internal Control Consultant Relationship Specialty Start Date End Date Marcelo Acosta MD [address] [place] [address] PCP - General Family Medicine 03/06/15 Marcelo Ragland MD [address] [place] [address] Physician Orthotics & Prosthetics 10/22/18 Internal Control Consultant Relationship Specialty Start Date End Date Marcelo Acosta MD [address] [place] [address] PCP - General Family Medicine 03/06/15 Marcelo Ragland MD [address] [place] [address] Physician Orthotics & Prosthetics 10/22/18 Internal Control Consultant Relationship Specialty Start Date End Date Marcelo Acosta MD [address] [place] [address] PCP - General Family Medicine 03/06/15 Marcelo Ragland MD [address] [place] [address] Physician Orthotics & Prosthetics 10/22/18 Internal Control Consultant Relationship Specialty Start Date End Date Marcelo Acosta MD [address] [facility] [place] [address] PCP - General Family Medicine 03/06/15 Marcelo Ragland MD [address] [facility], [place] [address] Physician Orthotics & Prosthetics 10/22/18 Internal Control Consultant Relationship Specialty Start Date End Date Marcelo Acosta MD [address] [facility] [place] [address] PCP - General Family Medicine 03/06/15 Marcelo Ragland MD [address] [facility], [place] [address] Physician Orthotics & Prosthetics 10/22/18 Internal Control Consultant Relationship Specialty Start Date End Date Marcelo Acosta MD [address] [facility] [address] PCP - General Family Medicine 03/06/15 Marcelo Ragland MD [address] [facility] [address] Physician Orthotics & Prosthetics 10/22/18 Internal Control Consultant Relationship Specialty Start Date End Date Marcelo Acosta MD [address] [facility] [address] PCP - General Family Medicine 03/06/15 Marcelo Ragland MD [address] [place] [address] Physician Orthotics & Prosthetics 10/22/18 Internal Control Consultant Relationship Specialty Start Date End Date Marcelo Acosta MD [address] [place], [place] [address] PCP - General Family Medicine 03/06/15 Marcelo Ragland MD [address] [place] [address] Physician Orthotics & Prosthetics 10/22/18 Internal Control Consultant Relationship Specialty Start Date End Date Marcelo Acosta MD [address] [place], [place] [address]956[address] PCP - General Family [facility] 03/06/15 Marcelo Ragland MD [address] [place], [place] [address] Physician Orthotics & Prosthetics 10/22/18 FOR RECORDS [...] BE BASED ON THE PRIMARY CLINICAL RECORDS. [employer] provides no warranty or guarantee of the accuracy or completeness of information in this document.
[2024-08-28] MEDS: Lactated Ringers 1,000 ML 15 ML IV (06:20)
[2024-08-28] MEDS: Magnesium 2 GM for ERAS IV (06:21)
[2024-08-28] MEDS: Acetaminophen 500 MG Tablet 1000 MG PO ×2 (06:44→22:52)
--- NOTE | 2024-08-28 06:46 | PCM.PRE.AN2 ---
ASA Classification* ASA Classification ASA Classification: 3 Assessment & Plan Anesthesia* Anesthesia Assessment Anesthesia Assessment: Discussed sedation and/or anesthesia options, risks, benefits, and alternatives with patient/parents/legal guardian/POA. Questions invited. The patient/parents/legal guardian/POA seems to understand and agrees to proceed with anesthesia plan. Reviewed the physical assessment, medical history, allergy history and patient home medications list prior to surgery/procedure/anesthetic and documented any changes. Performed airway and anesthesia risk assessments. Anesthesia Type Anesthesia Type: General Anesthesia Focused Assessment* Temperature: 97.5 F Pulse Rate: 89 Blood Pressure: 151/62 Respiratory Rate: 18 Pulse Ox: 95 Airway Assessment Mouth opens: >3 cm Mallampati Score: II Focused Labs Anesthesia Preop lab: CBC WBC 8.4 K/mm3 (4.4-11.0) 08/20/24 16:06 RBC 5.11 M/mm3 (4.2-5.4) 08/20/24 16:06 Hgb 15.6 g/dL (12.0-15.0) H 08/20/24 16:06 Hct 47.1 % (37-47) H 08/20/24 16:06 Plt Count 164 K/mm3 (150-450) 08/20/24 16:06 CHEMISTRY Potassium 3.2 mmol/L (3.5-5.1) L 08/20/24 16:06 Sodium 141 mmol/L (136-145) 08/20/24 16:06 Magnesium 1.9 mg/dL (1.6-2.6) 08/20/24 16:06 Phosphorus 2.9 mg/dL (2.5-4.9) 07/22/21 05:56 BUN 25 mg/dL (7-18) H 08/20/24 16:06 Creatinine 0.88 mg/dL (0.55-1.02) 08/20/24 16:06 Glucose 97 mg/dL (74-106) 08/20/24 16:06 POC Glucose 124 mg/dL (70-110) H 08/17/20 11:39 TSH 1.47 uIU/mL (0.358-3.74) 02/08/21 09:47 COAG PT 12.9 SECONDS (11.7-14.9) 09/02/17 18:15 Pre-Assessment Diagnosis/Proposed Procedure Planned Operative Procedure(s): ERAS 360 Lumbar Fusion L3-4 and L4-5 Anesthesia History 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 When Was Last Pacemaker Check QUESTION #4 FULL TEXT: You/Your Family Experience fever (hyperthermia) with Anesthesia Last Oral Intake Last Oral intake: Last Oral Intake NPO since 03:40 08/28/24 06:31 Meds taken in AM with sips of Yes 08/28/24 06:31 water? 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 Female Yes 08/20/24 10:26 HX of Motion Sickness No 08/20/24 10:26 HX of N/V After Surgery No 08/20/24 10:26 Non-Smoker Yes 08/20/24 10:26 Duration of Surgery greater Yes 08/20/24 10:26 than 60 minutes Number of Risk Factors 3 08/20/24 10:26 PONV Score Moderate Risk 08/20/24 10:26 Height & Weight Height & Weight: Anesthesia: Height & Weight Height 4 ft 8 in 08/28/24 06:31 Weight: 67 kg 08/28/24 06:31 Body Mass Index (BMI) 33.1 08/28/24 06:31 Respiratory Assessment Respiratory Assessment - retail tire sales manager: Respiratory Tract Infection Hx - retail tire sales manager Hx Respiratory Tract Infection No 08/20/24 10:26 STOP Sleep Apnea STOP Sleep Apnea - retail tire sales manager: STOP Sleep Apnea - retail tire sales manager Hx Hypertension Yes: CONTROLLED ON MED 08/20/24 10:26 Hx Sleep Apnea No 08/20/24 10:26 CPAP No 08/20/24 10:26 BIPAP No 08/20/24 10:26 Do you snore loudly (louder No 08/20/24 10:26 than talking or can be heard Do you often feel tired/ No 08/20/24 10:26 fatigued/ sleepy during daytime? Has anyone observed you stop No 08/20/24 10:26 breathing during sleep? STOP Results Negative 08/20/24 10:26 QUESTION #5 FULL TEXT : Do you snore loudly (louder than talking or can be heard through closed doors)? 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 Specify any problems Hx of Preganancy in last 3 No 08/20/24 10:26 Months Nurse Filling Out Transfusion VCHRISTIN 08/20/24 10:26 & Questions: Date: 08/20/24 08/20/24 10:26 Time: 10:27 08/20/24 10:26 Patient unable to answer at this time (ie. confused, unrespo /Reproduction History /Reproductive History - retail tire sales manager: /Reproductive Hx- retail tire sales manager Hx Now Gestational Age (in weeks): EDC: Hx Hx Para Hx Section SAB Active Medications Active Medications: Current Medications Generic Name Dose Route Start Last Admin Trade Name Freq PRN Reason Stop Dose Admin Acetaminophen 1,000 mg 08/28/24 07:30 08/28/24 06:44 Acetaminophen 500 Mg Tablet PO 08/28/24 07:31 1,000 mg X1 ONE Administration Clindamycin Phosphate 900 mg in 50 mls @ 75 mls/hr 08/28/24 07:30 Cleocin IV 08/28/24 08:09 PREOP ONE Lactated Ringer's 1,000 mls @ 15 mls/hr 08/28/24 06:00 08/28/24 06:20 IV 09/02/24 19:19 15 mls/hr .Q48H LETA Administration Protocol Insulin Human Lispro 1 - 6 unit 08/28/24 07:30 Insulin Lispro 100 Unit/Ml Insuln.Pen SC 08/28/24 13:30 Q4H PRN PRN BG>/= 180, SEE PROTOCOL Protocol PFSH Medical History Leg cramps Wears hearing aid Post-menopausal Kidney stones DVT (deep venous thrombosis) Restless legs Back pain Injury of head and neck Gastric reflux Former smoker Shortness of breath on exertion History of pain when walking History of stress test Hypertension GERD (gastroesophageal reflux disease) Former smoker High cholesterol Arthritis Osteoarthritis History of blood clots Home Medications ?Medication ?Instructions ?Recorded ?Last Taken ?Type lansoprazole 30 mg capsule,delayed 30 mg PO DAILY gerd 09/14/14 08/28/24 History release (Prevacid) diltiazem HCl 180 mg 180 mg PO DAILY BP 02/03/21 08/28/24 History capsule,extended release 24 hr (Cartia XT) rosuvastatin 40 mg tablet 40 mg PO QHS CHOLESTEROL 06/30/21 08/27/24 History albuterol sulfate 2.5 mg/3 mL 2.5 mg (3 mL) inhalation Q4H PRN 07/01/21 07/21/21 Rx (0.083 %) solution for nebulization SOB &/OR WHEEZING 14 days #1 mL potassium chloride 20 mEq 40 meq (2 x 20 mEq) PO DAILY 07/01/21 08/27/24 Rx tablet,extended release(part/cryst) potassium #0 tabs menthol 4 % topical gel (Biofreeze 1 applic topical DAILY PAIN 07/21/21 Unknown History (menthol)) duloxetine 30 mg capsule,delayed 30 mg PO QAM DEPRESSION #90 caps 06/04/24 08/27/24 Rx release duloxetine 60 mg capsule,delayed 60 mg PO QHS DEPRESSION #90 caps 06/04/24 08/27/24 Rx release pramipexole 1 mg tablet 0.5 mg PO BID RLS 06/04/24 08/28/24 History celecoxib 200 mg capsule 200 mg PO BID PAIN 06/12/24 07/29/24 History aspirin 81 mg tablet,delayed 81 mg PO DAILY@0800 heart health 08/20/24 08/20/24 History release chlorthalidone 25 mg tablet 25 mg PO DAILY BP 08/20/24 08/27/24 History Allergy/AdvReac Type Severity Reaction Status Date / Time meperidine HCl (From Demerol) Allergy Severe Swelling Verified 08/28/24 06:18 poison adelaide extract (Poison Allergy Rash Verified 08/20/24 10:09 Adelaide Extract) atorvastatin calcium (From AdvReac Upset Verified 08/28/24 06:18 Lipitor) Stomach cefaclor (From Ceclor) AdvReac PALPITATIONS, Verified 08/28/24 06:18 CHEST PRESSURE, SHORT OF BREATH doxycycline AdvReac Upset Verified 08/28/24 06:18 Stomach hydrocodone AdvReac Upset Verified 08/28/24 06:18 Stomach Family History Mother Arthritis CVA (cerebral vascular accident) Father Myocardial infarction Heart disease Hypertension High cholesterol Surgical History Hx of colonoscopy Hx of bilateral breast reduction surgery Hx of surgical procedure History of hip replacement History of toe surgery History of renal stent History of cataract surgery History of knee replacement History of extraction of renal calculus History of carotid endarterectomy History of wnqyt-yhrct-ychkyqt bypass Social History Smoking Status: Former smoker Tobacco: How many years used: 40 Electronic Cigarette Use: not used how long ago did patient quit smokin years ago second hand exposure: No alcohol intake: current alcohol intake frequency: holidays/special occasions only substance use type: does not use alan/anabaptism: None seatbelt use: sometimes Review of Systems (Anesthesia) ROS Narrative System reviewed and no additional complaints, except as documented.
[2024-08-28 07:12] LABS: Bedside Glucose 157 mg/dL (74-106)
--- NOTE | 2024-08-28 07:25 | HP.PCM_ITS ---
History and Physical Date of Admission: 08/28/24 MR#: [id number] Acct: [id number] Name: TREY CALVERT Rep #: [id number] : 1945 Provider: Dr. Carlos Emmanuel MD Age/Sex: 79/F Location: [facility] [place] Status: Signed Intake Vital Signs 06/12/2410:52 Height 4 ft 8 in Intake Visit Reasons: lumbar spine Chief Complaint: Is patient in pain?: Yes Allergies meperidine HCl (From Demerol) Allergy (Severe, Verified 08/20/24 10:09) Swellingpoison adelaide extract (Poison Adelaide Extract) Allergy (Verified 08/20/24 10:09) Rashatorvastatin calcium (From Lipitor) Adverse Reaction (Verified 08/20/24 10:09) Upset Stomachcefaclor (From Ceclor) Adverse Reaction (Verified 08/20/24 08:36) PALPITATIONS, CHEST PRESSURE, SHORT OF BREATHdoxycycline Adverse Reaction (Verified 08/20/24 10:09) Upset Stomachhydrocodone Adverse Reaction (Verified 08/20/24 10:09) Upset Stomach Medications ?Medication ?Instructions ?Recorded ?Confirmed ?Type lansoprazole 30 mg capsule,delayed 30 mg PO DAILY gerd 09/14/14 08/20/24 History release (Prevacid) diltiazem HCl 180 mg 180 mg PO DAILY BP 02/03/21 08/20/24 History capsule,extended release 24 hr (Cartia XT) rosuvastatin 40 mg tablet 40 mg PO QHS CHOLESTEROL 06/30/21 08/20/24 History albuterol sulfate 2.5 mg/3 mL 2.5 mg (3 mL) inhalation Q4H PRN 07/01/21 08/20/24 Rx (0.083 %) solution for nebulization SOB &/OR WHEEZING 14 days #1 mL potassium chloride 20 mEq 40 meq (2 x 20 mEq) PO DAILY 07/01/21 08/20/24 Rx tablet,extended release(part/cryst) potassium #0 tabs menthol 4 % topical gel (Biofreeze 1 applic topical DAILY PAIN 07/21/21 08/20/24 History (menthol)) duloxetine 30 mg capsule,delayed 30 mg PO QAM DEPRESSION #90 caps 06/04/24 08/20/24 Rx release duloxetine 60 mg capsule,delayed 60 mg PO QHS DEPRESSION #90 caps 06/04/24 1007/06 Rx release pramipexole 1 mg tablet 0.5 mg PO BID RLS 06/04/24 08/20/24 History celecoxib 200 mg capsule 200 mg PO BID PAIN 06/12/24 08/20/24 History aspirin 81 mg tablet,delayed 81 mg PO DAILY@0800 heart health 08/20/24 08/20/24 History release chlorthalidone 25 mg tablet 25 mg PO DAILY BP 08/20/24 08/20/24 History Have you fallen in the past year?: No PFSH Medical History (Updated 08/20/24 @ 10:25 by Rebekah Teran) Leg cramps Wears hearing aid Post-menopausal Kidney stones DVT (deep venous thrombosis) Restless legs Back pain Injury of head and neck Gastric reflux Former smoker Shortness of breath on exertion History of pain when walking History of stress test Hypertension GERD (gastroesophageal reflux disease) Former smoker High cholesterol Arthritis Osteoarthritis History of blood clots Surgical History (Updated 08/20/24 @ 10:25 by Rebekah Teran) Hx of colonoscopy Hx of bilateral breast reduction surgery Hx of surgical procedure History of hip replacement History of toe surgery History of renal stent History of cataract surgery History of knee replacement History of extraction of renal calculus History of carotid endarterectomy History of abtyw-zigyu-rsqskjl bypass Family History Mother Arthritis CVA (cerebral vascular accident)Father Myocardial infarction Heart disease Hypertension High cholesterol Social History Smoking Status: Former smoker Tobacco: How many years used: 40 Electronic Cigarette Use: not used how long ago did patient quit smokin years ago second hand exposure: No alcohol intake: current alcohol intake frequency: holidays/special occasions only substance use type: does not use alan/advent: None seatbelt use: sometimes HPI lumbar spine Details: This documentation accurately reflects the service provided and the decisions made by me, Dr. Carlos Emmanuel MD 08/20/24 0825. Part of today?s visit was documented by [ ], acting as scribe. TREY CALVERT is a 79 year old F here today for her preop appointment of her l umbar spine. Patient states that she continues to have lumbar spine pain. She complains of pain into her right leg still. Patient has difficulty hearing today. She is ready for surgery. She has had clearance from her PCP, vascular, and pulmonology. HPI from 07/18/24: TREY CALVERT is a 79 year old F here today for MRI review of the lumbar spine. She states that she feels the pain is getting worse and takes Tylenol arthritis for the pain. She just finished PT with benefit and improvement of right sided pain. She does not think that her function has improved even with PT. she is still unable to walk long distances. She is willing to consider surgery. Says that she can walk about 2 blocks before needing to stop. Pain goes down her left leg now. She takes Tylenol with benefit. HPI from 06/12/24: TREY CALVERT is a 79 year old F here today NEW patient for low back pain. She states that she has been having pain since the first of the year. She states that she has pain from standing up from a seated position and walking. She states that her pain does radiates down her right leg into her foot. She does have numbness and tingling in both legs. Denies previous spine surgery. She states that prolonged walking/standing increases her pain. Patient does take Celebrex, Cymbalta, and Tylenol. She is currently in physical therapy at [facility] and has only been to 2 visits so far.She does see Dr. Aranda for injections and her last one was in December of this year. She notes that she is due for another injection but is unsure if she should have it done. She states that she got one month of relief from the injection. Joycelyn did not bring her hearing aids today and we had some minor trouble in our conversation. She has had back pain with radiating pain into the right lower extremity but also some to the left side. She also notices numbness and tingling in both legs. She has had aortoiliac surgery through her midline abdominal incision. She has had right hip replacement. She denies any left groin pain. She has had 2 injections which seem to help her temporarily. The last injection was in December. She has also been doing physical therapy. She has not had a recent MRI. Ortho Exam General General: Yes no acute distress Neurologic: Yes alert and Yes oriented x3 Spine SPINE TESTING CERVICAL THORACIC LUMBAR Musculoskeletal Strength 0=absent - 5=normal Details: Examination the back shows midline and paraspinal tenderness bilaterally. Neurologic evaluation of lower extremity shows 5 x 5 power normal shows normal sensations in all dermatomes. Patient has a midline belly surgical scar. Coding Level of Care Code Off vis,est,level 4 Diagnoses Spinal stenosis of lumbar region with neurogenic claudication M48.062 Lumbar radiculopathy M54.16 Spondylolisthesis, lumbar region M43.16 Time Spent (min) 35 Assessment and Plan Assessment and Plan (1) Spinal stenosis of lumbar region with neurogenic claudication: Status: Acute (2) Lumbar radiculopathy: Status: Acute (3) Spondylolisthesis, lumbar region: Status: Acute Plan Again reviewed prior imaging. These show L4-5 subtle grade 1 spondylolisthesis. Multilevel disc height loss noticed. L3-4 and L4-5 show vacuum phenomenon in the disc space. L5-S1 possibly has autofusion. L3-5 shows significant central and foraminal stenosis. Mild to moderate L2-3 central stenosis also noticed. I explained to her the imaging findings. The thoracic disc degeneration T9-10 with mild stenosis may cause her to have balance deficits due to myelopathy. At this point her main symptom seems to be neurogenic claudication. She would like to focus treatment of the lumbar spine for now. I asked her to keep an eye on the balance for now and if it worsens the thoracic stenosis may require surgery in the future. For her lumbar spine, I recommended options for treatment which include herminia nued nonoperative treat measures versus surgery. At this time due to the continued decrease in function, the patient wishes to discuss surgical options. Discussed anteroposterior lumbar fusion for L3-L4 and L-4-L5 with indirect decompression. All risk benefits and alternatives were discussed in detail. Patient is here today for a preop appointment for a L3-L5 fusion. Reviewed the benefits and risks of surgery. Risks of surgery include bleeding, infection, visceral injury, ileus, hardware failure, pseudoarthrosis, adjacent segment degeneration, pneumonia, DVT, pulmonary embolism, atelectasis, gait abnormality, persistent pain, stretch injuries, chance for future surgeries. Patient understands and agrees to proceed with surgery. Explained in detail the procedure of the lumbar fusion. Discussed post surgery restrictions such as no bending, lifting, or twisting. Answered all questions that she had today in preparation for next week. Patient wishes to proceed with surgery. Consent was signed. Patient is in agreement.
[2024-08-28] MEDS: Clindamycin 900 MG/50 ML BAG 75 MG IV ×3 (07:33→22:50)
--- NOTE | 2024-08-28 07:45 | RAD_ITS ---
STUDY: X-RAY - LUMBAR SPINE REASON FOR EXAM: Female, 79 years old. 360 FUSION L3-4 AND L4-5 TECHNIQUE: Multiple 19 sequential fluoroscopic spot films view(s) of the lumbar spine were obtained. 2 second fluoroscopy time. 67.72 mgy. COMPARISON: MR lumbar spine July 08, 2024. Lumbar spine radiograph June 12, 2024. FINDINGS: Posterior interbody fusion rods and pedicular screws and interbody disc prostheses L3-L5. RAD/Lumbar Spine 2 or 3 Views IMPRESSION: Please correlate with clinical service Electronically Signed: Orlando Rodas MD at 19:13 EDT ,
--- NOTE | 2024-08-28 12:42 | OP.PCM_ITS ---
Report of Operation Date of Procedure: 08/28/24 Description of Surgical Findings:: Preoperative diagnosis: L4-5 spondylolisthesis, L3-5 disc degeneration, stenosis with neurogenic claudication Postoperative diagnosis: Same Name of procedures L3-5 oblique lumbar interbody fusion (OLIF), minimally invasive right sided approach, lateral decubitus: ? L3-4 anterolateral spinal fusion 36078 ? L4-5 anterolateral fusion 10952/51 ? L3-4 insertion of cage 96090 ? L4-5 insertion of cage 67886/51 ? Bone graft aspirate left iliac crest separate incision ? Allograft cancellous chips Attending Surgeon: Dr. Carlos Emmanuel Estimated blood loss: 100 mL Anesthesia: General Complications: None Indications: Patient is a 79-year-old pleasant lady who has had a long history of low back pain and right worse than left lower extremity radiation with difficulty walking distances. Xrays & MRI revealed L3-5 severe disc degeneration with L4-5 grade 1 spondylolisthesis with stenosis. After undergoing a prolonged period of nonoperative treatment, the patient elected to undergo surgical decompression & fusion. All surgical options were discussed with the patient including anterior and posterior approaches. All risks and benefits associated with the procedure were explained to the patient. The risks include but are not limited to infection, bleeding, injury to nerves and vessels including major vessels like IVC and aorta, persistent paresthesia, persistent pain, dural tear, need for further procedures, adjacent segment degeneration, pseudoarthrosis, hardware failure, retrograde ejaculation, paralytic ileus, etc. Procedure: The patient was identified in the preoperative holding suite using Unique patient identifiers. Skin was marked, consent was reviewed, and all questions were answered. The patient was then brought back to the operative room. A surgical timeout was performed to make sure correct procedure was being done on the correct patient and all operative room staff were on the same page. General endotracheal anesthesia was then given to the patient. Barbosa catheter was inserted. The patient was then carefully positioned in left lateral decubitus position with the right side up on a regular OR table. Axillary roll was placed and all bony prominences were well- padded. Hip positioners were placed in the posterior buttocks and anterior sternal area. The surgical area was prepped and draped in usual fashion. Preoperative antibiotic was injected IV as preoperative antibiotic. A final timeout was then again done just before starting the procedure. A 2 inch incision oblique was taken in the right lower quadrant of the abdomen 2 fingerbreadths away from the iliac crest and the lower ribs. Sharp dissection with Bovie was carried out up to the fascia covering the external oblique. The external oblique, internal oblique and transversus abdominis muscles were split along the muscle fibers and retroperitoneal space was entered. Sponge sticks were utilized to move the bowel and peritoneum sjw-us-bba-way and psoas muscle was exposed staying within the retroperitoneal plane. Newsana retractor system was positioned and the retractor blade was applied onto the psoas. The interval between psoas and IVC was developed and appropriate retractors were placed. Once adequate interval was cleared, a disc space was identified and a marker x-ray was taken. This identified the L4-5 disc level. The prepsoas interval was then traced superiorly to identify the L3-4 disc level. Annulotomy was done with a long handled knife starting at L4-5. Pituitary was used to remove disc material. Curettes were used to prepare the endplates. Disc space spreaders were utilized to distract and increase the disc height. Near complete discectomy was performed. Trials of serially increasing sizes were used. A Jamshidi needle was used to aspirate bone marrow from the left anterior iliac crest through a separate incision and this aspirate was mixed with the allograft bone chips. A Depuy Stockton cage of size of the 18 x 50 x 12 mm with 15 degrees lordosis was packed with corticocancellous allograft bone chips mixed with bone marrow aspirate. This was inserted into the L4-5 disc space. The retractors were then repositioned to expose the L3-4 disc and the procedure was repeated with complete discectomy and endplate preparation. Smaller disc distractors were also used to bluntly perform a contralateral annulotomy at both levels. Cage size was 18 x 45 x 10 mm at L3-4. AP and lateral C-arm pictures were taken to confirm good position of the cage. Some bone chips were also packed around the cages. Hemostasis was confirmed. The retractor blades were removed. Closure was done in layers with a continuous strand of # 1 Vicryl in all muscle layers. 2-0 Vicryl was used for subcutaneous tissue and 4-0 for Monocryl for the skin. Steri-Strips were applied and 4 x 4 gauze and Tegaderm were applied. Surgeon: Carlos Emmanuel data security coordinator: Salena Mcrae Admit VTE Documentation VTE Mechan Device Prophylaxis: SCD's Procedures Musculoskeletal [id number]: Other Procedure See Report
--- NOTE | 2024-08-28 12:52 | PCM.OPRPT ---
Report of Operation Date of Procedure: 08/28/24 Description of Surgical Findings:: Preoperative diagnosis: L4-5 spondylolisthesis, L3-5 disc degeneration, stenosis with neurogenic claudication Postoperative diagnosis: Same Name of procedures: L3-5 posterior percutaneous pedicle screw instrumented fusion, prone: ? L3-4 posterior spinal fusion 04333 ? L3-5 posterior pedicle screw instrumentation 17967 ? L4-5 posterior fusion 84771/51 ? Allograft cancellous chips Attending Surgeon: Dr. Carlos Emmanuel Estimated blood loss: 100 mL (total for entire case) Anesthesia: General Complications: None Description of procedure: After the anterior procedure was complete, the patient was then turned supine. The patient was then transferred to Keven table in prone position. Back was prepped and draped in usual fashion. C-arm AP view was then taken. C-arm was positioned in a way that L3 was centralized and superior endplate of was parallel to the beam. Spinous process was centered between the pedicles. Midline was marked with skin marker and lateral borders of the pedicles were also marked. Skin marker was also utilized to ludmila transversely across the middle of the pedicles at L3. 2 transverse paramedian incisions of 1 inch were placed. The fascia was incised vertically. Finger dissection was utilized to palpate the transverse process and facet joint. Viper Prime screws with towers were inserted and docked onto the transverse processes. This was then slowly moved medially to reach the superior articular process of L3. This was then confirmed on C-arm and then a mallet was utilized to drive the trocar into the pedicle going up to the medial wall of the pedicle on AP view. This was performed both sides. C-arm lateral view confirmed that the tip of the trocar was in the vertebral body, and the screw was advanced into the pedicle and vertebral body. This was repeated similarly at L4 and L5 bilaterally. Screw sizes were 7 x 45 mm at L3, L4 and L5 on both sides. 75 mm precontoured titanium 5.5 mm lordotic reggie on the right and 70 mm on the left were then passed through the screw extensions and reduced down to the screws with the help of [employer] instrumentation system on both sides. AP and lateral view of the C-arm showed good positioning of the screws and cages. Final tightening with the torque screwdriver was then completed. [place] was utilized to roughen the facet joint at L3-4 and L4-5 on the right side. Cancellous allograft bone chips mixed with bone marrow aspirate were then placed over this decorticated area. Hemostasis was achieved. Closure was done in layers with 0 Vicryls for the fascia, 2-0 Vicryls for the subcutaneous tissue, and Monocryl for the skin. Dermabond was applied. Dressings were applied covered with Tegaderm. The patient was then turned supine onto a hospital bed. The patient was extubated and taken to PACU in stable condition. The patient tolerated the procedure well and no complications occurred. [employer] Pauline cage & Viper Prime minimally invasive pedicle screw instrumentation system was utilized in this case. No dural tear was identified intraoperatively. I was present for the entirety of the case and performed the surgery. Surgeon: Carlos Emmanuel oncology technician: Salena Mcrae Admit VTE Documentation VTE Mechan Device Prophylaxis: SCD's Procedures Musculoskeletal [id number]: Other Procedure See Report
[2024-08-28] MEDS: Ropivacaine 0.5% 30 ML Vial (12:58)
--- NOTE | 2024-08-28 13:15 | PCM.POST.ANE ---
Anesthesia: Postop Eval I Current Vital Signs Temperature: 96.9 F Pulse Rate: 76 Blood Pressure: 134/48 Respiratory Rate: 14 Pulse Ox: 92 Oxygen Delivery Method: Nasal Cannula Oxygen Flow Rate (L/min): 4 Assessment Airway patent: Yes Spontaneous unlabored respirations: Yes Mental status: Calm and Asleep nausea: No Vomiting: No Anesthesia Complication: No Fluid Hydration Crystalloid volume administer (ml): 2,100 Total IV fluid infused: 2,100 Progress Note Post-operative progress note: PT DIFFICULT TO AROUSE; WAS FALLING ASLEEP WHEN TALKING PREOP Anesthesia document: Postop Eval 1 completed: Yes
[2024-08-28] MEDS: Methocarbamol 500 MG Tablet 1000 MG PO ×2 (17:44→22:52)
[2024-08-28] MEDS: 0.9% Saline Lock 10 ML Syringe IV (17:44)
[2024-08-28] MEDS: Ketorolac 15 MG/ML Vial IV (17:44)
--- NOTE | 2024-08-28 19:00 | PCM.HP.STD ---
HPI - General General Date of Admission: 08/28/24 Date of Service: 08/28/24 Chief Complaint: Perioperative management after back surgery HPI Narrative TREY CALVERT, is a 79 F who was seen as hospitalist consult for perioperative management after scheduled elective surgery for L4-5 spondylolisthesis, L3 5 disc degeneration, stenosis with neurogenic claudication. Patient had lateral and posterior approach for the surgery. Denies went to see the patient she was sleeping and may be little confused as she woke up. She denies chest pain shortness of breath. She voided urine when asked about urine she said she felt mild burning pain but unclear what she means with regard to UTI. She also said she felt nausea and vomiting but none since that she did not had any vomiting. No fever or chills PFSH Medical History Leg cramps Wears hearing aid Post-menopausal Kidney stones DVT (deep venous thrombosis) Restless legs Back pain Injury of head and neck Gastric reflux Former smoker Shortness of breath on exertion History of pain when walking History of stress test Hypertension GERD (gastroesophageal reflux disease) Former smoker High cholesterol Arthritis Osteoarthritis History of blood clots Home Medications ?Medication ?Instructions ?Recorded ?Last Taken ?Type lansoprazole 30 mg capsule,delayed 30 mg PO DAILY gerd 09/14/14 08/28/24 History release (Prevacid) diltiazem HCl 180 mg 180 mg PO DAILY BP 02/03/21 08/28/24 History capsule,extended release 24 hr (Cartia XT) rosuvastatin 40 mg tablet 40 mg PO QHS CHOLESTEROL 06/30/21 08/27/24 History albuterol sulfate 2.5 mg/3 mL 2.5 mg (3 mL) inhalation Q4H PRN 07/01/21 07/21/21 Rx (0.083 %) solution for nebulization SOB &/OR WHEEZING 14 days #1 mL potassium chloride 20 mEq 40 meq (2 x 20 mEq) PO DAILY 07/01/21 08/27/24 Rx tablet,extended release(part/cryst) potassium #0 tabs menthol 4 % topical gel (Biofreeze 1 applic topical DAILY PAIN 07/21/21 Unknown History (menthol)) duloxetine 30 mg capsule,delayed 30 mg PO QAM DEPRESSION #90 caps 06/04/24 08/27/24 Rx release duloxetine 60 mg capsule,delayed 60 mg PO QHS DEPRESSION #90 caps 06/04/24 08/27/24 Rx release pramipexole 1 mg tablet 0.5 mg PO BID RLS 06/04/24 08/28/24 History celecoxib 200 mg capsule 200 mg PO BID PAIN 06/12/24 07/29/24 History aspirin 81 mg tablet,delayed 81 mg PO DAILY@0800 heart health 08/20/24 08/20/24 History release chlorthalidone 25 mg tablet 25 mg PO DAILY BP 08/20/24 08/27/24 History Allergy/AdvReac Type Severity Reaction Status Date / Time meperidine HCl (From Demerol) Allergy Severe Swelling Verified 08/28/24 06:18 poison adelaide extract (Poison Allergy Rash Verified 08/20/24 10:09 [place] Extract) atorvastatin calcium (From AdvReac Upset Verified 08/28/24 06:18 Lipitor) Stomach cefaclor (From Ceclor) AdvReac PALPITATIONS, Verified 08/28/24 06:18 CHEST PRESSURE, SHORT OF BREATH doxycycline AdvReac Upset Verified 08/28/24 06:18 Stomach hydrocodone AdvReac Upset Verified 08/28/24 06:18 Stomach Family History Mother Arthritis CVA (cerebral vascular accident) Father Myocardial infarction Heart disease Hypertension High cholesterol Surgical History Hx of colonoscopy Hx of bilateral breast reduction surgery Hx of surgical procedure History of hip replacement History of toe surgery History of renal stent History of cataract surgery History of knee replacement History of extraction of renal calculus History of carotid endarterectomy History of lefaz-dptev-wqrncqb bypass Social History Smoking Status: Former smoker Tobacco: How many years used: 40 Electronic Cigarette Use: not used how long ago did patient quit smokin years ago second hand exposure: No alcohol intake: current alcohol intake frequency: holidays/special occasions only substance use type: does not use alan/oriental orthodox: None seatbelt use: sometimes ROS ROS Narrative Constitutional: Reports fatigue and weakness. No fever. HEENT: Reports systems reviewed and no addt'l complaints, except as documented Respiratory/Chest: No acute shortness of breath or respiratory distress or wheezing. CVS: No chest pain pressure or tightness Gastrointestinal: Denies coffee ground emesis, hematemesis or vomiting Genitourinary: Complain of mild burning micturition. Spontaneous voided urine. Musculoskeletal: Had a spine surgery. No acute injury Neurologic: Denies seizure-like symptoms. skin: No ulcer. No rash Endocrinology: Reports systems reviewed and no addt'l complaints, except as documented Hematologic/Lymphatic: Reports systems reviewed and no addt'l complaints, except as documented Rest 14 ROS are negative except as mentioned in HPI Vital Signs Vital Signs Vital Signs: 08/28/24 06:31 08/28/24 06:31 08/28/24 06:47 Temperature 97.5 F L 97.5 F L Temperature Source Temporal Pulse Rate 89 89 Pulse Strength Respiratory Rate 18 18 Respiratory Effort Respiratory Pattern Normal Blood Pressure 151/62 H 151/62 H Blood Pressure Mean 91 Blood Pressure Source Monitor Blood Pressure Position Semi-Fowlers Blood Pressure Location Left Arm Baseline BP Pulse Ox 95 95 Oxygen Delivery Method Room Air Oxygen Flow Rate (L/min) EtCo2 (Normal 35-45 , high quality CPR 10-20 & ROSC>/=40mmHg 08/28/24 13:10 08/28/24 13:10 08/28/24 13:15 Temperature 96.9 F L Temperature Source Temporal Pulse Rate 73 73 Pulse Strength Normal (2+) Respiratory Rate 14 16 Respiratory Effort Respiratory Pattern Normal Blood Pressure 134/48 H 129/48 H Blood Pressure Mean 76 75 Blood Pressure Source Monitor Monitor Blood Pressure Position Semi-Fowlers Semi-Fowlers Blood Pressure Location Right Arm Right Arm Baseline BP 151/62 151/62 Pulse Ox 92 98 Oxygen Delivery Method Room Air Nasal Cannula Oxygen Flow Rate (L/min) 4 EtCo2 (Normal 35-45 , high quality CPR 10-20 & ROSC>/=40mmHg 18 08/28/24 13:16 08/28/24 13:20 08/28/24 13:25 Temperature 96.9 F L Temperature Source Pulse Rate 76 70 69 Pulse Strength Respiratory Rate 14 16 16 Respiratory Effort Respiratory Pattern Blood Pressure 134/48 H 128/45 H 123/48 H Blood Pressure Mean 72 73 Blood Pressure Source Monitor Monitor Blood Pressure Position Semi-Fowlers Semi-Fowlers Blood Pressure Location Right Arm Right Arm Baseline BP 151/62 151/62 Pulse Ox 92 98 97 Oxygen Delivery Method Nasal Cannula Nasal Cannula Nasal Cannula Oxygen Flow Rate (L/min) 4 4 4 EtCo2 (Normal 35-45 , high quality CPR 10-20 & ROSC>/=40mmHg 9 23 08/28/24 13:30 08/28/24 13:45 08/28/24 14:00 Temperature Temperature Source Pulse Rate 68 72 70 Pulse Strength Respiratory Rate 16 16 16 Respiratory Effort Respiratory Pattern Blood Pressure 122/46 H 140/43 H 131/47 H Blood Pressure Mean 71 75 75 Blood Pressure Source Monitor Monitor Monitor Blood Pressure Position Semi-Fowlers Semi-Fowlers Semi-Fowlers Blood Pressure Location Right Arm Right Arm Right Arm Baseline BP 151/62 151/62 151/62 Pulse Ox 99 99 98 Oxygen Delivery Method Nasal Cannula Nasal Cannula Nasal Cannula Oxygen Flow Rate (L/min) 4 4 4 EtCo2 (Normal 35-45 , high quality CPR 10-20 & ROSC>/=40mmHg 34 30 16 08/28/24 14:15 08/28/24 14:30 08/28/24 14:49 Temperature Temperature Source Pulse Rate 73 82 80 Pulse Strength Respiratory Rate 16 16 16 Respiratory Effort Respiratory Pattern Blood Pressure 138/42 H 138/46 H 147/44 H Blood Pressure Mean 74 76 78 Blood Pressure Source Monitor Monitor Monitor Blood Pressure Position Semi-Fowlers Semi-Fowlers Semi-Fowlers Blood Pressure Location Right Arm Right Arm Right Arm Baseline BP 151/62 151/62 151/62 Pulse Ox 98 97 98 Oxygen Delivery Method Nasal Cannula Nasal Cannula Nasal Cannula Oxygen Flow Rate (L/min) 4 4 4 EtCo2 (Normal 35-45 , high quality CPR 10-20 & ROSC>/=40mmHg 08/28/24 15:00 08/28/24 15:15 08/28/24 15:32 Temperature 97.7 F L Temperature Source Temporal Pulse Rate 80 82 84 Pulse Strength Respiratory Rate 16 16 16 Respiratory Effort Respiratory Pattern Blood Pressure 135/42 H 133/43 H 134/44 H Blood Pressure Mean 73 73 74 Blood Pressure Source Monitor Monitor Monitor Blood Pressure Position Semi-Fowlers Semi-Fowlers Semi-Fowlers Blood Pressure Location Right Arm Right Arm Right Arm Baseline BP 151/62 151/62 151/62 Pulse Ox 100 92 99 Oxygen Delivery Method Nasal Cannula Room Air Nasal Cannula Oxygen Flow Rate (L/min) 4 2 EtCo2 (Normal 35-45 , high quality CPR 10-20 & ROSC>/=40mmHg 41 42 08/28/24 15:54 08/28/24 16:23 08/28/24 17:53 Temperature 97.8 F 97.4 F L Temperature Source Oral Oral Pulse Rate 84 80 Pulse Strength Respiratory Rate 16 16 Respiratory Effort Normal Respiratory Pattern Blood Pressure 134/58 H 113/48 L Blood Pressure Mean 83 69 Blood Pressure Source Monitor Monitor Blood Pressure Position Semi-Fowlers Semi-Fowlers Blood Pressure Location Right Arm Right Arm Baseline BP Pulse Ox 98 97 Oxygen Delivery Method Nasal Cannula Nasal Cannula Nasal Cannula Oxygen Flow Rate (L/min) 2 2 2 EtCo2 (Normal 35-45 , high quality CPR 10-20 & ROSC>/=40mmHg Weight Weight: 147 lb 11.355 oz Body Mass Index (BMI) 33.1 Physical Exam Narrative General: Alert, Oriented x3, Cooperative HEENT: Atraumatic, PERRLA, EOMI, Normocephalic Oral: Oral mucosa moist.. No Gingival or Mucosal Lesions/ Ulcerations Neck: Supple, No JVD, Negative Carotid Bruits Chest wall/Lungs: Air entry diminished in bilateral lung bases. No crepitation/rhonchi Cardiovascular: Regular rate, Regular Rhythm, Normal S1, Normal S2, No M/G/R Abdomen: Bowel Sounds Present, Soft, Non Tender, Non-Distended : No renal angle tenderness. No suprapubic tenderness. Extremities: No edema, Capillary Refill Less than 3 Seconds Skin: No rashes, No breakdown Musculoskeletal: No Tenderness to Palpation of Joints or Extremities. Spine: Surgical dressing posteriorly is dry. Right flank/lateral abdomen dressing is also dry. Neurological: Cranial nerves II-XII grossly intact, DTR 2+/4. No acute focal neurological deficit. Psych/Mental Status: Normal Affect, Appropriate. Results Lab / Micro Data 08/20/24 16:06 08/20/24 16:06 Labs: Laboratory Results - last 24 hr 08/28/24 06:27: POC Glucose 157 H Assessment & Plan Assessment/Plan (1) Spinal stenosis of lumbar region with neurogenic claudication: PLAN: Plan 1. L4-5 spondylolisthesis, L3 5 disc degeneration with spinal stenosis with neurogenic claudication: Patient had L3-5 posterior percutaneous pedicle screw fusion, L3-5 posterior fusion from posterior and right lateral approach. Patient voided urine. Complain of mild dysuria unclear whether she really means it but UA and urine culture ordered. I do not think patient needs empiric antibiotic as I have low suspicion for UTI. Bowel and bladder care. DVT prophylaxis as per operating surgeon. PT and OT ordered. 2. Hypertension: Blood pressure is controlled 3. Dyslipidemia: Continue home medication 4. Other chronic comorbidities include restless leg syndrome, GERD, osteoporosis and bilateral carotid artery stenosis and depression: Home medication reconciliation done. Patient follows [facility] for carotid artery stenosis. Laboratory Results 08/28/24 06:27: POC Glucose 157 H Charges/Coding Multi Select Codes Visit Charges Office Visit/Consults: 28070 IP Consult L3 and 33672 IP Consult L4
[2024-08-28] MEDS: ROSUVASTATIN CALCIUM 40 MG TABLET PO (22:53)
[2024-08-28] MEDS: Pramipexole Di-HCl 0.5 MG Tablet PO (22:53)
[2024-08-28] MEDS: Senna/Docusate Sodium 1 Tablet 2 TABLET PO (22:53)
[2024-08-28] MEDS: DULoxetine Hcl 60 MG Capsule PO (22:54)
--- NOTE | 2024-08-28 22:58 | POSTOPAN2_ITS ---
Anesthesia Postop Eval I Sum Postop Eval Completion status Anesthesia document: Postop Eval 1 completed: Yes Anesthesia Postop Eval I Summary Anesthesia Postop Eval I Summary: Anesthesia Postop Eval I: Assessment Summary Airway patent Yes 08/28/24 13:16 [email or web address] Spontaneous unlabored Yes 08/28/24 13:16 [email or web address] respirations Mental status Calm,Asleep 08/28/24 13:16 [email or web address] nausea No 08/28/24 13:16 [email or web address] Vomiting No 08/28/24 13:16 [email or web address] Anesthesia Postop Eval I: Fluid Summary Crystalloid volume administer 2,100 08/28/24 13:16 [email or web address] (ml) Colloids volume administered ( ml) Blood Product volume administered (ml) Total IV fluid infused 2,100 08/28/24 13:16 [email or web address] Anesthesia Postop Eval I: Summary Notes Anesthesia Complication No 08/28/24 13:16 [email or web address] Anesthesia Complication Comment: Post-operative progress note PT DIFFICULT TO 08/28/24 13:16 [email or web address] [email or web address] AROUSE; WAS FALLING ASLEEP WHEN TALKING PREOP Anesthesia: Postop Eval II Evaluation Mental status: Awake and Calm Pain Level: 1 nausea: No Vomiting: No Complications Anesthesia Complication: No
--- NOTE | 2024-08-28 22:58 | PCM.POSTANE2 ---
Anesthesia Postop Eval I Sum Postop Eval Completion status Anesthesia document: Postop Eval 1 completed: Yes Anesthesia Postop Eval I Summary Anesthesia Postop Eval I Summary: Anesthesia Postop Eval I: Assessment Summary Airway patent Yes 08/28/24 13:16 CONSUMER SAFETY [email or web address] Spontaneous unlabored Yes 08/28/24 13:16 CONSUMER SAFETY [email or web address] respirations Mental status Calm,Asleep 08/28/24 13:16 CONSUMER SAFETY [email or web address].SCHR nausea No 08/28/24 13:16 CONSUMER SAFETY [email or web address].SCHR Vomiting No 08/28/24 13:16 CONSUMER SAFETY [email or web address] Anesthesia Postop Eval I: Fluid Summary Crystalloid volume administer 2,100 08/28/24 13:16 CONSUMER SAFETY [email or web address].SCHR (ml) Colloids volume administered ( ml) Blood Product volume administered (ml) Total IV fluid infused 2,100 08/28/24 13:16 CONSUMER SAFETY [email or web address].SCHR Anesthesia Postop Eval I: Summary Notes Anesthesia Complication No 08/28/24 13:16 CONSUMER SAFETY [email or web address].SCHR Anesthesia Complication Comment: Post-operative progress note PT DIFFICULT TO 08/28/24 13:16 CONSUMER SAFETY INSPECTOR.SCHR AROUSE; WAS FALLING ASLEEP WHEN TALKING PREOP Anesthesia: Postop Eval II Evaluation Mental status: Awake and Calm Pain Level: 1 nausea: No Vomiting: No Complications Anesthesia Complication: No
[2024-08-29] MEDS: Ketorolac 15 MG/ML Vial IV ×2 (00:46→05:50)
[2024-08-29 03:52] VITALS: O2SAT 90
[2024-08-29 03:53] VITALS: BP 131/54; PULSE 87; RESP 16; TEMP 36.6; O2SAT 98
[2024-08-29] MEDS: Acetaminophen 500 MG Tablet 1000 MG PO ×2 (05:50→13:50)
[2024-08-29 06:44] LABS: Hemoglobin 12.1 g/dL (12.0-15.0); Mean Corp Hgb Conc 33.6 g/dL (32-36); Mean Corpuscular Hgb 31.3 pg (27.0-32.0); Mean Platelet Vol. 9.4 fl (6.2-12.0); Platelet Count 139 K/mm3 (150-450); RBC Distribution Width CV 13.6 % (11.6-14.6); RBC Distribution Width SD 46.6 fl (35.1-43.9); Red Blood Count 3.87 M/mm3 (4.2-5.4); White Blood Count 12.5 K/mm3 (4.4-11.0)
[2024-08-29 07:15] LABS: Anion Gap 8 (5-15); BUN 34 mg/dL (7-18); BUN/Creat Ratio 24.3 RATIO (10-20); Calcium,Total 8.8 mg/dL (8.5-10.1); Chloride 103 mmol/L (98-107); EST Glomerular Filtration Rate 39 mL/min (>60); Est Glom Filt Rate - Afr Amer 47 mL/min (>60); Estimated Creatinine Clearance 27.83 ml/min; Glucose 139 mg/dL (74-106); Potassium 3.4 mmol/L (3.5-5.1); Sodium Level 137 mmol/L (136-145)
[2024-08-29 07:56] LABS: Bacteria 0 SEEN /hpf (None Seen); Mucous, Urine 0 SEEN /hpf (<or=2+)
[2024-08-29 07:57] LABS: Color, Urine Yellow (Yellow); Glucose, Dipstick Normal (Normal); Ketone-Dipstick Negative (Negative); Leukocyte Esterase-Dipstick 25 /ul (Negative); Nitrite-Dipstick Negative (Negative); Occult Blood-Urine 25 /ul (Negative); Protein-Dipstick 30 mg/dl (Negative); Specific Gravity, Urine 1.025 (1.002-1.030); Urine Bilirubin Dipstick Negative (Negative); Urine Clarity Clear (Clear); Urine Urobilinogen Normal (Normal)
[2024-08-29 08:01] LABS: Red Blood Cells-Urine 0-5 SEEN /hpf (0-5); Squamous Epithelial Cells - UA 5-10 SEEN /hpf (5-10); White Blood Cells 0-5 SEEN /hpf (0-5)
[2024-08-29 08:08] VITALS: BP 123/40; PULSE 80; RESP 18; TEMP 36.1; O2SAT 95
[2024-08-29] MEDS: Potassium Chloride Oral Tablet 20 MEQ 40 MEQ PO (08:13)
[2024-08-29] MEDS: Senna/Docusate Sodium 1 Tablet 2 TABLET PO (08:14)
[2024-08-29] MEDS: DULoxetine Hcl 30 MG Capsule PO (08:14)
[2024-08-29] MEDS: Methocarbamol 500 MG Tablet 1000 MG PO ×2 (08:14→13:50)
[2024-08-29] MEDS: Pramipexole Di-HCl 0.5 MG Tablet PO (08:14)
[2024-08-29] MEDS: Lansoprazole 15 MG Capsule.DR 30 MG PO (08:15)
[2024-08-29] MEDS: Chlorthalidone 50 MG Tablet 25 MG PO (08:15)
[2024-08-29] MEDS: dilTIAZem CD 180 MG Capsule PO (08:27)
--- NOTE | 2024-08-29 08:55 | RAD_ITS ---
HISTORY: s/p lumbar fusion -- please do upright AP and LAT. TECHNIQUE: XR Spine Lumbar 2 or 3 Views. COMPARISON: None. FINDINGS: VERTEBRAE: Vertebral body heights preserved. Interval placement of posterior spinal fusion hardware of L3-5. Right hip arthroplasty. Advanced arthritis of the left hip. ALIGNMENT: Unchanged mild anterolisthesis of L4-5 and L5-S1. Mild scoliosis. INTERVERTEBRAL DISCS: Interbody fusion material of L3-4 and L4-5. Advanced intervertebral disc space narrowing with degenerative endplate changes at the other levels. SOFT TISSUES: Left abdominal calcification again seen. Retroperitoneal surgical clips. RAD/Lumbar Spine 2 or 3 Views IMPRESSION: Interval L3-5 posterior spinal fusion. No acute fracture or dislocation identified in the lumbar spine. Multilevel degenerative change. Electronically Signed: Jodee Mireles MD at 13:14 EDT ,
[2024-08-29] MEDS: Meloxicam 15 MG Tablet PO (11:39)
--- NOTE | 2024-08-29 11:42 | PCM.PN.ORT ---
Subjective Subjective Seen with Dr. Emmanuel. POD 1 L3-5 fusion. Xrays reviewed and look good. She was sitting upright in her chair comfortably, pain has been well managed. Patient had eaten a toast this morning with no nausea or vomiting. Did mention however that she was feeling a little dizzy at the moment, most likely related to not eating very much and pain medication. Objective Data Objective Data Vital Signs: Vital Signs Temp Pulse Resp BP Pulse Ox O2 Del Method O2 Flow Rate 97 F L 80 18 123/40 H 95 Room Air 2 08/29/24 08:08 08/29/24 08:08 08/29/24 08:08 08/29/24 08:08 08/29/24 08:08 08/29/24 08:10 08/29/24 03:53 Oxygen Flow Rate (L/min) 2 Oxygen Delivery Method Room Air Weight: 147 lb 11.355 oz Body Mass Index (BMI) 33.1 Intake & Output: Intake and Output for Last 24 Hours 08/27/24 08/28/24 08/29/24 23:59 23:59 23:59 Intake Total 2411 / 2511 405 / 405 Output Total 300 / 300 Balance 2111 / 2211 405 / 405 Lab / Micro Data 08/29/24 06:33 08/29/24 06:33 Labs: Laboratory Results - last 24 hr 08/28/24 04:15: Urine Color Cancelled, Urine Clarity Cancelled, Urine pH Cancelled, Ur Specific [place] Cancelled, U Specif Grav (Refrac) Cancelled, Urine Protein Cancelled, Urine Glucose (UA) Cancelled, Urine Ketones Cancelled, Urine Occult Blood Cancelled, Urine Nitrite Cancelled, Urine Bilirubin Cancelled, Urine Urobilinogen Cancelled, Ur Leukocyte Esterase Cancelled, Urine RBC Cancelled, Urine WBC Cancelled, Ur Squamous Epith Cells Cancelled, Ur Transition Epith Cell Cancelled, Ur Renal Epithelial Cell Cancelled, Calcium Oxalate Crystal Cancelled, Uric Acid Crystals Cancelled, Triple Phos Crystals Cancelled, Other Crystals Cancelled, Amorphous Sediment Cancelled, Urine Bacteria Cancelled, Hyaline Casts Cancelled, Fine Granular Casts Cancelled, Coarse Granular Casts Cancelled, Waxy Casts Cancelled, RBC Casts Cancelled, WBC Casts Cancelled, Urine Mucus Cancelled, Urine Trichomonas Cancelled, Urine Yeast Cancelled 08/29/24 04:15: Urine Color Yellow, Urine Clarity Clear, Urine pH 5.0, Ur Specific [place] 1.025, Urine Protein 30 H, Urine Glucose (UA) Normal, Urine Ketones Negative, Urine Occult Blood 25 H, Urine Nitrite Negative, Urine Bilirubin Negative, Urine Urobilinogen Normal, Ur Leukocyte Esterase 25 H, Urine RBC 0-5 SEEN, Urine WBC 0-5 SEEN, Ur Squamous Epith Cells 5-10 SEEN, Urine Bacteria 0 SEEN, Urine Mucus 0 SEEN 08/29/24 06:33: WBC 12.5 H, RBC 3.87 L, Hgb 12.1, Hct 36.0 L, MCV 93.0, MCH 31.3, MCHC 33.6, RDW Std Deviation 46.6 H, RDW Coeff of [place] 13.6, Plt Count 139 L, MPV 9.4, Sodium 137, Potassium 3.4 L, Chloride 103, Carbon Dioxide 26.0, Anion Gap 8, BUN 34 H, Creatinine 1.40 H, Estim Creat Clear Calc 27.83, Est GFR (MDRD) Af Amer 47 L, Est GFR (MDRD) Non-Af 39 L, BUN/Creatinine Ratio 24.3 H, Glucose 139 H, Calcium 8.8 Micro: Microbiology 08/20/24 16:06 Swab (Method) Nasal Screen MRSA/MSSA - Final Physical Exam Narrative Incisions covered with gauze and tegaderm. Bruising noticed. Neurological exam of the lower extremity shows 5X5 power. Normal sensation across all dermatomes. Const alert, oriented x3 and no apparent distress Assessment & Plan Assessment/Plan (1) Status post lumbar spinal fusion: PLAN: Plan PT OT cleared. Reviewed x-rays, look good. Home meds include oxycodone, methocarbamol, meloxicam, acetaminophen, senna. Patient has passed flatus and has tolerated a solid meal. She will follow-up in the office in 2 weeks and further imaging will be done at that time. No bending lifting or twisting restrictions were discussed with the patient with good understanding. Patient is in agreement.
[2024-08-29 11:44] VITALS: BP 124/43; PULSE 80; RESP 18; TEMP 36.3; O2SAT 98
--- NOTE | 2024-08-29 13:09 | CASEMGMT ---
OSMEL ANGEL Assessment Face to Face with patient for initial transition planning/care coordination assessment. OSMEL ANGEL introduced self and role at [facility], pt voices understanding. Pt is A&Ox4 and is resting comfortably in bed and is calm. Pt at bedside. Care providers, pharmacy, and demographics verified. 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 6-Click is 18. Pt denies acute needs including HHC. Pt states that she plans to f/u with the orthopedic doctor in 2 weeks and start OP PT and OT subsequently. Pt denies needing an Rx for this at this time. Pt states that she feels safe with this plan and denies further questions or concerns at this time. MS3 OSMEL ANGEL updated. Steve Delarosa RN, CM
--- NOTE | 2024-08-29 15:29 | PN.HOSP_ITS ---
Reason for Visit Reason for Visit: Diagnoses Spinal stenosis, lumbar region with neurogenic claudication (08/28/24) Encounter for other preprocedural examination (08/28/24) Arthrodesis status (08/28/24) Subjective Subjective Patient was seen and examined today, she states that she does not have any back discomfort today. Objective Data Objective Data Vital Signs: Vital Signs Temp Pulse Resp BP Pulse Ox O2 Del Method O2 Flow Rate 97.3 F L 80 18 124/43 H 98 Room Air 2 08/29/24 11:44 08/29/24 11:44 08/29/24 11:44 08/29/24 11:44 08/29/24 11:44 08/29/24 11:44 08/29/24 03:53 Oxygen Flow Rate (L/min) 2 Oxygen Delivery Method Room Air Weight: 67 kg Body Mass Index (BMI) 33.1 Intake & Output: Intake and Output for Last 24 Hours 08/27/24 08/28/24 08/29/24 23:59 23:59 23:59 Intake Total 2411 / 2511 405 / 405 Output Total 300 / 300 Balance 2111 / 2211 405 / 405 Lab / Micro Data 08/29/24 06:33 08/29/24 06:33 Labs: Laboratory Results - last 24 hr 08/28/24 04:15: Urine Color Cancelled, Urine Clarity Cancelled, Urine pH Cancelled, Ur Specific [place] Cancelled, U Specif Grav (Refrac) Cancelled, Urine Protein Cancelled, Urine Glucose (UA) Cancelled, Urine Ketones Cancelled, Urine Occult Blood Cancelled, Urine Nitrite Cancelled, Urine Bilirubin Cancelled, Urine Urobilinogen Cancelled, Ur Leukocyte Esterase Cancelled, Urine RBC Cancelled, Urine WBC Cancelled, Ur Squamous Epith Cells Cancelled, Ur Transition Epith Cell Cancelled, Ur Renal Epithelial Cell Cancelled, Calcium Oxalate Crystal Cancelled, Uric Acid Crystals Cancelled, Triple Phos Crystals Cancelled, Other Crystals Cancelled, Amorphous Sediment Cancelled, Urine Bacteria Cancelled, Hyaline Casts Cancelled, Fine Granular Casts Cancelled, Coarse Granular Casts Cancelled, Waxy Casts Cancelled, RBC Casts Cancelled, WBC Casts Cancelled, Urine Mucus Cancelled, Urine Trichomonas Cancelled, Urine Yeast Cancelled 08/29/24 04:15: Urine Color Yellow, Urine Clarity Clear, Urine pH 5.0, Ur Specific [place] 1.025, Urine Protein 30 H, Urine Glucose (UA) Normal, Urine Ketones Negative, Urine Occult Blood 25 H, Urine Nitrite Negative, Urine Bilirubin Negative, Urine Urobilinogen Normal, Ur Leukocyte Esterase 25 H, Urine RBC 0-5 SEEN, Urine WBC 0-5 SEEN, Ur Squamous Epith Cells 5-10 SEEN, Urine Bacteria 0 SEEN, Urine Mucus 0 SEEN 08/29/24 06:33: WBC 12.5 H, RBC 3.87 L, Hgb 12.1, Hct 36.0 L, MCV 93.0, MCH 31.3, MCHC 33.6, RDW Std Deviation 46.6 H, RDW Coeff of [place] 13.6, Plt Count 139 L, MPV 9.4, Sodium 137, Potassium 3.4 L, Chloride 103, Carbon Dioxide 26.0, Anion Gap 8, BUN 34 H, Creatinine 1.40 H, Estim Creat Clear Calc 27.83, Est GFR (MDRD) Af Amer 47 L, Est GFR (MDRD) Non-Af 39 L, BUN/Creatinine Ratio 24.3 H, G lucose 139 H, Calcium 8.8 Micro: Microbiology 08/20/24 16:06 Swab (Method) Nasal Screen MRSA/MSSA - Final Radiography Diagnostic Testing: Radiology Impression Lumbar Spine X-Ray 08/29/24 08:55 IMPRESSION: Interval L3-5 posterior spinal fusion. No acute fracture or dislocation identified in the lumbar spine. Multilevel degenerative change. Electronically Signed: Jodee Mireles MD at 13:14 EDT Reading Location ID and State: [facility] / MD Tel , Service support , Physical Exam Const alert, oriented x3, no apparent distress and healthy appearing General Appearance: cooperative, well kempt and well developed Orientation / Consciousness: awake, oriented to person, oriented to place and oriented to time HEENT normocephalic, head/scalp atraumatic and moist oral mucous membranes Eyes PERRL, EOMs intact bilaterally and conjunctivae normal Neck supple, no JVD, thyroid normal and no carotid bruits General: trachea midline Resp normal respiratory effort, no retractions, no use of accessory muscles and clear to auscultation bilaterally Auscultation: Negative for rales, rhonchi or wheezes Cardio regular rate, regular rhythm, S1 normal heart sound, S2 normal heart sound, no murmurs, no rub and no gallops GI normal to inspection, nondistended, normoactive bowel sounds, soft to palpation, non-tender and non-distended Extremity no clubbing, cyanosis or edema Skin no rashes or lesions noted General Skin Exam: no breakdown Neuro oriented x3, CN's II-XII intact bilaterally, moves all extremities, no focal motor deficits and no sensory deficits noted Sensorium / Orientation: awake and alert Speech: speech normal Psych affect normal Assessment & Plan Assessment/Plan (1) Hypertension: PLAN: Plan 1. Essential hypertension-patient will remain on her home medications, they will be adjusted as needed #2 chronic depression-patient is on Cymbalta #3 hyperlipidemia-patient is on a statin #4 degenerative disc disease of the lumbar spine-status post lumbar fusion, patient is being seen by PT and OT Total clinical time spent by myself addressing the patient's medical issues, reviewing all of her data, and collaborating with patient's care team: 25 minutes Charges/Coding Visit Charges Inpatient E&M: 40524 Subs Hosp L1
[2024-08-29] MEDS: Ondansetron ODT 4 MG Tablet PO (16:02)
== END 2024-08-29 16:30 | disposition home or self-care (01) | DRG 428 ==
PROVIDERS: Anesthesiology; Student in an Organized Health Care Education/Training Program; Admitting Provider Orthopaedic Surgery Orthopaedic Surgery of the Spine; PCP Family Medicine; Referring Provider Orthopaedic Surgery Orthopaedic Surgery of the Spine; Visit Provider Orthopaedic Surgery Orthopaedic Surgery of the Spine
PROC: 0SG10A0 Fusion of 2 or more Lumbar Vertebral Joints with Interbody Fusion Device, Anterior Approach, Anterior Column, Open Approach (ICD-10-PCS; principal; 2024-08-28 07:00)
DX: M43.16 Spondylolisthesis, lumbar region (principal); M48.04 Spinal stenosis, thoracic region; G25.81 Restless legs syndrome; I10 Essential (primary) hypertension; I65.29 Occlusion and stenosis of unspecified carotid artery; F32.A Depression, unspecified; M51.16 Intervertebral disc disorders with radiculopathy, lumbar region; M51.34 Other intervertebral disc degeneration, thoracic region; E78.5 Hyperlipidemia, unspecified; M48.062 Spinal stenosis, lumbar region with neurogenic claudication; K21.9 Gastro-esophageal reflux disease without esophagitis; Z79.891 Long term (current) use of opiate analgesic; M81.0 Age-related osteoporosis without current pathological fracture; Z87.891 Personal history of nicotine dependence; Z96.641 Presence of right artificial hip joint
CPT/HCPCS: 36415; 72100; 76000; 80048; 81001; 82962; 83735; 85025; 85027; 86703; 86706; 86708; 86803; 86850; 86900; 86901; 87081; 87086; 94668; 97162; 97166; A4648; C1713; J7120; A4216; J2405

== ENCOUNTER 2024-10-11 09:30 | Outpatient (RCR) | payer MEDICARE, SELFPAY ==
--- NOTE | 2024-09-17 12:56 | HP.PTEVAL_ITS ---
Patient's Visit Information Visit Information Visit Information: TREY CALVERT is a 79 year old F referred to Physical Therapy by Dr. Carlos Emmanuel MD with a diagnosis of ARHRODESIS STATUS. Date of Evaluation: 09/17/24 Physical Therapist: Vamshi Palacio, PT, Cert MDT, OCS Visit Plan Frequency: 2x /Week Duration: 4 Weeks Plan: S/P LUMBAR FUSION AUG 28 PT INTERVENTIONS DLS ,POSTURAL EX'S ,BLE FLEXABILITY ,BALANCE TRAINING AND FUNCTIONAL STRENGTHENING Subjective Subjective: This 79 y/o female presents to physical therapy with s/p lumbar fusion. Patient underwent s/p L3-5 posterior percutaneous pedicle screw instrumented fusion,prone: L3-4 posterior spinal fusion, L3-5 posterior pedicle screw instrumentation , L4-5 posterior fusion 91543/[id number] Emmanuel at [facility] on Aug 28. Patient d/c DOS with fww .D/C with no BLT and 3-5 # lifting restriction Pain medication oxycodone. Patient has had back pain many years . Patient had MRI showed Extensive degenerative disc and facet joint disease resulting insignificant multilevel spinal and neural foraminal stenosis. Location of symptoms in back no leg symptoms. Denies paresthesia/tingling occ asional left foot. Patient was helping with ADLS initially transfers and bathing and assist with bathing. Patient sleeping in recliner. Patient spouse does cooking and cleaning along with daughter. Patient has 1 story home with steps . Bowel/bladder -. Coughing/sneezing -. Patient has no prior PT but tried pain management helped min. x-rays showed Mild dextroscoliosis centered at L2/L3. 2cm retrolisthesis of L3 on L4 and 2 mm of anterolisthesis of L4 on L5. 5 mm of anterolisthesis of L5 on S1. This is unchanged on the flexion and extension views.Patient condition affects QOL and function. Patient goals to decrease pain an walk better. SOCIAL: VOCATION: retired Objective Objective: POSTURE: mild forward posture ,scoliosis leans to left ,pelvis asymmetries ,left leg shorter NEURO: denies paresthesia/tingling ,reflexes L3-L4 ,L4-5,L5- S1 1/3 PALAPTION: unremarkable SKIN : incision well approximate GAIT: ambulates with fww scolisis leans to left ,( walks without device with increase lean to left from scoliosis and asymmetries ) LUMBAR ROM: flexion mod loss ,extension mod /severe loss ,side glides mod right ,left severe loss FLEXABILITY: hamstrings min tight MMT: quads/hams 4/5 ,hip flexion 4-/5 ,ankle 4/5 Special Tests L/S Slump test left side: Negative L/S Slump test right side: Negative L/S Left Straight Leg Raise: Negative L/S Right Straight Leg Raise: Negative Balance/Special Test Scores Oswestry Low Back Score: 34 Goals Goal 1:: Patient to be I with HEP for back Goal Time Frame: 4-6 Weeks Goal 2:: Patient to ambulate no device community distances . Goal Time Frame: 4-6 Weeks Goal 3:: Patient to improve lumbar ROM for function of recovery for to tie shoes Goal Time Frame: 4-6 Weeks Goal 4:: Patient to demonstrate 50% to improve function anD ADLS Goal Time Frame: 4-6 Weeks Goal 5:: Patient to improve back oswestry score by 5 points to improve QOL. Rehabilitation Potential Physical Therapy Diagnosis: This patient underwent s/p lumbar fusion Oc with weakness ,decrease lumbar ROM,gait and balance thus benefit from skilled PT Rehabilitation Potential: Good Anticipated Interventions Patient/Client Instruction: Educate patient on: Condition and Plan of Care For the Purpose of:: To decrease pain, To increase ROM, To improve muscle performance and motor function, To improve ability to perform ADL's, To increase tolerance to activity/condition/position, To improve ability of physical actions for home/community/work/leisure, To improve gait and locomotor functions, To improve health of tissue, To increase flexibility/ROM, To improve endurance, To improve balance and To improve tolerance to ADL's Therapeutic Exercise to Include: Strength training, Endurance training, Balance training, Postural training, Flexibilty training and Dynamic Lumbar Stabilization For the Purpose of:: To decrease pain, To increase ROM, To improve muscle performance and motor function, To improve ability to perform ADL's, To increase tolerance to activity/condition/position, To improve ability of physical actions for home/community/work/leisure, To improve health of tissue, To decrease soft tissue restriction, To increase flexibility/ROM and To improve tolerance to ADL's Text: Thank you for the opportunity to evaluate your patient. For Medicare and Medicare HMO plans, please review the plan of care and approve it. It will need to be FAXED BACK to us at [phone] for Medicare purposes. For Medicare only, by signing this I certify the plan of care. Please let me know if there are questions or concerns regarding this plan of care. Physician Signature: Date:
--- NOTE | 2024-11-12 15:17 | HP.PT.NRP ---
Patient Information Patient Information: TREY CALVERT was seen in my office for initial evaluation on 09/17/24. The following Plan of Care was established for this patient: POC Established Initial Frequency: 2x /Week Initial Duration: 4 Weeks Anticipated Interventions Patient/Client Instruction: Educate patient on: Condition and Plan of Care For the Purpose of:: To decrease pain, To increase ROM, To improve muscle performance and motor function, To improve ability to perform ADL's, To increase tolerance to activity/condition/position, To improve ability of physical actions for home/community/work/leisure, To improve gait and locomotor functions, To improve health of tissue, To increase flexibility/ROM, To improve endurance, To improve balance and To improve tolerance to ADL's Therapeutic Exercise to Include: Strength training, Endurance training, Balance training, Postural training, Flexibilty training and Dynamic Lumbar Stabilization For the Purpose of:: To decrease pain, To increase ROM, To improve muscle performance and motor function, To improve ability to perform ADL's, To increase tolerance to activity/condition/position, To improve ability of physical actions for home/community/work/leisure, To improve health of tissue, To decrease soft tissue restriction, To increase flexibility/ROM and To improve tolerance to ADL's Last Seen Last Seen: This patient was last seen in our office . Pertinent comments regarding their Physical therapy will appear below: Patient seen for PT for s/p lumbar fusion doing well thus d/c to HEP At this point I will be discontinuing this patient from physical therapy. I would be happy to see this patient again in the future if found appropriate by the physician. Thank you! Vamshi Palacio, PT, Cert MDT, OCS Balance/Gait/Functional tests Balance/Special Test Scores Oswestry Low Back Score: 34
== END 2024-10-11 19:00 | disposition home or self-care (01) ==
LOC: PT 09:30
PROVIDERS: PCP Family Medicine; Referring Provider Orthopaedic Surgery Orthopaedic Surgery of the Spine; Visit Provider Orthopaedic Surgery Orthopaedic Surgery of the Spine
DX: Z98.1 Arthrodesis status (principal)
CPT/HCPCS: 97110; 97162

== ENCOUNTER → 2024-11-07 | Outpatient (CLI) | payer MEDICARE, SELFPAY ==
--- NOTE | 2024-11-07 09:30 | STRESSREP ---
Stress Test Report Pharmacologic myocardial perfusion stress test. 79-year-old lady with a history of dyspnea Resting EKG demonstrates sinus rhythm with a rate of 64 bpm. Resting blood pressure is 122/64 mmHg. 0.4 mg of regadenoson was infused per usual protocol followed by rapid intravenous saline flush injection. Continuous EKG monitoring was performed. The maximum heart rate was 67 bpm which was 47% of max impacted heart rate the maximum workload was 1 metabolic equivalent. At rest there were no ST or T wave changes noted to suggest ischemia and at peak infusion nonspecific ST changes were noted which did not meet the criteria for ischemia. No clinical angina is noted. The final blood pressure was 112/60 mmHg. Myocardial perfusion protocol. 11.8 mCi of technetium 99m sestamibi was injected at rest. 0.4 mg of regadenoson was infused per usual protocol. At peak infusion 36 mCi of technetium 99m sestamibi was injected stress images were obtained stress and rest images were reconstructed and compared in the short axis vertical long and horizontal long axis. Gated images were also obtained. Perfusion SPECT analysis: Review of the stress images demonstrate normal uptake of tracer noted in all areas of the myocardium. The resting images similar demonstrated normal uptake of tracer noted in all areas of the myocardium. No areas of reversibility are noted to suggest ischemia and no previous infarct is noted. Gated SPECT analysis: The gated ejection fraction is 73%. Conclusion: Normal pharmacologic myocardial perfusion stress test. Preserved ejection fraction.
== END | disposition home or self-care (01) ==
PROVIDERS: PCP Family Medicine; Referring Provider Physician Assistant; Visit Provider Physician Assistant
DX: R06.02 Shortness of breath (principal); R06.09 Other forms of dyspnea
CPT/HCPCS: 78452; 93017; A9500; A4216; J2785

== ENCOUNTER → 2024-11-20 | Outpatient (CLI) | payer MEDICARE, SELFPAY ==
--- NOTE | 2024-11-20 07:58 | CT_ITS ---
STUDY: CT ABDOMEN AND PELVIS WITHOUT CONTRAST REASON FOR EXAM: Female, 79 years old. CALCULUS OF KIDNEY RADIATION DOSAGE (If Supplied By Facility): CTDIvol = ( 7.89 ) mGy, DLP = ( 332.92 ) mGycm TECHNIQUE: Transaxial images were obtained from the dome of the diaphragm to the symphysis pubis without oral contrast, and without intravenous contrast. Sagittal and coronal images were reconstructed. Individualized dose optimization techniques were used for this CT. COMPARISON: Comparison is made with prior study dated November 16, 2015. FINDINGS: Mild degree of linear scarring at the lung bases. Coronary artery calcification. Normal liver. Normal gallbladder and extrahepatic biliary system. Normal spleen. Normal pancreas. Normal bilateral adrenal glands. Tiny nonobstructive calculus in the lower pole of the right kidney. There is a 6 mm nonobstructive calculus in the lower pole calyx of the left kidney. A 2 mm nonobstructive calculus is seen in the mid posterior pole of the left kidney. There is a small hiatal hernia. Normal small intestine. There are multiple colonic diverticula consistent with diverticulosis. The appendix is visualized and appears normal. Status post abdominal stent grafting of the distal abdominal aorta. Residual dilatation of the distal abdominal aorta. Normal inferior vena cava. Normal retroperitoneum. Normal urinary bladder. Normal abdominal wall. There are diffuse degenerative changes of the visualized lumbar spine. Prior intraventricular screw reggie fixation of the lower lumbar spine as well as status post right hip replacement. This causes beam [place] artifact of the pelvis limiting the evaluation. CT/Abdomen/Pelvis without Cont IMPRESSION: Nonobstructive calculi in both kidneys more prominent on the right side. Electronically Signed: Saad Vaca MD at 13:58 EST ,
== END | disposition home or self-care (01) ==
LOC: CT 07:53
PROVIDERS: PCP Family Medicine; Referring Provider Urology; Visit Provider Urology
DX: N20.0 Calculus of kidney (principal)
CPT/HCPCS: 74176

== ENCOUNTER 2024-12-02 08:34 | Inpatient (IN) | payer MEDICARE, SELFPAY ==
[2024-12-02] VITALS (8 sets, daily range): BP systolic 135–187; BP diastolic 32–87; PULSE 78–87; RESP 16–18; TEMP 36.8–37.3; O2SAT 95–100; BMI 31.5
--- NOTE | 2024-12-02 08:59 | EDS_ITS ---
HPI History of Present Illness Chief Complaint: Nausea/Vomiting Narrative Narrative: Patient is a 79-year-old female with a past medical history of DVT, iliac bypass surgery, GERD, hypertension, hypercholesteremia who presented to the emergency department with a chief complaint of abdominal pain nausea vomiting. Patient states that for the past week she has had nausea vomiting and diarrhea. Patient states that she had surgery in November on her hip. States that she has not been taking any NSAIDs she has been using Tylenol for pain but despite this she states that she has had dark tarry stools over the past several days. Patient states that she has not any blood thinning medications despite having history of DVTs. Patient denies any sick contacts. Patient denies any bright red blood in her stool. [facility] Medical History Leg cramps Wears hearing aid Post-menopausal Kidney stones DVT (deep venous thrombosis) Restless legs Back pain Injury of head and neck Gastric reflux Former smoker Shortness of breath on exertion History of pain when walking History of stress test Hypertension GERD (gastroesophageal reflux disease) Former smoker High cholesterol Arthritis Osteoarthritis History of blood clots Home Medications ?Medication ?Instructions ?Recorded ?Last Taken ?Type lansoprazole 30 mg capsule,delayed 30 mg PO DAILY gerd 09/14/14 08/28/24 History release (Prevacid) rosuvastatin 40 mg tablet 40 mg PO QHS CHOLESTEROL 06/30/21 08/27/24 History albuterol sulfate 2.5 mg/3 mL 2.5 mg (3 mL) inhalation Q4H PRN 07/01/21 07/21/21 Rx (0.083 %) solution for nebulization SOB &/OR WHEEZING 14 days #1 mL potassium chloride 20 mEq 40 meq (2 x 20 mEq) PO DAILY 07/01/21 08/27/24 Rx tablet,extended release(part/cryst) potassium #0 tabs menthol 4 % topical gel (Biofreeze 1 applic topical DAILY PAIN 07/21/21 Unknown History (menthol)) duloxetine 30 mg capsule,delayed 30 mg PO QAM DEPRESSION #90 caps 06/04/24 08/27/24 Rx release duloxetine 60 mg capsule,delayed 60 mg PO QHS DEPRESSION #90 caps 06/04/24 08/27/24 Rx release pramipexole 1 mg tablet 0.5 mg PO BID RLS 06/04/24 08/28/24 History chlorthalidone 25 mg tablet 25 mg PO DAILY BP 08/20/24 08/27/24 History acetaminophen 500 mg tablet 500 mg PO Q6H #30 tabs 08/29/24 Unknown Rx meloxicam 15 mg tablet 15 mg PO LUNCH #30 tabs 08/29/24 Unknown Rx diltiazem HCl 180 mg capsule,24 180 mg PO DAILY 12/02/24 Unknown History hr,extended release Allergy/AdvReac Type Severity Reaction Status Date / Time meperidine HCl (From Demerol) Allergy Severe Swelling Verified 12/02/24 08:35 poison adelaide extract (Poison Allergy Rash Verified 12/02/24 08:35 Adelaide Extract) atorvastatin calcium (From AdvReac Upset Verified 12/02/24 08:35 Lipitor) Stomach cefaclor (From Ceclor) AdvReac PALPITATIONS, Verified 12/02/24 08:35 CHEST PRESSURE, SHORT OF BREATH doxycycline AdvReac Upset Verified 12/02/24 08:35 Stomach hydrocodone AdvReac Upset Verified 12/02/24 08:35 Stomach Family History Mother Arthritis CVA (cerebral vascular accident) Father Myocardial infarction Heart disease Hypertension High cholesterol Surgical History Hx of colonoscopy Hx of bilateral breast reduction surgery Hx of surgical procedure History of hip replacement History of toe surgery History of renal stent History of cataract surgery History of knee replacement History of extraction of renal calculus History of carotid endarterectomy History of [id number] bypass Social History Smoking Status: Former smoker Tobacco: How many years used: 40 Electronic Cigarette Use: not used how long ago did patient quit smokin years ago second hand exposure: No alcohol intake: current alcohol intake frequency: holidays/special occasions only substance use type: does not use alan/yarsanism: None seatbelt use: sometimes ROS ROS ED ROS Narrative Constitutional: Denies any fevers, chills, headaches, lightness, dizziness Eyes: Denies change in vision double vision blurry vision Cardiovascular: Denies chest pain palpitations Respiratory: Complains of shortness of breath denies wheezing Abdomen: Complains of abdominal pain nausea vomit diarrhea, denies any iron supplementation or Pepto-Bismol use : Denies any urinary symptoms Neurological: Denies numbness, weakness, tingling Musculoskeletal: Denies back pain Skin: Denies rashes or lesions EXAM Physical Exam Narrative Exam Narrative: General: Patient is lying in bed rest comfortably did not appear to be in acute distress Head: Atraumatic, normocephalic Eyes: PERRL bilaterally, EOMI bilaterally, no conjunctival injection noted Neck: Soft, supple, trachea midline Cardiovascular: Regular in rhythm no murmurs gallops rubs noted Respiratory: Clear to auscultation bilaterally no rales rhonchi or wheezes noted Abdomen: Soft, nondistended, tender to palpation diffusely throughout the abdomen no rebound or guarding on exam Extremities: +4/5 strength noted in the bilateral upper and lower extremities, radial pulses +2/4 in the bilateral per extremities Neurological: Patient following commands knew that she was at [facility] year is 2024 Skin: Warm, dry, intact Const Vital Signs: 12/02/24 08:35 12/02/24 10:34 12/02/24 12:00 Temperature 98.4 F Temperature Source Oral Pulse Rate 80 81 84 Respiratory Rate 16 16 16 Blood Pressure 166/59 H 146/62 H 141/77 H Blood Pressure Mean 94 90 98 Pulse Ox 100 98 99 Oxygen Delivery Method Room Air 12/02/24 16:00 12/02/24 16:54 12/02/24 16:55 Temperature 99.1 F 99.1 F Temperature Source Oral Pulse Rate 78 78 78 Respiratory Rate 16 16 16 Blood Pressure 135/87 H 148/87 H 148/87 H Blood Pressure Mean 103 107 107 Pulse Ox 98 95 95 Oxygen Delivery Method Room Air Room Air MDM MDM MDM Narrative Medical decision making narrative: Patient is a 79-year-old female who presented to the emergency department with a chief complaint of nausea vomiting diarrhea as well as some shortness of breath. On the differential diagnose includes but not limited to viral gastroenteritis, UTI, upper GI bleed, electrolyte abnormality, PE, ischemic colitis. Once workup is obtained reviewed she will be reevaluated. Patient be given IV fluids for hydration. Patient CBC was reviewed showed evidence leukocytosis of white blood count 12,000, hemoglobin is 11.4, plate count was 174. Patient sodium normal at 142, potassium was 3.2 she was given 40 mill equivalents of potassium supplementation here in the emergency department, creatinine normal at 0.72. Patient's total bilirubin was elevated 1.20, AST and ALT were 25 and 30 respectively. Patient's lipase was 22, urinalysis showed positive nitrites 500 leukocyte esterase 5-10 squamous epithelial cells indicating contaminated sample likely, white blood cells 25-50 with 3+ bacteria this was sent for culture as she does not have any urinary symptoms currently. Patient CTA chest abdomen pelvis was reviewed and no evidence of pulmonary embolism linear atelectasis and/or scarring at the lung bases. Patient's fecal occult test was positive tested negative for COVID flu and RSV. Reevaluation the patient she is feeling better however the approached me and let me know that there was concerned that she had a stricture near her common bile duct and her common bile duct was dilated and she had an MRI in the outpatient setting and she was scheduled to have a appointment in early December at [facility] For a special test. This was not noted in the CT report therefore added on a ultrasound of her gallbladder which was reviewed as well and showed a common bile duct measuring 6.3 mm there is sludge seen in the gallbladder lumen mild right hydronephrosis. I did review her MyChart records and noted that her previous common bile duct measured 1.3 mm on the MRI. Her total bilirubin was about the same at the time of that test as well. I called and discussed case with Dr. Sorensen who is recommending admit the patient and have MRI and he will see her in consult. I called and discussed case with hospitalist Dr. Ely who will except patient for admission patient and at bedside are agreeable this plan all question concerns answered bedside. Lab Data Labs: Laboratory Results - last 24 hr 12/02/24 12/02/24 09:35 10:20 WBC 12.0 H RBC 3.61 L Hgb 11.4 L Hct 33.9 L MCV 93.9 MCH 31.6 MCHC 33.6 RDW Std Deviation 45.5 H RDW Coeff of Davidson 13.3 Plt Count 174 MPV 9.8 Immature Gran % (Auto) 0.700 Neut % (Auto) 79.7 H Lymph % (Auto) 12.4 L Rogers % (Auto) 6.1 Eos % (Auto) 0.8 Baso % (Auto) 0.3 Absolute Neuts (auto) 9.6 H Absolute Lymphs (auto) 1.49 Nucleated RBC % 0 Sodium 142 Potassium 3.2 L Chloride 110 H Carbon Dioxide 28.0 Anion Gap 4 L BUN 13 Creatinine 0.79 Estim Creat Clear Calc 47.57 Est GFR (MDRD) Af Amer 90 Est GFR (MDRD) Non-Af 74 BUN/Creatinine Ratio 16.4 Glucose 119 H Calcium 9.2 Total Bilirubin 1.20 H AST 25 ALT 30 Alkaline Phosphatase 83 Total Protein 6.2 L Albumin 2.7 L Globulin 3.5 Albumin/Globulin Ratio 0.8 L Lipase 22 Urine Color Yellow Urine Clarity Sl. Cloudy Urine pH 6.0 Ur Specific Sims 1.015 Urine Protein 30 H Urine Glucose (UA) Normal Urine Ketones 5 H Urine Occult Blood 25 H Urine Nitrite Positive H Urine Bilirubin 1 H Urine Urobilinogen 8 H Ur Leukocyte Esterase 500 H Urine RBC 0 SEEN Urine WBC 25-50 SEEN Ur Squamous Epith Cells 5-10 SEEN Urine Bacteria 3+ Urine Mucus 0 SEEN Radiography Diagnostic Testing: Clinical Impression(s) from Imaging Studies Chest/Abdomen/Pelvis CTA 12/02/24 09:00 IMPRESSION: No evidence of pulmonary embolism. Linear atelectasis and/or scarring at the lung bases. Electronically Signed: Saad Vaca MD at 11:35 EST , Gallbladder Ultrasound 12/02/24 13:12 IMPRESSION: Sludge is seen in the gallbladder lumen. Mild right hydronephrosis. Electronically Signed: Saad Vaca MD at 14:38 EST , Discharge Plan Triage Chief Complaint: Nausea/Vomiting ED Provider: Tony Nieves Dx/Rx/DC Orders Clinical Impression: Abdominal pain, Nausea & vomiting, Common bile duct dilatation Prescriptions: No Action duloxetine 30 mg capsule,delayed release(DR/EC) 30 mg PO QAM Qty: 90 3RF duloxetine 60 mg capsule,delayed release(DR/EC) 60 mg PO QHS Qty: 90 2RF pramipexole 1 mg tablet 0.5 mg PO BID lansoprazole [Prevacid] 30 MG capsule 30 mg PO DAILY rosuvastatin 40 mg tablet 40 mg PO QHS albuterol sulfate 2.5 mg /3 mL (0.083 %) Solution For Nebulization 2.5 mg inhalation Q4H PRN (Reason: SOB &/OR WHEEZING) 14 Days Qty: 1 0RF potassium chloride 20 MEQ tablet 40 meq PO DAILY Qty: 0 0RF Biofreeze (menthol) 4 % Gel 1 applic TOPICAL DAILY chlorthalidone 25 mg tablet 25 mg PO DAILY acetaminophen 500 mg Tablet 500 mg PO Q6H Qty: 30 0RF meloxicam 15 mg Tablet 15 mg PO LUNCH Qty: 30 0RF diltiazem HCl 180 mg capsule,extended release 24hr 180 mg PO DAILY Primary Care Provider: Marcelo Borges Referrals: Marcelo Borges MD [Primary Care Provider] - Print Language: Emirati
--- NOTE | 2024-12-02 09:00 | CT_ITS ---
STUDY: CTA CHEST REASON FOR EXAM: Female, 79 years old. Sob, recent surgery RADIATION DOSAGE (If Supplied By Facility): CTDIvol = ( 10.87 ) mGy, DLP = ( 798.86 ) mGycm TECHNIQUE: The examination was performed with the intravenous administration of IV 100mL [id number]-370. Post-processing of the angiographic images was performed, with multiplanar reformation and 3D reconstruction. Individualized dose optimization techniques were used for this CT. COMPARISON: Comparison is made with prior study dated July 21, 2021. FINDINGS: Normal enhancement of the main pulmonary artery and right and left pulmonary arteries. Normal enhancement of the bilateral peripheral pulmonary arteries. There is no demonstrated pulmonary embolism. There is atherosclerotic calcification of the aortic arch with tortuosity. There is no demonstrated aortic dissection. Normal heart and pericardium. Normal mediastinum. Normal hilar regions. Normal visualized trachea and bronchi. The lungs are well expanded. Mild increased markings at the lung bases suggestive of underlying atelectasis and/or scarring. Normal pleura. Normal chest wall structures. There are degenerative changes of thoracic spine. Abdominal aortic aneurysm with stent in the left common iliac artery. The distal abdominal aortic aneurysm is a transverse dimension of 2.3 cm. Mild distention of the gallbladder. Nonobstructive 6.2 mm calculus in the lower pole calyx of the left kidney. Bilateral hip replacement. Prior fusion of the lower lumbar spine. CT/CTA Chst, Abd, Pel W and/or WO IMPRESSION: No evidence of pulmonary embolism. Linear atelectasis and/or scarring at the lung bases. Electronically Signed: Saad Vaca MD at 11:35 EST ,
[2024-12-02 09:39] LABS: Color, Urine Yellow (Yellow); Glucose, Dipstick Normal (Normal); Ketone-Dipstick 5 mg/dl (Negative); Leukocyte Esterase-Dipstick 500 /ul (Negative); Mucous, Urine 0 SEEN /hpf (<or=2+); Nitrite-Dipstick Positive (Negative); Occult Blood-Urine 25 /ul (Negative); Protein-Dipstick 30 mg/dl (Negative); Red Blood Cells-Urine 0 SEEN /hpf (0-5); Specific Gravity, Urine 1.015 (1.002-1.030); Urine Bilirubin Dipstick 1 mg/dL (Negative); Urine Clarity Sl. Cloudy (Clear); Urine Urobilinogen 8 mg/dl (Normal)
[2024-12-02 09:50] LABS: Bacteria 3+ /hpf (None Seen); Squamous Epithelial Cells - UA 5-10 SEEN /hpf (5-10); White Blood Cells 25-50 SEEN /hpf (0-5)
[2024-12-02] MEDS: Pantoprazole Sodium 40 MG in 0.9% Normal Saline (100mL MB+) 100 ML 330 MG IV ×2 (10:44→22:35)
[2024-12-02] MEDS: 0.9% Normal Saline (1000mL) 1,000 ML 999 ML IV (10:44)
--- NOTE | 2024-12-02 10:46 | NURSING ---
10cm PowerGlide initiated via ultrasound for IV access by OSMEL Morales.
[2024-12-02 10:58] LABS: Absolute Lymphocyte Count 1.49 X10^3/uL (0.83-4.51); Absolute Neutrophil Count 9.6 X10^3/uL (2.0-7.7); Basophil# 0.04 X10^3/uL; Basophil% 0.3 % (0-1); Eosinophil# 0.09 X10^3/uL; Eosinophils% 0.8 % (0-5); Hematocrit 33.9 % (37-47); Hemoglobin 11.4 g/dL (12.0-15.0); Lymphocyte # 1.49 X10^3/ul (0.83-4.51); Lymphocyte % 12.4 % (19-41); Mean Corp Hgb Conc 33.6 g/dL (32-36); Mean Corpuscular Hgb 31.6 pg (27.0-32.0); Mean Corpuscular Volume 93.9 fL (81-99); Mean Platelet Vol. 9.8 fl (6.2-12.0); Monocyte# 0.73 X10^3/uL; Monocyte% 6.1 % (0-10); NRBC Flagged by Analyzer 0 % (0-5); Neutrophil # 9.55 X10^3/uL (2.7-7.7); Neutrophil % 79.7 % (47-70); Platelet Count 174 K/mm3 (150-450); RBC Distribution Width CV 13.3 % (11.6-14.6); RBC Distribution Width SD 45.5 fl (35.1-43.9); Red Blood Count 3.61 M/mm3 (4.2-5.4)
[2024-12-02 11:13] LABS: ALB/GLOB Ratio 0.8 RATIO (0.9-2.4); AST(SGOT) 25 U/L (15-37); Alanine Aminotransfer ALT/SGPT 30 U/L (13-56); Albumin, Serum 2.7 g/dL (3.2-5.0); Alkaline Phosphatase 83 U/L (45-117); Anion Gap 4 (5-15); BUN 13 mg/dL (7-18); BUN/Creat Ratio 16.4 RATIO (10-20); Calcium,Total 9.2 mg/dL (8.5-10.1); Chloride 110 mmol/L (98-107); Creatinine, Serum 0.79 mg/dL (0.55-1.02); EST Glomerular Filtration Rate 74 mL/min (>60); Est Glom Filt Rate - Afr Amer 90 mL/min (>60); Estimated Creatinine Clearance 47.57 ml/min; Globulin 3.5 g/dL (2.2-4.2); Glucose 119 mg/dL (74-106); Lipase 22 U/L (13-75); Potassium 3.2 mmol/L (3.5-5.1); Protein, Total 6.2 g/dL (6.4-8.2); Sodium Level 142 mmol/L (136-145)
--- NOTE | 2024-12-02 13:12 | US_ITS ---
STUDY: ABDOMINAL ULTRASOUND - RIGHT UPPER QUADRANT REASON FOR VISIT: Female, 79 years old hx of alex lated common bile duct TECHNIQUE: Ultrasound evaluation of the right upper quadrant was performed with real-time and static avila-scale imaging. TECHNICAL QUALITY: Adequate. COMPARISON: Comparison is made with prior CT scan abdomen and pelvis dated November 20, 2024. FINDINGS: Liver: The liver measures 14.1 cm. There is normal echogenicity of the liver. The bile ducts are within normal limits. There is hepatic color flow. The direction of portal flow is hepatopetal. There is no demonstrated mass lesion. Gallbladder: Normal distended gallbladder. The gallbladder wall measures 2.1 mm. There is a negative sonographic Crenshaw''s sign. There is no pericholecystic fluid. There are no gallstones. Sludge is seen in the gallbladder lumen. Common Bile Duct (C.B.D.): The common bile duct measures 6.3 mm. Pancreas: Normal size of the head, body and tail of the pancreas. There is normal echogenicity of the pancreas. There is no demonstrated pancreatic mass or cyst. Right Kidney: Normal size of the right kidney. The right kidney measures 10.3 cm x 4.3 cm x 4.1 cm. Normal renal cortex. The right cortex measures 1 cm. There is no demonstrated renal mass or cyst. There is mild hydronephrosis of the right kidney. US/Gallbladder IMPRESSION: Sludge is seen in the gallbladder lumen. Mild right hydronephrosis. Electronically Signed: Saad Vaca MD at 14:38 EST ,
[2024-12-02] MEDS: Potassium Chloride Oral Soln 20 MEQ/15 ML UDC 40 MEQ PO (13:18)
--- NOTE | 2024-12-02 16:52 | HP.PCM.HOS_ITS ---
HPI - General General Date of Admission: 12/02/24 Date of Service: 12/02/24 Chief Complaint: abd pain HPI Narrative 79-year-old female with history of DVT not on anticoagulation, GERD, iliac bypass surgery, hypertension presented [facility] ED 12/02/2024 with chief complaint of abdominal pain and nausea for 1 week and over the past several days has had some dark tarry stools. Denies being on any blood thinning medications or taking NSAIDs. No bright red blood in her stool. In the ED patient vitally stable, did have positive occult blood and hemoglobin 11.4, several months ago was 12.1. White blood cell count 12. CMP revealed total bilirubin of 1.2 potassium 3.2 but otherwise fairly benign. UA with nitrate, leuk esterase, white blood cells, and bacteria. CTA chest/abdomen/pelvis with no PE, some mild distention of gallbladder and linear atelectasis at lung bases. Gallbladder ultrasound obtained which showed some sludge seen in gallbladder lumen. GI contacted due to concerns for possible gallbladder pathology and recommended MRCP. Hospitalist contacted for admission. Patient evaluated at bedside. She reports last Monday she had a hip replacement with Dr. Steve Delarosa and had been doing well but started feeling kind of off a few days later and then developed bilateral lower quadrant abdominal pain gradually over the course of the day on Monday with nausea and dry heaves 4-5 times a day and had a dark tarry stool but no overt diarrhea. Denies fever or sick contacts but has been feeling somewhat cold though she is not sure if that is due to the weather. Has been feeling somewhat weak when she gets up and moves around will feel like she has increased work of breathing. Abdominal pain comes and goes and is in the lower quadrants but sometimes will radiate up. Not necessarily having dysuria or urinary frequency but she does report recurrent UTIs and she usually has suprapubic/lower quadrant abdominal discomfort has remained symptoms. Also does have known kidney stones and follows with Dr. Renner. Of note while in ED patient had a bowel movement and she reports it was light in color with no dark or tarry. Feeling much better after her symptomatic care in the ED [facility] Medical History Leg cramps Wears hearing aid Post-menopausal Kidney stones DVT (deep venous thrombosis) Restless legs Back pain Injury of head and neck Gastric reflux Former smoker Shortness of breath on exertion History of pain when walking History of stress test Hypertension GERD (gastroesophageal reflux disease) Former smoker High cholesterol Arthritis Osteoarthritis History of blood clots Home Medications ?Medication ?Instructions ?Recorded ?Last Taken ?Type lansoprazole 30 mg capsule,delayed 30 mg PO DAILY gerd 09/14/14 08/28/24 History release (Prevacid) rosuvastatin 40 mg tablet 40 mg PO QHS CHOLESTEROL 06/30/21 08/27/24 History albuterol sulfate 2.5 mg/3 mL 2.5 mg (3 mL) inhalation Q4H PRN 07/01/21 07/21/21 Rx (0.083 %) solution for nebulization SOB &/OR WHEEZING 14 days #1 mL potassium chloride 20 mEq 40 meq (2 x 20 mEq) PO DAILY 07/01/21 08/27/24 Rx tablet,extended release(part/cryst) potassium #0 tabs menthol 4 % topical gel (Biofreeze 1 applic topical DAILY PAIN 07/21/21 Unknown History (menthol)) duloxetine 30 mg capsule,delayed 30 mg PO QAM DEPRESSION #90 caps 06/04/24 08/27/24 Rx release duloxetine 60 mg capsule,delayed 60 mg PO QHS DEPRESSION #90 caps 06/04/24 08/27/24 Rx release pramipexole 1 mg tablet 0.5 mg PO BID RLS 06/04/24 08/28/24 History chlorthalidone 25 mg tablet 25 mg PO DAILY BP 08/20/24 08/27/24 History acetaminophen 500 mg tablet 500 mg PO Q6H #30 tabs 08/29/24 Unknown Rx meloxicam 15 mg tablet 15 mg PO LUNCH #30 tabs 08/29/24 Unknown Rx diltiazem HCl 180 mg capsule,24 180 mg PO DAILY 12/02/24 Unknown History hr,extended release Allergy/AdvReac Type Severity Reaction Status Date / Time meperidine HCl (From Demerol) Allergy Severe Swelling Verified 12/02/24 08:35 poison adelaide extract (Poison Allergy Rash Verified 12/02/24 08:35 [place] Extract) atorvastatin calcium (From AdvReac Upset Verified 12/02/24 08:35 Lipitor) Stomach cefaclor (From Ceclor) AdvReac PALPITATIONS, Verified 12/02/24 08:35 CHEST PRESSURE, SHORT OF BREATH doxycycline AdvReac Upset Verified 12/02/24 08:35 Stomach hydrocodone AdvReac Upset Verified 12/02/24 08:35 Stomach Family History Mother Arthritis CVA (cerebral vascular accident) Father Myocardial infarction Heart disease Hypertension High cholesterol Surgical History Hx of colonoscopy Hx of bilateral breast reduction surgery Hx of surgical procedure History of hip replacement History of toe surgery History of renal stent History of cataract surgery History of knee replacement History of extraction of renal calculus History of carotid endarterectomy History of njshf-ycakp-evmprsp bypass Social History Smoking Status: Former smoker Tobacco: How many years used: 40 Electronic Cigarette Use: not used how long ago did patient quit smokin years ago second hand exposure: No alcohol intake: current alcohol intake frequency: holidays/special occasions only substance use type: does not use alan/christian: None seatbelt use: sometimes ROS ROS Narrative General: Denies fever, has felt somewhat cold HENT: Denies headache, denies stuffy nose, denies sore throat EYES: Denies changes in vision Resp: Denies cough, little bit of increased work of breathing when she has been getting up and moving around but none at rest Cardiac: Denies chest pain GI: Lower quadrant abdominal pain that comes and goes, nausea and dry heaves, had some dark stool but no overt diarrhea prior to the ED : Denies any overt changes in urination Extremity: Denies swelling MSK: Denies weakness Neuro: Denies any numbness/tingling Heme: Denies any bleeding or bruising Skin: Denies rashes, denies any problems with her surgical site Psychiatric: No complaints voiced Vital Signs Vital Signs Vital Signs: 12/02/24 08:35 12/02/24 10:34 12/02/24 12:00 Temperature 98.4 F Temperature Source Oral Pulse Rate 80 81 84 Respiratory Rate 16 16 16 Blood Pressure 166/59 H 146/62 H 141/77 H Blood Pressure Mean 94 90 98 Pulse Ox 100 98 99 Oxygen Delivery Method Room Air Weight Weight: 63.866 kg Body Mass Index (BMI) 31.5 Physical Exam Narrative General: Alert, oriented, no apparent distress HEENT: Atraumatic, normocephalic Eyes: Anicteric, normal conjunctiva, extraocular movements grossly intact Neck: Supple Respiratory: Clear to auscultation bilaterally, normal respiratory effort Cardiovascular: Regular rate and rhythm GI: Soft, nontender, nondistended Extremities: No edema Musculoskeletal: Moving all extremities Neuro: No overt focal neurological deficits Skin: No rashes appreciated Psych: Cooperative Results Lab / Micro Data 12/02/24 10:20 12/02/24 10:20 Labs: Laboratory Results - last 24 hr 12/02/24 09:35: Urine Color Yellow, Urine Clarity Sl. Cloudy, Urine pH 6.0, Ur Specific [place] 1.015, Urine Protein 30 H, Urine Glucose (UA) Normal, Urine Ketones 5 H, Urine Occult Blood 25 H, Urine Nitrite Positive H, Urine Bilirubin 1 H, Urine Urobilinogen 8 H, Ur Leukocyte Esterase 500 H, Urine RBC 0 SEEN, Urine WBC 25-50 SEEN, Ur Squamous Epith Cells 5-10 SEEN, Urine Bacteria 3+, Urine Mucus 0 SEEN 12/02/24 10:20: WBC 12.0 H, RBC 3.61 L, Hgb 11.4 L, Hct 33.9 L, MCV 93.9, MCH 31.6, MCHC 33.6, RDW Std Deviation 45.5 H, RDW Coeff of Davidson 13.3, Plt Count 174, MPV 9.8, Immature Gran % (Auto) 0.700, Neut % (Auto) 79.7 H, Lymph % (Auto) 12.4 L, [place] % (Auto) 6.1, Eos % (Auto) 0.8, Baso % (Auto) 0.3, Absolute Neuts (auto) 9.6 H, Absolute Lymphs (auto) 1.49, Nucleated RBC % 0, Sodium 142, Potassium 3.2 L, Chloride 110 H, Carbon Dioxide 28.0, Anion Gap 4 L, BUN 13, Creatinine 0.79, Estim Creat Clear Calc 47.57, Est GFR (MDRD) Af Amer 90, Est GFR (MDRD) Non-Af 74, BUN/Creatinine Ratio 16.4, Glucose 119 H, Calcium 9.2, Total Bilirubin 1.20 H, AST 25, ALT 30, Alkaline Phosphatase 83, Total Protein 6.2 L, Albumin 2.7 L, Globulin 3.5, Albumin/Globulin Ratio 0.8 L, Lipase 22 Micro: Microbiology 12/02/24 09:30 Mucosa - Nose SARS-CoV-2, Influenza & RSV (PCR) - Final 12/02/24 09:30 Stool Stool Occult Blood (SACHIN) - Final Occult Blood Positive Imaging Radiology Impression Chest/Abdomen/Pelvis CTA 12/02/24 09:00 IMPRESSION: No evidence of pulmonary embolism. Linear atelectasis and/or scarring at the lung bases. Electronically Signed: Saad Vaca MD at 11:35 EST , Gallbladder Ultrasound 12/02/24 13:12 IMPRESSION: Sludge is seen in the gallbladder lumen. Mild right hydronephrosis. Electronically Signed: Saad Vaca MD at 14:38 EST , Assessment & Plan Assessment/Plan (1) Abdominal pain: PLAN: Plan # Nausea and abdominal pain -CT chest/abdomen/pelvis and gallbladder ultrasound with gallbladder sludge and some dilation of common bile duct compared to previous -GI recommended MRCP -Order MRCP and GI consult -Will check stool studies -Viral panel -IV fluids and supportive care # Suspect UTI -If the above negative, it is possible that UTI is a large cause or contributor of symptoms given her recurrent UTIs with her symptoms usually being suprapubic discomfort -UA suggestive of UTI -Will obtain urine culture and treat empirically while awaiting culture results -Given allergy to cefaclor will treat with Cipro for now # FOBT positive -Patient reports she had a normal stool while sitting in the ED -Will repeat in the a.m. or sooner if she has any further concerns -If hemoglobin remains stable no further overt bloody stools may need outpatient endoscopy -Will continue PPI #GERD -Continue PPI #Hypertension -Will hold chlorthalidone today given patient needing IV fluids and also slightly hypokalemic -Will continue diltiazem with holding parameters #Depression/anxiety -Continue home medications #Hypokalemia -Replace -Repeat in the AM # RLS -Continue home pramipexole #DVT ppx: SCDs Delia Ely MD Charges/Coding Visit Charges Inpatient E&M: 33062 Init Hosp L2
--- NOTE | 2024-12-02 18:15 | MRI_ITS ---
STUDY: MRI ABDOMEN WITHOUT CONTRAST REASON FOR EXAM: Female, 79 years old. ?gallbladder pathology, inc CBD, GI reqstd stat -- recent back and hip surgery TECHNIQUE: Standardized fat and water weighted pulse sequences were obtained in all 3 orthogonal planes. MRCP sequences with 3-D reconstructions performed. COMPARISON: CT November 20, 2024. Ultrasound December 02, 2024. FINDINGS: The visualized lung bases are unremarkable. The visualized portions of the heart are within normal limits. Normal liver. Normal gallbladder. The common duct is dilated measuring 1.0 cm. Normal spleen. Normal pancreas. Normal bilateral adrenal glands. There is mild hydronephrosis of the right kidney. Normal left kidney. Normal visualized stomach. Normal small intestine. Normal colon. There is non-visualization of the appendix. There is postoperative changes are abdominal aorta. Normal inferior vena cava. Normal retroperitoneum. Normal abdominal wall. There is thoracic scoliosis and degenerative change of the spine. There is postoperative change of the lumbar spine with hardware and associated artifact. There are bilateral hip replacements. MRI/MRCP Abdomen without Contrast IMPRESSION: Dilated common bile duct. No stones are identified. Mild right hydronephrosis. Electronically Signed: Connor Russ MD at 20:55 EST ,
--- NOTE | 2024-12-02 18:18 | PCM.HOSP.N ---
Hospitalist Note Initially intended to avoid Rocephin given patient's listed allergy to cefaclor however Cipro has interaction with her Cymbalta, looking back patient has tolerated cefazolin in the past so will DC Carole and trial Rocephin
[2024-12-02] MEDS: Ceftriaxone 1 GM/50 ML BAG IV (21:26)
[2024-12-02] MEDS: 0.9% Normal Saline (1000mL) 1,000 ML 50 ML IV (21:26)
[2024-12-02] MEDS: MELATONIN 3 MG TABLET PO (21:26)
[2024-12-02] MEDS: Ondansetron 4 MG/2 ML Vial IV (21:26)
[2024-12-02] MEDS: DULoxetine Hcl 60 MG Capsule PO (21:26)
[2024-12-02] MEDS: Pramipexole Di-HCl 0.5 MG Tablet PO (21:27)
[2024-12-02] MEDS: ROSUVASTATIN CALCIUM 40 MG TABLET PO (22:34)
[2024-12-02] MEDS: dilTIAZem CD 180 MG Capsule PO (22:34)
[2024-12-03 03:07] VITALS: BP 178/59; PULSE 84; RESP 18; TEMP 36.6; O2SAT 96
[2024-12-03 03:48] VITALS: BP 178/59; PULSE 84
[2024-12-03] MEDS: hydrALAZINE 20 MG/ML Vial IV (03:48)
[2024-12-03 07:03] LABS: Absolute Neutrophil Count 8.4 X10^3/uL (2.0-7.7); Basophil# 0.03 X10^3/uL; Basophil% 0.3 % (0-1); Eosinophil# 0.18 X10^3/uL; Eosinophils% 1.6 % (0-5); Hematocrit 33.9 % (37-47); Hemoglobin 11.2 g/dL (12.0-15.0); Lymphocyte % 13.6 % (19-41); Mean Corpuscular Hgb 31.1 pg (27.0-32.0); Mean Corpuscular Volume 94.2 fL (81-99); Mean Platelet Vol. 10.1 fl (6.2-12.0); Monocyte# 0.79 X10^3/uL; Monocyte% 7.2 % (0-10); NRBC Flagged by Analyzer 0 % (0-5); Neutrophil # 8.42 X10^3/uL (2.7-7.7); Neutrophil % 76.2 % (47-70); Platelet Count 177 K/mm3 (150-450); RBC Distribution Width CV 13.7 % (11.6-14.6); RBC Distribution Width SD 46.6 fl (35.1-43.9)
--- NOTE | 2024-12-03 07:17 | PCM.PN.HOSP ---
Reason for Visit Reason for Visit: Diagnoses Unspecified abdominal pain (12/02/24) Objective Data Objective Data Vital Signs: Vital Signs Temp Pulse Resp BP Pulse Ox O2 Del Method 97.8 F 84 18 178/59 H 96 Room Air 12/03/24 03:07 12/03/24 03:48 12/03/24 03:07 12/03/24 03:48 12/03/24 03:07 12/03/24 03:07 Oxygen Delivery Method Room Air Weight: 140 lb 12.8 oz Body Mass Index (BMI) 31.5 Intake & Output: Intake and Output for Last 24 Hours 12/01/24 12/02/24 12/03/24 23:59 23:59 23:59 Intake Total 1270 / 1270 600 / 600 Output Total 200 / 200 Balance 1270 / 1270 400 / 400 Lab / Micro Data 12/03/24 06:30 12/03/24 06:30 Labs: Laboratory Results - last 24 hr 12/02/24 09:35: Urine Color Yellow, Urine Clarity Sl. Cloudy, Urine pH 6.0, Ur Specific [place] 1.015, Urine Protein 30 H, Urine Glucose (UA) Normal, Urine Ketones 5 H, Urine Occult Blood 25 H, Urine Nitrite Positive H, Urine Bilirubin 1 H, Urine Urobilinogen 8 H, Ur Leukocyte Esterase 500 H, Urine RBC 0 SEEN, Urine WBC 25-50 SEEN, Ur Squamous Epith Cells 5-10 SEEN, Urine Bacteria 3+, Urine Mucus 0 SEEN 12/02/24 10:20: WBC 12.0 H, RBC 3.61 L, Hgb 11.4 L, Hct 33.9 L, MCV 93.9, MCH 31.6, MCHC 33.6, RDW Std Deviation 45.5 H, RDW Coeff of [place] 13.3, Plt Count 174, MPV 9.8, Immature Gran % (Auto) 0.700, Neut % (Auto) 79.7 H, Lymph % (Auto) 12.4 L, [place] % (Auto) 6.1, Eos % (Auto) 0.8, Baso % (Auto) 0.3, Absolute Neuts (auto) 9.6 H, Absolute Lymphs (auto) 1.49, Nucleated RBC % 0, Sodium 142, Potassium 3.2 L, Chloride 110 H, Carbon Dioxide 28.0, Anion Gap 4 L, BUN 13, Creatinine 0.79, Estim Creat Clear Calc 47.57, Est GFR (MDRD) Af Amer 90, Est GFR (MDRD) Non-Af 74, BUN/Creatinine Ratio 16.4, Glucose 119 H, Calcium 9.2, Total Bilirubin 1.20 H, AST 25, ALT 30, Alkaline Phosphatase 83, Total Protein 6.2 L, Albumin 2.7 L, Globulin 3.5, Albumin/Globulin Ratio 0.8 L, Lipase 22 12/03/24 06:30: WBC 11.0, RBC 3.60 L, Hgb 11.2 L, Hct 33.9 L, MCV 94.2, MCH 31.1, MCHC 33.0, RDW Std Deviation 46.6 H, RDW Coeff of [place] 13.7, Plt Count 177, MPV 10.1, Immature Gran % (Auto) 1.100 H, Neut % (Auto) 76.2 H, Lymph % (Auto) 13.6 L, [place] % (Auto) 7.2, Eos % (Auto) 1.6, Baso % (Auto) 0.3, Absolute Neuts (auto) 8.4 H, Absolute Lymphs (auto) 1.50, Nucleated RBC % 0 Micro: Microbiology 12/02/24 20:06 Mucosa - Nasopharyngeal Respiratory Panel (PCR) - Final 12/02/24 09:30 Mucosa - Nose SARS-CoV-2, Influenza & RSV (PCR) - Final 12/02/24 09:30 Stool Stool Occult Blood (SACHIN) - Final Occult Blood Positive Radiography Diagnostic Testing: Radiology Impression Chest/Abdomen/Pelvis CTA 12/02/24 09:00 IMPRESSION: No evidence of pulmonary embolism. Linear atelectasis and/or scarring at the lung bases. Electronically Signed: Saad Vaca MD at 11:35 EST , Gallbladder Ultrasound 12/02/24 13:12 IMPRESSION: Sludge is seen in the gallbladder lumen. Mild right hydronephrosis. Electronically Signed: Saad Vaca MD at 14:38 EST , MRCP 12/02/24 18:15 IMPRESSION: Dilated common bile duct. No stones are identified. Mild right hydronephrosis. Electronically Signed: Connor Russ MD at 20:55 EST , Physical Exam Narrative Seen and examined. Discussed with the patient's present in the room. Abdominal pain intermittent in the lower quadrant and sometimes radiates up. Denies dysuria or increased frequency. She had back surgery about couple months ago and then left hip surgery a week ago Nausea and vomiting had subsided. She was also having loose bowel movement, liquid brownish in color. Physical exam General: Alert, Oriented x3, Cooperative HEENT: Atraumatic, PERRLA, EOMI, Normocephalic Oral: Oral mucosa dry. No Gingival or Mucosal Lesions/ Ulcerations Neck: Supple, No JVD, Negative Carotid Bruits Chest wall/Lungs: Air entry diminished in bilateral lung bases. No crepitation/rhonchi Cardiovascular: Regular rate, Regular Rhythm, Normal S1, Normal S2, No M/G/R Abdomen: Epigastric and umbilical region tenderness. No RUQ tenderness. Bowel Sounds Present, Soft : No dysuria. No renal angle tenderness. No suprapubic tenderness. Extremities: No edema, Capillary Refill Less than 3 Seconds Skin: No rashes, No breakdown Musculoskeletal: No Tenderness to Palpation of Joints or Extremities Neurological: Cranial nerves II-XII grossly intact, DTR 2+/4. No acute focal neurological deficit. Psych/Mental Status: Flat affect. Assessment & Plan Assessment/Plan (1) Abdominal pain: PLAN: Plan 79-year-old female was admitted with abdominal pain, nausea and vomiting for the past 1 week. Complain of watery, brownish stool over the past several days. She is not on anticoagulant agent or taking NSAIDs. No bright red blood. # Nausea and abdominal pain possibly induced by NSAIDs: Patient was taking ibuprofen about 2-4 tablets for last 1 week after hip surgery. She was advised ibuprofen 400 mg every 8 hourly. -CT chest/abdomen/pelvis and gallbladder ultrasound with gallbladder sludge, GB wall 2.1 mm. Negative Crenshaw sign and no features of leukocytosis. CBD 6.3 mm. MRCP was further done which shows normal liver, GB, pancreas and spleen. CBD dilated measuring 1 cm. Patient does not have right upper quadrant abdominal pain or referred pain to shoulder or shoulder. I feel it most likely she has gastritis/PUD or erosive esophagitis. Discussed with preschool teacher's assistant. Plan for EGD tomorrow. Enteric pathogen is ordered but patient did not had bowel movement for 6 weeks. Triple PCR for SARS-CoV-2, flu and RSV are negative and respiratory panel negative. # Abnormal UA: Patient denies burning micturition. UA shows positive LE, nitrite and WBC. On empiric ceftriaxone. 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 Had normal stool in the ED. Stool for occult blood positive. H&H 11.2/33.9%. Continue PPI IV twice daily #GERD -Continue PPI #Hypertension: Hold chlorthalidone and diltiazem continued with holding parameters. #Depression/anxiety -Continue home medications #Hypokalemia Repeat K3.3. Potassium replaced. # RLS -Continue home pramipexole #DVT ppx: SCDs Charges/Coding Visit Charges Inpatient E&M: 78325 Subs Hosp L2
[2024-12-03 07:35] LABS: ALB/GLOB Ratio 0.8 RATIO (0.9-2.4); AST(SGOT) 28 U/L (15-37); Alanine Aminotransfer ALT/SGPT 21 U/L (13-56); Albumin, Serum 2.5 g/dL (3.2-5.0); Alkaline Phosphatase 87 U/L (45-117); Anion Gap 4 (5-15); BUN 12 mg/dL (7-18); BUN/Creat Ratio 17.3 RATIO (10-20); Calcium,Total 8.8 mg/dL (8.5-10.1); Chloride 113 mmol/L (98-107); EST Glomerular Filtration Rate 86 mL/min (>60); Est Glom Filt Rate - Afr Amer 104 mL/min (>60); Estimated Creatinine Clearance 47.57 ml/min; Globulin 3.3 g/dL (2.2-4.2); Glucose 110 mg/dL (74-106); Potassium 3.3 mmol/L (3.5-5.1); Protein, Total 5.8 g/dL (6.4-8.2); Sodium Level 143 mmol/L (136-145)
[2024-12-03 07:56] VITALS: BP 141/55; PULSE 88; RESP 20; TEMP 36.5; O2SAT 99
[2024-12-03] MEDS: dilTIAZem CD 180 MG Capsule PO (08:00)
[2024-12-03] MEDS: DULoxetine Hcl 30 MG Capsule PO (08:00)
[2024-12-03] MEDS: Pramipexole Di-HCl 0.5 MG Tablet PO ×2 (08:00→20:13)
[2024-12-03] MEDS: Pantoprazole Sodium 40 MG in 0.9% Normal Saline (100mL MB+) 100 ML 330 MG IV ×2 (09:14→20:13)
[2024-12-03] MEDS: Ceftriaxone 1 GM/50 ML BAG IV (09:40)
[2024-12-03] MEDS: Ondansetron 4 MG/2 ML Vial IV (10:18)
--- NOTE | 2024-12-03 11:23 | CASEMGMT ---
Social Work- Pt has directives on chart naming Burton as primary agent and Maureen and Gabbi as alternate agents. JORDYN Nolan
[2024-12-03] MEDS: Mag Hydrox/Al Hydrox/Simeth 30 ML UDC 15 ML PO (11:28)
--- NOTE | 2024-12-03 12:00 | CASEMGMT ---
OSMEL ANGEL Assessment Face to Face with patient for initial transition planning/care coordination assessment. OSMEL ANGEL introduced self and role at [facility], pt voices understanding. Pt is A&Ox4 and is resting comfortably in bed and is calm. Pt and daughter at bedside. Care providers, pharmacy, and demographics verified. 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 Pt reports that the pt was previously active with [facility] for OP PT Pt?s goal: Home with HHC Plan: Home with C. Pt, pt , and pt daughter state that they would like HHC set up rather than attend OP Tx. Pt denies wanting to review a list of local in-network [facility] agencies and states that she would prefer to go through [facility]. TC to Claudette at [facility] and referral made for SN,PT, and OT. Awaiting return response. Pt states that she feels safe with this plan and denies further questions or concerns at this time. MS3 OSMEL ANGEL updated. Steve Delarosa RN, CM
--- NOTE | 2024-12-03 13:26 | CASEMGMT ---
RN CM called and notified this RN CM patient was accepted with [facility].
[2024-12-03 14:53] VITALS: BP 149/39; PULSE 70; RESP 14; TEMP 37.2; O2SAT 100
[2024-12-03] MEDS: Potassium Chloride Oral Tablet 20 MEQ 40 MEQ PO ×2 (17:11→20:13)
--- NOTE | 2024-12-03 17:49 | CON.PCM.GI_ITS ---
HPI Consult Data Date of Consult: 12/03/24 HPI Narrative Reason for Consultation: Abdominal pain HPI Narrative: TREY CALVERT, is a 79-year-old female with history of DVT not on anticoagulation, GERD, iliac bypass surgery, hypertension presented [facility] ED 12/02/2024 with chief complaint of abdominal pain and nausea for 1 week and over the past several days has had some dark tarry stools. She denies being on any blood thinning medications or taking NSAIDs. No bright red blood in her stool. In the ED patient vitally stable, did have positive occult blood and hemoglobin 11.4, several months ago was 12.1. White blood cell count 12. CMP revealed total bilirubin of 1.2 potassium 3.2 but otherwise fairly benign. UA with nitrate, leuk esterase, white blood cells, and bacteria. CTA chest/abdomen/pelvis with no PE, some mild distention of gallbladder and linear atelectasis at lung bases. Gallbladder ultrasound obtained which showed some sludge seen in gallbladder lumen. I recommended MRCP. She reports last Monday she had a hip replacement with Dr. Steve Delarosa and had been doing well but started feeling kind of off a few days later and then developed bilateral lower quadrant abdominal pain gradually over the course of the day on Monday with nausea and dry heaves 4-5 times a day and had a dark tarry stool but no overt diarrhea. She denies fever or sick contacts but has been feeling somewhat cold though she is not sure if that is due to the weather. She has been feeling somewhat weak when she gets up and moves around will feel like she has increased work of breathing. Her abdominal pain comes and goes and is in the lower quadrants but sometimes will radiate up. Not necessarily having dysuria or urinary frequency but she does report recurrent UTIs and she usually has suprapubic/lower quadrant abdominal discomfort has remained symptoms. Also does have known kidney stones and follows with Dr. Renner. [facility] Medical History Leg cramps Wears hearing aid Post-menopausal Kidney stones DVT (deep venous thrombosis) Restless legs Back pain Injury of head and neck Gastric reflux Former smoker Shortness of breath on exertion History of pain when walking History of stress test Hypertension GERD (gastroesophageal reflux disease) Former smoker High cholesterol Arthritis Osteoarthritis History of blood clots Home Medications ?Medication ?Instructions ?Recorded ?Last Taken ?Type lansoprazole 30 mg capsule,delayed 30 mg PO DAILY gerd 09/14/14 08/28/24 History release (Prevacid) rosuvastatin 40 mg tablet 40 mg PO QHS CHOLESTEROL 06/30/21 08/27/24 History albuterol sulfate 2.5 mg/3 mL 2.5 mg (3 mL) inhalation Q4H PRN 07/01/21 07/21/21 Rx (0.083 %) solution for nebulization SOB &/OR WHEEZING 14 days #1 mL potassium chloride 20 mEq 40 meq (2 x 20 mEq) PO DAILY 07/01/21 08/27/24 Rx tablet,extended release(part/cryst) potassium #0 tabs menthol 4 % topical gel (Biofreeze 1 applic topical DAILY PAIN 07/21/21 Unknown History (menthol)) duloxetine 30 mg capsule,delayed 30 mg PO QAM DEPRESSION #90 caps 06/04/24 08/27/24 Rx release duloxetine 60 mg capsule,delayed 60 mg PO QHS DEPRESSION #90 caps 06/04/24 08/27/24 Rx release pramipexole 1 mg tablet 0.5 mg PO BID RLS 06/04/24 08/28/24 History chlorthalidone 25 mg tablet 25 mg PO DAILY BP 08/20/24 08/27/24 History acetaminophen 500 mg tablet 500 mg PO Q6H #30 tabs 08/29/24 Unknown Rx meloxicam 15 mg tablet 15 mg PO LUNCH #30 tabs 08/29/24 Unknown Rx diltiazem HCl 180 mg capsule,24 180 mg PO DAILY 12/02/24 Unknown History hr,extended release Allergy/AdvReac Type Severity Reaction Status Date / Time meperidine HCl (From Demerol) Allergy Severe Swelling Verified 12/02/24 08:35 poison adelaide extract (Poison Allergy Rash Verified 12/02/24 08:35 Adelaide Extract) atorvastatin calcium (From AdvReac Upset Verified 12/02/24 08:35 Lipitor) Stomach cefaclor (From Ceclor) AdvReac PALPITATIONS, Verified 12/02/24 08:35 CHEST PRESSURE, SHORT OF BREATH doxycycline AdvReac Upset Verified 12/02/24 08:35 Stomach hydrocodone AdvReac Upset Verified 12/02/24 08:35 Stomach Family History Mother Arthritis CVA (cerebral vascular accident) Father Myocardial infarction Heart disease Hypertension High cholesterol Surgical History Hx of colonoscopy Hx of bilateral breast reduction surgery Hx of surgical procedure History of hip replacement History of toe surgery History of renal stent History of cataract surgery History of knee replacement History of extraction of renal calculus History of carotid endarterectomy History of zjxjv-xlugq-xlhwyiz bypass Social History Smoking Status: Former smoker Tobacco: How many years used: 40 Electronic Cigarette Use: not used how long ago did patient quit smokin years ago second hand exposure: No alcohol intake: current alcohol intake frequency: holidays/special occasions only substance use type: does not use alan/samaritan: None seatbelt use: sometimes ROS Constitutional Constitutional: Denies fatigue, fever(s), poor appetite, weight gain or weight loss Gastrointestinal Gastrointestinal: Denies belching, bloating, change in bowel habits, change in stool character, chewing difficulty, coffee ground emesis, constipation, cramping, diarrhea, dyspepsia, dysphagia, early satiety, excessive flatus, fecal incontinence, heartburn, hematemesis, hematochezia, hemorrhoids, loose stools, melena, nausea, odynophagia, rectal bleeding, tenesmus, vomiting or weight changes Lab / Micro Data 12/03/24 06:30 12/03/24 06:30 Labs: Laboratory Results - last 24 hr 12/03/24 06:30: WBC 11.0, RBC 3.60 L, Hgb 11.2 L, Hct 33.9 L, MCV 94.2, MCH 31.1, MCHC 33.0, RDW Std Deviation 46.6 H, RDW Coeff of Davidson 13.7, Plt Count 177, MPV 10.1, Immature Gran % (Auto) 1.100 H, Neut % (Auto) 76.2 H, Lymph % (Auto) 13.6 L, [place] % (Auto) 7.2, Eos % (Auto) 1.6, Baso % (Auto) 0.3, Absolute Neuts (auto) 8.4 H, Absolute Lymphs (auto) 1.50, Nucleated RBC % 0, Sodium 143, P otassium 3.3 L, Chloride 113 H, Carbon Dioxide 26.0, Anion Gap 4 L, BUN 12, Creatinine 0.70, Estim Creat Clear Calc 47.57, Est GFR (MDRD) Af Amer 104, Est GFR (MDRD) Non-Af 86, BUN/Creatinine Ratio 17.3, Glucose 110 H, Calcium 8.8, Total Bilirubin 0.90, AST 28, ALT 21, Alkaline Phosphatase 87, Total Protein 5.8 L, Albumin 2.5 L, Globulin 3.3, Albumin/Globulin Ratio 0.8 L Micro: Microbiology 12/02/24 09:35 Urine, Clean Catch Urine Culture - Preliminary GNR lactose paper roller 12/02/24 20:06 Mucosa - Nasopharyngeal Respiratory Panel (PCR) - Final Imaging Radiology Impression MRCP 12/02/24 18:15 IMPRESSION: Dilated common bile duct. No stones are identified. Mild right hydronephrosis. Electronically Signed: Connor Russ MD at 20:55 EST , Assessment & Plan Assessment/Plan (1) Abdominal pain: PLAN: Plan 79-year-old female was admitted with abdominal pain, nausea and vomiting for the past 1 week status post surgery. I agree with nausea and abdominal pain possibly induced by NSAIDs. Also differential diagnosis does include peptic ulcer disease, duodenitis, gastritis. Agree with PPI therapy. -CT chest/abdomen/pelvis and gallbladder ultrasound with gallbladder sludge, GB wall 2.1 mm. CBD 6.3 mm. MRCP does show that her common bile duct is up to a centimeter from 6 mm. Typically the common bile duct should not be 6 mm or greater in the setting of a patient that has a gallbladder. That usually indicates papillary stenosis, distal common bile duct stenosis, ampullary lesion, choledocholithiasis or sludge. The MRCP also showed mild hydronephrosis in the setting of kidney stones. Her kidney function is normal. -Patient at least needs an EGD to evaluate upper GI tract and possible ERCP. Charges/Coding Visit Charges Inpatient E&M: 09722 Init Hosp L3
[2024-12-03] MEDS: ROSUVASTATIN CALCIUM 40 MG TABLET PO (20:13)
[2024-12-03] MEDS: DULoxetine Hcl 60 MG Capsule PO (20:15)
[2024-12-03] MEDS: 0.9% Saline Lock 10 ML Syringe IV (20:15)
[2024-12-03 21:28] VITALS: BP 161/42; PULSE 68; RESP 16; TEMP 36.5; O2SAT 100
[2024-12-03 23:19] VITALS: BP 125/40; PULSE 73; RESP 16; TEMP 36.6; O2SAT 94
[2024-12-04 02:50] VITALS: BP 135/40; PULSE 72; RESP 16; TEMP 36.6; O2SAT 98
[2024-12-04 06:57] LABS: Absolute Lymphocyte Count 1.53 X10^3/uL (0.83-4.51); Absolute Neutrophil Count 6.8 X10^3/uL (2.0-7.7); Basophil# 0.03 X10^3/uL; Basophil% 0.3 % (0-1); Eosinophil# 0.18 X10^3/uL; Hematocrit 32.6 % (37-47); Hemoglobin 10.7 g/dL (12.0-15.0); Lymphocyte # 1.53 X10^3/ul (0.83-4.51); Lymphocyte % 16.9 % (19-41); Mean Corp Hgb Conc 32.8 g/dL (32-36); Mean Corpuscular Hgb 31.2 pg (27.0-32.0); Mean Platelet Vol. 10.7 fl (6.2-12.0); Monocyte# 0.49 X10^3/uL; Monocyte% 5.4 % (0-10); NRBC Flagged by Analyzer 0 % (0-5); Neutrophil # 6.77 X10^3/uL (2.7-7.7); Platelet Count 157 K/mm3 (150-450); RBC Distribution Width CV 13.7 % (11.6-14.6); RBC Distribution Width SD 46.6 fl (35.1-43.9); Red Blood Count 3.43 M/mm3 (4.2-5.4)
[2024-12-04 07:14] LABS: Anion Gap 8 (5-15); BUN 11 mg/dL (7-18); Calcium,Total 8.8 mg/dL (8.5-10.1); Chloride 112 mmol/L (98-107); Creatinine, Serum 0.61 mg/dL (0.55-1.02); EST Glomerular Filtration Rate 100 mL/min (>60); Est Glom Filt Rate - Afr Amer 121 mL/min (>60); Estimated Creatinine Clearance 47.57 ml/min; Glucose 82 mg/dL (74-106); Potassium 4.2 mmol/L (3.5-5.1); Sodium Level 142 mmol/L (136-145)
[2024-12-04 09:00] VITALS: BP 175/57; PULSE 82; RESP 16; TEMP 37.3; O2SAT 98
[2024-12-04] MEDS: 0.9% Saline Lock 10 ML Syringe IV ×2 (10:01→15:18)
[2024-12-04] MEDS: oxyCODONE 5 MG Tablet 2.5 MG PO ×2 (10:01→18:25)
[2024-12-04] MEDS: Pantoprazole Sodium 40 MG in 0.9% Normal Saline (100mL MB+) 100 ML 330 MG IV ×2 (10:02→23:38)
[2024-12-04] MEDS: Ceftriaxone 1 GM/50 ML BAG IV (10:02)
[2024-12-04] MEDS: dilTIAZem CD 180 MG Capsule PO (10:03)
[2024-12-04] MEDS: Acetaminophen 325 MG Tablet 650 MG PO ×3 (10:03→23:43)
[2024-12-04] MEDS: DULoxetine Hcl 30 MG Capsule PO (10:03)
[2024-12-04] MEDS: Pramipexole Di-HCl 0.5 MG Tablet PO ×2 (10:03→23:44)
[2024-12-04 13:52] VITALS: BP 179/59; PULSE 85; RESP 16; TEMP 37; O2SAT 98
--- NOTE | 2024-12-04 14:33 | PN.HOSP_ITS ---
Reason for Visit Reason for Visit: Diagnoses Unspecified abdominal pain (12/02/24) Objective Data Objective Data Vital Signs: Vital Signs Temp Pulse Resp BP Pulse Ox O2 Del Method 98.6 F 85 16 179/59 H 98 Room Air 12/04/24 13:52 12/04/24 13:52 12/04/24 13:52 12/04/24 13:52 12/04/24 13:52 12/04/24 13:52 Oxygen Delivery Method Room Air Weight: 140 lb 12.807 oz Body Mass Index (BMI) 31.5 Intake & Output: Intake and Output for Last 24 Hours 12/02/24 12/03/24 12/04/24 23:59 23:59 23:59 Intake Total 1270 / 1270 2090.83 / 2090.83 510 / 510 Output Total 400 / 400 Balance 1270 / 1270 1690.83 / 1690.83 510 / 510 Lab / Micro Data 12/04/24 05:30 12/04/24 05:30 Labs: Laboratory Results - last 24 hr 12/04/24 05:30: WBC 9.0, RBC 3.43 L, Hgb 10.7 L, Hct 32.6 L, MCV 95.0, MCH 31.2, MCHC 32.8, RDW Std Deviation 46.6 H, RDW Coeff of Davidson 13.7, Plt Count 157, MPV 10.7, Immature Gran % (Auto) 0.400, Neut % (Auto) 75.0 H, Lymph % (Auto) 16.9 L, [place] % (Auto) 5.4, Eos % (Auto) 2.0, Baso % (Auto) 0.3, Absolute Neuts (auto) 6.8, Absolute Lymphs (auto) 1.53, Nucleated RBC % 0, Sodium 142, Potassium 4.2, Chloride 112 H, Carbon Dioxide 22.0, Anion Gap 8, BUN 11, Creatinine 0.61, Estim Creat Clear Calc 47.57, Est GFR (MDRD) Af Amer 121, Est GFR (MDRD) Non-Af 100, BUN/Creatinine Ratio 18.0, Glucose 82, Calcium 8.8, Magnesium 2.0 Micro: Microbiology 12/02/24 09:35 Urine, Clean Catch Urine Culture - Final Escherichia coli 12/02/24 20:06 Mucosa - Nasopharyngeal Respiratory Panel (PCR) - Final 12/02/24 09:30 Mucosa - Nose SARS-CoV-2, Influenza & RSV (PCR) - Final 12/02/24 09:30 Stool Stool Occult Blood (SACHIN) - Final Occult Blood Positive Physical Exam Narrative Seen and examined. Blood pressure is high about systolic 180. Chlorthalidone was on hold because patient was dehydrated, resumed. Also on IV hydralazine as needed. Discussed with the patient present in the room with plan of going for EGD today. Abdominal pain much improved Physical exam General: Alert, Oriented x3, Cooperative HEENT: Atraumatic, PERRLA, EOMI, Normocephalic Oral: Oral mucosa moist. No Gingival or Mucosal Lesions/ Ulcerations Neck: Supple, No JVD, Negative Carotid Bruits Chest wall/Lungs: Air entry diminished in bilateral lung bases. No crepitation/rhonchi Cardiovascular: Regular rate, Regular Rhythm, Normal S1, Normal S2, No M/G/R Abdomen: Epigastric tenderness has almost resolved. No RUQ tenderness. Bowel Sounds Present, Soft : No dysuria. No renal angle tenderness. No suprapubic tenderness. Extremities: No edema, Capillary Refill Less than 3 Seconds Skin: No rashes, No breakdown Musculoskeletal: No Tenderness to Palpation of Joints or Extremities Neurological: Cranial nerves II-XII grossly intact, DTR 2+/4. No acute focal neurological deficit. Psych/Mental Status: Flat affect. Assessment & Plan Assessment/Plan (1) Abdominal pain: PLAN: Plan 79-year-old female was admitted with abdominal pain, nausea and vomiting for the past 1 week. Complain of watery, brownish stool over the past several days. She is not on anticoagulant agent or taking NSAIDs. No bright red blood. Patient had increased burning micturition but denies frequency. She states she has chronic urinary incontinence. # Nausea and abdominal pain possibly induced by NSAIDs: Patient was taking ibuprofen about 2-4 tablets for last 1 week after hip surgery. She was advised ibuprofen 400 mg every 8 hourly. -CT chest/abdomen/pelvis and gallbladder ultrasound with gallbladder sludge, GB wall 2.1 mm. Negative Crenshaw sign and no features of leukocytosis. CBD 6.3 mm. MRCP was further done which shows normal liver, GB, pancreas and spleen. CBD dilated measuring 1 cm. Patient does not have right upper quadrant abdominal pain or referred pain to shoulder or shoulder. I feel it most likely she has gastritis/PUD or erosive esophagitis. Discussed with bi consultant. 12/04: Enteric pathogen panel negative. Triple PCR for SARS-CoV-2, flu and RSV are negative and respiratory panel negative. GI consult reviewed. Plan for EGD and possible ERCP in future # E. coli, ESBL UTI: UA shows positive LE, nitrite and WBC. On empiric ceftriaxone. Prelim urine culture shows GNR lactose equipment monitor phototypesetting more than 100,000 colonies 12/04: Patient today stated she had burning micturition before coming here. Urine culture shows E. coli more than 100,000 colonies. ESBL negative. Sensitive to ceftriaxone which patient is already on # FOBT positive: She had loose bowel movement which is resolved now. Had normal stool in the ED. Stool for occult blood positive. H&H 11.2/33.9%. Continue PPI IV twice daily 12/04: Plan for EGD today #GERD -Continue PPI #Hypertension: Hold chlorthalidone and diltiazem continued with holding parameters. #Depression/anxiety -Continue home medications #Hypokalemia Repeat K3.3. Potassium replaced. # RLS -Continue home pramipexole #DVT ppx: SCDs Charges/Coding Visit Charges Inpatient E&M: 97377 Subs Hosp L2
--- NOTE | 2024-12-04 15:08 | CASEMGMT ---
Dr. Gr states that the pt is not Medically ready for DC today. TC to [facility] and Claudette states that they can tentatively start care this Monday. CM to follow.
[2024-12-04 15:17] VITALS: BP 179/59; PULSE 85
[2024-12-04] MEDS: hydrALAZINE 20 MG/ML Vial 10 MG IV (15:17)
--- NOTE | 2024-12-04 17:50 | EX.PCM.PN.GI ---
Subjective Subjective Patient did not have endoscopy today because she was eating. The original plan was to put the endoscopy because she was not eating and we were going to place Dobbhoff tube. But if she is eating she might not need a Dobbhoff tube. Objective Data Objective Data Vital Signs: Vital Signs Temp Pulse Resp BP Pulse Ox O2 Del Method 98.6 F 85 16 179/59 H 98 Room Air 12/04/24 13:52 12/04/24 15:17 12/04/24 13:52 12/04/24 15:17 12/04/24 13:52 12/04/24 15:00 Oxygen Delivery Method Room Air Weight: 140 lb 12.807 oz Body Mass Index (BMI) 31.5 Intake & Output: Intake and Output for Last 24 Hours 12/02/24 12/03/24 12/04/24 23:59 23:59 23:59 Intake Total 1270 / 1270 2090.83 / 2090.83 1010 / 1010 Output Total 400 / 400 Balance 1270 / 1270 1690.83 / 1690.83 1010 / 1010 Lab / Micro Data 12/04/24 05:30 12/04/24 05:30 Labs: Laboratory Results - last 24 hr 12/04/24 05:30: WBC 9.0, RBC 3.43 L, Hgb 10.7 L, Hct 32.6 L, MCV 95.0, MCH 31.2, MCHC 32.8, RDW Std Deviation 46.6 H, RDW Coeff of [place] 13.7, Plt Count 157, MPV 10.7, Immature Gran % (Auto) 0.400, Neut % (Auto) 75.0 H, Lymph % (Auto) 16.9 L, [place] % (Auto) 5.4, Eos % (Auto) 2.0, Baso % (Auto) 0.3, Absolute Neuts (auto) 6.8, Absolute Lymphs (auto) 1.53, Nucleated RBC % 0, Sodium 142, Potassium 4.2, Chloride 112 H, Carbon Dioxide 22.0, Anion Gap 8, BUN 11, Creatinine 0.61, Estim Creat Clear Calc 47.57, Est GFR (MDRD) Af Amer 121, Est GFR (MDRD) Non-Af 100, BUN/Creatinine Ratio 18.0, Glucose 82, Calcium 8.8, Magnesium 2.0 Micro: Microbiology 12/02/24 09:35 Urine, Clean Catch Urine Culture - Final Escherichia coli 12/02/24 20:06 Mucosa - Nasopharyngeal Respiratory Panel (PCR) - Final 12/02/24 09:30 Mucosa - Nose SARS-CoV-2, Influenza & RSV (PCR) - Final 12/02/24 09:30 Stool Stool Occult Blood (SACHIN) - Final Occult Blood Positive Physical Exam Narrative Seen and examined. Physical exam General: Alert, Oriented x3, Cooperative HEENT: Atraumatic, PERRLA, EOMI, Normocephalic Oral: Oral mucosa moist. No Gingival or Mucosal Lesions/ Ulcerations Neck: Supple, No JVD, Negative Carotid Bruits Chest wall/Lungs: Air entry diminished in bilateral lung bases. No crepitation/rhonchi Cardiovascular: Regular rate, Regular Rhythm, Normal S1, Normal S2, No M/G/R Abdomen: Epigastric tenderness has almost resolved. No RUQ tenderness. Bowel Sounds Present, Soft : No dysuria. No renal angle tenderness. No suprapubic tenderness. Extremities: No edema, Capillary Refill Less than 3 Seconds Skin: No rashes, No breakdown Musculoskeletal: No Tenderness to Palpation of Joints or Extremities Neurological: Cranial nerves II-XII grossly intact, DTR 2+/4. No acute focal neurological deficit. Psych/Mental Status: Flat affect. Assessment & Plan Assessment/Plan (1) Abdominal pain: PLAN: Plan 79-year-old female was admitted with abdominal pain, nausea and vomiting for the past 1 week status post surgery. I agree with nausea and abdominal pain possibly induced by NSAIDs. Also differential diagnosis does include peptic ulcer disease, duodenitis, gastritis. Agree with PPI therapy. -CT chest/abdomen/pelvis and gallbladder ultrasound with gallbladder sludge, GB wall 2.1 mm. CBD 6.3 mm. MRCP does show that her common bile duct is up to a centimeter from 6 mm. Typically the common bile duct should not be 6 mm or greater in the setting of a patient that has a gallbladder. That usually indicates papillary stenosis, distal common bile duct stenosis, ampullary lesion, choledocholithiasis or sludge. The MRCP also showed mild hydronephrosis in the setting of kidney stones. Her kidney function is normal. -Patient at least needs an EGD to evaluate upper GI tract and possible ERCP. -12/04/2024 -the plan is for an upper endoscopy tomorrow morning. Please complete n.p.o. past midnight. Charges/Coding Visit Charges Inpatient E&M: 20096 [facility] Hosp L3
[2024-12-04 17:58] VITALS: BP 167/58; PULSE 85; RESP 16; TEMP 36.6; O2SAT 98
[2024-12-04] MEDS: Mag Hydrox/Al Hydrox/Simeth 30 ML UDC 15 ML PO (18:25)
[2024-12-04 23:35] VITALS: BP 136/64; PULSE 78; RESP 16; TEMP 37.2; O2SAT 96
[2024-12-04] MEDS: DULoxetine Hcl 60 MG Capsule PO (23:45)
[2024-12-04] MEDS: ROSUVASTATIN CALCIUM 40 MG TABLET PO (23:45)
[2024-12-05] VITALS (10 sets, daily range): BP systolic 143–161; BP diastolic 47–69; PULSE 70–93; RESP 16–18; TEMP 36.6–37.4; O2SAT 95–99
[2024-12-05 06:03] LABS: Absolute Lymphocyte Count 1.64 X10^3/uL (0.83-4.51); Absolute Neutrophil Count 5.4 X10^3/uL (2.0-7.7); Basophil# 0.02 X10^3/uL; Basophil% 0.3 % (0-1); Eosinophil# 0.14 X10^3/uL; Eosinophils% 1.8 % (0-5); Hematocrit 33.5 % (37-47); Hemoglobin 10.8 g/dL (12.0-15.0); Lymphocyte # 1.64 X10^3/ul (0.83-4.51); Lymphocyte % 21.6 % (19-41); Mean Corp Hgb Conc 32.2 g/dL (32-36); Mean Corpuscular Hgb 30.8 pg (27.0-32.0); Mean Corpuscular Volume 95.4 fL (81-99); Monocyte% 5.3 % (0-10); NRBC Flagged by Analyzer 0 % (0-5); Neutrophil # 5.35 X10^3/uL (2.7-7.7); Neutrophil % 70.6 % (47-70); Platelet Count 171 K/mm3 (150-450); RBC Distribution Width SD 47.1 fl (35.1-43.9); Red Blood Count 3.51 M/mm3 (4.2-5.4); White Blood Count 7.6 K/mm3 (4.4-11.0)
--- NOTE | 2024-12-05 06:30 | IMM_PTH ---
PATIENT: TREY CALVERT LOC: MS3 U#:[id number] AGE/SX: 79/F ROOM: NH313 RE12/02/[address]: Dr. Herminio Vuong MD : 1945 BED: 1 DIS: 12/06/2024 SPEC #: [id number] RECD: 12/05/24 10:22 STATUS: SOUElsy REQ #: [id number] TONY: 12/05/24 06:[address]: Isaiah Sorensen DEPT: IMMUNOHISTOCHEMISTRY RECD BY: Mihir Gaytan ENTERED: 12/05/24 10:23 SP TYPE: IMMUNO OTHR DR: MD Dr. Marcelo Cowan MD Dr. Prakash Chand, MD Dr. Paige Pierce, MD Tissues: Gastric mucous membrane Procedures: H Pylori (initial) PHYSICIAN & INSTITUTION [place] [id number] SPECIMEN INFORMATION: Tissue Source: Gastric body biopsy Clinical Info: Abdominal pain Specimen Number: [id number] CPT code: 10008 METHODOLOGY: Deparaffinized sections of prefer/formalin-fixed tissue or PAP/DQ stained slides are incubated with monoclonal/polyclonal antibodies/oligonucleotide probes. Localization is made via biotin free immunoperoxidase method. Appropriate controls are performed and reacted as expected. Results on target cell population are indicated in the following table: RESULTS: ANTIBODY / CLONE RESULT H Pylori (polyclonal) negative These tests were developed and their performance characteristics determined by [facility]. They may not have been cleared or approved by the U.S. Food and Drug Administration. The FDA has determined that such clearance or approval is not necessary. The above immunohistochemical/dualISH markers are ordered and reviewed by the Pathologist. INTERPRETATION: Gastric body, biopsy: Negative for Helicobacter pylori organisms. SARABJIT/ 12/06/2024
--- NOTE | 2024-12-05 06:30 | EGD_PTH ---
PATIENT: TREY CALVERT LOC: MS3 U#:[id number] AGE/SX: 79/F ROOM: MS313 RE12/02/[address]: Dr. Herminio Vuong MD : 1945 BED: 1 DIS: 12/06/2024 SPEC #: [id number] RECD: 12/05/24 09:26 STATUS: RACQUEL REQ #: [id number] TONY: 12/05/24 06:[address]: Isaiah Sorensen DEPT: SURGICAL PATHOLOGY RECD BY: Chinyere Parisi ENTERED: 12/05/24 10:43 SP TYPE: EGD BIOPSY OTHR DR: MD Dr. Marcelo Cowan MD Dr. Prakash Chand, MD Dr. Paige Pierce, MD Dr. Rahsaan Friend, DO Tissues: Gastric mucous membrane Procedures: Surgery Specimen Level IV Comments: @ Ordering doctor for SUIV edited from to @ corin BREWER at 12/05/24 1306 @ Submitting doctor edited from to @ by OSMAN at 12/05/24 1306 HEADER OPERATION: EGD with biopsy PRE-OP DIAGNOSIS: Abdominal pain TISSUE SUBMITTED: Gastric body biopsy MICROSCOPIC DIAGNOSIS Gastric body, biopsy: Fragments of gastric mucosa with focal ulceration, acute and chronic inflammation and reactive epithelial changes. See comment. 12/06/2024 COMMENT The results of immunohistochemistry for Helicobacter pylori will be reported separately ([id number]). MICROSCOPIC DESCRIPTION Slides are reviewed. GROSS DESCRIPTION Received in fixative is one container labeled with the patient's name and designated Gastric body biopsy. The specimen consists of multiple irregular fragments of light rizo soft tissue that in aggregate measure 1.5 x 0.5 x 0.2 cm. The specimen is totally submitted in one cassette. 12/05/2024 TC:2 CPT:58494
--- NOTE | 2024-12-05 06:46 | PN.GI_ITS ---
Subjective Subjective Patient abdominal pain is little better. We will do the upper endoscopy today. Objective Data Objective Data Vital Signs: Vital Signs Temp Pulse Resp BP Pulse Ox O2 Del Method 98.7 F 71 16 143/68 H 99 Room Air 12/05/24 05:12 12/05/24 05:12 12/05/24 05:12 12/05/24 05:12 12/05/24 05:12 12/05/24 05:12 Oxygen Delivery Method Room Air Weight: 140 lb 12.807 oz Body Mass Index (BMI) 31.5 Intake & Output: Intake and Output for Last 24 Hours 12/03/24 12/04/24 12/05/24 23:59 23:59 23:59 Intake Total 2090.83 / 2090.83 1810 / 0 110 / 110 Output Total 400 / 400 350 / 350 Balance 1690.83 / 1690.83 1809 / 1809 -240 / -240 Lab / Micro Data 12/05/24 05:28 12/04/24 05:30 Labs: Laboratory Results - last 24 hr 12/04/24 05:30: WBC 9.0, RBC 3.43 L, Hgb 10.7 L, Hct 32.6 L, MCV 95.0, MCH 31.2, MCHC 32.8, RDW Std Deviation 46.6 H, RDW Coeff of Davidson 13.7, Plt Count 157, MPV 10.7, Immature Gran % (Auto) 0.400, Neut % (Auto) 75.0 H, Lymph % (Auto) 16.9 L, Monona % (Auto) 5.4, Eos % (Auto) 2.0, Baso % (Auto) 0.3, Absolute Neuts (auto) 6.8, Absolute Lymphs (auto) 1.53, Nucleated RBC % 0, Sodium 142, Potassium 4.2, Chloride 112 H, Carbon Dioxide 22.0, Anion Gap 8, BUN 11, Creatinine 0.61, Estim Creat Clear Calc 47.57, Est GFR (MDRD) Af Amer 121, Est GFR (MDRD) Non-Af 100, BUN/Creatinine Ratio 18.0, Glucose 82, Calcium 8.8, Magnesium 2.0 12/05/24 05:28: WBC 7.6, RBC 3.51 L, Hgb 10.8 L, Hct 33.5 L, MCV 95.4, MCH 30.8, MCHC 32.2, RDW Std Deviation 47.1 H, RDW Coeff of Davidson 14.0, Plt Count 171, MPV 10.0, Immature Gran % (Auto) 0.400, Neut % (Auto) 70.6 H, Lymph % (Auto) 21.6, Monona % (Auto) 5.3, Eos % (Auto) 1.8, Baso % (Auto) 0.3, Absolute Neuts (auto) 5.4, Absolute Lymphs (auto) 1.64, Nucleated RBC % 0 Micro: Microbiology 12/02/24 09:35 Urine, Clean Catch Urine Culture - Final Escherichia coli 12/02/24 20:06 Mucosa - Nasopharyngeal Respiratory Panel (PCR) - Final 12/02/24 09:30 Mucosa - Nose SARS-CoV-2, Influenza & RSV (PCR) - Final 12/02/24 09:30 Stool Stool Occult Blood (SACHIN) - Final Occult Blood Positive Physical Exam Narrative Seen and examined. Physical exam General: Alert, Oriented x3, Cooperative HEENT: Atraumatic, PERRLA, EOMI, Normocephalic Oral: Oral mucosa moist. No Gingival or Mucosal Lesions/ Ulcerations Neck: Supple, No JVD, Negative Carotid Bruits Chest wall/Lungs: Air entry diminished in bilateral lung bases. No crepitation/rhonchi Cardiovascular: Regular rate, Regular Rhythm, Normal S1, Normal S2, No M/G/R Abdomen: Epigastric tenderness has almost resolved. No RUQ tenderness. Bowel Sounds Present, Soft : No dysuria. No renal angle tenderness. No suprapubic tenderness. Extremities: No edema, Capillary Refill Less than 3 Seconds Skin: No rashes, No breakdown Musculoskeletal: No Tenderness to Palpation of Joints or Extremities Neurological: Cranial nerves II-XII grossly intact, DTR 2+/4. No acute focal neurological deficit. Psych/Mental Status: Flat affect. Assessment & Plan Assessment/Plan (1) Abdominal pain: PLAN: Plan 79-year-old female was admitted with abdominal pain, nausea and vomiting for the past 1 week status post surgery. I agree with nausea and abdominal pain possibly induced by NSAIDs. Also differential diagnosis does include peptic ulcer disease, duodenitis, gastritis. Agree with PPI therapy. -CT chest/abdomen/pelvis and gallbladder ultrasound with gallbladder sludge, GB wall 2.1 mm. CBD 6.3 mm. MRCP does show that her common bile duct is up to a centimeter from 6 mm. Typically the common bile duct should not be 6 mm or greater in the setting of a patient that has a gallbladder. That usually indicates papillary stenosis, distal common bile duct stenosis, ampullary lesion, choledocholithiasis or sludge. The MRCP also showed mild hydronephrosis in the setting of kidney stones. Her kidney function is normal. -Patient at least needs an EGD to evaluate upper GI tract and possible ERCP. -12/04/2024 -the plan is for an upper endoscopy tomorrow morning. Please complete n.p.o. past midnight. -12/05/2024-patient's hemoglobin is slightly down. Will do an upper endoscopy to see if there is pathology in her upper GI tract that is contributing to her abdominal pain and decreased hemoglobin. Charges/Coding Visit Charges Inpatient E&M: 03496 Subs Hosp L3
--- NOTE | 2024-12-05 06:49 | PRE.ANES_ITS ---
ASA Classification* ASA Classification ASA Classification: 3 Assessment & Plan Anesthesia* Anesthesia Assessment Anesthesia Assessment: Discussed sedation and/or anesthesia options, risks, benefits, and alternatives with patient/parents/legal guardian/POA. Questions invited. The patient/parents/legal guardian/POA seems to understand and agrees to proceed with anesthesia plan. Reviewed the physical assessment, medical history, allergy history and patient home medications list prior to surgery/procedure/anesthetic and documented any changes. Performed airway and anesthesia risk assessments. Anesthesia Type Anesthesia Type: MAC History Source History Obtained from:: Patient and Chart Anesthesia Focused Assessment* Temperature: 98.7 F Pulse Rate: 71 Blood Pressure: 143/68 Respiratory Rate: 16 Pulse Ox: 99 Oxygen Delivery Method: Room Air Airway Assessment Mouth opens: >3 cm Mallampati Score: III Teeth Condition: Intact Focused Labs Anesthesia Preop lab: CBC WBC 7.6 K/mm3 (4.4-11.0) 12/05/24 05:28 RBC 3.51 M/mm3 (4.2-5.4) L 12/05/24 05:28 Hgb 10.8 g/dL (12.0-15.0) L 12/05/24 05:28 Hct 33.5 % (37-47) L 12/05/24 05:28 Plt Count 171 K/mm3 (150-450) 12/05/24 05:28 CHEMISTRY Potassium 4.2 mmol/L (3.5-5.1) 12/04/24 05:30 Sodium 142 mmol/L (136-145) 12/04/24 05:30 Magnesium 2.0 mg/dL (1.6-2.6) 12/04/24 05:30 Phosphorus 2.9 mg/dL (2.5-4.9) 07/22/21 05:56 BUN 11 mg/dL (7-18) 12/04/24 05:30 Creatinine 0.61 mg/dL (0.55-1.02) 12/04/24 05:30 Glucose 82 mg/dL (74-106) 12/04/24 05:30 POC Glucose 157 mg/dL (74-106) H 08/28/24 06:27 TSH 1.47 uIU/mL (0.358-3.74) 02/08/21 09:47 COAG PT 12.9 SECONDS (11.7-14.9) 09/02/17 18:15 Pre-Assessment Diagnosis/Proposed Procedure Planned Operative Procedure(s): EGD, Dobhoff placement Anesthesia History 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 When Was Last Pacemaker Check QUESTION #4 FULL TEXT: You/Your Family Experience fever (hyperthermia) with Anesthesia Last Oral Intake Last Oral intake: Last Oral Intake NPO since Meds taken in AM with sips of water? Meds patient instructed to take am of surgery PONV PONV - combatant diver officer: PONV - combatant diver officer Female HX of Motion Sickness HX of N/V After Surgery Non-Smoker Duration of Surgery greater than 60 minutes Number of Risk Factors PONV Score Height & Weight Height & Weight: Anesthesia: Height & Weight Height 4 ft 8 in 12/03/24 15:24 Weight: 63.866 kg 12/03/24 15:24 Body Mass Index (BMI) 31.5 12/02/24 09:08 Respiratory Assessment Respiratory Assessment - combatant diver officer: Respiratory Tract Infection Hx - combatant diver officer Hx Respiratory Tract Infection Yes: Cold 12/05/24 05:34 STOP Sleep Apnea STOP Sleep Apnea - combatant diver officer: STOP Sleep Apnea - combatant diver officer Hx Hypertension Yes 12/03/24 13:28 Hx Sleep Apnea No 12/02/24 17:49 CPAP No 12/02/24 17:49 BIPAP No 12/02/24 17:49 Do you snore loudly (louder No 12/02/24 17:49 than talking or can be heard Do you often feel tired/ No 12/02/24 17:49 fatigued/ sleepy during daytime? Has anyone observed you stop No 12/02/24 17:49 breathing during sleep? STOP Results Negative 12/02/24 17:49 QUESTION #5 FULL TEXT : Do you snore loudly (louder than talking or can be heard through closed doors)? 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 Specify any problems Hx of Preganancy in last 3 No 12/02/24 17:49 Months Nurse Filling Out Transfusion NMARTY 12/02/24 17:49 & Questions: Date: 12/02/24 12/02/24 17:49 Time: 17:56 12/02/24 17:49 Patient unable to answer at this time (ie. confused, unrespo /Reproduction History /Reproductive History - combatant diver officer: /Reproductive Hx- combatant diver officer Hx Now No 12/05/24 05:34 Gestational Age (in weeks): EDC: Hx Hx Para Hx Section SAB No 12/05/24 05:34 Active Medications Active Medications: Current Medications Generic Name Dose Route Start Last Admin Trade Name Freq PRN Reason Stop Dose Admin Acetaminophen 650 mg 12/02/24 17:42 12/04/24 23:43 Acetaminophen 325 Mg Tablet PO 650 mg Q6H PRN PRN Administration Pain 1-10 Or Fever >100.7 Al Hydroxide/Mg Hydroxide 15 ml 12/03/24 10:22 12/04/24 18:25 Mag Hydrox/Al Hydrox/Simeth 30 Ml Udc PO 15 ml Q4H PRN PRN Administration HEARTBURN Albuterol Sulfate 2.5 mg 12/02/24 17:42 Albuterol 2.5 Mg/3 Ml Vial.Neb. INHALATION Q2H PRN PRN SOB &/OR WHEEZING Chlorthalidone 25 mg 12/05/24 10:00 Chlorthalidone 50 Mg Tablet PO DAILY LETA Diltiazem HCl 180 mg 12/04/24 14:13 Diltiazem Cd 180 Mg Capsule PO DAILY LETA Duloxetine HCl 30 mg 12/03/24 10:00 12/04/24 10:03 Duloxetine Hcl 30 Mg Capsule PO 30 mg QAM LETA Administration Duloxetine HCl 60 mg 12/02/24 22:00 12/04/24 23:45 Duloxetine Hcl 60 Mg Capsule PO 60 mg QHS LETA Administration Hydralazine HCl 10 mg 12/04/24 14:13 12/04/24 15:17 Hydralazine 20 Mg/Ml Vial IV 10 mg Q4H PRN PRN Administration SBP more than 180 mmHg Protocol Pantoprazole Sodium 40 mg/ 110 mls @ 330 mls/hr 12/02/24 22:00 12/05/24 01:30 Sodium Chloride IV Infused Q12 LETA Infusion Sodium Chloride 100 mls @ 15 mls/hr 12/02/24 18:07 IV .Q6H40M PRN Saline Flush Sodium Chloride 100 mls @ 15 mls/hr 12/02/24 18:07 IV .Q6H40M PRN Additional IVPB Infusion Ceftriaxone Sodium 1 gm in 50 mls @ 100 mls/hr 12/02/24 18:20 12/04/24 10:35 Rocephin IV Infused Q24 LETA Infusion Melatonin 3 mg 12/02/24 17:42 12/02/24 21:26 Melatonin 3 Mg Tablet PO 3 mg QHS PRN PRN Administration INSOMNIA Morphine Sulfate 2 mg 12/02/24 17:42 Morphine 2 Mg/Ml Syringe IV Q3H PRN PRN Pain Score 6-10 Ondansetron HCl 4 mg 12/02/24 17:42 12/03/24 10:18 Ondansetron 4 Mg/2 Ml Vial IV 4 mg Q8H PRN PRN Administration NAUSEA/VOMITING Oxycodone HCl 2.5 mg 12/02/24 17:42 12/04/24 18:25 Oxycodone 5 Mg Tablet PO 2.5 mg Q4H PRN PRN Administration Pain Score 4-10 Pramipexole Dihydrochloride 0.5 mg 12/02/24 22:00 12/04/24 23:44 Pramipexole Di-Hcl 0.5 Mg Tablet PO 0.5 mg BID LETA Administration Rosuvastatin Calcium 40 mg 12/02/24 22:00 12/04/24 23:45 Rosuvastatin Calcium 40 Mg Tablet PO 40 mg QHS LETA Administration Senna/Docusate Sodium 2 tablet 12/02/24 17:42 Senna/Docusate Sodium 1 Tablet PO BID PRN PRN Constipation Sodium Chloride 10 - 40 ml 12/02/24 18:07 12/04/24 15:18 0.9% Saline Lock 10 Ml Syringe IV 10 ml UD PRN Administration SALINE FLUSH PFSH Medical History Leg cramps Wears hearing aid Post-menopausal Kidney stones DVT (deep venous thrombosis) Restless legs Back pain Injury of head and neck Gastric reflux Former smoker Shortness of breath on exertion History of pain when walking History of stress test Hypertension GERD (gastroesophageal reflux disease) Former smoker High cholesterol Arthritis Osteoarthritis History of blood clots Home Medications ?Medication ?Instructions ?Recorded ?Last Taken ?Type lansoprazole 30 mg capsule,delayed 30 mg PO DAILY gerd 09/14/14 08/28/24 History release (Prevacid) rosuvastatin 40 mg tablet 40 mg PO QHS CHOLESTEROL 06/30/21 08/27/24 History albuterol sulfate 2.5 mg/3 mL 2.5 mg (3 mL) inhalation Q4H PRN 07/01/21 07/21/21 Rx (0.083 %) solution for nebulization SOB &/OR WHEEZING 14 days #1 mL potassium chloride 20 mEq 40 meq (2 x 20 mEq) PO DAILY 07/01/21 08/27/24 Rx tablet,extended release(part/cryst) potassium #0 tabs menthol 4 % topical gel (Biofreeze 1 applic topical DAILY PAIN 07/21/21 Unknown History (menthol)) duloxetine 30 mg capsule,delayed 30 mg PO QAM DEPRESSION #90 caps 06/04/24 08/27/24 Rx release duloxetine 60 mg capsule,delayed 60 mg PO QHS DEPRESSION #90 caps 06/04/24 08/27/24 Rx release pramipexole 1 mg tablet 0.5 mg PO BID RLS 06/04/24 08/28/24 History chlorthalidone 25 mg tablet 25 mg PO DAILY BP 08/20/24 08/27/24 History acetaminophen 500 mg tablet 500 mg PO Q6H #30 tabs 08/29/24 Unknown Rx meloxicam 15 mg tablet 15 mg PO LUNCH #30 tabs 08/29/24 Unknown Rx diltiazem HCl 180 mg capsule,24 180 mg PO DAILY 12/02/24 Unknown History hr,extended release Allergy/AdvReac Type Severity Reaction Status Date / Time meperidine HCl (From Demerol) Allergy Severe Swelling Verified 12/02/24 08:35 poison adelaide extract (Poison Allergy Rash Verified 12/02/24 08:35 Adelaide Extract) atorvastatin calcium (From AdvReac Upset Verified 12/02/24 08:35 Lipitor) Stomach cefaclor (From Ceclor) AdvReac PALPITATIONS, Verified 12/02/24 08:35 CHEST PRESSURE, SHORT OF BREATH doxycycline AdvReac Upset Verified 12/02/24 08:35 Stomach hydrocodone AdvReac Upset Verified 12/02/24 08:35 Stomach Family History Mother Arthritis CVA (cerebral vascular accident) Father Myocardial infarction Heart disease Hypertension High cholesterol Surgical History Hx of colonoscopy Hx of bilateral breast reduction surgery Hx of surgical procedure History of hip replacement History of toe surgery History of renal stent History of cataract surgery History of knee replacement History of extraction of renal calculus History of carotid endarterectomy History of rnrml-ygloz-bzaqioy bypass Social History Smoking Status: Former smoker Tobacco: How many years used: 40 Electronic Cigarette Use: not used how long ago did patient quit smokin years ago second hand exposure: No alcohol intake: current alcohol intake frequency: holidays/special occasions only substance use type: does not use alan/faith: None seatbelt use: sometimes Prior Cardiac Testing/Procedures Prior Cardiac Testing/Procedures: Stress Test Addt'l Information Additional Findings: Normal pharmacologic myocardial perfusion stress test. Preserved ejection fraction. NSR on EKG Review of Systems (Anesthesia) ROS Narrative System reviewed and no additional complaints, except as documented.
[2024-12-05 06:51] LABS: Anion Gap 8 (5-15); BUN 11 mg/dL (7-18); BUN/Creat Ratio 18.1 RATIO (10-20); Calcium,Total 8.9 mg/dL (8.5-10.1); Chloride 110 mmol/L (98-107); Creatinine, Serum 0.61 mg/dL (0.55-1.02); EST Glomerular Filtration Rate 101 mL/min (>60); Est Glom Filt Rate - Afr Amer 122 mL/min (>60); Estimated Creatinine Clearance 47.57 ml/min; Glucose 98 mg/dL (74-106); Potassium 3.4 mmol/L (3.5-5.1); Sodium Level 139 mmol/L (136-145)
--- NOTE | 2024-12-05 07:16 | OP.EGD_ITS ---
Patient Name: oJyce Hurst Procedure Date: 12/05/2024 6:22 AM Date of : 1945 Age: 79 Procedure: Upper GI endoscopy Indications: Epigastric abdominal pain, Acute post hemorrhagic anemia Providers: Isaiah Sorensen DO Medicines: Monitored Anesthesia Care Patient Profile: This is a 79 year old female. Refer to note in patient chart for documentation of history and physical. Patient has symptoms of acute abdominal cramping, acute epigastric abdominal pain, acute dyspepsia and acute nausea. Complications: No immediate complications. Procedure: Pre-Anesthesia Assessment: - Prior to the procedure, a History and Physical was performed, and patient medications and allergies were reviewed. The patient is competent. The risks and benefits of the procedure and the sedation options and risks were discussed with the patient. All questions were answered and informed consent was obtained. Patient identification and proposed procedure were verified by the physician in the pre-procedure area. Mental Status Examination: alert and oriented. Airway Examination: normal oropharyngeal airway and neck mobility. Respiratory Examination: clear to auscultation. CV Examination: normal. Prophylactic Antibiotics: The patient does not require prophylactic antibiotics. Prior Anticoagulants: The patient has taken no anticoagulant or antiplatelet agents except for NSAID medication. ASA Grade Assessment: II - A patient with mild systemic disease. After reviewing the risks and benefits, the patient was deemed in satisfactory condition to undergo the procedure. The anesthesia plan was to use minimal sedation / analgesia (anxiolysis). Immediately prior to administration of medications, the patient was re-assessed for adequacy to receive sedatives. The heart rate, respiratory rate, oxygen saturations, blood pressure, adequacy of pulmonary ventilation, and response to care were monitored throughout the procedure. The physical status of the patient was re-assessed after the procedure. After obtaining informed consent, the endoscope was passed under direct vision. Throughout the procedure, the patient's blood pressure, pulse, and oxygen saturations were monitored continuously. The Endoscope was introduced through the mouth, and advanced to the second part of duodenum. The upper GI endoscopy was accomplished without difficulty. The patient tolerated the procedure well. Scope In: 7:01:47 AM Scope Out: 7:05:58 AM Total Procedure Duration Time 0 hours 4 minutes 11 seconds Findings: The examined esophagus was normal. Diffuse glycogenic acanthosis in the entire examined stomach. Biopsies were taken with a cold forceps for histology. Verification of patient identification for the specimen was done. Estimated blood loss was minimal. Diffuse nodular mucosa was found in the entire examined stomach. Biopsies were taken with a cold forceps for histology. Verification of patient identification for the specimen was done. Estimated blood loss was minimal. Many non-bleeding cratered gastric ulcers with no stigmata of bleeding were found in the cardia, in the gastric body and in the gastric antrum. The largest lesion was 10 mm in largest dimension. Diffuse mild inflammation characterized by friability and granularity was found in the entire duodenum. Impression: - Normal esophagus. - Gastric glycogenic acanthosis. Biopsied. - Nodular mucosa in the entire stomach. Biopsied. - Non-bleeding gastric ulcers with no stigmata of bleeding. - Bile duodenitis. Recommendation: - Use sucralfate tablets 1 gram PO QID. - Protonix 40 mg p.o. twice daily - Reglan 5 mg p.o. 4 times daily - Continue present medications. Procedure Code(s): --- Professional --- 92621, Esophagogastroduodenoscopy, flexible, transoral; with biopsy, single or multiple CPT copyright 2021 [employer]. All rights reserved. The codes documented in this report are preliminary and upon content strategy lead review may be revised to meet current compliance requirements. Isaiah Sorensen DO 12/05/2024 7:15:45 AM This report has been signed electronically. Number of Addenda: 0 Note Initiated On: 12/05/2024 6:22 AM
--- NOTE | 2024-12-05 07:17 | OP.CCLET_ITS ---
12/05/2024 Marcelo Borges MD Re : Upper GI endoscopy procedure for Joyce Hurst Dear Dr. Borges This procedure was performed on November. My impressions and recommendations are as follows: Impressions : - Normal esophagus. - Gastric glycogenic acanthosis. Biopsied. - Nodular mucosa in the entire stomach. Biopsied. - Non-bleeding gastric ulcers with no stigmata of bleeding. - Bile duodenitis. Recommendations : - Use sucralfate tablets 1 gram PO QID. - Protonix 40 mg p.o. twice daily - Reglan 5 mg p.o. 4 times daily - Continue present medications. My findings are described in the full procedure note, which is enclosed. If I can be of further assistance, please feel free to contact me at . Sincerely, Isaiah Friend, 12/05/2024 7:15:45 AM This report has been signed electronically.
--- NOTE | 2024-12-05 07:19 | PCM.POST.ANE ---
Anesthesia: Postop Eval I Current Vital Signs Temperature: 98 F Pulse Rate: 73 Blood Pressure: 150/53 Respiratory Rate: 16 Pulse Ox: 98 Oxygen Delivery Method: Room Air Assessment Airway patent: Yes Spontaneous unlabored respirations: Yes Mental status: Asleep nausea: No Vomiting: No Anesthesia Complication: No Fluid Hydration Crystalloid volume administer (ml): 30 Total IV fluid infused: 30 Progress Note Anesthesia document: Postop Eval 1 completed: Yes
--- NOTE | 2024-12-05 07:26 | PCM.POSTANE2 ---
Anesthesia Postop Eval I Sum Postop Eval Completion status Anesthesia document: Postop Eval 1 completed: Yes Anesthesia Postop Eval I Summary Anesthesia Postop Eval I Summary: Anesthesia Postop Eval I: Assessment Summary Airway patent Yes 12/05/24 07:19 [email or web address] Spontaneous unlabored Yes 12/05/24 07:19 [email or web address] respirations Mental status Asleep 12/05/24 07:19 [email or web address] nausea No 12/05/24 07:19 [email or web address] Vomiting No 12/05/24 07:19 [email or web address] Anesthesia Postop Eval I: Fluid Summary Crystalloid volume administer 30 12/05/24 07:19 [email or web address] (ml) Colloids volume administered ( ml) Blood Product volume administered (ml) Total IV fluid infused 30 12/05/24 07:19 [email or web address] Anesthesia Postop Eval I: Summary Notes Anesthesia Complication No 12/05/24 07:19 [email or web address] Anesthesia Complication Comment: Post-operative progress note Anesthesia: Postop Eval II Evaluation Mental status: Awake and Calm Pain Level: 0 nausea: No Vomiting: No Complications Anesthesia Complication: No
--- NOTE | 2024-12-05 08:21 | PCM.PN.HOSP ---
Reason for Visit Reason for Visit: Diagnoses Unspecified abdominal pain (12/02/24) Subjective Subjective Patient is a 79-year-old lady who presented with abdominal pain with associated nausea and vomiting for 1 week admitted to regular nursing floor consult placed to GI Objective Data Objective Data Vital Signs: Vital Signs Temp Pulse Resp BP Pulse Ox O2 Del Method 98.1 F 72 18 161/50 H 96 Room Air 12/05/24 07:27 12/05/24 07:27 12/05/24 07:27 12/05/24 07:27 12/05/24 07:27 12/05/24 07:27 Oxygen Delivery Method Room Air Weight: 63.866 kg Body Mass Index (BMI) 31.5 Intake & Output: Intake and Output for Last 24 Hours 12/03/24 12/04/24 12/05/24 23:59 23:59 23:59 Intake Total 2090.83 / 2090.83 1810 / 1810 110 / 110 Output Total 400 / 400 350 / 350 Balance 1690.83 / 1690.83 1810 / 1810 -240 / -240 Lab / Micro Data 12/05/24 05:28 12/05/24 05:28 Labs: Laboratory Results - last 24 hr 12/05/24 05:28: WBC 7.6, RBC 3.51 L, Hgb 10.8 L, Hct 33.5 L, MCV 95.4, MCH 30.8, MCHC 32.2, RDW Std Deviation 47.1 H, RDW Coeff of Davidson 14.0, Plt Count 171, MPV 10.0, Immature Gran % (Auto) 0.400, Neut % (Auto) 70.6 H, Lymph % (Auto) 21.6, [place] % (Auto) 5.3, Eos % (Auto) 1.8, Baso % (Auto) 0.3, Absolute Neuts (auto) 5.4, Absolute Lymphs (auto) 1.64, Nucleated RBC % 0, Sodium 139, Potassium 3.4 L, Chloride 110 H, Carbon Dioxide 22.0, Anion Gap 8, BUN 11, Creatinine 0.61, Estim Creat Clear Calc 47.57, Est GFR (MDRD) Af Amer 122, Est GFR (MDRD) Non-Af 101, BUN/Creatinine Ratio 18.1, Glucose 98, Calcium 8.9 Micro: Microbiology 12/02/24 09:35 Urine, Clean Catch Urine Culture - Final Escherichia coli 12/02/24 20:06 Mucosa - Nasopharyngeal Respiratory Panel (PCR) - Final 12/02/24 09:30 Mucosa - Nose SARS-CoV-2, Influenza & RSV (PCR) - Final 12/02/24 09:30 Stool Stool Occult Blood (SACHIN) - Final Occult Blood Positive Physical Exam Narrative GENERAL: cooperative HEENT: Atraumatic; normocephalic EYES; Anicteric, Normal Conjunctiva NECK; supple, normal thyroid, RESPIRATORY: Diminished to auscultation CARDIOVASCULAR: Regular S1 S2, GI: soft, normoactive bowel sounds, : No Renal angle tenderness; EXTREMITIES: No edema, no clubbing, MUSCULOSKELETAL: no muscle wasting NEURO: Awake; no lateralizing signs. SKIN: No Rash PSYCH; Flat affect Assessment & Plan Assessment/Plan (1) Abdominal pain: PLAN: Plan Patient is a 79-year-old lady who presented with abdominal pain with associated nausea and vomiting for 1 week admitted to regular nursing floor Abdominal pain with nausea and vomiting ? Admitted to regular nursing floor for symptom management. Patient underwent imaging studies including CT of the abdomen and pelvis as well as gallbladder ultrasound which demonstrated gallbladder sludge, GB wall 2.1 mm. Negative Crenshaw sign and no features of leukocytosis. CBD 6.3 mm. MRCP was further done which shows normal liver, GB, pancreas and spleen. CBD dilated measuring 1 cm. Consult placed to GI patient underwent EGD on 12/05/2023 findings and recommendations as below Impressions : - Normal esophagus. - Gastric glycogenic acanthosis. Biopsied. - Nodular mucosa in the entire stomach. Biopsied. - Non-bleeding gastric ulcers with no stigmata of bleeding. - Bile duodenitis. Recommendations : - Use sucralfate tablets 1 gram PO QID. - Protonix 40 mg p.o. twice daily - Reglan 5 mg p.o. 4 times daily - Continue present medications. 2. Acute cystitis with E. coli ? Patient treated with ceftriaxone 3. GERD ? On PPI 4. Hypertension ? Blood pressure controlled, home medications continued with dose adjustment as needed 5. Restless leg syndrome ? Patient is on pramipexole 6. Dyslipidemia ?Patient is on statin therapy, continued at home dose 7. Depression with anxiety - did continue home meds 8. Hypokalemia -Corrected per protocol 9. Anemia ? Secondary to chronic disorder monitoring H&H and transfuse if patient becomes symptomatic or hemoglobin falls below 7 10. Chronic back pain ? Status post L3-L5 spinal fusion on 11/21/[address] Carlos Emmanuel 11. DVT prophylaxis ? Bilateral SCDs Time spent in the patient's overall evaluation,decision-making process, review of diagnostic data, adjustment of management, discussion with other providers, nursing nursing and ancillary staff involved in patient's care documentation, 52 Minutes Charges/Coding Visit Charges Inpatient E&M: 69409 Subs Hosp L3
[2024-12-05] MEDS: Sucralfate 1 GM Tablet PO ×3 (08:42→16:55)
[2024-12-05] MEDS: Potassium Chloride 10mEq/100mL 10 MEQ/100 ML IV.SOLN. 100 MEQ IV BOLUS ×4 (09:33→14:39)
[2024-12-05] MEDS: 0.9% Saline Lock 10 ML Syringe IV ×4 (09:38→23:27)
[2024-12-05] MEDS: Chlorthalidone 50 MG Tablet 25 MG PO (09:47)
[2024-12-05] MEDS: Metoclopramide 10 MG/2 ML Vial 5 MG IV ×4 (09:47→21:19)
[2024-12-05] MEDS: dilTIAZem CD 180 MG Capsule PO (09:48)
[2024-12-05] MEDS: Pramipexole Di-HCl 0.5 MG Tablet PO ×2 (09:48→21:13)
[2024-12-05] MEDS: DULoxetine Hcl 30 MG Capsule PO (09:48)
--- NOTE | 2024-12-05 11:04 | CASEMGMT ---
Per hospitalist rounds, pt to undergo an EGD today and likely DC tomorrow depending on GI Consult. Claudette from [facility] notified and states that SOC is now pushed back to next Monday. DC info updated.
[2024-12-05] MEDS: Pantoprazole Sodium 40 MG in 0.9% Normal Saline (100mL MB+) 100 ML 330 MG IV ×2 (11:50→21:19)
[2024-12-05] MEDS: Ceftriaxone 1 GM/50 ML BAG IV (12:30)
[2024-12-05] MEDS: ROSUVASTATIN CALCIUM 40 MG TABLET PO (21:14)
[2024-12-05] MEDS: DULoxetine Hcl 60 MG Capsule PO (21:14)
[2024-12-05] MEDS: Acetaminophen 325 MG Tablet 650 MG PO (21:19)
[2024-12-06] VITALS: BP 148/57; PULSE 84; RESP 16; TEMP 37.2; O2SAT 98
[2024-12-06] MEDS: MELATONIN 3 MG TABLET PO (00:01)
[2024-12-06 05:14] VITALS: BP 138/56; PULSE 80; RESP 17; TEMP 36.6; O2SAT 99
[2024-12-06] MEDS: Sucralfate 1 GM Tablet PO ×2 (06:20→10:48)
[2024-12-06 06:53] LABS: Absolute Lymphocyte Count 1.37 X10^3/uL (0.83-4.51); Absolute Neutrophil Count 8.4 X10^3/uL (2.0-7.7); Basophil# 0.03 X10^3/uL; Basophil% 0.3 % (0-1); Eosinophil# 0.15 X10^3/uL; Eosinophils% 1.4 % (0-5); Hematocrit 35.3 % (37-47); Hemoglobin 11.6 g/dL (12.0-15.0); Lymphocyte # 1.37 X10^3/ul (0.83-4.51); Mean Corp Hgb Conc 32.9 g/dL (32-36); Mean Corpuscular Hgb 30.9 pg (27.0-32.0); Mean Corpuscular Volume 94.1 fL (81-99); Mean Platelet Vol. 10.5 fl (6.2-12.0); Monocyte# 0.54 X10^3/uL; Monocyte% 5.1 % (0-10); NRBC Flagged by Analyzer 0 % (0-5); Neutrophil # 8.44 X10^3/uL (2.7-7.7); Neutrophil % 79.8 % (47-70); Platelet Count 161 K/mm3 (150-450); RBC Distribution Width CV 13.8 % (11.6-14.6); RBC Distribution Width SD 46.4 fl (35.1-43.9); Red Blood Count 3.75 M/mm3 (4.2-5.4); White Blood Count 10.6 K/mm3 (4.4-11.0)
--- NOTE | 2024-12-06 07:28 | PCM.PN.HOSP ---
Reason for Visit Reason for Visit: Diagnoses Unspecified abdominal pain (12/02/24) Subjective Subjective Patient had a relatively uneventful night. Plan is for patient to be assessed for discharge Objective Data Objective Data Vital Signs: Vital Signs Temp Pulse Resp BP Pulse Ox O2 Del Method 97.9 F 80 17 138/56 H 99 Room Air 12/06/24 05:14 12/06/24 05:14 12/06/24 05:14 12/06/24 05:14 12/06/24 05:14 12/06/24 05:14 Oxygen Delivery Method Room Air Weight: 63.866 kg Body Mass Index (BMI) 31.5 Intake & Output: Intake and Output for Last 24 Hours 12/04/24 12/05/24 12/06/24 23:59 23:59 23:59 Intake Total 1810 / 1810 2030 / 2030 350 / 350 Output Total 350 / 350 Balance 1810 / 1810 1680 / 1680 350 / 350 Lab / Micro Data 12/06/24 06:09 12/06/24 06:09 Labs: Laboratory Results - last 24 hr 12/06/24 06:09: WBC 10.6, RBC 3.75 L, Hgb 11.6 L, Hct 35.3 L, MCV 94.1, MCH 30.9, MCHC 32.9, RDW Std Deviation 46.4 H, RDW Coeff of Davidson 13.8, Plt Count 161, MPV 10.5, Immature Gran % (Auto) 0.400, Neut % (Auto) 79.8 H, Lymph % (Auto) 13.0 L, [place] % (Auto) 5.1, Eos % (Auto) 1.4, Baso % (Auto) 0.3, Absolute Neuts (auto) 8.4 H, Absolute Lymphs (auto) 1.37, Nucleated RBC % 0 Micro: Microbiology 12/02/24 09:35 Urine, Clean Catch Urine Culture - Final Escherichia coli 12/02/24 20:06 Mucosa - Nasopharyngeal Respiratory Panel (PCR) - Final 12/02/24 09:30 Mucosa - Nose SARS-CoV-2, Influenza & RSV (PCR) - Final 12/02/24 09:30 Stool Stool Occult Blood (SACHIN) - Final Occult Blood Positive Physical Exam Narrative GENERAL: cooperative HEENT: Atraumatic; normocephalic EYES; Anicteric, Normal Conjunctiva NECK; supple, normal thyroid, RESPIRATORY: Diminished to auscultation CARDIOVASCULAR: Regular S1 S2, GI: soft, normoactive bowel sounds, : No Renal angle tenderness; EXTREMITIES: No edema, no clubbing, MUSCULOSKELETAL: no muscle wasting NEURO: Awake; no lateralizing signs. SKIN: No Rash PSYCH; Flat affect Assessment & Plan Assessment/Plan (1) Abdominal pain: PLAN: Plan Patient is a 79-year-old lady who presented with abdominal pain with associated nausea and vomiting for 1 week admitted to regular nursing floor Abdominal pain with nausea and vomiting ? Admitted to regular nursing floor for symptom management. Patient underwent imaging studies including CT of the abdomen and pelvis as well as gallbladder ultrasound which demonstrated gallbladder sludge, GB wall 2.1 mm. Negative Crenshaw sign and no features of leukocytosis. CBD 6.3 mm. MRCP was further done which shows normal liver, GB, pancreas and spleen. CBD dilated measuring 1 cm. Consult placed to GI patient underwent EGD on 12/05/2023 findings and recommendations as below Impressions : - Normal esophagus. - Gastric glycogenic acanthosis. Biopsied. - Nodular mucosa in the entire stomach. Biopsied. - Non-bleeding gastric ulcers with no stigmata of bleeding. - Bile duodenitis. Recommendations : - Use sucralfate tablets 1 gram PO QID. - Protonix 40 mg p.o. twice daily - Reglan 5 mg p.o. 4 times daily - Continue present medications. -12/06/2024. Patient to be assessed for discharge 2. Acute cystitis with E. coli ? Patient treated with ceftriaxone 3. GERD ? On PPI 4. Hypertension ? Blood pressure controlled, home medications continued with dose adjustment as needed 5. Restless leg syndrome ? Patient is on pramipexole 6. Dyslipidemia ?Patient is on statin therapy, continued at home dose 7. Depression with anxiety - did continue home meds 8. Hypokalemia -Corrected per protocol 9. Anemia ? Secondary to chronic disorder monitoring H&H and transfuse if patient becomes symptomatic or hemoglobin falls below 7 10. Chronic back pain ? Status post L3-L5 spinal fusion on 11/21/[address] Carlos Emmanuel 11. DVT prophylaxis ? Bilateral SCDs Time spent in the patient's overall evaluation,decision-making process, review of diagnostic data, adjustment of management, discussion with other providers, nursing nursing and ancillary staff involved in patient's care documentation, 35 Minutes
[2024-12-06 07:36] LABS: Anion Gap 6 (5-15); BUN 7 mg/dL (7-18); BUN/Creat Ratio 9.2 RATIO (10-20); Calcium,Total 9.1 mg/dL (8.5-10.1); Chloride 108 mmol/L (98-107); Creatinine, Serum 0.76 mg/dL (0.55-1.02); EST Glomerular Filtration Rate 78 mL/min (>60); Est Glom Filt Rate - Afr Amer 95 mL/min (>60); Estimated Creatinine Clearance 47.57 ml/min; Glucose 91 mg/dL (74-106); Magnesium 2.1 mg/dL (1.6-2.6); Phosphorus 3.5 mg/dL (2.5-4.9); Potassium 3.5 mmol/L (3.5-5.1); Sodium Level 139 mmol/L (136-145)
--- NOTE | 2024-12-06 09:15 | DS.PCM_ITS ---
Providers Date of Admission: 12/02/24 Date of Discharge: 12/06/24 Primary Care Physician: Dr. Marcelo Borges MD Consultations 12/02/24 17:42 Consult: Gastroenterology Routine Consulting Provider: Isaiah Sorensen Reason for Consult: increase in CBD, nausea and abd pain, also FOBT + EMERGENT Consult: No MD Notified: Yes Date Notified: 12/02/24 Time Notified: 17:42 Method of Notification: Text Reason For Visit: ABD PAIN/NAUSEA Diagnosis Discharge Diagnosis (1) Abdominal pain: Status: Acute Code(s): R10.9 - Unspecified abdominal pain Plan Patient is a 79-year-old lady who presented with abdominal pain with associated nausea and vomiting for 1 week admitted to regular nursing floor Abdominal pain with nausea and vomiting ? Admitted to regular nursing floor for symptom management. Patient underwent imaging studies including CT of the abdomen and pelvis as well as gallbladder ultrasound which demonstrated gallbladder sludge, GB wall 2.1 mm. Negative Crenshaw sign and no features of leukocytosis. CBD 6.3 mm. MRCP was further done which shows normal liver, GB, pancreas and spleen. CBD dilated measuring 1 cm. Consult placed to GI patient underwent EGD on 12/05/2023 findings and recommendations as below Impressions : - Normal esophagus. - Gastric glycogenic acanthosis. Biopsied. - Nodular mucosa in the entire stomach. Biopsied. - Non-bleeding gastric ulcers with no stigmata of bleeding. - Bile duodenitis. Recommendations : - Use sucralfate tablets 1 gram PO QID. - Protonix 40 mg p.o. twice daily - Reglan 5 mg p.o. 4 times daily - Continue present medications. -12/06/2024. Patient to be assessed for discharge 2. Acute cystitis with E. coli ? Patient treated with ceftriaxone 3. GERD ? On PPI 4. Hypertension ? Blood pressure controlled, home medications continued with dose adjustment as needed 5. Restless leg syndrome ? Patient is on pramipexole 6. Dyslipidemia ?Patient is on statin therapy, continued at home dose 7. Depression with anxiety - did continue home meds 8. Hypokalemia -Corrected per protocol 9. Anemia ? Secondary to chronic disorder monitoring H&H and transfuse if patient becomes symptomatic or hemoglobin falls below 7 10. Chronic back pain ? Status post L3-L5 spinal fusion on 11/21/[address] Carlos Emmanuel 11. DVT prophylaxis ? Bilateral SCDs Time spent in the patient's overall evaluation,decision-making process, review of diagnostic data, adjustment of management, discussion with other providers, nursing nursing and ancillary staff involved in patient's care documentation, 35 Minutes Medications at Discharge Home Medications rosuvastatin 40 mg tablet 40 mg PO QHS CHOLESTEROL 06/30/21 albuterol sulfate 2.5 mg/3 mL (0.083 %) solution for nebulization 2.5 mg (3 mL) inhalation Q4H PRN SOB &/OR WHEEZING 14 days #1 mL 07/01/21 potassium chloride 20 mEq tablet,extended release(part/cryst) 40 meq (2 x 20 mEq) PO DAILY potassium #0 tabs 07/01/21 menthol 4 % topical gel (Biofreeze (menthol)) 1 applic topical DAILY PAIN 07/21/21 duloxetine 30 mg capsule,delayed release 30 mg PO QAM DEPRESSION #90 caps 06/04/24 duloxetine 60 mg capsule,delayed release 60 mg PO QHS DEPRESSION #90 caps 06/04/24 pramipexole 1 mg tablet 0.5 mg PO BID RLS 06/04/24 chlorthalidone 25 mg tablet 25 mg PO DAILY BP 08/20/24 acetaminophen 500 mg tablet 500 mg PO Q6H #30 tabs 08/29/24 diltiazem HCl 180 mg capsule,24 hr,extended release 180 mg PO DAILY 12/02/24 metoclopramide HCl 5 mg tablet (Reglan) 5 mg PO Q6H 2 weeks #56 tabs 12/06/24 pantoprazole 40 mg tablet,delayed release 40 mg PO BID #120 tabs 12/06/24 sucralfate 1 gram tablet 1 g PO TIDAC 30 days #90 tabs 12/06/24 Physical Exam Narrative GENERAL: cooperative HEENT: Atraumatic; normocephalic EYES; Anicteric, Normal Conjunctiva NECK; supple, normal thyroid, RESPIRATORY: Diminished to auscultation CARDIOVASCULAR: Regular S1 S2, GI: soft, normoactive bowel sounds, : No Renal angle tenderness; EXTREMITIES: No edema, no clubbing, MUSCULOSKELETAL: no muscle wasting NEURO: Awake; no lateralizing signs. SKIN: No Rash PSYCH; Flat affect Weight / BMI Weight Weight: 63.866 kg Body Mass Index (BMI) 31.5 ABG / Lab / Microbiology Data 12/06/24 06:09 12/06/24 06:09 Laboratory: Laboratory Results - last 24 hr 12/06/24 06:09: WBC 10.6, RBC 3.75 L, Hgb 11.6 L, Hct 35.3 L, MCV 94.1, MCH 30.9, MCHC 32.9, RDW Std Deviation 46.4 H, RDW Coeff of Davidson 13.8, Plt Count 161, MPV 10.5, Immature Gran % (Auto) 0.400, Neut % (Auto) 79.8 H, Lymph % (Auto) 13.0 L, [place] % (Auto) 5.1, Eos % (Auto) 1.4, Baso % (Auto) 0.3, Absolute Neuts (auto) 8.4 H, Absolute Lymphs (auto) 1.37, Nucleated RBC % 0, Sodium 139, Potassium 3.5, Chloride 108 H, Carbon Dioxide 25.0, Anion Gap 6, BUN 7, Creatinine 0.76, Estim Creat Clear Calc 47.57, Est GFR (MDRD) Af Amer 95, Est GFR (MDRD) Non-Af 78, BUN/Creatinine Ratio 9.2 L, Glucose 91, Calcium 9.1, Phosphorus 3.5, Magnesium 2.1 Microbiology: Microbiology 12/02/24 09:35 Urine, Clean Catch Urine Culture - Final Escherichia coli 12/02/24 20:06 Mucosa - Nasopharyngeal Respiratory Panel (PCR) - Final 12/02/24 09:30 Mucosa - Nose SARS-CoV-2, Influenza & RSV (PCR) - Final 12/02/24 09:30 Stool Stool Occult Blood (SACHIN) - Final Occult Blood Positive D/C Instructions Discharge Diet: No restrictions Discharge Activity: Return to Normal Activity Call your doctor if you observe: Fever of 101 or Higher, Shortness of breath, Fainting spells and Chest pain DC O2, CPAP, BIPAP Needs Home O2 Discharge instructions: No Meaningful Use Info Meaningful Use Meaningful Use Diagnoses (Choose all that apply): None applicable Ischemic Stroke Statin Dosing Therapy Reference: STATIN DOSE THERAPY REFERENCE: * Patients > 75 years receive moderate or high dose statin therapy. * Patients 75 years or YOUNGER should receive HIGH intensity statin dose unless contraindicated. You will be required to document reason for non-treatment if statin daily dose does not meet guidelines. HIGH DOSE STATIN THERAPY DAILY Atorvastatin > than or = to 40 mg Rosuvastatin > than or = to 20 mg Amlodipine + Atorvastatin > than or = to 2.5/40 mg Ezetimibe + Simvastatin 10/80 mg Simvastatin 80mg Discharge Plan Admission Admit Date/Time: 12/02/24 16:54 Attending Provider: Herminio Vuong Primary Care Provider: Marcelo Borges Consulting Providers: Isaiah Sorensen; Delia Ely; Diego Gr Discharge Orders/Prescriptions Prescriptions: New sucralfate 1 gram Tablet 1 g PO TIDAC 30 Days Qty: 90 0RF pantoprazole 40 mg Tablet,Delayed Release (Dr/Ec) 40 mg PO BID Qty: 120 0RF metoclopramide HCl [Reglan] 5 mg tablet 5 mg PO Q6H 14 Days Qty: 56 0RF Continued duloxetine 30 mg capsule,delayed release(DR/EC) 30 mg PO QAM Qty: 90 3RF duloxetine 60 mg capsule,delayed release(DR/EC) 60 mg PO QHS Qty: 90 2RF pramipexole 1 mg tablet 0.5 mg PO BID rosuvastatin 40 mg tablet 40 mg PO QHS albuterol sulfate 2.5 mg /3 mL (0.083 %) Solution For Nebulization 2.5 mg inhalation Q4H PRN (Reason: SOB &/OR WHEEZING) 14 Days Qty: 1 0RF potassium chloride 20 MEQ tablet 40 meq PO DAILY Qty: 0 0RF Biofreeze (menthol) 4 % Gel 1 applic TOPICAL DAILY chlorthalidone 25 mg tablet 25 mg PO DAILY acetaminophen 500 mg Tablet 500 mg PO Q6H Qty: 30 0RF diltiazem HCl 180 mg capsule,extended release 24hr 180 mg PO DAILY Discontinued lansoprazole [Prevacid] 30 MG capsule 30 mg PO DAILY meloxicam 15 mg Tablet 15 mg PO LUNCH Qty: 30 0RF Referrals / Follow Up: Marcelo Borges MD [Primary Care Provider] - Within 1 Week Disposition Disposition (needs filled in before D/C Order can be placed): Home, Self Care Charges/Coding Visit Charges Inpatient E&M: 22487 Disch Hosp >30min
--- NOTE | 2024-12-06 09:40 | CASEMGMT ---
Addendum entered by Mya Delarosa 12/06/24 09:43: [facility] notified pt will be discharging today Original Note: Pt has an order for DC placed. [facility] to start care on Monday. OSMEL ANGEL to pt room at this time. Pt aware of the SOC date and states that she is comfortable going home with her and is OK with waiting for the HH to start over the weekend. Pt denies further needs at this time and thanks this OSMEL ANGEL.
[2024-12-06] MEDS: Pramipexole Di-HCl 0.5 MG Tablet PO (10:47)
[2024-12-06] MEDS: dilTIAZem CD 180 MG Capsule PO (10:47)
[2024-12-06] MEDS: DULoxetine Hcl 30 MG Capsule PO (10:47)
[2024-12-06] MEDS: Chlorthalidone 50 MG Tablet 25 MG PO (10:47)
[2024-12-06] MEDS: Metoclopramide 10 MG/2 ML Vial 5 MG IV (10:48)
[2024-12-06] MEDS: Pantoprazole Sodium 40 MG Tablet PO (10:49)
[2024-12-06 11:36] VITALS: BP 154/53; PULSE 81; RESP 16; TEMP 36.4; O2SAT 95
--- NOTE | 2024-12-06 11:54 | PHA.DC_ITS ---
Pharmacy [place] Med Reconciliation Pharmacy Service has performed discharge medication reconciliation for this patient. Medication education papers prepared, patient discharged before I was able to investment counselor. Medications reviewed. The patient's discharge medication list was reviewed for discrepancies and discrepancies were resolved. Medications at Discharge Home Medications rosuvastatin 40 mg tablet 40 mg PO QHS CHOLESTEROL 06/30/21 albuterol sulfate 2.5 mg/3 mL (0.083 %) solution for nebulization 2.5 mg (3 mL) inhalation Q4H PRN SOB &/OR WHEEZING 14 days #1 mL 07/01/21 potassium chloride 20 mEq tablet,extended release(part/cryst) 40 meq (2 x 20 mEq) PO DAILY potassium #0 tabs 07/01/21 menthol 4 % topical gel (Biofreeze (menthol)) 1 applic topical DAILY PAIN 07/21/21 duloxetine 30 mg capsule,delayed release 30 mg PO QAM DEPRESSION #90 caps 06/04/24 duloxetine 60 mg capsule,delayed release 60 mg PO QHS DEPRESSION #90 caps 06/04/24 pramipexole 1 mg tablet 0.5 mg PO BID RLS 06/04/24 chlorthalidone 25 mg tablet 25 mg PO DAILY BP 08/20/24 acetaminophen 500 mg tablet 500 mg PO Q6H #30 tabs 08/29/24 diltiazem HCl 180 mg capsule,24 hr,extended release 180 mg PO DAILY 12/02/24 metoclopramide HCl 5 mg tablet (Reglan) 5 mg PO Q6H 2 weeks #56 tabs 12/06/24 pantoprazole 40 mg tablet,delayed release 40 mg PO BID #120 tabs 12/06/24 sucralfate 1 gram tablet 1 g PO TIDAC 30 days #90 tabs 12/06/24
== END 2024-12-06 11:37 | disposition home or self-care (01) | DRG 384 ==
LOC: ED 09:05 → MS3 17:15
PROVIDERS: Internal Medicine; Internal Medicine Gastroenterology; Admitting Provider Internal Medicine; Emergency Provider Emergency Medicine; PCP Family Medicine; Visit Provider Internal Medicine
PROC: 0DJ08ZZ Inspection of Upper Intestinal Tract, Via Natural or Artificial Opening Endoscopic (ICD-10-PCS; CPT 43235; principal; 2024-12-05 06:25)
DX: K25.9 Gastric ulcer, unspecified as acute or chronic, without hemorrhage or perforation (principal); N30.00 Acute cystitis without hematuria; N13.30 Unspecified hydronephrosis; D63.8 Anemia in other chronic diseases classified elsewhere; I10 Essential (primary) hypertension; F32.A Depression, unspecified; G25.81 Restless legs syndrome; K29.80 Duodenitis without bleeding; E87.6 Hypokalemia; E78.00 Pure hypercholesterolemia, unspecified; K21.9 Gastro-esophageal reflux disease without esophagitis; M19.90 Unspecified osteoarthritis, unspecified site; F41.9 Anxiety disorder, unspecified; K31.89 Other diseases of stomach and duodenum; R19.8 Other specified symptoms and signs involving the digestive system and abdomen; Z87.891 Personal history of nicotine dependence; B96.20 Unspecified Escherichia coli [E. coli] as the cause of diseases classified elsewhere; Z79.899 Other long term (current) drug therapy; Z96.649 Presence of unspecified artificial hip joint; Z96.659 Presence of unspecified artificial knee joint
CPT/HCPCS: 36415; 71275; 74174; 74181; 76705; 80048; 80053; 81001; 82274; 83690; 83735; 84100; 85025; 87077; 87086; 87088; 87186; 87631; 87633; 88305; 88342; 97116; 97162; 97166; 97530; 97535; 99285; Q9967; A4216; J2405

== ENCOUNTER → 2025-01-06 | Outpatient (CLI) | payer MEDICARE, SELFPAY | END | disposition home or self-care (01) | LOC: LABSPEC 12:30 | PROVIDERS: PCP Family Medicine; Visit Provider Physician Assistant | DX: R30.9 Painful micturition, unspecified (principal) | CPT/HCPCS: 87086; 87088; 87186 ==

== ENCOUNTER → 2025-03-06 | Outpatient (CLI) | payer MEDICARE, SELFPAY ==
--- NOTE | 2025-03-06 07:45 | NM_ITS ---
PROCEDURE: GASTRIC EMPTYING STUDY - 4 HR 03/06/2025 REASON FOR EXAM: NAUSEA AND VOMITING COMPARISON: None. TECHNIQUE: The patient ingested a standard meal of 2 eggs sandwiches and 1.2 mCi of technetium labeled sulfur colloid, and water. There was no vomiting postprandially. Anterior and posterior planar images of the upper abdomen were obtained for 1 minute immediately following the meal at 1h, 2h and 4h if more than 10% of the activity persisted within the stomach. Regions of interest were drawn, and a geometric mean was used to calculate a [id number]. RADIOPHARMACEUTICAL: 1.2 mCi of technetium labeled sulfur colloid. FINDINGS: Percent activity remaining in stomach: 1 hour 70 % (normal 37-90%) 2 hours: 54 % (normal 30-60%) 4 hours: 29 % (normal 0-10%) NM/Gastric Emptying Study - 4 HR IMPRESSION: Delayed gastric emptying. Reading Location: [place] [id number]
== END | disposition home or self-care (01) ==
PROVIDERS: PCP Family Medicine; Referring Provider Nurse Practitioner Acute Care; Visit Provider Nurse Practitioner Acute Care
DX: R63.4 Abnormal weight loss (principal); R11.2 Nausea with vomiting, unspecified
CPT/HCPCS: 78264; A9541

== ENCOUNTER → 2025-03-13 | Outpatient (CLI) | payer MEDICARE, SELFPAY | END | disposition home or self-care (01) | LOC: LABSPEC 15:15 | PROVIDERS: PCP Family Medicine; Referring Provider Urology; Visit Provider Urology | DX: R30.0 Dysuria (principal) | CPT/HCPCS: 87077; 87086; 87088 ==

== ENCOUNTER 2025-03-19 07:19 | Day surgery (SDC) | payer MEDICARE, SELFPAY ==
--- NOTE | 2025-03-18 11:33 | PAT.ANE_ITS ---
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 When Was Last Pacemaker Check QUESTION #4 FULL TEXT: You/Your Family Experience fever (hyperthermia) with Anesthesia Last Oral Intake Last Oral intake: Last Oral Intake NPO since Meds taken in AM with sips of water? 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 Has anyone observed you stop No 03/18/25 10:29 breathing during sleep? STOP Results Negative 03/18/25 10:29 QUESTION #5 FULL TEXT : Do you snore loudly (louder than talking or can be heard through closed doors)? 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 Specify any problems Hx of Preganancy in last 3 No 03/18/25 10:29 Months [facility] 03/18/25 10:29 & Questions: Date: 03/18/25 03/18/25 10:29 Time: 10:33 03/18/25 10:29 Patient unable to answer at this time (ie. 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 Hx Now No 03/18/25 10:29 Gestational Age (in weeks): EDC: Hx Hx Para Hx Section SAB No 12/05/24 05:34 PFSH Medical History (Updated 03/18/25 @ 10:40 by Madison Luther) Depression Ambulates with cane Bladder disease History of renal disease Dietary restriction History of edema Nausea & vomiting Leg cramps Wears hearing aid Post-menopausal Kidney stones DVT (deep venous thrombosis) Restless legs Back pain Injury of head and neck Gastric reflux Former smoker Shortness of breath on exertion History of pain when walking History of stress test Hypertension Transaminitis Acute on chronic respiratory failure with hypoxemia Acute respiratory failure GERD (gastroesophageal reflux disease) Former smoker High cholesterol Arthritis Osteoarthritis History of blood clots Home Medications ?Medication ?Instructions ?Recorded ?Last Taken ?Type rosuvastatin 40 mg tablet 40 mg PO QHS CHOLESTEROL 08/27/24 History potassium chloride 20 mEq 40 meq (2 x 20 mEq) PO DAILY 07/01/21 08/27/24 Rx tablet,extended release(part/cryst) potassium #0 tabs menthol 4 % topical gel (Biofreeze 1 applic topical DA GARETT PAIN 07/21/21 Unknown History (menthol)) pramipexole 1 mg tablet 0.5 mg PO BID RLS 06/04/24 1 History diltiazem HCl 180 mg capsule,24 180 mg PO DAILY Unknown History hr,extended release pantoprazole 40 mg tablet,delayed 40 mg PO BID #120 ta bs 12/06/24 Unknown Rx release sucralfate 1 gram tablet 1 g PO TIDAC 30 days #90 tab s 01/20/25 Unknown Rx ondansetron HCl 4 mg tablet 4 mg PO .COMPLEX #5 tabs 0 01/29/25 Unknown Rx duloxetine 60 mg capsule,delayed 60 mg PO BID #180 cap s 03/04/25 Unknown Rx release leucovorin 4 mg-pyridoxal 1 tab-cap PO QDAY #90 tabs 0 03/04/25 Unknown Rx phosphate 50 mg-mecobalamin 2 mg tablet (Folinic-Plus) cholecalciferol (vitamin D3) 25 25 mcg PO DAILY Unknown History mcg (1,000 unit) capsule (Vitamin D3) vitamin B complex 1 cap PO DAILY 03/18/25 Unkn own History Allergy/AdvReac Type Severity Reaction Status Date / Time meperidine HCl (From Demerol) Allergy Severe Swelling Verified 03/18/25 10:22 poison adelaide extract (Poison Allergy Rash Verified 03/18/25 10:22 Adelaide Extract) atorvastatin calcium (From AdvReac Upset Verified 03/18/25 10:22 Lipitor) Stomach cefaclor (From Ceclor) AdvReac PALPITATIONS, Verified 03/18/25 10:22 CHEST PRESSURE, SHORT OF BREATH doxycycline AdvReac Upset Verified 03/18/25 10:22 Stomach hydrocodone AdvReac Upset Verified 03/18/25 10:22 Stomach Family History Mother Arthritis CVA (cerebral vascular accident) Father Myocardial infarction Heart disease Hypertension High cholesterol Surgical History (Updated 03/18/25 @ 10:30 by Madison Luther) History of appendectomy History of tonsillectomy Hx of colonoscopy Hx of bilateral breast reduction surgery Hx of surgical procedure History of hip replacement History of toe surgery History of renal stent History of cataract surgery History of knee replacement History of extraction of renal calculus History of carotid endarterectomy History of gzvfn-[id number] bypass Social History Smoking Status: Former smoker Tobacco: How many years used: 40 Electronic Cigarette Use: not used how long ago did patient quit smokin years ago second hand exposure: No alcohol intake: current alcohol intake frequency: holidays/special occasions only substance use type: does not use alan/restoration: None seatbelt use: sometimes Audit: Pertinent Findings Pertinent Findings EKG Perinent findings: 07/21/2021. Normal sinus rhythm. Stress test pertinent findings: 11/07/2024. Ejection fraction 73%. No ischemia. No previous infarct. Recommendation Anesthesia Recommendation Anesthesia recommendation: OPTIMIZED for anesthesia
[2025-03-19] VITALS (7 sets, daily range): BP systolic 98–146; BP diastolic 49–83; PULSE 75–84; RESP 16; TEMP 36.5–36.6; O2SAT 97–100; BMI 27.3
[2025-03-19] MEDS: Lactated Ringers 1,000 ML 15 ML IV (08:06)
--- NOTE | 2025-03-19 08:23 | PCM.PRE.AN2 ---
ASA Classification* ASA Classification ASA Classification: 2 (Please avoid versed. HTN, GERD, HLD. ) Assessment & Plan Anesthesia* Anesthesia Assessment Anesthesia Assessment: Discussed sedation and/or anesthesia options, risks, benefits, and alternatives with patient/parents/legal guardian/POA. Questions invited. The patient/parents/legal guardian/POA seems to understand and agrees to proceed with anesthesia plan. Reviewed the physical assessment, medical history, allergy history and patient home medications list prior to surgery/procedure/anesthetic and documented any changes. Performed airway and anesthesia risk assessments. Anesthesia Type Anesthesia Type: General History Source History Obtained from:: Patient and Chart Anesthesia Focused Assessment* Temperature: 97.8 F Pulse Rate: 75 Blood Pressure: 146/62 Respiratory Rate: 16 Pulse Ox: 99 Airway Assessment Mouth opens: >3 cm Mallampati Score: II Teeth Condition: Intact and Chipped/Broken (front chipped) Neck Range of motion (ROM): Full ROM Focused Labs Anesthesia Preop lab: CBC WBC 10.6 K/mm3 (4.4-11.0) 12/06/24 06:09 12/06/24 RBC 3.75 M/mm3 (4.2-5.4) L 12/06/24 06:09 12/06/24 Hgb 11.6 g/dL (12.0-15.0) L 12/06/24 06:09 12/06/24 Hct 35.3 % (37-47) L 12/06/24 06:09 12/06/24 Plt Count 161 K/mm3 (150-450) 12/06/24 06:09 12/06/24 CHEMISTRY Potassium 3.5 mmol/L (3.5-5.1) 12/06/24 06:09 12/06/24 Sodium 139 mmol/L (136-145) 12/06/24 06:09 12/06/24 Magnesium 2.1 mg/dL (1.6-2.6) 12/06/24 06:09 12/06/24 Phosphorus 3.5 mg/dL (2.5-4.9) 12/06/24 06:09 12/06/24 BUN 7 mg/dL (7-18) 12/06/24 06:09 12/06/24 Creatinine 0.76 mg/dL (0.55-1.02) 12/06/24 06:09 12/06/24 Glucose 91 mg/dL (74-106) 12/06/24 06:09 12/06/24 POC Glucose 157 mg/dL (74-106) H 08/28/24 06:27 08/28/24 TSH 1.47 uIU/mL (0.358-3.74) 02/08/21 09:47 02/08/21 COAG PT 12.9 SECONDS (11.7-14.9) 09/02/17 18:15 09/02/17 Pre-Assessment Diagnosis/Proposed Procedure Planned Operative Procedure(s): EGD, COLONOSCOPY Anesthesia History Anesthesia History - outpatient program coordinator: Anesthesia History - outpatient program coordinator Hx Hospitalization Yes: STOMACH 03/18/25 10:29 Any Problems With Anesthesia No 03/18/25 10:29 Cholinesterase deficiency No 03/18/25 10:29 You/Your Family Experience No 03/18/25 10:29 fever (hyperthermia) with Relationship Recent Exposure to Contagious No 03/19/25 07:49 Disease Does patient have nerve No 03/18/25 10:29 stimulator Patient instructed to have device shut off --Does patient have Pacemaker No 03/19/25 07:49 or ICD? When Was Last Pacemaker Check QUESTION #4 FULL TEXT: You/Your Family Experience fever (hyperthermia) with Anesthesia Last Oral Intake Last Oral intake: Last Oral Intake NPO since 04:00 03/19/25 07:49 Meds taken in AM with sips of Yes 03/19/25 07:49 water? Meds patient instructed to take am of surgery PONV PONV - outpatient program coordinator: PONV - outpatient program coordinator Female Yes 03/18/25 10:29 HX of Motion Sickness No 03/18/25 10:29 HX of N/V After Surgery No 03/18/25 10:29 Non-Smoker Yes 03/18/25 10:29 Duration of Surgery greater No 03/18/25 10:29 than 60 minutes Number of Risk Factors 2 03/18/25 10:29 PONV Score Moderate Risk 03/18/25 10:29 Height & Weight Height & Weight: Anesthesia: Height & Weight Height 4 ft 8 in 03/19/25 07:49 Weight: 55.3 kg 03/19/25 07:49 Body Mass Index (BMI) 27.3 03/19/25 07:49 Respiratory Assessment Respiratory Assessment - outpatient program coordinator: Respiratory Tract Infection Hx - outpatient program coordinator Hx Respiratory Tract Infection No 03/18/25 10:29 STOP Sleep Apnea STOP Sleep Apnea - outpatient program coordinator: STOP Sleep Apnea - outpatient program coordinator Hx Hypertension Yes 03/18/25 10:29 Hx Sleep Apnea No 03/18/25 10:29 CPAP No 01/27/25 07:57 BIPAP No 01/27/25 07:57 Do you snore loudly (louder No 03/18/25 10:29 than talking or can be heard Do you often feel tired/ No 03/18/25 10:29 fatigued/ sleepy during daytime? Has anyone observed you stop No 03/18/25 10:29 breathing during sleep? STOP Results Negative 03/18/25 10:29 QUESTION #5 FULL TEXT : Do you snore loudly (louder than talking or can be heard through closed doors)? 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 - outpatient program coordinator: Tobacco Use History - outpatient program coordinator Tobacco Use Non-smoker 01/27/25 07:57 Smoking Status Former smoker 03/18/25 10:29 Hx Tobacco Use No 03/18/25 10:29 Years Smoking Packs Smoked per Day Smoking Cessation Date was No - quit smoking greater 03/18/25 10:29 within the last 15 years than 15 years ago Hx Smoking Cessation Date 11/13/00 03/18/25 10:29 Hx Smoking Cessation No 03/18/25 10:29 Counseling Hematologic Medial History Hematologic Hx - outpatient program coordinator: Hematologic Medical Hx - musculoskeletal physician Hx of Blood Transfusion No 03/18/25 10:29 Hx of Transfusion in last 3 No 03/18/25 10:29 Months Date of Last Transfusion (if within last 3 months) Ever experience any problems No 03/18/25 10:29 with transfusion(s)? Specify any problems Hx of Preganancy in last 3 No 03/18/25 10:29 Months Nurse Filling Out Transfusion [facility] 03/18/25 10:29 & Questions: Date: 03/18/25 03/18/25 10:29 Time: 10:33 03/18/25 10:29 Patient unable to answer at this time (ie. confused, unrespo /Reproduction History /Reproductive History - outpatient program coordinator: /Reproductive Hx- outpatient program coordinator Hx Now No 03/18/25 10:29 Gestational Age (in weeks): EDC: Hx Hx Para Hx Section SAB No 01/27/25 07:57 Active Medications Active Medications: Current Medications Generic Name Dose Route Start Last Admin Trade Name Freq PRN Reason Stop Dose Admin Lactated Ringer's 1,000 mls @ 15 mls/hr 03/19/25 07:45 03/19/25 08:06 IV 15 mls/hr .Q48H LETA Administration PFSH Medical History (Updated 03/18/25 @ 10:40 by Madison Luther) Depression Ambulates with cane Bladder disease History of renal disease Dietary restriction History of edema Nausea & vomiting Leg cramps Wears hearing aid Post-menopausal Kidney stones DVT (deep venous thrombosis) Restless legs Back pain Injury of head and neck Gastric reflux Former smoker Shortness of breath on exertion History of pain when walking History of stress test Hypertension Transaminitis Acute on chronic respiratory failure with hypoxemia Acute respiratory failure GERD (gastroesophageal reflux disease) Former smoker High cholesterol Arthritis Osteoarthritis History of blood clots Home Medications ?Medication ?Instructions ?Recorded ?Last Taken ?Type rosuvastatin 40 mg tablet 40 mg PO QHS CHOLESTEROL 06/30/21 08/27/24 History potassium chloride 20 mEq 40 meq (2 x 20 mEq) PO DAILY 07/01/21 08/27/24 Rx tablet,extended release(part/cryst) potassium #0 tabs menthol 4 % topical gel (Biofreeze 1 applic topical DAILY PAIN 07/21/21 Unknown History (menthol)) pramipexole 1 mg tablet 0.5 mg PO BID RLS 06/04/24 08/28/24 History diltiazem HCl 180 mg capsule,24 180 mg PO DAILY 12/02/24 03/19/25 06:00 History hr,extended release pantoprazole 40 mg tablet,delayed 40 mg PO BID #120 tabs 12/06/24 Unknown Rx release sucralfate 1 gram tablet 1 g PO TIDAC 30 days #90 tabs 01/20/25 Unknown Rx ondansetron HCl 4 mg tablet 4 mg PO .COMPLEX #5 tabs 01/29/25 Unknown Rx duloxetine 60 mg capsule,delayed 60 mg PO BID #180 caps 03/04/25 Unknown Rx release leucovorin 4 mg-pyridoxal 1 tab-cap PO QDAY #90 tabs 03/04/25 Unknown Rx phosphate 50 mg-mecobalamin 2 mg tablet (Folinic-Plus) cholecalciferol (vitamin D3) 25 25 mcg PO DAILY 03/18/25 Unknown History mcg (1,000 unit) capsule (Vitamin D3) vitamin B complex 1 cap PO DAILY 03/18/25 Unknown History Allergy/AdvReac Type Severity Reaction Status Date / Time meperidine HCl (From Demerol) Allergy Severe Swelling Verified 03/19/25 07:48 poison adelaide extract (Poison Allergy Rash Verified 03/19/25 07:48 Adelaide Extract) atorvastatin calcium (From AdvReac Upset Verified 03/19/25 07:48 Lipitor) Stomach cefaclor (From Ceclor) AdvReac PALPITATIONS, Verified 03/19/25 07:48 CHEST PRESSURE, SHORT OF BREATH doxycycline AdvReac Upset Verified 03/19/25 07:48 Stomach hydrocodone AdvReac Upset Verified 03/19/25 07:48 Stomach Family History Mother Arthritis CVA (cerebral vascular accident) Father Myocardial infarction Heart disease Hypertension High cholesterol Surgical History (Updated 03/18/25 @ 10:30 by Madison Luther) History of appendectomy History of tonsillectomy Hx of colonoscopy Hx of bilateral breast reduction surgery Hx of surgical procedure History of hip replacement History of toe surgery History of renal stent History of cataract surgery History of knee replacement History of extraction of renal calculus History of carotid endarterectomy History of bcsmz-dpqmy-llmplln bypass Social History Smoking Status: Former smoker Tobacco: How many years used: 40 Electronic Cigarette Use: not used how long ago did patient quit smokin years ago second hand exposure: No alcohol intake: current alcohol intake frequency: holidays/special occasions only substance use type: does not use alan/religious: None seatbelt use: sometimes Review of Systems (Anesthesia) ROS Narrative System reviewed and no additional complaints, except as documented. Physical Exam Const alert, oriented x3 and average body habitus Resp normal respiratory effort, normal air movement and clear to auscultation bilaterally Cardio regular rate, regular rhythm, no murmurs and diaphoretic
--- NOTE | 2025-03-19 08:30 | COLBX_PTH ---
PATIENT: TREY CALVERT LOC: EN U#:[id number] AGE/SX: 80/F ROOM: RE03/19/[address]: Dr. Isaiah Sorensen DO : 1945 BED: DIS: 03/19/2025 SPEC #: [id number] RECD: 03/19/25 09:38 STATUS: RACQUEL YIN #: [id number] TONY: 03/19/25 08:[address]: Isaiah Sorensen DEPT: SURGICAL PATHOLOGY RECD BY: Mihir Gaytan ENTERED: 03/19/25 10:46 SP TYPE: COLON BX OTHR DR: Dr. Marcelo Borges MD Tissues: A - Gastric mucous membrane B - SPLENIC FLEXURE C - Transverse colon D - Ascending colon E - Cecum, NOS Procedures: Immunohistochemical Stains Surgery Specimen Level IV HEADER OPERATION: Colonoscopy with biopsy and polypectomy, bipolar probe EGD PRE-OP DIAGNOSIS: Nausea/vomiting, weight loss TISSUE SUBMITTED: A- Gastric ulcer biopsy, B- Splenic flexure polyp, C- Transverse colon polyp biopsy, D- Ascending colon polyp biopsy, E- Cecum polyp biopsy MICROSCOPIC DIAGNOSIS A. Stomach, gastric ulcer, biopsy: * Antral and oxyntic mucosa with mild chronic focal active inflammation with focal surface erosion and reactive changes (See note) Note: The immunostain for Helicobacter pylori organism is in progress and will be reported as an addendum B. Colon, splenic flexure, polyp, biopsy: * Tubular adenoma C. Transverse colon, polyp, biopsy: * Tubular adenoma D. Ascending colon, polyp, biopsy: * Tubular adenoma E. Colon, cecum, polyp, biopsy: * Tubular adenoma MICROSCOPIC DESCRIPTION Slides are reviewed. GROSS DESCRIPTION A. Received in formalin in a container labeled with the patient's name, date of , and gastric ulcer biopsy are multiple rizo-pink fragments of mucosal tissue measuring 0.7 x 0.5 x 0.2 cm in aggregate. Submitted in toto in A1. B. Received in formalin in a container labeled with the patient's name, date of , and splenic flexure polyp are 2 rizo-pink fragments of mucosal tissue measuring 0.3 x 0.2 x 0.1 cm and 0.4 x 0.3 x 0.3 cm. Submitted in toto in B1. C. Received in formalin in a container labeled with the patient's name, date of , and transverse colon polyp is a 0.5 x 0.2 x 0.2 cm strip of rizo-pink mucosal tissue. Submitted in toto in C1. D. Received in formalin in a container labeled with the patient's name, date of , and ascending colon polyp biopsy is a 0.5 x 0.3 x 0.3 cm fragment of rizo-pink mucosal tissue. Submitted in toto in D1. E. Received in formalin in a container labeled with the patient's name, date of , and cecum polyp biopsy are 2 rizo-pink fragments of mucosal tissue each measuring 0.3 x 0.3 x 0.3 cm. Submitted in toto in E1. [facility] 03-19-[address] [facility]:[id number] ADDENDUM ADDENDUM 03/20/2025 15:44 ADDENDUM 03/20/2025 15:44 ADDENDUM 03/20/2025 15:44 ADDENDUM 03/20/2025 15:44 ADDENDUM 03/20/2025 15:44 The Helicobacter pylori immunostain is negative
--- NOTE | 2025-03-19 08:31 | PCM.HP.STD ---
HPI - General General Date of Admission: 03/19/25 Date of Service: 03/19/25 Chief Complaint: abdominal pain, weight loss and h/o polyps [facility] Narrative TREY CALVERT, is a 80 F who presents with abdominal pain, weight loss and h/o polyps OV 12/18/2024 79y/o female presents for hospital follow-up. She was admitted to [facility] 12/02/2024 through 12/06/2024 and seen by GI for dilated CBD, nausea, abdominal pain and FOBT+. Labs on admission revealed a T. Bili of 1.2 with normal transaminases. CTA revealed mild distension of the GB, ABD US revealed a mildly dilated CBD at 6.3mm and MRCP revealed CBD 1cm. CBD dilation may be a benign age-related change with absence the of jaundice, epigastric/RUQ abdominal pain, pruritus, normal transaminases and bilirubin. She is seen in the office today with her and reports when she presented to ED on 12/02/2023 she was experiencing lower mid/pelvic abdominal pain. She was found to have acute cystitis with E. Coli. She denies any epigastric abdominal pain or RUQ pain. She reports resolution of nausea with increase in appetite since starting sucralfate TID. She had back surgery 08/2024 and hip replacement 11/25/2024 and was taking Celebrex daily prior to admission. She denies the use of any narcotic pain medication; as these have the potential for causing CBD dilation. She reports she is scheduled for ERCP in [place] arranged by her PCP on 12/31/2024. I have asked her to start pantoprazole BID and continue sucralfate TID. She will repeat EGD in three months. In regards to ERCP scheduled 12/31/2024 at [facility]. I have reviewed with Dr. Sorensen and he agrees with normal transaminases, absence or RUQ pain, jaundice, and pruritus the risks of ERCP likely outweigh the benefits at this time. Weight loss is likely secondary to poor PO intake secondary to gastritis as she reports resolution of nausea and increased appetite with sucralfate TID. I recommend holding off on ERCP at this time and if she has ongoing weight loss or develops new symptoms we can do further evaluation and possible ERCP at time of EGD in 3 months. Patient Instructions: - Continue Carafate three times a day before meals. Avoid taking any other medications within 2 hours before or after you take Carafate. Sucralfate can make it harder for your body to absorb other medications you take by mouth. - Start pantoprazole 40mg twice a day, take 30 minutes before breakfast and dinner - Do not take metoclopramide - Monitor weight at home and contact office with any additional weight loss LABS 12/06/2024 HGB 11.6 12/04/2024 HGB 10.7 12/02/2024 occult stool positive 08/29/2024 HGB 12.1 EGD 12/05/2024 - H. pylori negative - Normal esophagus. - Gastric glycogenic acanthosis. Biopsied. - Nodular mucosa in the entire stomach. Biopsied. - Non-bleeding gastric ulcers with no stigmata of bleeding. - Bile duodenitis. - Use sucralfate tablets 1 gram PO QID. - Protonix 40 mg p.o. twice daily - Reglan 5 mg p.o. 4 times daily MRCP 12/02/2024 Dilated common bile duct. No stones are identified. ABD US 12/02/2024 CBD 6.3mm COLON 2020 - Preparation of the colon was fair. - Non-thrombosed external hemorrhoids, non-thrombosed internal hemorrhoids and internal hemorrhoids that prolapse with straining, but spontaneously regress to the resting position (Grade II) found on digital rectal exam. - Diverticulosis in the sigmoid colon and in the descending colon. - Carafate is wonderful - she reports two episodes of emesis after eating at [employer] on her birthday - she reports only 2 episodes of vomiting, her reports a lot more than that - usually happens right after dinner - states the emesis has slowed down since admission but reports she is vomiting once every 2 weeks - has vomiting right before the episodes of emesis - reports she is eating a little bit more - reports she is very hungry but then can only eat a little bit before feeling very full - she is not diabetic - reports her bowels are tying to get back to normal - yesterday had 2 BM, this is an improvement from - weight loss 132 on 12/18/2024 down to 121 today [facility] Medical History Depression Ambulates with cane Bladder disease History of renal disease Dietary restriction History of edema Nausea & vomiting Leg cramps Wears hearing aid Post-menopausal Kidney stones DVT (deep venous thrombosis) Restless legs Back pain Injury of head and neck Gastric reflux Former smoker Shortness of breath on exertion History of pain when walking History of stress test Hypertension Transaminitis Acute on chronic respiratory failure with hypoxemia Acute respiratory failure GERD (gastroesophageal reflux disease) Former smoker High cholesterol Arthritis Osteoarthritis History of blood clots Home Medications ?Medication ?Instructions ?Recorded ?Last Taken ?Type rosuvastatin 40 mg tablet 40 mg PO QHS CHOLESTEROL 06/30/21 08/27/24 History potassium chloride 20 mEq 40 meq (2 x 20 mEq) PO DAILY 07/01/21 08/27/24 Rx tablet,extended release(part/cryst) potassium #0 tabs menthol 4 % topical gel (Biofreeze 1 applic topical DAILY PAIN 07/21/21 Unknown History (menthol)) pramipexole 1 mg tablet 0.5 mg PO BID RLS 06/04/24 08/28/24 History diltiazem HCl 180 mg capsule,24 180 mg PO DAILY 12/02/24 03/19/25 06:00 History hr,extended release pantoprazole 40 mg tablet,delayed 40 mg PO BID #120 tabs 12/06/24 Unknown Rx release sucralfate 1 gram tablet 1 g PO TIDAC 30 days #90 tabs 01/20/25 Unknown Rx ondansetron HCl 4 mg tablet 4 mg PO .COMPLEX #5 tabs 01/29/25 Unknown Rx duloxetine 60 mg capsule,delayed 60 mg PO BID #180 caps 03/04/25 Unknown Rx release leucovorin 4 mg-pyridoxal 1 tab-cap PO QDAY #90 tabs 03/04/25 Unknown Rx phosphate 50 mg-mecobalamin 2 mg tablet (Folinic-Plus) cholecalciferol (vitamin D3) 25 25 mcg PO DAILY 03/18/25 Unknown History mcg (1,000 unit) capsule (Vitamin D3) vitamin B complex 1 cap PO DAILY 03/18/25 Unknown History Allergy/AdvReac Type Severity Reaction Status Date / Time meperidine HCl (From Demerol) Allergy Severe Swelling Verified 03/19/25 07:48 poison adelaide extract (Poison Allergy Rash Verified 03/19/25 07:48 Adelaide Extract) atorvastatin calcium (From AdvReac Upset Verified 03/19/25 07:48 Lipitor) Stomach cefaclor (From Ceclor) AdvReac PALPITATIONS, Verified 03/19/25 07:48 CHEST PRESSURE, SHORT OF BREATH doxycycline AdvReac Upset Verified 03/19/25 07:48 Stomach hydrocodone AdvReac Upset Verified 03/19/25 07:48 Stomach Family History Mother Arthritis CVA (cerebral vascular accident) Father Myocardial infarction Heart disease Hypertension High cholesterol Surgical History History of appendectomy History of tonsillectomy Hx of colonoscopy Hx of bilateral breast reduction surgery Hx of surgical procedure History of hip replacement History of toe surgery History of renal stent History of cataract surgery History of knee replacement History of extraction of renal calculus History of carotid endarterectomy History of uxicc-yteid-vbynnyx bypass Social History Smoking Status: Former smoker Tobacco: How many years used: 40 Electronic Cigarette Use: not used how long ago did patient quit smokin years ago second hand exposure: No alcohol intake: current alcohol intake frequency: holidays/special occasions only substance use type: does not use alna/muslim: None seatbelt use: sometimes ROS Constitutional Constitutional: Denies fatigue, fever(s), poor appetite, weight gain or weight loss Gastrointestinal Gastrointestinal: Denies belching, bloating, change in bowel habits, change in stool character, chewing difficulty, coffee ground emesis, constipation, cramping, diarrhea, dyspepsia, dysphagia, early satiety, excessive flatus, fecal incontinence, heartburn, hematemesis, hematochezia, hemorrhoids, loose stools, melena, nausea, odynophagia, rectal bleeding, tenesmus, vomiting or weight changes Vital Signs Vital Signs Vital Signs: 03/19/25 07:49 03/19/25 07:49 03/19/25 08:31 Temperature 97.8 F 97.8 F Temperature Source Temporal Pulse Rate 75 75 Respiratory Rate 16 16 Respiratory Pattern Normal Blood Pressure 146/62 H 146/62 H Blood Pressure Mean 90 Blood Pressure Source Monitor Blood Pressure Position Semi-Fowlers Blood Pressure Location Right Arm Pulse Ox 99 99 Oxygen Delivery Method Room Air Weight Weight: 121 lb 14.65 oz Body Mass Index (BMI) 27.3 Physical Exam Const alert, oriented x3, no apparent distress and healthy appearing General Appearance: cooperative GI normal to inspection, nondistended, normoactive bowel sounds, soft to palpation, non-tender and non-distended Percussion: normal to percussion Rectal Exam: deferred Assessment & Plan Assessment/Plan (1) Weight loss: (2) Gastritis: (3) Personal history of colonic polyps: PLAN: Assessment and Plan Assessment and Plan (1) Nausea & vomiting: Status: Acute (2) Weight loss: Status: Acute Orders: Orders Gastric Emptying Study - 4 HR Today SHRADDHA Ricci R11.2 - Nausea with vomiting, unspecified, R63.4 - Abnormal weight loss Colonoscopy 03/19/25 SHRADDHA Ricci R11.2 - Nausea with vomiting, unspecified, R63.4 - Abnormal weight loss Medications: New peg 3350-sod sulf,ylos-ltl-ryc 178.7-7.3-0.5 gram (Suflave) PO 2 mL 0RF SHRADDHA Ricci ondansetron HCl 4 mg orally; take two tablets PO two hours prior to start of bowel prep and one every 4 hours as needed for N/V 5 tabs 0RF SHRADDHA Ricci Changed From acetaminophen 500 mg PO Q6H 30 tabs 0RF To acetaminophen 500 mg PO Q6H PRN GEORGIA Castillo Plan 80y/o female presents for follow-up with continued weight loss. Her weight is down 11lbs in the past month. She reports an increase in PO intake and decrease in frequency of emesis. She is scheduled for an EGD in March and we will plan to proceed with a colonoscopy at that time as well. I have also ordered a GES. I have encouraged increased caloric intake with Boost/Ensure daily. Patient Instructions: Boost or Ensure 1-2x a day GES Colon with EGD in March
--- NOTE | 2025-03-19 09:25 | PCM.POST.ANE ---
Anesthesia: Postop Eval I Current Vital Signs Temperature: 97.8 F Pulse Rate: 81 Blood Pressure: 101/83 Respiratory Rate: 16 Pulse Ox: 97 Oxygen Delivery Method: Room Air Assessment Airway patent: Yes Spontaneous unlabored respirations: Yes Mental status: Awake and Calm nausea: No Vomiting: No Anesthesia Complication: No Fluid Hydration Crystalloid volume administer (ml): 500 Total IV fluid infused: 500 Progress Note Anesthesia document: Postop Eval 1 completed: Yes
--- NOTE | 2025-03-19 09:28 | OP.CCLET_ITS ---
03/19/2025 Marcelo Borges MD Re : Upper GI endoscopy procedure for Joyce Hurst Dear Dr. Borges This procedure was performed on Wednesday, March 19, 2025. My impressions and recommendations are as follows: Impressions : - Normal esophagus. - Small hiatal hernia. - Non-bleeding gastric ulcers with no stigmata of bleeding. Biopsied. - Chronic duodenitis. Recommendations : - Discharge patient to home. - Resume previous diet. - Continue present medications. - Await pathology results. My findings are described in the full procedure note, which is enclosed. If I can be of further assistance, please feel free to contact me at . Sincerely, Isaiah Sorensen, 03/19/2025 9:28:17 AM This report has been signed electronically.
--- NOTE | 2025-03-19 09:28 | OP.EGD_ITS ---
Patient Name: Joyce Hurst Procedure Date: 03/19/2025 8:38 AM Date of : 1945 Age: 80 Procedure: Upper GI endoscopy Indications: Epigastric abdominal pain, Iron deficiency anemia Providers: Isaiah Sorensen DO Referring MD: Marcelo Borges MD Medicines: Monitored Anesthesia Care Patient Profile: This is an 80 year old female. Refer to note in patient chart for documentation of history and physical. Patient has symptoms of chronic epigastric abdominal pain, chronic dyspepsia and chronic nausea. Complications: No immediate complications. Procedure: Pre-Anesthesia Assessment: - Prior to the procedure, a History and Physical was performed, and patient medications and allergies were reviewed. The patient is competent. The risks and benefits of the procedure and the sedation options and risks were discussed with the patient. All questions were answered and informed consent was obtained. Patient identification and proposed procedure were verified by the physician in the pre-procedure area. Mental Status Examination: alert and oriented. Airway Examination: normal oropharyngeal airway and neck mobility. Respiratory Examination: clear to auscultation. CV Examination: normal. Prophylactic Antibiotics: The patient does not require prophylactic antibiotics. Prior Anticoagulants: The patient has taken no anticoagulant or antiplatelet agents except for NSAID medication. ASA Grade Assessment: II - A patient with mild systemic disease. After reviewing the risks and benefits, the patient was deemed in satisfactory condition to undergo the procedure. The anesthesia plan was to use monitored anesthesia care (MAC). Immediately prior to administration of medications, the patient was re-assessed for adequacy to receive sedatives. The heart rate, respiratory rate, oxygen saturations, blood pressure, adequacy of pulmonary ventilation, and response to care were monitored throughout the procedure. The physical status of the patient was re-assessed after the procedure. After obtaining informed consent, the endoscope was passed under direct vision. Throughout the procedure, the patient's blood pressure, pulse, and oxygen saturations were monitored continuously. The Colonoscope was introduced through the mouth, and advanced to the second part of duodenum. The upper GI endoscopy was accomplished without difficulty. The patient tolerated the procedure well. Scope In: 8:50:34 AM Scope Out: 8:54:59 AM Total Procedure Duration Time 0 hours 4 minutes 25 seconds Findings: The examined esophagus was normal. A small hiatal hernia was present. Few non-bleeding linear gastric ulcers with no stigmata of bleeding were found in the gastric body. The largest lesion was 6 mm in largest dimension. Biopsies were taken with a cold forceps for histology. Verification of patient identification for the specimen was done. Estimated blood loss was minimal. Biopsies were taken with a cold forceps for Helicobacter pylori testing. Verification of patient identification for the specimen was done. Estimated blood loss was minimal. Patchy mild inflammation characterized by congestion (edema) was found in the second portion of the duodenum. A non-bleeding diverticulum with a large opening and no stigmata of recent bleeding was found in the middle third of the esophagus. Impression: - Normal esophagus. - Small hiatal hernia. - Non-bleeding gastric ulcers with no stigmata of bleeding. Biopsied. - Chronic duodenitis. Recommendation: - Discharge patient to home. - Resume previous diet. - Continue present medications. - Await pathology results. Procedure Code(s): --- Professional --- 64512, Esophagogastroduodenoscopy, flexible, transoral; with biopsy, single or multiple CPT copyright 2021 [employer]. All rights reserved. The codes documented in this report are preliminary and upon software product specialist review may be revised to meet current compliance requirements. Isaiah Sorensen DO 03/19/2025 9:28:17 AM This report has been signed electronically. Number of Addenda: 0 Note Initiated On: 03/19/2025 8:38 AM
--- NOTE | 2025-03-19 10:09 | OP.CCLET_ITS ---
03/19/2025 Marcelo Borges MD Re : Colonoscopy procedure for Joyce Hurst Dear Dr. Borges This procedure was performed on Wednesday, March 19, 2025. My impressions and recommendations are as follows: Impressions : - Diverticulosis in the recto-sigmoid colon, in the sigmoid colon, in the descending colon and in the ascending colon. - Two 1 to 2 mm polyps in the transverse colon and in the cecum, removed with a cold snare. Resected and retrieved. - Three 10 mm polyps in the ascending colon and in the cecum. Treated with a heater probe. - One 11 mm polyp at the splenic flexure, removed with a hot snare. Resected and retrieved. Recommendations : - Repeat colonoscopy in 3 years for surveillance. - Continue present medications. My findings are described in the full procedure note, which is enclosed. If I can be of further assistance, please feel free to contact me at . Sincerely, Isaiah Sorensen, 03/19/2025 10:08:22 AM This report has been signed electronically.
--- NOTE | 2025-03-19 10:09 | OP.COLON_ITS ---
Patient Name: Joyce Hurst Procedure Date: 03/19/2025 8:55 AM Date of : 1945 Age: 80 Procedure: Colonoscopy Indications: Screening for colorectal malignant neoplasm Providers: Isaiah Sorensen DO Referring MD: Marcelo Borges MD Medicines: Monitored Anesthesia Care Patient Profile: This is an 80 year old female. Refer to note in patient chart for documentation of history and physical. Patient has symptoms of chronic epigastric abdominal pain, chronic dyspepsia and chronic nausea. Last Colonoscopy: several years ago. Complications: No immediate complications. Procedure: Pre-Anesthesia Assessment: - Prior to the procedure, a History and Physical was performed, and patient medications and allergies were reviewed. The patient is competent. The risks and benefits of the procedure and the sedation options and risks were discussed with the patient. All questions were answered and informed consent was obtained. Patient identification and proposed procedure were verified by the physician in the pre-procedure area. Mental Status Examination: alert and oriented. Airway Examination: normal oropharyngeal airway and neck mobility. Respiratory Examination: clear to auscultation. CV Examination: normal. Prophylactic Antibiotics: The patient does not require prophylactic antibiotics. Prior Anticoagulants: The patient has taken no anticoagulant or antiplatelet agents except for NSAID medication. ASA Grade Assessment: II - A patient with mild systemic disease. After reviewing the risks and benefits, the patient was deemed in satisfactory condition to undergo the procedure. The anesthesia plan was to use monitored anesthesia care (MAC). Immediately prior to administration of medications, the patient was re-assessed for adequacy to receive sedatives. The heart rate, respiratory rate, oxygen saturations, blood pressure, adequacy of pulmonary ventilation, and response to care were monitored throughout the procedure. The physical status of the patient was re-assessed after the procedure. After I obtained informed consent, the scope was passed under direct vision. Throughout the procedure, the patient's blood pressure, pulse, and oxygen saturations were monitored continuously. The Colonoscope was introduced through the anus and advanced to the cecum, identified by appendiceal orifice and ileocecal valve. The colonoscopy was performed without difficulty. The patient tolerated the procedure well. The quality of the bowel preparation was adequate. The ileocecal valve, appendiceal orifice, and rectum were photographed. Scope In: 8:57:28 AM Scope Withdrawal Time 0 hours 10 minutes 55 seconds Scope Out: 9:18:29 AM Total Procedure Duration Time 0 hours 21 minutes 1 second Findings: The perianal and digital rectal examinations were normal. Multiple small and large-mouthed diverticula were found in the recto-sigmoid colon, sigmoid colon, descending colon and ascending colon. Two sessile polyps were found in the transverse colon and cecum. The polyps were 1 to 2 mm in size. These polyps were removed with a cold snare. Resection and retrieval were complete. Verification of patient identification for the specimen was done. Estimated blood loss was minimal. Three flat polyps were found in the ascending colon and cecum. The polyps were 10 mm in size. Coagulation for destruction of remaining portion of lesion using heater probe was successful. Estimated blood loss was minimal. An 11 mm polyp was found in the splenic flexure. The polyp was sessile. The polyp was removed with a hot snare. Resection and retrieval were complete. Verification of patient identification for the specimen was done. Estimated blood loss was minimal. Impression: - Diverticulosis in the recto-sigmoid colon, in the sigmoid colon, in the descending colon and in the ascending colon. - Two 1 to 2 mm polyps in the transverse colon and in the cecum, removed with a cold snare. Resected and retrieved. - Three 10 mm polyps in the ascending colon and in the cecum. Treated with a heater probe. - One 11 mm polyp at the splenic flexure, removed with a hot snare. Resected and retrieved. Recommendation: - Repeat colonoscopy in 3 years for surveillance. - Continue present medications. Procedure Code(s): --- Professional --- 00340, Colonoscopy, flexible; with ablation of tumor(s), polyp(s), or other lesion(s) (includes pre- and post-dilation and guide wire passage, when performed) 10966, 59, Colonoscopy, flexible; with removal of tumor(s), polyp(s), or other lesion(s) by snare technique CPT copyright 2021 [employer]. All rights reserved. The codes documented in this report are preliminary and upon hospital coder review may be revised to meet current compliance requirements. Isaiah Sorensen DO 03/19/2025 10:08:22 AM This report has been signed electronically. Number of Addenda: 0 Note Initiated On: 03/19/2025 8:55 AM
--- NOTE | 2025-03-19 10:10 | POSTOPAN2_ITS ---
Anesthesia Postop Eval I Sum Postop Eval Completion status Anesthesia document: Postop Eval 1 completed: Yes Anesthesia Postop Eval I Summary Anesthesia Postop Eval I Summary: Anesthesia Postop Eval I: Assessment Summary Airway patent Yes 03/19/25 09:26 STOCK CLERK SELF SERVICE STORE.SOBR Spontaneous unlabored Yes 03/19/25 09:26 STOCK CLERK [employer] ST[employer].SOBR respirations Mental status Awake,Calm 03/19/25 09:26 STOCK CLERK [employer].SOBR nausea No 03/19/25 09:26 STOCK CLERK [employer] ST[employer].SOBR Vomiting No 03/19/25 09:26 STOCK CLERK S[employer] STORE.SOBR Anesthesia Postop Eval I: Fluid Summary Crystalloid volume administer 500 03/19/25 09:26 STOCK CLERK S[employer] STORE.SOBR (ml) Colloids volume administered ( ml) Blood Product volume administered (ml) Total IV fluid infused 500 03/19/25 09:26 STOCK CLERK [employer] STORE.SOBR Anesthesia Postop Eval I: Summary Notes Anesthesia Complication No 03/19/25 09:26 STOCK CLERK SEL[employer]ICE STORE.SOBR Anesthesia Complication Comment: Post-operative progress note Anesthesia: Postop Eval II Evaluation Mental status: Awake Pain Level: 0 nausea: No Vomiting: No Complications Anesthesia Complication: No
--- NOTE | 2025-03-19 10:10 | PCM.POSTANE2 ---
Anesthesia Postop Eval I Sum Postop Eval Completion status Anesthesia document: Postop Eval 1 completed: Yes Anesthesia Postop Eval I Summary Anesthesia Postop Eval I Summary: Anesthesia Postop Eval I: Assessment Summary Airway patent Yes 03/19/25 09:26 HEATING TECHNICIAN.SOBR Spontaneous unlabored Yes 03/19/25 09:26 HEATING TECHNICIAN.SOBR respirations Mental status Awake,Calm 03/19/25 09:26 HEATING TECHNICIAN.SOBR nausea No 03/19/25 09:26 HEATING TECHNICIAN.SOBR Vomiting No 03/19/25 09:26 HEATING TECHNICIAN.SOBR Anesthesia Postop Eval I: Fluid Summary Crystalloid volume administer 500 03/19/25 09:26 HEATING TECHNICIAN.SOBR (ml) Colloids volume administered ( ml) Blood Product volume administered (ml) Total IV fluid infused 500 03/19/25 09:26 HEATING TECHNICIAN.SOBR Anesthesia Postop Eval I: Summary Notes Anesthesia Complication No 03/19/25 09:26 HEATING TECHNICIAN.SOBR Anesthesia Complication Comment: Post-operative progress note Anesthesia: Postop Eval II Evaluation Mental status: Awake Pain Level: 0 nausea: No Vomiting: No Complications Anesthesia Complication: No
== END 2025-03-19 10:15 | disposition home or self-care (01) ==
LOC: EN 07:22 → AC 07:26
PROVIDERS: PCP Family Medicine; Referring Provider Family Medicine; Visit Provider Internal Medicine Gastroenterology
PROC: 0DJD8ZZ Inspection of Lower Intestinal Tract, Via Natural or Artificial Opening Endoscopic (ICD-10-PCS; CPT 45378; principal; 2025-03-19 08:25)
DX: R63.4 Abnormal weight loss (principal); E78.00 Pure hypercholesterolemia, unspecified; K57.30 Diverticulosis of large intestine without perforation or abscess without bleeding; K44.9 Diaphragmatic hernia without obstruction or gangrene; K29.80 Duodenitis without bleeding; Z87.891 Personal history of nicotine dependence; K29.70 Gastritis, unspecified, without bleeding; K25.9 Gastric ulcer, unspecified as acute or chronic, without hemorrhage or perforation; Z86.0100 Personal history of colon polyps, unspecified; K63.5 Polyp of colon; I10 Essential (primary) hypertension; K21.9 Gastro-esophageal reflux disease without esophagitis; Z79.899 Other long term (current) drug therapy; G25.81 Restless legs syndrome; Z90.49 Acquired absence of other specified parts of digestive tract; Z96.649 Presence of unspecified artificial hip joint; Z96.659 Presence of unspecified artificial knee joint; R11.2 Nausea with vomiting, unspecified; D12.0 Benign neoplasm of cecum
CPT/HCPCS: 45388; 45385; 43239; 88305; 88342; C1889

== ENCOUNTER → 2025-04-14 | Outpatient (CLI) | payer MEDICARE, SELFPAY ==
[2025-04-14 13:25] LABS: AST(SGOT) 32 U/L (<=31); Alanine Aminotransfer ALT/SGPT 16 U/L (<=34); Alkaline Phosphatase 116 U/L (35-104); Bilirubin, Direct 0.26 mg/dL (0.00-0.30); Total Bilirubin 0.58 mg/dL (0.00-1.30)
[2025-04-14 13:50] LABS: Absolute Neutrophil Count 4.1 X10^3/uL (2.0-7.7); Basophil# 0.04 X10^3/uL; Basophil% 0.6 % (0-1); Eosinophil# 0.15 X10^3/uL; Eosinophils% 2.4 % (0-5); Hematocrit 44.1 % (37-47); Lymphocyte % 25.4 % (19-41); Mean Corp Hgb Conc 31.7 g/dL (32-36); Mean Corpuscular Volume 91.3 fL (81-99); Mean Platelet Vol. 11.4 fl (6.2-12.0); Monocyte# 0.41 X10^3/uL; Monocyte% 6.5 % (0-10); NRBC Flagged by Analyzer 0 % (0-5); Neutrophil # 4.07 X10^3/uL (2.7-7.7); Neutrophil % 64.6 % (47-70); Platelet Count 164 K/mm3 (150-450); RBC Distribution Width CV 15.8 % (11.6-14.6); RBC Distribution Width SD 52.6 fl (35.1-43.9); Red Blood Count 4.83 M/mm3 (4.2-5.4); White Blood Count 6.3 K/mm3 (4.4-11.0)
[2025-04-14 13:53] LABS: Vitamin B12 2265 pg/mL (180-914)
[2025-04-14 14:08] LABS: CRP 5.63 mg/L (0.0-3.0); Iron 87 ug/dL (50-170); Iron Binding Capacity,Total 369 ug/dL (250-450); Iron Binding Capacity,Unsat 282 ug/dL (228-428)
[2025-04-16 08:08] LABS: GGTP 16 IU/L (0-60)
== END | disposition home or self-care (01) ==
LOC: LAB 10:19
PROVIDERS: PCP Family Medicine; Referring Provider Nurse Practitioner Acute Care; Visit Provider Nurse Practitioner Acute Care
DX: K25.9 Gastric ulcer, unspecified as acute or chronic, without hemorrhage or perforation (principal); K29.70 Gastritis, unspecified, without bleeding; R74.8 Abnormal levels of other serum enzymes
CPT/HCPCS: 36415; 80076; 82607; 82941; 82977; 83516; 83540; 83550; 85025; 86140

== ENCOUNTER → 2025-06-02 | Outpatient (CLI) | payer MEDICARE, SELFPAY ==
--- NOTE | 2025-06-02 09:20 | RAD_ITS ---
EXAM: XR Abdomen, 1 View CLINICAL INDICATION: KUB TECHNIQUE: Frontal supine view of the abdomen/pelvis. COMPARISON: No relevant prior studies available. FINDINGS: GASTROINTESTINAL TRACT: Fecal retention in the colon consistent with constipation. No dilation. ORGANS: Right renal pelvic calculi, largest measuring up to 6 mm. BONES/JOINTS: Posterior fusion hardware of the lower lumbar spine. Bilateral hip replacement. No acute fracture. RAD/Abdomen Single View IMPRESSION: 1. Right renal pelvic calculi, largest measuring up to 6 mm. 2. Fecal retention in the colon consistent with constipation. Reading [facility]
== END | disposition home or self-care (01) ==
LOC: RAD 08:33
PROVIDERS: PCP Family Medicine; Referring Provider Urology; Visit Provider Urology
DX: N20.0 Calculus of kidney (principal)
CPT/HCPCS: 74018

== ENCOUNTER 2025-06-13 13:24 | Day surgery (SDC) | payer MEDICARE, SELFPAY ==
--- NOTE | 2025-06-04 18:17 | PAT.ANESEVAL ---
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 When Was Last Pacemaker Check QUESTION #4 FULL TEXT: You/Your Family Experience fever (hyperthermia) with Anesthesia Last Oral Intake Last Oral intake: Last Oral Intake NPO since Meds taken in AM with sips of water? 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 Female Yes 06/04/25 10:18 HX of Motion Sickness No 06/04/25 10:18 HX of N/V After Surgery No 06/04/25 10:18 Non-Smoker Yes 06/04/25 10:18 Duration of Surgery greater Yes 06/04/25 10:18 than 60 minutes Number of Risk Factors 3 06/04/25 10:18 PONV Score Moderate Risk 06/04/25 10:18 Height & Weight Height & Weight: Anesthesia: Height & Weight Height 4 ft 8 in 04/14/25 09:51 Respiratory Assessment Respiratory Assessment - aerobics teacher: Respiratory Tract Infection Hx - aerobics teacher Hx Respiratory Tract Infection No 06/04/25 10:18 STOP Sleep Apnea STOP Sleep Apnea - aerobics teacher: STOP Sleep Apnea - aerobics teacher Hx Hypertension Yes: CONTROLLED WITH MED 06/04/25 10:18 Hx Sleep Apnea No 06/04/25 10:18 CPAP No 06/04/25 10:18 BIPAP No 06/04/25 10:18 Do you snore loudly (louder No 06/04/25 10:18 than talking or can be heard Do you often feel tired/ No 06/04/25 10:18 fatigued/ sleepy during daytime? Has anyone observed you stop No 06/04/25 10:18 breathing during sleep? STOP Results Negative 06/04/25 10:18 QUESTION #5 FULL TEXT : Do you snore loudly (louder than talking or can be heard through closed doors)? 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 Specify any problems Hx of Preganancy in last 3 No 06/04/25 10:18 Months Nurse Filling Out Transfusion DSCHRIBER 06/04/25 10:18 & Questions: Date: 06/04/25 06/04/25 10:18 Time: 10:21 06/04/25 10:18 Patient unable to answer at this time (ie. 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: /Reproductive Hx- aerobics teacher Hx Now No 06/04/25 10:18 Gestational Age (in weeks): EDC: Hx Hx Para Hx Section SAB No 06/04/25 10:18 PFSH Medical History (Updated 06/04/25 @ 10:31 by Viola Mann) Anxiety Low iron Bladder disease Loss of consciousness History of ulceration Gastroparesis Depression History of edema Wears hearing aid Post-menopausal DVT (deep venous thrombosis) Restless legs Back pain Injury of head and neck Former smoker Shortness of breath on exertion History of pain when walking History of stress test Hypertension Transaminitis Acute on chronic respiratory failure with hypoxemia Acute respiratory failure GERD (gastroesophageal reflux disease) Former smoker High cholesterol Arthritis Osteoarthritis Home Medications ?Medication ?Instructions ?Recorded ?Last Taken ?Type rosuvastatin 40 mg tablet 40 mg PO QHS CHOLESTEROL 06/30/21 08/27/24 History potassium chloride 20 mEq 40 meq (2 x 20 mEq) PO DAILY 07/01/21 08/27/24 Rx tablet,extended release(part/cryst) potassium #0 tabs menthol 4 % topical gel (Biofreeze 1 applic topical DAILY PRN PAIN 07/21/21 Unknown History (menthol)) pramipexole 1 mg tablet 0.5 mg PO BID RLS 06/04/24 08/28/24 History diltiazem HCl 180 mg capsule,24 180 mg PO DAILY 12/02/24 03/19/25 06:00 History hr,extended release pantoprazole 40 mg tablet,delayed 40 mg PO BID #120 tabs 12/06/24 Unknown Rx release duloxetine 60 mg capsule,delayed 60 mg PO BID #180 caps 03/04/25 Unknown Rx release leucovorin 4 mg-pyridoxal 1 tab-cap PO QDAY #90 tabs 03/04/25 Unknown Rx phosphate 50 mg-mecobalamin 2 mg tablet (Folinic-Plus) cholecalciferol (vitamin D3) 25 25 mcg PO DAILY 03/18/25 Unknown History mcg (1,000 unit) capsule (Vitamin D3) vitamin B complex 1 cap PO DAILY 03/18/25 Unknown History aspirin 81 mg tablet 81 mg PO QDAY 04/14/25 06/03/25 History hydrochlorothiazide 12.5 mg capsule 12.5 mg PO QDAY 04/14/25 Unknown History sucralfate 1 gram tablet 1 g PO BID #180 tabs 05/19/25 Unknown Rx Allergy/AdvReac Type Severity Reaction Status Date / Time meperidine HCl (From Demerol) Allergy Severe Swelling Verified 06/04/25 10:15 poison adelaide extract (Poison Allergy Rash Verified 06/04/25 10:15 Adelaide Extract) atorvastatin calcium (From AdvReac Upset Verified 06/04/25 10:15 Lipitor) Stomach cefaclor (From Ceclor) AdvReac PALPITATIONS, Verified 06/04/25 10:15 CHEST PRESSURE, SHORT OF BREATH doxycycline AdvReac Upset Verified 06/04/25 10:15 Stomach hydrocodone AdvReac Upset Verified 06/04/25 10:15 Stomach Family History Mother Arthritis CVA (cerebral vascular accident) Father Myocardial infarction Heart disease Hypertension High cholesterol Surgical History (Updated 06/04/25 @ 10:31 by Viola Mann) History of lumbar fusion Hx of total hip arthroplasty History of esophagogastroduodenoscopy (EGD) History of appendectomy History of tonsillectomy Hx of colonoscopy Hx of bilateral breast reduction surgery Hx of surgical procedure History of hip replacement History of toe surgery History of renal stent History of cataract surgery History of knee replacement History of extraction of renal calculus History of carotid endarterectomy History of mzzxi-fqvsm-xzragyh bypass Social History Smoking Status: Former smoker Tobacco: How many years used: 40 Electronic Cigarette Use: not used how long ago did patient quit smokin years ago second hand exposure: No alcohol intake: current alcohol intake frequency: holidays/special occasions only substance use type: does not use aaln/sikhism: None seatbelt use: sometimes Audit: Pertinent Findings Pertinent Findings EKG Perinent findings: 07/21/2021. Normal sinus rhythm. Stress test pertinent findings: 11/07/2024. EF is 73%. No areas of reversibility are noted to suggest ischemia. No previous infarct. Recommendation Anesthesia Recommendation Anesthesia recommendation: OPTIMIZED for anesthesia
[2025-06-13] VITALS (13 sets, daily range): BP systolic 77–176; BP diastolic 48–94; PULSE 48–71; RESP 16–18; TEMP 36.1–36.3; O2SAT 92–100; BMI 28.8
--- NOTE | 2025-06-13 07:01 | PCM.HP.STD ---
HPI - General General Date of Service: 06/13/25 Chief Complaint: Kidney stone HPI Narrative TREY CALVERT, is a 80 F who presents for a treatment of a kidney stone on the left side with shockwave lithotripsy [facility] Medical History (Updated 06/04/25 @ 10:31 by Viola Mann) Anxiety Low iron Bladder disease Loss of consciousness History of ulceration Gastroparesis Depression History of edema Wears hearing aid Post-menopausal DVT (deep venous thrombosis) Restless legs Back pain Injury of head and neck Former smoker Shortness of breath on exertion History of pain when walking History of stress test Hypertension Transaminitis Acute on chronic respiratory failure with hypoxemia Acute respiratory failure GERD (gastroesophageal reflux disease) Former smoker High cholesterol Arthritis Osteoarthritis Home Medications ?Medication ?Instructions ?Recorded ?Last Taken ?Type rosuvastatin 40 mg tablet 40 mg PO QHS CHOLESTEROL 06/30/21 08/27/24 History potassium chloride 20 mEq 40 meq (2 x 20 mEq) PO DAILY 07/01/21 08/27/24 Rx tablet,extended release(part/cryst) potassium #0 tabs menthol 4 % topical gel (Biofreeze 1 applic topical DAILY PRN PAIN 07/21/21 Unknown History (menthol)) pramipexole 1 mg tablet 0.5 mg PO BID RLS 06/04/24 08/28/24 History diltiazem HCl 180 mg capsule,24 180 mg PO DAILY 12/02/24 03/19/25 06:00 History hr,extended release pantoprazole 40 mg tablet,delayed 40 mg PO BID #120 tabs 12/06/24 Unknown Rx release duloxetine 60 mg capsule,delayed 60 mg PO BID #180 caps 03/04/25 Unknown Rx release leucovorin 4 mg-pyridoxal 1 tab-cap PO QDAY #90 tabs 03/04/25 Unknown Rx phosphate 50 mg-mecobalamin 2 mg tablet (Folinic-Plus) cholecalciferol (vitamin D3) 25 25 mcg PO DAILY 03/18/25 Unknown History mcg (1,000 unit) capsule (Vitamin D3) vitamin B complex 1 cap PO DAILY 03/18/25 Unknown History aspirin 81 mg tablet 81 mg PO QDAY 04/14/25 06/03/25 History hydrochlorothiazide 12.5 mg capsule 12.5 mg PO QDAY 04/14/25 Unknown History sucralfate 1 gram tablet 1 g PO BID #180 tabs 05/19/25 Unknown Rx Allergy/AdvReac Type Severity Reaction Status Date / Time meperidine HCl (From Demerol) Allergy Severe Swelling Verified 06/04/25 10:15 poison adelaide extract (Poison Allergy Rash Verified 06/04/25 10:15 Adelaide Extract) atorvastatin calcium (From AdvReac Upset Verified 06/04/25 10:15 Lipitor) Stomach cefaclor (From Ceclor) AdvReac PALPITATIONS, Verified 06/04/25 10:15 CHEST PRESSURE, SHORT OF BREATH doxycycline AdvReac Upset Verified 06/04/25 10:15 Stomach hydrocodone AdvReac Upset Verified 06/04/25 10:15 Stomach Family History Mother Arthritis CVA (cerebral vascular accident) Father Myocardial infarction Heart disease Hypertension High cholesterol Surgical History (Updated 06/04/25 @ 10:31 by Viola Mann) History of lumbar fusion Hx of total hip arthroplasty History of esophagogastroduodenoscopy (EGD) History of appendectomy History of tonsillectomy Hx of colonoscopy Hx of bilateral breast reduction surgery Hx of surgical procedure History of hip replacement History of toe surgery History of renal stent History of cataract surgery History of knee replacement History of extraction of renal calculus History of carotid endarterectomy History of ivqli-byitc-nknshjg bypass Social History Smoking Status: Former smoker Tobacco: How many years used: 40 Electronic Cigarette Use: not used how long ago did patient quit smokin years ago second hand exposure: No alcohol intake: current alcohol intake frequency: holidays/special occasions only substance use type: does not use alan/adventism: None seatbelt use: sometimes
--- NOTE | 2025-06-13 13:40 | RAD_ITS ---
EXAM: XR Abdomen, 1 View CLINICAL INDICATION: PREOP LEFT KIDNEY STONE TECHNIQUE: Frontal supine view of the abdomen/pelvis. COMPARISON: No relevant prior studies available. FINDINGS: GASTROINTESTINAL TRACT: Fecal retention in the colon consistent with constipation. No dilation. ORGANS: 6 mm calculus of the left renal region. BONES/JOINTS: Posterior fusion of the lower lumbar spine. Bilateral hip replacement. No acute fracture. RAD/Abdomen Single View IMPRESSION: 1. 6 mm calculus of the left renal region. 2. Fecal retention in the colon consistent with constipation. Reading Location: [id number]
[2025-06-13] MEDS: Lactated Ringers 1,000 ML 15 ML IV (14:25)
--- NOTE | 2025-06-13 14:50 | PRE.ANES_ITS ---
ASA Classification* ASA Classification ASA Classification: 2 Assessment & Plan Anesthesia* Anesthesia Assessment Anesthesia Assessment: Discussed sedation and/or anesthesia options, risks, benefits, and alternatives with patient/parents/legal guardian/POA. Questions invited. The patient/parents/legal guardian/POA seems to understand and agrees to proceed with anesthesia plan. Reviewed the physical assessment, medical history, allergy history and patient home medications list prior to surgery/procedure/anesthetic and documented any changes. Performed airway and anesthesia risk assessments. Anesthesia Type Anesthesia Type: General Anesthesia Focused Assessment* Temperature: 97.3 F Pulse Rate: 71 Blood Pressure: 163/58 Respiratory Rate: 16 Pulse Ox: 97 Airway Assessment Mouth opens: 2 cm Mallampati Score: III Labs Anesthesia Preop lab: CBC WBC 6.3 K/mm3 (4.4-11.0) 04/14/25 10:04/14/25 RBC 4.83 M/mm3 (4.2-5.4) 04/14/25 10:04/14/25 Hgb 14.0 g/dL (12.0-15.0) 04/14/25 10:04/14/25 Hct 44.1 % (37-47) 04/14/25 10:04/14/25 Plt Count 164 K/mm3 (150-450) 04/14/25 10:30 04/14/25 CHEMISTRY Potassium 3.5 mmol/L (3.5-5.1) 12/06/24 06:09 12/06/24 Sodium 139 mmol/L (136-145) 12/06/24 06:09 12/06/24 Magnesium 2.1 mg/dL (1.6-2.6) 12/06/24 06:09 12/06/24 Phosphorus 3.5 mg/dL (2.5-4.9) 12/06/24 06:09 12/06/24 BUN 7 mg/dL (7-18) 12/06/24 06:09 12/06/24 Creatinine 0.76 mg/dL (0.55-1.02) 12/06/24 06:09 12/06/24 Glucose 91 mg/dL (74-106) 12/06/24 06:09 12/06/24 POC Glucose 157 mg/dL (74-106) H 08/28/24 06:27 08/28/24 TSH 1.47 uIU/mL (0.358-3.74) 02/08/21 09:47 COAG PT 12.9 SECONDS (11.7-14.9) 09/02/17 18:15 Pre-Assessment Diagnosis/Proposed Procedure Planned Operative Procedure(s): LEFT ESWL Anesthesia History 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 When Was Last Pacemaker Check QUESTION #4 FULL TEXT: You/Your Family Experience fever (hyperthermia) with Anesthesia Last Oral Intake Last Oral intake: Last Oral Intake NPO since 07:00 06/13/25 14:22 Meds taken in AM with sips of Yes 06/13/25 14:22 water? 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 Female Yes 06/04/25 10:18 HX of Motion Sickness No 06/04/25 10:18 HX of N/V After Surgery No 06/04/25 10:18 Non-Smoker Yes 06/04/25 10:18 Duration of Surgery greater Yes 06/04/25 10:18 than 60 minutes Number of Risk Factors 3 06/04/25 10:18 PONV Score Moderate Risk 06/04/25 10:18 Height & Weight Height & Weight: Anesthesia: Height & Weight Height 4 ft 8 in 06/13/25 14:22 Weight: 58.3 kg 06/13/25 14:22 Body Mass Index (BMI) 28.8 06/13/25 14:22 Respiratory Assessment Respiratory Assessment - wastewater treatment supervisor: Respiratory Tract Infection Hx - wastewater treatment supervisor Hx Respiratory Tract Infection No 06/04/25 10:18 STOP Sleep Apnea STOP Sleep Apnea - wastewater treatment supervisor: STOP Sleep Apnea - wastewater treatment supervisor Hx Hypertension Yes: CONTROLLED WITH MED 06/04/25 10:18 Hx Sleep Apnea No 06/04/25 10:18 CPAP No 06/04/25 10:18 BIPAP No 06/04/25 10:18 Do you snore loudly (louder No 06/04/25 10:18 than talking or can be heard Do you often feel tired/ No 06/04/25 10:18 fatigued/ sleepy during daytime? Has anyone observed you stop No 06/04/25 10:18 breathing during sleep? STOP Results Negative 06/04/25 10:18 QUESTION #5 FULL TEXT : Do you snore loudly (louder than talking or can be heard through closed doors)? 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 Specify any problems Hx of Preganancy in last 3 No 06/04/25 10:18 Months Nurse Filling Out Transfusion DSCHRIBER 06/04/25 10:18 & Questions: Date: 06/04/25 06/04/25 10:18 Time: 10:21 06/04/25 10:18 Patient unable to answer at this time (ie. 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: /Reproductive Hx- wastewater treatment supervisor Hx Now No 06/04/25 10:18 Gestational Age (in weeks): EDC: Hx Hx Para Hx Section SAB No 06/04/25 10:18 Active Medications Active Medications: Current Medications Generic Name Dose Route Start Last Admin Trade Name Lora PRN Reason Stop Dose Admin Ciprofloxacin 400 mg in 200 mls @ 200 mls/hr 06/13/25 15:35 Cipro IV 06/13/25 16:34 PREOP ONE Lactated Ringer's 1,000 mls @ 15 mls/hr 06/13/25 13:30 06/13/25 14:25 IV 15 mls/hr .Q48H LETA Administration PFSH Medical History (Updated 06/04/25 @ 10:31 by Viola Mann) Anxiety Low iron Bladder disease Loss of consciousness History of ulceration Gastroparesis Depression History of edema Wears hearing aid Post-menopausal DVT (deep venous thrombosis) Restless legs Back pain Injury of head and neck Former smoker Shortness of breath on exertion History of pain when walking History of stress test Hypertension Transaminitis Acute on chronic respiratory failure with hypoxemia Acute respiratory failure GERD (gastroesophageal reflux disease) Former smoker High cholesterol Arthritis Osteoarthritis Home Medications ?Medication ?Instructions ?Recorded ?Last Taken ?Type rosuvastatin 40 mg tablet 40 mg PO QHS CHOLESTEROL 08/27/24 History potassium chloride 20 mEq 40 meq (2 x 20 mEq) PO DAILY 07/01/21 08/27/24 Rx tablet,extended release(part/cryst) potassium #0 tabs menthol 4 % topical gel (Biofreeze 1 applic topical DA GARETT PRN PAIN 07/21/21 Unknown History (menthol)) pramipexole 1 mg tablet 0.5 mg PO BID RLS 06/04/24 0 06/13/25 History diltiazem HCl 180 mg capsule,24 180 mg PO DAILY 06/13/25 History hr,extended release pantoprazole 40 mg tablet,delayed 40 mg PO BID #120 ta bs 12/06/24 Unknown Rx release duloxetine 60 mg capsule,delayed 60 mg PO BID #180 cap s 03/04/25 Unknown Rx release leucovorin 4 mg-pyridoxal 1 tab-cap PO QDAY #90 tabs 0 03/04/25 Unknown Rx phosphate 50 mg-mecobalamin 2 mg tablet (Folinic-Plus) cholecalciferol (vitamin D3) 25 25 mcg PO DAILY Unknown History mcg (1,000 unit) capsule (Vitamin D3) vitamin B complex 1 cap PO DAILY 03/18/25 Unkn own History aspirin 81 mg tablet 81 mg PO QDAY 04/14/2506/03 History hydrochlorothiazide 12.5 mg capsule 12.5 mg PO QDAY Unknown History sucralfate 1 gram tablet 1 g PO BID #180 tabs 5 Unknown Rx Allergy/AdvReac Type Severity Reaction Status Date / Time meperidine HCl (From Demerol) Allergy Severe Swelling Verified 06/13/25 14:20 poison adelaide extract (Poison Allergy Rash Verified 06/13/25 14:20 Adelaide Extract) atorvastatin calcium (From AdvReac Upset Verified 06/13/25 14:20 Lipitor) Stomach cefaclor (From Ceclor) AdvReac PALPITATIONS, Verified 06/13/25 14:20 CHEST PRESSURE, SHORT OF BREATH doxycycline AdvReac Upset Verified 06/13/25 14:20 Stomach hydrocodone AdvReac Upset Verified 06/13/25 14:20 Stomach Family History Mother Arthritis CVA (cerebral vascular accident) Father Myocardial infarction Heart disease Hypertension High cholesterol Surgical History (Updated 06/04/25 @ 10:31 by Viola Mann) History of lumbar fusion Hx of total hip arthroplasty History of esophagogastroduodenoscopy (EGD) History of appendectomy History of tonsillectomy Hx of colonoscopy Hx of bilateral breast reduction surgery Hx of surgical procedure History of hip replacement History of toe surgery History of renal stent History of cataract surgery History of knee replacement History of extraction of renal calculus History of carotid endarterectomy History of afmkm-didle-olkphcg bypass Social History Smoking Status: Former smoker Tobacco: How many years used: 40 Electronic Cigarette Use: not used how long ago did patient quit smokin years ago second hand exposure: No alcohol intake: current alcohol intake frequency: holidays/special occasions only substance use type: does not use alan/presybeterian: None seatbelt use: sometimes Review of Systems (Anesthesia) ROS Narrative System reviewed and no additional complaints, except as documented.
--- NOTE | 2025-06-13 15:18 | DCINST_ITS ---
Discharge Instructions DC O2, CPAP, BIPAP needs Home O2 Discharge instructions: No Dressing / Incision Discharge Activity: Return to Normal Activity and May Not Drive (while taking narcotic pain medications.) Dressing / Incision Call your doctor if you observe: Fever of 101 or Higher Follow Up Care Please Follow Up With: Dung Renner MD When: Call [phone] for an appointment Test Results: Test results from this visit will be discussed in further detail at your follow- up appointment, if applicable. Discharge Plan Admission Primary Reason for Your Visit: left ESWL Attending Provider: Dung Renner Primary Care Provider: Marcelo Borges Instructions Print Language: Georgian Discharge Orders/Prescriptions Prescriptions: New ciprofloxacin HCl [Cipro] 500 mg tablet 500 mg PO BID Qty: 6 0RF oxycodone 5 mg tablet 5 mg PO Q6H PRN (Reason: pain) 3 Days Qty: 14 0RF Continued pramipexole 1 mg tablet 0.5 mg PO BID duloxetine 60 mg capsule,delayed release(DR/EC) 60 mg PO BID Qty: 180 2RF Folinic-Plus 4-50-2 mg tablet 1 tab-cap PO QDAY Qty: 90 2RF hydrochlorothiazide 12.5 mg capsule 12.5 mg PO QDAY rosuvastatin 40 mg tablet 40 mg PO QHS potassium chloride 20 MEQ tablet 40 meq PO DAILY Qty: 0 0RF Biofreeze (menthol) 4 % Gel 1 applic TOPICAL DAILY PRN (Reason: PAIN) cholecalciferol (vitamin D3) [Vitamin D3] 25 mcg (1,000 unit) capsule 25 mcg PO DAILY vitamin B complex Capsule 1 cap PO DAILY diltiazem HCl 180 mg capsule,extended release 24hr 180 mg PO DAILY pantoprazole 40 mg Tablet,Delayed Release (Dr/Ec) 40 mg PO BID Qty: 120 0RF sucralfate 1 gram tablet 1 g PO BID Qty: 180 1RF Held aspirin 81 mg tablet 81 mg PO QDAY Hold Instructions: Resume on 06/20/25. Referrals / Follow Up: Marcelo Borges MD [Primary Care Provider] - Dung Renner MD [Med Staff - Active Staff] - Disposition Disposition (needs filled in before D/C Order can be placed): Home, Self Care
--- NOTE | 2025-06-13 16:00 | PCM.OPRPT ---
Operative Report (Standard) Operative Information Date of Procedure: 06/13/25 Pre-Operative Diagnosis: left ESWL Post-Operative Diagnosis: same Surgery/Procedure Performed: Left extracorporeal shockwave lithotripsy borematic machine operator: No Type of Anesthesia: General RN Documented Start/Stop Times: Operation Date: 06/13/25 15:35 Case Time Into Pre-Op 06/13/25 13:30 Out of Pre-Op 06/13/25 15:08 Anesthesia Start 06/13/25 15:13 Into Room 06/13/25 15:13 Procedure Start 06/13/25 15:30 Procedure Start Time: 15:30 Procedure Stop Time: 16:07 Select all DRAINS/GRAFTS/IMPLANTS that apply: None Estimated Blood Loss: None Specimen collected: No Description of surgery: Patient presents to the hospital for treatment of a kidney stone with shockwave lithotripsy. In the preoperative area and x-ray was done to confirm the location of the stone. The x-ray was reviewed and the stone location was reviewed. In the preoperative setting I spoke with the patient regarding the treatment of the stone how the treatment would be conducted and the expectations after surgery. The patient understands there is a risk of bleeding and infection. Also discussed the very rare risk of hematoma or damage to the kidney. We also discussed the risk that the shockwave machine will fail to break the stone adequately and that the patient may need other surgical procedures. I also discussed the possibility that the patient may need a stent after the procedure. After reviewing the procedure with the patient, the patient is signed the consent form all the patient's questions were addressed and was taken back to the operating room for treatment of a kidney stone. Patient was taken back to the operating room, the patient was identified by the nursing staff, I identified the side of the treatment and the patient side of treatment had been marked by my initials. The patient underwent general anesthetic and was placed supine on the lithotripter table. I then used fluoroscopy to identify the stone on the left. No more x-ray side. I then positioned the patient under the lithotripter and I used triangulation technique to identify the location of the stone and then I made sure that the stone was engaged in the F2 focal point of F2 Donier lithoprior machine. Once the patient was positioned appropriately and the stone was identified and placed in the F2 focal point of the lithotripter machine I then proceeded with shockwave lithotripsy. In the beginning the shockwave was delivered at a rate of 90 shocks per minute, anesthesia monitored the EKG for any ectopy. The power was slowly increased to 5 kV and subsequently at the 7 kV. I then proceeded with the treatment with shock wave therapy and around during the treatment to make sure the stone stayed in the F2 focal point during the entire treatment and after 3000 shockwaves were delivered to the stone under fluoroscopic guidance the treatment was completed. The patient was given instructions to call the office to make an a follow-up appointment with an x-ray to evaluate the success of the treatment, patient understands that its possible the stones may need another procedure. At this point the patient's anesthetic was reversed patient was extubated and taken back to the PACU in stable condition. Surgical Findings: Stone in the left kidney broke up completely Complications Complications: No Admit VTE Documentation VTE Present on Admission: No VTE Mechan Device Prophylaxis: SCD's VTE Pharm Prophylaxis ordered?: No
--- NOTE | 2025-06-13 16:22 | PCM.POST.ANE ---
Anesthesia: Postop Eval I Current Vital Signs Temperature: 96.9 F Pulse Rate: 66 Blood Pressure: 140/92 Respiratory Rate: 18 Pulse Ox: 96 Assessment Airway patent: Yes Spontaneous unlabored respirations: Yes nausea: No Vomiting: No Anesthesia Complication: No Fluid Hydration Crystalloid volume administer (ml): 1,000 Total IV fluid infused: 1,000 Progress Note Anesthesia document: Postop Eval 1 completed: Yes
--- NOTE | 2025-06-13 17:55 | SUR.PHASEII ---
PATIENT WAS UP GETTING DRESSED WITH . CALLED OUT AND STATED PATIENT BECAME DIZZY AND NAUSEATED. RN CAME INTO ROOM AND PATIENT WAS SITTING IN CHAIR. PATIENT HAD NORMAL COLOR. VITALS ASSESSED. PATIENT STATES THAT SHE JUST FEELS SLEEPY AND OUT OF IT. PATIENT ALSO STATES THAT SHE JUST HAS A DIZZY FEELING LIKE SHE IS DRUNK. DR. TSE NOTIFIED FACE TO FACE OF PATIENT CHANGE. DR. TSE STATED TO HAVE PATIENT PLACED BACK INTO BED AND DRINK WATER, REST FOR FEW MINUTES AND SEE HOW SHE FEELS AFTER THAT. RN AGREED AND WENT TO PATIENTS ROOM AND GOT PATIENT BACK INTO BED. PATIENT DID NOT STAGGER OR ANYTHING. PATIENT IS ALERT AND ORIENTED X4. PATIENT DOES NOT HAVE ANY FACIAL DROOPING. PATIENT MSP'S INTACT X4. PATIENT SAT UP SOME TO DRINK WATER. IS AT BEDSIDE WITH PATIENT AND HAVING PATIENT DRINK WATER. RN WILL CHECK ON PATIENT.
--- NOTE | 2025-06-13 20:06 | POSTOPAN2_ITS ---
Anesthesia Postop Eval I Sum Postop Eval Completion status Anesthesia document: Postop Eval 1 completed: Yes Anesthesia Postop Eval I Summary Anesthesia Postop Eval I Summary: Anesthesia Postop Eval I: Assessment Summary Airway patent Yes 06/13/25 16:22 OVERHEAD CRANE TECHNICIAN.CSIR Spontaneous unlabored Yes 06/13/25 16:22 OVERHEAD CRANE TECHNICIAN.CSIR respirations Mental status nausea No 06/13/25 16:22 OVERHEAD CRANE TECHNICIAN.CSIR Vomiting No 06/13/25 16:22 OVERHEAD CRANE TECHNICIAN.CSIR Anesthesia Postop Eval I: Fluid Summary Crystalloid volume administer 1,000 06/13/25 16:22 OVERHEAD CRANE TECHNICIAN.CSIR (ml) Colloids volume administered ( ml) Blood Product volume administered (ml) Total IV fluid infused 1,000 06/13/25 16:22 OVERHEAD CRANE TECHNICIAN.CSIR Anesthesia Postop Eval I: Summary Notes Anesthesia Complication No 06/13/25 16:22 OVERHEAD CRANE TECHNICIAN.CSIR Anesthesia Complication Comment: Post-operative progress note Anesthesia: Postop Eval II Evaluation Mental status: Awake and Calm Pain Level: 1 nausea: No Vomiting: No Complications Anesthesia Complication: No
--- NOTE | 2025-06-13 20:06 | PCM.POSTANE2 ---
Anesthesia Postop Eval I Sum Postop Eval Completion status Anesthesia document: Postop Eval 1 completed: Yes Anesthesia Postop Eval I Summary Anesthesia Postop Eval I Summary: Anesthesia Postop Eval I: Assessment Summary Airway patent Yes 06/13/25 16:22 CORPORATE SECRETARY.CSIR Spontaneous unlabored Yes 06/13/25 16:22 CORPORATE SECRETARY.CSIR respirations Mental status nausea No 06/13/25 16:22 CORPORATE SECRETARY.CSIR Vomiting No 06/13/25 16:22 CORPORATE SECRETARY.CSIR Anesthesia Postop Eval I: Fluid Summary Crystalloid volume administer 1,000 06/13/25 16:22 CORPORATE SECRETARY.CSIR (ml) Colloids volume administered ( ml) Blood Product volume administered (ml) Total IV fluid infused 1,000 06/13/25 16:22 CORPORATE SECRETARY.CSIR Anesthesia Postop Eval I: Summary Notes Anesthesia Complication No 06/13/25 16:22 CORPORATE SECRETARY.CSIR Anesthesia Complication Comment: Post-operative progress note Anesthesia: Postop Eval II Evaluation Mental status: Awake and Calm Pain Level: 1 nausea: No Vomiting: No Complications Anesthesia Complication: No
== END 2025-06-13 18:47 | disposition home or self-care (01) ==
LOC: SDC 13:24 → AC 13:28
PROVIDERS: PCP Family Medicine; Referring Provider Urology; Visit Provider Urology
PROC: (CPT 50590; principal; 2025-06-13 15:25)
DX: N20.0 Calculus of kidney (principal); I10 Essential (primary) hypertension; E78.2 Mixed hyperlipidemia; K21.9 Gastro-esophageal reflux disease without esophagitis; Z79.82 Long term (current) use of aspirin; Z79.899 Other long term (current) drug therapy; Z87.440 Personal history of urinary (tract) infections; Z87.891 Personal history of nicotine dependence
CPT/HCPCS: 50590; 00873; 74018; J0744; J2405

== ENCOUNTER → 2025-08-19 | Outpatient (CLI) | payer MEDICARE, SELFPAY ==
[2025-08-19 12:46] LABS: Mucous, Urine 0 SEEN /hpf (<or=2+); Red Blood Cells-Urine 0 SEEN /hpf (0-5)
[2025-08-19 15:07] LABS: Color, Urine Yellow (Yellow); Glucose, Dipstick Normal (Normal); Ketone-Dipstick Negative (Negative); Leukocyte Esterase-Dipstick 500 /ul (Negative); Nitrite-Dipstick Positive (Negative); Occult Blood-Urine 150 /ul (Negative); Protein-Dipstick 30 mg/dl (Negative); Specific Gravity, Urine 1.010 (1.002-1.030); Urine Bilirubin Dipstick Negative (Negative)
[2025-08-19 15:48] LABS: AST(SGOT) 35 U/L (<=31); Alanine Aminotransfer ALT/SGPT 20 U/L (<=34); Albumin, Serum 4.2 g/dL (3.4-4.8); Alkaline Phosphatase 111 U/L (35-104); Anion Gap 15 (5-15); BUN 37 mg/dL (4-19); BUN/Creat Ratio 27.7 RATIO (10-20); Calcium,Total 10.1 mg/dL (7.6-11.0); Carbon Dioxide 24.8 mmol/L (21.0-32.0); Chloride 102 mmol/L (98-108); Globulin 3.2 g/dL (2.2-4.2); Glucose 98 mg/dL (70-99); Potassium 3.4 mmol/L (3.3-5.1); Squamous Epithelial Cells - UA 0-5 SEEN /hpf (5-10)
[2025-08-19 16:17] LABS: Vitamin B12 > 4000 pg/mL (180-914)
[2025-08-19 18:36] LABS: Hematocrit 42.0 % (37-47); Hemoglobin 13.7 g/dL (12.0-15.0); Mean Corp Hgb Conc 32.6 g/dL (32-36); Mean Corpuscular Volume 92.7 fL (81-99); Mean Platelet Vol. 11.8 fl (6.2-12.0); Platelet Count 194 K/mm3 (150-450); RBC Distribution Width CV 13.9 % (11.6-14.6); RBC Distribution Width SD 47.1 fl (35.1-43.9); Red Blood Count 4.53 M/mm3 (4.2-5.4); White Blood Count 8.0 K/mm3 (4.4-11.0)
[2025-08-26 13:08] LABS: VITAMIN B6 27.1 ug/L (3.4-65.2); Vitamin B1, Thiamine 118.3 nmol/L (66.5-200.0)
[2025-09-01 15:09] LABS: Folate, Hemolysate Test > 620.0 ng/mL (Not Estab.); Folate, RBC (Hct) Test 43.6 % (34.0-46.6); Folates, RBC Test > 1422 ng/mL (>498)
== END | disposition home or self-care (01) ==
PROVIDERS: PCP Family Medicine; Referring Provider Psychiatry & Neurology Neurology; Visit Provider Psychiatry & Neurology Neurology
DX: R41.82 Altered mental status, unspecified (principal)
CPT/HCPCS: 36415; 80053; 81001; 82607; 82747; 84207; 84425; 84443; 85014; 85027; 87077; 87086; 87088; 87186

== ENCOUNTER 2025-08-29 13:22 | Observation (INO) | payer MEDICARE, SELFPAY ==
[2025-08-29] VITALS (9 sets, daily range): BP systolic 146–175; BP diastolic 47–85; PULSE 38–67; RESP 16–20; TEMP 36.6–36.7; O2SAT 95–100; BMI 28.7; BMI 29.4
--- NOTE | 2025-08-29 13:38 | EKG12_ITS ---
Test Reason : ANICETO
--- NOTE | 2025-08-29 14:05 | EX.ED.DYSGE1 ---
HPI History of Present Illness Chief Complaint: Palpitations Informant: patient and spouse/S.O. Narrative Narrative: 80-year-old female brought to the emergency department after referral from urgent care. Family states that over the past year she has lost about 40 pounds. They note that she has had several surgeries and was seeing her neurologist. They state that she was taking a medication that they do not know the name of for her legs and they noticed confusion with increasing strength of the medicine. Review of this chart shows that she has been having neuropathic pain in her legs and she was started on duloxetine. The dose was decreased down to 60 mg and the patient was concerned that she was experiencing the auditory hallucinations due to the duloxetine. Patient states that she saw a tiger in the dryer. Reported hallucinations of children. states that the confusion does not seem to be when she is out in public but is consistent at home. They recently went to urgent care had a concerns for urinary tract infection and got started on antibiotic. He returned to urgent care today where the states that they were told that she still has a urinary tract infection but it was noted that she was significantly bradycardic. She has not had any syncope or chest pains. They do not know the medications that she is on. She thinks that she may be on metoprolol. No reported fevers. No leg swelling. Patient denies any headaches. [facility] Medical History Anxiety Low iron Bladder disease Loss of consciousness History of ulceration Gastroparesis Depression History of edema Wears hearing aid Post-menopausal DVT (deep venous thrombosis) Restless legs Back pain Injury of head and neck Former smoker Shortness of breath on exertion History of pain when walking History of stress test Hypertension Transaminitis Acute on chronic respiratory failure with hypoxemia Acute respiratory failure GERD (gastroesophageal reflux disease) Former smoker High cholesterol Arthritis Osteoarthritis Home Medications ?Medication ?Instructions ?Recorded ?Last Taken ?Type rosuvastatin 40 mg tablet 40 mg PO QHS CHOLESTEROL 06/30/21 08/27/24 History potassium chloride 20 mEq 40 meq (2 x 20 mEq) PO DAILY 07/01/21 08/27/24 Rx tablet,extended release(part/cryst) potassium #0 tabs menthol 4 % topical gel (Biofreeze 1 applic topical DAILY PRN PAIN 07/21/21 Unknown History (menthol)) pramipexole 1 mg tablet 0.5 mg PO BID RLS 06/04/24 06/13/25 History pantoprazole 40 mg tablet,delayed 40 mg PO BID #120 tabs 12/06/24 Unknown Rx release cholecalciferol (vitamin D3) 25 25 mcg PO DAILY 03/18/25 Unknown History mcg (1,000 unit) capsule (Vitamin D3) vitamin B complex 1 cap PO DAILY 03/18/25 Unknown History aspirin 81 mg tablet 81 mg PO BID 04/14/25 08/29/25 History sucralfate 1 gram tablet 1 g PO BID #180 tabs 05/19/25 Unknown Rx chlorthalidone 50 mg tablet 50 mg PO QDAY 08/19/25 Unknown History diltiazem HCl 360 mg 360 mg PO QDAY 08/19/25 Unknown History capsule,extended release 24 hr (Cardizem CD) duloxetine 60 mg capsule,delayed 60 mg PO QHS #90 caps 08/19/25 Unknown Rx release leucovorin 4 mg-pyridoxal 1 tab-cap PO QDAY #90 tabs 08/19/25 Unknown Rx phosphate 50 mg-mecobalamin 2 mg tablet (Folinic-Plus) metoprolol succinate 25 mg 25 mg PO QDAY 08/19/25 Unknown History tablet,extended release 24 hr nitrofurantoin 1 cap PO BID 08/28/25 Unknown History monohydrate/macrocrystals 100 mg capsule Allergy/AdvReac Type Severity Reaction Status Date / Time meperidine HCl (From Demerol) Allergy Severe Swelling Verified 08/29/25 13:24 poison adelaide extract (Poison Allergy Rash Verified 08/29/25 13:24 Adelaide Extract) atorvastatin calcium (From AdvReac Upset Verified 08/29/25 13:24 Lipitor) Stomach cefaclor (From Ceclor) AdvReac PALPITATIONS, Verified 08/29/25 13:24 CHEST PRESSURE, SHORT OF BREATH doxycycline AdvReac Upset Verified 08/29/25 13:24 Stomach hydrocodone AdvReac Upset Verified 08/29/25 13:24 Stomach Family History Mother Arthritis CVA (cerebral vascular accident) Father Myocardial infarction Heart disease Hypertension High cholesterol Surgical History History of lumbar fusion Hx of total hip arthroplasty History of esophagogastroduodenoscopy (EGD) History of appendectomy History of tonsillectomy Hx of colonoscopy Hx of bilateral breast reduction surgery Hx of surgical procedure History of hip replacement History of toe surgery History of renal stent History of cataract surgery History of knee replacement History of extraction of renal calculus History of carotid endarterectomy History of qmgrv-qxipt-bsolapv bypass Social History Smoking Status: Former smoker Tobacco: How many years used: 40 Electronic Cigarette Use: not used how long ago did patient quit smokin years ago second hand exposure: No alcohol intake: current alcohol intake frequency: holidays/special occasions only substance use type: does not use alan/catholic: None seatbelt use: sometimes ROS ROS ED Constitutional Constitutional ED: Denies chills or weight loss Eyes Eyes: Denies change in vision or diplopia ENT ENT ED: Denies ear pain, rhinorrhea or sore throat Cardiovascular Cardiovascular: Reports other Details: Bradycardia ; Denies chest pain, orthopnea, palpitations or racing heartbeat Respiratory/Chest Respiratory/Chest: Denies cough, dyspnea or orthopnea Gastrointestinal Gastrointestinal: Denies abdominal pain, diarrhea, nausea or vomiting Genitourinary Genitourinary ED: Denies dysuria, hematuria or urinary frequency Musculoskeletal Musculoskeletal: Denies arthralgias or myalgias Integumentary Denies abscess or rash Neurologic Neurologic: Reports other Details: Confusion ; Denies headache(s) or weakness Psychiatric Psychiatric: Denies anxiety, depression, suicidal ideation or suicidal thoughts Endocrine Endocrinology: Denies polydipsia, polyphagia or polyuria Allergic/Immunologic Allergic/Immunologic ED: Denies mouth swelling, tongue swelling or urticaria EXAM Physical Exam Const Vital Signs: 08/29/25 13:23 08/29/25 13:53 08/29/25 14:13 Temperature 97.8 F Temperature Source Oral Pulse Rate 39 L Respiratory Rate 18 Respiratory Effort Normal Non-Labored Blood Pressure 148/61 H Blood Pressure Mean 90 Pulse Ox 98 Oxygen Delivery Method Room Air Room Air 08/29/25 14:14 08/29/25 14:22 08/29/25 15:00 Temperature 97.8 F 97.8 F Temperature Source Oral Oral Pulse Rate 40 L 39 L 38 L Respiratory Rate 20 H 19 H 18 Respiratory Effort Blood Pressure 175/56 H 150/47 H 166/85 H Blood Pressure Mean 95 81 112 Pulse Ox 100 97 96 Oxygen Delivery Method Room Air Room Air Room Air 08/29/25 16:00 Temperature Temperature Source Pulse Rate 41 L Respiratory Rate Respiratory Effort Blood Pressure 173/84 H Blood Pressure Mean 113 Pulse Ox 95 Oxygen Delivery Method Room Air Positive well nourished and well developed General Appearance ED: well developed and NAD HEENT Reports normocephalic, head/scalp atraumatic and moist mucous membranes Eyes PERRL and EOMs intact bilaterally Neck no lymphadenopathy, supple and no JVD Resp normal respiratory effort and clear to auscultation bilaterally Cardio regular rhythm and no murmurs Rate: bradycardia GI normal to inspection, nondistended, normoactive bowel sounds and non-tender Palpation: soft Back/Spine no CVA tenderness and normal ROM Extremity normal to inspection General Extremety ED: Negative for edema General Extremity: Negative for edema Neuro oriented x3 and CN's II-XII intact bilaterally Sensorium / Orientation: alert Motor Exam: strength 5/5 throughout Psych mental status grossly normal Mood & Affect: Negative for depressed or tearful Skin no rashes or lesions noted and no wounds MDM MDM MDM Narrative Medical decision making narrative: Differential diagnosis includes but not limited to UTI dementia acute coronary syndrome third-degree heart block second-degree heart block electrolyte abnormalities dehydration. My independent interpretation the chest x-ray is no acute process. EKG shows a probable junctional bradycardia. White count is normal at 8 hemoglobin 14.1 platelet count 167. BUN of 37 creatinine 1.40 initial troponin 35 magnesium 2.4. Urinalysis greater than 100 white cells 500 leukocyte esterase negative nitrates no bacteria seen. This to be sent for culture. Delta troponin is pending Patient has remained hemodynamically stable. Case was discussed with on-call cardiology Dr. Peters. Plan will be to hold her metoprolol and her diltiazem. Plan of care is admission into hospital. History & Record Review Discussion w/independent historian: Patient and Significant other Additional record(s) reviewed:: Prior outpatient record and Prior labs Lab Data Attestation: I reviewed the patient's lab results. Labs: Laboratory Results - last 24 hr 08/29/25 08/29/25 14:05 14:30 WBC 8.0 RBC 4.60 Hgb 14.1 Hct 41.7 MCV 90.7 MCH 30.7 MCHC 33.8 RDW Std Deviation 45.1 H RDW Coeff of Davidson 13.6 Plt Count 167 MPV 10.2 Immature Gran % (Auto) 0.300 Neut % (Auto) 67.4 Lymph % (Auto) 23.3 [place] % (Auto) 6.5 Eos % (Auto) 1.9 Baso % (Auto) 0.6 Absolute Neuts (auto) 5.4 Absolute Lymphs (auto) 1.86 Nucleated RBC % 0 PT 13.4 INR 1.0 APTT 26.7 Sodium 141 Potassium 4.1 Chloride 103 Carbon Dioxide 25.8 Anion Gap 12 BUN 37 H Creatinine 1.40 H Estim Creat Clear Calc 25.56 L Est GFR (MDRD) Non-Af 38 L BUN/Creatinine Ratio 26.6 H Glucose 112 H Calcium 10.4 Magnesium 2.4 H Troponin T High Sens 35 H Urine Color Yellow Urine Clarity Cloudy Urine pH 6.5 Ur Specific [place] 1.010 Urine Protein 100 H Urine Glucose (UA) Normal Urine Ketones Negative Urine Occult Blood 25 H Urine Nitrite Negative Urine Bilirubin Negative Urine Urobilinogen Normal Ur Leukocyte Esterase 500 H Urine RBC 0 SEEN Urine WBC >100 SEEN Ur Squamous Epith Cells 0-5 SEEN Urine Bacteria 0 SEEN Urine Mucus 0 SEEN Radiography Diagnostic Testing: Clinical Impression(s) from Imaging Studies Chest X-Ray 08/29/25 14:14 IMPRESSION: Mild increased markings at the lung bases suggestive of bibasilar linear atelectasis. Reading Location: [place] [id number] EKG Initial EKG: Attestation: I personally reviewed and interpreted this EKG as follows: Comments: Junctional bradycardia ventricular rate of 40 bpm. Management Discussion w/another healthcare provider: Hospitalist (Dr. Sánchez) and Motor Coach Bus Driver (Dr. Peters) Discharge Plan Dx/Rx/DC Orders Clinical Impression: Hallucinations, Junctional bradycardia Disposition Disposition: Acute Care Hospital [facility]
--- NOTE | 2025-08-29 14:14 | RAD_ITS ---
PROCEDURE: RAD/Chest 1 View (Portable)
[2025-08-29 14:25] LABS: Hematocrit 41.7 % (37-47); Hemoglobin 14.1 g/dL (12.0-15.0); Immature Granulocytes Count 0.020 X10^3/uL (0.0-0.0); Mean Corp Hgb Conc 33.8 g/dL (32-36); Mean Corpuscular Volume 90.7 fL (81-99); Mean Platelet Vol. 10.2 fl (6.2-12.0); NRBC Flagged by Analyzer 0 % (0-5); Platelet Count 167 K/mm3 (150-450); RBC Distribution Width CV 13.6 % (11.6-14.6); RBC Distribution Width SD 45.1 fl (35.1-43.9); Red Blood Count 4.60 M/mm3 (4.2-5.4); White Blood Count 8.0 K/mm3 (4.4-11.0)
[2025-08-29 14:32] LABS: Prothrombin Time (Protime)PT. 13.4 SECONDS (11.7-14.9)
[2025-08-29 14:33] LABS: Partial Thromboplast Time 26.7 Seconds (24.1-36.2)
[2025-08-29 14:35] LABS: Mucous, Urine 0 SEEN /hpf (<or=2+); Red Blood Cells-Urine 0 SEEN /hpf (0-5)
[2025-08-29 14:37] LABS: Color, Urine Yellow (Yellow); Glucose, Dipstick Normal (Normal); Ketone-Dipstick Negative (Negative); Leukocyte Esterase-Dipstick 500 /ul (Negative); Nitrite-Dipstick Negative (Negative); Occult Blood-Urine 25 /ul (Negative); Protein-Dipstick 100 mg/dl (Negative); Specific Gravity, Urine 1.010 (1.002-1.030); Urine Bilirubin Dipstick Negative (Negative)
[2025-08-29 14:45] LABS: Squamous Epithelial Cells - UA 0-5 SEEN /hpf (5-10)
[2025-08-29 15:04] LABS: Anion Gap 12 (5-15); BUN 37 mg/dL (4-19); BUN/Creat Ratio 26.6 RATIO (10-20); Calcium,Total 10.4 mg/dL (7.6-11.0); Carbon Dioxide 25.8 mmol/L (21.0-32.0); Chloride 103 mmol/L (98-108); Estimated Creatinine Clearance 25.56 ml/min (50-250); Glucose 112 mg/dL (70-99); Magnesium 2.4 mg/dL (1.5-2.2); Potassium 4.1 mmol/L (3.3-5.1); Troponin T High Sensitivity 35 ng/L (<=14)
--- NOTE | 2025-08-29 16:13 | PCM.HP.STD ---
HPI - General General Date of Admission: 08/29/25 Date of Service: 08/29/25 Chief Complaint: Auditory hallucinations and bradycardia HPI Narrative TREY CALVERT, is a 80 F who presented to [facility] ED on 08/29/2025 with auditory hallucinations and bradycardia. Patient lives at home with her , daughter lives close by. Medical history significant for hypertension, hyperlipidemia, vascular disease with history of carotid endarterectomy, aorta iliac femoral bypass and bilateral renal artery stenosis, anxiety/depression, neuropathy and restless leg syndrome. Patient follows with Dr. Finnegan with neurology, last saw him in the office on 08/19. Patient and family noted at that time that patient began having auditory hallucinations about [address] Finnegan was concern for a UTI so he initiated the patient on Bactrim. Patient has completed a 1 week course of Bactrim but the auditory hallucinations have continued, so they went to urgent care today for this and were then sent to the ED here for further evaluation. In the ED she was hypertensive to the 170s systolic and importantly heart rate was found to be right around 40 bpm. She otherwise was afebrile and stable on room air at rest. EKG showed a junctional bradycardia. CBC was benign. BMP with creatinine 1.40, slightly up from baseline, was otherwise benign. ED position discussed with Dr. Peters who recommended discontinuing patient's home Toprol and diltiazem and recommended admission for further monitoring. Hospitalist was then contacted for admission. I saw the patient at bedside in the ED, and daughter were present. Patient was laying back comfortably in bed, answering most questions with short appropriate responses, in no acute distress. She denied any current auditory hallucinations. On further discussion with and daughter, patient has had memory loss and difficulty with speech for the last year or so. They note that the things developed fairly quickly about a year ago and have only mildly progressed since then. However, the auditory hallucinations been going on for the past 3 weeks are new for her. They seem to be worse at night and are distressing for the patient. Patient sleeps frequently during the day and will then have difficulty sleeping at night. Her duloxetine dose was decreased by Dr. Finnegan at the recent office visit, otherwise no other medication changes noted. On my evaluation patient's heart rate was in the mid to high 50s and P waves were noted on telemetry. Patient denied any palpitations. Denied any chest pain or shortness of breath. No other acute concerns at this time. Will be admitted for further management. [facility] Medical History Anxiety Low iron Bladder disease Loss of consciousness History of ulceration Gastroparesis Depression History of edema Wears hearing aid Post-menopausal DVT (deep venous thrombosis) Restless legs Back pain Injury of head and neck Former smoker Shortness of breath on exertion History of pain when walking History of stress test Hypertension Transaminitis Acute on chronic respiratory failure with hypoxemia Acute respiratory failure GERD (gastroesophageal reflux disease) Former smoker High cholesterol Arthritis Osteoarthritis Home Medications ?Medication ?Instructions ?Recorded ?Last Taken ?Type rosuvastatin 40 mg tablet 40 mg PO QHS CHOLESTEROL 06/30/21 08/27/24 History potassium chloride 20 mEq 40 meq (2 x 20 mEq) PO DAILY 07/01/21 08/27/24 Rx tablet,extended release(part/cryst) potassium #0 tabs menthol 4 % topical gel (Biofreeze 1 applic topical DAILY PRN PAIN 07/21/21 Unknown History (menthol)) pramipexole 1 mg tablet 0.5 mg PO BID RLS 06/04/24 06/13/25 History pantoprazole 40 mg tablet,delayed 40 mg PO BID #120 tabs 12/06/24 Unknown Rx release cholecalciferol (vitamin D3) 25 25 mcg PO DAILY 03/18/25 Unknown History mcg (1,000 unit) capsule (Vitamin D3) vitamin B complex 1 cap PO DAILY 03/18/25 Unknown History aspirin 81 mg tablet 81 mg PO BID 04/14/25 08/29/25 History sucralfate 1 gram tablet 1 g PO BID #180 tabs 05/19/25 Unknown Rx chlorthalidone 50 mg tablet 50 mg PO QDAY 08/19/25 Unknown History diltiazem HCl 360 mg 360 mg PO QDAY 08/19/25 Unknown History capsule,extended release 24 hr (Cardizem CD) duloxetine 60 mg capsule,delayed 60 mg PO QHS #90 caps 08/19/25 Unknown Rx release leucovorin 4 mg-pyridoxal 1 tab-cap PO QDAY #90 tabs 08/19/25 Unknown Rx phosphate 50 mg-mecobalamin 2 mg tablet (Folinic-Plus) metoprolol succinate 25 mg 25 mg PO QDAY 08/19/25 Unknown History tablet,extended release 24 hr nitrofurantoin 1 cap PO BID 08/28/25 Unknown History monohydrate/macrocrystals 100 mg capsule diltiazem HCl 360 mg capsule,24 360 mg PO DAILY heart 08/29/25 Unknown History hr,extended release Allergy/AdvReac Type Severity Reaction Status Date / Time meperidine HCl (From Demerol) Allergy Severe Swelling Verified 08/29/25 13:24 poison adelaide extract (Poison Allergy Rash Verified 08/29/25 13:24 Adelaide Extract) atorvastatin calcium (From AdvReac Upset Verified 08/29/25 13:24 Lipitor) Stomach cefaclor (From Ceclor) AdvReac PALPITATIONS, Verified 08/29/25 13:24 CHEST PRESSURE, SHORT OF BREATH doxycycline AdvReac Upset Verified 08/29/25 13:24 Stomach hydrocodone AdvReac Upset Verified 08/29/25 13:24 Stomach Family History Mother Arthritis CVA (cerebral vascular accident) Father Myocardial infarction Heart disease Hypertension High cholesterol Surgical History History of lumbar fusion Hx of total hip arthroplasty History of esophagogastroduodenoscopy (EGD) History of appendectomy History of tonsillectomy Hx of colonoscopy Hx of bilateral breast reduction surgery Hx of surgical procedure History of hip replacement History of toe surgery History of renal stent History of cataract surgery History of knee replacement History of extraction of renal calculus History of carotid endarterectomy History of jovht-ucian-muvykbw bypass Social History Smoking Status: Former smoker Tobacco: How many years used: 40 Electronic Cigarette Use: not used how long ago did patient quit smokin years ago second hand exposure: No alcohol intake: current alcohol intake frequency: holidays/special occasions only substance use type: does not use alan/roman catholic: None seatbelt use: sometimes ROS Constitutional Constitutional: Reports fatigue; Denies chills or fever(s) Eyes Eyes: Denies change in vision Cardiovascular Cardiovascular: Denies chest pain Respiratory/Chest Respiratory/Chest: Denies shortness of breath at rest Gastrointestinal Gastrointestinal: Denies abdominal pain Genitourinary Genitourinary: Denies dysuria Musculoskeletal Musculoskeletal: Denies arthralgias or myalgias Neurologic Neurologic: Denies dizziness, focal weakness or headache(s) Vital Signs Vital Signs Vital Signs: 08/29/25 13:23 08/29/25 13:53 08/29/25 14:13 Temperature 97.8 F Temperature Source Oral Pulse Rate 39 L Respiratory Rate 18 Respiratory Effort Normal Non-Labored Blood Pressure 148/61 H Blood Pressure Mean 90 Pulse Ox 98 Oxygen Delivery Method Room Air Room Air 08/29/25 14:14 08/29/25 14:22 08/29/25 15:00 Temperature 97.8 F 97.8 F Temperature Source Oral Oral Pulse Rate 40 L 39 L 38 L Respiratory Rate 20 H 19 H 18 Respiratory Effort Blood Pressure 175/56 H 150/47 H 166/85 H Blood Pressure Mean 95 81 112 Pulse Ox 100 97 96 Oxygen Delivery Method Room Air Room Air Room Air 08/29/25 16:00 08/29/25 16:12 Temperature 97.8 F Temperature Source Pulse Rate 41 L 41 L Respiratory Rate 18 Respiratory Effort Blood Pressure 173/84 H 173/84 H Blood Pressure Mean 113 113 Pulse Ox 95 95 Oxygen Delivery Method Room Air Weight Weight: 58.06 kg Body Mass Index (BMI) 28.7 Physical Exam Const alert, no apparent distress and average body habitus Constitutional Narrative: Elderly female, mildly fatigued appearing, alert and answering most questions with short appropriate responses, laying back comfortably in bed, in no acute distress. General Appearance: cooperative and comfortable HEENT normocephalic, head/scalp atraumatic, hearing grossly normal bilaterally, nasal mucous membranes and turbinates normal and moist oral mucous membranes Eyes PERRL, EOMs intact bilaterally and conjunctivae normal Neck full ROM Chest inspection of chest normal Resp normal respiratory effort, normal air movement, no use of accessory muscles and clear to auscultation bilaterally Cardio no murmurs and peripheral pulses 2+ throughout Cardio Narrative: Bradycardic, regular rhythm. GI normal to inspection, nondistended, normoactive bowel sounds, soft to palpation, non-tender and non-distended Back/Spine normal ROM Extremity normal to inspection and no pedal edema Skin no rashes or lesions noted Neuro moves all extremities and no focal motor deficits Psych mental status grossly normal Results Lab / Micro Data 08/29/25 14:05 08/29/25 14:05 Labs: Laboratory Results - last 24 hr 08/29/25 14:05: WBC 8.0, RBC 4.60, Hgb 14.1, Hct 41.7, MCV 90.7, MCH 30.7, MCHC 33.8, RDW Std Deviation 45.1 H, RDW Coeff of Davidson 13.6, Plt Count 167, MPV 10.2, Immature Gran % (Auto) 0.300, Neut % (Auto) 67.4, Lymph % (Auto) 23.3, [place] % (Auto) 6.5, Eos % (Auto) 1.9, Baso % (Auto) 0.6, Absolute Neuts (auto) 5.4, Absolute Lymphs (auto) 1.86, Nucleated RBC % 0, PT 13.4, INR 1.0, APTT 26.7, Sodium 141, Potassium 4.1, Chloride 103, Carbon Dioxide 25.8, Anion Gap 12, BUN 37 H, Creatinine 1.40 H, Estim Creat Clear Calc 25.56 L, Est GFR (MDRD) Non-Af 38 L, BUN/Creatinine Ratio 26.6 H, Glucose 112 H, Calcium 10.4, Magnesium 2.4 H, Troponin T High Sens 35 H 08/29/25 14:30: Urine Color Yellow, Urine Clarity Cloudy, Urine pH 6.5, Ur Specific [place] 1.010, Urine Protein 100 H, Urine Glucose (UA) Normal, Urine Ketones Negative, Urine Occult Blood 25 H, Urine Nitrite Negative, Urine Bilirubin Negative, Urine Urobilinogen Normal, Ur Leukocyte Esterase 500 H, Urine RBC 0 SEEN, Urine WBC >100 SEEN, Ur Squamous Epith Cells 0-5 SEEN, Urine Bacteria 0 SEEN, Urine Mucus 0 SEEN Imaging Radiology Impression Chest X-Ray 08/29/25 14:14 IMPRESSION: Mild increased markings at the lung bases suggestive of bibasilar linear atelectasis. Reading Location: [facility] Assessment & Plan Assessment/Plan (1) Junctional bradycardia: (2) Hallucinations: PLAN: Plan Patient is an 80-year-old female who presented to [facility] ED on 08/29/2025 with auditory hallucinations and bradycardia. 1. Junctional bradycardia ? Admit under observation status to PCU. Cardiology consulted. Heart rate in the low 40s in the ED. EKG showed junctional bradycardia with no P waves noted. Suspect secondary to AV liberty blockade from home diltiazem and Toprol. Per cardiology, will hold diltiazem and Toprol. Monitor cardiac telemetry. It appears the patient was on both of these medications for hypertension as below. Will likely plan to hold both medications on discharge and treat hypertension as below. 2. Auditory hallucinations with suspected dementia ? On chart review, patient reported auditory hallucinations at office visit with her PCP on 07/25 and this was reinforced in her appointment with Dr. Finnegan on 08/19. UA was mildly infectious appearing on 08/19 and she completed a 7-day course of Bactrim with no improvement in auditory hallucinations. Notably no visual hallucinations noted. On further discussion with and daughter, patient has had memory loss and difficulty with speech now for over a year. Given her significant vascular disease as below, highest suspicion is for vascular dementia with new onset auditory hallucinations. Family reports worse hallucinations at night, and patient sleeps more during the day and less at night. Discussed with family and will initiate Seroquel 25 mg at night here. Okay to continue home pramipexole and duloxetine as below. Speech therapy consulted for cognitive evaluation. 3. Hypertension, bilateral renal artery stenosis ? Hypertensive to the 170s systolic on admit. Patient has known history of bilateral renal artery stenosis, though I am unfortunately unable to see the renal ultrasound report. Per PCP note from 07/25, plan initially was to see vascular surgery at the outside hospital for consideration for stenting. However, vascular surgery there wanted to adequate blood pressure control with 3 antihypertensives prior to consideration of surgery, so patient is now planning to see Dr. Lemos in the office for second opinion at the end of August. Appears that current home regimen is chlorthalidone, diltiazem and metoprolol. Was previously started on losartan but had worsening renal function so this was discontinued. Will continue home chlorthalidone 50 mg daily and initiate amlodipine 5 mg daily at this time. IV hydralazine ordered for SBP greater than 170. If blood pressures remain high, could consider starting p.o. hydralazine prior to discharge. Chronic medical conditions: ? Peripheral neuropathy: Continue home duloxetine. ? Restless leg syndrome: Continue home pramipexole. ? GERD with peptic ulcer disease: Follows with Dr. Sorensen. EGD in March showed nonbleeding gastric ulcers as well as chronic duodenitis. Continue home PPI and sucralfate. ? History of carotid disease s/p carotid endarterectomy, history of aorto iliac femoral bypass ? History of lumbar fusion ? Recent history of nephrolithiasis: Follows with Dr. Renner. Had lithotripsy done in early June for left-sided kidney stone with good result. DVT prophylaxis: Heparin subcu CODE STATUS: Full code, verified Expected disposition: Home, 1 to 2 days Total clinical time spent by myself addressing the patient's medical issues, reviewing all the data, and collaborating with patient's care team: 84 minutes. Charges/Coding Visit Charges Inpatient E&M: 35050 Init Hosp L3
[2025-08-29 16:19] LABS: Troponin T High Sens 2 HR 30 ng/L (<=14)
[2025-08-29] MEDS: 0.9% Saline Lock 10 ML Syringe IV (17:58)
[2025-08-29 20:48] LABS: Troponin T High Sens 4 HR 39 ng/L (<=14)
[2025-08-29] MEDS: Aspirin E.C. 81 MG Tablet PO (22:07)
[2025-08-29] MEDS: Heparin Injection (Vial) 5,000 UNIT/ML VIAL 5000 UNIT SC (22:08)
[2025-08-30 05:10] VITALS: BP 159/32; PULSE 50; RESP 16; TEMP 35.9; O2SAT 96
[2025-08-30 06:24] LABS: Hematocrit 35.1 % (37-47); Hemoglobin 12.0 g/dL (12.0-15.0); Mean Corp Hgb Conc 34.2 g/dL (32-36); Mean Corpuscular Volume 88.9 fL (81-99); Mean Platelet Vol. 10.3 fl (6.2-12.0); Platelet Count 162 K/mm3 (150-450); RBC Distribution Width CV 13.4 % (11.6-14.6); RBC Distribution Width SD 43.9 fl (35.1-43.9); Red Blood Count 3.95 M/mm3 (4.2-5.4); White Blood Count 6.5 K/mm3 (4.4-11.0)
[2025-08-30 06:48] LABS: Anion Gap 11 (5-15); BUN 34 mg/dL (4-19); BUN/Creat Ratio 30.0 RATIO (10-20); Calcium,Total 9.5 mg/dL (7.6-11.0); Carbon Dioxide 24.8 mmol/L (21.0-32.0); Chloride 106 mmol/L (98-108); Estimated Creatinine Clearance 32.05 ml/min (50-250); Glucose 95 mg/dL (70-99); Potassium 3.2 mmol/L (3.3-5.1)
--- NOTE | 2025-08-30 08:52 | EKG12_ITS ---
Test Reason : ARRYTH
--- NOTE | 2025-08-30 09:18 | PCM.CONS.C ---
Assessment & Plan Assessment/Plan (1) Junctional bradycardia: PLAN: Patient presented with junctional bradycardia due to beta-paula and calcium channel paula. This has resolved. EKG from this morning demonstrates normal sinus rhythm. (2) Hypertension: PLAN: Will continue with amlodipine 5 mg a day, losartan 50 mg a day. DC Diltiazem and Metoprolol PLAN: Plan Recommend discharge for outpatient follow-up. HPI Consult Data Date of Consult: 08/30/25 HPI Narrative HPI Narrative: TREY CALVERT, is a 80 F who presented [facility] ED on 08/29/2025 with auditory hallucinations and bradycardia. She has a history of hypertension hyperlipidemia carotid endarterectomy aortofemoral bypass anxiety and depression who had been having auditory hallucinations for few weeks. She went to the urgent care after developing urinary tract infection had her heart rate checked and was noted to be slow and so was sent to the emergency room and EKG done there demonstrated junctional bradycardia she was admitted for further management. Electrolytes were noted to be normal. Her beta-paula and calcium channel paula were held and this morning she appears to be in sinus rhythm with normal blood pressure. She denies any chest pain or shortness of breath or paroxysmal nocturnal dyspnea or pedal edema. [facility] Medical History Anxiety Low iron Bladder disease Loss of consciousness History of ulceration Gastroparesis Depression History of edema Wears hearing aid Post-menopausal DVT (deep venous thrombosis) Restless legs Back pain Injury of head and neck Former smoker Shortness of breath on exertion History of pain when walking History of stress test Hypertension Transaminitis Acute on chronic respiratory failure with hypoxemia Acute respiratory failure GERD (gastroesophageal reflux disease) Former smoker High cholesterol Arthritis Osteoarthritis Home Medications ?Medication ?Instructions ?Recorded ?Last Taken ?Type rosuvastatin 40 mg tablet 40 mg PO QHS CHOLESTEROL 06/30/21 08/27/24 History potassium chloride 20 mEq 40 meq (2 x 20 mEq) PO DAILY 07/01/21 08/27/24 Rx tablet,extended release(part/cryst) potassium #0 tabs menthol 4 % topical gel (Biofreeze 1 applic topical DAILY PRN PAIN 07/21/21 Unknown History (menthol)) pramipexole 1 mg tablet 0.5 mg PO BID RLS 06/04/24 06/13/25 History pantoprazole 40 mg tablet,delayed 40 mg PO BID #120 tabs 12/06/24 Unknown Rx release cholecalciferol (vitamin D3) 25 25 mcg PO DAILY 03/18/25 Unknown History mcg (1,000 unit) capsule (Vitamin D3) vitamin B complex 1 cap PO DAILY 03/18/25 Unknown History aspirin 81 mg tablet 81 mg PO BID 04/14/25 08/29/25 History sucralfate 1 gram tablet 1 g PO BID #180 tabs 05/19/25 Unknown Rx chlorthalidone 50 mg tablet 50 mg PO QDAY 08/19/25 Unknown History diltiazem HCl 360 mg 360 mg PO QDAY 08/19/25 Unknown History capsule,extended release 24 hr (Cardizem CD) duloxetine 60 mg capsule,delayed 60 mg PO QHS #90 caps 08/19/25 Unknown Rx release leucovorin 4 mg-pyridoxal 1 tab-cap PO QDAY #90 tabs 08/19/25 Unknown Rx phosphate 50 mg-mecobalamin 2 mg tablet (Folinic-Plus) metoprolol succinate 25 mg 25 mg PO QDAY 08/19/25 Unknown History tablet,extended release 24 hr nitrofurantoin 1 cap PO BID 08/28/25 Unknown History monohydrate/macrocrystals 100 mg capsule diltiazem HCl 360 mg capsule,24 360 mg PO DAILY heart 08/29/25 Unknown History hr,extended release Allergy/AdvReac Type Severity Reaction Status Date / Time meperidine HCl (From Demerol) Allergy Severe Swelling Verified 08/29/25 13:24 poison adelaide extract (Poison Allergy Rash Verified 08/29/25 13:24 Adelaide Extract) atorvastatin calcium (From AdvReac Upset Verified 08/29/25 13:24 Lipitor) Stomach cefaclor (From Ceclor) AdvReac PALPITATIONS, Verified 08/29/25 13:24 CHEST PRESSURE, SHORT OF BREATH doxycycline AdvReac Upset Verified 08/29/25 13:24 Stomach hydrocodone AdvReac Upset Verified 08/29/25 13:24 Stomach Family History Mother Arthritis CVA (cerebral vascular accident) Father Myocardial infarction Heart disease Hypertension High cholesterol Surgical History History of lumbar fusion Hx of total hip arthroplasty History of esophagogastroduodenoscopy (EGD) History of appendectomy History of tonsillectomy Hx of colonoscopy Hx of bilateral breast reduction surgery Hx of surgical procedure History of hip replacement History of toe surgery History of renal stent History of cataract surgery History of knee replacement History of extraction of renal calculus History of carotid endarterectomy History of fkzsx-isias-owgshrq bypass Social History Smoking Status: Former smoker Tobacco: How many years used: 40 Electronic Cigarette Use: not used how long ago did patient quit smokin years ago second hand exposure: No alcohol intake: current alcohol intake frequency: holidays/special occasions only substance use type: does not use alan/alevism: None seatbelt use: sometimes ROS Constitutional Constitutional: Denies fever(s) or weight loss Eyes Eyes: Reports systems reviewed and no addt'l complaints, except as documented ENT HEENT: Reports systems reviewed and no addt'l complaints, except as documented Cardiovascular Cardiovascular: Denies chest pain at rest, chest pain with activity, dyspnea at rest, dyspnea on exertion, edema, palpitations or paroxysmal nocturnal dyspnea Respiratory/Chest Respiratory/Chest: Denies dyspnea on exertion, productive cough, shortness of breath at rest or shortness of breath with exertion Gastrointestinal Gastrointestinal: Denies change in bowel habits, nausea, vomiting or weight changes Genitourinary Genitourinary: Denies difficulty urinating Musculoskeletal Musculoskeletal: Denies joint stiffness or muscle weakness Integumentary Integumentary: Denies lesions Neurologic Neurologic: Reports dizziness; Denies syncope Psychiatric Psychiatric: Denies anxiety Endocrine Endocrinology: Denies excessive sweating or fatigue Hematologic/Lymphatic Hematologic/Lymphatic: Denies anemia Allergic/Immunologic Allergic/Immunologic: Denies seasonal rhinorrhea Physical Exam Const healthy appearing Orientation / Consciousness: awake HEENT normocephalic Eyes PERRL Chest inspection of chest normal Cardio regular rate and regular rhythm GI normal to inspection, nondistended, normoactive bowel sounds Extremity normal to inspection Objective Data Vital Signs: Vital Signs Temp Pulse Resp BP Pulse Ox O2 Del Method 96.6 F L 50 L 16 159/32 H 96 Room Air 08/30/25 05:10 08/30/25 05:10 08/30/25 05:10 08/30/25 05:10 08/30/25 05:10 08/30/25 08:11 Oxygen Delivery Method Room Air Weight: 131 lb 4.8 oz Body Mass Index (BMI) 29.4 Intake & Output: Intake and Output for Last 24 Hours 08/28/25 08/29/25 08/30/25 23:59 23:59 23:59 Intake Total 750 / 750 Balance 750 / 750 Lab / Micro Data 08/30/25 05:55 08/30/25 05:55 Labs: Laboratory Results - last 24 hr 08/29/25 14:05: WBC 8.0, RBC 4.60, Hgb 14.1, Hct 41.7, MCV 90.7, MCH 30.7, MCHC 33.8, RDW Std Deviation 45.1 H, RDW Coeff of [place] 13.6, Plt Count 167, MPV 10.2, Immature Gran % (Auto) 0.300, Neut % (Auto) 67.4, Lymph % (Auto) 23.3, [place] % (Auto) 6.5, Eos % (Auto) 1.9, Baso % (Auto) 0.6, Absolute Neuts (auto) 5.4, Absolute Lymphs (auto) 1.86, Nucleated RBC % 0, PT 13.4, INR 1.0, APTT 26.7, Sodium 141, Potassium 4.1, Chloride 103, Carbon Dioxide 25.8, Anion Gap 12, BUN 37 H, Creatinine 1.40 H, Estim Creat Clear Calc 25.56 L, Est GFR (MDRD) Non-Af 38 L, BUN/Creatinine Ratio 26.6 H, Glucose 112 H, Calcium 10.4, Magnesium 2.4 H, Troponin T High Sens 35 H 08/29/25 14:30: Urine Color Yellow, Urine Clarity Cloudy, Urine pH 6.5, Ur Specific [place] 1.010, Urine Protein 100 H, Urine Glucose (UA) Normal, Urine Ketones Negative, Urine Occult Blood 25 H, Urine Nitrite Negative, Urine Bilirubin Negative, Urine Urobilinogen Normal, Ur Leukocyte Esterase 500 H, Urine RBC 0 SEEN, Urine WBC >100 SEEN, Ur Squamous Epith Cells 0-5 SEEN, Urine Bacteria 0 SEEN, Urine Mucus 0 SEEN 08/29/25 15:49: Troponin T Hi Sens 2 Hr 30 H 08/29/25 19:42: Troponin T Hi Sens 4Hr 39 H 10/18/25 05:55: WBC 6.5, RBC 3.95 L, Hgb 12.0, Hct 35.1 L, MCV 88.9, MCH 30.4, MCHC 34.2, RDW Std Deviation 43.9, RDW Coeff of [place] 13.4, Plt Count 162, MPV 10.3, Sodium 143, Potassium 3.2 L, Chloride 106, Carbon Dioxide 24.8, Anion Gap 11, BUN 34 H, Creatinine 1.13, Estim Creat Clear Calc 32.05 L, Est GFR (MDRD) Non-Af 49 L, BUN/Creatinine Ratio 30.0 H, Glucose 95, Calcium 9.5 Micro: Microbiology 08/29/25 14:30 Urine, Clean Catch Urine Culture - Preliminary Gram negative reggie 08/29/25 15:44 Urine, Midstream Urine Culture - Preliminary Gram negative reggie Cardiology Labs/Tests 08/29/25 14:05: WBC 8.0, RBC 4.60, Hgb 14.1, Hct 41.7, MCV 90.7, MCH 30.7, MCHC 33.8, Plt Count 167, MPV 10.2, Immature Gran % (Auto) 0.300, Neut % (Auto) 67.4, Lymph % (Auto) 23.3, [place] % (Auto) 6.5, Eos % (Auto) 1.9, Baso % (Auto) 0.6, Absolute Neuts (auto) 5.4, Nucleated RBC % 0, PT 13.4, INR 1.0, APTT 26.7, Sodium 141, Potassium 4.1, Chloride 103, Carbon Dioxide 25.8, Anion Gap 12, BUN 37 H, Creatinine 1.40 H, Est GFR (MDRD) Non-Af 38 L, BUN/Creatinine Ratio 26.6 H, Glucose 112 H, Calcium 10.4, Magnesium 2.4 H 08/29/25 14:30: Urine Color Yellow, Urine Clarity Cloudy, Urine pH 6.5, Ur Specific [place] 1.010, Urine Protein 100 H, Urine Glucose (UA) Normal, Urine Ketones Negative, Urine Occult Blood 25 H, Urine Nitrite Negative, Urine Bilirubin Negative, Urine Urobilinogen Normal, Ur Leukocyte Esterase 500 H, Urine RBC 0 SEEN, Urine WBC >100 SEEN 08/30/25 05:55: WBC 6.5, RBC 3.95 L, Hgb 12.0, Hct 35.1 L, MCV 88.9, MCH 30.4, MCHC 34.2, Plt Count 162, MPV 10.3, Sodium 143, Potassium 3.2 L, Chloride 106, Carbon Dioxide 24.8, Anion Gap 11, BUN 34 H, Creatinine 1.13, Est GFR (MDRD) Non-Af 49 L, BUN/Creatinine Ratio 30.0 H, Glucose 95, Calcium 9.5 Rhythm: EKG: ECHO: Stress Test: Cardiac Cath: PCI: CT Surgery: Holter monitor: EPS: PPM: CXR: Chest CT Scan: Radiography Diagnostic Testing: Radiology Impression Chest X-Ray 08/29/25 14:14 IMPRESSION: Mild increased markings at the lung bases suggestive of bibasilar linear atelectasis. Reading Location: [facility] MAHAMED Risk Score for UA/STEMI Assesmment (YES = 1) Risk Stratification Applicable: No
[2025-08-30 09:40] VITALS: BP 129/35; PULSE 58; RESP 18; TEMP 36.3; O2SAT 96
[2025-08-30] MEDS: Aspirin E.C. 81 MG Tablet PO (09:42)
[2025-08-30] MEDS: Cholecalciferol (VIT D3) 25 MCG TABLET (1,000 UNITS) PO (09:44)
[2025-08-30] MEDS: Heparin Injection (Vial) 5,000 UNIT/ML VIAL 5000 UNIT SC (09:44)
--- NOTE | 2025-08-30 10:13 | DCINST_ITS ---
Discharge Instructions
--- NOTE | 2025-08-30 10:13 | PCM.DC ---
Discharge Instructions DC O2, CPAP, BIPAP needs Home O2 Discharge instructions: No Dressing / Incision Discharge Activity: Return to Normal Activity Weight Bearing Status: Weight bearing as tolerated Dressing / Incision Call your doctor if you observe: Fever of 101 or Higher, Coldness, Increased Pain, Numbness or Tingling, Change in Color, Inability to urinate, Inability to have a bowel movement, Shortness of breath, Dizziness, Fainting spells, Swelling in the ankles, Chest pain, Prolonged hiccupping, Increased palpitations (irregular heartbeat) and Calf discomfort Follow Up Care When: IN 2 WEEKS Test Results: Test results from this visit will be discussed in further detail at your follow-up appointment, if applicable. Discharge Plan Admission Admit Date/Time: 08/29/25 16:13 Attending Provider: Diego Gr Primary Care Provider: Marcelo Borges Consulting Providers: Ashkan Grubbs; Christopher Peters; Deepak Sánchez Discharge Orders/Prescriptions Prescriptions: New losartan 50 mg Tablet 50 mg PO DAILY 30 Days Qty: 30 2RF amlodipine 5 mg Tablet 5 mg PO DAILY 30 Days Qty: 30 2RF Continued pramipexole 1 mg tablet 0.5 mg PO BID nitrofurantoin monohyd/m-cryst 100 mg capsule 1 cap PO BID aspirin 81 mg tablet 81 mg PO BID duloxetine 60 mg capsule,delayed release(DR/EC) 60 mg PO QHS Qty: 90 2RF Folinic-Plus 4-50-2 mg tablet 1 tab-cap PO QDAY Qty: 90 0RF rosuvastatin 40 mg tablet 40 mg PO QHS potassium chloride 20 MEQ tablet 40 meq PO DAILY Qty: 0 0RF Biofreeze (menthol) 4 % Gel 1 applic TOPICAL DAILY PRN (Reason: PAIN) cholecalciferol (vitamin D3) [Vitamin D3] 25 mcg (1,000 unit) capsule 25 mcg PO DAILY vitamin B complex Capsule 1 cap PO DAILY pantoprazole 40 mg Tablet,Delayed Release (Dr/Ec) 40 mg PO BID Qty: 120 0RF sucralfate 1 gram tablet 1 g PO BID Qty: 180 1RF Changed chlorthalidone 50 mg tablet 25 mg PO QDAY 30 Days Qty: 15 0RF Discontinued diltiazem HCl [Cardizem CD] 360 mg capsule,extended release 24hr 360 mg PO QDAY metoprolol succinate 25 mg tablet extended release 24 hr 25 mg PO QDAY diltiazem HCl 360 mg capsule,extended release 24 hr 360 mg PO DAILY Referrals / Follow Up: Marcelo Borges MD [Primary Care Provider, Family Practice] Ronnie Hsieh PA [Med Staff - [facility] Practice Prof, Cardiology] - Within 2 Weeks Disposition Disposition (needs filled in before D/C Order can be placed): Home, Self Care
--- NOTE | 2025-08-30 10:24 | PCM.DC.SUM ---
Providers Date of Admission: 08/29/25 Date of Discharge: 08/30/25 Primary Care Physician: Dr. Marcelo Borges MD Consultations 08/29/25 16:58 Consult: Cardiology Routine Consulting Provider: Christopher Peters Reason for Consult: junctional bradycardia EMERGENT Consult: No MD Notified: Yes Date Notified: 08/29/25 Time Notified: 16:20 Method of Notification: ED Physician Initiated Reason For Visit: JUNCTIOAL BRADYCARDIA Diagnosis Discharge Diagnosis (1) Junctional bradycardia: Status: Acute Code(s): R00.1 - Bradycardia, unspecified (2) Hypertension: Status: Chronic Code(s): I10 - Essential (primary) hypertension Plan Patient is an 80-year-old female who presented to [facility] ED on 08/29/2025 with auditory hallucinations and bradycardia. 1. Junctional bradycardia ? Admit under observation status to PCU. Cardiology consulted. Heart rate in the low 40s in the ED. EKG showed junctional bradycardia with no P waves noted. Suspected due to diltiazem and metoprolol which were discontinued. Patient was monitored on telemetry and heart rate improved. 08/30: Patient was evaluated by test clerk. EKG from the morning shows NSR. Continue amlodipine 5 mg daily and spironolactone 50 mg daily. Metoprolol and diltiazem were discontinued. Patient discharged advised to follow-up with cardiology outpatient. 2. Auditory hallucinations with suspected dementia: ? On chart review, patient reported auditory hallucinations at office visit with her PCP on 07/25 and this was reinforced in her appointment with Dr. Finnegan on 08/19. UA was mildly infectious appearing on 08/19 and she completed a 7-day course of Bactrim with no improvement in auditory hallucinations. Notably no visual hallucinations noted. 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 Advised follow-up with neurologist. Patient was seen by speech therapist for cognitive evaluation. No acute significant difference in cognition found. 3. Hypertension, bilateral renal artery stenosis ? Hypertensive to the 170s systolic on admit. Patient has known history of bilateral renal artery stenosis. As per PCP note from 07/25, plan initially was to see vascular surgery at the outside hospital for consideration for stenting. However, vascular surgery there wanted to adequate blood pressure control with 3 antihypertensives prior to consideration of surgery, so patient is now planning to see Dr. Lemos in the office for second opinion at the end of August. Appears that current home regimen is chlorthalidone, diltiazem and metoprolol. Patient on chlorthalidone 25 mg daily, amlodipine and losartan as per test clerk recommendation. Blood pressure is controlled. 08/30: Blood pressure was 129/35. Chronic medical conditions: ? Peripheral neuropathy: Continue home duloxetine. ? Restless leg syndrome: Continue home pramipexole. ? GERD with peptic ulcer disease: Follows with Dr. Sorensen. EGD in March showed nonbleeding gastric ulcers as well as chronic duodenitis. Continue home PPI and sucralfate. ? History of carotid disease s/p carotid endarterectomy, history of aorto iliac femoral bypass ? History of lumbar fusion ? Recent history of nephrolithiasis: Follows with Dr. Renner. Had lithotripsy done in early June for left-sided kidney stone with good result. DVT prophylaxis: Heparin subcu CODE STATUS: Full code, verified Discharge medication reconciliation done. Discharge follow-up instructions completed. Discharge process discussed with the patient and all questions were answered to patient's satisfaction. Follow with PCP in 1 to 2 weeks Total time spent, exact 35 minutes on discharge meds reconciliation, examination, coordination of care with nurses and ancillary staff, review of imaging and blood test and discussion with the patient on follow-up instructions. Medications at Discharge Home Medications rosuvastatin 40 mg tablet 40 mg PO QHS CHOLESTEROL 06/30/21 potassium chloride 20 mEq tablet,extended release(part/cryst) 40 meq (2 x 20 mEq) PO DAILY potassium #0 tabs 07/01/21 menthol 4 % topical gel (Biofreeze (menthol)) 1 applic topical DAILY PRN PAIN 07/21/21 pramipexole 1 mg tablet 0.5 mg PO BID RLS 06/04/24 pantoprazole 40 mg tablet,delayed release 40 mg PO BID #120 tabs 12/06/24 cholecalciferol (vitamin D3) 25 mcg (1,000 unit) capsule (Vitamin D3) 25 mcg PO DAILY vitamin 03/18/25 vitamin B complex 1 cap PO DAILY vitamin 03/18/25 aspirin 81 mg tablet 81 mg PO BID heart health 04/14/25 sucralfate 1 gram tablet 1 g PO BID stomach #180 tabs 05/19/25 duloxetine 60 mg capsule,delayed release 60 mg PO QHS mental health #90 caps 08/19/25 leucovorin 4 mg-pyridoxal phosphate 50 mg-mecobalamin 2 mg tablet (Folinic-Plus) 1 tab-cap PO QDAY #90 tabs 08/19/25 nitrofurantoin monohydrate/macrocrystals 100 mg capsule 1 cap PO BID 08/28/25 amlodipine 5 mg tablet 5 mg PO DAILY 30 days #30 tabs 08/30/25 chlorthalidone 50 mg tablet 25 mg (1/2 x 50 mg) PO QDAY 30 days #15 tabs 08/30/25 losartan 50 mg tablet 50 mg PO DAILY 30 days #30 tabs 08/30/25 Physical Exam Narrative Seen and examined Patient was admitted for junctional bradycardia. Toprol and diltiazem were discontinued. Her heart rate is back to normal rate. General: Alert, Oriented x3, Cooperative HEENT: Atraumatic, PERRLA, EOMI, Normocephalic. Oral: Hard of hearing. No Gingival or Mucosal Lesions/ Ulcerations Neck: Supple, No JVD, Negative Carotid Bruits Chest wall/Lungs: Air entry diminished in bilateral lung bases. No crepitation/rhonchi Cardiovascular: Regular rate and rhythm, Normal S1,S2, No M/G/R Abdomen: Bowel Sounds Present, Soft, Non Tender, Non-Distended : No dysuria. No renal angle tenderness. No suprapubic tenderness. Extremities: No edema, Capillary Refill Less than 3 Seconds Skin: No rashes, No breakdown Musculoskeletal: No Tenderness to Palpation of Joints or Extremities Neurological: Cranial nerves II-XII grossly intact, DTR 2+/4. No acute focal neurological deficit. Psych/Mental Status: Normal Affect, Appropriate. Weight / BMI Weight Weight: 131 lb 4.8 oz Body Mass Index (BMI) 29.4 ABG / Lab / Microbiology Data 08/30/25 05:55 08/30/25 05:55 Laboratory: Laboratory Results - last 24 hr 08/29/25 19:42: Troponin T Hi Sens 4Hr 39 H 08/30/25 05:55: WBC 6.5, RBC 3.95 L, Hgb 12.0, Hct 35.1 L, MCV 88.9, MCH 30.4, MCHC 34.2, RDW Std Deviation 43.9, RDW Coeff of Davidson 13.4, Plt Count 162, MPV 10.3, Sodium 143, Potassium 3.2 L, Chloride 106, Carbon Dioxide 24.8, Anion Gap 11, BUN 34 H, Creatinine 1.13, Estim Creat Clear Calc 32.05 L, Est GFR (MDRD) Non-Af 49 L, BUN/Creatinine Ratio 30.0 H, Glucose 95, Calcium 9.5 Microbiology: Microbiology 08/29/25 14:30 Urine, Clean Catch Urine Culture - Preliminary Gram negative reggie 08/29/25 15:44 Urine, Midstream Urine Culture - Preliminary Gram negative reggie Radiography Diagnostic Testing: Radiology Impression Chest X-Ray 08/29/25 14:14 IMPRESSION: Mild increased markings at the lung bases suggestive of bibasilar linear atelectasis. Reading Location: [place] [id number] D/C Instructions Weight Bearing Status: Weight bearing as tolerated Call your doctor if you observe: Fever of 101 or Higher, Coldness, Increased Pain, Numbness or Tingling, Change in Color, Inability to urinate, Inability to have a bowel movement, Shortness of breath, Dizziness, Fainting spells, Swelling in the ankles, Chest pain, Prolonged hiccupping, Increased palpitations (irregular heartbeat) and Calf discomfort DC O2, CPAP, BIPAP Needs Home O2 Discharge instructions: No When: IN 2 WEEKS Meaningful Use Info Meaningful Use Meaningful Use Diagnoses (Choose all that apply): None applicable Discharge Plan Admission Admit Date/Time: 08/29/25 16:13 Attending Provider: Diego Gr Primary Care Provider: Marcelo Borges Consulting Providers: Ashkan Grubbs; Christopher Peters; Deepak Sánchez Discharge Orders/Prescriptions Prescriptions: New losartan 50 mg Tablet 50 mg PO DAILY 30 Days Qty: 30 2RF amlodipine 5 mg Tablet 5 mg PO DAILY 30 Days Qty: 30 2RF Continued pramipexole 1 mg tablet 0.5 mg PO BID nitrofurantoin monohyd/m-cryst 100 mg capsule 1 cap PO BID aspirin 81 mg tablet 81 mg PO BID duloxetine 60 mg capsule,delayed release(DR/EC) 60 mg PO QHS Qty: 90 2RF Folinic-Plus 4-50-2 mg tablet 1 tab-cap PO QDAY Qty: 90 0RF rosuvastatin 40 mg tablet 40 mg PO QHS potassium chloride 20 MEQ tablet 40 meq PO DAILY Qty: 0 0RF Biofreeze (menthol) 4 % Gel 1 applic TOPICAL DAILY PRN (Reason: PAIN) cholecalciferol (vitamin D3) [Vitamin D3] 25 mcg (1,000 unit) capsule 25 mcg PO DAILY vitamin B complex Capsule 1 cap PO DAILY pantoprazole 40 mg Tablet,Delayed Release (Dr/Ec) 40 mg PO BID Qty: 120 0RF sucralfate 1 gram tablet 1 g PO BID Qty: 180 1RF Changed chlorthalidone 50 mg tablet 25 mg PO QDAY 30 Days Qty: 15 0RF Discontinued diltiazem HCl [Cardizem CD] 360 mg capsule,extended release 24hr 360 mg PO QDAY metoprolol succinate 25 mg tablet extended release 24 hr 25 mg PO QDAY diltiazem HCl 360 mg capsule,extended release 24 hr 360 mg PO DAILY Referrals / Follow Up: Marcelo Borges MD [Primary Care Provider, Family Practice] Ronnie Hsieh PA [Med Staff - Adv Practice Prof, Cardiology] - Within 2 Weeks Disposition Disposition (needs filled in before D/C Order can be placed): Home, Self Care Charges/Coding Visit Charges Inpatient E&M: 25605 Disch Hosp >30min
[2025-08-30] MEDS: Potassium Chloride Oral Tablet 20 MEQ 40 MEQ PO (10:31)
[2025-08-30 10:36] VITALS: BP 129/35; PULSE 58; RESP 18; TEMP 36.3; O2SAT 96
== END 2025-08-30 11:48 | disposition home or self-care (01) ==
LOC: ED 16:11 → PCU 16:50
PROVIDERS: Admitting Provider Hospitalist; Emergency Provider Emergency Medicine; PCP Family Medicine; Visit Provider Internal Medicine
DX: R00.1 Bradycardia, unspecified (principal); J96.11 Chronic respiratory failure with hypoxia; I10 Essential (primary) hypertension; E78.00 Pure hypercholesterolemia, unspecified; G62.9 Polyneuropathy, unspecified; K29.80 Duodenitis without bleeding; K21.9 Gastro-esophageal reflux disease without esophagitis; K25.9 Gastric ulcer, unspecified as acute or chronic, without hemorrhage or perforation; F41.9 Anxiety disorder, unspecified; G25.81 Restless legs syndrome; R44.0 Auditory hallucinations; F32.A Depression, unspecified; M19.90 Unspecified osteoarthritis, unspecified site; Z98.1 Arthrodesis status; Z79.2 Long term (current) use of antibiotics; Z86.718 Personal history of other venous thrombosis and embolism; Z87.891 Personal history of nicotine dependence; Z79.899 Other long term (current) drug therapy; Z79.891 Long term (current) use of opiate analgesic; Z79.82 Long term (current) use of aspirin
CPT/HCPCS: 36415; 71045; 80048; 81001; 83735; 84484; 85025; 85027; 85610; 85730; 87077; 87086; 87088; 87186; 93005; 96372; 96374; 99221; 99285; A4216; G0378

== ENCOUNTER 2025-09-02 12:00 | Outpatient (RCR) | payer MEDICARE, SELFPAY ==
--- NOTE | 2025-08-04 17:59 | HP.PTEVAL ---
Patient's Visit Information Visit Information Visit Information: TREY CALVERT is a 80 year old F referred to Physical Therapy by Dr. Ramez Lanier MD with a diagnosis of L SHLD PAIN. Date of Evaluation: 07/31/25 Physical Therapist: Kenyetta Govea PT, Cert MDT Visit Plan Frequency: 2x /Week Duration: 4-6 Weeks Plan: MRI PENDING 08/04/25. L SHLD US AT 1.3 W/CM2, 50% NEEDED TO HELP DECREASE PAIN. FOCUS ON LIGHT SCAPULAR STABILIZATION EX'S TRY PULLEYS TO INCREASE SHLD ROM POSTURE TRAINING TO DECREASE STRESS ON NECK AND SHLD'S HEP INSTRUCTION. Subjective Subjective: Work/Leisure: AND STATES IS IN GOOD HEALTH. Present symptoms: L NECK, SHLD, ARM, FOREARM AND HAND PAIN. INTERMITTENT FOREARM AND HAND NUMBNESS AND TINGLING. Present since: CHRONIC Getting Better, Getting Worse or Staying the Same: GETTING WORSE Pain Scale: Worst - 8/10 Least - 1/10 Currently: 11/22 Commenced as a result of: NO APPARENT REASON OTHER THAN ARTHRITIS Worse: USING IT, PUTTING ANY KIND OF WEIGHT ON IT, LIFTING, PUSHING, PULLING, REACHING Better: NOT USING IT, RESTING IT Disturbed sleep: NOT THAT MUCH UNLESS MOVES THE WRONG WAY OR ROLLS OVER ON IT. Previous history/Previous treatment: PHYSICAL THERAPY X 8 VISITS LAST YEAR AT [facility] - NO BETTER AND NO WORSE. SHE REPORTS SHE WAS DX'D WITH ARTHRITIS AND THE PAIN HAS BEEN WITH HER FOR A VERY LONG TIME. SHE REPORTS DR. LANIER HAS GIVEN HER 3 SHOTS IN HER SHLD BUT THEY HAVEN'T TOUCHED IT. THE LAST SHOT WAS ABOUT 3 OR 4 WKS AGO[address] RE[address] LANIER WANTS WANTS HER TO TRY PT AGAIN AND CONSULT A SURGEON. Dizziness: NO Tinnitus: YES Nausea: SOMETIMES Shortness of Breath: NOT VERY OFTEN Difficulty Swallowing: NO Gait: DOES NOT USE ANY ASSISTIVE DEVICES. HAS HAD SOME FALLS IN THE FLOWER BEDS WHEN ON UNEVEN GROUND. LAST ABOUT A MONTH AGO BUT STATES SHE DIDN'T HURT HERSELF OR GO TO THE DOCTOR FOR IT. Unexplained weight loss: NO Imaging: NONE RECENT PER PATIENT REPORT PMH/Recent major surgery: Anxiety Low iron Bladder disease Loss of consciousness History of ulceration Gastroparesis Depression History of edema Wears hearing aid Post-menopausal DVT (deep venous thrombosis) Restless legs Back pain Injury of head and neck Former smoker Shortness of breath on exertion History of pain when walking History of stress test Hypertension Transaminitis Acute on chronic respiratory failure with hypoxemia Acute respiratory failure GERD (gastroesophageal reflux disease) Former smoker High cholesterol Arthritis Osteoarthritis History of lumbar fusion Hx of total hip arthroplasty History of esophagogastroduodenoscopy (EGD) History of appendectomy History of tonsillectomy Hx of colonoscopy Hx of bilateral breast reduction surgery Hx of surgical procedure History of hip replacement History of toe surgery History of renal stent History of cataract surgery History of knee replacement History of extraction of renal calculus History of carotid endarterectomy History of rzpjy-hniig-udvnfqm bypass Objective Objective: Sitting Posture/Standing Posture: FH. RSH'S. NO TORTICOLLIS Active Correction of posture: ONLY ABLE TO PARTIALLY CORRECT. DOES NOT MAINTAIN AND INCREASES C/O LBP. NE ON NECK OR SHLD PAIN. Other Observations: INDEP GAIT AND TRANSFERS (INCLUDING SIT TO SUPINE AND REVERSE) WITHOUT AD. Sensory deficit: URIEL UE LIGHT TOUCH SENSATION GROSSLY INTACT AND SYMMETRICAL ROM deficit: R SHLD ACTIVE ELEVATION 136 DEG, L SHLD ACTIVE ELEVATION 68 DEG FLEXION. PROM L SHLD SUPINE FLEXION 95 DEG, ER 10 DEG AND IR 35 DEG WITH 50 DEG ABD. THERE IS A LOT OF SNAPPING WITH PROM BUT PATIENT DENIES PAIN WITH PROM TESTING UNTIL THE END OF THE AVAILABLE ROM. Motor deficit: R SHLD GROSSLY 3+ TO 4-/5, ELBOW 4-/5, R SHLD FLEX MEMBER [employer] STR[employer] 25 LBS. L SHLD GROSSLY 2/5, ELBOW 3+/5, [employer] STR[employer]GTH 21 LBS Reflexes: R BICEP 1+, UNABLE TO ELICIT R FOREARM, L BICEP AND L FOREARM. Dural Signs: QUESTIONABLE L UE. Cervical Mvmt Loss: Flex: MIN - INCREASES NECK - NW Pro: NIL Ext: MOD TO LOREE - INCREASES NECK - NW Ret: LOREE RSB: MOD TO LOREE LSB: LOREE - INCREASES NECK INTO L UT - NW R Rot: MOD L Rot: MOD Postural strength: POOR Palpation: TENDERNESS WITH LIGHT PALPATION OF L PROXIMAL HUMERUS, SHLD JT, AND LOWER CERVICAL SPINE REGIONS. Balance/Special Test Scores Quick DASH Score: [phone] Goals Goal 1:: DECREASE C/O NECK AND L UE SX'S BY AT LEAST 50% TO EASE ADL'S. Goal Time Frame: 4-6 Weeks Goal 2:: INCREASE NECK AND L UE FUNCTIONAL ROM TO EASE ADL'S. Goal Time Frame: 4-6 Weeks Goal 3:: IMPROVE L UE FUNCTIONAL STRENGTH TO EASE ADL'S. Goal Time Frame: 4-6 Weeks Goal 4:: INDEP HEP Goal Time Frame: 4-6 Weeks Rehabilitation Potential Physical Therapy Diagnosis: DECREASED NECK ROM, URIEL UE STIFFNESS AND WEAKNESS L>R, WITH C/O NECK AND L UE PAIN LIMITING ADL'S. Rehabilitation Potential: Questionable Anticipated Interventions Patient/Client Instruction: Educate patient on: Condition, Plan of Care and Risk Factors For the Purpose of:: To improve self management Therapeutic Exercise to Include: Strength training, Body mechanics, Postural training, Flexibilty training, Neuromotor development, Active ROM and Scapular Strength/Stabilization For the Purpose of:: To decrease pain, To increase ROM, To improve muscle performance and motor function, To improve ability to perform ADL's, To increase tolerance to activity/condition/position, To improve ability of physical actions for home/community/work/leisure, To increase flexibility/ROM, To improve self management and To improve ability to perform tasks related to life management Cryotherapy (ice pack, ice massage): Yes Thermo therapy (hot pack): Yes Ultrasound (thermal/non thermal): Yes For the Purpose of:: To decrease pain, To decrease swelling/inflammation and To improve nutrient delivery to tissue Text: Thank you for the opportunity to evaluate your patient. For Medicare and Medicare HMO plans, please review the plan of care and approve it. It will need to be FAXED BACK to us at [phone] for Medicare purposes. For Medicare only, by signing this I certify the plan of care. Please let me know if there are questions or concerns regarding this plan of care. Physician Signature: Date:
--- NOTE | 2025-09-02 12:48 | HP.PTDCSUM_ITS ---
Discharge Summary D/C summary: It has been my pleasure to treat TREY CALVERT referred by Dr. Ramez Aranda MD, with the diagnosis of L SHLD PAIN for a total of 10 visit(s). Discharge Date: 09/02/25 Please see the following information for a summary of their discharge status. Subjective Subjective: PATIENT REPORTS THE THERAPY HAS REALLY HELPED HER SHOULDER. SHE REPORTS IT STILL HURTS BUT IT FEELS A LOT BETTER THAN IT DID. SHE STATES SHE WANTS TO STOP THERAPY AND CONTINUE WITH THE EX'S ON HER OWN AT HOME NOW. SHE REPORTS HER STRENGTH IS BETTER - SHE STATES SHE CAN PUT THE DISHES UP IN THE CUPBOARD NOW AND SHE COULDN'T DO THAT BEFORE. SHE REPORTS HER NECK IS FEELING A LOT BETTER. Pain L shoulder: Pain Intensity (Out of 10): 0 Overall Improvement % Improvement: 45 Objective Objective/Function: PATIENT WAS SEEN TODAY FOR RE-ASSESSMENT OF PROGRESS TOWARD THE SET PT GOALS AND THE NEED FOR FURTHER PHYSICAL THERAPY VS READINESS FOR DISCHARGE. THIS PATIENT IS MAKING SLOW PROGRESS WITH PT, HAS A HOME EX PROGRAM AND WOULD LIKE TO BE DISCHARGED. SHE CONTINUES TO HAVE SIGNIFICANT L UE TENDERNESS AND FUNCTIONAL LIMITATION. SHE HAS BEEN VERY PLEASANT AND COOPERATIVE TO WORK WITH. UPON EXAM TODAY: ROM deficit: PATIENT IS NOW ABLE TO ACTIVELY ELEVATE HER L ARM TO 115 DEG. PASSIVE L SHLD ELEVATION TO 124 DEG. THERE IS STILL SNAPPING IN THE UE. Motor deficit: R SHLD GROSSLY 3+ TO 4-/5, ELBOW 4-/5, R SHLD FLEX FIELD ASSESSOR STRENGTH 35 LBS. L SHLD GROSSLY 3-/5, ELBOW 3+/5, FIELD ASSESSOR STRENGTH 27 LBS Cervical Mvmt Loss: Flex: NIL Pro: NIL Ext: MOD Ret: LOREE RSB: MOD TO LOREE LSB: LOREE - INCREASES NECK INTO L UT - NW R Rot: MOD L Rot: MOD Palpation: TENDERNESS WITH LIGHT PALPATION OF L PROXIMAL HUMERUS, SHLD JT, AND L UPPER TRAP. Goals Goal 1:: DECREASE C/O NECK AND L UE SX'S BY AT LEAST 50% TO EASE ADL'S. Goal Progress: Progressing Goal 2:: INCREASE NECK AND L UE FUNCTIONAL ROM TO EASE ADL'S. Goal Progress: Progressing Goal 3:: IMPROVE L UE FUNCTIONAL STRENGTH TO EASE ADL'S. Goal Progress: Progressing Goal 4:: INDEP HEP Goal Progress: Goal Met Plan Plan: D/C TO HEP AT PATIENTS REQUEST. PHYSICIAN FOLLOW UP RECOMMENDED AND PATIENT AGREEABLE. D/C Information d/c sentence: If there are questions or concerns regarding this patient's physical therapy, please feel free to call me at [phone]. Thank you for the referral of this patient. Sincerely, Kenyetta Govea, PT, Cert MDT Balance/Gait/Functional tests Balance/Special Test Scores Quick DASH Score: 34.0900 Improvement % Improvement: 45
== END 2025-09-02 19:00 | disposition home or self-care (01) ==
LOC: PT 12:00
PROVIDERS: PCP Family Medicine; Referring Provider Anesthesiology Pain Medicine; Visit Provider Anesthesiology Pain Medicine
DX: M25.512 Pain in left shoulder (principal)
CPT/HCPCS: 97035; 97110; 97162; 97530

== ENCOUNTER → 2025-09-11 | Outpatient (CLI) | payer MEDICARE, SELFPAY | END | disposition home or self-care (01) | PROVIDERS: PCP Family Medicine; Referring Provider Physician Assistant Surgical; Visit Provider Physician Assistant Surgical | DX: R41.82 Altered mental status, unspecified (principal) | CPT/HCPCS: 87077; 87086; 87088; 87186 ==

== ENCOUNTER → 2025-09-18 | Outpatient (CLI) | payer MEDICARE, SELFPAY ==
[2025-09-18 13:04] LABS: Hematocrit 38.3 % (37-47); Hemoglobin 12.4 g/dL (12.0-15.0); Mean Corp Hgb Conc 32.4 g/dL (32-36); Mean Corpuscular Volume 93.4 fL (81-99); Mean Platelet Vol. 11.1 fl (6.2-12.0); Platelet Count 178 K/mm3 (150-450); RBC Distribution Width CV 13.3 % (11.6-14.6); RBC Distribution Width SD 45.7 fl (35.1-43.9); Red Blood Count 4.10 M/mm3 (4.2-5.4); White Blood Count 7.5 K/mm3 (4.4-11.0)
[2025-09-18 15:22] LABS: AST(SGOT) 39 U/L (<=31); Alanine Aminotransfer ALT/SGPT 19 U/L (<=34); Albumin, Serum 4.1 g/dL (3.4-4.8); Alkaline Phosphatase 90 U/L (35-104); Anion Gap 13 (5-15); BUN 42 mg/dL (4-19); BUN/Creat Ratio 21.5 RATIO (10-20); Calcium,Total 10.0 mg/dL (7.6-11.0); Carbon Dioxide 25.1 mmol/L (21.0-32.0); Chloride 104 mmol/L (98-108); Globulin 2.9 g/dL (2.2-4.2); Glucose 75 mg/dL (70-99); Potassium 4.0 mmol/L (3.3-5.1)
[2025-09-19 16:09] LABS: Folate, Hemolysate Test > 620.0 ng/mL (Not Estab.); Folate, RBC (Hct) Test 38.2 % (34.0-46.6)
== END | disposition home or self-care (01) ==
LOC: MTLAB 10:56
PROVIDERS: PCP Family Medicine; Referring Provider Psychiatry & Neurology Neurology; Visit Provider Psychiatry & Neurology Neurology
DX: R41.82 Altered mental status, unspecified (principal); F03.90 Unspecified dementia, unspecified severity, without behavioral disturbance, psychotic disturbance, mood disturbance, and anxiety
CPT/HCPCS: 36415; 80053; 82747; 85014; 85027

== ENCOUNTER → 2025-09-22 | Outpatient (CLI) | payer MEDICARE, SELFPAY | END | disposition home or self-care (01) | LOC: LAB 09:35 | PROVIDERS: PCP Family Medicine; Referring Provider Urology; Visit Provider Urology | DX: N30.01 Acute cystitis with hematuria (principal) | CPT/HCPCS: 87077; 87086; 87088 ==

== ENCOUNTER → 2025-10-03 | Outpatient (CLI) | payer MEDICARE, SELFPAY ==
--- NOTE | 2025-10-03 10:11 | MRI_ITS ---
PROCEDURE: BRAIN W/WO CONTRAST 10/03/2025 REASON FOR EXAM: DEMENTIA; HALLUCINATIONS TECHNIQUE: Procedure Code: [id number] Modality: MR Procedure: BRAIN W/WO CONTRAST Multiplanar and multisequence images were obtained. CONTRAST: Clariscan VOLUME: 11 mL COMPARISON: None. FINDINGS: Brain: Foci of hyperintense signal on T2 and FLAIR which are nonspecific but most likely due to chronic small vessel ischemia. Parenchymal volume loss consistent with brain atrophy. No restricted diffusion. No hemorrhage. No masses or midline shift. No abnormal enhancement. The orbits are unremarkable. The midline structures and craniocervical junctions are within normal limits. No ventriculomegaly. Diffusion: No restricted diffusion. Ventricles: Unremarkable. Major Intracranial Vessels: Patent. Sinuses: Clear. Mastoids: Clear. MRI/Brain W/WO Contrast IMPRESSION: No acute brain abnormalities. No abnormal enhancement or mass lesions. White matter changes which are most likely due to chronic small-vessel ischemia . Reading Location: [id number]
== END | disposition home or self-care (01) ==
LOC: MRI 10:00
PROVIDERS: PCP Family Medicine; Referring Provider Psychiatry & Neurology Neurology; Visit Provider Psychiatry & Neurology Neurology
DX: R44.3 Hallucinations, unspecified (principal); F03.90 Unspecified dementia, unspecified severity, without behavioral disturbance, psychotic disturbance, mood disturbance, and anxiety
CPT/HCPCS: 70553; A9575

== ENCOUNTER → 2025-10-13 | Outpatient (CLI) | payer MEDICARE, SELFPAY ==
--- NOTE | 2025-10-13 08:06 | CDU_ITS ---
Reason For Study Reason For Study: Bruit, Lt Endart Rt. Velocities/BP Lt. Velocities/BP Prox CCA 81/7 cm/sec. Prox CCA 59/8 cm/sec. Mid CCA 69/8 cm/sec. Mid CCA 53/12 cm/sec. Dist CCA 66/7 cm/sec. Dist CCA 378/29 cm/sec. Prox ICA 138/18 cm/sec. Prox ICA 298/20 cm/sec. Mid ICA 95/14 cm/sec. Mid ICA 115/7 cm/sec. Dist ICA 115/20 cm/sec. Dist ICA 54/10 cm/sec. Rt. ICA/CCA = 2.0. Lt. ICA/CCA = 5.6. Prox ECA 94/1 cm/sec. Prox ECA 108/7 cm/sec. Rt. Vert. 55/11 cm/sec. Lt. Vert. 63/10 cm/sec. Right Extracranial There is heterogeneous, irregular atherosclerotic plaque noted in the right common carotid artery. There is heterogeneous, irregular atherosclerotic plaque noted in the right internal carotid artery. There is heterogeneous, irregular atherosclerotic plaque noted in the right external carotid artery. Antegrade flow is noted in the right vertebral artery. Left Extracranial There is heterogeneous, irregular atherosclerotic plaque noted in the left common carotid artery. There is heterogeneous, irregular atherosclerotic plaque noted in the left internal carotid artery. There is heterogeneous, irregular atherosclerotic plaque noted in the left external carotid artery. Antegrade flow is noted in the left vertebral artery. Procedure Carotid Duplex 55943. This is a Carotid Duplex examination using B-mode, color flow and specral Doppler. The study was technically difficult. Prelim given to Malini LYN. Exam performed in department. VL/Carotid Duplex Ultrasound Interpretation Summary Moderate (50-69%) stenosis right extracranial internal carotid. Severe (>70%) s tenosis left extracranial internal carotid. Flow within the vertebral arteries is antegrade bilaterally. Ordering Physician: Miguel Finnegan Referring Physician: Marcelo Borges Performed By: Erica Joyner RDCS, RVT
== END | disposition home or self-care (01) ==
LOC: CVS 08:05
PROVIDERS: PCP Family Medicine; Referring Provider Psychiatry & Neurology Neurology; Visit Provider Psychiatry & Neurology Neurology
DX: R09.89 Other specified symptoms and signs involving the circulatory and respiratory systems (principal)
CPT/HCPCS: 93880

== ENCOUNTER 2025-10-14 10:45 | Inpatient (IN) | payer MEDICARE, SELFPAY ==
[2025-10-14] VITALS (11 sets, daily range): BP systolic 127–170; BP diastolic 43–74; PULSE 75–90; RESP 14–21; TEMP 35.5–36.8; O2SAT 96–100; BMI 26.2; BMI 28.3
--- NOTE | 2025-10-14 10:54 | CT_ITS ---
PROCEDURE: STROKE CTA HEAD AND NECK W/CON 10/14/2025 REASON FOR EXAM: NEURO DEFICIT, ACUTE, STROKE SUSPECTED TECHNIQUE: Procedure Code: [id number].ST.HN Modality: CT Procedure: STROKE CTA HEAD AND NECK W/CON Multidetector CT angiography of the head and neck with intravenous contrast was performed with multiplaner and maximum intensity projection (MIP) reconstructions. CONTRAST: Isovue 370 VOLUME: 100 mL One or more dose reduction techniques were used (e.g., Automated exposure control, adjustment of the mA and/or kV according to patient size, use of iterative reconstruction technique). RADIATION DOSE SUMMARY: DLP: 614.60 mGycm COMPARISON: None available. FINDINGS: CTA NECK: There is atheromatous plaque along the aortic arch. The origins of the vessels arising from the aortic arch are patent without high-grade stenosis. Right carotid artery: The right common carotid artery is patent without high- grade stenosis. Atherosclerotic calcification of the origin of the right cervical internal carotid artery contributes to approximately 40-50% focal stenosis. The right cervical internal carotid artery is otherwise patent. Left carotid artery: Atherosclerotic calcification at the distal left common carotid artery contributes to [id number] stenosis. Atherosclerotic plaque at the origin of the left cervical internal carotid artery contributes to approximately 40% focal stenosis. The left cervical internal carotid artery is otherwise patent. Cervical vertebral arteries: The cervical vertebral arteries are patent without high-grade stenosis. Scattered atherosclerotic calcification along the cervical and intradural vertebral arteries. Assessment for carotid stenosis is performed utilizing NASCET criteria. NASCET carotid stenosis criteria: 0% - none, 1-49% - mild, 50-69% - moderate, 70-89% - severe, 90-99% - critical. % ICA stenosis = (normal distal cervical ICA diameter - narrowest cervical ICA diameter / normal distal cervical ICA diameter) x 100. CTA Head: Atherosclerotic calcification of the cavernous carotid arteries with mild luminal narrowing. The petrous, cavernous, and intracranial internal carotid arteries are otherwise patent without high-grade stenosis. The proximal anterior cerebral arteries are patent without high-grade stenosis. The proximal middle cerebral arteries are patent without high-grade stenosis. The intradural vertebral arteries are patent without high-grade stenosis. The basilar artery is patent without high-grade stenosis. The proximal posterior cerebral arteries are patent without high-grade stenosis. No dominant intracranial aneurysm or high flow arteriovenous malformation is identified. Ancillary findings: Cervical spondylosis. CT/STROKE CTA Head AND Neck W/Con IMPRESSION: 1. No large vessel occlusion. 2. Moderate focal stenosis at the origin of the right internal carotid artery s econdary to atherosclerotic plaque. 3. Mild focal stenosis of the origin of the left internal carotid artery second jourdan to atherosclerotic plaque. Reading Location: [id number]
--- NOTE | 2025-10-14 10:54 | CT_ITS ---
PROCEDURE: STROKE BRAIN/HEAD WITHOUT CONT 10/14/2025 REASON FOR EXAM: NEURO DEFICIT, ACUTE, STROKE SUSPECTED TECHNIQUE: Procedure Code: CTBR.ST Modality: CT Procedure: STROKE BRAIN/HEAD WITHOUT CONT Coronal and Sagittal reconstruction series were provided. One or more dose reduction techniques were used (e.g., Automated exposure control, adjustment of the mA and/or kV according to patient size, use of iterative reconstruction technique. RADIATION DOSE SUMMARY: CTDlvol: 44.99 mGy DLP: 779.24 mGycm COMPARISON: None. FINDINGS: Brain: No acute territorial infarction. No acute intracranial hemorrhage. No mass-effect or midline shift. Diffuse white matter hypodensities which are nonspecific but likely due to chronic small-vessel ischemia. Parenchymal volume loss consistent with brain atrophy. No ventriculomegaly. The orbits are unremarkable. The craniocervical junction is unremarkable. CSF Spaces: Normal Sinuses/Mastoids: Clear. Bones: No acute bony abnormalities CT/STROKE Brain/Head without Cont IMPRESSION: Stroke Alert: No acute intracranial abnormalities. The critical findings in the findings and impression above were relayed directl y by me by telephone to Anam Ansari on 10/14/2025 at 11:06 am with readback verification. Reading Location: [id number]
--- NOTE | 2025-10-14 10:54 | EKG12_ITS ---
Test Reason : NEURO Blood Pressure : */* mmHG Vent. Rate : 89 BPM Atrial Rate : 89 BPM P-R Int : 172 ms QRS Dur : 90 ms QT Int : 398 ms P-R-T Axes : 70 69 65 degrees QTcB Int : 484 ms Normal sinus rhythm Normal ECG Confirmed by Cheikh Haley ([id number]), content editor TOYIN CALI ([id number]) on 10/15/2025 8:44:51 AM Referred By: Confirmed By: Cheikh Haley
--- NOTE | 2025-10-14 10:55 | ED.VIS.STROK ---
HPI History of Present Illness Chief Complaint: Stroke Alert Informant: patient and spouse/S.O. Onset/Context/Timing Onset: Today Context: - (Awoke with symptoms.) Timing: Continuous Quality and Location: Positive for Slurred Speech Current Severity: Mild Maximum Severity: Moderate Associated Symptoms Associated Symptoms: Negative for Headache, Nausea, Vomiting or Chest Pain Narrative Narrative: 80-year-old female history of dementia. No prior stroke. Prior aortic vascular surgery. Fell last night around 8 PM went to bed last at around 9 PM and was doing fine. said around 9 AM this morning he had trouble waking her up and then when he did he noticed she had slurred speech and she fell also today. Fell forward last night and fell backwards today. She is on no blood thinners. Other than slurred speech she did notice any significant difference. They deny any recent illness. He denies any dysuria. He denies any fever or headache. Prior similar symptoms: No Recent Illness/Hospitalization: Yes [facility] Medical History Hypertension Anxiety Low iron Bladder disease Loss of consciousness History of ulceration Gastroparesis Depression History of edema Wears hearing aid Post-menopausal DVT (deep venous thrombosis) Restless legs Back pain Injury of head and neck Former smoker Shortness of breath on exertion History of pain when walking History of stress test Hypertension Transaminitis Acute on chronic respiratory failure with hypoxemia Acute respiratory failure GERD (gastroesophageal reflux disease) Former smoker High cholesterol Arthritis Osteoarthritis Home Medications ?Medication ?Instructions ?Recorded ?Last Taken ?Type rosuvastatin 40 mg tablet 40 mg PO QHS CHOLESTEROL 06/30/21 08/27/24 History potassium chloride 20 mEq 40 meq (2 x 20 mEq) PO DAILY 07/01/21 08/27/24 Rx tablet,extended release(part/cryst) potassium #0 tabs menthol 4 % topical gel (Biofreeze 1 applic topical DAILY PRN PAIN 07/21/21 Unknown History (menthol)) pramipexole 1 mg tablet 0.5 mg PO BID RLS 06/04/24 06/13/25 History pantoprazole 40 mg tablet,delayed 40 mg PO BID #120 tabs 12/06/24 Unknown Rx release cholecalciferol (vitamin D3) 25 25 mcg PO DAILY vitamin 03/18/25 Unknown History mcg (1,000 unit) capsule (Vitamin D3) vitamin B complex 1 cap PO DAILY vitamin 03/18/25 Unknown History aspirin 81 mg tablet 81 mg PO BID heart health 04/14/25 08/29/25 History sucralfate 1 gram tablet 1 g PO BID stomach #180 tabs 05/19/25 Unknown Rx duloxetine 60 mg capsule,delayed 60 mg PO QHS mental health #90 caps 08/19/25 Unknown Rx release leucovorin 4 mg-pyridoxal 1 tab-cap PO QDAY #90 tabs 08/19/25 Unknown Rx phosphate 50 mg-mecobalamin 2 mg tablet (Folinic-Plus) amlodipine 5 mg tablet 5 mg PO DAILY 30 days #30 tabs 08/30/25 Unknown Rx chlorthalidone 50 mg tablet 25 mg (1/2 x 50 mg) PO QDAY 30 08/30/25 Unknown Rx days #15 tabs losartan 50 mg tablet 50 mg PO DAILY 30 days #30 tabs 08/30/25 Unknown Rx sulfamethoxazole 800 1 tab PO BID #10 tabs 09/15/25 Unknown Rx mg-trimethoprim 160 mg tablet quetiapine 50 mg tablet 50 mg PO BID #60 tabs 09/29/25 Unknown Rx alprazolam 0.5 mg tablet 0.5 mg PO BID PRN restlessness #60 10/10/25 Unknown Rx tabs Allergy/AdvReac Type Severity Reaction Status Date / Time meperidine HCl (From Demerol) Allergy Severe Swelling Verified 10/14/25 11:03 poison adelaide extract (Poison Allergy Rash Verified 10/14/25 11:03 Adelaide Extract) atorvastatin calcium (From AdvReac Upset Verified 10/14/25 11:03 Lipitor) Stomach cefaclor (From Ceclor) AdvReac PALPITATIONS, Verified 10/14/25 11:03 CHEST PRESSURE, SHORT OF BREATH doxycycline AdvReac Upset Verified 10/14/25 11:03 Stomach hydrocodone AdvReac Upset Verified 10/14/25 11:03 Stomach Family History Mother Arthritis CVA (cerebral vascular accident) Father Myocardial infarction Heart disease Hypertension High cholesterol Surgical History History of lumbar fusion Hx of total hip arthroplasty History of esophagogastroduodenoscopy (EGD) History of appendectomy History of tonsillectomy Hx of colonoscopy Hx of bilateral breast reduction surgery Hx of surgical procedure History of hip replacement History of toe surgery History of renal stent History of cataract surgery History of knee replacement History of extraction of renal calculus History of carotid endarterectomy History of phfzf-cnxag-bfiadoq bypass Social History Smoking Status: Former smoker Tobacco: How many years used: 40 Electronic Cigarette Use: not used how long ago did patient quit smokin years ago second hand exposure: No alcohol intake: current alcohol intake frequency: holidays/special occasions only substance use type: does not use alan/evangelical: None seatbelt use: sometimes ROS ROS ED ROS Narrative Denies recent illness. Constitutional Constitutional ED: Denies chills or fever(s) Eyes Eyes: Denies blurry vision ENT ENT ED: Denies ear pain Cardiovascular Cardiovascular: Denies chest pain Respiratory/Chest Respiratory/Chest: Denies cough or dyspnea Gastrointestinal Gastrointestinal: Denies abdominal pain Genitourinary Genitourinary ED: Denies dysuria Musculoskeletal Musculoskeletal: Denies arthralgias Integumentary Denies abscess Neurologic Neurologic: Denies headache(s) Psychiatric Psychiatric: Denies anxiety or depression Endocrine Endocrinology: Denies polydipsia Hematologic/Lymphatic Hematologic/Lymphatic: Denies easy bleeding, easy bruising or lymphadenopathy Allergic/Immunologic Allergic/Immunologic ED: Denies mouth swelling or urticaria EXAM Physical Exam Narrative Exam Narrative: Well-appearing 80-year-old female sitting upright in wheelchair in triage room 1. Vital signs are stable afebrile she does not look septic or toxic. Her pulse ox percent on room air. She is accompanied by her . H EENT exam pupils round react light. Moist mucous membranes. No facial droop. No signs of trauma. No bruising or tenderness. No hematoma or lacerations. Scalp nontender. C-spine and neck nontender. Back nontender. Lungs clear to auscultation bilaterally. Heart regular rhythm no murmur. Abdomen soft nontender. No peritoneal signs. Moving all 4 extremities. 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 Dorsi plantarflexion intact. Neurologically she is awake alert. Answering questions and following commands. She knows where she was at. She knows the month of the year. She knew the president denied states. She has no facial droop. Currently her speech is normal. She speaking in sentences. Is not slurred. There is no drift either upper or lower extremities. Her current NIH score is 0. Const Vital Signs: 10/14/25 10:45 10/14/25 10:48 10/14/25 11:25 Temperature 98 F Temperature Source Temporal Pulse Rate 75 90 Respiratory Rate 14 18 Blood Pressure 143/64 H 146/72 H Blood Pressure Mean 90 96 Pulse Ox 100 99 Oxygen Delivery Method Room Air 10/14/25 11:45 10/14/25 12:00 Temperature Temperature Source Pulse Rate 88 80 Respiratory Rate 21 H 16 Blood Pressure 170/74 H 166/70 H Blood Pressure Mean 106 102 Pulse Ox 99 99 Oxygen Delivery Method Room Air MDM MDM MDM Narrative Medical decision making narrative: 80-year-old female with dementia lives at home with her and fell last night and again today. Today her said she had slurred speech but is much better now. She has no focal motor deficits and has normal speech now. Her NIH is 0. She has been made a stroke team. Currently she is not a TNK candidate. She is not on any blood thinners. Repeat exam no significant change around 12:27 PM. I did speak to the stroke neurologist he does not standing specifically acute on the CT brain or CTA head and neck. Radiologist read the CT of the brain as no acute process and CTA head and neck with right and left carotid stenosis of around 40 to 50%. No bleed. No mass. This is most likely secondary to her UTI may or may not be secondary dementia or using Xanax. She be started on Rocephin and admitted to the hospitalist. History & Record Review Discussion w/independent historian: Patient and Family Additional record(s) reviewed:: Prior inpatient record, Prior outpatient record, Prior ED visit and Prior labs Lab Data Attestation: I reviewed the patient's lab results. Lab results narrative: CBC shows a white count of 7. H&H 10.9 and 33 consistent with baseline anemia. Platelets 137. PT/INR of 13 and 1. PTT 28. Electrolytes show a gap of 9. BUN and creatinine of 43 and 1.63. Glucose 97. Initial troponin 37. Urinalysis shows no nitrates. 5900 white cells and 2+ bacteria consistent with a UTI. A culture be sent. She be started on Rocephin. Labs: Laboratory Results - last 24 hr 10/14/25 10/14/25 10/14/25 10:48 11:30 11:51 WBC 7.4 RBC 3.56 L Hgb 10.9 L Hct 33.2 L MCV 93.3 MCH 30.6 MCHC 32.8 RDW Std Deviation 45.6 H RDW Coeff of [place] 13.2 Plt Count 137 L MPV 9.1 Immature Gran % (Auto) 0.300 Neut % (Auto) 68.3 Lymph % (Auto) 20.5 [place] % (Auto) 8.3 Eos % (Auto) 2.3 Baso % (Auto) 0.3 Absolute Neuts (auto) 5.0 Absolute Lymphs (auto) 1.51 Nucleated RBC % 0 PT 13.7 INR 1.0 APTT 28.2 Sodium 137 Potassium 3.9 Chloride 101 Carbon Dioxide 25.9 Anion Gap 9 BUN 43 H Creatinine 1.63 H Estim Creat Clear Calc 22.45 L Est GFR (MDRD) Non-Af 32 L BUN/Creatinine Ratio 26.1 H Glucose 97 Calcium 9.3 Troponin T High Sens 37 H Urine Color Yellow Urine Clarity Cloudy Urine pH 6.5 Ur Specific [place] 1.010 Urine Protein 100 H Urine Glucose (UA) Normal Urine Ketones Negative Urine Occult Blood 50 H Urine Nitrite Negative Urine Bilirubin Negative Urine Urobilinogen Normal Ur Leukocyte Esterase 500 H Urine RBC 0-5 SEEN Urine WBC 50-100 SEEN Ur Squamous Epith Cells 0 SEEN Urine Bacteria 2+ Urine Mucus 0 SEEN POC Glucose 72 L Radiography Diagnostic Testing: Clinical Impression(s) from Imaging Studies Brain CT 10/14/25 10:54 IMPRESSION: Stroke Alert: No acute intracranial abnormalities. The critical findings in the findings and impression above were relayed directly by me by telephone to Anam Ansari on 10/14/2025 at 11:06 am with readback verification. Reading Location: [facility] Head/Neck CTA 10/14/25 10:54 IMPRESSION: 1. No large vessel occlusion. 2. Moderate focal stenosis at the origin of the right internal carotid artery secondary to atherosclerotic plaque. 3. Mild focal stenosis of the origin of the left internal carotid artery secondary to atherosclerotic plaque. Reading Location: [facility] Rhythm Strip Rhythm Strip: Sinus Rhythm Rate: 89 Ectopy: None EKG Initial EKG: Attestation: I personally reviewed and interpreted this EKG as follows: Interpretation: No Acute Injury Pattern Comments: Normal sinus rhythm rate 89 no acute signs of SD nor ischemia nor dysrhythmia. Discharge Plan Dx/Rx/DC Orders Clinical Impression: Falls, Acute alteration in mental status, UTI (urinary tract infection) Disposition Disposition: Acute Care Hospital [facility] NIHSS NIHSS 1a. Level of Consciousness: 0 - Alert; keenly responsive 1b. LOC Questions: 0 - Answers BOTH questions correctly 1c. LOC Commands: 0 - Performs BOTH tasks correctly 2. Best Gaze: 1 - Partial gaze palsy; 3. Visual: 0 - No visual loss 4. Facial Palsy: 0 - Normal symmetrical movements 5a. Left Arm: 0 - No drift; arm holds 90 (or 45) degrees for full 10 seconds 5b. Right Arm: 0 - No drift; arm holds 90 (or 45) degrees for full 10 seconds 6a. Left Le - No drift; leg holds 30-degree position for full 5 seconds 6b. Right Le - No drift; leg holds 30-degree position for full 5 seconds 7. Limb Ataxia: 0 - Absent 8. Sensory: 0 - Normal; no sensory loss 9. Best Language: 0 - No aphasia; normal 10. Dysarthria: 0 - Normal 11. Extinction and Inattention: 0 - No abnormality Total: 1 Stroke Questions Stroke Team Activated: Yes Reviewed Inclusion/Exclusion criteria: Yes IV Thrombolytic Administered: No No contraindications from thrombolytic administration: No
--- NOTE | 2025-10-14 11:29 | ED.RN ---
verbal order from dr. kidd to cancel nih's but keep stroker alert. pt has had 3 consecutive 0 nih
[2025-10-14 11:38] LABS: Hematocrit 33.2 % (37-47); Hemoglobin 10.9 g/dL (12.0-15.0); Immature Granulocytes Count 0.020 X10^3/uL (0.0-0.0); Mean Corp Hgb Conc 32.8 g/dL (32-36); Mean Corpuscular Volume 93.3 fL (81-99); Mean Platelet Vol. 9.1 fl (6.2-12.0); NRBC Flagged by Analyzer 0 % (0-5); Platelet Count 137 K/mm3 (150-450); RBC Distribution Width CV 13.2 % (11.6-14.6); RBC Distribution Width SD 45.6 fl (35.1-43.9); Red Blood Count 3.56 M/mm3 (4.2-5.4); White Blood Count 7.4 K/mm3 (4.4-11.0)
[2025-10-14 11:47] LABS: Prothrombin Time (Protime)PT. 13.7 SECONDS (11.7-14.9)
[2025-10-14 11:48] LABS: Partial Thromboplast Time 28.2 Seconds (24.1-36.2)
[2025-10-14 11:57] LABS: Mucous, Urine 0 SEEN /hpf (<or=2+); Squamous Epithelial Cells - UA 0 SEEN /hpf (5-10)
[2025-10-14] MEDS: 0.9 % NaCl (Sterile) Posiflush 10 mL IV (12:00)
[2025-10-14 12:11] LABS: Anion Gap 9 (5-15); BUN 43 mg/dL (4-19); BUN/Creat Ratio 26.1 RATIO (10-20); Calcium,Total 9.3 mg/dL (7.6-11.0); Carbon Dioxide 25.9 mmol/L (21.0-32.0); Chloride 101 mmol/L (98-108); Estimated Creatinine Clearance 22.45 ml/min (50-250); Glucose 97 mg/dL (70-99); Potassium 3.9 mmol/L (3.3-5.1); Troponin T High Sensitivity 37 ng/L (<=14)
[2025-10-14 12:12] LABS: Color, Urine Yellow (Yellow); Glucose, Dipstick Normal (Normal); Ketone-Dipstick Negative (Negative); Leukocyte Esterase-Dipstick 500 /ul (Negative); Nitrite-Dipstick Negative (Negative); Occult Blood-Urine 50 /ul (Negative); Protein-Dipstick 100 mg/dl (Negative); Specific Gravity, Urine 1.010 (1.002-1.030); Urine Bilirubin Dipstick Negative (Negative)
[2025-10-14 12:19] LABS: Red Blood Cells-Urine 0-5 SEEN /hpf (0-5)
--- NOTE | 2025-10-14 12:39 | CM.ED ---
Social work Reason for referral: stroke alert SW responded to stroke alert called in triage. SW provided support to patient's , Burton, and patient's daughter, Gabbi. SW empathically and actively listened to patient's family and SW helped educate on the stroke alert process. Patient's family denied further needs at this time. Divya Lucas, POT ROOM TAPPER, OFFICE EQUIPMENT TECHNICIAN
--- NOTE | 2025-10-14 12:39 | PCM.HP.STD ---
HPI - General General Date of Admission: 10/14/25 Date of Service: 10/14/25 Chief Complaint: Slurred speech and multiple falls HPI Narrative TREY CALVERT, is a 80 F with past medical history is again for essential hypertension, dyslipidemia, recent diagnosis of dementia who was brought to the emergency department by the family on account of slurred speech. Patient's symptoms apparently started a day prior to her being admitted. Per patient who provided much of the history patient had fallen a couple of times the day prior. She went to bed without any event. Patient did wake her up and found patient to have slurred speech. She later experienced 2 falls. This necessitated patient taking patient to PCPs office where a suspicion of CVA was entertained. Patient was reported to have fallen asleep twice was at the PCPs office. Patient subsequently sent to the ED. Initial imaging studies came back unremarkable. Patient was however found to have abnormal urinalysis consistent with UTI. Admitted to monitored bed for further management [facility] Medical History Hypertension Anxiety Low iron Bladder disease Loss of consciousness History of ulceration Gastroparesis Depression History of edema Wears hearing aid Post-menopausal DVT (deep venous thrombosis) Restless legs Back pain Injury of head and neck Former smoker Shortness of breath on exertion History of pain when walking History of stress test Hypertension Transaminitis Acute on chronic respiratory failure with hypoxemia Acute respiratory failure GERD (gastroesophageal reflux disease) Former smoker High cholesterol Arthritis Osteoarthritis Home Medications ?Medication ?Instructions ?Recorded ?Last Taken ?Type rosuvastatin 40 mg tablet 40 mg PO QHS CHOLESTEROL 06/30/21 08/27/24 History menthol 4 % topical gel (Biofreeze 1 applic topical DAILY PRN PAIN 07/21/21 Unknown History (menthol)) pramipexole 1 mg tablet 0.5 mg PO BID RLS 06/04/24 06/13/25 History cholecalciferol (vitamin D3) 25 25 mcg PO DAILY vitamin 03/18/25 Unknown History mcg (1,000 unit) capsule (Vitamin D3) vitamin B complex 1 cap PO DAILY vitamin 03/18/25 Unknown History aspirin 81 mg tablet 81 mg PO BID heart health 04/14/25 08/29/25 History sucralfate 1 gram tablet 1 g PO BID stomach #180 tabs 05/19/25 Unknown Rx duloxetine 60 mg capsule,delayed 60 mg PO QHS mental health #90 caps 08/19/25 Unknown Rx release leucovorin 4 mg-pyridoxal 1 tab-cap PO QDAY #90 tabs 08/19/25 Unknown Rx phosphate 50 mg-mecobalamin 2 mg tablet (Folinic-Plus) amlodipine 5 mg tablet 5 mg PO DAILY 30 days #30 tabs 08/30/25 Unknown Rx chlorthalidone 50 mg tablet 25 mg (1/2 x 50 mg) PO QDAY 30 08/30/25 Unknown Rx days #15 tabs losartan 50 mg tablet 50 mg PO DAILY 30 days #30 tabs 08/30/25 Unknown Rx quetiapine 50 mg tablet 50 mg PO BID #60 tabs 09/29/25 Unknown Rx alprazolam 0.5 mg tablet 0.5 mg PO BID PRN restlessness #60 10/10/25 Unknown Rx tabs Allergy/AdvReac Type Severity Reaction Status Date / Time meperidine HCl (From Demerol) Allergy Severe Swelling Verified 10/14/25 11:03 poison adelaide extract (Poison Allergy Rash Verified 10/14/25 11:03 Adelaide Extract) atorvastatin calcium (From AdvReac Upset Verified 10/14/25 11:03 Lipitor) Stomach cefaclor (From Ceclor) AdvReac PALPITATIONS, Verified 10/14/25 11:03 CHEST PRESSURE, SHORT OF BREATH doxycycline AdvReac Upset Verified 10/14/25 11:03 Stomach hydrocodone AdvReac Upset Verified 10/14/25 11:03 Stomach Family History Mother Arthritis CVA (cerebral vascular accident) Father Myocardial infarction Heart disease Hypertension High cholesterol Surgical History History of lumbar fusion Hx of total hip arthroplasty History of esophagogastroduodenoscopy (EGD) History of appendectomy History of tonsillectomy Hx of colonoscopy Hx of bilateral breast reduction surgery Hx of surgical procedure History of hip replacement History of toe surgery History of renal stent History of cataract surgery History of knee replacement History of extraction of renal calculus History of carotid endarterectomy History of ltzsr-fhpoj-bodwahs bypass Social History Smoking Status: Former smoker Tobacco: How many years used: 40 Electronic Cigarette Use: not used how long ago did patient quit smokin years ago second hand exposure: No alcohol intake: current alcohol intake frequency: holidays/special occasions only substance use type: does not use alan/adventist: None seatbelt use: sometimes ROS ROS Narrative Unable to assess since patient has been falling in and out of sleep Vital Signs Vital Signs Vital Signs: 10/14/25 10:45 10/14/25 10:48 10/14/25 11:25 Temperature 98 F Temperature Source Temporal Pulse Rate 75 90 Respiratory Rate 14 18 Blood Pressure 143/64 H 146/72 H Blood Pressure Mean 90 96 Pulse Ox 100 99 Oxygen Delivery Method Room Air 10/14/25 11:45 10/14/25 12:00 Temperature Temperature Source Pulse Rate 88 80 Respiratory Rate 21 H 16 Blood Pressure 170/74 H 166/70 H Blood Pressure Mean 106 102 Pulse Ox 99 99 Oxygen Delivery Method Room Air Weight Weight: 60.9 kg Body Mass Index (BMI) 26.2 Physical Exam Narrative GENERAL: Patient in no apparent distress HEENT: Atraumatic; normocephalic EYES; Anicteric, Normal Conjunctiva NECK; supple, normal thyroid, RESPIRATORY: Diminished to auscultation CARDIOVASCULAR: Regular S1 S2, GI: soft, normoactive bowel sounds, : No Renal angle tenderness; EXTREMITIES: No edema, no clubbing, MUSCULOSKELETAL: no muscle wasting NEURO: no lateralizing signs. SKIN: No Rash PSYCH; sleepy but arousable Results Lab / Micro Data 10/14/25 11:30 10/14/25 11:30 Labs: Laboratory Results - last 24 hr 10/14/25 10:48: POC Glucose 72 L 10/14/25 11:30: WBC 7.4, RBC 3.56 L, Hgb 10.9 L, Hct 33.2 L, MCV 93.3, MCH 30.6, MCHC 32.8, RDW Std Deviation 45.6 H, RDW Coeff of Davidson 13.2, Plt Count 137 L, MPV 9.1, Immature Gran % (Auto) 0.300, Neut % (Auto) 68.3, Lymph % (Auto) 20.5, [place] % (Auto) 8.3, Eos % (Auto) 2.3, Baso % (Auto) 0.3, Absolute Neuts (auto) 5.0, Absolute Lymphs (auto) 1.51, Nucleated RBC % 0, PT 13.7, INR 1.0, APTT 28.2, Sodium 137, Potassium 3.9, Chloride 101, Carbon Dioxide 25.9, Anion Gap 9, BUN 43 H, Creatinine 1.63 H, Estim Creat Clear Calc 22.45 L, Est GFR (MDRD) Non-Af 32 L, BUN/Creatinine Ratio 26.1 H, Glucose 97, Calcium 9.3, Troponin T High Sens 37 H 10/14/25 11:51: Urine Color Yellow, Urine Clarity Cloudy, Urine pH 6.5, Ur Specific [place] 1.010, Urine Protein 100 H, Urine Glucose (UA) Normal, Urine Ketones Negative, Urine Occult Blood 50 H, Urine Nitrite Negative, Urine Bilirubin Negative, Urine Urobilinogen Normal, Ur Leukocyte Esterase 500 H, Urine RBC 0-5 SEEN, Urine WBC 50-100 SEEN, Ur Squamous Epith Cells 0 SEEN, Urine Bacteria 2+, Urine Mucus 0 SEEN Rhythm Strip Rhythm Strip: Sinus Rhythm Rate: 89 Ectopy: None Imaging Radiology Impression Brain CT 10/14/25 10:54 IMPRESSION: Stroke Alert: No acute intracranial abnormalities. The critical findings in the findings and impression above were relayed directly by me by telephone to Anam Ansari on 10/14/2025 at 11:06 am with readback verification. Reading Location: [facility] Head/Neck CTA 10/14/25 10:54 IMPRESSION: 1. No large vessel occlusion. 2. Moderate focal stenosis at the origin of the right internal carotid artery secondary to atherosclerotic plaque. 3. Mild focal stenosis of the origin of the left internal carotid artery secondary to atherosclerotic plaque. Reading Location: [id number] Assessment & Plan Assessment/Plan (1) UTI (urinary tract infection): (2) Acute alteration in mental status: (3) Slurred speech: PLAN: Plan Patient is an 80-year-old female who presented with slurred speech, fluctuating level of sensorium as well as multiple falls 1. Transient slurred speech ? Suspected to be secondary to TIA admitted to monitored bed initial imaging studies with head CT and CTA unremarkable ordered MRI and 2D echo. Patient already on aspirin and statin therapy will continue 2. Acute metabolic encephalopathy Secondary to cystitis patient started on ceftriaxone urine culture sent 3. Acute cystitis ? Patient did receive ceftriaxone in the ED without any reaction (has a reported allergy to cefaclor) urine culture sent from the ED follow-up on the result 4. Suspected dementia with occasional behavioral agitation ? Patient is on Xanax held on admission. Patient is on quetiapine did continue 5. Hypertension ? Blood pressure controlled, will continue with permissive hypertensive protocol since CVA has been ruled out 6. Dyslipidemia ?Patient is on statin therapy, continued at home dose 7. Acute kidney injury ? Baseline creatinineFrom 08/30/2025 was 1.13,, creatinine on admission was 1.63 patient started on IV hydration with repeat BMP ordered for a.m. 8. Restless leg syndrome ? Patient is on pramipexole continue 9. Depression with anxiety ? Patient is on duloxetine and Xanax as needed. Xanax was held on admission 10. DVT prophylaxis ? Subcu Lovenox dose adjusted for kidney function Time spent in the patient's overall evaluation,decision-making process, review of diagnostic data, adjustment of management, discussion with other providers, nursing nursing and ancillary staff involved in patient's care documentation, 75 Minutes Advance planning; did discuss with the patient and family regarding advanced directives as well as CODE STATUS. Did explain the various scenarios involved ( FULL CODE, DNR CCA, DNR CCA with no intubation, and DNR CC and what each meant) patient elected to be DNR CCA no intubation. Order was placed. Time spent on discussion 16 minutes. Charges/Coding Multi Select Codes Visit Charges Visit Charges: 44671 Init Hosp L3 Hospitalists' Procedures Procedures: 13046 Advncd Care Plan 30 Min
--- NOTE | 2025-10-14 13:08 | MRI_ITS ---
PROCEDURE: BRAIN WITHOUT CONTRAST 10/14/2025 REASON FOR EXAM: TIA TECHNIQUE: Procedure Code: MRIBR Modality: MR Procedure: BRAIN WITHOUT CONTRAST Multiplanar and multisequence images were obtained. COMPARISON: 10/03/2025 FINDINGS: BRAIN: No restricted diffusion to indicate acute infarction. No intracranial mass or hemorrhage. No midline shift or extra-axial fluid collection. No sulcal effacement. Mild high T2/FLAIR signal intensity in the deep white matter, likely microvascular ischemic changes. Mild cerebral volume loss with corresponding ventricular prominence. No cerebellar tonsillar ectopia. The central arterial and venous flow voids are patent. VENTRICLES: No hydrocephalus. ORBITS: Intraocular lens implants bilaterally. The orbits are otherwise unremarkable. SINUSES AND MASTOIDS: The sinuses and mastoid air cells are clear. BONES: No focal osseous lesion. MRI/Brain without Contrast IMPRESSION: No acute intracranial abnormality. Reading Location: [id number]
[2025-10-14 13:38] LABS: Troponin T High Sens 2 HR 36 ng/L (<=14)
--- NOTE | 2025-10-14 13:39 | ECHOD_ITS ---
Reason For Study Reason For Study: TIA/CVA Procedure This was a 2D Doppler, Color Flow transthoracic echocardiogram. Exam performed portable in patient room. Left Ventricle Normal size and thickness. Posterior hypokinesis. Estimated LVEF 45%. Stage I diastolic dysfunction. Right Ventricle Normal right ventricle. Atria The left and right atria are normal. Mitral Valve Mild posterior mitral valve annular calcification. Trivial mitral valve regurgitation. Tricuspid Valve Trivial tricuspid valve insufficiency. Unable to estimate RV systolic pressure due to insufficient tricuspid regurgitant envelope. Aortic Valve Aortic valve sclerosis without stenosis. Trivial aortic valve regurgitation. Mild diffuse aortic valve calcification. Pulmonic Valve The pulmonic valve is not well visualized. Trivial pulmonic valve insufficiency. Great Vessels Normal sized aortic root. Pericardium/Pleural No pericardial effusion. MMode/2D Measurements & Calculations LVIDd: 4.4 cm IVSd: 1.0 cm LVOT diam: 2.0 cm LVIDs: 3.1 cm LVPWd: 1.0 cm LVOT area: 3.0 cm2 RVDd: 3.2 cm FS: 29.3 % Ao root diam: 2.5 cm asc Aorta Diam: 2.7 cm LAV(MOD- bp): 31.8 ml LAV(MOD- bp) Indexed: 21.3 ml/m2 LAV(MOD- sp2): 33.6 ml LAV(MOD- sp4): 28.8 ml SV(MOD- sp4): 25.6 ml LVAd ap4: 22.0 cm2 LVAd ap2: 21.7 cm2 LVLd ap4: 6.6 cm LVLd ap2: 7.2 cm SI(MOD- sp4): 17.1 ml/m2 EDV(MOD-sp4): 60.2 ml EDV(MOD-sp2): 56.6 ml EDV(sp4-el): 62.0 ml EDV(sp2-el): 55.3 ml LVAs ap4: 15.1 cm2 LVAs ap2: 14.6 cm2 LVLs ap4: 5.8 cm LVLs ap2: 6.4 cm ESV(MOD-sp4): 34.6 ml ESV(MOD-sp2): 29.7 ml ESV(sp4-el): 33.5 ml ESV(sp2-el): 28.1 ml EF(MOD-sp4): 42.5 % EF(MOD-sp2): 47.5 % EF(sp4-el): 46.0 % SV(MOD-sp2): 26.9 ml SV(sp4-el): 28.5 ml Ao sinus diam: 2.8 cm SI(MOD-sp2): 18.0 ml/m2 Ao ST Junction: 2.2 cm LA dimension(2D): 3.4 cm LA A4 area: 13.7 cm2 TAPSE: 1.4 cm RA A4 area: 10.3 cm2 Doppler Measurements & Calculations MV A max genaro: 121.7 cm/sec Lat Peak E' Genaro: 6.5 cm/sec Med Peak E' Gnearo: 4.4 cm/sec Ao V2 max: 133.4 cm/sec LV V1 max: 101.8 cm/sec SV(LVOT): 71.3 ml Ao max P.1 mmHg LV V1 max P.1 mmHg Ao V2 mean: 97.7 cm/sec LV V1 mean P.5 mmHg Ao mean P.2 mmHg LV V1 mean: 76.6 cm/sec Ao V2 VTI: 33.8 cm LV V1 VTI: 23.6 cm AV (velocity ratio): 0.70 CARTER(I,D): 2.1 cm2 CARTER(V,D): 2.3 cm2 PA V2 max: 74.2 cm/sec ECHO/Echo Complete Interpretation Summary Posterior hypokinesis. Estimated LVEF 45%. Stage I diastolic dysfunction. Mild posterior mitral valve annular calcification. Trivial mitral valve regurgi tation. Aortic valve sclerosis without stenosis. Trivial aortic valve regurgitation. Ordering Physician: Herminio Vuong Performed By: Bianca Umanzor RDCS
--- NOTE | 2025-10-14 15:15 | CASEMGMT ---
OSMEL ANGEL Face to Face with patient for initial transition planning/care coordination assessment. OSMEL ANGEL introduced self and role at [facility]. Patient has history of dementia and out of room for testing, and daughter in room. and daughter willing to participate in assessment and is able to answer all questions appropriately. Care providers, pharmacy, and demographics verified. Strata:2 PCP: Katerina Specialists: Kain, neurologist; Lore, paper inserter; Preferred Pharmacy: [facility] Insurance: [facility] Prescription Benefit: yes Living Will/HPOA: yes, Burton Hurst LNOK: , daughter Living Arrangements: Patient lives with in a single story home with 2 steps and railing to enter the home. Per , patient is independent for self care. Transportation: DME/HHC: Patient has shower chair, cane, grab bars, walker at home. Patient has had [facility] HHC in the past. No previous SNF. Family would like patient to discharge home. Daughter voiced concern for support in the home to assist with care. OSMEL ANGEL updated and daughter that therapy is pending and further workup is needed to determine needs at discharge, family voiced understanding. RN CM did provide private duty list, support group information, and Direction Home information. states he has no further needs or concerns at this time. CM to follow for discharge planning needs that may arise. Disposition Plan: TBD, anticipate home with family support. Will monitor for possible HHC. Paloma SAUNDERS, OSMEL, CM
[2025-10-14] MEDS: 0.9% Saline Lock 10 ML Syringe IV ×2 (15:37→18:19)
[2025-10-14] MEDS: 0.9% Normal Saline (1000mL) 1,000 ML 150 ML IV (15:37)
[2025-10-14 16:43] LABS: Troponin T High Sens 4 HR 39 ng/L (<=14)
[2025-10-15] MEDS: 0.9% Normal Saline (1000mL) 1,000 ML 150 ML IV ×2 (01:47→14:38)
[2025-10-15 02:45] VITALS: BMI 26.2
[2025-10-15 03:30] VITALS: BP 142/51; PULSE 80; RESP 16; TEMP 35.9; O2SAT 98
[2025-10-15 04:02] VITALS: BMI 28.2
[2025-10-15 05:43] LABS: Hematocrit 34.2 % (37-47); Hemoglobin 11.1 g/dL (12.0-15.0); Immature Granulocytes Count 0.030 X10^3/uL (0.0-0.0); Mean Corp Hgb Conc 32.5 g/dL (32-36); Mean Corpuscular Volume 93.7 fL (81-99); Mean Platelet Vol. 9.8 fl (6.2-12.0); NRBC Flagged by Analyzer 0 % (0-5); Platelet Count 158 K/mm3 (150-450); RBC Distribution Width CV 13.4 % (11.6-14.6); RBC Distribution Width SD 46.1 fl (35.1-43.9); Red Blood Count 3.65 M/mm3 (4.2-5.4); White Blood Count 6.7 K/mm3 (4.4-11.0)
--- NOTE | 2025-10-15 06:10 | PN.HOSP_ITS ---
Reason for Visit Chief Complaint: Slurred speech and multiple falls Subjective Subjective Patient is an 80-year-old female who presented with slurred speech, fluctuating level of sensorium as well as multiple falls. Acute CVA ruled out with a negative MRI. Patient was found to have cystitis on admission started on ceftriaxone urine culture sent Objective Data Objective Data Vital Signs: Vital Signs Temp Pulse Resp BP Pulse Ox O2 Del Method 96.7 F L 80 16 142/51 H 98 Room Air 10/15/25 03:30 10/15/25 03:30 10/15/25 03:30 10/15/25 03:30 10/15/25 03:30 10/15/25 03:30 Oxygen Delivery Method Room Air Weight: 57.1 kg Body Mass Index (BMI) 28.2 Intake & Output: Intake and Output for Last 24 Hours 10/13/25 10/14/25 10/15/25 23:59 23:59 23:59 Intake Total 530 / 530 1000 / 1000 Balance 530 / 530 1000 / 1000 Lab / Micro Data 10/15/25 05:00 10/15/25 05:00 Labs: Laboratory Results - last 24 hr 10/14/25 10:48: POC Glucose 72 L 10/14/25 11:30: WBC 7.4, RBC 3.56 L, Hgb 10.9 L, Hct 33.2 L, MCV 93.3, MCH 30.6, MCHC 32.8, RDW Std Deviation 45.6 H, RDW Coeff of [place] 13.2, Plt Count 137 L, MPV 9.1, Immature Gran % (Auto) 0.300, Neut % (Auto) 68.3, Lymph % (Auto) 20.5, [place] % (Auto) 8.3, Eos % (Auto) 2.3, Baso % (Auto) 0.3, Absolute Neuts (auto) 5.0, Absolute Lymphs (auto) 1.51, Nucleated RBC % 0, PT 13.7, INR 1.0, APTT 28.2, Sodium 137, Potassium 3.9, Chloride 101, Carbon Dioxide 25.9, Anion Gap 9, BUN 43 H, Creatinine 1.63 H, Estim Creat Clear Calc 22.45 L, Est GFR (MDRD) Non-Af 32 L, BUN/Creatinine Ratio 26.1 H, Glucose 97, Hemoglobin A1c 5.5, Calcium 9.3, Troponin T High Sens 37 H 10/14/25 11:51: Urine Color Yellow, Urine Clarity Cloudy, Urine pH 6.5, Ur Specific [place] 1.010, Urine Protein 100 H, Urine Glucose (UA) Normal, Urine Ketones Negative, Urine Occult Blood 50 H, Urine Nitrite Negative, Urine Bilirubin Negative, Urine Urobilinogen Normal, Ur Leukocyte Esterase 500 H, Urine RBC 0-5 SEEN, Urine WBC 50-100 SEEN, Ur Squamous Epith Cells 0 SEEN, Urine Bacteria 2+, Urine Mucus 0 SEEN 10/14/25 13:00: Troponin T Hi Sens 2 Hr 36 H 10/14/25 16:11: Troponin T Hi Sens 4Hr 39 H 10/15/25 05:00: WBC 6.7, RBC 3.65 L, Hgb 11.1 L, Hct 34.2 L, MCV 93.7, MCH 30.4, MCHC 32.5, RDW Std Deviation 46.1 H, RDW Coeff of [place] 13.4, Plt Count 158, MPV 9.8, Immature Gran % (Auto) 0.500, Neut % (Auto) 64.0, Lymph % (Auto) 25.1, [place] % (Auto) 7.2, Eos % (Auto) 2.7, Baso % (Auto) 0.5, Absolute Neuts (auto) 4.3, Absolute Lymphs (auto) 1.67, Nucleated RBC % 0 Radiography Diagnostic Testing: Radiology Impression Brain CT 10/14/25 10:54 IMPRESSION: Stroke Alert: No acute intracranial abnormalities. The critical findings in the findings and impression above were relayed directly by me by telephone to Anam Ansari on 10/14/2025 at 11:06 am with readback verification. Reading Location: [id number] Head/Neck CTA 10/14/25 10:54 IMPRESSION: 1. No large vessel occlusion. 2. Moderate focal stenosis at the origin of the right internal carotid artery secondary to atherosclerotic plaque. 3. Mild focal stenosis of the origin of the left internal carotid artery secondary to atherosclerotic plaque. Reading Location: [id number] Brain MRI 10/14/25 13:08 IMPRESSION: No acute intracranial abnormality. Reading Location: [facility] Rhythm Strip Rhythm Strip: Sinus Rhythm Rate: 89 Ectopy: None Physical Exam Narrative GENERAL: In no apparent distress HEENT: Atraumatic; normocephalic EYES; Anicteric, Normal Conjunctiva NECK; supple, normal thyroid, RESPIRATORY: Diminished to auscultation CARDIOVASCULAR: Regular S1 S2, GI: soft, normoactive bowel sounds, : No Renal angle tenderness; EXTREMITIES: No edema, no clubbing, MUSCULOSKELETAL: no muscle wasting NEURO: Awake; no lateralizing signs. SKIN: No Rash PSYCH; Flat affect Assessment & Plan Assessment/Plan (1) UTI (urinary tract infection): (2) Acute alteration in mental status: (3) Slurred speech: PLAN: Plan Patient is an 80-year-old female who presented with slurred speech, fluctuating level of sensorium as well as multiple falls 1. Transient slurred speech ? Suspected to be secondary to TIA admitted to monitored bed initial imaging studies with head CT and CTA unremarkable ordered MRI and 2D echo. Patient already on aspirin and statin therapy will continue ? 10/15/2025; patient MRI was negative for CVA the NIH's which had been ordered on admission subsequently discontinued 2. Acute metabolic encephalopathy Secondary to cystitis patient started on ceftriaxone urine culture sent ?10/15/2025; encephalopathy resolved patient back to her baseline 3. Acute cystitis ? Patient did receive ceftriaxone in the ED without any reaction (has a reported allergy to cefaclor) urine culture sent from the ED follow-up on the result 4. Suspected dementia with occasional behavioral agitation ? Patient is on Xanax held on admission. Patient is on quetiapine did continue ? 10/15/2025; patient cooperative this a.m. 5. Hypertension ? Blood pressure controlled, will continue with permissive hypertensive protocol since CVA has been ruled out 6. Dyslipidemia ?Patient is on statin therapy, continued at home dose 7. Acute kidney injury ? Baseline creatinineFrom 08/30/2025 was 1.13,, creatinine on admission was 1.63 patient started on IV hydration with repeat BMP ordered for a.m. 8. Restless leg syndrome ? Patient is on pramipexole continue 9. Depression with anxiety ? Patient is on duloxetine and Xanax as needed. Xanax was held on admission 10. DVT prophylaxis ? Subcu Lovenox dose adjusted for kidney function Time spent in the patient's overall evaluation,decision-making process, review of diagnostic data, adjustment of management, discussion with other providers, nursing nursing and ancillary staff involved in patient's care documentation, 40 Minutes Charges/Coding Visit Charges Inpatient E&M: 97305 Subs Hosp L2 NIHSS NIHSS Nursing Documentation NIHSS Nursing Documentation: NIHSS: Ischemic Stroke/TIA Start: 10/14/25 13:39 Text: For PCU Patients: NIH and Neuro Check every 4 Status: Complete hours, PRN and with change in RN caregiver. Freq: [id number] Protocol: Activity Type Activity Date Activity User E-sign Co-sign Detail Recorded Client Recorded Date Recorded By Document 10/14/25 13:42 EVETTE [id number] 10/14/25 13:49 EVETTE 10/14/25 13:42 NIH Stroke Scale [NIHSS] A score of 0 is normal or asymptomatic . Total possible score is 42. Inpatient: RN or Physician to activate a stroke alert for onset of new stroke symptoms or with NIHSS increase >/= 3 points. Following change in neurological status, NIHSS will be performed per physician order or more frequently PRN. -1a. Level of Consciousness 0 - Alert; keenly responsive -1b. LOC Questions 1 - Answers ONE question correctly -1c. LOC Commands 0 - Performs BOTH tasks correctly -2. Best Gaze 0 - Normal -3. Visual 0 - No visual loss -4. Facial Palsy 0 - Normal symmetrical movements -5a. Left Arm 0 - No drift; arm holds 90 ( or 45) degrees for full 10 seconds -5b. Right Arm 0 - No drift; arm holds 90 ( or 45) degrees for full 10 seconds -6a. Left Leg 0 - No drift; leg holds 30- degree position for full 5 seconds -6b. Right Leg 0 - No drift; leg holds 30- degree position for full 5 seconds -7. Limb Ataxia 0 - Absent -8. Sensory 0 - Normal; no sensory loss -9. Best Language 0 - No aphasia; normal -10. Dysarthria 0 - Normal -11. Extinction and Inattention 0 - No abnormality -Total 1 Query Text:A score of 0 is normal or asymptomatic. Total possible score is 42 . ED: Notify Physician for NIHSS increase by > / = 3 points. Inpatient: RN or Physician to activate a stroke alert for NIHSS increase of > / = 3 points. Coma Scale [Assess] -Eye Opening Spontaneous -Motor Obeys Commands -Verbal Oriented [Total] -Coma Scale Total 15
[2025-10-15 06:12] LABS: Anion Gap 11 (5-15); BUN 37 mg/dL (4-19); BUN/Creat Ratio 26.6 RATIO (10-20); Calcium,Total 9.1 mg/dL (7.6-11.0); Carbon Dioxide 23.6 mmol/L (21.0-32.0); Chloride 108 mmol/L (98-108); Estimated Creatinine Clearance 25.74 ml/min (50-250); Glucose 95 mg/dL (70-99); Magnesium 2.1 mg/dL (1.5-2.2); Potassium 3.5 mmol/L (3.3-5.1)
[2025-10-15 06:31] LABS: Cholesterol 160 mg/dL (<=200); Low Density Lipoprotein Calc. 78 mg/dL; Triglycerides 102 mg/dL; Very Low Density Lipoprotein 20 mg/dL (5-40); cholesterol:hdl ratio screen 2.51
[2025-10-15 07:42] VITALS: O2SAT 97
[2025-10-15 07:49] VITALS: BP 127/51; PULSE 88; RESP 16; TEMP 35.8; O2SAT 99
--- NOTE | 2025-10-15 09:01 | CASEMGMT ---
Social Work Per imaging pt negative for stroke, therefore PHQ9 not completed. ANA Bella
[2025-10-15 12:22] VITALS: BMI 28.2
--- NOTE | 2025-10-15 12:26 | CON.PCM.NE_ITS ---
Assessment and Plan: Neuro Assessment/Plan TREY CALVERT is a 80 F with a past medical history of essential hypertension, dyslipidemia, recent diagnosis of dementia , being evaluated by Teleneurology for worsening confusion, facial asymmetry. On history, patient has had UTI for many months off and on and while her hallucinations do worsen with this, unusual for her to be altered. Symptoms lasted several hours and there may have been some facial involvement and now she has new R facial droop on exam. Concern for TIA vs MRI negative stroke vs recrudescence of old symptoms in setting of UTI Plan: ? The following tests for stroke work-up have been/should be obtained:? ? Neuroimaging: MRI Brain with no stroke ? Vascular imaging: no significant athero noted ? Cardiac testing: no acute findings, EF normal ? Cardiac monitoring: telemetry while in patient ? Labs: HgbA1c 5.5, LDL 78 ?BP goal normotensive, < 140/80mm Hg while in hospital ?Anti-platelet medication: Aspirin 81mg daily ?Statin therapy: atorvastatin 40mg ?Occupational/Physical therapy consults ?NPO until swallow evaluation.? IVF until able to take po ?DVT prophylaxis with SCDs and heparin SQ. ?Vascular risk factor modification.? The following are the recommended guidelines: LDL Goal < 70 Smoking Cessation Diabetes management senior care Blood pressure control should achieve <130/80 mmHg.? BP management should aim to achieve tank terminal gauger control in a reasonable amount of time, taking into consideration the individual patient's requirements and characteristics. Weight Management: Goal for BMI is 18.5-24.9 kg/m2. Alcohol: No more than 2 drinks/day for men or 1 drink/day for non- women. Promote lifestyle modification: weight control, physical activity, moderation of alcohol intake, moderate sodium intake. Ok to continue Xanax in hospital as was a routine medication outpatient Continue treatment of UTI per primary team. . I personally attended this patient and spent a total time of 45minutes evaluating this patient including clinical assessment, review of chart, medical history imaging, and determining appropriate treatment and workup. HPI Consult Data Date of Consult: 10/16/25 HPI Narrative HPI Narrative: TREY CALVERT, is a 80 F with past medical history is again for essential hypertension, dyslipidemia, recent diagnosis of dementia who was brought to the emergency department by the family on account of slurred speech. Patient's symptoms apparently started a day prior to her being admitted. Per patient who provided much of the history patient had fallen a couple of times the day prior. She went to bed without any event. Patient did wake her up and found patient to have slurred speech. She later experienced 2 falls. This necessitated patient taking patient to PCPs office where a suspicion of CVA was entertained. Patient was reported to have fallen asleep twice was at the PCPs office. Patient subsequently sent to the ED. Initial imaging studies came back unremarkable. Patient was however found to have abnormal urinalysis consistent with UTI. Admitted to monitored bed for further management Neurologic History Pt's was able to provide history. Patient fell over while leaning to pick something up on Monday night. She did not hit head but had hard time getting up. Monday morning, she was confused and slurred and was not waking up properly. She fell back asleep immediately after. states she was weak in the face as well. She fell later in the day in the closet and went to visit family doctor and was brought to hospital after. states did NOT have facial droop, just looked sad and did not look normal. Currently patient is back to normal. She started improving yesterday by time she got to hospital (several hrs of symptoms) but this morning is she is back to normal. She has been fighting a UTI for a while and will not go away. She has had a chronic UTI off and on since March 2024. Recently she has started the following medications: folinic acid, amlodipine, Vit B6. Hallucinations - had recently started in summer. Started as auditory hallucinations, then became visual hallucinations and has gotten progressively worse. The hallucinations are all the time. Since she started on Augmentin, the hallucinations have improved. There are still auditory hallucinations but have improved wrt visual ones and the hostility of the hallucinations. Exam: -? General: Laying comfortably in bed; in no acute distress. -? HENT: Normal oropharynx and mucosa. Normal external appearance of ears and nose. Exophthalmos. -? Neck: Supple, no pain or tenderness -? CV:? No peripheral edema. -? Pulmonary:? Normal respiratory effort. -? Ext: No cyanosis, edema, or deformity -? Skin: No rash. Normal palpation of skin.? -? Musculoskeletal: full range of motion; no joint tenderness. Normal digits and nails by inspection. No clubbing. -? NEURO: -? Mental Status: The patient was alert and oriented to time, place, and person. Normal recent/remote memory, concentration, and general fund of knowledge. -? Language: speech is clear.? Naming, repetition, fluency, and comprehension intact. -? Cranial Nerves: PERRL 3mm/brisk. EOMI, visual anderson full, R facial asymmetry, facial sensation intact, hearing intact, tongue midline, no evidence of atrophy or fibrillations. -? Motor: RUE pronation with no drift -? Detailed strength exam as performed by the nurse/BRITTANY and witnessed by the physician: l R L SA 5 5 EE EF WE WF Manufacturing Accountant 5 5 HF KE KF DF PF -? Tone: is normal and bulk is normal -? Sensation- Intact to light touch bilaterally -? Coordination: No dysmetria on [id number], finger follow finger or [id number]. -? Gait- deferred [facility] Medical History Hypertension Anxiety Low iron Bladder disease Loss of consciousness History of ulceration Gastroparesis Depression History of edema Wears hearing aid Post-menopausal DVT (deep venous thrombosis) Restless legs Back pain Injury of head and neck Former smoker Shortness of breath on exertion History of pain when walking History of stress test Hypertension Transaminitis Acute on chronic respiratory failure with hypoxemia Acute respiratory failure GERD (gastroesophageal reflux disease) Former smoker High cholesterol Arthritis Osteoarthritis Home Medications ?Medication ?Instructions ?Recorded ?Last Taken ?Type rosuvastatin 40 mg tablet 40 mg PO QHS CHOLESTEROL 08/27/24 History menthol 4 % topical gel (Biofreeze 1 applic topical DA GARETT PRN PAIN 07/21/21 Unknown History (menthol)) pramipexole 1 mg tablet 0.5 mg PO BID RLS 06/04/24 0 06/13/25 History cholecalciferol (vitamin D3) 25 25 mcg PO DAILY vitami n 03/18/25 Unknown History mcg (1,000 unit) capsule (Vitamin D3) vitamin B complex 1 cap PO DAILY vitamin 03/18 Unknown History aspirin 81 mg tablet 81 mg PO BID heart health 08/29/25 History sucralfate 1 gram tablet 1 g PO BID stomach #180 tabs 05/19/25 Unknown Rx duloxetine 60 mg capsule,delayed 60 mg PO QHS mental h ealth #90 caps 08/19/25 Unknown Rx release leucovorin 4 mg-pyridoxal 1 tab-cap PO QDAY #90 tabs 1 Unknown Rx phosphate 50 mg-mecobalamin 2 mg tablet (Folinic-Plus) amlodipine 5 mg tablet 5 mg PO DAILY 30 days #30 ta bs 08/30/25 Unknown Rx chlorthalidone 50 mg tablet 25 mg (1/2 x 50 mg) PO QDA Y 30 08/30/25 Unknown Rx days #15 tabs losartan 50 mg tablet 50 mg PO DAILY 30 days #30 t abs 08/30/25 Unknown Rx quetiapine 50 mg tablet 50 mg PO BID #60 tabs Unknown Rx alprazolam 0.5 mg tablet 0.5 mg PO BID PRN restlessne ss #60 10/10/25 Unknown Rx tabs Allergy/AdvReac Type Severity Reaction Status Date / Time meperidine HCl (From Demerol) Allergy Severe Swelling Verified 10/14/25 11:03 poison adelaide extract (Poison Allergy Rash Verified 10/14/25 11:03 Adelaide Extract) atorvastatin calcium (From AdvReac Upset Verified 10/14/25 11:03 Lipitor) Stomach cefaclor (From Ceclor) AdvReac PALPITATIONS, Verified 10/14/25 11:03 CHEST PRESSURE, SHORT OF BREATH doxycycline AdvReac Upset Verified 10/14/25 11:03 Stomach hydrocodone AdvReac Upset Verified 10/14/25 11:03 Stomach Family History Mother Arthritis CVA (cerebral vascular accident) Father Myocardial infarction Heart disease Hypertension High cholesterol Surgical History History of lumbar fusion Hx of total hip arthroplasty History of esophagogastroduodenoscopy (EGD) History of appendectomy History of tonsillectomy Hx of colonoscopy Hx of bilateral breast reduction surgery Hx of surgical procedure History of hip replacement History of toe surgery History of renal stent History of cataract surgery History of knee replacement History of extraction of renal calculus History of carotid endarterectomy History of koyrb-[id number]-[id number] bypass Social History Smoking Status: Former smoker Tobacco: How many years used: 40 Electronic Cigarette Use: not used how long ago did patient quit smokin years ago second hand exposure: No alcohol intake: current alcohol intake frequency: holidays/special occasions only substance use type: does not use alan/denominational: None seatbelt use: sometimes Vital Signs Vital Signs Vital Signs: 10/14/25 12:48 10/14/25 12:50 10/14/25 13:49 Temperature 98.3 F 96 F L 97.4 F L Temperature Source Oral Oral Pulse Rate 80 86 85 Pulse Strength Respiratory Rate 16 15 18 Respiratory Effort Respiratory Depth Respiratory Pattern Blood Pressure 166/70 H 136/54 H 142/59 H Blood Pressure Mean 102 81 86 Blood Pressure Source Monitor Blood Pressure Position Semi-Fowlers Blood Pressure Location Right Arm Pulse Ox 99 99 99 Oxygen Delivery Method Room Air Room Air 10/14/25 14:23 10/14/25 17:36 10/14/25 18:20 Temperature 97.5 F L Temperature Source Axillary Pulse Rate 78 Pulse Strength Respiratory Rate 14 Respiratory Effort Normal Non-Labored Respiratory Depth Normal Respiratory Pattern Normal Blood Pressure 136/43 H Blood Pressure Mean 74 Blood Pressure Source Blood Pressure Position Blood Pressure Location Pulse Ox 98 100 Oxygen Delivery Method Room Air Room Air Room Air 10/14/25 20:45 10/14/25 21:00 10/14/25 22:00 Temperature 97.9 F Temperature Source Temporal Pulse Rate 80 Pulse Strength Normal (2+) Respiratory Rate 16 Respiratory Effort Normal Non-Labored Respiratory Depth Normal Respiratory Pattern Normal Blood Pressure 127/47 H Blood Pressure Mean 73 Blood Pressure Source Blood Pressure Position Blood Pressure Location Pulse Ox 96 Oxygen Delivery Method Room Air Room Air 10/15/25 03:30 10/15/25 07:42 10/15/25 07:49 Temperature 96.7 F L 96.4 F L Temperature Source Temporal Temporal Pulse Rate 80 88 Pulse Strength Respiratory Rate 16 16 Respiratory Effort Respiratory Depth Respiratory Pattern Blood Pressure 142/51 H 127/51 H Blood Pressure Mean 81 76 Blood Pressure Source Monitor Blood Pressure Position Semi-Fowlers Blood Pressure Location Right Arm Pulse Ox 98 97 99 Oxygen Delivery Method Room Air Room Air Room Air 10/15/25 10:00 Temperature Temperature Source Pulse Rate Pulse Strength Normal (2+) Respiratory Rate Respiratory Effort Respiratory Depth Respiratory Pattern Blood Pressure Blood Pressure Mean Blood Pressure Source Blood Pressure Position Blood Pressure Location Pulse Ox Oxygen Delivery Method Weight Weight: 57.1 kg Body Mass Index (BMI) 28.2 EEG Results Procedure Details EEG Procedure Details: TREY CALVERT is a 80 year old F with a past medical history of , who presents for evaluation of Electroencephalogram on DATE at TIME Lab / Micro Data 10/16/25 06:10 10/16/25 06:10 Labs: Laboratory Results - last 24 hr 10/14/25 11:30: Hemoglobin A1c 5.5 10/14/25 13:00: Troponin T Hi Sens 2 Hr 36 H 10/14/25 16:11: Troponin T Hi Sens 4Hr 39 H 10/15/25 05:00: WBC 6.7, RBC 3.65 L, Hgb 11.1 L, Hct 34.2 L, MCV 93.7, MCH 30.4, MCHC 32.5, RDW Std Deviation 46.1 H, RDW Coeff of Davidson 13.4, Plt Count 158, MPV 9.8, Immature Gran % (Auto) 0.500, Neut % (Auto) 64.0, Lymph % (Auto) 25.1, [place] % (Auto) 7.2, Eos % (Auto) 2.7, Baso % (Auto) 0.5, Absolute Neuts (auto) 4.3, Absolute Lymphs (auto) 1.67, Nucleated RBC % 0, Sodium 142, Potassium 3.5, Chloride 108, Carbon Dioxide 23.6, Anion Gap 11, BUN 37 H, Creatinine 1.38 H, E stim Creat Clear Calc 25.74 L, Est GFR (MDRD) Non-Af 39 L, BUN/Creatinine Ratio 26.6 H, Glucose 95, Calcium 9.1, Phosphorus 3.8, Magnesium 2.1, Triglycerides 102, Cholesterol 160, LDL Cholesterol, Calc 78, VLDL Cholesterol 20, HDL Cholesterol 64, Cholesterol/HDL Ratio 2.51 Micro: Microbiology 10/14/25 11:51 Urine Catheter - Catheter Urine Culture - Preliminary Gram negative reggie Rhythm Strip Rhythm Strip: Sinus Rhythm Rate: 89 Ectopy: None Imaging Radiology Impression Brain MRI 10/14/25 13:08 IMPRESSION: No acute intracranial abnormality. Reading Location: [facility] Echocardiogram 10/14/25 13:39 Interpretation Summary Posterior hypokinesis. Estimated LVEF 45%. Stage I diastolic dysfunction. Mild posterior mitral valve annular calcification. Trivial mitral valve regurgitation. Aortic valve sclerosis without stenosis. Trivial aortic valve regurgitation. Ordering Physician: Herminio Vuong Performed By: Bianca Umanzor RDCS Active Medications Active Medications Active Medications: Current Medications Generic Name Dose Route Start Last Admin Trade Name Freq PRN Reason Stop Dose Admin Acetaminophen 650 mg 10/14/25 13:39 Acetaminophen 325 Mg Tablet PO Q6H PRN PRN Pain 1-10 Or Fever>100.7 Al Hydroxide/Mg Hydroxide 30 ml 10/14/25 13:39 Mag Hydrox/Al Hydrox/Simeth 30 Ml Udc PO Q6H PRN PRN Gastric Burning Albuterol Sulfate 2.5 mg 10/14/25 13:39 Albuterol 2.5 Mg/3 Ml Vial.Neb. INHALATION Q2H PRN PRN SOB &/OR WHEEZING Amlodipine Besylate 5 mg 10/15/25 10:00 10/15/25 09:38 Amlodipine 5 Mg Tablet PO 5 mg DAILY LETA Administration Protocol Aspirin 81 mg 10/15/25 08:00 10/15/25 09:38 Aspirin 81 Mg Tab.Chew PO 81 mg BREAKFAST LETA Administration Duloxetine HCl 60 mg 10/14/25 22:00 10/14/25 21:04 Duloxetine Hcl 60 Mg Capsule PO 60 mg QHS LETA Administration Enoxaparin Sodium 30 mg 10/15/25 10:00 10/15/25 09:39 Enoxaparin 30 Mg/0.3 Ml Syringe SC 30 mg DAILY LETA Administration Guaifenesin 20 ml 10/14/25 13:39 Guaifenesin 10 Ml Udc (200mg/10ml) PO Q4H PRN PRN COUGH Hydralazine HCl 5 mg 10/14/25 13:39 Hydralazine 20 Mg/Ml Vial IV 10/15/25 13:39 Q30M PRN maintain BP parameters with HR <60 Ceftriaxone Sodium 1 gm in 50 mls @ 100 mls/hr 10/15/25 10:00 10/15/25 11:16 Rocephin IV 10/22/25 10:01 Infused Q24 LETA Infusion Sodium Chloride 250 mls @ 15 mls/hr 10/14/25 14:21 IV .[id number] PRN Saline Flush Sodium Chloride 250 mls @ 15 mls/hr 10/14/25 14:21 IV .[id number] PRN Additional IVPB Infusion Labetalol HCl 10 - 20 mg 10/14/25 13:39 Labetalol 20 Mg/4 Ml Vial IV 10/15/25 13:39 Q10M PRN PRN maintain BP parameters with HR >/=60 Losartan Potassium 50 mg 10/15/25 10:00 10/15/25 09:39 Losartan Potassium 50 Mg Tablet PO 50 mg DAILY LETA Administration Protocol Nitroglycerin 0.4 mg 10/14/25 13:39 Nitroglycerin (Inpatient Use) 0.4 Mg Tab.Subl SL Q5M PRN CARDIAC/CHEST PAIN Ondansetron HCl 4 mg 10/14/25 13:39 Ondansetron 4 Mg/2 Ml Vial IV Q8H PRN PRN NAUSEA/VOMITING Pramipexole Dihydrochloride 0.5 mg 10/14/25 22:00 10/15/25 09:39 Pramipexole Di-Hcl 0.5 Mg Tablet PO 0.5 mg BID LETA Administration Quetiapine Fumarate 50 mg 10/14/25 22:00 10/15/25 09:39 Quetiapine 25 Mg Tablet PO 50 mg BID LETA Administration Rosuvastatin Calcium 40 mg 10/14/25 22:00 10/14/25 21:04 Rosuvastatin 20 Mg Tablet PO 40 mg QHS LETA Administration Senna/Docusate Sodium 2 tablet 10/14/25 13:39 Senna/Docusate Sodium 1 Tablet PO BID PRN PRN Constipation Sodium Chloride 10 - 40 ml 10/14/25 14:21 10/14/25 18:19 0.9% Saline Lock 10 Ml Syringe IV 10 ml UD PRN Administration SALINE FLUSH Sucralfate 1 gm 10/14/25 22:00 10/15/25 06:10 Sucralfate 1 Gm Tablet PO 1 gm 0700,1600 LETA Administration NIHSS NIHSS Nursing Documentation NIHSS Nursing Documentation: NIHSS: Ischemic Stroke/TIA Start: 10/14/25 13:39 Text: For PCU Patients: NIH and Neuro Check every 4 Status: Complete hours, PRN and with change in RN caregiver. Freq: [id number] Protocol: Activity Type Activity Date Activity User E-sign Co-sign Detail Recorded Client Recorded Date Recorded By Document 10/14/25 13:42 EVETTE [id number] 10/14/25 13:49 EVETTE 10/14/25 13:42 NIH Stroke Scale [NIHSS] A score of 0 is normal or asymptomatic . Total possible score is 42. Inpatient: RN or Physician to activate a stroke alert for onset of new stroke symptoms or with NIHSS increase >/= 3 points. Following change in neurological status, NIHSS will be performed per physician order or more frequently PRN. -1a. Level of Consciousness 0 - Alert; keenly responsive -1b. LOC Questions 1 - Answers ONE question correctly -1c. LOC Commands 0 - Performs BOTH tasks correctly -2. Best Gaze 0 - Normal -3. Visual 0 - No visual loss -4. Facial Palsy 0 - Normal symmetrical movements -5a. Left Arm 0 - No drift; arm holds 90 ( or 45) degrees for full 10 seconds -5b. Right Arm 0 - No drift; arm holds 90 ( or 45) degrees for full 10 seconds -6a. Left Leg 0 - No drift; leg holds 30- degree position for full 5 seconds -6b. Right Leg 0 - No drift; leg holds 30- degree position for full 5 seconds -7. Limb Ataxia 0 - Absent -8. Sensory 0 - Normal; no sensory loss -9. Best Language 0 - No aphasia; normal -10. Dysarthria 0 - Normal -11. Extinction and Inattention 0 - No abnormality -Total 1 Query Text:A score of 0 is normal or asymptomatic. Total possible score is 42 . ED: Notify Physician for NIHSS increase by > / = 3 points. Inpatient: RN or Physician to activate a stroke alert for NIHSS increase of > / = 3 points. Coma Scale [Assess] -Eye Opening Spontaneous -Motor Obeys Commands -Verbal Oriented [Total] -Coma Scale Total 15
[2025-10-15 14:17] VITALS: BP 106/44; PULSE 74; RESP 18; TEMP 36.2; O2SAT 99
[2025-10-15 15:43] VITALS: BP 143/59; PULSE 75; RESP 18; TEMP 36.4; O2SAT 94
[2025-10-15 20:20] VITALS: BP 152/52; PULSE 84; RESP 16; TEMP 36.5; O2SAT 97
[2025-10-16 03:00] VITALS: BP 131/50; PULSE 77; RESP 14; TEMP 36.8; O2SAT 97
[2025-10-16 03:28] VITALS: BMI 28.2
[2025-10-16 05:46] VITALS: BMI 28.5
[2025-10-16 05:54] VITALS: BMI 28.3
[2025-10-16 06:33] LABS: Hematocrit 32.8 % (37-47); Hemoglobin 11.0 g/dL (12.0-15.0); Immature Granulocytes Count 0.020 X10^3/uL (0.0-0.0); Mean Corp Hgb Conc 33.5 g/dL (32-36); Mean Corpuscular Volume 91.6 fL (81-99); Mean Platelet Vol. 9.5 fl (6.2-12.0); NRBC Flagged by Analyzer 0 % (0-5); Platelet Count 144 K/mm3 (150-450); RBC Distribution Width CV 13.6 % (11.6-14.6); RBC Distribution Width SD 46.3 fl (35.1-43.9); Red Blood Count 3.58 M/mm3 (4.2-5.4); White Blood Count 5.8 K/mm3 (4.4-11.0)
[2025-10-16 06:56] LABS: Anion Gap 10 (5-15); BUN 34 mg/dL (4-19); BUN/Creat Ratio 26.3 RATIO (10-20); Calcium,Total 9.1 mg/dL (7.6-11.0); Carbon Dioxide 22.4 mmol/L (21.0-32.0); Chloride 110 mmol/L (98-108); Estimated Creatinine Clearance 27.79 ml/min (50-250); Glucose 87 mg/dL (70-99); Potassium 3.9 mmol/L (3.3-5.1)
[2025-10-16 10:55] VITALS: BP 132/54; PULSE 78; RESP 18; TEMP 36.2; O2SAT 96
--- NOTE | 2025-10-16 10:58 | DS.PCM_ITS ---
Providers Date of Admission: 10/14/25 Date of Discharge: 10/16/25 Primary Care Physician: Dr. Marcelo Borges MD Consultations 10/14/25 13:39 Consult: Tele-Neurology Routine Consulting Provider: [facility] Reason for Consult: Acute Ischemic Stroke/TIA EMERGENT Consult: No MD Notified: Yes Date Notified: 10/14/25 Time Notified: 12:57 Method of Notification: ED Physician Initiated Nursing Unit Staff Notify [facility] of Tele-Neurology Consult: Yes Reason For Visit: TIA, UTI Diagnosis Discharge Diagnosis (1) UTI (urinary tract infection): Status: Acute Code(s): N39.0 - Urinary tract infection, site not specified (2) Acute alteration in mental status: Status: Acute Code(s): R41.82 - Altered mental status, unspecified (3) Slurred speech: Status: Acute Code(s): R47.81 - Slurred speech Plan Patient is an 80-year-old female who presented with slurred speech, fluctuating level of sensorium as well as multiple falls 1. Transient slurred speech ? Suspected to be secondary to TIA admitted to monitored bed initial imaging studies with head CT and CTA unremarkable ordered MRI and 2D echo. Patient already on aspirin and statin therapy will continue ? 10/15/2025; patient MRI was negative for CVA the NIH's which had been ordered on admission subsequently discontinued 2. Acute metabolic encephalopathy Secondary to cystitis patient started on ceftriaxone urine culture sent ?10/15/2025; encephalopathy resolved patient back to her baseline 3. Acute cystitis with Enterobacter species ? Patient did receive ceftriaxone in the ED without any reaction (has a reported allergy to cefaclor) urine culture sent from the ED follow-up on the result ? Patient urine cultures did show Enterobacter cloacae complex [place] Count 80,000-100,000 CFU/mL. Patient was discharged on ciprofloxacin based on sensitivities 4. Suspected dementia with occasional behavioral agitation ? Patient is on Xanax held on admission. Patient is on quetiapine did continue ? 10/15/2025; patient cooperative this a.m. 5. Hypertension ? Blood pressure controlled, will continue with permissive hypertensive protocol since CVA has been ruled out 6. Dyslipidemia ?Patient is on statin therapy, continued at home dose 7. Acute kidney injury ? Baseline creatinineFrom 08/30/2025 was 1.13,, creatinine on admission was 1.63 patient started on IV hydration with repeat BMP ordered for a.m. ? 10/16/2025; kidney function at the time of discharge was 1.23 8. Restless leg syndrome ? Patient is on pramipexole continue 9. Depression with anxiety ? Patient is on duloxetine and Xanax as needed. Xanax was held on admission 10. DVT prophylaxis ? Subcu Lovenox dose adjusted for kidney function Time spent in the patient's overall evaluation,decision-making process, review of diagnostic data, adjustment of management, discussion with other providers, nursing nursing and ancillary staff involved in patient's care documentation, 35 minutes Medications at Discharge Home Medications rosuvastatin 40 mg tablet 40 mg PO QHS CHOLESTEROL 06/30/21 menthol 4 % topical gel (Biofreeze (menthol)) 1 applic topical DAILY PRN PAIN 07/21/21 pramipexole 1 mg tablet 0.5 mg PO BID RLS 06/04/24 cholecalciferol (vitamin D3) 25 mcg (1,000 unit) capsule (Vitamin D3) 25 mcg PO DAILY vitamin 03/18/25 vitamin B complex 1 cap PO DAILY vitamin 03/18/25 aspirin 81 mg tablet 81 mg PO BID heart health 04/14/25 sucralfate 1 gram tablet 1 g PO BID stomach #180 tabs 05/19/25 duloxetine 60 mg capsule,delayed release 60 mg PO QHS mental health #90 caps 08/19/25 leucovorin 4 mg-pyridoxal phosphate 50 mg-mecobalamin 2 mg tablet (Folinic-Plus) 1 tab-cap PO QDAY #90 tabs 08/19/25 amlodipine 5 mg tablet 5 mg PO DAILY 30 days #30 tabs 08/30/25 chlorthalidone 50 mg tablet 25 mg (1/2 x 50 mg) PO QDAY 30 days #15 tabs 08/30/25 losartan 50 mg tablet 50 mg PO DAILY 30 days #30 tabs 08/30/25 quetiapine 50 mg tablet 50 mg PO BID #60 tabs 09/29/25 alprazolam 0.5 mg tablet 0.5 mg PO BID PRN restlessness #60 tabs 10/10/25 ciprofloxacin HCl 250 mg tablet (Cipro) 250 mg PO BID #20 tabs 10/16/25 Physical Exam Narrative GENERAL: In no apparent distress HEENT: Atraumatic; normocephalic EYES; Anicteric, Normal Conjunctiva NECK; supple, normal thyroid, RESPIRATORY: Diminished to auscultation CARDIOVASCULAR: Regular S1 S2, GI: soft, normoactive bowel sounds, : No Renal angle tenderness; EXTREMITIES: No edema, no clubbing, MUSCULOSKELETAL: no muscle wasting NEURO: Awake; no lateralizing signs. SKIN: No Rash PSYCH; Flat affect Weight / BMI Weight Weight: 57.3 kg Body Mass Index (BMI) 28.3 ABG / Lab / Microbiology Data 10/16/25 06:10 10/16/25 06:10 Laboratory: Laboratory Results - last 24 hr 10/16/25 06:10: WBC 5.8, RBC 3.58 L, Hgb 11.0 L, Hct 32.8 L, MCV 91.6, MCH 30.7, MCHC 33.5, RDW Std Deviation 46.3 H, RDW Coeff of [place] 13.6, Plt Count 144 L, MPV 9.5, Immature Gran % (Auto) 0.300, Neut % (Auto) 64.5, Lymph % (Auto) 24.5, [place] % (Auto) 7.1, Eos % (Auto) 3.1, Baso % (Auto) 0.5, Absolute Neuts (auto) 3.7, Absolute Lymphs (auto) 1.41, Nucleated RBC % 0, Sodium 142, Potassium 3.9, C hloride 110 H, Carbon Dioxide 22.4, Anion Gap 10, BUN 34 H, Creatinine 1.28 H, E stim Creat Clear Calc 27.79 L, Est GFR (MDRD) Non-Af 42 L, BUN/Creatinine Ratio 26.3 H, Glucose 87, Calcium 9.1 Microbiology: Microbiology 10/14/25 11:51 Urine Catheter - Catheter Urine Culture - Final Enterobacter cloacae complex D/C Instructions Discharge Activity: Return to Normal Activity Call your doctor if you observe: Fever of 101 or Higher, Shortness of breath, Fainting spells and Chest pain DC O2, CPAP, BIPAP Needs Home O2 Discharge instructions: No Meaningful Use Info Meaningful Use Meaningful Use Diagnoses (Choose all that apply): None applicable Discharge Plan Admission Admit Date/Time: 10/14/25 12:35 Attending Provider: Herminio Vuong Primary Care Provider: Marcelo Borges Discharge Orders/Prescriptions Prescriptions: New ciprofloxacin HCl [Cipro] 250 mg tablet 250 mg PO BID Qty: 20 0RF Continued pramipexole 1 mg tablet 0.5 mg PO BID aspirin 81 mg tablet 81 mg PO BID duloxetine 60 mg capsule,delayed release(DR/EC) 60 mg PO QHS Qty: 90 2RF Folinic-Plus 4-50-2 mg tablet 1 tab-cap PO QDAY Qty: 90 0RF quetiapine 50 mg tablet 50 mg PO BID Qty: 60 4RF rosuvastatin 40 mg tablet 40 mg PO QHS Biofreeze (menthol) 4 % Gel 1 applic TOPICAL DAILY PRN (Reason: PAIN) cholecalciferol (vitamin D3) [Vitamin D3] 25 mcg (1,000 unit) capsule 25 mcg PO DAILY vitamin B complex Capsule 1 cap PO DAILY losartan 50 mg Tablet 50 mg PO DAILY 30 Days Qty: 30 2RF amlodipine 5 mg Tablet 5 mg PO DAILY 30 Days Qty: 30 2RF chlorthalidone 50 mg tablet 25 mg PO QDAY 30 Days Qty: 15 0RF sucralfate 1 gram tablet 1 g PO BID Qty: 180 1RF alprazolam 0.5 mg tablet 0.5 mg PO BID PRN (Reason: restlessness) Qty: 60 0RF Referrals / Follow Up: Marcelo Borges MD [Primary Care Provider, Family Practice] - Within 2 Weeks Disposition Disposition (needs filled in before D/C Order can be placed): Home, Self Care Charges/Coding Visit Charges Inpatient E&M: 84537 Disch Hosp >30min
[2025-10-16 11:36] VITALS: BMI 28.3
--- NOTE | 2025-10-16 11:56 | CASEMGMT ---
Discharge Planning A list of?HH providers including quality and resource use data and consistent with the patient's preferred geographic region, medical needs, and insurance network was created in [facility] Guide.? This list was provided to the RN JEANNE. Yuliet Amaro, Discharge Planning Asst.
--- NOTE | 2025-10-16 12:18 | CASEMGMT ---
Patient has order for discharge. RN CM in to discuss needs at discharge, at bedside. inquired about HHC, RN JEANNE explained HHC and requirements for patient to be homebound. Patient enjoys going out to dinner and does not want to be homebound. OSMEL ANGEL informed patient and of CCN program and was agreeable to referral. OSMEL ANGEL did provide HHC list to patient and should patient reconsider in the future. Information card provided for CCN and referral was made. Patient and had no further questions or concerns.
--- NOTE | 2025-10-16 12:26 | PHA.DC.COU.R ---
Pharmacy [facility] has performed discharge medication counseling for this patient. The patient was counseled on the following discharge medications and changes in medications for homegoing review. - Ciprofloxacin 250 mg tablet The Reason for Use, instructions for use, and potential side effects were reviewed for all new medications. The patient's questions regarding all of their medications were answered. The patient was able to verbally demonstrate an understanding of their discharge medications. Medications at Discharge Home Medications rosuvastatin 40 mg tablet 40 mg PO QHS CHOLESTEROL 06/30/21 menthol 4 % topical gel (Biofreeze (menthol)) 1 applic topical DAILY PRN PAIN 07/21/21 pramipexole 1 mg tablet 0.5 mg PO BID RLS 06/04/24 cholecalciferol (vitamin D3) 25 mcg (1,000 unit) capsule (Vitamin D3) 25 mcg PO DAILY vitamin 03/18/25 vitamin B complex 1 cap PO DAILY vitamin 03/18/25 aspirin 81 mg tablet 81 mg PO BID heart health 04/14/25 sucralfate 1 gram tablet 1 g PO BID stomach #180 tabs 05/19/25 duloxetine 60 mg capsule,delayed release 60 mg PO QHS mental health #90 caps 08/19/25 leucovorin 4 mg-pyridoxal phosphate 50 mg-mecobalamin 2 mg tablet (Folinic-Plus) 1 tab-cap PO QDAY #90 tabs 08/19/25 amlodipine 5 mg tablet 5 mg PO DAILY blood pressure 30 days #30 tabs 08/30/25 chlorthalidone 50 mg tablet 25 mg (1/2 x 50 mg) PO QDAY blood pressure 30 days #15 tabs 08/30/25 losartan 50 mg tablet 50 mg PO DAILY blood pressure 30 days #30 tabs 08/30/25 quetiapine 50 mg tablet 50 mg PO BID mental health #60 tabs 09/29/25 alprazolam 0.5 mg tablet 0.5 mg PO BID PRN restlessness #60 tabs 10/10/25 ciprofloxacin HCl 250 mg tablet (Cipro) 250 mg PO BID #20 tabs 10/16/25
--- NOTE | 2025-10-16 12:47 | CHAPLAIN ---
Type of Pastoral Visit _x__ Initial Visit ___ Follow-up Visit ___ On-call Visit ___ General Patient Visit ___ Spiritual Assessment ___ Family Conference ___ Bereavement ___ Rapid Response ___ Code Blue ___ Other (describe below) Pastoral Care Referral From _x__ Patient ___ Family ___ Nurse ___ Physician ___ [employer] Door Liner ___ Document Design Specialist ___ Other (describe below) Sacrament/Intervention _x__ Active listening ___ Anointing ___ Mu-Ism ___ Bereavement ___ Communion ___ Mishel exploration ___ ___ Life review _x__ Prayer ___ Reconciliation ___ Sacrament of Sick ___ Supportive presence ___ Wedding ___ Other (describe below) Pastoral Comments patient presents self as happy and excited about going home today; pt says that she is feeling much better and admits that she does not remember even coming to the hospital; pt says she has had great treatment from many people; spouse walks into room and also is offered support; pt denies further needs but welcomes a prayer
== END 2025-10-16 13:08 | disposition home or self-care (01) | DRG 69 ==
LOC: ED 12:41 → PCU 12:56
PROVIDERS: Admitting Provider Internal Medicine; Emergency Provider Emergency Medicine; PCP Family Medicine; Visit Provider Internal Medicine
DX: G45.9 Transient cerebral ischemic attack, unspecified (principal); G93.41 Metabolic encephalopathy; F03.911 Unspecified dementia, unspecified severity, with agitation; N17.9 Acute kidney failure, unspecified; N30.00 Acute cystitis without hematuria; Z66 Do not resuscitate; I10 Essential (primary) hypertension; G25.81 Restless legs syndrome; F32.A Depression, unspecified; E78.5 Hyperlipidemia, unspecified; F41.9 Anxiety disorder, unspecified; Z79.82 Long term (current) use of aspirin; Z79.899 Other long term (current) drug therapy; Z86.718 Personal history of other venous thrombosis and embolism; Z87.891 Personal history of nicotine dependence
CPT/HCPCS: 36415; 70450; 70496; 70498; 70551; 80048; 80061; 81001; 82962; 83036; 83735; 84100; 84484; 85025; 85610; 85730; 87077; 87086; 87088; 87186; 93005; 93306; 93880; 94668; 94762; 97116; 97162; 97166; 97535; 97802; 99285; Q9967; A4216